=== PATIENT | male | born 1985 | race African-American/Black ===

== ENCOUNTER 2022-03-05 03:11 | Emergency (ER) | payer BC, SELFPAY ==
[2022-03-05 03:26] VITALS: BP 114/78; PULSE 89; RESP 18; TEMP 36.6; O2SAT 99; BMI 28.9
--- NOTE | 2022-03-05 03:43 | ED.GENADULT ---
HPI - General Adult General Chief complaint: Ear/Nose/Throat Problem Stated complaint: Right Ear Pain Time Seen by Provider: 03/05/22 03:27 History of Present Illness HPI narrative: 36-year-old man here with 2nd day of right ear pain. Is lightly congested. Otherwise no cough or cold symptoms. He noticed it was really hurting him to eat earlier. Has not noticed any problems with his teeth, they feel like they come together normally. No swelling. No trauma. Further questioning reveals that his does say that he grinds his teeth at night. He does also use ear plugs though does not always remember to [place] He has not tried any treatments. No drainage from his ear. No swimming. Neck pain. It would appear that he uses Q-tips on exam. No sore throat no difficulty swallowing. Related Data Home Medications Medication Instructions Recorded Confirmed atorvastatin 20 mg tablet 20 mg PO QHS 03/05/22 03/05/22 fluticasone propionate 50 1 spray intranasal DAILY PRN 03/05/22 03/05/22 mcg/actuation nasal spray,suspension (Allergy Relief (fluticasone)) insulin aspart U-100 100 unit/mL 1 sliding scale dose subcut 03/05/22 03/05/22 (3 mL) subcutaneous pen USEASDIRECTD insulin glargine 100 unit/mL (3 26 unit subcut QPM 03/05/22 03/05/22 mL) subcutaneous pen metformin 500 mg tablet 500 mg PO BID 03/05/22 03/05/22 omeprazole 20 mg capsule,delayed 20 mg PO DAILY 03/05/22 03/05/22 release psyllium (Hydrocil oral powder) 1 tbsp PO DAILY 03/05/22 03/05/22 Previous Rx's Medication Instructions Recorded fluocinolone acetonide oil 0.01 % 5 drp Otic (ear-right) BID 7 days 03/05/22 ear drops #15 mL Allergies Allergy/AdvReac Type Severity Reaction Status Date / Time No Known Drug Allergies Allergy Verified 03/05/22 03:25 Review of Systems Status of ROS: Reports: 6 or more systems reviewed and unremarkable except as noted in History and below [facility] Medical History DM (diabetes mellitus), type 2 GERD (gastroesophageal reflux disease) Hyperlipidemia Surgical History No significant past surgical history Social History Smoking Status: Current every day smoker What tobacco products do you use: cigarettes Do you use any of these nicotine containing products: None Second hand tobacco smoke exposure: No How often do you have a drink containing alcohol: never How often do you have six or more drinks on one occasion: Never AUDIT-C Alcohol total score: 0 Non-prescribed substance use: denies use Exam Narrative: Exam Narrative: Calm. NAD. Occasional sniffle. Breathing easily. Neck is supple without lymphadenopathy. Left TM is unremarkable as is the ear canal. Right TM suggestion of a little bit of fluid some mild erythema in the ear canal not inconsistent with cleaning I do not see edematous changes however. He is tender to placement of the speculum in various locations in the ear canal. Most tender though to palpation of the right TMJ versus the left. Of dentition is in good repair PICC does have last 2 molars extracted. There is no swelling in the area. He has a crown on the posterior-most molar. Const: Vital Signs, click to edit/add: Vital Signs - 24 hr 03/05/22 03:26 Temperature 97.9 F Pulse Rate [Right Pulse Oximeter] 89 Respiratory Rate 18 Blood Pressure [Ri ght Upper Arm] 114/78 Pulse Oximetry 99 Oxygen Delivery Me thod Room Air Documenting provider has reviewed patient's vital signs: yes Course Vital Signs Vital signs: Initial Vital Signs Temperature 97.9 F 03/05/22 03:26 Temperature Source Temporal Artery Scan 03/05/22 03:26 Pulse Rate 89 03/05/22 03:26 Respiratory Rate 18 03/05/22 03:26 Blood Pressure 114/78 03/05/22 03:26 Blood Pressure Mean 90 03/05/22 03:26 Blood Pressure Position Sitting 03/05/22 03:26 Pulse Oximetry 99 03/05/22 03:26 Oxygen Delivery Method 03/05/22 03:26 Vital Signs Temperature 97.9 F 03/05/22 03:26 Pulse Rate 89 03/05/22 03:26 Respiratory Rate 18 03/05/22 03:26 Blood Pressure 114/78 03/05/22 03:26 Pulse Oximetry 99 03/05/22 03:26 Oxygen Delivery Method 03/05/22 03:26 Temperature 97.9 F 03/05/22 04:10 Pulse Rate 79 03/05/22 04:10 Respiratory Rate 18 03/05/22 04:10 Blood Pressure 115/70 03/05/22 04:10 Pulse Oximetry 99 03/05/22 04:10 Oxygen Delivery Method 03/05/22 04:10 Medical Decision Making MDM Narrative Medical decision making narrative: Remains a little skeptical that the joint itself could be causing all of his problem. Is wondering if I could still prescribe steroid drops. Also requesting work note Discharge Plan Discharge Clinical Impression: Temporomandibular joint (TMJ) pain Patient Disposition: Home, Self-Care Condition: Stable Instructions: Temporomandibular Disorder (ED) Additional Instructions: A few times a day you can do the exercises that I described of resisted tension on the jaw and the various movements and hold each for 10 seconds. As any other joint, trying to do things that hurt. Decrease level of activity with this joint and might try icing the area as well. I like the screw top ice bags that you can full with ice and water. Ice a couple of times a day. Avoid excessive chewing in particular do not chew gum at this point. Eat softer foods over this next week or 2. Do not take large bites/open your mouth wide. You might benefit from using a silicone bite guard/mouth guard overnight; could buy in the local pharmacy. https://[employer].com/daily/pain/qkg-qcrvvygbr-cb-sgbhekv-uts-ubdu/ https://www.[employer].com/fitness-exercise/nyun-szyrpvxrp-jgj-temporomandibular-joint#1 I understand you have concerns about inflammation in your year and certainly severe plugs could be a cause of that. I have sent in some steroid drops for you to the pharmacy though I think that inflammation of the ear canal is less likely to be a problem Otherwise in the short term with a little food can take up to 800 mg of ibuprofen per dose or up to to 1000 mg of acetaminophen per dose. An alternative to the ibuprofen might be up to 500mg of naproxen 2 times daily. Be seen if not improving in 2 weeks. You might then follow-up with your primary care or a dentist. Prescriptions: New fluocinolone acetonide oil 0.01 % drops 5 drp Otic (ear-right) BID 7 Days Qty: 15 0RF No Action insulin glargine 100 unit/mL (3 mL) insulin pen 26 unit subcut QPM insulin aspart U-100 100 unit/mL (3 mL) insulin pen 1 sliding scale dose subcut USEASDIRECTD Label Comments: 4 units before breakfast, 8 units before lunch, 8 units before dinner Hydrocil Powder 1 tbsp PO DAILY Rx Instructions: mix into at least 8 oz of water or juice before administering atorvastatin 20 mg tablet 20 mg PO QHS metformin 500 mg tablet 500 mg PO BID omeprazole 20 mg capsule,delayed release(DR/EC) 20 mg PO DAILY fluticasone propionate [Allergy Relief (fluticasone)] 50 mcg/actuation spray,suspension 1 spray intranasal DAILY PRN Rx Instructions: administer into each nostril Stand Alone Forms: [facility] Info Instructions
--- OUTSIDE RECORDS SUMMARY | 2022-03-05 03:55 | XMS_ITS | Encounter Summary ---
:1985 Author Organization [place] Address [address] [facility] [place] [address] Care Team Providers Name Role Phone Gilberto Weathers MD Primary Care Provider Kiki Acevedo [facility] Unavailable [phone] Finn Harris MD Unavailable Unavailable Wanda Bautista MD Unavailable Gilberto Weathers MD Unavailable Finn Harris MD Unavailable Unavailable Wanda Bautista MD Unavailable Reason for Visit Reason Onset Date Comments Refill Request 03/28/2021 Encounter Details Date Type Department Care Team Description 03/28/2021 MyC Refill [facility] Gilberto Weathers MD Refill Request [place] [address] [place] [address] [place] [address] [facility] [place] [address] [phone] Social History Tobacco Use Types Packs/Day Years Used Date Smoking Tobacco: Every Day Cigarettes 0.3 5 Smokeless Tobacco: Never Alcohol Use Standard Drinks/Week Comments No 0 (1 standard drink = 0.6 oz pure alcoho l) Intimate Partner Violence Answer Date Recorded Within the last year, have you been afraid of your partner o r No 03/10/2021 ex-partner? Within the last year, have you been humiliated or emotionall y No 03/10/2021 abused in other ways by your partner or ex-partner? Within the last year, have you been kicked, hit, slapped, or No 03/10/2021 otherwise physically hurt by your partner or ex-partner? Within the last year, have you been raped or forced to have any No 03/10/2021 kind of sexual activity by your partner or ex-partner? Sex Assigned at Date Recorded Male 09/01/2021 8:47 AM CDT COVID-19 Exposure Response Date Recorded In the last month, have you been in contact with No / Unsure 03/10/2021 2:22 PM CDT someone who was confirmed or suspected to have Coronavirus / COVID-19? documented as of this encounter Miscellaneous Notes Telephone Encounter - Mervat Beckman RN - 03/28/2021 2:07 PM CDT Routing refill request to provider for review/approval because: Labs not current: Requested Prescriptions Pending Prescriptions Disp Refills ??? insulin glargine (LANTUS PEN) 100 UNIT/ML pen Sig: Inject 20 Units Subcutaneous At Bedtime Long Acting Insulin Protocol Failed - 03/28/2021 2:03 PM Failed - Serum creatinine on file in past 12 months Recent Labs Lab Test 11/04/18 1451 CR 0.70 Ok to refill medication if creatinine is low Passed - HgbA1C in past 3 or 6 months If HgbA1C is 8 or greater, it needs to be on file within the past 3 months. If less than 8, must beon file within the past 6 months. Recent Labs Lab Test 12/10/20 1018 A1C 12.7* Passed - Medication is active on med list Passed - Patient is age 18 or older Passed - Recent (6 mo) or future (30 days) visit within the authorizing provider's specialty Patient had office visit in the last 6 months or has a visit in the next 30 days with authorizing provider or within the authorizing provider's specialty. See Patient Info tab in inbasket, or Choose Columns in Meds & Orders section of the refill encounter. Telephone Encounter - Mervat Rodrigues - 03/28/2021 1:49 PM CDT Patient called and confirmed [facility] [address] even though [facility] [place]. Telephone Encounter - Mervat Beckman RN - 03/28/2021 1:09 PM CDT Myc message sent to patient asking which [facility] sent to Telephone Encounter - Valentina Dumont - 03/28/2021 1:01 PM CDT Patient calls and is out of medication. Please see MyChart message. documented in this encounter Plan of Treatment Upcoming Encounters Date Type Specialty Care Team Description 06/16/2022 Virtual Visit Endocrinology Gilberto Weathers MD [address] [place], [place] [phone] Ky Marcos MD [address] [place] [phone] documented as of this encounter Visit Diagnoses Diagnosis Type 2 diabetes mellitus with hyperglyce roula, with long-term current use of insulin (H) documented in this encounter Care Teams Administrative Coordinator Relationship Specialty Start Date End Date Gilberto Weathers, PCP - General Internal Medicine 01/13/16 [address] [place], [place] [address] Kiki Acevedo Pharmacist Pharmacist 11/08/18 04/29/21 Winter [facility] [address] [id number] Finn Harris MD Endocrinology, 12/23/20 MD [place] [facility], [facility] Metabolism Wanda Bautista MD Ophthalmology 12/31/[address] [place] [address] [place] [address] Gilberto Weathers, Assigned PCP 01/05/21 [place] [address] Finn aHrris Assigned Endocrinology 02/09/21 MD [place] Provider NO INFO AVAILABLE Wanda Bautista, Assigned Surgical 02/02/21 Provider [address] [place] [address] documented as of this encounter
--- OUTSIDE RECORDS SUMMARY | 2022-03-05 03:55 | XMS_ITS | Encounter Summary ---
:1985 Author Organization [place] Address [facility] [place] [address] Care Team Providers Name Role Phone Gilberto Weathers MD Primary Care Provider Finn Harris MD Unavailable Unavailable Wanda Bautista MD Unavailable Gilberto Weathers MD Unavailable Finn Harris MD Unavailable Unavailable Wanda Bautista MD Unavailable Encounter Details Date Type Department Care Team Description 05/12/2021 Travel Social History Tobacco Use Types Packs/Day Years Used Date Smoking Tobacco: Every Day Cigarettes 0.5 5 Smokeless Tobacco: Never Alcohol Use Standard [...] last month, have you been in contact Unable to assess 05/12/2021 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 documented as of this encounter Plan of Treatment Upcoming Encounters Date Type Specialty Care Team Description 06/16/2022 Virtual Visit Endocrinology Gilberto Weathers MD [address] [place] [address] Ky Marcos MD [address] [place] [address] documented as of this encounter Visit Diagnoses Not on filedocumented in this encounter Additional Health Concerns Infection Onset Date Last Indicated Resolved Time Rule Out COVID-19 05/12/2021 05/12/2021 05/12/2021 12: 08 PM MULLING MACHINE OPERATOR COVID-19 05/12/2021 05/12/2021 06/02/2021 11:39 PM MULLING MACHINE OPERATOR documented as of this encounter Care Teams Net Maker Relationship Specialty Start Date End Date Gilberto Weathers, PCP - General Internal Medicine 01/13/[address] [place], [place] [phone] Finn Harris MD Endocrinology, 12/23/20 MD [place] Diabetes, and Metabolism Wanda Bautista MD Ophthalmology 12/31/[address] [place] [phone] Gilberto Weathers, Assigned PCP 01/05/21 [address] [place] [address] Finn Harris Assigned Endocrinology 02/09/21 MD [place] Provider NO INFO AVAILABLE Wanda Bautista, Assigned Surgical 02/02/21 MD Provider [address] [place] [phone] documented as of this encounter
--- OUTSIDE RECORDS SUMMARY | 2022-03-05 03:55 | XMS_ITS | Encounter Summary ---
:1985 Author Organization [place] Address [facility] [place] [address] Care Team Providers Name Role Phone Gilberto Weathers MD Primary Care Provider Kiki Acevedo [facility] Unavailable [phone] Finn Harris MD Unavailable Unavailable Wanda Bautista MD Unavailable Gilberto Weathers MD Unavailable Finn Harris MD Unavailable Unavailable Wanda Bautista MD Unavailable Encounter Details Date Type Department Care Team Description 03/10/2021 Travel Social History Tobacco Use Types Packs/Day [...] Weathers MD [address] [place], [place] [phone] Ky Marcos MD [address] [place] [address] documented as of this encounter Visit Diagnoses Not on filedocumented in this encounter Care Teams Fermenter Champagne Relationship Specialty Start Date End Date Gilberto Weathers, PCP - General Internal Medicine 01/13/16 MD [address] [place], [place] [phone] Kiki Acevedo Pharmacist Pharmacist 11/08/18 [facility] [address] [phone] Finn Harris MD Endocrinology, 12/23/20 MD [place] [facility], and Metabolism Wanda Bautista MD Ophthalmology 12/31/[address] [place] [phone] Gilberto Weathers, Assigned PCP 01/05/21 MD [address] [place], [place] [address] Finn Harris Assigned Endocrinology 02/09/21 MD [place] Provider NO INFO AVAILABLE Wanda Bautista, Assigned Surgical 02/02/21 MD Provider [address] [place] [phone] documented as of this encounter
--- OUTSIDE RECORDS SUMMARY | 2022-03-05 03:55 | XMS_ITS | Encounter Summary ---
:1985 Author Organization [place] Address [address] [facility] [place] [address] Care Team Providers Name Role Phone Gilberto Weathers MD Primary Care Provider Finn Harris MD Unavailable Unavailable Wanda Bautista MD Unavailable Gilberto Weathers MD Unavailable Finn Harris MD Unavailable Unavailable Wanda Bautista MD Unavailable Mariah Mcmanus [facility] Unavailable Ky Marcos MD Unavailable Encounter Details Date Type Department Care Team Description 02/27/2022 Lab [facility] Jesus quintana for hepatitis C screening Meredith Laborator test (Primary Dx) [address] [place] [address] Social History Tobacco Use Types Packs/Day Years [...] Date Recorded Male 09/01/2021 8:47 AM CDT documented as of this encounter Plan of Treatment Upcoming Encounters Date Type Specialty Care Team Description 06/16/2022 Virtual Visit Endocrinology Gilberto Weathers MD [address] [place], [place] [address] Ky Marcos MD [address] [place] [address] Scheduled Orders Name Type Priority Associated Diagnoses Order S chedule Hepatitis C Screen Lab Routine Need for hepatitis C E xpected: 02/24/2022 Reflex to HCV RNA Quant screening test (A pproximate), and Genotype Expires: 2022 documented as of this encounter Visit Diagnoses Diagnosis Need for hepatitis C screening test - Pr imary Special screening examination for other specified viral diseases documented in this encounter Care Teams Vehicle Maintenance Technician Relationship Specialty Start Date End Date Gilberto Weathers, PCP - General Internal Medicine 01/13/16 [address] [place], [place] [address] Finn Harris MD Endocrinology, 12/23/20 MD [place] Diabetes, and Metabolism Wanda Bautista MD Ophthalmology 12/31/[address] [place] [phone] Gilberto Weathers, Assigned PCP 01/05/21 MD [address] [place], [place] [address] Finn Harris Assigned Endocrinology 02/09/21 MD [place] Provider NO INFO AVAILABLE Wanda Bautista, Assigned Surgical 02/02/[address] [place] [phone] Mariah Mcmanus, Assigned [facility] Pharmacist 02/18/22 [facility] [address] [facility] [address] [place] [address] Ky Marcos MD Physician Endocrinology, 02/20/22 [address] [place] [facility], [place] [address] documented as of this encounter
--- OUTSIDE RECORDS SUMMARY | 2022-03-05 03:55 | XMS_ITS | Encounter Summary ---
:1985 Author Organization [place] Address [facility] 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 documented as of this encounter Plan of Treatment Upcoming Encounters Date Type Specialty Care Team Description 06/16/2022 Virtual Visit Endocrinology Gilberto Weathers MD [address] [place] [address] Ky Marcos MD [address] [place] [address] documented as of this encounter Visit Diagnoses Not on filedocumented in this encounter Additional Health Concerns Infection Onset Date Last Indicated Resolved Time Rule Out COVID-19 06/10/2021 06/10/2021 06/10/2021 6:5 7 PM DISTILLERY MILLER HELPER documented as of this encounter Care Teams Plant Pathology Teacher Relationship Specialty Start Date End Date Gilberto Weathers, PCP - General Internal Medicine 01/13/16 [place] [address] Finn Harris MD Endocrinology, 12/23/20 MD [place] [facility], [facility] Metabolism Wanda Bautista, Ophthalmology 12/31/[address] [place] [phone] Gilberto Weathers, Assigned PCP 01/05/21 [address] [place], [place] [address] Finn Harris Assigned Endocrinology 02/09/21 MD [place] Provider NO INFO AVAILABLE Wanda Bautista, Assigned Surgical 02/02/21 MD Provider [address] [place] [phone] documented as of this encounter
--- OUTSIDE RECORDS SUMMARY | 2022-03-05 03:55 | XMS_ITS | Encounter Summary ---
:1985 Author Organization [place] Address [facility] [place] [address] Care Team Providers Name Role Phone Gilberto Weathers MD Primary Care Provider Finn Harris MD Unavailable Unavailable Wanda Bautista MD Unavailable Gilberto Weathers MD Unavailable Finn Harris MD Unavailable [facility] Unavailable Sarah Castañeda [facility] Unavailable Mariah Mcmanus [facility] Unavailable Ky Marcos MD Unavailable Reason for Visit Reason Onset Date Comments Refill Request 02/23/2022 Continuous Blood Glu c Sensor (FREESTYLE JONI [address]) [facility] Encounter Details Date Type Department Care Team Description 02/23/2022 Refill [facility] Finn Harris l Request Clinic Baldo Houston MD (Continuous Blood Gluc [address] [facility] NO INFO Sensor (DARRENSTYLE JACKELYN Bernardo [id number] AVAILABLE [address]) [facility]) [phone] Social History Tobacco Use Types Packs/Day Years [...] AM CDT documented as of this encounter Miscellaneous Notes Telephone Encounter - Antonella Reeves RN - 02/27/2022 1:42 PM CDT Routing refill request to provider for review/approval because: Drug not on the [facility] refill protocol Previously ordered by Endocrinology. Antonella Reeves RN [facility] Telephone Encounter - Janusz Kelly - 02/23/2022 8:39 AM CDT Requested Prescriptions Pending Prescriptions Disp Refills ??? Continuous Blood Gluc Sensor (FREESTYLE JONI 2 SENSOR) MISC 6 each 3 Si each every 14 days There is no refill protocol information for this order Last office visit: Visit date not found with prescribing provider: Dr. Harris Future Office Visit: [facility] documented in this encounter Plan of Treatment Upcoming Encounters Date Type Specialty Care Team Description 06/16/2022 Virtual Visit Endocrinology Gilberto Weathers MD [address] [place] [address] Ky Marcos MD [address] [place] [address] documented as of this encounter Visit Diagnoses Diagnosis Type 1 diabetes mellitus without complic ation (H) Type I (juvenile type) diabetes mellitus without mention of complication, not stated as uncontrolled documented in this encounter Care Teams Haul Truck Driver Relationship Specialty Start Date End Date Gilberto Weathers, PCP - General Internal Medicine 01/13/16 [address] [place] [address] Finn Harris MD Endocrinology, 12/23/20 MD [place] Diabetes, and Metabolism Wanda Bautista, Ophthalmology 12/31/[address] [place] [phone] Gilberto Weathers, Assigned PCP 01/05/21 [address] [place] [address] Finn Harris Assigned Endocrinology 02/09/21 MD [place] Provider NO INFO AVAILABLE Wanda Bautista, Assigned Surgical 02/02/21 MD Provider [address] [place] [phone] Sarah Castañeda, Pharmacist 02/03/22 02/23/22 [facility] [address] [place] [address] [place] [address] Mariah Mcmanus, Assigned [facility] Pharmacist 02/18/22 [facility] [address] [facility] [address] [place], [place] [address] Ky Marcos MD Physician Endocrinology, 02/20/22 [address] [place] [facility], [address] Metabolism [place], [place] [phone] documented as of this encounter
--- OUTSIDE RECORDS SUMMARY | 2022-03-05 03:55 | XMS_ITS | Encounter Summary ---
:1985 Author Organization English Address [facility] [place] [address] Care Team Providers Name Role Phone Gilberto Weathers MD Primary Care Provider Finn Harris MD Unavailable Unavailable Wanda Bautista MD Unavailable Gilberto Weathers MD Unavailable Finn Harris MD Unavailable Unavailable Wanda Bautista MD Unavailable Reason for Referral Consultation (Routine: Next available opening) - Pending Review Specialty Diagnoses / Procedures Referred By Contact Refer red To Contact Diagnoses Lab test positive for detection of COVID-19 virus Radha Calvillo CNP [facility] [address] [place] [address] Referral ID Status Reason Start Date Expiration Date Visits V isits Requested Authorized [id number] Pending 05/12/2021 05/12/2022 1 1 Review OTICS PROSTHETICS TECHNICIAN Reason for Visit Reason Comments Covid Concern Pt reports fever, body aches , PALUMBO andf sore throat that started yesterday. Encounter Details Date Type Department Care Team Description 05/12/[address] [facility] Radha Calvillo CNP Lab test positive for [facility] detection of COVID-19 Dept PA virus [address] [facility] [address] [place] [address] JACKELYN HUERTAS [id number] [phone] Social History Tobacco Use Types Packs/Day Years [...] contact Unable to assess 05/12/2021 10:58 AM ORTHOTICS PROSTHETICS TECHNICIAN with someone who was confirmed or suspected to have Coronavirus / COVID-19? documented as of this encounter Last Filed Vital Signs Vital Sign Reading Time Taken Comments Blood Pressure 133/59 05/12/2021 10:59 AM ORTHOTICS PROSTHETICS TECHNICIAN Pulse 111 05/12/2021 10:59 AM ORTHOTICS PROSTHETICS TECHNICIAN Temperature 37.7 ??C (99.8 ??F) 05/12/2021 10:59 AM ORTHOTICS PROSTHETICS TECHNICIAN Respiratory Rate 16 05/12/2021 10:59 AM ORTHOTICS PROSTHETICS TECHNICIAN Oxygen Saturation 100% 05/12/2021 11:20 AM ORTHOTICS PROSTHETICS TECHNICIAN Inhaled Oxygen Concentration - - Weight - - Height - - Body Mass Index - - documented in this encounter Discharge Instructions Discharge InstructionsRadha Calvillo CNP - 05/12/2021 12:16 PM CST We know it can be scary to hear that you might have COVID-19. So our team can help track your symptoms and make sure you are doing ok over the next two weeks, we use a program called [email or web address] to keep in touch. When you receive an email from [facility], please consider enrolling in our monitoringprogram. There is no cost to you for monitoring. Here is a URL where you can learn more: [email or web address] Discharge Instructions COVID-19 COVID-19 is the disease caused by a new coronavirus. The virus spreads from [id number]-oybdmu primarily by droplets when an infected person coughs or sneezes and the droplets are then breathed in by another person. There are tests available to diagnose COVID-19. You may have been diagnosed with COVID, may be being tested for COVID and have a pending test result, or may have been exposed to COVID. Symptoms of COVID-19 Many people have no symptoms or mild symptoms. Symptoms may usually appear 4 to 5 days (up to 14 days) after contact with a person with COVID-19. Some people will get severe symptoms and pneumonia. Usual symptoms are: ? Fever ? Cough ? Trouble breathing Less common symptoms are: Headache, body aches, sore throat, sneezing, diarrhea, loss of taste or smell. Isolation and Quarantine You may have been seen because you have symptoms, had an exposure, or had some other concern about possible COVID. The best way to stop the spread of the virus is to avoid contact with others. Isolation refers to sick people staying away from people who are not sick. A person in quarantine islimiting activity because they were exposed and are waiting to see if they might become sick. If you test positive for COVID, you should stay home (isolation) for at least 10 days after your symptoms began, and for 24 hours with no fever and improvement of symptoms--whichever is longer. (Your fever should be gone for 24 hours without using fever-reducing medicine). If you have no symptoms, youshould stay home (isolation) for 10 days from the day of the test. If you have been vaccinated for COVID, the vaccination will not cause you to test positive so a positive test result generally is a ???true positive?? . For example, if you have a fever and cough for 6 days, you need to stay home 4 more days with no fever for a total of 10 days. Or, if you have a fever and cough for 10 days, you need to stay home one more day with no fever for a total of 11 days. If you have a high-risk exposure to COVID (you spent 15 minutes or more within six feet of somebody who has COVID), you should stay home (quarantine) for 14 days, unless you are vaccinated. Even if youtest negative for COVID, the CDC recommends a 14-day quarantine from the time of your last exposure to that individual (unless you are vaccinated). There are options for a shortened (<14 day quarantine) you can review at: [email or web address]/coronavirus/close.html#long If you live in the same house as somebody with COVID and cannot separate from them, you will need toquarantine for 14-days after that person's isolation (infectious) period. That means that you may need to quarantine for 24-days after that person became symptomatic/ill. If you are vaccinated and do not develop symptoms, you do not need to quarantine after exposure. If you have symptoms but a negative test, you should stay at home until you are symptom-free and without fever for 24 hours, using the same judgment you would for when it is safe to return to work/school from strep throat, influenza, or the common cold. If you worsen, you should consider being re-evaluated. If you are being tested for COVID because of symptoms and your test is pending, you should stay homeuntil you know your test result. If I have COVID, how should I protect myself and others? Do not go to work or school. Have a friend or relative do your shopping. Do not use public transportation (bus, train) or ridesharing (Lyft, Uber). Separate yourself from other people in your home. As much as possible, you should stay in one room and away from other people in your home. Also, use a separate bathroom, if possible. Avoid handling pets or other animals while sick. Wear a facemask if you need to be around other people and cover your mouth and nose with a tissue when you cough or sneeze. Avoid sharing personal household items. You should not share dishes, drinking glasses, forks/knives/spoons, towels, or bedding with other people in your home. After using these items, they should be washed with soap and water. Clean parts of your home that are touched often (doorknobs, faucets, countertops, etc.) daily. Wash your hands often with soap and water for at least 20 seconds or use an alcohol-based hand advertising photographer containing at least 60% alcohol. Avoid touching your face. Treat your symptoms. You can take Acetaminophen (Tylenol) to treat body aches and fever as needed for comfort. Ibuprofen (Advil or Motrin) can be used as well if you still have symptoms after taking Tylenol. Drink fluids. Rest. Watch for worsening symptoms such as shortness of breath/difficulty breathing or very severe weakness. Employers/workplaces are being asked by the Centers for Disease Control (CDC) to not request notes/documentation for you to return to work or prove that you were ill. You may choose to show your employer this paperwork. Also, repeat testing should not be required to return to work. Exercise/Sports in rare cases, COVID could affect your heart in a way that makes exercise or participation in sports dangerous. If you have a mild COVID illness (fever, cough, sore throat, and similar symptoms but no difficulty breathing or abnormalities of the lung): After your COVID symptoms have resolved, wait 14-days beforereturning to activity. If you have more than a mild illness (meaning that you have problems with your breathing or lungs) or if you participate in competitive or strenuous activity or have a history of heart disease: Please see your primary doctor/provider prior to return to activity/competition. Antibody treatments are available for patients with mild to moderate COVID illness in order to prevent severe illness. In general, only patients with risk factors for severe illness are eligible for treatment. For more information, to see if you are eligible, and to find treatment, go to the [facility]: [email or web address]/diseases/[email or web address]/[email or web address].html Return to the Emergency Department if: If you are developing worsening breathing, shortness of breath, or feel worse you should seek medical attention. If you are uncertain, contact your health care provider/clinic. If you need emergency medical attention, call 911 and tell them you have been ill. OTICS PROSTHETICS TECHNICIAN documented in this encounter Medications at Time of Discharge Medication Sig Dispensed Refills Start Date End Date alcohol swab prep Use to swab area of 100 each 0 9 padsIndications: injection/mendez as Uncontrolled type 2 directed. diabetes mellitus without complication, without long-term current use of insulin atorvastatin (LIPITOR) Take 1 tablet (20 mg) 90 tablet 3 20 MG by mouth daily tabletIndications: Hyperlipidemia LDL goal <100 blood glucose (HOMERO Lancing device to be 1 each 0 03/14 MICROLET 2) lancing used with lancets. deviceIndications: Uncontrolled type 2 diabetes mellitus without complication, without long-term current use of insulin blood glucose (CONTOUR TEST blood sugar ONCE 100 strip 0 NEXT TEST) test DAILY stripIndications: Uncontrolled type 2 diabetes mellitus without complication, without long-term current use of insulin blood glucose Use to test blood 100 each 0 03/14/2019 monitoring (HOMERO sugar One times MICROLET) daily. lancetsIndications: Uncontrolled type 2 diabetes mellitus without complication, without long-term current use of insulin blood glucose To check Blood 1 kit 0 03/14/2019 monitoring (CONTOUR Glucose one time NEXT MONITOR W/DEVICE daily KIT) meter device kitIndications: Uncontrolled type 2 diabetes mellitus without complication, without long-term current use of insulin fluticasone (FLONASE) [place] 1-2 sprays into 16 g 3 50 MCG/ACT nasal both nostrils daily sprayIndications: Congestion of paranasal sinus glucose (BD GLUCOSE) 4 Take 3 tablets by 30 tablet 11 2020 g chewable mouth daily as needed tabletIndications: Type for low blood sugar 1 diabetes mellitus with other specified complication (H) ibuprofen Take 1 tablet (600 20 tablet 0 01/13/2021 (ADVIL/MOTRIN) 600 MG mg) by mouth every 6 tabletIndications: hours as needed Paronychia of finger of right hand omeprazole (PRILOSEC) Take 1 capsule (20 30 capsule [address] mg) by mouth daily capsuleIndications: Epigastric pain polyethylene glycol Take 17 g by mouth 0 02/12/20 21 (MIRALAX) 17 GM/Dose daily as needed for powderIndications: constipation Chronic idiopathic constipation Continuous Blood Gluc 1 each daily 1 each 0 02/05/2021 0 12/03/2021 [employer] Blasting (FREESTYLE JONI 2 READER) DEVIIndications: Type 1 diabetes mellitus without complication (H) Continuous Blood Gluc 1 each every 14 days 6 each 3 01/2202/27/2022 Sensor (FREESTYLE JONI 2 SENSOR) MISCIndications: Type 1 diabetes mellitus without complication (H) insulin glargine Inject 20 Units 15 mL 1 03/28/2021 (LANTUS PEN) 100 Subcutaneous At UNIT/ML penIndications: Bedtime Type 2 diabetes mellitus with hyperglycemia, with long-term current use of insulin (H) insulin pen needle (BD Use 1-4 pen needles 100 each 11 11/2209/01/2021 AUTOSHIELD DUO) 30G X 5 daily or as directed. MMIndications: Type 1 diabetes mellitus with other specified complication (H) metFORMIN (GLUCOPHAGE) TAKE 1 TABLET(1000 60 tablet 0 03/1409/01/2021 1000 MG MG) BY MOUTH TWICE tabletIndications: DAILY WITH MEALS Uncontrolled type 2 diabetes mellitus without complication, without long-term current use of insulin documented as of this encounter ED Notes Finn Markham RN - 05/12/2021 10:59 AM CST Pt reports fever, body aches, [place] andf sore throat that started yesterday. Radha Mathur CNP - 05/12/2021 10:54 AM CST History Chief Complaint: Covid Concern The history is provided by the patient. Ana Mcgowan is a 35 year old male with history of DM II, sinus tachycardia, headaches, who presents with Covid concern. Last night the patient noted onset of sore throat and rhinorrhea. He states he developed chills and myalgias. He did not measure his temperature but felt hot. He has an associated cough and intermittent headache which was improved with Tylenol and resting. He notes no sick contacts. He did have the [employer] Covid vaccination in August 2020, but not has not had a booster. He has not had his flu shot. He states he took Tylenol last evening but has not taken any medication today. He is concerned for Covid testing. He has been eating and drinking without difficulty. He denies abdominal pain and states he has mild constipation which is not uncommon. He notes his blood sugar levels are normal for him recently. Review of Systems Constitutional: Positive for chills. Negative for activity change, fatigue and fever. HENT: Positive for congestion, rhinorrhea and sore throat. Negative for ear pain, tinnitus, trouble swallowing and voice change. Eyes: Negative for photophobia and visual disturbance. Respiratory: Positive for cough. Negative for chest tightness, shortness of breath, wheezing and stridor. Cardiovascular: Negative for chest pain and palpitations. Gastrointestinal: Positive for constipation. Negative for abdominal pain, diarrhea, nausea and vomiting. Musculoskeletal: Positive for myalgias. Negative for arthralgias, back pain, neck pain and neck stiffness. Skin: Negative for rash. Neurological: Positive for headaches. Negative for dizziness, tremors, seizures, syncope, facial asymmetry, speech difficulty, weakness, light-headedness and numbness. Psychiatric/Behavioral: Negative for confusion. All other systems reviewed and are negative. Allergies: The patient has no known allergies. Medications: Atorvastatin Flonase Glucose Insulin glargine Metformin Miralax Omeprazole Past Medical History: Chronic constipation Episodic cluster headache Obesity Sinus tachycardia Type 2 diabetes Past Surgical History: The patient denies past surgical history. Family History: Mother: Glaucoma Father: Hypertension Social History: Presents to the emergency department alone History of tobacco use disorder Physical Exam Patient Vitals for the past 24 hrs: BP Temp Temp src Pulse Resp SpO2 05/12/21 1120 -- -- -- 103 -- 100 % 05/12/21 1059 133/59 99.8 ??F (37.7 ??C) Oral 111 16 99 % Physical Exam Nursing notes reviewed. Vitals reviewed. General: Alert. Well kept. Eyes: Conjunctiva non-injected, non-icteric. Neck/Throat: Moist mucous membranes. Normal voice. No nuchal rigidity. Tonsils 2+ with erythema but no exudate. Uvula midline. No trismus. Cardiac: Regular rhythm. Normal heart sounds. Pulmonary: Clear and equal breath sounds bilaterally. Speaking in full sentences Abdomen: Soft and nontender. Musculoskeletal: Normal gross range of motion of all 4 extremities. Neurological: Alert and oriented x4. Skin: Warm and dry. Normal appearance of visualized exposed skin without rashes or petechiae. Psych: Affect normal. Good eye contact. Emergency Department Course Laboratory: Labs Ordered and Resulted from Time of ED Arrival to Time of ED Departure INFLUENZA A/B & SARS-COV2 PCR MULTIPLEX - Abnormal Result Value Influenza A PCR Negative Influenza B PCR Negative SARS CoV2 PCR Positive (*) STREPTOCOCCUS A RAPID SCREEN W REFELX TO PCR - Normal Group A Strep antigen Negative GROUP A STREPTOCOCCUS PCR THROAT SWAB Emergency Department Course: Reviewed: I reviewed nursing notes, vitals, Care Everywhere and MIIC Assessments: 1114 I obtained history and examined the patient as noted above. He drank three 8 oz glasses of water. 1237 I rechecked the patient and explained findings. Consults: 1204 I spoke with pharmacy regarding the patient's labs. Interventions: 1247 Tylenol 975 mg PO Disposition: The patient was discharged to home. Impression & Plan Medical Decision Making: Ana Mcgowan is a 35 year old male who presents with symptoms that are concerning for possible COVID-19. Vital signs are reassuring, and the patient is not hypoxic. No extra work of breathing, normal mentation, and I do not believe that the patient requires hospitalization at this time. The patientdoes not currently meet criteria for hospitalization. Patient given [facility] guidelines for home isolation and will follow up with PCP. Patient will drink plenty of fluids, take anti-pyretics and OTC decongestants. He was instructed on follow-up with the [place] Department of health to register for monoclonal antibodies and was ordered for Get [facility]. Patient asked to return for severe difficulty breathing or new onset chest pain or other worrisome concerns. Diagnosis: ICD-10-CM 1. Lab test positive for detection of COVID-19 virus U07.1 COVID-19 [facility] Referral Discharge Medications: New Prescriptions No medications on file Scribe Disclosure: I, Jax Knox, am serving as a scribe at 11:06 AM on 05/12/2021 to document services personally performed by Radha Calvillo DNP based on my observations and the provider's statements to me. Radha Calvillo CNP 05/12/21 1411 OTICS PROSTHETICS TECHNICIAN documented in this encounter Miscellaneous Notes Result Encounter Note - Antonio Paulson RN - 05/12/2021 12:49 PM CST Group A Streptococcus PCR is NEGATIVE No treatment or change in treatment [facility] ED lab result Strep Group A protocol. OTICS PROSTHETICS TECHNICIAN documented in this encounter Plan of Treatment Upcoming Encounters Date Type Specialty Care Team Description 06/16/2022 Virtual Visit Endocrinology Gilberto Weathers MD [address] [place] [address] Ky Marcos MD [address] [place], [place] [id number] Scheduled Referrals Name Type Priority Associated Diagnoses Order S chedule COVID-19 Get[facility] Referral Routine: Next Lab test positive Order ed: Loop Referral available opening for detection of 05/12 COVID-19 virus documented as of this encounter Procedures Procedure Name Priority Date/Time Associated Comments Diagnosis INFLUENZA A/B & STAT 05/12/2021 11:03 Results for this SARS-COV2 PCR AM ORTHOTICS PROSTHETICS TECHNICIAN procedure are in MULTIPLEX the results section. STREPTOCOCCUS A RAPID STAT 05/12/2021 11:03 Re sults for this SCREEN W REFELX TO PCR AM ORTHOTICS PROSTHETICS TECHNICIAN proce dure are in the results section. GROUP A STREPTOCOCCUS STAT 05/12/2021 11:03 Re sults for this PCR THROAT SWAB AM ORTHOTICS PROSTHETICS TECHNICIAN procedure ar e in the results section. documented in this encounter Results Group A Streptococcus PCR Throat Swab (05/12/2021 11:03 AM ORTHOTICS PROSTHETICS TECHNICIAN) [facility] Method Time Signature Group A strep Not Detected Not Detected 05/12/2021 [facility] by PCR 3:20 PM ORTHOTICS PROSTHETICS TECHNICIAN LABORATORY Specimen Anatomical Collection Method Collection Time Receive d Time (Source) Location / / Volume Laterality Swab STRUCTURE OF Non-blood 05/12/2021 11:03 05/12/2021 ANTERIOR PORTION Collection / AM ORTHOTICS PROSTHETICS TECHNICIAN 11:25 AM CS T OF NECK / Unknown Unknown Narrative [facility]ORATORY - 05/12/2021 3:[address] The Xpert Xpress Strep A test, performed on the GeneXpert?? Instrument Systems, is a rapid, qualitative in vitro diagnostic t est for the detection of Streptococcus pyogenes (Group A ? - hemolytic Streptococcus, Strep A) in thr oat swab specimens from patients with signs and symptoms of pharyngitis. The Xpert X press Strep A test can be used as an aid in the diagnosis of Group A Streptococcal p haryngitis. The assay is not intended to monitor treatment for Group A Streptococ cus infections. The Xpert Xpress Strep A test utilizes an automated real-time polymera se chain reaction (PCR) to detect Streptococcus pyogenes DNA. Radha [place] [employer] DEAL[facility] LAB - MICRO GENERAL ORDERABL ES Performing Organization Address City/State/ZIP Code Phon e Number [facility] [place] [place] [id number] Diag. Lab [address] [facility] Infectious [place], [place] [phone] Diseases Diagnostic [id number], [facility] Lab (IDDL) [address] [facility], [address] Streptococcus A Rapid Scr w Reflx to PCR (05/12/2021 11:03 AM ORTHOTICS PROSTHETICS TECHNICIAN) Analysis Performed At Patho logist Time Signature Group A Strep Negative Negative 05/12/2021 LABORATORY antigen 11:25 AM ORTHOTICS PROSTHETICS TECHNICIAN Specimen Anatomical Collection Method Collection Time Receive d Time (Source) Location / / Volume Laterality Swab STRUCTURE OF Non-blood 05/12/2021 11:03 05/12/2021 ANTERIOR PORTION Collection / AM ORTHOTICS PROSTHETICS TECHNICIAN 11:10 AM CS T OF NECK / Unknown Unknown Radha [place] [employer] LAB - MICRO GENERAL ORDERABL ES Performing Organization Address City/State/ZIP [place] [phone] [facility] Lab [address] 1[address] floor, [address] (ABNORMAL) Symptomatic; Yes; 05/11/2021 Influenza A/B & SARS-CoV2 (COVID-19) Virus PCR MultiplexNasopharyngeal (05/12/2021 11:03 AM ORTHOTICS PROSTHETICS TECHNICIAN) Patholo gist Method Time Signature Influenza A Negative Negative 05/12/2021 LABORATORY PCR 12:08 PM ORTHOTICS PROSTHETICS TECHNICIAN Influenza B Negative Negative 05/12/2021 LABORATORY PCR 12:08 PM ORTHOTICS PROSTHETICS TECHNICIAN SARS CoV2 PCR Positive (A) Negative 05/12/2021 LABORATOR Y 12:08 PM ORTHOTICS PROSTHETICS TECHNICIAN Comment: POSITIVE: SARS-CoV-2 (COVID-19) RNA detected, presumed positive. Specimen Anatomical Location / Collection Method Collection Bhargav e Received Time (Source) Laterality / Volume Swab NASOPHARYNGEAL Non-blood 05/12/2021 11:03 STRUCTURE / Unknown Collection / AM ORTHOTICS PROSTHETICS TECHNICIAN 11:10 AM ORTHOTICS PROSTHETICS TECHNICIAN Unknown Narrative LABORATORY - 05/12/2021 12:08 PM ORTHOTICS PROSTHETICS TECHNICIAN Testing was performed using the leroy SARS-CoV-2 & Influenza A/B Assay on the leroy Lacy System. This test should be ordered for the detection of SARS-CoV-2 and influenza viruses in individuals who meet clinical and/or epidemiological cri teria. Test performance is unknown in asymptomatic patients. This test is for in vitro diagnostic use under the FDA EUA for laboratories certified under CLIA to p erform moderate and/or high complexity t esting. This test has not been FDA cleared or approved. A negative result does not rule out the presence of PCR inhibitors in the specimen or target RNA in concen tration below the limit of detection for the assay. If only one viral target is positive but coinfection with multiple targets is suspected, the sample should be re-tested with another FDA cleared, appr emelia or authorized test, if coinfection would change clinical management. [facility] Laboratories are certified under the Clinical Laboratory Improvement Amendments of 1988 (CLIA-88) as qualified to perform moderate and/or hig h complexity laboratory testing. Radha Calvillo AUTOMOBILE DEALER LAB - MICRO GENERAL ORDERABL ES Performing Organization Address City/State/ZIP Code Phon e Number LABORATORY [place] [address] Care Lab [address] [place], [address] documented in this encounter Visit Diagnoses Diagnosis Lab test positive for detection of COVID -19 virus documented in this encounter Administered Medications Inactive Administered Medications - up to 3 most recent administrations Medication Order MAR Action Action Date Dose Rate Site acetaminophen (TYLENOL) tablet Given by Other 05/12/2021 12:47 PM ORTHOTICS PROSTHETICS TECHNICIAN 975 mg 975 mg 975 mg, Oral, ONCE, On 05/12/21 at 1240, For 1 dose, Maximum acetaminophen dose from all sources = 75 mg/kg/day not to exceed 4 grams/day. documented in this encounter Active and Recently Administered Medications Times are shown in ORTHOTICS PROSTHETICS TECHNICIAN. Scheduled Medication Order 05/10/2021 05/11/2021 05/12/2021 acetaminophen (TYLENOL) tablet 975 mg (COMPLETED) 1247 (Given by Other - Provider: Melanie Baez RN - Comment: JAIME Garcia) 975 mg, Oral, ONCE, On Wed05/12/21 at 1 240, For 1 dose, Maximum acetaminophen dose from all sources = 75 mg/kg/day not to exceed 4 grams/day. 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 COVID-05/12/2021 05/12/2021 06/02/2021 11:39 PM ORTHOTICS PROSTHETICS TECHNICIAN documented as of this encounter Care Teams Director Learning Services Relationship Specialty Start Date End Date Gilberto Weathers, PCP - General Internal Medicine 01/13/16 [address] [place], [place] [phone] Finn Harris MD Endocrinology, 12/23/20 MD [place] Diabetes, and Metabolism Wanda Bautista MD Ophthalmology 12/31/[address] [place] [address] [id number] Gilberto Weathers, Assigned PCP 01/05/21 [address] [place] [address] Finn Harris Assigned Endocrinology 02/09/21 MD [place] Provider NO INFO AVAILABLE Wanda Bautista, Assigned Surgical 02/02/[address] [place] [address] [phone] documented as of this encounter
--- OUTSIDE RECORDS SUMMARY | 2022-03-05 03:55 | XMS_ITS | Encounter Summary ---
:1985 Author Organization [place] Address [facility] [place] [address] Care Team Providers Name Role Phone Gilberto Weathers MD Primary Care Provider Finn Harris MD Unavailable Unavailable Wanda Bautista MD Unavailable Gilberto Weathers MD Unavailable Finn Harris MD Unavailable Unavailable Wanda Bautista MD Unavailable Mariah Mcmanus [facility] Unavailable Encounter Details Date Type Department Care Team Description 10/23/2021 [facility] Mariah Mcmanus, [address] [place] [address] [address] [place] [address] Social History Tobacco Use Types Packs/Day Years [...] this encounter Miscellaneous Notes Telephone Encounter - Mariah Mcmanus [facility] - 10/23/2021 2:32 PM CDT Called patient to schedule follow-up. He wants to see provider to get a referral to the GI clinic. Scheduled with Dr. Corona on 11/[address] Weathers is booked out until the end of November. documented in this encounter Plan of Treatment Upcoming Encounters Date Type Specialty Care Team Description 06/16/2022 Virtual Visit Endocrinology Gilberto Weathers MD [address] [place], [place] [phone] Ky Marcos MD [address] [place] [address] documented as of this encounter Visit Diagnoses Not on filedocumented in this encounter Care Teams Payment Specialist Relationship Specialty Start Date End Date Gilberto Weathers, PCP - General Internal Medicine 01/13/16 [address] [place], [place] [address] Finn Harris MD Endocrinology, 12/23/20 MD [place] Diabetes, and Metabolism Wanda Bautista MD Ophthalmology 12/31/[address] [place] [phone] Gilberto Weathers, Assigned PCP 01/05/21 [address] [place], [place] [address] Finn Harris Assigned Endocrinology 02/09/21 MD [place] Provider NO INFO AVAILABLE Wanda Bautista, Assigned Surgical 02/02/21 Provider [address] [place] [address] Mariah Mcmanus, Assigned MTM Pharmacist 10/18/21 02/06/22 [facility] [address] [facility] [address] [place] [address] documented as of this encounter
--- OUTSIDE RECORDS SUMMARY | 2022-03-05 03:55 | XMS_ITS | Encounter Summary ---
:1985 Author Organization [place] Address [address] [place] [id number] Care Team Providers Name Role Phone Gilberto Weathers MD Primary Care Provider Finn Harris MD Unavailable Unavailable Wanda Bautista MD Unavailable Gilberto Weathers MD Unavailable Finn Harris MD Unavailable Unavailable Wanda Bautista MD Unavailable Mariah Mcmanus [facility] Unavailable Sarah Castañeda [facility] Unavailable [facility] Unavailable Ky Marcos MD Unavailable Encounter Details Date Type Department Care Team Description 05/13/2021 Documentation Only INTERFACED REPORT Unknown, Provider Social History Tobacco Use Types Packs/Day Years [...] contact Unable to assess 05/12/2021 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 documented as of this encounter Plan of Treatment Upcoming Encounters Date Type Specialty Care Team Description 06/16/2022 Virtual Visit Endocrinology Gilberto Weathers MD [address] [place], [place] [phone] Ky Marcos MD [address] [place] [address] documented as of this encounter Visit Diagnoses Not on filedocumented in this encounter Additional Health Concerns Infection Onset Date Last Indicated Resolved Time COVID-19 05/12/2021 05/12/2021 06/02/2021 11:39 PM FINANCIAL SERVICE PROFESSIONAL Rule Out COVID-19 06/10/2021 06/10/2021 06/10/2021 6:5 7 PM FINANCIAL SERVICE PROFESSIONAL Rule Out COVID-19 10/28/2021 10/28/2021 10/29/2021 11: 41 AM CDT documented as of this encounter Care Teams Torpedo Man Relationship Specialty Start Date End Date Gilberto Weathers, PCP - General Internal Medicine 01/13/16 [address] [place], [place] [phone] Finn Harris MD Endocrinology, 12/23/20 MD [place] Diabetes, and Metabolism Wanda Bautista MD Ophthalmology 12/31/[address] [place] [address] [phone] Gilberto Weathers, Assigned PCP 01/05/21 [address] [place], [place] [address] Finn Harris Assigned Endocrinology 02/09/21 MD [place] Provider NO INFO AVAILABLE Wanda Bautista, Assigned Surgical 02/02/21 MD Provider [address] [place] [address] Mariah Mcmanus, Assigned [place] Pharmacist 10/18/21 02/06/22 [facility] [address] [facility] [address] [place] [address] Sarah Castañeda, Pharmacist 02/03/22 02/23/22 [facility] [address] [facility] [place] [address] Mariah Mcmanus, Assigned MTM Pharmacist 02/18/22 [facility] [address] [facility] [address] [place], [place] [phone] Ky Marcos MD Physician Endocrinology, 02/20/22 [address] [place] Diabetes, [place] [address] documented as of this encounter
--- OUTSIDE RECORDS SUMMARY | 2022-03-05 03:55 | XMS_ITS | Clinical Summary ---
:1985 Author Organization [place] Address [facility] [place] [address] Care Team Providers Name Role Phone Gilberto Weathers MD Primary Care Provider Finn Harris MD Unavailable Unavailable Wanda Bautista MD Unavailable Gilberto Weathers MD Unavailable Finn Harris MD Unavailable Unavailable Wanda Bautista MD Unavailable Mariah Mcmanus [facility] Unavailable Ky Marcos MD Unavailable Allergies No known active allergies Medications Medication Sig Dispensed Refills Start End Date Status Date blood glucose To check Blood 1 kit 0 A ctive monitoring Glucose one time 9 (CONTOUR NEXT daily MONITOR W/DEVICE KIT) meter device kitIndications: Uncontrolled type 2 diabetes mellitus without complication, without long-term current use of insulin blood glucose TEST blood sugar 100 strip 0 Active (CONTOUR NEXT ONCE DAILY 9 TEST) test stripIndications: Uncontrolled type 2 diabetes mellitus without complication, without long-term current use of insulin blood glucose Lancing device 1 each 0 A ctive (HOMERO MICROLET 2) to be used with 9 lancing lancets. deviceIndications: Uncontrolled type 2 diabetes mellitus without complication, without long-term current use of insulin blood glucose Use to test 100 each 0 Acti ve monitoring (HOMERO blood sugar One 9 MICROLET) times daily. lancetsIndications : Uncontrolled type 2 diabetes mellitus without complication, without long-term current use of insulin alcohol swab prep Use to swab area 100 each 0 Active padsIndications: of 9 Uncontrolled type injection/mendez 2 diabetes as directed. mellitus without complication, without long-term current use of insulin fluticasone [place] 1-2 sprays 16 g 3 A ctive (FLONASE) 50 into both 1 MCG/ACT nasal nostrils daily sprayIndications: Congestion of paranasal sinus omeprazole Take 1 capsule 30 capsule 3 Act molly (PRILOSEC) 20 MG (20 mg) by mouth [address] DR daily capsuleIndications : Epigastric pain glucose (BD Take 3 tablets 30 tablet 11 Act molly GLUCOSE) 4 g by mouth daily 1 chewable as needed for tabletIndications: low blood sugar Type 1 diabetes mellitus with other specified complication (H) ibuprofen Take 1 tablet 20 tablet 0 Active (ADVIL/MOTRIN) 600 (600 mg) by 1 MG mouth every 6 tabletIndications: hours as needed Paronychia of finger of right hand atorvastatin Take 1 tablet 90 tablet 3 Act molly (LIPITOR) 20 MG (20 mg) by mouth 1 tabletIndications: daily Hyperlipidemia LDL goal <100 polyethylene Take 17 g by 0 Acti ve glycol (MIRALAX) mouth daily as 1 17 GM/Dose needed for powderIndications: constipation Chronic idiopathic constipation insulin pen needle Use 1-4 pen 100 each 11 Active (BD AUTOSHIELD needles daily or 2 DUO) 30G X 5 as directed. MMIndications: Type 1 diabetes mellitus with other specified complication (H) Continuous Blood 1 each daily 1 each 0 Active Gluc Property Management Bookkeeper 2 (FREESTYLE JONI 2 READER) DEVIIndications: Type 1 diabetes mellitus without complication (H) insulin glargine Inject 26 Units 15 mL 1 Active (LANTUS PEN) 100 Subcutaneous At 2 UNIT/ML Bedtime penIndications: Type 2 diabetes mellitus with hyperglycemia, with long-term current use of insulin (H) metFORMIN Take 1 tablet 180 tablet 1 Activ e (GLUCOPHAGE) 500 (500 mg) by 2 MG mouth 2 times tabletIndications: daily (with Type 2 diabetes meals) mellitus with hyperglycemia, with long-term current use of insulin (H) psyllium Take 18 g (1 283 g 1 Active (METAMUCIL/KONSYL) Tablespoonful) 2 58.6 % by mouth daily powderIndications: Chronic idiopathic constipation insulin aspart Take 4 units 15 mL 3 Ac tive (NOVOLOG PEN) 100 before 2 UNIT/ML breakfast, 8 penIndications: units before Type 2 diabetes lunch and 8 mellitus with units before hyperglycemia, supper Take 1/2 with long-term doses if blood current use of sugars are insulin (H) 80-100 Hold the dose if blood sugars are less than 80. Max dose 20 units daily Continuous Blood 1 each every 14 6 each 3 Active Gluc Sensor days 2 (FREESTYLE JONI 2 SENSOR) MISCIndications: Type 1 diabetes mellitus without complication (H) Continuous Blood 1 each every 14 6 each 3 0 Discontinued Gluc Sensor days 1 22 (Reorder ) (FREESTYLE JONI 2 SENSOR) MISCIndications: Type 1 diabetes mellitus without complication (H) insulin glargine Inject 20 Units 15 mL 1 0 Discontinued (LANTUS PEN) 100 Subcutaneous At 1 22 UNIT/ML Bedtime penIndications: Type 2 diabetes mellitus with hyperglycemia, with long-term current use of insulin (H) insulin aspart Inject 8 Units 15 mL 1 02/18/20 Discontinued (NOVOLOG PEN) 100 Subcutaneous in 2 22 UNIT/ML pen the morning. With food insulin aspart Take 4 units 15 mL 3 02/19/20 Di scontinued (NOVOLOG PEN) 100 before 2 22 (R eorder) UNIT/ML breakfast, 8 penIndications: units before Type 2 diabetes lunch and 8 mellitus with units before hyperglycemia, supper Take 1/2 with long-term doses if blood current use of sugars are insulin (H) 80-100 Hold the dose if blood sugars are less than 80 Active Problems Problem Noted Date Chronic idiopathic constipation 12/30/2020 Flu-like symptoms 12/09/2020 Slow transit constipation 12/09/2020 Diabetes mellitus, type 2 12/02/2019 Tobacco use disorder 11/03/2018 Uncontrolled type 2 diabetes mellitus without complica tion, without 12/10/2016 long-term current use of insulin Overview: IMO Regulatory Load FEB 2020 Episodic cluster headache, not intractable 01/13/2016 Non morbid obesity due to excess calories 01/13/2016 Chest pain 01/31/2015 Sinus tachycardia 10/15/2014 Resolved Problems Problem Noted Date Resolved Date Diabetes mellitus type 2, controlled Encounters Date Type Specialty Care Team Description 02/27/2022 Lab Lab Need for hepati tis C screening test (Primary Dx) 02/23/2022 Refill Endocrinology Finn Harris Refill Re nakita Houston MD (Continuous Blo od Gluc Sensor (FREESTY LE JONI 2 SENSOR) MISC) 02/19/2022 Telephone Internal Medicine Gilberto Weathers, Ref erral 02/18/2022 Telephone Internal Medicine Gilberto Weathers, Med ication Question 02/17/2022 Virtual Visit Internal Medicine Gilberto Weathers, Ty pe 2 diabetes mellitus with hyperglycemia, with long-term current use of insulin (H) (Primary Dx); MD Need for hepati tis C screening test; Screening for h yperlipidemia; Chronic idiopat hic constipation from Last 3 Months Immunizations Name Administration Dates Next Due Hep B, Peds or Adolescent 07/03/1999, 12/17/1998, 08/15/1998 MMR 12/17/1998, 08/15/1998 Meningococcal (Menomune??) 12/02/2001 OPV, trivalent, live 07/03/1999, 12/17/1998, 08/15/1998 TDAP Vaccine (Adacel) 03/17/2016 Td (Adult), Adsorbed 07/03/1999, 12/17/1998 Tdap (Adacel,Boostrix) 07/03/1999 Typhoid IM 12/02/2001 Varicella 12/17/1998, 08/15/1998 Family History Medical History Relation Comments Hypertension Father Glaucoma Mother Relation Status Comments Father Alive Mother Alive Social History Tobacco Use Types Packs/Day Years Used Date Smoking Tobacco: Every Day Cigarettes 0.5 5 Smokeless Tobacco: Never Tobacco Cessation: Ready to Quit: Yes; C ounseling Given: Yes Alcohol Use Standard Drinks/Week Comments No 0 [...] Date Recorded Male 09/01/2021 8:47 AM CDT Last Filed Vital Signs Vital Sign Reading Time Taken Comments Blood Pressure 122/81 10/28/2021 2:48 PM CDT Pulse 87 10/28/2021 2:48 PM CDT Temperature 36.8 ??C (98.3 ??F) 10/28/2021 2:48 PM CDT Respiratory Rate 12 06/10/2021 3:06 PM 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 Oxygen Saturation 98% 10/28/2021 2:48 PM CDT Inhaled Oxygen Concentration - - Weight 91.5 kg (201 lb 11.2 oz) 09/01/2021 9:55 AM CDT Height 175.3 cm (5' 9) 12/30/2020 1:38 PM CDT Body Mass Index 29.79 12/30/2020 1:38 PM CDT Plan of Treatment Upcoming Encounters Date Type Specialty Care Team Description 06/16/2022 Virtual Visit Endocrinology Gilberto Weathers MD [address] [place], [place] [phone] Ky Marcos MD [address] [place] [address] Health Maintenance Due Date Last Done Comments DIABETIC FOOT EXAM 1985 Pneumococcal Vaccine: 1990 Pediatrics (0 to 5 Years) and At-Risk Patients (6 to 64 Years) (1 - PCV) HEPATITIS C SCREENING 2002 YEARLY PREVENTIVE VISIT 11/04/2019 11/03/2018, 01/13/2016 BMP 11/05/2019 11/04/2018, 06/01/2017, 12/10/2016, Additional history exists COVID-19 Vaccine (3 - 10/22/2021 08/27/2021, 08/24/2020 Booster for Nayan series) LIPID 12/30/2021 12/30/2020, 11/04/2018, 06/01/2017, Additional history exists INFLUENZA VACCINE (#1) 2022 A1C 03/03/2022 09/01/2021, 12/10/2020, 11/04/2018, Additional history exists EYE EXAM 03/10/2022 03/10/2021, 03/10/2021, 01/28/2021, Additional history exists MICROALBUMIN 09/01/2022 09/01/2021, 06/01/2017, 01/13/2016 NICOTINE/TOBACCO CESSATION 09/01/2022 09/01/2021, , COUNSELING Q 1 YR 01/13/2021, Additional history exists ANNUAL REVIEW OF HM ORDERS 02/17/2023 02/17/2022 ADVANCE CARE PLANNING 12/10/2025 12/10/2020 (Declined) DTAP/TDAP/TD IMMUNIZATION 03/17/2026 03/17/2016, 07/03/1999 , (4 - Td or Tdap) 07/03/1999, Additional history exists HEPATITIS B IMMUNIZATION Completed 07/03/1999, 12/17/1998, 08/15/1998 IPV IMMUNIZATION Completed 07/03/1999, 12/17/1998, 08/15/1998 MENINGITIS IMMUNIZATION Aged Out 12/02/2001 No longe r eligible based on patient 's age to complete this topic PHQ-2 (once per calendar Completed 02/17/2022, 03/10/2021, year) 12/10/2020, Additional history exists HIV SCREENING Discontinued Insurance Payer Benefit Plan / Subscriber ID Effective Dates Phone Addre ss Type Group BLUE PLUS BLUE PLUS [id number] 2018-Present [phone] [place] [id number] HMO ADVANTAGE [address] [place] [address] Ana Mcgowan A Personal/Family Self 1985 [phone] [address] none ([place]) [place] [address] Ana Mcgowan A Medication Therapy Self 1985 [phone] [id number] none ([place] [address] Ana Mcgowan A Worker's Self 1985 [phone] [address] none [place] [address] Advance Directives For more information, please contact: [phone] Latest Code Status on File Code Status Date Activated Date Inactivated Comments Full Code 02/01/2015 9:38 AM 03/11/2019 3:00 AM Code Status History Code Status Date Activated Date Inactivated Comments Full Code 01/31/2015 6:45 PM 02/01/2015 9:38 AM Full Code 10/15/2014 9:34 AM 01/31/2015 6:45 PM Full Code 10/14/2014 4:50 PM 10/15/2014 9:34 AM Care Teams Ball Rolling Machine Operator Relationship Specialty Start Date End Date Gilberto Weathers, PCP - General Internal Medicine 01/13/16 [address] [place], [place] [address] Finn Harris MD Endocrinology, 12/23/20 MD [place] Diabetes, and Metabolism Wanda Bautista MD Ophthalmology 12/31/[address] [place] [address] Gilberto Weathers, Assigned PCP 01/05/21 [address] [place], [place] [address] Finn Harris Assigned Endocrinology 02/09/21 MD [place] Provider NO INFO AVAILABLE Wanda Bautista, Assigned Surgical 02/02/21 MD Provider [address] [place] [address] Mariah Mcmanus, Assigned [place] Pharmacist 02/18/[address] [facility] [address] [facility] [address] [place] [address] Ky Marcos MD Physician Endocrinology, 02/20/22 [address] [place] Diabetes, [place] [address]
--- OUTSIDE RECORDS SUMMARY | 2022-03-05 03:55 | XMS_ITS | Encounter Summary ---
:1985 Author Organization [place] Address [address] [facility] [place] [address] Care Team Providers Name Role Phone Gilberto Weathers MD Primary Care Provider Finn Harris MD Unavailable Unavailable Wanda Bautista MD Unavailable Gilberto Weathers MD Unavailable Finn Harris MD Unavailable Unavailable Wanda Bautista MD Unavailable Reason for Visit Reason Comments Urgent Care cough, sinus congestion, run ny nose, sore throat and fatigue X 2 days. Encounter Details Date Type Department Care Team Description 06/10/2021 Office Visit [facility] Em Woodruff Fatigue, unspecified type (Primary Dx); Urgent Care Michael English MD Sore throat; [address] [place], [place] [id number] [phone] Social History Tobacco Use Types Packs/Day Years [...] with No / Unsure 06/10/2021 2:48 PM [facility] someone who was confirmed or suspected to have Coronavirus / COVID-19? documented as of this encounter Last Filed Vital Signs Vital Sign Reading Time Taken Comments Blood Pressure 98/60 06/10/2021 3:06 PM [facility] Pulse 86 06/10/2021 3:06 PM [facility] Temperature 36.8 ??C (98.2 ??F) 06/10/2021 3:06 PM [facility] Respiratory Rate 12 06/10/2021 3:06 PM [facility] Oxygen Saturation 98% 06/10/2021 3:06 PM [facility] Inhaled Oxygen Concentration - - Weight 88.5 kg (195 lb) 06/10/2021 3:06 PM [facility] Height - - Body Mass Index 28.8 12/30/2020 1:38 PM CDT documented in this encounter Progress Notes Em Cameron MD - 06/10/2021 2:50 PM CST Ana was seen today for urgent care. Diagnoses and all orders for this visit: Fatigue - Influenza A & B Antigen Sore throat - Streptococcus A Rapid Screen w/Reflex to PCR - Group A Streptococcus PCR Throat Swab Cough - Symptomatic; Unknown COVID-19 Virus (Coronavirus) by PCR Nose Rapid Strep testing is negative, so no antibiotics are indicated at this time. Negative Influenza, so no Tamiflu is indicated. Will f/u COVID swab result by phone. Continue self-isolation in the meantime. Supportive care recommended. The patient has no signs of dehydration, respiratory distress, acuteabdomen or hypoxia on exam today. Use Tylenol and/or ibuprofen as needed for pain or fevers. Push fluids and rest and follow-up as needed for any persistent or worsening symptoms. Parents have no otherconcerns at this time. The patient and parent(s) are encouraged to call the clinic or the 24-hour nurse hotline with any questions or concerns. Abran Perez is a 36 year old who presents for the following health issues Chief Complaint Patient presents with ??? Urgent Care cough, sinus congestion, runny nose, sore throat and fatigue X 2 days. HPI Tired, achy, sore throat and runny nose since last night. Brethren feverish last night, no temp measured. Tylenol helped with pains and fever and headache. Eating and drinking fine. No vomiting. He did have COVID one month ago. He does want another COVID test today, and we discussed the possibility of positive result up to three months after his initial COVID diagnosis. Review of Systems Remainder of 10-system review is normal other than as noted above. PMH: No asthma Type II DM on insulin and metformin Current Outpatient Medications Medication Instructions ??? alcohol swab prep pads Use to swab area of injection/mendez as directed. ??? atorvastatin (LIPITOR) 20 mg, Oral, DAILY ??? blood glucose (HOMERO MICROLET 2) lancing device Lancing device to be used with lancets. ??? blood glucose ([employer] NEXT TEST) test strip TEST blood sugar ONCE DAILY ??? blood glucose monitoring ([employer] MICROLET) lancets Use to test blood sugar One times daily. ??? blood glucose monitoring ([employer] NEXT MONITOR W/DEVICE KIT) meter device kit To check Blood Glucose one time daily ??? Continuous Blood Gluc Sales Merchandiser (ExplorraSTYLE JONI 2 READER) BERT 1 each, Does not apply, DAILY ??? Continuous Blood Gluc Sensor (FREESTYLE JONI 2 SENSOR) MISC 1 each, Does not apply, EVERY 14 DAYS ??? fluticasone (FLONASE) 50 MCG/ACT nasal spray 1-2 sprays, Both Nostrils, DAILY ??? glucose (BD GLUCOSE) 4 g chewable tablet 3 tablets, Oral, DAILY PRN ??? ibuprofen (ADVIL/MOTRIN) 600 mg, Oral, EVERY 6 HOURS PRN ??? insulin glargine (LANTUS PEN) 20 Units, Subcutaneous, AT BEDTIME ??? insulin pen needle (BD AUTOSHIELD DUO) 30G X 5 MM Use 1-4 pen needles daily or as directed. ??? metFORMIN (GLUCOPHAGE) 1000 MG tablet TAKE 1 TABLET(1000 MG) BY MOUTH TWICE DAILY WITH MEALS ??? omeprazole (PRILOSEC) 20 mg, Oral, DAILY ??? polyethylene glycol (MIRALAX) 17 g, DAILY PRN Objective BP 98/60 (BP Location: Left arm, Patient Position: Sitting, Cuff Size: Adult Large) Pulse 86 Temp 98.2 ??F (36.8 ??C) (Tympanic) Resp 12 Wt 88.5 kg (195 lb) SpO2 98% BMI 28.80 kg/m?? Body mass index is 28.8 kg/m??. Physical Exam GENERAL: Active, alert, in no acute distress. SKIN: Clear. No significant rash, abnormal pigmentation or lesions HEAD: Normocephalic. No facial swelling, pain or masses. EYES: No discharge or erythema. Normal pupils and EOM. Good tear film. EARS: Normal canals. Tympanic membranes are normal; shaffer and translucent. NOSE: Normal without discharge. MOUTH: Oropharynx is diffusely erythematous without tonsillar enlargement or exudate. Membranes are moist. Teeth intact. NECK: Supple, no masses. Normal observed movements. No stiffness or pain to palpation. LYMPH NODES: No cervical or occipital adenopathy LUNGS: Clear. No rales, rhonchi, wheezing or retractions HEART: Regular rhythm. Normal S1/S2. No murmurs. Capillary refill is brisk. ABDOMEN: Soft, non-tender, not distended, no masses or hepatosplenomegaly. Bowel sounds normal. No guarding or rebound tenderness. NEURO: Normal tone. No abnormal movements. Face grossly symmetrical. Recent Results (from the past 24 hour(s)) Influenza A & B Antigen Collection Time: 06/10/21 3:09 PM Specimen: Nasopharyngeal; Swab Result Value Ref Range Influenza A antigen Negative Negative Influenza B antigen Negative Negative Streptococcus A Rapid Screen w/Reflex to PCR Collection Time: 06/10/21 3:09 PM Specimen: Throat; Swab Result Value Ref Range Group A Strep antigen Negative Negative Em Cameron MD TMAN documented in this encounter Plan of Treatment Upcoming Encounters Date Type Specialty Care Team Description 06/16/2022 Virtual Visit Endocrinology Gilberto Weathers MD [address] [place] [id number] Ky Marcos MD [address] [place] [address] documented as of this encounter Procedures Procedure Name Priority Date/Time Associated Comments Diagnosis COVID-19 VIRUS STAT 06/10/2021 3:09 PM Cough Results for this (CORONAVIRUS) BY PCR [facility] procedu re are in the results section. STREPTOCOCCUS A RAPID STAT 06/10/2021 3:09 PM Sore throat Results for this SCREEN W REFELX TO PCR [facility] proce dure are in the results section. GROUP A STREPTOCOCCUS STAT 06/10/2021 3:09 PM Sore throat Results for this PCR THROAT SWAB [facility] procedure ar e in the results section. INFLUENZA A/B ANTIGEN Routine 06/10/2021 3:09 PM Fatigue, Results for this [facility] unspecified type procedure a re in the results section. documented in this encounter Results Group A Streptococcus PCR Throat Swab (06/10/2021 3:09 PM [facility]) [facility] Method Time Signature Group A strep Not Detected Not Detected 06/10/2021 [facility] by PCR 9:45 PM [facility] Specimen Anatomical Collection Method Collection Time Receive d Time (Source) Location / / Volume Laterality Swab STRUCTURE OF Non-blood 06/10/2021 3:09 PM 2 3:25 ANTERIOR PORTION Collection / [facility] PM [facility] OF NECK / Unknown Unknown Narrative [facility] - 06/10/2021 9:[address] The Xpert Xpress Strep A test, performed on the motify?? [employer], is a rapid, qualitative in vitro [...] reaction (PCR) to detect Streptococcus pyogenes DNA. Carlo Cortez DO LAB - MICRO GENERAL ORDERABL ES Performing Organization Address City/State/ZIP Code Phon e Number [facility] [place] [phone] Lab [address] [facility] [facility], [address] [facility] Infectious [place], [place] [phone] Diseases Diagnostic [phone], [facility] Lab (IDDL) [address] [facility], [address] Streptococcus A Rapid Screen w/Reflex to PCR (06/10/2021 3:09 PM [facility]) Analysis Performed At Patho logist Time [facility] Group A Strep Negative Negative SUSANA 06/10/2021 [facility] antigen 3:26 PM [facility] Specimen Anatomical Collection Method Collection Time Receive d Time (Source) Location / / Volume Laterality Swab STRUCTURE OF Non-blood 06/10/2021 3:09 PM 3:14 ANTERIOR PORTION Collection / [facility] PM [facility] OF NECK / Unknown Unknown Carlo Fletcher Diego SANTANA LAB - MICRO GENERAL ORDERABL ES Performing Organization Address City/State/ZIP Code Phon e Number [facility] [place], [place] [phone] [place] [facility] [phone] [place] [address] Lab (no room number, 1st floor of clinic) [facility] [place], [place] [phone] [place] [id number] [address] Lab (no room number, 1st floor of clinic) Influenza A & B Antigen (06/10/2021 3:09 PM [facility]) Analysis Performed At [facility] Influenza A Negative Negative 06/10/2021 [facility] antigen 3:38 PM [facility] Influenza B Negative Negative 06/10/2021 [facility] antigen 3:38 PM [facility] Specimen Anatomical Location / Collection Method Collection Bhargav e Received Time (Source) Laterality / Volume Swab NASOPHARYNGEAL Non-blood 06/10/2021 3:09 06/10/2021 3:14 STRUCTURE / Unknown Collection / PM [facility] PM [facility] Unknown Narrative [facility] - 06/10/2021 3:38 PM [facility] Test results must be correlated with cli nical data. If necessary, results should be confirmed by a molecular assay or viral culture. Carlo Cortez LAB - MICRO GENERAL ORDERABL ES Performing Organization Address City/State/ZIP Code Phon e Number [facility] Clinic - [place], [place] [phone] [place] [facility] [phone] Lab (no room number, 1st floor of clinic) [facility] [place], [place] [phone] Clinic - [place] [phone], [facility] [facility] [address] Lab (no room number, 1st floor of clinic) Symptomatic; Unknown COVID-19 Virus (Coronavirus) by PCR Nose (06/10/2021 3:09 PM [facility]) [facility] Method Time Signature SARS CoV2 PCR Negative Negative, 06/10/2021 [facility] Testing sent to 6:57 PM [facility] reference lab. Results will be returned via unsolicited result Comment: NEGATIVE: SARS-CoV-2 (COVID-19) RNA not detected, presumed negative. Specimen Anatomical Collection Method Collection Time Receive d Time (Source) Location / / Volume Laterality Swab NASAL STRUCTURE / Non-blood 06/10/2021 3:09 PM 05/24 3:33 Unknown Collection / [facility] PM [facility] Unknown Narrative [facility] - 06/10/2021 6:[address] Testing was performed using the Xpert Xpress SARS-CoV-2 Assay on the [employer] Systems. A dditional information about this Emergency Use Authorization (EUA) a ssay can be found via the Lab Guide. This test should be ordered for t he detection of SARS-CoV-2 in individuals who meet SARS-CoV-2 clinical and/or epidemiological criteria. Test performance is unknown in asymptomatic patients. This test is for in vitro diagnostic use unde r the FDA EUA for laboratories certified under CLIA to per form high complexity testing. This test has not been FDA cleared or ap proved. A negative result does not rule out the presence of PCR in hibitors in the specimen or target RNA in concentration below the li radha of detection for the assay. The possibility of a false negati ve should be considered if the patient's recent exposure or clinica l presentation suggests COVID-19. This test was validated by the [facility] Infect[facility]. This lab oratory is certified under the Clinical Laboratory Improvement Amen dments of 1987 (CLIA-88) as qualified to perform high complexity lab oratory testing. Carlo Fletcher Diego SANTANA LAB - MICRO GENERAL ORDERABL ES Performing Organization Address City/State/ZIP Code Phon e Number [facility] [place] [phone]. Lab [address] [facility], [address] [facility] Infectious [place], [place] [phone] Diseases Diagnostic [phone], [facility] Lab (IDDL) [address] [facility], [address] documented in this encounter Visit Diagnoses Diagnosis Fatigue, unspecified type - Primary Sore throat Acute pharyngitis Cough documented in this encounter Care Teams State Pilot Relationship Specialty Start Date End Date Gilberto Weathers, PCP - General Internal Medicine 01/13/16 MD [place], [place] [phone] iFnn Harris MD Endocrinology, 12/23/20 MD [place] Diabetes, and Metabolism Wanda Bautista MD Ophthalmology 12/31/[address] [place] [address] [phone] Gilberto Weathers, Assigned PCP 01/05/21 MD [place], [place] [phone] Finn Harris Assigned Endocrinology 02/09/21 MD [place] Provider NO INFO AVAILABLE Wanda Bautista, Assigned Surgical 02/02/21 MD Provider [address] [place] [address] [phone] documented as of this encounter
--- OUTSIDE RECORDS SUMMARY | 2022-03-05 03:55 | XMS_ITS | Encounter Summary ---
:1985 Author Organization [place] Address [address] [facility] [place] [address] Care Team Providers Name Role Phone Gilberto Weathers MD Primary Care Provider Finn Harris MD Unavailable Unavailable Wanda Bautista MD Unavailable Gilberto Weathers MD Unavailable Finn Harris MD Unavailable Unavailable Wanda Bautista MD Unavailable Reason for Visit Reason Comments Medication Therapy Management Encounter Details Date Type Department Care Team Description 09/01/2021 Office Visit [facility] Mariah Mcmanus, Type 1 diabetes mellitus with other specified complication (H) (Primary Dx); [facility] Hyperlipidemia LDL goal <100; [address] Slow tr ansit constipation; [facility] [address] Flatulence, eructation and gas pain [address] [place], [place] [phone] Social History Tobacco Use Types Packs/Day Years [...] Exposure Response Date Recorded In the last 10 days, have you been in contact with No / Unsu re 09/01/2021 9:00 AM CDT someone who was confirmed or suspected to have Coronavirus/COVID-19? documented as of this encounter Last Filed Vital Signs Vital Sign Reading Time Taken Comments Blood Pressure 106/62 09/01/2021 9:55 AM CDT Pulse - - Temperature - - Respiratory Rate - - Oxygen Saturation - - Inhaled Oxygen Concentration - - Weight 91.5 kg (201 lb 11.2 oz) 09/01/2021 9:55 AM CDT Height - - Body Mass Index 29.79 12/30/2020 1:38 PM CDT documented in this encounter Patient Instructions Patient InstructionsWeVicky rene, [facility] - 09/01/2021 9:48 AM CDT Recommendations from today's MTM visit: 1. Start Miralax daily to help with constipation. 2. You can take simethicone (Gas-X) as needed for gas symptoms. 3. Stop metformin. 4. Start Novolog 8 units with the largest meal of the day. 5. Complete your labs downstairs today. 6. Make a follow up appointment with Dr. Weathers. Follow-up: Return in about 5 weeks (around 10/06/2021) for MTM Pharmacist Visit. It was great to speak with you today. I value your experience and would be very thankful for your time with providing feedback on our clinic survey. You may receive a survey via email or text message in the next few days. To schedule another MTM appointment, please call the clinic directly or you may call the MTM scheduling line at [phone] or toll-free at . My Clinical Pharmacist's contact information: Please feel free to contact me with any questions or concerns you have. Vicky Antoine, NayeD Medication Therapy Management Resident Pager: [phone] Mariah Mcmanus , Pharm D [phone] (phone) Medication Therapy Management Pharmacist documented in this encounter Progress Notes Mariah Mcmanus [facility] - 09/01/2021 8:30 AM CDT Images from the original note were not included. Medication Therapy Management (MTM) Encounter ASSESSMENT: Medication Adherence/Access: No issues identified Type 1 Diabetes: Patient is not meeting A1c goal of < 7%. Self monitoring of blood glucose is notat goal of time in target >70%. Patient is having significant blood sugar spikes after meals and would benefit from starting prandial insulin to reduce these. Due to hesitancy with self-injections would benefit from starting Novolog 8 units daily 15-30 minutes before the largest meal of the day. Would also benefit from discontinuing metformin due to upset stomach side effects. Could consider adding Novolog three times daily with meals if blood sugars remain elevated and patient is more comfortable with self injection. Hyperlipidemia: Patient is above goal of LDL <70 mg/dL. Due for yearly lipid panel in December. Could consider increasing atorvastatin to 40 mg daily to help lower LDL to goal if still elevated after repeat lab. Constipation/Gas: Patient is still experiencing bothersome constipation despite using as needed medication. Would benefit from starting Miralax daily to help with constipation symptoms. Patient is alsoexperiencing new gas symptoms. Would benefit from starting simethicone as needed to treat these symptoms. PLAN: 1. Start Miralax daily to help with constipation. 2. You can take simethicone (Gas-X) as needed for gas symptoms. 3. Stop metformin. 4. Start Novolog 8 units with the largest meal of the day. 5. Complete your labs downstairs today. 6. Make a follow up appointment with Dr. Weathers and Endocrinology. Future considerations: 1. Increase atorvastatin to 40 mg daily if LDL remains elevated at next lipid panel. Follow-up: Return in about 5 weeks (around 10/06/2021) for MTM Pharmacist Visit. SUBJECTIVE/OBJECTIVE: Ana Mcgowan is a 36 year old male coming in for a follow-up visit. Today's visit is a follow-up MTM visit from 02/11/21. First visit in 2021. Reason for visit: Diabetes follow up Allergies/ADRs: Reviewed in chart Tobacco: He reports that he has been smoking. He has a 2.50 pack-year smoking history. He has never used smokeless tobacco.Tobacco Cessation Action Plan: Information offered: Patient not interested at this time Alcohol: not currently using Medication Adherence/Access: Medication barriers: Patient is nervous about injecting himself with insulin. Shielded insulin needles have been helping with this. The patient fills medications at [facility] [place]: NO, fills medications at [facility] [place]. Patient is participating in adan August 23 through September 21 Type 1 Diabetes: Currently taking Lantus 20-25 units at bedtime and metformin 1000 mg twice daily. Patient reports having very upset stomach at mealtimes. No nausea or diarrhea. Reports he is getting headaches frequently and noticing these more when he has high blood sugars after meals. Was able to get 'covered' needles which has helped with insulin administration so he doesn't have tosee the needles. Feels this is working well for him. Was seen by Endocrinology. Blood sugar monitoring: CGM Symptoms of low blood sugar? Feels fatigued/out of energy when blood sugar is around 100. Notices more weakness when his Madina shows his sugars dropping. Symptoms of high blood sugar? Feels hungry/thirsty all time, has noticed he is not going to the bathroom as often now that he is taking Lantus Eye exam: Up to date Foot exam: Due Diet/Exercise: watching carbohydrates - needs to reschedule with certified massage therapist Aspirin: Not taking due to age Statin: Taking atorvastatin ACEi/ARB: No. Urine Albumin: Lab Results Component Value Date UMALCR 5.50 06/01/2017 Lab Results Component Value Date A1C 10.5 09/01/2021 A1C 12.7 12/10/2020 A1C 12.2 11/04/2018 A1C 7.4 09/03/2017 A1C 11.9 06/01/2017 A1C 10.4 12/10/2016 A1C 6.6 03/17/2016 Hyperlipidemia: Current therapy includes atorvastatin 20 mg daily. No concerns with side effects. Recent Labs Lab Test 12/30/20 1402 11/04/18 1451 01/13/16 0752 10/15/14 0520 CHOL 195 213* < > 165 HDL 51 40 < > 34* LDL 126* 143* < > 96 TRIG 88 148 < > 175* CHOLHDLRATIO -- -- -- 4.9 < > = values in this interval not displayed. Constipation/Gas: Currently taking Dulcolax as needed. Feels this helps him have a bowel movement but then he has constipation issues again. Has Miralax on hand at home but has not taken it recently. Reports he is noticing gas and constipation symptoms more frequently now and is wondering if there is anything he can take for the gas. States he is interested in a colon cleanse. Today's Vitals: BP 106/62 Wt 201 lb 11.2 oz (91.5 kg) BMI 29.79 kg/m?? I spent 50 minutes with this patient today. All changes were made via collaborative practice agreement with Gilberto Weathers MD. A copy of the visit note was provided to the patient's provider(s). The patient was given a summary of these recommendations. Naye SchmittD Medication Therapy Management Resident Pager: [phone] Naye Ramirez D [phone] (phone) Medication Therapy Management Pharmacist Medication Therapy Recommendations Flatulence, eructation and gas pain Rationale: Untreated condition - Needs additional medication therapy - Indication Recommendation: Start Medication - simethicone 125 MG chewable tablet Status: Accepted - no CPA Needed Hyperlipidemia LDL goal <100 Rationale: Untreated condition - Needs additional medication therapy - Indication Recommendation: Start Medication - Start atorvastatin 20 mg daily Status: Accepted per Provider Slow transit constipation Current Medication: polyethylene glycol (MIRALAX) 17 GM/Dose powder Rationale: Does not understand instructions - Adherence - Adherence Recommendation: Provide Education Status: Patient Agreed - Adherence/Education Type 1 diabetes mellitus with other specified complication (H) Current Medication: insulin glargine (LANTUS PEN) 100 UNIT/ML pen Rationale: Synergistic therapy - Needs additional medication therapy - Indication Recommendation: Start Medication - NovoLOG FLEXPEN 100 UNIT/ML soln - 8 units with largest meal of the day Status: Accepted per CPA Current Medication: metFORMIN (GLUCOPHAGE) 1000 MG tablet (Discontinued) Rationale: Undesirable effect - Adverse medication event - Safety Recommendation: Discontinue Medication Status: Accepted per CPA documented in this encounter Plan of Treatment Upcoming Encounters Date Type Specialty Care Team Description 06/16/2022 Virtual Visit Endocrinology Gilberto Weathers MD [address] [place] [address] Ky Marcos MD [address] [place], [place] [phone] documented as of this encounter Results Albumin Random Urine Quantitative with Creat Ratio (09/01/2021 10:14 AM CDT) P athologist Signature Creatinine 154 mg/dL 09/02/2021 [facility] Urine mg/dL 12:05 PM CDT Albumin Urine <5 mg/L 09/02/2021 [facility] mg/L 12:05 PM CDT Albumin Urine 09/02/2021 [facility] mg/g Cr 12:05 PM CDT Comment: Unable to calculate: ??Urine cr eatinine or albumin value below detectable level Specimen Anatomical Collection Method Collection Time Receive d Time (Source) Location / / Volume Laterality Urine MID-STREAM URINE Non-blood 09/01/2021 10:14 022 SPECIMEN / Unknown Collection / AM CDT 10:14 AM CDT Unknown Gilberto Weathers MD LAB - URINE ORDERABLES Performing Organization Address City/State/ZIP Code Phon e Number [facility] [place], [place] [phone] [facility] [phone] Lab (no room number, 1st floor of clinic) [facility] [place], [place] [phone] [facility] [phone] [address] Lab (no room number, 1st floor of clinic) (ABNORMAL) Hemoglobin A1c (09/01/2021 10:11 AM CDT) Patholo gist Method Time Signature Hemoglobin A1C 10.5 (H) 0.0 - 5.6 09/01/2021 [facility] % 10:25 AM CDT Comment: Reviewed, ok with previous. Normal <5.7% Prediabetes 5.7-6.4% ?? Diabetes 6.5% or higher Note: Adopted from ADA consensus guideli aamir. Specimen Anatomical Collection Method / Collection Time Recei lety Time (Source) Location / Volume Laterality Blood VENOUS BLOOD / Venipuncture / 09/01/2021 10:11 022 Unknown Unknown AM CDT 10:11 AM CDT Gilberto Weathers MD LAB - BLOOD ORDERABLES Performing Organization Address City/State/ZIP Code Phon [place] [address] [facility] [address] [place], [address] [place] [address], [facility] [address] [place] [facility], [address] documented in this encounter Visit Diagnoses Diagnosis Type 1 diabetes mellitus with other spec ified complication (H) - Primary Hyperlipidemia LDL goal <100 Other and unspecified hyperlipidemia Slow transit constipation Flatulence, eructation and gas pain Flatulence, eructation, and gas pain documented in this encounter Care Teams Stone Layout Marker Relationship Specialty Start Date End Date Gilberto Weathers, PCP - General Internal Medicine 01/13/16 [address] [place], [place] [phone] Finn Harris MD Endocrinology, 12/23/20 [facility] [place] [facility] Met[facility] Wanda Bautista MD Ophthalmology 12/31/[address] [place] [address] Gilberto Weathers, Assigned PCP 01/05/21 [address] [place] [address] Finn Harris Assigned Endocrinology 02/09/21 MD [place] Provider NO INFO AVAILABLE Wanda Bautista, Assigned Surgical 02/02/[address] [place] [address] documented as of this encounter
--- OUTSIDE RECORDS SUMMARY | 2022-03-05 03:55 | XMS_ITS | Encounter Summary ---
:1985 Author Organization [place] Address [address] [place] [address] Care Team Providers Name Role Phone Gilberto Weathers MD Primary Care Provider Finn Harris MD Unavailable Unavailable Wanda Bautista MD Unavailable Gilberto Weathers MD Unavailable Finn Harris MD Unavailable Unavailable Wanda Bautista MD Unavailable Sarah Castañeda [facility] Unavailable Mariah Mcmanus [facility] Unavailable Ky Marcos MD Unavailable Reason for Referral Consultation (Routine: Next available opening) - Referral NOT Required Specialty Diagnoses / Referred By Contact Referred To Contact Procedures Endocrinology, Diagnoses Type 2 diabetes mellitus with hyperglycemia, with long-term current use of insulin (H) Gilberto Weathers, [facility], and [facility] Met[facility] [address] [phone] Referral ID Status Reason Start Date Expiration Date Visits V isits Requested Authorized [id number] Referral NOT 02/23/2022 02/23/2023 1 1 Required Reason for Visit Reason Onset Date Comments Referral 02/19/2022 Encounter Details Date Type Department Care Team Description 02/19/2022 Telephone [facility] Gilberto Weathers MD Referral [place] [address] [facility] [address] [place] [address] [place] [address] [phone] Social History Tobacco Use Types Packs/Day Years [...] encounter Miscellaneous Notes Telephone Encounter - Mervat Miranda RN - 02/23/2022 11:09 AM CDT Call to pt and scheduled. Telephone Encounter - Gilberto Weathers MD - 02/23/2022 10:40 AM CDT Ordered lab work Telephone Encounter - Mervat Miranda RN - 02/23/2022 9:46 AM CDT Call to pt and advised regarding referral. He agrees. Pt is asking about his lab work and if can do this now. He is due for fasting labs. Please advise. Also due for A1C Recent Labs Lab Test 12/30/20 1402 11/04/18 1451 01/13/16 0752 10/15/14 0520 CHOL 195 213* < > 165 HDL 51 40 < > 34* LDL 126* 143* < > 96 TRIG 88 148 < > 175* CHOLHDLRATIO -- -- -- 4.9 < > = values in this interval not displayed. Telephone Encounter - Gilberto Weathers MD - 02/23/2022 9:20 AM CDT Please send the info to patient. Telephone Encounter - Aria Becker - 02/23/2022 6:52 AM CDT Patient can go to the Endocrinology clinic of [facility] in [place]. The # is [phone]. This clinic is on our [place] [address]. Aria Harvey-clinical research coordinator Telephone Encounter - Mervat Miranda RN - 02/20/2022 3:11 PM CDT Will route to Referrals for recommendations for Endocrinology. May be able to use Endo clinic of [facility] in [place]? Telephone Encounter - Gilberto Weathers MD - 02/19/2022 3:54 PM CDT Recommend to see me in one month. For endocrinology let's check with referrals if he can see different provider. Telephone Encounter - Destiny Kay - 02/19/2022 12:52 PM CDT Patient is calling to ask if he can get a different referral for endocrinolgy because he cannot get in until next year some time. He wants to get an insulin pump as soon as possible. He also says he was told to see Dr Weathers in the clinic as soon as possible. Dr Weathers's note fromthe virtual visit says return around 05/19/22. Please clarify. documented in this encounter Plan of Treatment Upcoming Encounters Date Type Specialty Care Team Description 06/16/2022 Virtual Visit Endocrinology Gilberto Weathers MD [address] [place] [address] Ky Marcos MD [address] [place], [place] [phone] Scheduled Orders Name Type Priority Associated Diagnoses Order S chedule Hemoglobin A1c Lab Routine Type 2 diabetes Expected: 02/23/2022 mellitus with (Approximate), hyperglycemia, with Expires: 02/23/2023 long-term current use of insulin (H) Lipid panel reflex to Lab Routine Type 2 diabetes Exp ected: 02/23/2022 direct LDL Fasting mellitus with (Approxi mate), hyperglycemia, with Expires: 02/23/2023 long-term current use of insulin (H) Comprehensive metabolic Lab Routine Type 2 diabetes E xpected: 02/23/2022 panel (BMP + Alb, Alk Phos, mellitus with (Approximate), ALT, AST, Total. Bili, TP) hyperglycemia, with Expires: 02/23/2023 long-term current use of insulin (H) Scheduled Referrals Name Type Priority Associated Order Schedule Diagnoses Adult Endocrinology Referral Routine: Next Type 2 diabetes Expe cted: Geology Associate Referral available opening mellitus with 07/2021 hyperglycemia, with (Approxi mate), long-term current Expires: use of insulin (H) 3 documented as of this encounter Visit Diagnoses Diagnosis Type 2 diabetes mellitus with hyperglyce roula, with long-term current use of insulin (H) - Primary documented in this encounter Care Teams Tourist Cabin Keeper Relationship Specialty Start Date End Date Gilberto Weathers, PCP - General Internal Medicine 01/13/16 [place] [address] Finn Harris MD Endocrinology, 12/23/20 [facility] [place] [facility] Metabolism Wanda Bautista, Ophthalmology 12/31/[address] [place] [id number] Gilberto Weathers, Assigned PCP 01/05/21 [place] [address] Finn Harris Assigned Endocrinology 02/09/21 MD [place] Provider NO INFO AVAILABLE Wanda Bautista, Assigned Surgical 02/02/21 MD Provider [address] [place] [phone] Sarah Castañeda, Pharmacist 02/03/22 02/23/22 [facility] [address] [place] [address] [place] [address] Mariah Mcmanus, Assigned [facility] Pharmacist 02/18/22 [facility] [address] [facility] [address] [place], [place] [phone] Ky Marcos MD Physician Endocrinology, 02/20/22 [address] [place] [facility], and [address] Metabolism [place], [place] [phone] documented as of this encounter
--- OUTSIDE RECORDS SUMMARY | 2022-03-05 03:55 | XMS_ITS | Encounter Summary ---
:1985 Author Organization [place] Address [address] [facility] [place] [address] Care Team Providers Name Role Phone Gilberto Weathers MD Primary Care Provider Finn Harris MD Unavailable Unavailable Wanda Bautista MD Unavailable Gilberto Weathers MD Unavailable Finn Harris MD Unavailable Unavailable Wanda Bautista MD Unavailable Mariah Mcmanus [facility] Unavailable Reason for Visit Reason Onset Date Comments Refill Request 12/02/2021 Encounter Details Date Type Department Care Team Description 12/02/2021 Refill [facility] Gilberto Weathers MD Refill Request [place] [address] [facility] [address] [place] [address] [place] [address] [phone] Social History Tobacco Use Types Packs/Day Years [...] this encounter Miscellaneous Notes Telephone Encounter - Celina Pedro RN - 12/03/2021 4:21 PM CDT Pending Prescriptions: Disp Refills Continuous Blood Gluc Ventilation Equipment Tender (FREESTYLE *1 each 0 Si each daily Routing refill request to provider for review/approval because: Drug not on the [facility] refill protocol Please advise, thanks. Telephone Encounter - Maribel Lane - 12/02/2021 1:35 PM CDT Patient's bookmobile librarian is no longer working and their phone is not compatible. documented in this encounter Plan of Treatment Upcoming Encounters Date Type Specialty Care Team Description 06/16/2022 Virtual Visit Endocrinology Gilberto Weathers MD [address] [place] [address] Ky Marcos MD [address] [place] [address] documented as of this encounter Visit Diagnoses Diagnosis Type 1 diabetes mellitus without complic ation (H) Type I (juvenile type) diabetes mellitus without mention of complication, not stated as uncontrolled documented in this encounter Care Teams Infrastructure Project Manager Relationship Specialty Start Date End Date Gilberto Weathers, PCP - General Internal Medicine 01/13/16 [address] [place] [address] Finn Harris MD Endocrinology, 12/23/20 [facility] [place] [facility], and Metabolism Wanda Bautista, Ophthalmology 12/31/20 MD [address] [place] [address] Gilberto Weathers, Assigned PCP 01/05/21 [place] [address] Finn Harris Assigned Endocrinology 02/09/21 MD [place] Provider NO INFO AVAILABLE Wanda Bautista, Assigned Surgical 02/02/21 Provider [address] [place] [address] Mariah Mcmanus, Assigned MTM Pharmacist 10/18/21 02/06/22 RP [address] [facility] [address] [place] [address] documented as of this encounter
--- OUTSIDE RECORDS SUMMARY | 2022-03-05 03:55 | XMS_ITS | Encounter Summary ---
:1985 Author Organization [place] Address [address] [facility] [place] [address] Care Team Providers Name Role Phone Gilberto Weathers MD Primary Care Provider Finn Harris MD Unavailable Unavailable Wanda Bautista MD Unavailable Gilberto Weathers MD Unavailable Finn Harris MD Unavailable Unavailable Wanda Bautista MD Unavailable Sarah Castañeda [facility] Unavailable Mariah Mcmanus [facility] Unavailable Reason for Visit Reason Onset Date Comments Medication Question 02/18/2022 Encounter Details Date Type Department Care Team Description 02/18/[address] [facility] Gilberto Weathers, Med ication Question [facility] [address] [place] [address] [place], [place] [phone] (Wo rk) [address] [phone] Social History Tobacco Use Types Packs/Day Years [...] Telephone Encounter - Mervat Miranda RN - 02/18/2022 1:52 PM CDT Please put MAX Daily amount in Rx. Telephone Encounter - Amy Olson - 02/18/2022 1:10 PM CDT [facility] needing max amount per day of the insulin aspart (NOVOLOG PEN) 100 UNIT/ML pen Ok to call [phone] documented in this encounter Plan of Treatment Upcoming Encounters Date Type Specialty Care Team Description 06/16/2022 Virtual Visit Endocrinology Gilberto Weathers MD [address] [place] [address] Ky Marcos MD [address] [place], [place] [phone] documented as of this encounter Visit Diagnoses Diagnosis Type 2 diabetes mellitus with hyperglyce roula, with long-term current use of insulin (H) documented in this encounter Care Teams Rail Grinder Relationship Specialty Start Date End Date Gilberto Weathers, PCP - General Internal Medicine 01/13/16 [address] [place], [place] [phone] Finn Harris MD Endocrinology, 12/23/20 MD [place] [facility], and Metabolism Wanda Bautista, Ophthalmology 12/31/20 [address] [place] [address] Gilberto Weathers, Assigned PCP 01/05/21 [address] [place], [place] [address] Finn Harris Assigned Endocrinology 02/09/21 MD [place] Provider NO INFO AVAILABLE Wanda Bautista, Assigned Surgical 02/02/21 MD Provider [address] [place] [address] Sarah Castañeda, Pharmacist 02/03/22 02/23/22 [facility] [address] [facility] [place] [place] [id number] Mariah Mcmanus, Assigned MTM Pharmacist 02/18/22 [facility] [address] [facility] [address] [place], [place] [phone] documented as of this encounter
--- OUTSIDE RECORDS SUMMARY | 2022-03-05 03:55 | XMS_ITS | Encounter Summary ---
:1985 Author Organization [place] Address Formerly [facility], [facility] [place] [address] Care Team Providers Name Role Phone Gilberto Weathers MD Primary Care Provider Finn Harris MD Unavailable Unavailable Wanda Bautista MD Unavailable Gilberto Weathers MD Unavailable Finn Harris MD Unavailable Unavailable Wanda Bautista MD Unavailable Encounter Details Date Type Department Care Team Description 09/01/2021 Travel Social History Tobacco Use Types Packs/Day [...] have Coronavirus/COVID-19? documented as of this encounter Plan of Treatment Upcoming Encounters Date Type Specialty Care Team Description 06/16/2022 Virtual Visit Endocrinology Gilberto Weathers MD [address] [place] [address] Ky Marcos MD [address] [place], [place] [phone] documented as of this encounter Visit Diagnoses Not on filedocumented in this encounter Care Teams Kosher Dietary Service Manager Relationship Specialty Start Date End Date Gilberto Weathers, PCP - General Internal Medicine 01/13/16 [address] [place] [address] Finn Harris MD Endocrinology, 12/23/20 MD [place] Diabetes, and Metabolism Wanda Bautista MD Ophthalmology 12/31/[address] [place] [address] [phone] Gilberto Weathers, Assigned PCP 01/05/21 [address] [place] [address] Finn Harris Assigned Endocrinology 02/09/21 MD [place] Provider NO INFO AVAILABLE Wanda Bautista, Assigned Surgical 02/02/[address] [place] [address] [phone] documented as of this encounter
--- OUTSIDE RECORDS SUMMARY | 2022-03-05 03:55 | XMS_ITS | Encounter Summary ---
:1985 Author Organization [place] Address [address] [facility] [place] [address] Care Team Providers Name Role Phone Gilberto Weathers MD Primary Care Provider Finn Harris MD Unavailable Unavailable Wanda Bautista MD Unavailable Gilberto Weathers MD Unavailable Finn Harris MD Unavailable Unavailable Wanda Bautista MD Unavailable Mariah Mcmanus [facility] Unavailable Reason for Visit Reason Comments Urgent Care Congestion, sinus infection , and sore throat which started three ago. Encounter Details Date Type Department Care Team Description 10/28/2021 Office Visit [facility] Carlo Cortez Throat corinne n (Primary Dx); Urgent Care Oxrenee Cormierkassandra, DO Nasal congestion [address] [phone] [id number] Social History Tobacco Use Types Packs/Day Years [...] in contact with No / Unsu re 10/28/2021 2:42 PM CDT someone who was confirmed or suspected to have Coronavirus/COVID-19? documented as of this encounter Last Filed Vital Signs Vital Sign Reading Time Taken Comments Blood Pressure 122/81 10/28/2021 2:48 PM CDT Pulse 87 10/28/2021 2:48 PM CDT Temperature 36.8 ??C (98.3 ??F) 10/28/2021 2:48 PM CDT Respiratory Rate - - Oxygen Saturation 98% 10/28/2021 2:48 PM CDT Inhaled Oxygen Concentration - - Weight - - Height - - Body Mass Index - - documented in this encounter Progress Notes Carlo Cortez DO - 10/28/2021 2:45 PM CDT SUBJECTIVE: nAa Mcgowan is a 36 year old male presenting with a chief complaint of nasal congestion, cough and sore throat. Onset of symptoms was 3 day(s) ago. Past Medical History: Diagnosis Date ??? Diabetes mellitus type 2, controlled (H) 2014 No Known Allergies Social History Tobacco Use ??? Smoking status: Current Every Day Smoker Packs/day: 0.50 Years: 5.00 Pack years: 2.50 ??? Smokeless tobacco: Never Used Substance Use Topics ??? Alcohol use: No Alcohol/week: 0.0 standard drinks ROS: SKIN: no rash GI: no vomiting OBJECTIVE: BP 122/81 (BP Location: Right arm, Patient Position: Sitting, Cuff Size: Adult Large) Pulse 87 Temp 98.3 ??F (36.8 ??C) (Tympanic) SpO2 98% GENERAL APPEARANCE: healthy, alert and no distress EYES: EOMI, PERRL, conjunctiva clear HENT: ear canals and TM's normal. Nose and mouth without ulcers, erythema or lesions RESP: lungs clear to auscultation - no rales, rhonchi or wheezes SKIN: no suspicious lesions or rashes ICD-10-CM 1. Throat pain R07.0 Symptomatic; Yes; 10/25/2021 COVID-19 Virus (Coronavirus) by PCR Nose Streptococcus A Rapid Screen w/Reflex to PCR Group A Streptococcus PCR Throat Swab 2. Nasal congestion R09.81 Symptomatic; Yes; 10/25/2021 COVID-19 Virus (Coronavirus) by PCR Nose Streptococcus A Rapid Screen w/Reflex to PCR Group A Streptococcus PCR Throat Swab Fluids/Rest, f/u if worse/not any better documented in this encounter Plan of Treatment Upcoming Encounters Date Type Specialty Care Team Description 06/16/2022 Virtual Visit Endocrinology Gilberto Weathers MD [address] [place] [address] Ky Marcos MD [address] [place] [address] documented as of this encounter Procedures Procedure Name Priority Date/Time Associated Comments Diagnosis COVID-19 VIRUS Routine 10/28/2021 2:48 PM Throat pain Results for this (CORONAVIRUS) BY PCR CDT Nasal congestion pro cedure are in the results section. STREPTOCOCCUS A RAPID Routine 10/28/2021 2:48 PM Throat pain Results for this SCREEN W REFELX TO PCR CDT Nasal congestion p rocedure are in the results section. GROUP A STREPTOCOCCUS Routine 10/28/2021 2:48 PM Throat pain Results for this PCR THROAT SWAB CDT Nasal congestion procedur e are in the results section. documented in this encounter Results Group A Streptococcus PCR Throat Swab (10/28/2021 2:48 PM CDT) [facility] Method Time Signature Group A strep Not Detected Not Detected 10/28/2021 [facility] by PCR 8:18 PM CDT LABORATORY Specimen Anatomical Collection Method Collection Time Receive d Time (Source) Location / / Volume Laterality Swab STRUCTURE OF Non-blood 10/28/2021 2:48 PM 2 3:08 ANTERIOR PORTION Collection / CDT PM CDT OF NECK / Unknown Unknown Narrative [facility] LABORATORY - 10/28/2021 8:18 PM C DT The Xpert Xpress Strep A test, performed on the GeneXGreytip Software?? Instrument Systems, is a rapid, qualitative in [...] Code Phon e Number [facility] LABORATORY [facility] [place] [address] Diag. Lab [address] [facility], [address] Streptococcus A Rapid Screen w/Reflex to PCR (10/28/2021 2:48 PM CDT) Analysis Performed At Patho logist Time Signature Group A Strep Negative Negative 10/28/2021 [facility] LABORATORY antigen 3:08 PM CDT Specimen Anatomical Collection Method Collection Time Receive d Time (Source) Location / / Volume Laterality Swab STRUCTURE OF Non-blood 10/28/2021 2:48 PM 2 3:00 ANTERIOR PORTION Collection / CDT PM CDT OF NECK / Unknown Unknown Carlo Cortez DO LAB - MICRO GENERAL ORDERABL ES Performing Organization Address City/State/ZIP Code Phon e Number OX LABORATORY [place], [place] [phone] [facility] [phone] [place] [address] Lab (no room number, 1st floor of clinic) [facility] [place], [place] [phone] [facility] [phone] [address] Lab (no room number, 1st floor of clinic) Symptomatic; Yes; 10/25/2021 COVID-19 Virus (Coronavirus) by PCR Nose (10/28/2021 2:48 PM CDT) [facility] Method Time Signature SARS CoV2 PCR Negative Negative, 10/29/2021 [facility] Testing sent to 11:41 AM LABORATORY reference lab. CDT Results will be returned via unsolicited result Comment: NEGATIVE: SARS-CoV-2 (COVID-19) RNA not detected, presumed negative. Specimen Anatomical Collection Method Collection Time Receive d Time (Source) Location / / Volume Laterality Swab NASAL STRUCTURE / Non-blood 10/28/2021 2:48 PM 11/2021 3:37 Unknown Collection / CDT PM CDT Unknown Narrative [facility] LAB[facility]ATORY - 10/29/2021 11:41 AM CDT Testing was performed using the leroy SARS-CoV-2 assay on the leroy Communi[employer]lique0 System. This test should be ordered for the detection of SARS-CoV-2 in individuals who meet SARS- CoV-2 clinical and/or epidemiological criteria. Test performan ce is unknown in asymptomatic patients. This test is for in vitro diag nostic use under the FDA EUA for laboratories certified under CLIA to perform high and/or moderate complexity testing. This test has not be en FDA cleared or approved. A negative result does not rule out the pr esence of PCR inhibitors in the specimen or target RNA in concentrat ion below the limit of detection for the assay. The possibility of a false negative should be considered if the patient's recent ex posure or clinical presentation suggests COVID-19. This peg t was validated by the [facility] Infectious Diseases Diag nostic Laboratory. This laboratory is certified under the [facility] Laboratory Improvement Amendments of 1988 (CLIA-88) as qualifie d to perform high and/or moderate complexity laboratory testing. Carlo Cortez DO LAB - MICRO GENERAL ORDERABL ES Performing Organization Address City/State/ZIP Code Phon e Number [facility] LABORATORY [facility] [place] [phone] Diag. Lab [address] [facility], [address]297 documented in this encounter Visit Diagnoses Diagnosis Throat pain - Primary Nasal congestion Other diseases of nasal cavity and sinus es documented in this encounter Additional Health Concerns Infection Onset Date Last Indicated Resolved Time Rule Out COVID-19 10/28/2021 10/28/2021 10/29/2021 11: 41 AM CDT documented as of this encounter Care Teams Blasting Worker Relationship Specialty Start Date End Date Gilberto Weathers, PCP - General Internal Medicine 01/13/16 [address] [place], [place] [address] Finn Harris MD Endocrinology, 12/23/20 MD [place] Diabetes, and Metabolism Wanda Bautista, Ophthalmology 12/31/[address] [place] [address] Gilberto Weathers, Assigned PCP 01/05/21 [address] [place], [place] [address] Finn Harris Assigned Endocrinology 02/09/21 MD [place] Provider NO INFO AVAILABLE Wanda Bautista, Assigned Surgical 02/02/21 MD Provider [address] [place] [address] Mariah Mcmanus, Assigned MTM Pharmacist 10/18/21 02/06/22 [facility] [address] [facility] [address] [place], [place] [phone] documented as of this encounter
--- OUTSIDE RECORDS SUMMARY | 2022-03-05 03:55 | XMS_ITS | Encounter Summary ---
:1985 Author Organization [place] Address [facility] [place] [address] Care Team Providers Name Role Phone Gilberto Weathers MD Primary Care Provider Finn Harris MD Unavailable Unavailable Wanda Bautista MD Unavailable Gilberto Weathers MD Unavailable Finn Harris MD Unavailable Unavailable Wanda Bautista MD Unavailable Mariah Mcmanus [facility] Unavailable Encounter Details Date Type Department Care Team Description 10/28/2021 Travel Social History Tobacco Use Types Packs/Day [...] Visit Endocrinology Gilberto Weathers MD [address] [place], [place] [phone] Ky Marcos MD [address] [place] [address] documented as of this encounter Visit Diagnoses Not on filedocumented in this encounter Additional Health Concerns Infection Onset Date Last Indicated Resolved Time Rule Out COVID-19 10/28/2021 10/28/2021 10/29/2021 11: 41 AM CDT documented as of this encounter Care Teams Foot Worker Relationship Specialty Start Date End Date Gilberto Weathers, PCP - General Internal Medicine 01/13/16 MD [address] [place], [place] [address] Finn Harris MD Endocrinology, 12/23/20 MD [place] Diabetes, and Metabolism Wanda Bautista MD Ophthalmology 12/31/[address] [place] [phone] Gilberto Weathers, Assigned PCP 01/05/21 MD [address] [place], [place] 8[address] Finn Harris Assigned Endocrinology 02/09/21 MD [place] Provider NO INFO AVAILABLE Wanda Bautista, Assigned Surgical 02/02/21 MD Provider [address] [place] [phone] Mariah Mcmanus, Assigned MTM Pharmacist 10/18/21 02/06/22 [facility] [address] [facility] [address] [place] [address] documented as of this encounter
--- OUTSIDE RECORDS SUMMARY | 2022-03-05 03:55 | XMS_ITS | Encounter Summary ---
:1985 Author Organization [place] Address [address] [place] [address] Care Team Providers Name Role Phone Gilberto Weathers MD Primary Care Provider Finn Harris MD Unavailable Unavailable Wanda Bautista MD Unavailable Gilberto Weathers MD Unavailable Finn Harris MD Unavailable Unavailable Wanda Bautista MD Unavailable Encounter Details Date Type Department Care Team Description 09/01/2021 Lab [facility] Typ e 2 diabetes mellitus with [facility] hyperglycemia, with long-ter m [address] current use of insulin (H) [place] [address] Social History Tobacco Use Types Packs/Day [...] Visit Endocrinology Gilberto Weathers MD [address] [place] [address] Ky Marcos MD [address] [place] [address] documented as of this encounter Procedures Procedure Name Priority Date/Time Associated Comments Diagnosis ALBUMIN RANDOM URINE Routine 09/01/2021 10:14 Type 2 diabetes Results for this QUANTITATIVE AM CDT mellitus with procedure are in hyperglycemia, with the [facility] long-term current section. use of insulin (H) HEMOGLOBIN A1C Routine 09/01/2021 10:11 Type 2 diabetes Result s for this AM CDT mellitus with procedure are in hyperglycemia, with the [facility] long-term current section. use of insulin (H) documented in this encounter Results Albumin Random Urine Quantitative [...] LAB - URINE ORDERABLES Performing Organization Address [facility]/ZIP [facility] Phon e Number O[facility] LABORATORY [place], [place] [phone] [facility] [phone] Lab (no room number, 1st floor of clinic) [facility] [place], [place] [phone] [facility] [phone] [address] Lab (no room number, 1st floor of clinic) (ABNORMAL) Hemoglobin A1c (09/01/2021 10:11 AM CDT) [facility] gist Method Time Signature Hemoglobin A1C 10.5 [...] LAB - BLOOD ORDERABLES Performing Organization Address [facility] Ph[place] [address] [phone] [facility] [address] [facility], [address] [place] [address], [facility] Lab [address] [facility], [address] documented in this encounter Visit Diagnoses Diagnosis Type 2 diabetes mellitus with hyperglyce roula, with long-term current use of insulin (H) documented in this encounter Care Teams Food Quality Technician Relationship Specialty Start Date End Date Gilberto Weathers, PCP - General Internal Medicine 01/13/16 [address] [place] [address] Finn Harris MD Endocrinology, 12/23/20 MD [place] Diabetes, and Metabolism Wanda Bautista MD Ophthalmology 12/31/20 MD [address] [place] [address] Gilberto Weathers, Assigned PCP 01/05/21 [place] [address] Finn Harris Assigned Endocrinology 02/09/21 MD [place] Provider NO INFO AVAILABLE Wanda Bautista, Assigned Surgical 02/02/21 Provider [address] [place] [address] documented as of this encounter
--- OUTSIDE RECORDS SUMMARY | 2022-03-05 03:55 | XMS_ITS | Encounter Summary ---
:1985 Author Organization [place] Address [address] [facility] [place] [address] Care Team Providers Name Role Phone Gilberto Weathers MD Primary Care Provider Finn Harris MD Unavailable Unavailable Wanda Bautista MD Unavailable Gilberto Weathers MD Unavailable Finn Harris MD Unavailable Unavailable Wanda Bautista MD Unavailable Mariah Mcmanus [facility] Unavailable Reason for Visit Reason Comments Referral GI Encounter Details Date Type Department Care Team Description 11/27/[address] [facility] Jose Corona No- show for Clinic Ciro Henriquez MD appointment (Primary [address] Dx) [place] [phone] Social History Tobacco Use Types Packs/Day Years [...] have Coronavirus/COVID-19? documented as of this encounter Progress Notes Jose Corona MD - 11/27/2021 10:00 AM CDT No show. documented in this encounter Plan of Treatment Upcoming Encounters Date Type Specialty Care Team Description 06/16/2022 Virtual Visit Endocrinology Gilberto Weathers MD [address] [place] [place], [place] [address] Ky Marcos MD [address] [place] [address] documented as of this encounter Visit Diagnoses Diagnosis No-show for appointment - Primary documented in this encounter Care Teams Egg Caser Relationship Specialty Start Date End Date Gilberto Weathers, PCP - General Internal Medicine 01/13/16 [address] [place], [place] [address] Finn Harris MD Endocrinology, 12/23/20 MD [place] Diabetes, and Metabolism Wanda Bautista MD Ophthalmology 12/31/20 [address] [place], [place] [address] Gilberto Weathers, Assigned PCP 01/05/21 [address] [place] [address] Finn Harris Assigned Endocrinology 02/09/21 MD [place] Provider NO INFO AVAILABLE Wanda Bautista, Assigned Surgical 02/02/21 Provider [address] [place] [address] Mariah Mcmanus, Assigned MTM Pharmacist 10/18/21 02/06/22 [facility] [address] [facility] [address] [place] [address] documented as of this encounter
--- OUTSIDE RECORDS SUMMARY | 2022-03-05 03:55 | XMS_ITS | Encounter Summary ---
:1985 Author Organization [place] Address [address] [facility] [place] [address] Care Team Providers Name Role Phone Gilberto Weathers MD Primary Care Provider Finn Harris MD Unavailable Unavailable Wanda Bautista MD Unavailable Gilberto Weathers MD Unavailable Finn Harris MD Unavailable Unavailable Wanda Bautista MD Unavailable Sarah Castañeda [facility] Unavailable Reason for Referral Consultation (Routine: Next available opening) - Referral NOT Required Specialty Diagnoses / Procedures Referred By Contact Refer red To Contact Endocrinology, Diagnoses Type 2 diabetes mellitus with hyperglycemia, with long-term current use of insulin (H) Gilberto Weathers, Diabetes, and Metabolism [address] [place] [address] Referral ID Status Reason Start Date Expiration Date Visits V isits Requested Authorized [id number] Referral NOT 02/17/2022 02/17/2023 1 1 Required Reason for Visit Reason Comments Diabetes Discuss insulin pump and cami betic meds Referral For colorectal Encounter Details Date Type Department Care Team Description 02/17/2022 Virtual Visit [facility] Gilberto Weathers Type 2 diabetes mellitus with hyperglycemia, with long-term current use of insulin (H) (Primary Dx); Clinic Ciro Lafleur MD Need for hepatitis C screening test; [address] [place] [address] Screening for hyperlipidemia; [place] [facility] [address] Chronic [place] [address] [phone] Social History Tobacco Use Types Packs/Day Years [...] AM CDT documented as of this encounter Progress Notes Gilberto Weathers MD - 02/17/2022 1:00 PM CDT Ana is a 36 year old who is being evaluated via a billable video visit. How would you like to obtain your AVS? MyChart If the video visit is dropped, the invitation should be resent by: Text to cell phone: [phone] Will anyone else be joining your video visit? No Assessment & Plan Type 2 diabetes mellitus with hyperglycemia, with long-term current use of insulin (H) Patient not well controlled , requires insulin, will refer to endocrinology, increased dose of Lantus and Novolog, continue to monitor blood sugars Still on Metformin, plan to stop once glucose improves - insulin aspart (NOVOLOG PEN) 100 UNIT/ML pen; Take 4 units before breakfast, 8 units before lunch and 8 units before supper Take 1/2 doses if blood sugars are 80-100 Hold the dose if blood sugars areless than 80 - insulin glargine (LANTUS PEN) 100 UNIT/ML pen; Inject 26 Units Subcutaneous At Bedtime - metFORMIN (GLUCOPHAGE) 500 MG tablet; Take 1 tablet (500 mg) by mouth 2 times daily (with meals) - Adult Endocrinology Glaze Grinder Referral; Future Chronic idiopathic constipation Start on fiber supplement - psyllium (METAMUCIL/KONSYL) 58.6 % powder; Take 18 g (1 Tablespoonful) by mouth daily See Patient Instructions Return in about 3 months (around 05/19/2022) for Physical Exam. Gilberto Weathers MD [facility] is a 36 year old, presenting for the following health issues: Diabetes (Discuss insulin pump and diabetic meds) and Referral (For colorectal ) History of Present Illness Reason for visit: Diabetic follow up He eats 2-3 servings of fruits and vegetables daily.He consumes 1 sweetened beverage(s) daily.He exercises with enough effort to increase his heart rate 9 or less minutes per day. He exercises with enough effort to increase his heart rate 3 or less days per week. No acute complaints, no medication change or new medical conditions. Has H/O DM. On diet , exercise and Metformin and Insulin injections. On Lantus 20 units and Novolog 8 units prior to lunch and dinner . Blood sugars are not controlled. No parestesias. No hypoglycemias. Average 7 days blood sugars are 250. Has H/O hyperlipidemia. On medical treatment and diet. No side effects. No muscle weakness, myalgiasor upset stomach. Concern for constipation, has BMs every 2-3 days. Takes Miralax. No abdominal pain, no nausea, vomiting. Review of Systems Constitutional, HEENT, cardiovascular, pulmonary, gi and gu systems are negative, except as otherwise noted. Objective Vitals: No vitals were obtained today due to virtual visit. Physical Exam GENERAL: Healthy, alert and no distress EYES: Eyes grossly normal to inspection. No discharge or erythema, or obvious scleral/conjunctival abnormalities. RESP: No audible wheeze, cough, or visible cyanosis. No visible retractions or increased work of breathing. SKIN: Visible skin clear. No significant rash, abnormal pigmentation or lesions. NEURO: Cranial nerves grossly intact. Mentation and speech appropriate for age. PSYCH: Mentation appears normal, affect normal/bright, judgement and insight intact, normal speech and appearance well-groomed. Video-Visit Details Video Start Time: 1:25 PM Type of service: Video Visit Video End Time:1:35 PM Originating Location (pt. Location): Home Distant Location (provider location): [facility] Platform used for Video Visit: Bill documented in this encounter Plan of Treatment Upcoming Encounters Date Type Specialty Care Team Description 06/16/2022 Virtual Visit Endocrinology Gilberto Weathers MD [address] [place], [place] [phone] Ky Marcos MD [address] [place] [address] Scheduled Referrals Name Type Priority Associated Order Schedule Diagnoses Adult Endocrinology Referral Routine: Next Type 2 diabetes Expe cted: Glaze Grinder Referral available opening mellitus with hyperglycemia, with (Approxi mate), long-term current Expires: use of insulin (H) 3 documented as of this encounter Visit Diagnoses Diagnosis Type 2 diabetes mellitus with hyperglyce roula, with long-term current use of insulin (H) - Primary Need for hepatitis C screening test Special screening examination for other specified viral diseases Screening for hyperlipidemia Screening for lipoid disorders Chronic idiopathic constipation Unspecified constipation documented in this encounter Care Teams Public Health Assistant Relationship Specialty Start Date End Date Gilberto Weathers, PCP - General Internal Medicine 01/13/16 [address] [place], [place] [address] Finn Harris MD Endocrinology, 12/23/20 MD [place] Diabetes, and Metabolism Wanda Bautista MD Ophthalmology 12/31/[address] [place] [address] Gilberto Weathers, Assigned PCP 01/05/21 [address] [place] [address] Finn Harris Assigned Endocrinology 02/09/21 MD [place] Provider NO INFO AVAILABLE Wanda Bautista, Assigned Surgical 02/02/21 Provider [address] [place], [place] [phone] Sarah Castañeda, Pharmacist 02/03/22 02/23/[address] [place] [address] documented as of this encounter
[2022-03-05 03:56] VITALS: TEMP 36.6
[2022-03-05] MEDS: IBUPROFEN 400 MG TABLET 800 MG PO (03:56)
--- OUTSIDE RECORDS SUMMARY | 2022-03-05 03:56 | XMS_ITS | Encounter Summary ---
:1985 Author Organization [place] Address [facility]0 [place] [address] Care Team Providers Name Role Phone Gilberto Weathers MD Primary Care Provider Kiki Acevedo [facility] Unavailable [phone] Finn Harris MD Unavailable Unavailable Wanda Bautista MD Unavailable Gilberto Weathers MD Unavailable Finn Harris MD Unavailable Unavailable Wanda Bautista MD Unavailable Reason for Visit Reason Comments Glaucoma Evaluation Encounter Details Date Type Department Care Team Description 03/10/2021 Office Visit [facility] Wanda Bautista G laucoma suspect, both eyes (Primary Dx); Clinic - [facility] Type 2 diabetes mellitus with hyperglyce roula, with long-term current use of insulin (H); [place] [address] [facility] [address] Myopia of both eyes [address] [place] [address] 9[facility] [address]A [phone] [place], [place] (Work) [address] [phone] Social History Tobacco Use Types Packs/Day Years [...] / COVID-19? documented as of this encounter Progress Notes Wanda Bautista MD - 03/10/2021 2:30 PM CDT HPI Glaucoma Evaluation In both eyes. Vision is fluctuating. Associated symptoms include Negative for eye pain, floaters, flashes and pain with eye movement. Side effects of treatment include none. Pain was noted as 0/10. Comments Doing good w new glasses Blood sugar 217 this am A1C 12.7 taken 12/10/20 Adilia Patiño COA 2:35 PM March 10, 2021 Last edited by Adilia Patiño on 03/10/2021 2:35 PM. (History) HPI: Ana Mcgowan is a 35 year old male here for evaluation of glaucoma suspect. He notes his vision is good with his new glasses. No pain, redness, discharge. No flashes/floater. Assessment & Plan (E11.65, Z79.4) Type 2 diabetes mellitus with hyperglycemia, with long-term current use of insulin (H) (primary encounter diagnosis) Comment: On insulin. Last A1c 12.7 11/2020. No diabetic retinopathy. Plan: Discussed the importance of tight blood glucose control in the prevention of diabetic retinopathy. Recommend yearly dilated eye exam. (H40.003) Glaucoma suspect, both eyes Comment: Increased cup to disc ratio with thinner temporal rim. IOP of 20/23 today ([place]). ? Mother with glaucoma vs cataracts. FH: + Mother Pachymetry: 557/599 (02/2021) Gonioscopy: Tmax: 22/23 Today's IOP: 22/23 Target IOP: Current medications: None Meds to avoid: None Visual field: OVF 24-2 (03/10/21), first time field right eye: Poor reliability, diffuse constriction, 20% FN left eye: Poor reliability, generalized depression; 11% FP, 40% FN Nerve OCT: Spectralis optic nerve OCT (03/10/21) OD: Central RNFL thickness 85, yellow temporally OS: Central RNFL thickness 90, red temporally Plan: Continue to monitor for now. Return in 6 months for IOP check and 1 year for repeat imaging (H52.13) Myopia of both eyes Comment: Good vision with current glasses Plan: Observe --- Patient disposition: Return in about 6 months (around 09/08/2021) for applanation IOP (no dilation), or sooner as needed. Aviva Stokes MD Ophthalmology Resident, PGY-4 Teaching statement: Complete documentation of historical and exam elements from today's encounter can be found in the full encounter summary report (not reduplicated in this progress note). I personally obtained the chiefcomplaint(s) and history of present illness. I confirmed and edited as necessary the review of systems, past medical/surgical history, family history, social history, and examination findings as documented by others; and I examined the patient myself. I personally reviewed the relevant tests, images, and reports as documented above. I formulated and edited as necessary the assessment and plan and discussed the findings and management plan with the patient and family. Wanda Bautista MD [facility] Department of Ophthalmology and Visual Neurosciences [email or web address] Pager [phone] documented in this encounter Nursing Notes Adilia Patiño - 03/10/2021 2:30 PM CDT Chief Complaints and History of Present Illnesses Patient presents with ??? Glaucoma Evaluation Chief Complaint(s) and History of Present Illness(es) Glaucoma Evaluation Laterality: both eyes Quality: fluctuating Associated symptoms: Negative for eye pain, floaters, flashes and pain with eye movement Treatment side effects: none Pain scale: 0/10 Comments Doing good w new glasses Blood sugar 217 this am A1C 12.7 taken 12/10/20 Adilia Patiño COA 2:35 PM March 10, 2021 documented in this encounter Plan of Treatment Upcoming Encounters Date Type Specialty Care Team Description 06/16/2022 Virtual Visit Endocrinology Gilberto Weathers MD [address] [place], [place] [phone] Ky Marcos MD [address] [place] [address] documented as of this encounter Procedures Procedure Name Priority Date/Time Associated Comments Diagnosis OVF 24-2 DYNAMIC OU Routine 03/10/2021 4:00 PM Glaucoma suspec t, Results for this CDT both eyes procedure are i n the results section. OCT OPTIC NERVE RNFL Routine 03/10/2021 4:[address], Results for this SPECTRALIS OU (BOTH CDT both eyes procedur e are in EYES) the results section. documented in this encounter Results OVF 24-2 Dynamic OU (03/10/2021 4:00 PM CDT) Narrative Wanda Bautista MD - 03/10/2021 4:00 P M CDT Performed by: toshia . Patient cooperation: Reliable . Pt was very sleepy - cannot keep his eye s open through the entire test. Dilated. Right Eye Reliability of the test: Fair . Left Eye Reliability of the test: Poor . Notes Visual field: OVF 24-2 (03/10/21), first time field right eye: Poor reliability, diffuse con striction, 20% FN left eye: Poor reliability, generalized depression; 11% FP, 40% FN Wanda Bautista MD OPHTHALMOLOGY OCT Optic Nerve RNFL Spectralis OU (both eyes) (03/10/2021 4:00 PM CDT) Narrative Wanda Bautista MD - 03/10/2021 4:00 P M CDT Right Eye Interval: Initial . Left Eye Interval: Initial . Notes Nerve OCT: Spectralis optic nerve OCT (1 ) OD: Central RNFL thickness 85, yellow te mporally OS: Central RNFL thickness 90, red tempo rally Aviva Stokes MD OPHTHALMOLOGY documented in this encounter Visit Diagnoses Diagnosis Glaucoma suspect, both eyes - Primary Preglaucoma, unspecified Type 2 diabetes mellitus with hyperglyce roula, with long-term current use of insulin (H) Myopia of both eyes Myopia documented in this encounter Care Teams Air Traffic Systems Technician Relationship Specialty Start Date End Date Gilberto Weathers, PCP - General Internal Medicine 01/13/16 [address] [place], [place] [address] Kiki Acevedo Pharmacist Pharmacist 11/08/18 04/29/21 [facility] [address] [id number] Finn Harris MD Endocrinology, 12/23/20 [facility] [place] Diabetes, and Metabolism Wanda Bautista MD Ophthalmology 12/31/[address] [place] [id number] Gilberto Weathers, Assigned PCP 01/05/21 [address] [place], [place] [address] Finn Harris Assigned Endocrinology 02/09/21 [facility] [place] Provider NO INFO AVAILABLE Wanda Bautista, Assigned Surgical 02/02/[address] [place] [phone] documented as of this encounter
--- OUTSIDE RECORDS SUMMARY | 2022-03-05 03:56 | XMS_ITS | Encounter Summary ---
:1985 Author Organization [place] Address [address] [place] [address] Care Team Providers Name Role Phone Gilberto Weathers MD Primary Care Provider Kiki Acevedo [facility] Unavailable [phone] Nancy Martin VISCOSITY INSPECTOR Unavailable Encounter Details Date Type Department Care Team Description 09/13/2019 Patient Self-Triage [facility] [address] [address] Social History Tobacco Use Types Packs/Day Years [...] Endocrinology Gilberto Weathers MD [address] [place], [place] [address] Ky Marcos MD [address] [place], [place] [phone] documented as of this encounter Visit Diagnoses Not on filedocumented in this encounter Care Teams Property Controller Relationship Specialty Start Date End Date Gilberto Weathers MD PCP - General Internal Medicine 01/13/16 [address] [place] [address] Kiki Acevedo, [facility] Pharmacist Pharmacist 11/08/18 04/29/[address] [address] Nancy Martin VISCOSITY INSPECTOR Assigned PCP 03/19/19 03/16/20 [address] [place], [place] [phone] documented as of this encounter
--- OUTSIDE RECORDS SUMMARY | 2022-03-05 03:56 | XMS_ITS | Encounter Summary ---
:1985 Author Organization [place] Address [facility]0 [facility] [place] [address] Care Team Providers Name Role Phone Gilberto Weathers MD Primary Care Provider Kiki Acevedo [facility] Unavailable [phone] Sheila Haney MD Unavailable [phone] Encounter Details Date Type Department Care Team Description 12/16/2020 Travel Social History Tobacco Use Types Packs/Day [...] been in contact with No / Unsure 12/16/2020 11:52 AM CDT someone who was confirmed or suspected to have Coronavirus / COVID-19? documented as of this encounter Plan of Treatment Upcoming Encounters Date Type Specialty Care Team Description 06/16/2022 Virtual Visit Endocrinology Gilberto Weathers MD [address] [place], [place] [phone] Ky Marcos MD [address] [place] [address] documented as of this encounter Visit Diagnoses Not on filedocumented in this encounter Care Teams Hand Icer Relationship Specialty Start Date End Date Gilberto Weathers MD PCP - General Internal Medicine 01/13/16 [address] [place], [place] [phone] Kiki Acevedo, [facility] Pharmacist Pharmacist 11/08/18 04/29/21 [facility]0 [address] [address] Sheila Haney, Assigned PCP 12/15/20 01/04/21 [address] [place], [place] [id number] documented as of this encounter
--- OUTSIDE RECORDS SUMMARY | 2022-03-05 03:56 | XMS_ITS | Encounter Summary ---
:1985 Author Organization [place] Address [address] [facility] [place] [address] Care Team Providers Name Role Phone Gilberto Weathers MD Primary Care Provider Kiki Acevedo [facility] Unavailable [phone] Nancy Martin ELIGIBILITY CLERK Unavailable Encounter Details Date Type Department Care Team Description 09/05/2019 Patient Self-Triage [facility]to [facility] [address] [address] Social History Tobacco Use Types [...] Endocrinology Gilberto Weathers MD [address] [place], [place] [address] Ky Marcos MD [address] [place], [place] [phone] documented as of this encounter Visit Diagnoses Not on filedocumented in this encounter Care Teams Lehr Stripper Relationship Specialty Start Date End Date Gilberto Weathers MD PCP - General Internal Medicine 01/13/16 [address] [place] [address] Kiki Acevedo, [facility] Pharmacist Pharmacist 11/08/18 04/29/[address] [address] Nancy Martin ELIGIBILITY CLERK Assigned PCP 03/19/19 03/16/20 [address] [place], [place] [phone] documented as of this encounter
--- OUTSIDE RECORDS SUMMARY | 2022-03-05 03:56 | XMS_ITS | Encounter Summary ---
:1985 Author Organization [place] Address [address] [facility] [place] [address] Care Team Providers Name Role Phone Gilberto Weathers MD Primary Care Provider Kiki Acevedo [facility] Unavailable [phone] Nancy Martin COLLEGE FOOTBALL COACH Unavailable Reason for Referral Med Therapy Management (Routine) - Closed Specialty Diagnoses / Procedures Referred By Contact Refer red To Contact Pharmacist Diagnoses Type 2 diabetes mellitus with hyperglycemia, with long-term current use of insulin (H) Sheila Haney MD [address] [place] [address] Referral ID Status Reason Start Date Expiration Date Visits Requ ested Visits Authorized [id number] Closed 12/10/2020 12/10/2021 1 1 Reason for Visit Reason Comments Diabetes Patient is being seen for di abetic care. Hospital F/U Encounter Details Date Type Department Care Team Description 12/10/2020 Office Visit [facility] Eliud Haney discharge follow-up (Primary Dx); Clinic [place] Sheila Hawthorne MD Type 2 diabetes mellitus with hyperglyce roula, with long-term current use of insulin (H); [address] [place] [address] Noncompliance with medication regimen; [place] [facility] [place] [address] Social History Tobacco Use Types Packs/Day Years Used Date Smoking Tobacco: Every Day Cigarettes 0.3 5 Smokeless Tobacco: Never Tobacco Cessation: Ready to Quit: No; Co unseling Given: No Alcohol Use Standard Drinks/Week Comments No 0 [...] been in contact with No / Unsure 12/10/2020 9:13 AM CDT someone who was confirmed or suspected to have Coronavirus / COVID-19? documented as of this encounter Last Filed Vital Signs Vital Sign Reading Time Taken Comments Blood Pressure 119/74 12/10/2020 9:21 AM CDT Pulse 98 12/10/2020 9:21 AM CDT Temperature 37.1 ??C (98.8 ??F) 12/10/2020 9:21 AM CDT Respiratory Rate 18 12/10/2020 9:21 AM CDT Oxygen Saturation 99% 12/10/2020 9:21 AM CDT Inhaled Oxygen Concentration - - Weight 89.2 kg (196 lb 11.2 oz) 12/10/2020 9:21 AM CDT Height 175.3 cm (5' 9) 12/10/2020 9:21 AM CDT Body Mass Index 29.05 12/10/2020 9:21 AM CDT documented in this encounter Patient Instructions Patient InstructionsCrintea-Sheila Morales MD - 12/10/2020 10:20 AM CDT Plan: 1. Labs today - [address] 2. Check the blood Sugars 3 times a day 3. Continue with Insulin 20 units at bed time and Metformin 4. Make an appointment with Naye Ramirez D - to review the blood sugars 5. appointment with dr Weathers on Dec 30 at 1:00 pm 6. Omeprazole 20 mg daily for the stomach for 2-4 weeks documented in this encounter Progress Notes Sheila Haney MD - 12/10/2020 10:[address] Haywood's note Patient's instructions / PLAN: Plan: 1. Labs today - [address] 2. Check the blood Sugars 3 times a day 3. Continue with Insulin 20 units at bed time and Metformin 4. Make an appointment with Naye Ramirez D - to review the blood sugars 5. appointment with dr Weathers on Dec 30 at 1:00 pm 6. Omeprazole 20 mg daily for the stomach for 2-4 weeks ASSESSMENT & PLAN: (Z09) Hospital discharge follow-up (primary encounter diagnosis) Comment: Plan: (E11.65, Z79.4) Type 2 diabetes mellitus with hyperglycemia, with long-term current use of insulin (H) Comment: Plan: insulin glargine (LANTUS PEN) 100 UNIT/ML pen, Hemoglobin A1c, Med Therapy Management Referral, Insulin antibody, Glutamic acid decarboxylase antibody, Hemoglobin A1c, TSH with free T4 reflex (Z91.14) Noncompliance with medication regimen Comment: Discussed The importance of taking the DM tx seriously Plan: as above Chief complaint: Hosp f/u SUBJECTIVE: History of present illness: DM -- dx in 2014- 2015 -- fam Hx -- mother -- he doesn't like the needle from the insulin syringe -- he was advised for 20 units daily He wants vit levels check. I explain him that these tests are less likely to be covered by insuranceand he will have to pay oop. I advised him to take MVI daily Lab Results Component Value Date A1C 12.2 11/04/2018 A1C 7.4 09/03/2017 A1C 11.9 06/01/2017 A1C 10.4 12/10/2016 A1C 6.6 03/17/2016 Diabetes Follow-up ?? How often are you checking your blood sugar? Not at all ?? What concerns do you have today about your diabetes? None and Other: ran out of medication last week and went to the ER on Wednesday his blood sugars were extremely high and he was admitted. ?? Do you have any of these symptoms? (Select all that apply) Blurry vision, light headedness and weak ?? Have you had a diabetic eye exam in the last 12 months? No A1c 13.1 on September 04 BP Readings from Last 2 Encounters: 03/27/19 120/62 03/16/19 108/72 Hemoglobin A1C (%) Date Value 11/04/2018 12.2 (H) 09/03/2017 7.4 (H) LDL Cholesterol Calculated (mg/dL) Date Value 11/04/2018 143 (H) 06/01/2017 129 (H) Hyperlipidemia Follow-Up ?? Are you regularly taking any medication or supplement to lower your cholesterol? Yes- Atorvastatin ?? Are you having muscle aches or other side effects that you think could be caused by your cholesterol lowering medication? Patient is no longer taking ?? How many servings of fruits and vegetables do you eat daily? 2-3 ?? On average, how many sweetened beverages do you drink each day (Examples: soda, juice, sweet tea,etc. Do NOT count diet or artificially sweetened beverages)? 2 ?? How many days per week do you exercise enough to make your heart beat faster? 3 or less ?? How many minutes a day do you exercise enough to make your heart beat faster? 9 or less ?? How many days per week do you miss taking your medication? 0 Review of Systems: ROS: negative for fever, chills, cough, wheezes, chest pain, shortness of breath, vomiting, abdominal pain, leg swelling OBJECTIVE: Physical exam: Blood pressure 119/74, pulse 98, temperature 98.8 ??F (37.1 ??C), temperature source Oral, resp. rate 18, height 1.753 m (5' 9), weight 89.2 kg (196 lb 11.2 oz), SpO2 99 %. NAD, appears comfortable Skin: no rashes Neck: supple, no JVD, No thyroidmegaly. Lymph nodes nonpalpable cervical and supraclavicular. Chest: clear to auscultation bilaterally, good respiratory effort Heart: S1 S2, RRR, no mgr appreciated Abdomen: soft, mild epig tender, no hepatosplenomegaly or masses appreciated, no abdominal bruit, present bowel sounds Extremities: no edema, Neurologic: A, Ox3, no focal signs appreciated PMHx: reviewed Past Medical History: Diagnosis Date ??? Diabetes mellitus type 2, controlled (H) 2014 PSHx: reviewed History reviewed. No pertinent surgical history. Meds: reviewed Current Outpatient Medications Medication Sig Dispense Refill ??? alcohol swab prep pads Use to swab area of injection/mendez as directed. 100 each 0 ??? atorvastatin (LIPITOR) 20 MG tablet Take 1 tablet (20 mg) by mouth daily 30 tablet 1 ??? blood glucose (HOMERO MICROLET 2) lancing device Lancing device to be used with lancets. 1 each 0 ??? blood glucose (Interactive Fitness NEXT TEST) test strip TEST blood sugar ONCE DAILY 100 strip 0 ??? blood glucose monitoring (Carrier IQ MICROLET) lancets Use to test blood sugar One times daily. 100 each 0 ??? blood glucose monitoring (Interactive Fitness NEXT MONITOR W/DEVICE KIT) meter device kit To check Blood Glucose one time daily 1 kit 0 ??? fluticasone (FLONASE) 50 MCG/ACT nasal spray [place] 1-2 sprays into both nostrils daily 1 Bottle 11 ??? ibuprofen (ADVIL/MOTRIN) 600 MG tablet Take 1 tablet (600 mg) by mouth every 6 hours as needed 20 tablet 0 ??? metFORMIN (GLUCOPHAGE) 1000 MG tablet TAKE 1 TABLET(1000 MG) BY MOUTH TWICE DAILY WITH MEALS 60 tablet 0 ??? MICROLET LANCETS MISC TEST ONCE DAILY 100 each 1 ??? order for DME Equipment being ordered: All diabetic testing supplies including glucose monitor covered by insurance, test strips, lancets and solution for testing 2-3 times per day. 3 Month 3 Soc Hx: reviewed Fam Hx: reviewed Sheila Haywood MD Internal Medicine Hospital Follow-up Visit: Hospital/Penitentiary/IP Rehab Facility:[facility] Date of Admission: 12/08/2020 Date of Discharge: 12/09/2020 Reason(s) for Admission: Generalized abdominal pain (Primary Dx); Enteritis; Uncontrolled type 2 diabetes mellitus with hyperglycemia, without long-term current use of insulin (HC); Tachycardia; Type 2 diabetes mellitus with hyperglycemia, without long-term current use of insulin (HC) Was your hospitalization related to COVID-19? No Problems taking medications regularly: None Medication changes since discharge: START taking these medicines Instructions Insulin [place] (Disposable) 32 gauge x 5/32 For diagnoses: Uncontrolled type 2 diabetes mellitus with hyperglycemia, without long-term current use of insulin (HC) Commonly known as: Viki Pen Needle As directed. Use once daily with lantus insulin Lantus Solostar U-100 Insulin 100 unit/mL (3 mL) pen For diagnoses: Type 2 diabetes mellitus with hyperglycemia, without long-term current use of insulin(HC) Generic drug: insulin glargine (U-100) Inject 20 units subcutaneous before bedtime Problems adhering to non-medication therapy: None Summary of hospitalization: CareEverywhere information obtained and reviewed Diagnostic Tests/Treatments reviewed. Follow up needed: as above Other Healthcare Providers Involved in Patient???s Care: none Update since discharge: stable. Post Discharge Medication Reconciliation: discharge medications reconciled and changed, per note/orders. Plan of care communicated with patient documented in this encounter Miscellaneous Notes Addendum Note - Corry Mathias - 12/10/2020 10:20 AM CDT Addended by: CORRY MATHIAS on: 12/10/2020 03:31 PM Modules accepted: Orders documented in this encounter Plan of Treatment Upcoming Encounters Date Type Specialty Care Team Description 06/16/2022 Virtual Visit Endocrinology Gilberto Weathers MD [address] [place] [address] Ky Marcos MD [address] [place] [address] Scheduled Referrals Name Type Priority Associated Diagnoses Order S chedule Med Therapy Management Referral Routine Type 2 diabetes Or dered: 12/10/2020 Referral mellitus with hyperglycemia, with long-term current use of insulin (H) documented as of this encounter Procedures Procedure Name Priority Date/Time Associated Comments Diagnosis INSULIN ANTIBODY Routine 12/10/2020 3:31 PM Type 2 diabetes Re sults for this CDT mellitus with procedure are in hyperglycemia, with the resu lts long-term current section. use of insulin (H) GLUTAMIC ACID Routine 12/10/2020 3:31 PM Type 2 diabetes Resul ts for this DECARBOXYLASE ANTIBODY CDT mellitus with proc edure are in hyperglycemia, with the resu lts long-term current section. use of insulin (H) TSH WITH FREE T4 Routine 12/10/2020 10:18 Type 2 diabetes Resu lts for this REFLEX AM CDT mellitus with procedure are in hyperglycemia, with the resu lts long-term current section. use of insulin (H) HEMOGLOBIN A1C Routine 12/10/2020 10:18 Type 2 diabetes Result s for this AM CDT mellitus with procedure are in hyperglycemia, with the resu lts long-term current section. use of insulin (H) documented in this encounter Results Insulin antibody (12/10/2020 3:31 PM CDT) P athologist Signature Insulin <0.4 0.0 - 0.4 12/16/2020 [facility] Antibodies U/mL 6:56 AM CDT Comment: INTERPRETIVE INFORMATION: Insulin Antibo dy A value greater than 0.4 Kronus Units/mL is considered positive for Insulin Antibody. Kronus un its are arbitrary. Kronus Units = U/mL. This assay is intended for the semi-meron titative determination of antibodies to endogenou s insulin or antibodies to exogenous insulin in human serum. Antibodies to exogenous insulin therapies may be de tected using this method. The magnitude of the measured re sult is not related to disease progression. Results should b e interpreted within the context of clinical symptoms. Specimen Anatomical Collection Method / Collection Time Recei lety Time (Source) Location / Volume Laterality Blood STRUCTURE OF LEFT Venipuncture / 12/10/2020 3:31 12/10 3:31 UPPER LIMB / Unknown PM CDT PM CDT Unknown Narrative [facility] - 12/16/2020 6:56 AM CDT Performed By: [facility] [address] [place] [address] Stereotype Molder: Marge Hurt MD Sheila Haney MD LAB - BLOOD ORDERABLE S Performing Organization Address [facility] Phon e Number [facility], [place] [phone] [address] [address] (ABNORMAL) Glutamic acid decarboxylase antibody (12/10/2020 3:31 PM CDT) Patholo gist Method Time Signature Glutamic Acid 15.3 (H) 0.0 - 5.0 12/14/2020 [facility] Decarboxylase IU/mL 7:51 PM CDT Antibody Comment: INTERPRETIVE INFORMATION: ??Glutamic Aci d Decarboxylase Antibody A value greater than 5.0 IU/mL is consid ered positive for Glutamic Acid Decarboxylase Antibody (GA D Ab). This assay is intended for the semi-quantitative de termination of the JIMMY Ab in human serum. Results should be interpreted within the context of clinical symptoms. Specimen Anatomical Collection Method / Collection Time Recei lety Time (Source) Location / Volume Laterality Blood STRUCTURE OF LEFT Venipuncture / 12/10/2020 3:31 12/10 3:31 UPPER LIMB / Unknown PM CDT PM CDT Unknown Narrative [facility] - 12/14/2020 7:51 PM CDT Performed By: [facility] [address] [place], [place] [id number] Stereotype Molder: Marge Hurt MD Sheila Haney MD LAB - BLOOD ORDERABLE S Performing Organization Address City/[facility]/ZIP Code Phon e Number [facility] [employer] [address] [place], [place] [phone] [address] [address] TSH with free T4 reflex (12/10/2020 10:18 AM CDT) P athologist Signature TSH 1.44 0.40 - 4.00 12/11/2020 [facility] mU/L 10:35 AM CDT Specimen Anatomical Collection Method / Collection Time Recei lety Time (Source) Location / Volume Laterality Blood STRUCTURE OF LEFT Venipuncture / 12/10/2020 10:18 07/2 UPPER LIMB / Unknown AM CDT 10:24 AM CDT Unknown Sheila Haney MD LAB - BLOOD ORDERABLE S Performing Organization Address City/[facility]/ZIP Code Phon e Number [facility] [place], [place] [phone] [place] [facility] [phone] Lab (no room number, 1st floor of clinic) [facility] [place], [place] [phone] [facility] [phone] [address] Lab (no room number, 1st floor of clinic) (ABNORMAL) Hemoglobin A1c (12/10/2020 10:18 AM CDT) [facility] Method Time Signature Hemoglobin A1C 12.7 (H) 0.0 - 5.6 12/10/2020 [facility] % 11:38 AM CDT Comment: Normal <5.7% Prediabetes 5.7-6.4% ?? Diabetes 6.5% or higher Note: Adopted from ADA consensus guideli aamir. Specimen Anatomical Collection Method / Collection Time Recei lety Time (Source) Location / Volume Laterality Blood STRUCTURE OF LEFT Venipuncture / 12/10/2020 10:18 11/22 UPPER LIMB / Unknown AM CDT 10:24 AM CDT Unknown Narrative [facility] - 12/10/2020 11:38 AM CDT Consistent with previous result Sheila Haney MD LAB - BLOOD ORDERABLE S Performing Organization Address City/[facility]/ZIP Code [place] [phone] [place] [facility] [address] [place] [facility], [address] [place] [address], [phone] [facility] [address] [place] [facility], [address] documented in this encounter Visit Diagnoses Diagnosis Hospital discharge follow-up - Primary Other follow-up examination Type 2 diabetes mellitus with hyperglyce roula, with long-term current use of insulin (H) Noncompliance with medication regimen Personal history of noncompliance with m edical treatment, presenting hazards to health Epigastric pain Abdominal pain, epigastric documented in this encounter Care Teams Flight Kitchen Manager Relationship Specialty Start Date End Date Gilberto Weathers MD PCP - General Internal Medicine 01/13/16 [address] [place] [address] Kiki Acevedo, [facility] Pharmacist Pharmacist 11/08/18 04/29/[address] [address] Nancy Martin, COLLEGE FOOTBALL COACH Assigned PCP 03/31/20 12/14/20 [address] [place], [place] [id number] documented as of this encounter
--- OUTSIDE RECORDS SUMMARY | 2022-03-05 03:56 | XMS_ITS | Encounter Summary ---
:1985 Author Organization [place] Address [facility] [place] [address] Care Team Providers Name Role Phone Gilberto Weathers MD Primary Care Provider Kiki Acevedo [facility] Unavailable [phone] Finn Harris MD Unavailable Unavailable Wanda Bautista MD Unavailable Gilberto Weathers MD Unavailable Wanda Bautista MD Unavailable Reason for Referral Patient Education (Routine) - Closed Specialty Diagnoses / Procedures Referred By Contact Refer red To Contact Diabetes Education Diagnoses Type 1 diabetes mellitus without complication (H) Finn Harris MD NO INFO AVAILABLE Referral ID Status Reason Start Date Expiration Date Visits Requ ested Visits Authorized [id number] Closed 02/05/2021 02/05/2022 1 1 Reason for Visit Reason Comments Consult For type 1 diabetes Consultation (Routine) - Closed Specialty Diagnoses / Procedures Referred By Contact Refer red To Contact Endocrinology, Diagnoses Type 1 diabetes mellitus without complication (H) Alfred Haney Diabetes, and Sheila Hawthorne MD Metabolism Metabolism [address] [place] [address] [address] [place], [facility] [address] Phone: Fax: Referral ID Status Reason Start Date Expiration Date Visits Requ ested Visits Authorized [id number] Closed 12/16/2020 12/16/2021 1 1 Encounter Details Date Type Department Care Team Description 02/05/2021 Virtual Visit [facility] , Sheila Hwathorne MD [address] [place] [address] Type 1 diabetes mellitus without complic ation (H) (Primary Dx); Clinic Finn Duong MD NO INFO AVAILABLE Tobacco use disorder [address] [facility] [place] [address] Social History Tobacco Use Types Packs/Day Years [...] been in contact with No / Unsure 01/28/2021 10:04 AM CDT someone who was confirmed or suspected to have Coronavirus / COVID-19? documented as of this encounter Progress Notes Finn Harris MD - 02/05/2021 11:30 AM CDT Ana is a 35 year old who is being evaluated via a billable video visit. How would you like to obtain your AVS? MyChart If the video visit is dropped, the invitation should be resent by: Text to cell phone: [phone] Will anyone else be joining your video visit? No Video Start Time: 11:33 AM CC: Type 1 DM. HPI: Patient presents for management of DM. Originally diagnosed as having type 2 DM in 2014. Initially placed on metformin. However, he has not used this for several years. Recently, primary checked labs and JIMMY returned positive. He has resumed his metformin. He is taking 20-22 U lantus at bedtime. He cannot explain why he is varying the dose. He takes 20 U the majority of the time. He is checking glucose once daily, 1 hour after lunch. Readings in the 200's. No hypoglycemia. He is not following any particular diet for his DM. ROS: 10 point ROS neg other than the symptoms noted above in the HPI. PMH: Patient Active Problem List Diagnosis ??? Sinus tachycardia ??? Chest pain ??? Episodic cluster headache, not intractable ??? Non morbid obesity due to excess calories ??? Uncontrolled type 2 diabetes mellitus without complication, without long- term current use of insulin ??? Tobacco use disorder ??? Diabetes mellitus, type 2 (H) ??? Flu-like symptoms ??? Slow transit constipation ??? Chronic idiopathic constipation Meds: Current Outpatient Medications Medication ??? atorvastatin (LIPITOR) 20 MG tablet ??? blood glucose (HOMERO MICROLET 2) lancing device ??? blood glucose (CONTOUR NEXT TEST) test strip ??? blood glucose monitoring (HOMERO MICROLET) lancets ??? blood glucose monitoring (CONTOUR NEXT MONITOR W/DEVICE KIT) meter device kit ??? fluticasone (FLONASE) 50 MCG/ACT nasal spray ??? glucose (BD GLUCOSE) 4 g chewable tablet ??? ibuprofen (ADVIL/MOTRIN) 600 MG tablet ??? insulin glargine (LANTUS PEN) 100 UNIT/ML pen ??? insulin pen needle (BD AUTOSHIELD DUO) 30G X 5 MM ??? metFORMIN (GLUCOPHAGE) 1000 MG tablet ??? MICROLET LANCETS MISC ??? omeprazole (PRILOSEC) [address] capsule ??? polyethylene glycol (MIRALAX) 17 GM/Dose powder ??? alcohol swab prep pads No current facility-administered medications for this visit. X: Mother has type 2 DM. 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 1/3 PPD. Exam: GENERAL: Healthy, alert and no distress EYES: Eyes grossly normal to inspection. No discharge or erythema, or obvious scleral/conjunctival abnormalities. HENT: Normal cephalic/atraumatic. External ears, nose and mouth without ulcers or lesions. No nasal drainage visible. RESP: No audible wheeze, cough, or visible cyanosis. No visible retractions or increased work of breathing. MS: No gross musculoskeletal defects noted. Normal range of motion. No visible edema. SKIN: Visible skin clear. No significant rash, abnormal pigmentation or lesions. NEURO: Cranial nerves grossly intact. Mentation and speech appropriate for age. PSYCH: Mentation appears normal, affect normal/bright, judgement and insight intact, normal speech and appearance well-groomed. A/P: Type 1 DM - Recent change in diagnosis from type 2 to type 1 DM. +JIMMY. We discussed the significanceof this lab. Discussed CGM. Not checking enough now to determine if prandial glucose needed. -Continue metformin. -No change to lantus dose. -Check glucose before each meal and at bedtime. -Rx for Madina system sent to pharmacy. -Referral to diabetes education. -Please email me glucose readings in 1 week. -ASA not indicated. -BP: controlled on last visit. -Lipids: LDL 126 in 01/2021. On atorvastatin now. -Microalbumin due. ACEi not indicated yet. -TSH normal in 01/2021. -Eyes: no DR in 01/2021. He is a glaucoma suspect and is due back for further testing before the end of the year. Tobacco use - Discussed reasons to quit. He is not ready today. Finn Harris M.D Video-Visit Details Type of service: Video Visit Video End Time:11:47 AM Originating Location (pt. Location): Home Distant Location (provider location): [facility] Platform used for Video Visit: [facility] documented in this encounter Plan of Treatment Upcoming Encounters Date Type Specialty Care Team Description 06/16/2022 Virtual Visit Endocrinology Gilberto Weathers MD [facility] [place] [address] Ky Marcos MD [address] [place] [address] Scheduled Referrals Name Type Priority Associated Diagnoses Order S chedule AMB Adult Diabetes Referral Routine: Next Type 1 diabetes Expec mejia: Educator Referral available opening mellitus without 0 02/05/2021 complication (H) (Approximat e), Expires: 02/05/2022 documented as of this encounter Visit Diagnoses Diagnosis Type 1 diabetes mellitus without complic ation (H) - Primary Type I (juvenile type) diabetes mellitus without mention of complication, not stated as uncontrolled Tobacco use disorder documented in this encounter Care Teams Bag Washer Relationship Specialty Start Date End Date Gilberto Weathers, PCP - General Internal Medicine 01/13/16 [address] [place], [place] [address] Kiki Acevedo Pharmacist Pharmacist 11/08/18 04/29/21 [facility] [address] [facility] [address] [place], [place] [address] Finn Harris MD Endocrinology, 12/23/20 [facility], and Metabolism Wanda Bautista MD MD Ophthalmology 12/31/[address] [place] [id number] Gilberto Weathers, Assigned PCP 01/05/21 [address] [place] [address] Wanda Bautista MD Assigned Surgical 02/02/[address] [place] [id number] documented as of this encounter
--- OUTSIDE RECORDS SUMMARY | 2022-03-05 03:56 | XMS_ITS | Encounter Summary ---
:1985 Author Organization [place] Address [address] [facility] [place] [address] Care Team Providers Name Role Phone Gilberto Weathers MD Primary Care Provider Kiki Acevedo [facility] Unavailable [phone] Nancy Martin DITCH REPAIRER Unavailable Encounter Details Date Type Department Care Team Description 10/08/2019 Patient Self-Triage [facility] [address] [address] Social History Tobacco Use Types [...] Endocrinology Gilberto Weathers MD [address] [place], [place] [address] Ky Marcos MD [address] [place], [place] [id number] documented as of this encounter Visit Diagnoses Not on filedocumented in this encounter Care Teams Billing Clinician Relationship Specialty Start Date End Date Gilberto Weathers MD PCP - General Internal Medicine 01/13/16 [address] [place] [address] Kiki Acevedo, [facility] Pharmacist Pharmacist 11/08/18 04/29/[address] [address] Nancy Martin DITCH REPAIRER Assigned PCP 03/19/19 03/16/20 [address] [place], [place] [id number] documented as of this encounter
--- OUTSIDE RECORDS SUMMARY | 2022-03-05 03:56 | XMS_ITS | Encounter Summary ---
:1985 Author Organization [place] Address [address] [place] [address] Care Team Providers Name Role Phone Gilberto Weathers MD Primary Care Provider Kiki Acevedo [facility] Unavailable [phone] Sheila Haney MD Unavailable [phone] Finn Harris MD Unavailable Unavailable Reason for Visit Reason Onset Date Comments No Show No Show 12/25/2020 Patient Education (Routine) - Closed Specialty Diagnoses / Procedures Referred By Contact Refer red To Contact Diabetes Education Diagnoses Type 1 diabetes mellitus without complication (H) [place] [facility] Sheila Hawthorne MD SERVICES [address] [address] [place] [address] Phone: Referral ID Status Reason Start Date Expiration Date Visits Requ ested Visits Authorized [id number] Closed 12/16/2020 12/16/2021 1 1 Encounter Details Date Type Department Care Team Description 12/25/2020 [facility] Sheila Haney MD [address] [place] [address] No Show; No Show Health/Nurse Clinic [place] Mariel[address] Bray [address] [facility] [address] [place], [place] [address] Visit [address] Monica Cameron [address] [place] [address] Social History Tobacco Use Types Packs/Day [...] documented as of this encounter Progress Notes Mariela Bray RD - 12/25/2020 12:00 PM CDT This patient was a no show for this scheduled appointment. documented in this encounter Plan of Treatment Upcoming Encounters Date Type Specialty Care Team Description 06/16/2022 Virtual Visit Endocrinology Gilberto Weathers MD [address] [place] [address] Ky Marcos MD [address] [place] [address] documented as of this encounter Visit Diagnoses Diagnosis NO SHOW - Primary documented in this encounter Care Teams Winemaker Relationship Specialty Start Date End Date Gilberto Weathers MD PCP - General Internal Medicine 01/13/16 [address] [place], [place] [phone] Kiki Acevedo, Pharmacist Pharmacist 11/08/1804/29/21 [facility] [address] [address] Sheila Haney Assigned PCP 12/15/20 1 MD Marine [address] [place], [place] [address] Finn Harris MD Endocrinology, Diabetes, 12/23/20 MD [facility] documented as of this encounter
--- OUTSIDE RECORDS SUMMARY | 2022-03-05 03:56 | XMS_ITS | Encounter Summary ---
:1985 Author Organization [place] Address [facility] [place] [address] Care Team Providers Name Role Phone Gilberto Weathers MD Primary Care Provider Gilberto Weathers MD Unavailable Kiki Acevedo [facility] Unavailable [phone] Reason for Referral Care Coordination (Routine) - Closed Specialty Diagnoses / Procedures Referred By Contact Refer red To Contact Diagnoses Other specified counseling [facility] Coordination [address] [place] [address] [phone] Referral ID Status Reason Start Date Expiration Date Visits Requ ested Visits Authorized [id number] Closed 03/14/2019 03/13/2020 1 1 Encounter Details Date Type Department Care Team Description 03/14/2019 Orders Only [facility] Gilberto Weathers, [facility] er specified Care Coordination MD counseling [facility] [address] [place] [address] [phone] (Wo rk) Social History Tobacco Use Types Packs/Day Years [...] Endocrinology Gilberto Weathers MD [address] [place], [place] [address] Ky Marcos MD [address] [place] [address] Scheduled Referrals Name Type Priority Associated Diagnoses Order S chedule Referral to CC - CHW Referral Routine Other specified coun seling Ordered: 03/14/2019 documented as of this encounter Visit Diagnoses Diagnosis Other specified counseling documented in this encounter Care Teams Pot Fireman Relationship Specialty Start Date End Date Gilberto Weathers MD PCP - General Internal Medicine 01/13/16 [address] [place], [place] [address] Gilberto Weathers MD Assigned PCP 06/05/18 03/18/19 [address] [place] [address] Kiki Acevedo, [facility] Pharmacist Pharmacist 11/08/18 04/29/[address] [address] documented as of this encounter
--- OUTSIDE RECORDS SUMMARY | 2022-03-05 03:56 | XMS_ITS | Encounter Summary ---
:1985 Author Organization [place] Address [facility] [place] [address] Care Team Providers Name Role Phone Gilberto Weathers MD Primary Care Provider Gilberto Weathers MD Unavailable Kiki Acevedo [facility] Unavailable [phone] Reason for Visit Reason Onset Date Comments Clinic Care Coordination - Follow-up 03/14/2019 Encounter Details Date Type Department Care Team Description 03/14/2019 [facility] Cameron Chapa [facility] Care Coordination - Coordination Follow-up [address] [place] [address] Social History Tobacco Use Types Packs/Day Years [...] this encounter Miscellaneous Notes Telephone Encounter - Gilberto Weathers MD - 03/14/2019 5:10 PM CDT Refilled Telephone Encounter - Mervat Miranda, RN - 03/14/2019 4:35 PM CDT Pt has appt in March, on the . Saw Dr Vail in October at our clinic for physical exam. Will route to Dr Weathers to see if willing to fill until appointment. Telephone Encounter - Gilberto Weathers MD - 03/14/2019 3:43 PM CDT I have not seen him for 3 year. Needs appointment. Telephone Encounter - Cameron Chapa - 03/14/2019 2:[address] Weathers Care coordination received notification that patient was recently in ED and [facility] Patient had declined, however, stated that he didn't have a blood glucose monitorand would like a refill on his Metformin Rx. Any questions, please contact patient. documented in this encounter Plan of Treatment Upcoming Encounters Date Type Specialty Care Team Description 06/16/2022 Virtual Visit Endocrinology Gilberto Weathers MD [address] [place] [address] Ky Marcos MD [address] [place], [place] [id number] documented as of this encounter Visit Diagnoses Diagnosis Uncontrolled type 2 diabetes mellitus wi thout complication, without long-term current use of insulin documented in this encounter Care Teams Training Program Assistant Relationship Specialty Start Date End Date Gilberto Wetahers MD PCP - General Internal Medicine 01/13/16 [address] [place], [place] [phone] Gilberto Weathers MD Assigned PCP 06/05/18 03/18/19 [address] [place], [place] [phone] Kiki Acevedo [facility] Pharmacist Pharmacist 11/08/18 04/29/21 [facility] [address] [address] documented as of this encounter
--- OUTSIDE RECORDS SUMMARY | 2022-03-05 03:56 | XMS_ITS | Encounter Summary ---
:1985 Author Organization [place] Address [address] [facility] [place] [place] [address] Care Team Providers Name Role Phone Gilberto Weathers MD Primary Care Provider Kiki Acevedo [facility] Unavailable [phone] Sheila Haney MD Unavailable [phone] Reason for Visit Reason Comments Medication Therapy Management Encounter Details Date Type Department Care Team Description 12/16/2020 Office Visit [facility] Mariah Mcmanus Conge stion of paranasal sinus (Primary Dx); Clinic [facility] Epigastric pain; [address] Type 1 diabetes mellitus with other specified complication (H); [facility] 812 Hyperlipidemia LDL goal <100 [address] [place] [phone] Social History Tobacco Use Types Packs/Day Years [...] Sign Reading Time Taken Comments Blood Pressure - - Pulse - - Temperature - - Respiratory Rate - - Oxygen Saturation - - Inhaled Oxygen Concentration - - Weight 86.2 kg (190 lb) 12/16/2020 12:44 PM CDT Height - - Body Mass Index 28.06 12/10/2020 9:21 AM CDT documented in this encounter Patient Instructions Patient InstructionsSchMariah cox, [facility] - 12/16/2020 11:30 AM CDT Recommendations from today's MTM visit: MTM (medication therapy management) is a service provided by a clinical pharmacist designed to help you get the most of out of your medicines. Today we reviewed what your medicines are for, how to know if they are working, that your medicines are safe and how to make your medicine regimen as easy as possible. 1. Recheck fasting cholesterol labs 2. Ordered the BD Autoshield [place] and glucose tablets daily 3. Schedule eye exam - check with insurance for coverage 4. Carbohydrate counting reviewed aim for 60-75 grams of carbohydrate per meal Follow-up: Return in about 1 month (around 01/16/2021) for Medication Therapy Management. It was great to speak with you today. I value your experience and would be very thankful for your time with providing feedback on our clinic survey. You may receive a survey via email or text message in the next few days. To schedule another MTM appointment, please call the clinic directly or you may call the MTM scheduling line at [phone] or toll-free at . My Clinical Pharmacist's contact information: Please feel free to contact me with any questions or concerns you have. Mariah Mcmanus , Pharm D [phone] (phone) Medication Therapy Management Pharmacist documented in this encounter Progress Notes Mariah Mcmanus [facility] - 12/16/2020 11:30 AM CDT Medication Therapy Management (MTM) Encounter ASSESSMENT: Medication Adherence/Access: See below for considerations Type 1 Diabetes: A1c not at goal. Home readings variable - he did not bring his meter today. Reviewed carbohydrate counting. Ordered Autoshield needles to help with compliance. He did not want to startmeal-time insulin but will consider and discuss with Dr. Weathers. Discussed symptoms of hypoglycemiaand how to treat. Hyperlipidemia: recheck fasting lipids GERD: refilled omeprazole Allergic Rhinitis: refilled fluticasone PLAN: 1. Recheck fasting cholesterol labs 2. Ordered the BD Autoshield [place] and glucose tablets daily 3. Schedule eye exam - check with insurance for coverage 4. Carbohydrate counting reviewed aim for 60-75 grams of carbohydrate per meal Follow-up: Return in about 1 month (around 01/16/2021) for Medication Therapy Management. SUBJECTIVE/OBJECTIVE: Ana Mcgowan is a 35 year old male called for an initial visit. He was referred to me from Dr. Haywood. Reason for visit: diabetes. Allergies/ADRs: Reviewed in chart Tobacco: He reports that he has been smoking. He has a 1.25 pack-year smoking history. He has never used smokeless tobacco.Tobacco Cessation Action Plan: Self help information given to patient 5 per day. Is interested in quitting but has not tried anything. Alcohol: not currently using Medication Adherence/Access: Patient takes medications directly from bottles. Medication barriers: fears/concerns about needles. Type 1 Diabetes: Currently taking Lantus 20 units at bedtime (took a couple of times since being home; doesn't like the needle) and metformin. Patient is not experiencing side effects. Asking if he could get the covered needles he doesn't have to see. Has been referred to Endocrinology. Blood sugar monitorin time(s) daily. Ranges (patient reported): 100-200, one in the 300s Symptoms of low blood sugar? [place] Symptoms of high blood sugar? none Eye exam: due Foot exam: up to date Diet/Exercise: questions about carbohydrates Aspirin: Not taking due to age Statin: prescribed but has been off for a couple of years ACEi/ARB: No. Urine Albumin: Lab Results Component Value Date UMALCR 5.50 06/01/2017 Lab Results Component Value Date A1C 12.7 12/10/2020 A1C 12.2 11/04/2018 A1C 7.4 09/03/2017 A1C 11.9 06/01/2017 A1C 10.4 12/10/2016 A1C 6.6 03/17/2016 Hyperlipidemia: Current therapy includes none. Was on atorvastatin but never refilled; believes he has been off for a couple of years. Recent Labs Lab Test 11/04/18 1451 06/01/17 1114 10/15/14 0520 CHOL 213* 208* 165 HDL 40 43 34* LDL 143* 129* 96 TRIG 148 178* 175* CHOLHDLRATIO -- -- 4.9 GERD: Current medications include: Prilosec (omeprazole) 20 mg as needed. Pt reports no current symptoms. Patient feels that current regimen is effective. Allergic Rhinitis: Current medications include fluticasone nasal spray 1-2 spray(s) as needed. Primary symptoms are nasal congestion. Patient feels that current therapy is effective. Today's Vitals: Wt 190 lb (86.2 kg) BMI 28.06 kg/m?? Post Discharge Medication Reconciliation Status: discharge medications reconciled, continue medications without change. I spent 40 minutes with this patient today. All changes were made via collaborative practice agreement with PCP. A copy of the visit note was provided to the patient's primary care provider. The patient was given a summary of these recommendations. Mariah Mcmanus , Pharm D [phone] (phone) Medication Therapy Management Pharmacist Medication Therapy Recommendations Hyperlipidemia LDL goal <100 Current Medication: atorvastatin (LIPITOR) 20 MG tablet (Discontinued) Rationale: Medication product not available - Adherence - Adherence Recommendation: Provide Education - recheck fasting lipids, consider restarting statin Status: Accepted per CPA Type 1 diabetes mellitus with other specified complication (H) Current Medication: insulin glargine (LANTUS PEN) 100 UNIT/ML pen Rationale: Patient prefers not to take - Adherence - Adherence Recommendation: Provide Education - Changed pen needles Status: Accepted per CPA documented in this encounter Plan of Treatment Upcoming Encounters Date Type Specialty Care Team Description 06/16/2022 Virtual Visit Endocrinology Gilberto Weathers MD [address] [place] [address] Ky Marcos MD [address] [place], [place] [phone] documented as of this encounter Visit Diagnoses Diagnosis Congestion of paranasal sinus - Primary Epigastric pain Abdominal pain, epigastric Type 1 diabetes mellitus with other spec ified complication (H) Hyperlipidemia LDL goal <100 Other and unspecified hyperlipidemia documented in this encounter Care Teams Supervisor Feed House Relationship Specialty Start Date End Date Gilberto Weathers MD PCP - General Internal Medicine 01/13/16 [address] [place], [place] [address] Kiki Acevedo, [facility] Pharmacist Pharmacist 11/08/18 04/29/[address] [address] Sheila Haney, Assigned PCP 12/15/20 01/04/21 [address] [place], [place] [address] documented as of this encounter
--- OUTSIDE RECORDS SUMMARY | 2022-03-05 03:56 | XMS_ITS | Encounter Summary ---
:1985 Author Organization [place] Address [facility]0 [facility] [address] Care Team Providers Name Role Phone Gilberto Weathers MD Primary Care Provider Kiki Acevedo [facility] Unavailable [phone] Sheila Haney MD Unavailable [phone] Finn Harris MD Unavailable Unavailable Wanda Bautista MD Unavailable Encounter Details Date Type Department Care Team Description 12/31/2020 Travel Social History Tobacco Use Types Packs/Day [...] been in contact with No / Unsure 12/31/2020 1:34 PM CDT someone who was confirmed or suspected to have Coronavirus / COVID-19? documented as of this encounter Plan of Treatment Upcoming Encounters Date Type Specialty Care Team Description 06/16/2022 Virtual Visit Endocrinology Gilberto Weathers MD [address] [place] [address] Ky Marcos MD [address] [place], [place] [phone] documented as of this encounter Visit Diagnoses Not on filedocumented in this encounter Care Teams Metal Window Frame Maker Relationship Specialty Start Date End Date Gilberto Weathers MD PCP - General Internal Medicine 01/13/16 [address] [place], [place] [address] Kiki Acevedo, Pharmacist Pharmacist 11/08/1804/29/[address] [address] Chastity-Sheila Morales Assigned PCP 12/15/20 1 MD [facility] [address] [place], [place] [address] Finn Harris MD Endocrinology, Diabetes, 12/23/20 MD [facility] Wanda Bautista MD MD Ophthalmology 12/31/[address] [place] [address] documented as of this encounter
--- OUTSIDE RECORDS SUMMARY | 2022-03-05 03:56 | XMS_ITS | Encounter Summary ---
:1985 Author Organization [place] Address [address] [facility] [place] [address] Care Team Providers Name Role Phone Gilbetro Weathers MD Primary Care Provider Kiki Acevedo [facility] Unavailable [phone] Sheila Haney MD Unavailable [phone] Reason for Visit Reason Onset Date Comments Diabetes Education 12/17/2020 scheduling outreach Encounter Details Date Type Department Care Team Description 12/17/2020 Telephone [facility] Gilberto Weathers [facility] Ciro BARFIELD (scheduling outreach) [address] [place] [address] [place], [place] [phone] (Wo rk) [address] [phone] Social History Tobacco Use Types Packs/Day Years [...] this encounter Miscellaneous Notes Telephone Encounter - Maeve Hester - 12/17/2020 12:11 PM CDT Diabetes Education Scheduling Outreach #1: Call to patient to schedule. Voicemail full. Plan for 2nd outreach attempt within 2 business days. Maeve Hester [place] [facility] Sched[facility] documented in this encounter Plan of Treatment Upcoming Encounters Date Type Specialty Care Team Description 06/16/2022 Virtual Visit Endocrinology Gilberto Weathers MD [address] [place] [address] Ky Marcos MD [address] [place] [address] documented as of this encounter Visit Diagnoses Not on filedocumented in this encounter Care Teams Aviation All Source Intelligence Relationship Specialty Start Date End Date Gilberto Weathers MD PCP - General Internal Medicine 01/13/16 [address] [place] [address] Kiki Acevedo, [facility] Pharmacist Pharmacist 11/08/18 04/29/[address] [address] Sheila Haney, Assigned PCP 12/15/20 01/04/21 [address] [place] [place], [place] [address] documented as of this encounter
--- OUTSIDE RECORDS SUMMARY | 2022-03-05 03:56 | XMS_ITS | Encounter Summary ---
:1985 Author Organization [place] Address [facility] [place] [address] Care Team Providers Name Role Phone Gilberto Weathers MD Primary Care Provider Kiki Acevedo [facility] Unavailable Nancy Martin LEGAL SERVICE SPECIALIST Unavailable Encounter Details Date Type Department Care Team Description 03/27/2019 Travel Social History Tobacco Use Types Packs/Day [...] Endocrinology Gilberto Weathers MD [address] [place] [address] Ky Marcos MD [address] [place] [address] documented as of this encounter Visit Diagnoses Not on filedocumented in this encounter Care Teams Pre Sales Architect Relationship Specialty Start Date End Date Gilberto Weathers MD PCP - General Internal Medicine 01/13/16 [address] [place] [address] Kiki Acevedo, [facility] Pharmacist Pharmacist 11/08/18 04/29/[address] [address] Nancy Martin LEGAL SERVICE SPECIALIST Assigned PCP 03/19/19 03/16/[address] [place], [place] [id number] documented as of this encounter
--- OUTSIDE RECORDS SUMMARY | 2022-03-05 03:56 | XMS_ITS | Encounter Summary ---
:1985 Author Organization [place] Address [address] [facility] [place] [address] Care Team Providers Name Role Phone Gilberto Weathers MD Primary Care Provider Kiki Acevedo [facility] Unavailable [phone] Sheila Haney MD Unavailable [phone] Finn Harris MD Unavailable Unavailable Reason for Referral Consultation (Routine) - Closed Specialty Diagnoses / Procedures Referred By Contact Refer red To Contact Ophthalmology Diagnoses Type 2 diabetes mellitus with hyperglycemia, with long-term current use of insulin (H) Gilberto Weathers MD [facility] Ophthalmology [address] [address] 4th [place] [address] Phone: Fax: Referral ID Status Reason Start Date Expiration Date Visits Requ ested Visits Authorized [id number] Closed 12/30/2020 12/30/2021 1 1 Encounter Details Date Type Department Care Team Description 12/30/2020 Office Visit [facility] Gilberto Weathers Type 2 diabetes mellitus with hyperglycemia, with long-term current use of insulin (H) (Primary Dx); Clinic Ciro Lafleur MD Chronic idiopathic constipation [address] [address] [facility] [phone] Social History Tobacco Use Types Packs/Day Years [...] been in contact with No / Unsure 12/30/2020 1:18 PM CDT someone who was confirmed or suspected to have Coronavirus / COVID-19? documented as of this encounter Last Filed Vital Signs Vital Sign Reading Time Taken Comments Blood Pressure 96/70 12/30/2020 1:38 PM CDT Pulse 97 12/30/2020 1:38 PM CDT Temperature 36.8 ??C (98.3 ??F) 12/30/2020 1:38 PM CDT Respiratory Rate 16 12/30/2020 1:38 PM CDT Oxygen Saturation 100% 12/30/2020 1:38 PM CDT Inhaled Oxygen Concentration - - Weight 86.2 kg (190 lb) 12/30/2020 1:38 PM CDT Height 175.3 cm (5' 9) 12/30/2020 1:38 PM CDT Body Mass Index 28.06 12/30/2020 1:38 PM CDT documented in this encounter Progress Notes Gilberto Weathers MD - 12/30/2020 1:00 PM CDT Assessment & Plan Type 2 diabetes mellitus with hyperglycemia, with long-term current use of insulin (H) Continue current treatment Reassess in 2 months A1C - Lipid panel reflex to direct LDL Fasting - Adult Eye Referral; Future Chronic idiopathic constipation Start Miralax - polyethylene glycol (MIRALAX) 17 GM/Dose powder; Take 17 g by mouth daily BMI: Estimated body mass index is 28.06 kg/m?? as calculated from the following: Height as of this encounter: 1.753 m (5' 9). Weight as of this encounter: 86.2 kg (190 lb). Weight management plan: Discussed healthy diet and exercise guidelines See Patient Instructions Return in about 2 months (around 03/01/2021) for Routine Visit. Gilberto Weathers MD [facility] is a 35 year old who presents for the following health issues HPI Diabetes Follow-up Has H/O DM. On diet , exercise and PO Metformin and Insulin, started . Blood sugars are better controlled. No parestesias. No hypoglycemias. BGs are 180 average. Started treatment 3 weeks ago. How often are you checking your blood sugar? One time daily What time of day are you checking your blood sugars (select all that apply)? mid day Have you had any blood sugars above 200? Yes Have you had any blood sugars below 70? No ?? What symptoms do you notice when your blood sugar is low? NA ?? What concerns do you have today about your diabetes? :wants to talk about insulin dose ?? Do you have any of these symptoms? (Select all that apply) Weight loss ?? Have you had a diabetic eye exam in the last 12 months? No BP Readings from Last 2 Encounters: 12/10/20 119/74 03/27/19 120/62 Hemoglobin A1C (%) Date Value 12/10/2020 12.7 (H) 11/04/2018 12.2 (H) 09/03/2017 7.4 (H) LDL Cholesterol Calculated (mg/dL) Date Value 11/04/2018 143 (H) 06/01/2017 129 (H) ?? How many servings of fruits and vegetables do you eat daily? 2-3 ?? On average, how many sweetened beverages do you drink each day (Examples: soda, juice, sweet tea,etc. Do NOT count diet or artificially sweetened beverages)? 0 ?? How many days per week do you exercise enough to make your heart beat faster? 5 ?? How many minutes a day do you exercise enough to make your heart beat faster? 60 or more How many days per week do you miss taking your medication? 1 ?? What makes it hard for you to take your medications? remembering to take Concerns for chronic constipation. Takes Dulcolax, not sufficient results. Mild abdominal pain noted. No blood in the stools. Review of Systems Constitutional, HEENT, cardiovascular, pulmonary, gi and gu systems are negative, except as otherwise noted. Objective There were no vitals taken for this visit. There is no height or weight on file to calculate BMI. Physical Exam GENERAL: healthy, alert and no distress EYES: Eyes grossly normal to inspection, PERRL and conjunctivae and sclerae normal HENT: ear canals and TM's normal, nose and mouth without ulcers or lesions NECK: no adenopathy, no asymmetry, masses, or scars and thyroid normal to palpation RESP: lungs clear to auscultation - no rales, rhonchi or wheezes CV: regular rate and rhythm, normal S1 S2, no S3 or S4, no murmur, click or rub, no peripheral edemaand peripheral pulses strong ABDOMEN: soft, nontender, no hepatosplenomegaly, no masses and bowel sounds normal MS: no gross musculoskeletal defects noted, no edema SKIN: no suspicious lesions or rashes NEURO: Normal strength and tone, mentation intact and speech normal Office Visit on 12/10/2020 Component Date Value Ref Range Status ??? Hemoglobin A1C 12/10/2020 12.7* 0.0 - 5.6 % Final Normal <5.7% Prediabetes 5.7-6.4% Diabetes 6.5% or higher Note: Adopted from ADA consensus guidelines. ??? TSH 12/10/2020 1.44 0.40 - 4.00 mU/L Final ??? Glutamic Acid Decarboxylase Antibo* 12/10/2020 15.3* 0.0 - 5.0 IU/mL Final INTERPRETIVE INFORMATION: Glutamic Acid Decarboxylase Antibody A value greater than 5.0 IU/mL is considered positive for Glutamic Acid Decarboxylase Antibody (JIMMY Ab). This assay is intended for the semi-quantitative determination of the JIMMY Ab in human serum. Results should be interpreted within the context of clinical symptoms. ? ? Insulin Antibodies 12/10/2020 <0.4 0.0 - 0.4 U/mL Final INTERPRETIVE INFORMATION: Insulin Antibody A value greater than 0.4 Kronus Units/mL is considered positive for Insulin Antibody. Kronus units are arbitrary. Kronus Units = U/mL. This assay is intended for the semi-quantitative determination of antibodies to endogenous insulin or antibodies to exogenous insulin in human serum. Antibodies to exogenous insulin therapies may be detected using this method. The magnitude of the measured result is not related to disease progression. Results should be interpreted within the context of clinical symptoms. documented in this encounter Plan of Treatment Upcoming Encounters Date Type Specialty Care Team Description 06/16/2022 Virtual Visit Endocrinology Gilberto Weathers MD [address] [place] [address] Ky Marcos MD [address] [place], [place] [id number] Scheduled Referrals Name Type Priority Associated Diagnoses Order S [facility] Adult Eye Referral Referral Routine Type 2 diabetes [facility] Expected: 12/30/2020 with hyperglycemia, with (Ap proximate), Expires: long-term current use of 01/2022 insulin (H) documented as of this encounter Procedures Procedure Name Priority Date/Time Associated Diagnosis Comme nts LIPID REFLEX TO Routine 12/30/2020 2:02 PM Type 2 diabetes Res ults for this DIRECT LDL PANEL CDT mellitus with procedure are in hyperglycemia, with the resu lts long-term current section. use of insulin (H) documented in this encounter Results (ABNORMAL) Lipid panel reflex to direct LDL Fasting (12/30/2020 2:02 PM CDT) P athologist Signature Cholesterol 195 <200 mg/dL 12/31/2020 [facility] 7:56 AM CDT Comment: Age 0-19 years Desirable: <170 mg/dL Borderline high: ??170-199 mg/dl High: ?>199 mg/dl Age 20 years and older Desirable: <200 mg/dL Triglycerides 88 <150 mg/dL 12/31/2020 7:56 AM CDT [facility] Comment: 0-9 years: Normal: ?Less than 75 mg/dL Borderline high: ??75-99 mg/dL High: ? Greater than or equal to 100 mg/dL 0-19 years: Normal: ?Less than 90 mg/dL Borderline high: ??90-129 mg/dL High: ? Greater than or equal to 130 mg/dL 20 years and older: Normal: ?Less than 150 mg/dL Borderline high: ??150-199 mg/dL High: ? 200-499 mg/dL Very high: ?? Greater than or equal to 5 00 mg/dL Direct Measure HDL 51 >=40 mg/dL 12/31/2020 7:56 AM C DT [facility] Comment: 0-19 years: ? Greater than or equal to 45 mg/dL Low: Less than 40 mg/dL Borderline low: 40-44 mg/dL 20 years and older: Female: Greater than or equal to 50 mg/d L Male: ?? Greater than or equal to 40 mg/ dL LDL Cholesterol 126 (H) <=100 mg/dL 12/31/2020 7:56 AM CDT [facility] Calculated Comment: Age 0-19 years: Desirable: 0-110 mg/dL Borderline high: 110-129 mg/dL High: >= 130 mg/dL Age 20 years and older: Desirable: <100mg/dL Above desirable: 100-129 mg/dL Borderline high: 130-159 mg/dL High: 160-189 mg/dL Very high: >= 190 mg/dL Non HDL Cholesterol 144 (H) <130 mg/dL 12/31/2020 7:56 AM CDT [facility] Comment: 0-19 years: Desirable: ? Less than 120 mg/ dL Borderline high: ?? 120-144 mg/dL High: ? Greater th an or equal to 145 mg/dL 20 years and older: Desirable: ? 130 mg/dL Above Desirable: 130-159 mg/dL Borderline high: ?? 160-189 mg/dL High: ? 190-219 mg/dL Very high: ?? Greater than or equal to 2 20 mg/dL Patient Fasting > 8hrs? Yes 12/31/2020 7:56 AM CDT [facility] Specimen Anatomical Collection Method / Collection Time Recei lety Time (Source) Location / Volume Laterality Blood BLOOD SPECIMEN / Venipuncture / 12/30/2020 2:02 2020 2:03 Unknown Unknown PM CDT PM CDT Gilberto Weathers MD LAB - BLOOD ORDERABLES Performing Organization Address City/State/ZIP Code Phon e Number [facility] [place], [place] [phone] [place] [facility] [id number] [place] [address] Lab (no room number, 1st floor of clinic) [facility] [place], [place] [phone] [place] [id number] [address] Lab (no room number, 1st floor of clinic) documented in this encounter Visit Diagnoses Diagnosis Type 2 diabetes mellitus with hyperglyce roula, with long-term current use of insulin (H) - Primary Chronic idiopathic constipation Unspecified constipation documented in this encounter Care Teams Business Quality Assurance Analyst Relationship Specialty Start Date End Date Gilberto Weathers MD PCP - General Internal Medicine 01/13/16 [address] [place], [place] [phone] Kiki Acevedo, Pharmacist Pharmacist 11/08/1804/29/21 [facility] [address] [id number] Sheila Haney Assigned PCP 12/15/20 1 MD [facility] [address] [place] [address] Finn Harris MD Endocrinology, Diabetes, 12/23/20 MD [facility] Met[facility] documented as of this encounter
--- OUTSIDE RECORDS SUMMARY | 2022-03-05 03:56 | XMS_ITS | Encounter Summary ---
:1985 Author Organization [place] Address [facility] [place] [address] Care Team Providers Name Role Phone Gilberto Weathers MD Primary Care Provider Gilberto Weathers MD Unavailable Kiki Acevedo [facility] Unavailable [phone] Encounter Details Date Type Department Care Team Description 03/16/2019 Travel Social History Tobacco Use Types Packs/Day [...] Endocrinology Gilberto Weathers MD [address] [place] [address] Ky Marcos MD [address] [place] [address] documented as of this encounter Visit Diagnoses Not on filedocumented in this encounter Care Teams Metal Furniture Glazier Relationship Specialty Start Date End Date Gilberto Weathers MD PCP - General Internal Medicine 01/13/16 [address] [place] [address] Gilberto Weathers MD Assigned PCP 06/05/18 03/18/19 [address] [place] [address] Kiki Acevedo [facility] Pharmacist Pharmacist 11/08/18 04/29/21 [facility] access hospital[facility] [address] [address] documented as of this encounter
--- OUTSIDE RECORDS SUMMARY | 2022-03-05 03:56 | XMS_ITS | Encounter Summary ---
:1985 Author Organization [place] Address [facility] [place] [address] Care Team Providers Name Role Phone Gilberto Weathers MD Primary Care Provider Kiki Acevedo [facility] Unavailable [phone] Finn Harris MD Unavailable Unavailable Wanda Bautista MD Unavailable Gilberto Weathers MD Unavailable Encounter Details Date Type Department Care Team Description 01/28/2021 Travel Social History Tobacco Use Types Packs/Day [...] Endocrinology Gilberto Weathers MD [address] [place] [address] Ky Marcos MD [address] [place] [address] documented as of this encounter Visit Diagnoses Not on filedocumented in this encounter Care Teams Stave Saw Operator Relationship Specialty Start Date End Date Gilberto Weathers MD PCP - General Internal Medicine 01/13/16 [address] [place], [place] [address] Kiki Acevedo, Pharmacist Pharmacist 11/08/1804/29/[address] [id number] Finn Harris MD Endocrinology, Diabetes, 12/23/20 MD [facility] Wanda Bautista MD MD Ophthalmology 12/31/[address] [place] [id number] Gilberto Weathers MD Assigned PCP 01/05/21 [address] [place], [place] [address] documented as of this encounter
--- OUTSIDE RECORDS SUMMARY | 2022-03-05 03:56 | XMS_ITS | Encounter Summary ---
:1985 Author Organization [place] Address [address] [facility] [place] [address] Care Team Providers Name Role Phone Gilberto Weathers MD Primary Care Provider Kiki Acevedo [facility] Unavailable [phone] Finn Harris MD Unavailable Unavailable Wanda Bautista MD Unavailable Gilberto Weathers MD Unavailable Reason for Visit Reason Comments Medication Therapy Management Med Therapy Management (Routine) - Closed Specialty Diagnoses / Procedures Referred By Contact Refer red To Contact Pharmacist Diagnoses Type 2 diabetes mellitus with hyperglycemia, with long-term current use of insulin (H) Sheila Haney MD [address] [place] [address] Referral ID Status Reason Start Date Expiration Date Visits Requ ested Visits Authorized [id number] Closed 12/10/2020 12/10/2021 1 1 Encounter Details Date Type Department Care Team Description 01/13/2021 Office Visit [facility] Mariah Mcmanus, Epiga stric pain (Primary Dx); Clinic [facility] Paronychia of finger of right hand; [address] Type 2 diabetes mellitus with hyperglycemia, with long-term current use of insulin (H); [facility] [address] Hyperlipidemia LDL goal <100; [address] [place], [place] [address] Social History Tobacco Use Types Packs/Day Years Used Date Smoking Tobacco: Every Day Cigarettes 0.3 5 Smokeless Tobacco: Never Tobacco Cessation: Ready to Quit: Yes; Eddie patel Given: Yes Alcohol Use Standard Drinks/Week Comments [...] been in contact with No / Unsure 01/13/2021 1:17 PM CDT someone who was confirmed or suspected to have Coronavirus / COVID-19? documented as of this encounter Last Filed Vital Signs Vital Sign Reading Time Taken Comments Blood Pressure 110/68 01/13/2021 1:34 PM CDT Pulse - - Temperature - - Respiratory Rate - - Oxygen Saturation - - Inhaled Oxygen Concentration - - Weight 86.6 kg (191 lb) 01/13/2021 1:34 PM CDT Height - - Body Mass Index 28.21 12/30/2020 1:38 PM CDT documented in this encounter Patient Instructions Patient InstructionsSchMariah cox, [facility] - 01/13/2021 1:00 PM CDT Recommendations from today's MTM visit: 1. Refilled ibuprofen and insulin today. 2. Will clarify statin/cholesterol recommendation with Dr. Weathers 3. Lantus 22 units daily, if fasting numbers are still >130 after 1 week then increase 24 units daily 4. Appointment with Dr. Harris on 02/05/21 and reschedule with educator Follow-up: 9/20 at 1pm It was great to speak with you today. I value your experience and would be very thankful for your time with providing feedback on our clinic survey. You may receive a survey via email or text message in the next few days. To schedule another MTM appointment, please call the clinic directly or you may call the MTM scheduling line at [phone] or toll-free at . My Clinical Pharmacist's contact information: Please feel free to contact me with any questions or concerns you have. Mariah Mcmanus , Pharm D [phone] (phone) Medication Therapy Management Pharmacist documented in this encounter Progress Notes Mariah Mcmanus RPH - 01/13/2021 1:00 PM CDT Medication Therapy Management (MTM) Encounter ASSESSMENT: Medication Adherence/Access: See below for considerations Type 1 Diabetes: A1c not at goal. Reported home readings not at goal. Will increase Lantus. Discussed setting alarm to remember daily doses. May benefit from meal-time insulin due labs indicating Type I diagnosis, this was not addressed at primary care provider visit but he does have visit with Endocri nology scheduled. He plans to reschedule with certified prosthetist vice president. Congratulated him on reducing his tobbaco use and encouraged complete cessation. Hyperlipidemia: LDL >100, could consider restarting statin per the ADA. Will discuss with primarycare provider. GERD: stable Constipation: Stable Pain: Refilled ibuprofen today PLAN: 1. Refilled ibuprofen and Lantus 2. Will clarify statin recommendation with Dr. Weathers 3. Lantus 22 units daily, if fasting numbers are still >130 after 1 week then increase 24 units daily 4. Appointment with Dr. Harris on 02/05/21 and reschedule with certified prosthetist vice president - discuss Type I vs Type [address] Harris Follow-up: Return in about 1 month (around 02/13/2021). SUBJECTIVE/OBJECTIVE: Ana Mcgowan is a 35 year old male called for a follow-up visit. He was referred to me from Dr. Haywood. Today's visit is a follow-up MTM visit from 12/16/20. Reason for visit: diabetes Allergies/ADRs: Reviewed in chart Tobacco: He reports that he has been smoking. He has a 1.25 pack-year smoking history. He has never used smokeless tobacco.Tobacco Cessation Action Plan: Self help information given to patient - using self-motivation with his quit attempt. Alcohol: not currently using Medication Adherence/Access: maybe misses 2-3 doses of insulin per week, falls asleep before taking Type 1 Diabetes: Currently taking Lantus 20 units at bedtime and metformin 1000 mg twice daily. Patient is having some stomach upset but that has improved since starting Miralax. Was able to get 'covered' needles which has helped with insulin administration so he doesn't have tosee the needles. Has been referred to Endocrinology; scheduled 02/05/21. Missed visit with certified prosthetist vice president. Blood sugar monitorin time(s) daily. Ranges (patient reported): 170-240 Symptoms of low blood sugar? none Symptoms of high blood sugar? none Eye exam: scheduled Jan 28 - feels like pressure in eyes and blurry vision Foot exam: up to date Diet/Exercise: watching carbohydrates - needs to reschedule with certified prosthetist vice president Aspirin: Not taking due to age Statin: [...] couple of years. Recent Labs Lab Test 12/30/20 1402 11/04/18 1451 10/15/14 0520 CHOL 195 213* 165 HDL 51 40 34* LDL 126* 143* 96 TRIG 88 148 175* CHOLHDLRATIO -- -- 4.9 GERD: Current medications include: Prilosec (omeprazole) 20 mg as needed. Pt reports no current symptoms. Patient feels that current regimen is effective. Constipation: Started on Miralax 12/27 and that has helpful. No concerns at this time. Pain: Ran out of ibuprofen so has not been taking. Having some body aches once in awhile. Today's Vitals: BP 110/68 Wt 191 lb (86.6 kg) BMI 28.21 kg/m?? I spent 25 minutes with this patient today. All changes were made via collaborative practice agreement with Gilberto Weathers MD. A copy of the visit note was provided to the patient's primary care provider. The patient was given a summary of these recommendations. Mariah Mcmanus , Pharm D [phone] (phone) Medication Therapy Management Pharmacist Medication Therapy Recommendations Hyperlipidemia LDL goal <100 Rationale: Untreated condition - Needs additional medication therapy - Indication Recommendation: Start Medication - Start atorvastatin 20 mg daily Status: Contact Provider - Awaiting Response Type 2 diabetes mellitus with hyperglycemia (H) Current Medication: insulin glargine (LANTUS PEN) 100 UNIT/ML pen Rationale: Dose too low - Dosage too low - Effectiveness Recommendation: Increase Dose - Lantus 22 units daily Status: Accepted per CPA documented in this encounter Plan of Treatment Upcoming Encounters Date Type Specialty Care Team Description 06/16/2022 Virtual Visit Endocrinology Gilberto Weathers MD [address] [place] [address] Ky Marcos MD [address] [place] [address] documented as of this encounter Visit Diagnoses Diagnosis Epigastric pain - Primary Abdominal pain, epigastric Paronychia of finger of right hand Type 2 diabetes mellitus with hyperglyce roula, with long-term current use of insulin (H) Hyperlipidemia LDL goal <100 Other and unspecified hyperlipidemia Slow transit constipation documented in this encounter Care Teams Cab Supervisor Relationship Specialty Start Date End Date Gilberto Weathers MD PCP - General Internal Medicine 01/13/16 [address] [place] [place], [place] [address] Kiki Acevedo, Pharmacist Pharmacist 11/08/1804/29/[address] [facility] [address] [facility] [address] [place], [place] [phone] Finn Harris MD Endocrinology, Diabetes, 12/23/20 MD [facility] Wanda Bautista MD MD Ophthalmology 12/31/20 [address] [place] [address] Gilberto Weathers MD Assigned PCP 01/05/21 [address] [place], [place] [id number] documented as of this encounter
--- OUTSIDE RECORDS SUMMARY | 2022-03-05 03:56 | XMS_ITS | Encounter Summary ---
:1985 Author Organization [place] Address [facility] [place] [address] Care Team Providers Name Role Phone Gilberto Weathers MD Primary Care Provider Kiki Acevedo [facility] Unavailable [phone] Finn Harris MD Unavailable Unavailable Wanda Bautista MD Unavailable Gilberto Weathers MD Unavailable Encounter Details Date Type Department Care Team Description 01/13/2021 Travel Social History Tobacco Use Types Packs/Day [...] Endocrinology Gilberto Weathers MD [address] [place] [address] Ky Marcos MD [address] [place] [address] documented as of this encounter Visit Diagnoses Not on filedocumented in this encounter Care Teams Public Health Technician Relationship Specialty Start Date End Date Gilberto Weathers MD PCP - General Internal Medicine 01/13/16 [address] [place], [place] [address] Kiki Acevdeo, Pharmacist Pharmacist 11/08/1804/29/[address] [address] Finn Harris MD Endocrinology, Diabetes, 12/23/20 MD [facility] Wanda Bautista MD MD Ophthalmology 12/31/[address] [place] [id number] Gilberto Weathers MD Assigned PCP 01/05/21 [address] [place], [place] [address] documented as of this encounter
--- OUTSIDE RECORDS SUMMARY | 2022-03-05 03:56 | XMS_ITS | Encounter Summary ---
:1985 Author Organization [place] Address [facility] [place] [address] Care Team Providers Name Role Phone Gilberto Weathers MD Primary Care Provider Gilberto Weathers MD Unavailable Kiki Acevedo [facility] Unavailable [phone] Encounter Details Date Type Department Care Team Description 03/14/2019 Travel Social History Tobacco Use Types Packs/Day [...] Endocrinology Gilberto Weathers MD [address] [place] [address] Ky Marcos MD [address] [place] [address] documented as of this encounter Visit Diagnoses Not on filedocumented in this encounter Care Teams Motor Vehicles Inspector Relationship Specialty Start Date End Date Gilberto Weathers MD PCP - General Internal Medicine 01/13/16 [address] [place] [address] Gilberto Weathers MD Assigned PCP 06/05/18 03/18/19 [address] [place] [address] Kiki Acevedo [facility] Pharmacist Pharmacist 11/08/18 04/29/21 [facility] [address] [address] documented as of this encounter
--- OUTSIDE RECORDS SUMMARY | 2022-03-05 03:56 | XMS_ITS | Encounter Summary ---
:1985 Author Organization [place] Address [address] [facility] [place] [address] Care Team Providers Name Role Phone Gilberto Weathers MD Primary Care Provider Gilberto Weathers MD Unavailable Kiki Acevedo [facility] Unavailable [phone] Reason for Visit Reason Onset Date Comments Lab Result Notice 03/16/2019 Encounter Details Date Type Department Care Team Description 03/16/2019 [facility] Barb Bush RN Lab Result Notice Emergency Dept [address] [place] [address] Social History Tobacco Use Types Packs/Day Years [...] this encounter Miscellaneous Notes Telephone Encounter - Barb Bush RN - 03/16/2019 11:09 AM CDT [facility] Emergency Department Lab result notification: Lab Result Final Wound culture (Finger on R hand) report on 03/16/19 Emergency Dept discharge antibiotic prescribed: Doxycycline 100 mg PO tablet, 1 tablet (100 mg) by mouth 2 times daily for 7 days #1. Bacteria, Moderate growth Staphylococcus lugdunensis , which is [SUSCEPTIBLE] to antibiotic Incision and Drainage performed in [facility] ED [Yes / No]: Yes Patient to be notified of result, symptoms assessed and advised per [facility] ED lab result protocol. ED visit Date: 03/14/19 Symptoms reported at ED visit Patient presents to the ER for evaluation of ongoing swelling and painof the distal right middle finger. Exam without evidence of flexor tenosynovitis, septic joint. Recent x-ray did not reveal fracture. There is concern for paronychial abscess with possibly early felon.I&D was performed according to procedure note above. Based on results of this, I suspect that patient just had paronychial abscess. No evidence at this time of felon. Purulence was sent for wound culture. Plan to start on doxycycline and discontinue Keflex. I did encourage to continue soaking the finger in warm soapy water. Plan for wound check in the clinic setting. Close return precautions were discussed prior to discharge. ?? Diagnosis: ? ICD-10-CM ?? 1. Paronychia of finger of right hand L03.011 Wound Culture Aerobic Bacterial Miscellaneous information Pt has appt today at his clinic, with Dr Nancy Martin. Will wait for appt notes regarding wound. Current symptoms 11:27 am Pt says his finger is starting to look better. He does have f/u appt scheduled. Recommendations/Instructions Discussed to finish course of antibiotics as prescribed and to continue warm soapy water soaks. Contact your PCP clinic or return to the Emergency department if your: ?? Symptoms return. ?? Symptoms do not improved after 3 days on antibiotic. ?? Symptoms do not resolve after completing antibiotic. ?? Symptoms worsen or other concerning symptom's. Barb Bush RN [facility] and ED Lab Result F/U RN Caro hart (ED late result f/u RN): P [id number] # [phone] documented in this encounter Plan of Treatment Upcoming Encounters Date Type Specialty Care Team Description 06/16/2022 Virtual Visit Endocrinology Gilberto Weathers MD [address] [place], [place] [id number] Ky Marcos MD [address] [place] [address] documented as of this encounter Visit Diagnoses Not on filedocumented in this encounter Care Teams Oil Tank Car Cleaner Relationship Specialty Start Date End Date Gilberto Weathers MD PCP - General Internal Medicine 01/13/16 [address] [place], [place] [id number] Gilberto Weathers MD Assigned PCP 06/05/18 03/18/19 [address] [place], [place] [phone] Kiki Acevedo, [facility] Pharmacist Pharmacist 11/08/18 04/29/[address] [address] documented as of this encounter
--- OUTSIDE RECORDS SUMMARY | 2022-03-05 03:56 | XMS_ITS | Encounter Summary ---
:1985 Author Organization [place] Address [address] [facility] [place] [address] Care Team Providers Name Role Phone Gilberto Weathers MD Primary Care Provider Kiki Acevedo [facility] Unavailable [phone] Sheila Haney MD Unavailable [phone] Finn Harris MD Unavailable Unavailable Encounter Details Date Type Department Care Team Description 12/30/2020 Travel Social History Tobacco Use Types Packs/Day [...] Endocrinology Gilberto Weathers MD [address] [place], [place] [phone] Ky Marcos MD [address] [place] [address] documented as of this encounter Visit Diagnoses Not on filedocumented in this encounter Care Teams Automation Control Integrator Relationship Specialty Start Date End Date Gilberto Weathers MD PCP - General Internal Medicine 01/13/16 [address] [place], [place] [phone] Kiki Acevedo, Pharmacist Pharmacist 11/08/1804/29/[address] [id number] Sheila Haney Assigned PCP 12/15/20 1 MD [facility] [address] [place], [place] [address] Finn Harris MD Endocrinology, Diabetes, 12/23/20 MD [facility] and Metabolism documented as of this encounter
--- OUTSIDE RECORDS SUMMARY | 2022-03-05 03:56 | XMS_ITS | Encounter Summary ---
:1985 Author Organization [place] Address [facility] [place] [address] Care Team Providers Name Role Phone Gilberto Weathers MD Primary Care Provider Kiki Acevedo [facility] Unavailable [phone] Nancy Martin BALANCE ASSEMBLER Unavailable Encounter Details Date Type Department Care Team Description 12/10/2020 Travel Social History Tobacco Use Types Packs/Day [...] Endocrinology Gilberto Weathers MD [address] [place], [place] [address] Ky Marcos MD [address] [place] [address] documented as of this encounter Visit Diagnoses Not on filedocumented in this encounter Care Teams Back Sewer Relationship Specialty Start Date End Date Gilberto Weathers MD PCP - General Internal Medicine 01/13/[address] [place] [address] [facility] Pharmacist Pharmacist 11/08/18 04/29/[address] [address] Nancy Martin, BALANCE ASSEMBLER Assigned PCP 03/31/20 12/14/[address] [place], [place] [phone] documented as of this encounter
--- OUTSIDE RECORDS SUMMARY | 2022-03-05 03:56 | XMS_ITS | Encounter Summary ---
:1985 Author Organization [place] Address [facility] 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01 03/16/2019 10:30 AM CDT documented in this encounter Progress Notes Nancy Martin, ASSEMBLY MACHINE SET UP MECHANIC - 03/16/2019 10:00 AM CDT SUBJECTIVE: Ana Mcgowan, a 33 year old male scheduled an appointment to discuss the following issues: Paronychia of finger of right hand He is here for follow up worker's comp injury. He was seen in the ED two days ago and had an I & D of his finger and the antibiotic was changedto Doxycycline. Pain is improved, but still having discomfort with pressure. He currently has his finger splinted. No fevers, redness, drainage. Medical, social, surgical, and family histories reviewed. ROS: CONSTITUTIONAL: NEGATIVE for fever, chills INTEGUMENTARY/SKIN: see HPI RESP: NEGATIVE for significant cough or SOB CV: NEGATIVE for chest pain, palpitations MUSCULOSKELETAL:see HPI NEURO: NEGATIVE for weakness, dizziness or paresthesias or headache OBJECTIVE: BP 108/72 Pulse 80 Temp 97.9 ??F (36.6 ??C) (Oral) Resp 12 Ht 1.753 m (5' 9) Wt 95.3 kg (210 lb) BMI 31.01 kg/m?? EXAM: GENERAL APPEARANCE: healthy, alert and no distress MS: tenderness medial aspect of right middle finger along the nailbed SKIN: no suspicious lesions or rashes NEURO: Normal strength and tone, sensory exam grossly normal, mentation intact and speech normal ASSESSMENT/PLAN: (L03.011) Paronychia of finger of right hand (primary encounter diagnosis) Comment: improving Plan: ibuprofen (ADVIL/MOTRIN) 600 MG tablet Report of Workability form completed. He will return to work on 03/23/19. documented in this encounter Plan of Treatment Upcoming Encounters Date Type Specialty Care Team Description 06/16/2022 Virtual Visit Endocrinology Gilberto Weathers MD [address] [place], [place] [address] Ky Marcos MD [address] [place] [address] documented as of this encounter Visit Diagnoses Diagnosis Paronychia of finger of right hand - Cathy bran documented in this encounter Care Teams Director Fraud Relationship Specialty Start Date End Date Gilberto Weathers MD PCP - General Internal Medicine 01/13/16 [address] [place], [place] [address] Gilberto Weathers MD Assigned PCP 06/05/18 03/18/19 [address] [place], [place] [address] Kiki Acevedo [facility] Pharmacist Pharmacist 11/08/18 04/29/[address] [address] documented as of this encounter
--- OUTSIDE RECORDS SUMMARY | 2022-03-05 03:56 | XMS_ITS | Encounter Summary ---
:1985 Author Organization [place] Address [address] [facility] [place] [address] Care Team Providers Name Role Phone Gilberto Weathers MD Primary Care Provider Kiki Acevedo [facility] Unavailable [phone] Nancy Martin ZINC PLATER Unavailable Reason for Visit Reason Comments Hospital F/U Right finger injury Encounter Details Date Type Department Care Team Description 03/27/2019 Office Visit [facility] Du Serrano MD Paronychia of finger Clinic [address] of right hand [address] [place] [address] (Primary Dx) [place] [address] [place], [place] [phone] (Wo rk) [address] [phone] Social History Tobacco Use Types Packs/Day Years [...] Sign Reading Time Taken Comments Blood Pressure 120/62 03/27/2019 4:24 PM ENGINEERING AND OPERATIONS DIRECTOR Pulse 96 03/27/2019 4:24 PM ENGINEERING AND OPERATIONS DIRECTOR Temperature - - Respiratory Rate 10 03/27/2019 4:24 PM ENGINEERING AND OPERATIONS DIRECTOR Oxygen Saturation 100% 03/27/2019 4:24 PM ENGINEERING AND OPERATIONS DIRECTOR Inhaled Oxygen Concentration - - Weight 94.8 kg (209 lb) 03/27/2019 4:24 PM ENGINEERING AND OPERATIONS DIRECTOR Height - - Body Mass Index 30.86 03/16/2019 10:30 AM CDT documented in this encounter Progress Notes Du Serrano MD - 03/27/2019 4:20 PM CST Images from the original note were not included. Subjective Ana Mcgowan is a 33 year old male who presents to clinic today for the following health issues: HPI ED/UC Followup: Facility: [facility] ED Date of visit: 03/14/2019 Reason for visit: Right 3rd finger pain Current Status: No pain, swelling has gone down. He got his finger stuck in a wheel while he was loading. It happened about 3 weeks ago. It got infected and so he went to the ED and they drained the finger. Pus came out. Today there is no pain. He wants a note for work. Reviewed and updated as needed this visit by provider: Tobacco Allergies Meds Problems Med Hx Surg Hx Fam Hx Review of Systems Constitutional, HEENT, cardiovascular, pulmonary, GI, , musculoskeletal, neuro, skin, endocrine and psych systems are negative, except as otherwise noted. This document serves as a record of the services and decisions personally performed and made by Du Serrano MD. It was created on his behalf by Jefe Mendez, a trained medical billing associate. The creation of this document is based the provider's statements to the medical billing associate. Scribe Jefe Mendez 4:46 PM, March 27, 2019 Objective BP 120/62 (BP Location: Right arm, Patient Position: Chair, Cuff Size: Adult Regular) Pulse 96 Resp 10 Wt 94.8 kg (209 lb) SpO2 100% BMI 30.86 kg/m?? Body mass index is 30.86 kg/m??. Physical Exam GENERAL: healthy, alert, well nourished, well hydrated, no distress EYES: Eyes grossly normal to inspection, extraocular movements - intact, and PERRL MS: healed site of the previous paronychia and normal range of motion of the finger. extremities- nogross deformities noted, no edema SKIN: no suspicious lesions, no rashes NEURO: strength and tone- normal, sensory exam- grossly normal, mentation- intact, speech- normal, reflexes- symmetric PSYCH: Alert and oriented times 3; speech- coherent , normal rate and volume; able to articulate logical thoughts, able to abstract reason, no tangential thoughts, no hallucinations or delusions, affect- normal LYMPHATICS: ant. cervical- normal, post. cervical- normal, axillary- normal, supraclavicular- normal, inguinal- normal Assessment & Plan There are no diagnoses linked to this encounter. Tobacco Cessation: reports that he has been smoking. He has a 1.25 pack-year smoking history. He has never used smokeless tobacco. Tobacco Cessation Action Plan: Information offered: Patient not interested at this time BMI: Estimated body mass index is 31.01 kg/m?? as calculated from the following: Height as of 03/16/19: 1.753 m (5' 9). Weight as of 03/16/19: 95.3 kg (210 lb). Weight management plan: Discussed healthy diet and exercise guidelines See Patient Instructions No follow-ups on file. The information in this document, created by the medical billing associate for me, accurately reflects the services I personally performed and the decisions made by me. I have reviewed and approved this document for accuracy prior to leaving the patient care area. 4:56 PM, 03/27/19 Dalton Serrano MD [address] [address] [email or web address] Office: [phone] Pager: [phone] NEERING AND OPERATIONS DIRECTOR documented in this encounter Plan of Treatment Upcoming Encounters Date Type Specialty Care Team Description 06/16/2022 Virtual Visit Endocrinology Gilberto Weathers MD [address] [place], [place] [address] Ky Marcos MD [address] [place] [address] documented as of this encounter Visit Diagnoses Diagnosis Paronychia of finger of right hand - Cathy shant documented in this encounter Care Teams Fishing Line Winding Machine Operator Relationship Specialty Start Date End Date Gilberto Weathers MD PCP - General Internal Medicine 01/13/16 [address] [place] [address] Kiki Acevedo, [facility] Pharmacist Pharmacist 11/08/18 04/29/[address] [address] Nancy Martin, ZINC PLATER Assigned PCP 03/19/19 03/16/20 [address] [place], [place] [address] documented as of this encounter
--- OUTSIDE RECORDS SUMMARY | 2022-03-05 03:56 | XMS_ITS | Encounter Summary ---
:1985 Author Organization [place] Address On license of [facility]0 [facility] [place] [address] Care Team Providers Name Role Phone Gilberto Weathers MD Primary Care Provider Kiki Acevedo [facility] Unavailable [phone] Finn Harris MD Unavailable Unavailable Wanda Bautista MD Unavailable Gilberto Weathers MD Unavailable Reason for Visit Reason Comments Annual Eye Exam Diabetic Eye Exam Consultation (Routine) - Closed Specialty Diagnoses / Procedures Referred By Contact Refer red To Contact Ophthalmology Diagnoses Type 2 diabetes mellitus with hyperglycemia, with long-term current use of insulin (H) Gilberto Weathers MD [facility] Ophthalmology [address] [place] [address] [address] [place] [address] Phone: Fax: Referral ID Status Reason Start Date Expiration Date Visits Requ ested Visits Authorized [id number] Closed 12/30/2020 12/30/2021 1 1 Encounter Details Date Type Department Care Team Description 01/28/2021 Office Visit [facility] Eye Yuri Weathers MD [address] [place] [address] Type 2 diabetes mellitus with hyperglyce roula, with long-term current use of insulin (H) (Primary Dx); [facility] [address] [place] [address] Glaucoma suspect, both eyes; Tommie Priscilla Myopia of both eyes Building [address] [place] [address] [address] Clin [address] [place] [phone] Social History Tobacco Use Types Packs/Day Years [...] encounter Progress Notes Wanda Bautista MD - 01/28/2021 10:00 AM CDT HPI Annual Eye Exam In both eyes. Charactertized as blurred vision. Context: distance vision. Associated symptoms include headache (everyday, back of head and sides, sensitivity to lights when he has a headache). Negative for eye pain, floaters, flashes and double vision. Diabetic Eye Exam Associated symptoms include Negative for floaters, flashes and double vision. Diabetes characteristics include Type 2. Comments Patient is here for annual diabetic eye exam. Last CE was a long time ago. No Hx of correction worn. Noticing some blurry vision for distance. Headaches everyday w/ sensitivity to lights. Lab Results Component Value Date A1C 12.7 12/10/2020 A1C 12.2 11/04/2018 A1C 7.4 09/03/2017 A1C 11.9 06/01/2017 A1C 10.4 12/10/2016 A1C 6.6 03/17/2016 Last edited by Arnav Goyal on 01/28/2021 10:23 AM. (History) HPI: Ana Mcgowan is a 35 year old male here for diabetic eye exam. He notes blurriness in both eyes at distance. Doesn't currently wear glasses. No pain, redness, discharge. No flashes/floater. [...] (tonopen). ? Mother with glaucoma vs cataracts. Plan: Return next 2-3 months for baseline glaucoma evaluation. (H52.13) Myopia of both eyes Comment: Good vision with refraction Plan: Given updated glasses Rx . --- Patient disposition: Return in about 3 months (around 04/29/2021) for pachymetry, applanation IOP, OVF 24-2, dilation, nerve OCT OU, or sooner as needed. Teaching statement: Complete documentation of historical and [...] Pathology Department of Ophthalmology and Visual Neurosciences [email or web address] Pager [phone] documented in this encounter Nursing Notes Arnav Goyal - 01/28/2021 10:00 AM CDT Chief Complaints and History of Present Illnesses Patient presents with ??? Annual Eye Exam ??? Diabetic Eye Exam Chief Complaint(s) and History of Present Illness(es) Annual Eye Exam Laterality: both eyes Quality: blurred vision Context: distance vision Associated symptoms: headache (everyday, back of head and sides, sensitivity to lights when he has a headache). Negative for eye pain, floaters, flashes and double vision Diabetic Eye Exam Associated symptoms: Negative for floaters, flashes and double vision Diabetes Type: Type 2 Comments Patient is here for annual diabetic eye exam. Last CE was a long time ago. No Hx of correction worn. Noticing some blurry vision for distance. Headaches everyday w/ sensitivity to lights. Lab Results Component Value Date A1C 12.7 12/10/2020 A1C 12.2 11/04/2018 A1C 7.4 09/03/2017 A1C 11.9 06/01/2017 A1C 10.4 12/10/2016 A1C 6.6 03/17/2016 Arnav Goyal Outside [employer] documented in this encounter Plan of Treatment Upcoming Encounters Date Type Specialty Care Team Description 06/16/2022 Virtual Visit Endocrinology Gilberto Weathers MD [address] [place] [address] Ky Marcos MD [address] [place] [address] documented as of this encounter Visit Diagnoses Diagnosis Type 2 diabetes mellitus with hyperglyce roula, with long-term current use of insulin (H) - Primary Glaucoma suspect, both eyes Preglaucoma, unspecified Myopia of both eyes Myopia documented in this encounter Care Teams Dial Printer Relationship Specialty Start Date End Date Gilberto Weathesr MD PCP - General Internal Medicine 01/13/16 [address] [place], [place] [address] Kiki Acevedo, Pharmacist Pharmacist 11/08/1804/29/21 [place] [address] [address] [address] Finn Harris MD Endocrinology, Diabetes, 12/23/20 MD [facility] and Metabolism Wanda Bautista MD MD Ophthalmology 12/31/20 [address] [place], [place] [address] Gilberto Weathers MD Assigned PCP 01/05/21 [address] [place] [address] documented as of this encounter
--- OUTSIDE RECORDS SUMMARY | 2022-03-05 03:56 | XMS_ITS | Encounter Summary ---
:1985 Author Organization [place] Address [address] [facility] [place] [address] Care Team Providers Name Role Phone Gilberto Weathers MD Primary Care Provider Kiki Acevedo [facility] Unavailable [phone] Finn Harris MD Unavailable Unavailable Wanda Bautista MD Unavailable Gilberto Weathers MD Unavailable Finn Harris MD Unavailable Unavailable Wanda Bautista MD Unavailable Reason for Visit Reason Onset Date Comments No Show No Show 02/26/2021 Patient Education (Routine) - Closed Specialty Diagnoses / Procedures Referred By Contact Refer red To Contact Diabetes Education Diagnoses Type 1 diabetes mellitus without complication (H) Finn Harris MD NO INFO AVAILABLE Referral ID Status Reason Start Date Expiration Date Visits Requ ested Visits Authorized [id number] Closed 02/05/2021 02/05/2022 1 1 Encounter Details Date Type Department Care Team Description 02/26/2021 [facility] [place] Oscar Harris MD NO INFO AVAILABLE No Show; No Show Health/Nurse Clinic [place] Mariela Bray, [facility] [address] [place] [address] [address] [facility] [address] [place] [address] Social History Tobacco Use Types [...] encounter Progress Notes Mariela Bray RD - 02/26/2021 12:00 PM CDT This patient was a no show for this scheduled appointment. documented in this encounter Plan of Treatment Upcoming Encounters Date Type Specialty Care Team Description 06/16/2022 Virtual Visit Endocrinology Gilberto Weathers MD [address] [place] [address] Ky Marcos MD [address] [place] [address] documented as of this encounter Visit Diagnoses Diagnosis No-show for appointment - Primary documented in this encounter Care Teams Sewage Disposal Worker Relationship Specialty Start Date End Date Gilberto Weathers, PCP - General Internal Medicine 01/13/16 MD [address] [place], [place] [address] Kiki Acevedo Pharmacist Pharmacist 11/08/18 04/29/21 [facility] [address] [address] Finn Harris MD Endocrinology, 12/23/20 MD [place] Diabetes, and Metabolism Wanda Bautista, Ophthalmology 12/31/[address] [place] [id number] Gilberto Weathers, Assigned PCP 01/05/21 MD [address] [place], [place] [phone] Finn Harris Assigned Endocrinology 02/09/21 MD [place] Provider NO INFO AVAILABLE Wanda Bautista, Assigned Surgical 02/02/[address] [place] [id number] documented as of this encounter
--- OUTSIDE RECORDS SUMMARY | 2022-03-05 03:56 | XMS_ITS | Encounter Summary ---
:1985 Author Organization [place] Address [address] [facility] [place] [address] Care Team Providers Name Role Phone Gilberto Weathers MD Primary Care Provider Kiki Acevedo [facility] Unavailable [phone] Finn Harris MD Unavailable Unavailable Wanda Bautista MD Unavailable Gilberto Weathers MD Unavailable Finn Harris MD Unavailable Unavailable Wanda Bautista MD Unavailable Reason for Visit Reason Comments Medication Therapy Management Encounter Details Date Type Department Care Team Description 02/11/2021 Virtual Visit [facility] Mariah Mcmanus Hype rlipidemia LDL goal <100 (Primary Dx); Clinic [facility] Type 2 diabetes mellitus with hyperglyce roula, with long-term current use of insulin (H); [address] Chronic idiopathic constipation [place] [facility] [address] [place] [phone] Social History Tobacco Use Types Packs/Day Years [...] / COVID-19? documented as of this encounter Patient Instructions Patient InstructionsMariah Mcmanus RPH - 02/11/2021 1:30 PM CDT Recommendations from today's MTM visit: 1. Call the [facility] at [phone] and ask about getting the Madina prescriptionfilled. 2. Recommend getting the flu vaccine - you can get this at any pharmacy. Follow-up: Return in about 7 weeks (around 03/31/2021) for Medication Therapy Management. It was great [...] may call the MTM scheduling line at [phone] or toll-free at . My Clinical Pharmacist's contact information: Please feel free to contact me with any questions or concerns you have. Mariah Mcmanus , Pharm D [phone] (phone) Medication Therapy Management Pharmacist documented in this encounter Progress Notes Mariah Mcmanus RPH - 02/11/2021 1:30 PM CDT Images from the original note were not included. Medication Therapy Management (MTM) Encounter ASSESSMENT: Medication Adherence/Access: No issues identified Type 1 Diabetes: A1c not at goal. Has not received the Madina yet that was ordered last week, provided him with pharmacy phone number to call. Follow-up with certified medication aide and Endocrinology as planned. Due for Flu vaccine - he will consider. Hyperlipidemia: stable. Just restarted statin, recheck lipids in 2 months. Constipation: stable PLAN: 1. Provided him with phone number for the [facility] 2. Recommend getting the flu vaccine - you can get this at any pharmacy. Follow-up: Return in about 7 weeks (around 03/31/2021) for Medication Therapy Management. SUBJECTIVE/OBJECTIVE: Ana Mcgowan is a 35 year old male called for a follow-up visit. He was referred to me from Dr. Weathers. Today's visit is a follow-up MTM visit from 01/13/21. Reason for visit: medication review Allergies/ADRs: Reviewed in chart Tobacco: He reports that he has been smoking. He has a 1.25 pack-year smoking history. He has never used smokeless tobacco.Tobacco Cessation Action Plan: Information offered: Patient not interested at this time Alcohol: not currently using Medication Adherence/Access: reports doing better with getting his insulin dose every day Type 1 Diabetes: Currently taking Lantus 20 units at bedtime and metformin 1000 mg twice daily. Patient is having some stomach upset but that has improved since starting Miralax as needed. Was able to get 'covered' needles which has helped with insulin administration so he doesn't have tosee the needles. Was seen by Endocrinology - CMG ordered but has not received yet. Missed visit with certified medication aide. Blood sugar monitorin time(s) daily. Ranges (patient reported): 170-180s Symptoms of low blood sugar? none Symptoms of high blood sugar? none Eye exam: scheduled Jan 28 - feels like pressure in eyes and blurry vision Foot exam: up to date Diet/Exercise: watching carbohydrates - needs to reschedule with certified medication aide Aspirin: Not taking due to age Statin: [...] 88 148 175* CHOLHDLRATIO -- -- 4.9 Constipation: Started on Miralax 12/27 and that has helpful; taking as needed. No concerns at this time. Today's Vitals: There were no vitals taken for this visit. I spent 15 minutes with this patient today. All changes were made via collaborative practice agreement with Gilberto Weathers MD. A copy of the visit note was provided to the patient's primary care provider. The patient was sent via mSeller a summary of these recommendations. Mariah Mcmanus , Pharm D [phone] (phone) Medication Therapy Management Pharmacist Telemedicine Visit Details Type of service: Telephone visit Start Time: 121 pm End Time: 1:36 PM Originating Location (patient location): Home Distant Location (provider location): [facility] Medication Therapy Recommendations No medication therapy recommendations to display documented in this encounter Plan of Treatment Upcoming Encounters Date Type Specialty Care Team Description 06/16/2022 Virtual Visit Endocrinology Gilberto Weathers MD [address] [place] [address] Ky Marcos MD [address] [place], [place] [phone] documented as of this encounter Visit Diagnoses Diagnosis Hyperlipidemia LDL goal <100 - Primary Other and unspecified hyperlipidemia Type 2 diabetes mellitus with hyperglyce roula, with long-term current use of insulin (H) Chronic idiopathic constipation Unspecified constipation documented in this encounter Care Teams Certified Coatings Inspector Relationship Specialty Start Date End Date Gilberto Weathers, PCP - General Internal Medicine 01/13/16 [address] [place], [place] [address] Kiki Acevedo Pharmacist Pharmacist 11/08/18 04/29/21 [place] [facility] [address] [address] Finn Harris MD Endocrinology, 12/23/20 MD [facility] Wanda Bautista, Ophthalmology 12/31/[address] [place] [address] [id number] Gilberto Weathers, Assigned PCP 01/05/21 [address] [place], [place] [address] Finn Harris Assigned Endocrinology 02/09/21 MD [place] Provider NO INFO AVAILABLE Wanda Bautista, Assigned Surgical 02/02/[address] [place] [address] [phone] documented as of this encounter
--- OUTSIDE RECORDS SUMMARY | 2022-03-05 03:56 | XMS_ITS | Encounter Summary ---
:1985 Author Organization [place] Address [address] [facility] [place] [address] Care Team Providers Name Role Phone Gilberto Weathers MD Primary Care Provider Kiki Acevedo [facility] Unavailable [phone] Finn Harris MD Unavailable Unavailable Wanda Bautista MD Unavailable Gilberto Weathers MD Unavailable Wanda Bautista MD Unavailable Encounter Details Date Type Department Care Team Description 01/15/2021 Telephone [facility] Alexandr Mcmanus, [address] [place] [address] [address] [place] [address] Social History Tobacco Use [...] this encounter Miscellaneous Notes Telephone Encounter - Alexandr Mcmanus [facility] - 02/03/2021 10:42 AM CDT Called patient to discuss restarting statin. He is willing to do that. Prescription for atorvastatin 20 mg daily sent to the pharmacy today. Telephone Encounter - Alexandr Mcmanus [facility] - 01/15/2021 1:43 PM CDT Called patient to discuss starting statin. No answer and no VM. Will try again next week. Telephone Encounter - Alexandr Mcmanus [facility] - 01/15/2021 1:43 PM CDT ----- Message from Mahogany Romero NP sent at 01/15/2021 1:30 PM CDT ----- Regarding: RE: Lipids Alexandr, recommend re start statin, repeat labs 3 months. Mahogany Romero CNP ----- Message ----- From: Alexandr Mcmanus [facility] Sent: 01/13/2021 1:54 PM CDT To: Gilberto Weathers MD Subject: Lipids Hi Dr. Weathers I met with this patient to review his medication. He was on a statin in the past but stopped when heran out of refills. Below are his recent lipid labs should he restart the statin? He does have diabetes but no other CV risk. Lab Test 12/30/20 11/04/18 10/15/14 1402 1451 0520 CHOL 195 213# 165 HDL 51 40 34# LDL 126# 143# 96 TRIG 88 148 175# CHOLHDLRATIO -- -- 4.9 Thank you Alexandr Mcmanus , Pharm D [phone] (phone) Medication Therapy Management Pharmacist Addendum Note - Alexandr Mcmanus [facility] - 01/15/2021 1:43 PM CDT Addended by: ALEXANDR MCMANUS on: 02/03/2021 10:44 AM Modules accepted: Orders documented in this encounter Plan of Treatment Upcoming Encounters Date Type Specialty Care Team Description 06/16/2022 Virtual Visit Endocrinology Gilberto Weathers MD [address] [place], [place] [address] Ky Marcos MD [address] [place] [address] documented as of this encounter Visit Diagnoses Diagnosis Hyperlipidemia LDL goal <100 - Primary Other and unspecified hyperlipidemia documented in this encounter Care Teams Joint Cutter Machine Relationship Specialty Start Date End Date Gilberto Weathers, PCP - General Internal Medicine 01/13/16 MD [address] [place], [place] [address] Kiki Acevedo Pharmacist Pharmacist 11/08/18 04/29/21 [place] [facility] [address] [id number] Finn Harris MD Endocrinology, 12/23/20 MD [place] Diabetes, and Metabolism Wanda Bautista MD MD Ophthalmology 12/31/[address] [place] [id number] Gilberto Weathers, Assigned PCP 01/05/21 MD [address] [place], [place] [address] Wanda Bautista MD Assigned Surgical 02/02/21 6 [facility] Provider [place], [place] [phone] documented as of this encounter
--- OUTSIDE RECORDS SUMMARY | 2022-03-05 03:56 | XMS_ITS | Encounter Summary ---
:1985 Author Organization [facility] Address [facility] [place] [address] Care Team Providers Name Role Phone Gilberto Weathers MD Primary Care Provider Kiki Acevedo [facility] Unavailable [phone] Nancy Martin PREMIUM REPRESENTATIVE Unavailable Encounter Details Date Type Department Care Team Description 11/28/2019 Office Visit [facility] Du Serrano MD [facility] Clinic [address] ENCOUNTER--DISREGARD [address] [place] [address] (Primary Dx) [place] [address] [place], [place] [phone] (Wo rk) [address] [phone] Social History Tobacco Use Types Packs/Day Years [...] documented as of this encounter Progress Notes Du Serrano MD - 11/28/2019 11:20 AM CDT error documented in this encounter Plan of Treatment Upcoming Encounters Date Type Specialty Care Team Description 06/16/2022 Virtual Visit Endocrinology Gilberto Weathers MD [address] [place] [address] Ky Marcos MD [address] [place] [address] documented as of this encounter Visit Diagnoses Diagnosis ERRONEOUS ENCOUNTER--DISREGARD - Primary documented in this encounter Care Teams Top Frame Fitter Relationship Specialty Start Date End Date Gilberto Weathers MD PCP - General Internal Medicine 01/13/16 [address] [place] [address] Kiki Acevedo [facility] Pharmacist Pharmacist 11/08/18 04/29/21 [address] [facility] [address] [place] [address] Nancy Martin NP Assigned PCP 03/19/19 03/16/[address] [place] [address] documented as of this encounter
--- OUTSIDE RECORDS SUMMARY | 2022-03-05 03:57 | XMS_ITS | Encounter Summary ---
:1985 Author Organization [place] Address [address] [facility] [place] [address] Care Team Providers Name Role Phone Gilberto Weathers MD Primary Care Provider Abbie Molina APRN APPLICATION LEAD Unavailable Reason for Visit Reason Onset Date Comments Formulary Issue 06/08/2017 Lantus- Pharmacist w as able to run through again and get covered. Encounter Details Date Type Department Care Team Description 06/08/2017 Telephone [facility] Gilberto Weathers, For mulary Issue Clinic Ciro BARFIELD (Lantus- Pharmacist [address] [place] [address] through again and get [place], [place] [phone] (Wo rk) covered.) [address] [phone] Social History Tobacco Use Types Packs/Day Years [...] this encounter Miscellaneous Notes Telephone Encounter - Kimberly Moreno - 06/08/2017 3:38 PM CST Lantus- Pharmacist was able to run through again and get covered. D APPRAISER documented in this encounter Plan of Treatment Upcoming Encounters Date Type Specialty Care Team Description 06/16/2022 Virtual Visit Endocrinology Gilberto Weathers MD [address] [place], [place] [phone] Ky Marcos MD [address] [place], [place] [phone] documented as of this encounter Visit Diagnoses Not on filedocumented in this encounter Care Teams Property And Casualty Insurance Agent Relationship Specialty Start Date End Date Gilberto Weathers MD PCP - General Internal Medicine 01/13/16 [address] [place], [place] [phone] Abbie Molina APRN PCP - Assigned PCP 06/06/17 06/04/18 APPLICATION LEAD [address] [place], [place] [phone] documented as of this encounter
--- OUTSIDE RECORDS SUMMARY | 2022-03-05 03:57 | XMS_ITS | Encounter Summary ---
:1985 Author Organization [place] Address [address] [facility] [place] [address] Care Team Providers Name Role Phone Gilberto Weathers MD Primary Care Provider Gilberto Weathers MD Unavailable Kiki Acevedo [facility] Unavailable [phone] Reason for Visit Reason Comments right 3rd finger pain Encounter Details Date Type Department Care Team Description 03/14/[address] [facility] Chaka Cunningham MD Paronychia of finger [facility] of right hand [address] [place], [place] [address] [email or web address] [id number] [place] [address] [place], [place] [phone] (Wo rk) Social History Tobacco Use Types [...] Sign Reading Time Taken Comments Blood Pressure 129/73 03/14/2019 2:46 AM CDT Pulse - - Temperature 36.7 ??C (98 ??F) 03/14/2019 2:03 AM CDT Respiratory Rate 18 03/14/2019 2:46 AM CDT Oxygen Saturation 100% 03/14/2019 2:46 AM CDT Inhaled Oxygen Concentration - - Weight 97.5 kg (214 lb 15.2 oz) 03/14/2019 2:03 AM CDT Height - - Body Mass Index 32.68 11/03/2018 9:21 AM CDT documented in this encounter Discharge Instructions Discharge InstructionsHunter Cunningham MD - 03/14/2019 2:43 AM CDT We drained the infection from around your finger. Sometimes, even with antibiotics, another incisioninto the side of the finger needs to be performed. Monitor the finger for worsening swelling, redness and return if you notice this. You can soak the finger in warm soapy water twice daily. Take 400-600mg of ibuprofen every 6 hours for pain. You can also take tylenol 650mg every 6 hours for pain. AttachmentsThe following attachments cannot be sent through Care Everywhere. Paronychia of the Finger or Toe (Cymro)documented in this encounter Medications at Time of Discharge Medication Sig Dispensed Refills Start Date End Date atorvastatin (LIPITOR) 20 Take 1 tablet (20 30 tablet 1 12/16/2020 MG tabletIndications: mg) by mouth daily Hyperlipidemia LDL goal <100 cephALEXin (KEFLEX) 500 Take 1 capsule (500 30 capsule 0 03/16/2019 MG capsuleIndications: mg) by mouth 3 Paronychia of finger, times daily for 10 right days docusate sodium (COLACE) Take 1 capsule (100 60 capsule 1 12/10/2020 100 MG mg) by mouth 2 capsuleIndications: Slow times daily transit constipation doxycycline hyclate Take 1 capsule (100 14 capsule 0 019 03/27/2019 (VIBRAMYCIN) 100 MG mg) by mouth 2 capsule times daily for 7 days fluticasone (FLONASE) 50 [place] 1-2 sprays 1 Bottle 11 01/1212/16/2020 MCG/ACT nasal into both nostrils sprayIndications: daily Congestion of paranasal sinus HYDROcodone-acetaminophen Take 1-2 tablets by 4 tablet 0 1 03/27/2019 (NORCO) 5-325 MG tablet mouth every 4 hours as needed for severe pain ibuprofen (ADVIL/MOTRIN) Take 1 tablet (600 20 tablet 0 03/16/2019 600 MG tablet mg) by mouth every 6 hours as needed MICROLET LANCETS TEST ONCE DAILY 100 each 1 11/22/2018 MISCIndications: Uncontrolled type 2 diabetes mellitus without complication, without long-term current use of insulin nystatin (MYCOSTATIN) Apply topically 2 15 g 1 019 12/10/2020 850288 UNIT/GM external times daily creamIndications: Perleche omeprazole (PRILOSEC) 20 Take 1 capsule (20 90 capsule 1 01/201803/27/2019 MG CR capsuleIndications: mg) by mouth daily Abdominal pain, epigastric order for DMEIndications: Equipment being ordered: 3 Month 3 06/01/2017 12/16/2020 Uncontrolled type 2 All diabetic testing supplie s including glucose monitor covered by insurance, test strips, lancets and solution for testing 2-3 times per day. diabetes mellitus without complication, without long-term current use of insulin, Other fatigue documented as of this encounter ED Notes Cristal Villarreal RN - 03/14/2019 1:59 AM CDT Right 3rd finger pain since mar 05 it was work comp. Now finger swollen and painful . Got put on antibiotics on Wednesday Hunter Cunningham MD - 03/14/2019 1:55 AM CDT History Chief Complaint: right 3rd finger pain HPI Ana Mcgowan is a 33 year old male who presents to the emergency department today with right 3rd finger pain. The patient states he was grabbing luggage at the airport and his finger got jammed on thewheel about 10 days ago. He stayed home after a few days, then went back to work and used his hand. This morning he saw PCP and was given antibiotic and told to soak to the finger. The finger has been more swollen for the last 3 days. He denies numbness or tingling or fever. Allergies: No Known Drug Allergies ?? Medications: Lipitor Blood glucose monitoring Colace Flonase Glucophage Mycostatin Prilosec Keflex Past Medical History: Diabetes Episodic cluster headache Sinus tachycardia ?? Past Surgical History: History reviewed. No pertinent past surgical history. ?? Family History: Hypertension Social History: The patient was alone. Smoking Status: Current every day smoker Smokeless Tobacco: Never Alcohol Use: No Marital Status: Single Review of Systems Musculoskeletal: Positive for arthralgias (right 3rd finger pain with swelling). Neurological: Negative for numbness. All other systems reviewed and are negative. Physical Exam Patient Vitals for the past 24 hrs: BP Temp Temp src Heart Rate Resp SpO2 Weight 03/14/19 0203 (!) 134/90 98 ??F (36.7 ??C) Oral 90 20 100 % 97.5 kg (214 lb 15.2 oz) Physical Exam VS: Reviewed per above HENT: Mucous membranes moist EYES: sclera anicteric CV: Rate as noted, regular rhythm. RESP: Effort normal. NEURO: Alert, moving all extremities. Sensation intact to light touch in the distal right third finger. MSK: No deformity of the extremities. DP pulse in R hand intact. Swelling of the right radial middlefinger paronychial fold with swelling extending somewhat into the pulp. No tenderness over the flexor tendons. FDS/FDP/extensor tendon function intact in the right third finger. SKIN: Warm and dry Emergency Department Course Laboratory: Laboratory findings were communicated with the patient who voiced understanding of the findings. Wound culture: Pending Procedures: Incision and Drainage LOCATIONS: Right 3rd finger ANESTHESIA: Digital block using 1% lidocaine, 2 cc PREPARATION: Cleansed with chlorhexidine swab PROCEDURE: Area was incised with pointed edge of iris scissor. There was return of purulent material. Deloculation of any residual abscess was attempted with edge of iris scissor via the incision site at the paronychial fold. PATIENT STATUS: Patient tolerated the procedure well. There were no complications. Emergency Department Course: Nursing notes and vitals reviewed. 0208: I performed an exam of the patient as documented above. Wound culture was sent. 0223: Findings and plan explained to the Patient. Patient discharged home with instructions regarding supportive care, medications, and reasons to return. The importance of close follow-up was reviewed. The patient was prescribed Doxycycline. I personally reviewed the laboratory results with the Patient and answered all related questions prior to discharge. Impression & Plan Medical Decision Making: Patient presents to the ER for evaluation of ongoing swelling and pain of the distal right middle finger. Exam without evidence of flexor tenosynovitis, septic joint. Recent x-ray did not reveal fracture. There is concern for paronychial abscess with possibly early felon. I&D was performed according to procedure note above. [...] return precautions were discussed prior to discharge. Diagnosis: ICD-10-CM 1. Paronychia of finger of right hand L03.011 Wound Culture Aerobic Bacterial Disposition: discharged to home Discharge Medications: New Prescriptions DOXYCYCLINE HYCLATE (VIBRAMYCIN) 100 MG CAPSULE Take 1 capsule (100 mg) by mouth 2 times daily for 7 days Scribe Disclosure: Huma Black MD, am serving as a scribe at 2:06 AM on 03/14/2019 to document services personally performed by Hunter Cunningham MD based on my observations and the provider's statements to me. 03/14/2019 [facility] EMERGENCY DEPARTMENT Hunter Cunningham MD 03/14/19 0249 documented in this encounter Miscellaneous Notes Result Encounter Note - Antonio Paulson RN - 03/14/2019 2:46 AM CDT Await final culture report per [facility] ED Lab Result protocol. Result Encounter Note - Antonio Paulson RN - 03/14/2019 2:46 AM CDT Await final culture report per [facility] ED Lab Result protocol. documented in this encounter Plan of Treatment Upcoming Encounters Date Type Specialty Care Team Description 06/16/2022 Virtual Visit Endocrinology Gilberto Weathers MD [address] [place] [address] Ky Marcos MD [address] [place] [address] documented as of this encounter Procedures Procedure Name Priority Date/Time Associated Diagnosis Comme nts WOUND CULTURE STAT 03/14/2019 2:22 AM Paronychia of finger Results for this AEROBIC BACTERIAL CDT of right hand procedure are in the results section. documented in this encounter Results (ABNORMAL) Wound Culture Aerobic Bacterial (03/14/2019 2:22 AM CDT) Component Value Ref Test Analysis Performed At [facility] Range Method Time Signature Specimen Wound Finger INFECTIOUS Description Middle Right Hand DISEASES DIAGNOSTIC LABORATORY Special Specimen 03/14/2019 INFECTIOUS Requests collected in 8:15 AM CDT DISEASES eSwab transport DIAGNOSTIC (white cap) LABORATORY Culture Micro Moderate growth 03/16/2019 INFECTIOU S Staphylococcus lugdunensis 4:58 AM CDT D ISEASES (A) DIAGNOSTIC LABORATORY Specimen Anatomical Collection Method Collection Time Receive d Time (Source) Location / / Volume Laterality Specimen from 03/14/2019 2:22 AM 03/14/20 19 2:25 wound (specimen) CDT AM CDT Comment: Finger~Middle~Right~Hand Organism Antibiotic Method Susceptibility Staphylococcus lugdunensis Clindamycin SUSANA <=0.2 5 ug/mL: Susceptible Staphylococcus lugdunensis Erythromycin SUSANA <=0.2 5 ug/mL: Susceptible Staphylococcus lugdunensis Gentamicin SUSANA <=0.5 ug/mL: Susceptible Staphylococcus lugdunensis Oxacillin SUSANA 2 ug/ mL: Susceptible Staphylococcus lugdunensis Tetracycline SUSANA <=1 u g/mL: Susceptible Staphylococcus lugdunensis Trimethoprim/Sulfamethoxa SUSANA <=0.5/9.5 ug/mL: zole Susceptible Staphylococcus lugdunensis Vancomycin SUSANA <=0.5 ug/mL: Susceptible Hunter Cunningham MD LAB - MICRO GENERAL ORDERABL ES Performing Organization Address City/State/ZIP Code Phon e Number INFECTIOUS DISEASES [address] [place] [address] DIAGNOSTIC LABORATORY, [facility] INFECTIOUS DISEASES [address] [place] [address], [place] [facility] documented in this encounter Visit Diagnoses Diagnosis Paronychia of finger of right hand documented in this encounter Active and Recently Administered Medications Care Teams Roof Foreman Relationship Specialty Start Date End Date Gilberto Weathers MD PCP - General Internal Medicine 01/13/16 [address] [place], [place] [phone] Gilberto Weathers MD Assigned PCP 06/05/18 03/18/19 [address] [place], [place] [phone] Kiki Acevedo [facility] Pharmacist Pharmacist 11/08/18 04/29/[address] [address] documented as of this encounter
--- OUTSIDE RECORDS SUMMARY | 2022-03-05 03:57 | XMS_ITS | Encounter Summary ---
:1985 Author Organization [place] Address [facility] [place] [address] Care Team Providers Name Role Phone Gilberto Weathers MD Primary Care Provider Abbie Molina APRN BROKE BEATER Unavailable [phone] Gilberto Weathers MD Unavailable Gilberto Weathers MD Unavailable Kiki Acevedo [facility] Unavailable [phone] SchwMariah mcdowell [facility] Unavailable Nancy Martin CAR HEAD LINER INSTALLER Unavailable Du Serrano MD Unavailable Nancy Martin CAR HEAD LINER INSTALLER Unavailable Sheila Haney MD Unavailable Finn Harris MD Unavailable Unavailable Wanda Bautista MD Unavailable Gilberto Weathers MD Unavailable Finn Harris MD Unavailable Unavailable Wanda Bautista MD Unavailable Mariah Mcmanus [facility] Unavailable Sarah Castañeda [facility] Unavailable Mariah Mcmanus [facility] Unavailable Ky Marcos MD Unavailable Reason for Visit Reason Onset Date Comments Diabetes Education 06/10/2017 Encounter Details Date Type Department Care Team Description 06/10/2017 Telephone [facility] Abbie Molina Ma, Diabetes Education [place] [facility] NURSE BROKE BEATER [address] [place] [address] [place] [address] [place], [place] [phone] (Wo rk) [id number] [phone] Social History Tobacco Use Types Packs/Day Years [...] this encounter Miscellaneous Notes Telephone Encounter - Anish Chavez - 06/10/2017 12:59 PM CST Diabetes Education Scheduling Outreach #1: Call to patient to schedule. Invalid phone number. Plan for 2nd outreach attempt within 1 week. Anish Chavez [facility] Scheduling ANALYST documented in this encounter Plan of Treatment Upcoming Encounters Date Type Specialty Care Team Description 06/16/2022 Virtual Visit Endocrinology Gilberto Weathers MD [address] [place] [address] Ky Marcos MD [address] [facility] [place] [address] documented as of this encounter Visit Diagnoses Not on filedocumented in this encounter Additional Health Concerns Infection Onset Date Last Indicated Resolved Time Rule Out COVID-19 05/12/2021 05/12/2021 05/12/2021 12: 08 PM PACE ANALYST COVID-19 05/12/2021 05/12/2021 06/02/2021 11:39 PM PACE ANALYST Rule Out COVID-19 06/10/2021 06/10/2021 06/10/2021 6:5 7 PM PACE ANALYST Rule Out COVID-19 10/28/2021 10/28/2021 10/29/2021 11: 41 AM CDT documented as of this encounter Care Teams Inside Sales Representative Relationship Specialty Start Date End Date Gilberto Weathers, PCP - General Internal Medicine 01/13/16 MD [address] [place] [address] Abbie Molina, PCP - Assigned PCP 06/06/17 [facility] UNIT NURSE BROKE BEATER [address] [place] [address] Gilberto Weathers, PCP - Assigned PCP 06/05/1807/26/18 MD [address] [place] [address] Gilberto Weathers, Assigned PCP 06/05/18 03/18/19 MD [address] [place] [address] Kiki Acevedo Pharmacist Pharmacist 11/08/18 04/29/21 [place] [facility] [address] [facility] [address] [place] [address] Mariah Mcmanus, Pharmacist Pharmacist 12/01/18 01/04/19 [facility] [address] [facility] [address] [place] [address] Nancy Martin, Assigned PCP 03/19/19 03/16/20 CAR HEAD LINER INSTALLER [address] [place] [address] Du Serrano MD Assigned PCP 03/17/20 03/30/[address] [place] [id number] Nancy Martin, Assigned PCP 03/31/20 12/14/20 CAR HEAD LINER INSTALLER [address] [place] [address] [place], Assigned PCP 12/15/20 01/04/21 Sheila Hawthorne MD [address] [place], [place] [address] Finn Harris MD Endocrinology, 12/23/20 MD [place] [facility] Met[facility] Wanda Bautista MD MD Ophthalmology 12/31/[address] [place] [id number] Gilberto Weathers, Assigned PCP 01/05/21 [address] [place], [place] [address] Finn Harris Assigned Endocrinology 02/09/21 MD [place] Provider NO INFO AVAILABLE Wanda Bautista MD Assigned Surgical 02/02/[address] [place] [address] Provider [place], [place] [address] Mariah Mcmanus, Assigned MTM Pharmacist 10/18/21 02/06/22 [facility] [address] [facility] [address] [place], [place] [address] Sarah Castañeda, Pharmacist 02/03/22 02/23/22 [facility] [address] [place] [address] Mariah Mcmanus, Assigned MTM Pharmacist 02/18/22 [facility] [address] [facility] [address] [place] [address] Ky Marcos MD Physician Endocrinology, 02/20/22 [address] [place] [facility], [place] [address] documented as of this encounter
--- OUTSIDE RECORDS SUMMARY | 2022-03-05 03:57 | XMS_ITS | Encounter Summary ---
:1985 Author Organization [place] Address [facility] [place] [address] Care Team Providers Name Role Phone Gilberto Weathers MD Primary Care Provider Gilberto Weathers MD Unavailable Kiki Acevedo [facility] Unavailable [phone] Encounter Details Date Type Department Care Team Description 03/13/2019 Travel Social History Tobacco Use Types Packs/Day [...] Endocrinology Gilberto Weathers MD [address] [place] [address] Ky Marcos MD [address] [place] [address] documented as of this encounter Visit Diagnoses Not on filedocumented in this encounter Care Teams Hoop Maker Relationship Specialty Start Date End Date Gilberto Weathers MD PCP - General Internal Medicine 01/13/16 [address] [place] [address] Gilberto Weathers MD Assigned PCP 06/05/18 03/18/19 [address] [place] [address] Kiki Acevedo [facility] Pharmacist Pharmacist 11/08/18 04/29/21 [facility] [address] [address] documented as of this encounter
--- OUTSIDE RECORDS SUMMARY | 2022-03-05 03:57 | XMS_ITS | Encounter Summary ---
:1985 Author Organization [place] Address [address] [facility] [place] [address] Care Team Providers Name Role Phone Gilberto Weathers MD Primary Care Provider Abbie Molina APRN CUSTOMER PROGRAM MANAGER Unavailable [phone] Reason for Visit Reason Comments Medication Therapy Management Encounter Details Date Type Department Care Team Description 06/07/2017 Office Visit [facility] Mariah Mcmanus Uncon trolled type 2 diabetes mellitus without complication, without long-term current use of insulin (H) (Primary Dx); Clinic [facility] Hyperlipidemia LDL goal <100; [address] [facility] Heart rn; [facility] [address] Seasonal allergic rhinitis, unspecified chronicity, unspecified trigger [address] [place] [phone] Social History Tobacco Use Types Packs/Day Years [...] Sign Reading Time Taken Comments Blood Pressure 112/70 06/07/2017 2:29 PM DIPLOMATIC OFFICER Pulse 70 06/07/2017 2:29 PM DIPLOMATIC OFFICER Temperature - - Respiratory Rate - - Oxygen Saturation - - Inhaled Oxygen Concentration - - Weight 93.2 kg (205 lb 6.4 oz) 06/07/2017 2:29 PM DIPLOMATIC OFFICER Height - - Body Mass Index 30.33 06/01/2017 10:49 AM DIPLOMATIC OFFICER documented in this encounter Patient Instructions Patient InstructionsHarriett Potts, [facility] - 06/07/2017 12:30 PM DIPLOMATIC OFFICER Recommendations from today's MTM visit: MTM (medication therapy management) is a service provided by a clinical pharmacist designed to help you get the most of out of your medicines. Today we reviewed what your medicines are for, how to know if they are working, that your medicines are safe and how to make your medicine regimen as easy as possible. 1. Take omeprazole 20 mg once daily 30-60 minutes before breakfast. 2. Take metformin 1000 mg tablet with breakfast and dinner. Start by taking metformin 1000 mg once daily for 1 week, then can increase to 1000 mg twice daily if tolerating. 3. Take Lantus 14 units nightly at bedtime for at least 3 days. You can increase Lantus by 2 units every 3 days until your AM blood sugars are less than 150 mg/dL. 4. Test blood sugar in the morning before breakfast and 2 hours after your largest meal. If feeling anxious, dizzy, sweaty --> test your blood sugar. 5. Stick to 60-75 grams of carbohydrates for each meal and 15-30 carbohydrates for snacks. Site to help count carbohydrates: [email or web address] Next MTM visit: 2 weeks To schedule another MTM appointment, please call the clinic directly or you may call the MTM scheduling line at [phone] or toll-free at . My Clinical Pharmacist's contact information: It was a pleasure seeing you today! Please feel free to contact me with any questions or concerns you have. Harriett Mi, PharmD Pharmaceutical Care Resident Pager: You may receive a survey about the MT services you received. I would appreciate your feedback to help me serve you better in the future. Please fill it out and return it when you can. Your comments will be anonymous. OMATIC OFFICER documented in this encounter Progress Notes Mariah Mcmanus, [facility] - 06/07/2017 12:30 PM CST SUBJECTIVE/OBJECTIVE: Ana Mcgowan is a 32 year old male coming in for an initial visit for Medication Therapy Management. He was referred to me from Abbie Das. Chief Complaint: Doesn't know how to use Lantus or other medications. Allergies/ADRs: Reviewed in [facility] Tobacco: 0-1 pack per day - is interested in quitting,Would like to talk about diabetes at this encounter and discuss smoking cessation at next encounter. Alcohol: none Caffeine: 1-2 cups/day of coffee Activity: Likes to run and use treadmill a couple times a week PMH: Reviewed in [facility] Medication Adherence/Access The patient misses their medication 3-4 times per week. Patient is responsible for his/her own medications. Adherence/Compliance is described as fair . Medication barriers: doesn't understand how to use his medications/Lantus. The patient fills general medications at [facility]. Diabetes: Pt currently none. Has not started metformin or Lantus. Was prescribed medications 06/02, but didn't know how to start so hasn't used yet. 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 He is wondering what he can do to manage diabetes to get him off of insulin. SMBG: none. He has not tested blood sugar in a long time. Tested blood sugar in room AM (fasting): 227 Patient is not experiencing hypoglycemia Recent symptoms of high blood sugar? Polyphagia, polyuria, polydipsia Eye exam: due Foot exam: due Microalbumin is < 30 mg/g. Pt is not taking an ACEi/ARB. Aspirin: Not taking due to age Diet: wakes up at 12 noon - Breakfast: coffee, bread, cereal. Lunch/Dinner: rice, pasta, meat (chicken), vegetables. Doesn't know the serving size of any of the foods, but knows it is probably too manycarbohydrates. Has recently (over last week) cut out regular soda from his diet. Exercise: runs/walks on treadmill a couple times/week Lab Results Component Value Date A1C 11.9 06/01/2017 A1C 10.4 12/10/2016 A1C 6.6 03/17/2016 A1C 6.1 01/13/2016 A1C 6.6 02/01/2015 Hyperlipidemia: Current therapy includes none. Hasn't started atorvastatin 20mg once daily. Was prescribed medication 06/02. 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 Heartburn: Current medications include: none. Was given Prilosec (omeprazole) 20 once daily for heartburn. Pt c/o heartburn, abdominal bloating. Happens after he eats certain meals, but can't recognizespecific foods. Unknown if it is effective because haven't started medication yet. Allergic rhinitis: Current medications include fluticasone nasal spray 1-2 spray(s) once daily. Primary symptoms are nasal congestion, runny nose, sneezing. Pt feels that current therapy is effective. Finds that symptoms are better in the winter, but are still around. Current labs include: BP Readings from Last 3 Encounters: 06/07/17 112/70 06/01/17 102/68 12/10/16 118/68 Today's Vitals: BP 112/70 (BP Location: Right arm, Patient Position: Right side) Pulse 70 Wt 205lb 6.4 oz (93.2 kg) BMI 30.33 kg/m2 Lab Results Component Value Date A1C 11.9 06/01/2017 . Lab Results Component Value Date CHOL 208 06/01/2017 Lab Results Component Value Date TRIG 178 06/01/2017 Lab Results Component Value Date HDL 43 06/01/2017 Lab Results Component Value Date LDL 129 06/01/2017 Liver Function Studies - Recent Labs Lab Test 06/01/17 1114 PROTTOTAL 6.9 ALBUMIN 3.5 BILITOTAL 0.5 ALKPHOS 126 AST 13 ALT 24 Lab Results Component Value Date UCRR 676 06/01/2017 MICROL 37 06/01/2017 UMALCR 5.50 06/01/2017 Last Basic Metabolic Panel: Lab Results Component Value Date NA 134 06/01/2017 Lab Results Component Value Date POTASSIUM 3.9 06/01/2017 Lab Results Component Value Date CHLORIDE 99 06/01/2017 Lab Results Component Value Date BUN 9 06/01/2017 Lab Results Component Value Date CR 0.68 06/01/2017 GFR Estimate Date Value Ref Range Status 06/01/2017 >90 >60 mL/min/1.7m2 Final Comment: Non GFR Calc 12/10/2016 >90 Non GFR Calc >60 mL/min/1.7m2 Final 12/24/2015 >90 Non GFR Calc >60 mL/min/1.7m2 Final GFR Estimate If Black Date Value Ref Range Status 06/01/2017 >90 >60 mL/min/1.7m2 Final Comment: GFR Calc 12/10/2016 >90 GFR Calc >60 mL/min/1.7m2 Final 12/24/2015 >90 GFR Calc >60 mL/min/1.7m2 Final TSH Date Value Ref Range Status 06/01/2017 1.98 0.40 - 4.00 mU/L Final Most Recent Immunizations Administered Date(s) Administered ??? TDAP Vaccine (Adacel) 03/17/2016 ??? Tdap (Adacel,Boostrix) 07/03/1999 ASSESSMENT: Current medications were reviewed today. Medication Adherence: no issues identified Diabetes: Needs Improvement. Patient is not meeting A1c goal of < 7%. Self monitoring of blood glucose is not at goal of fasting 80-130 mg/dL. Much of this visit was spent on education regarding diet modifications (60-75 carbohydrates/meal and 15-30 grams carbohydrates/snack), how and when to test b lood sugar, and Lantus administration. Pt would benefit from minimum SMBG: Check blood sugars fasting, and occasionally 2 hours after starting a meal. Since patient has not started Lantus or metformin,patient would benefit from initiation of these medications. Since patient has not started metformin and should be titrated slowly to prevent GI side effects, recommended patient start by taking metformin 1000 mg once daily for 1 week, then increase to metformin 1000 mg BID. Aspirin therapy is not indicated in this patient due to age. Patient would also benefit from Diabetes Education - will discuss at next encounter. Hyperlipidemia: Needs improvement. Patient would benefit from starting atorvastatin. Heartburn: Needs improvement. Patient would benefit from starting medication. Allergic rhinitis: Stable PLAN: 1. Patient to start omeprazole 20 mg once daily 30-60 minutes before breakfast. 2. Patient to start metformin 1000 mg tablet with breakfast and dinner. Start by taking metformin 1000 mg once daily for 1 week, then increase to 1000 mg twice daily. 3. Patient to start Lantus 14 units nightly at bedtime for at least 3 days. Can increase Lantus by 2units every 3 days until your AM blood sugars are less than 150 mg/dL. 4. Patient to test blood sugar in the morning before breakfast and 2 hours after largest meal. If feeling anxious, dizzy, sweaty --> test blood sugar. 5. Patient to stick to 60-75 grams of carbohydrates for each meal and 15-30 carbohydrates for snacks. 6. Recommend patient follow up with Diabetes education - will discuss at next encounter. I spent 60 minutes with this patient today. I offer these suggestions for consideration by the PCP. A copy of the visit note was provided to the patient's primary care provider. Will follow up in 2 weeks. The patient was given a summary of these recommendations as an after visit summary. I concur with the note as dictated above which reflects our joint assessment and plan. Mariah Mcmanus, PharmD Harriett Mi, PharmD Pharmaceutical Care Resident Pager: OMATIC OFFICER documented in this encounter Plan of Treatment Upcoming Encounters Date Type Specialty Care Team Description 06/16/2022 Virtual Visit Endocrinology Gilberto Weathers MD [address] [facility] [place] [address] Ky Marcos MD [address] [place] [address] documented as of this encounter Visit Diagnoses Diagnosis Uncontrolled type 2 diabetes mellitus wi thout complication, without long-term current use of insulin - Primary Hyperlipidemia LDL goal <100 Other and unspecified hyperlipidemia Heartburn Seasonal allergic rhinitis, unspecified chronicity, unspecified trigger documented in this encounter Care Teams Field Professional Relationship Specialty Start Date End Date Gilberto Weathers MD PCP - General Internal Medicine 01/13/16 [address] [place], [place] [address] Abbie Molina APRN PCP - Assigned PCP 06/06/17 06/04/18 [facility] [address] [place], [place] [address] documented as of this encounter
--- OUTSIDE RECORDS SUMMARY | 2022-03-05 03:57 | XMS_ITS | Encounter Summary ---
:1985 Author Organization [place] Address [address] [place] [address] Care Team Providers Name Role Phone Gilberto Weathers MD Primary Care Provider Gilberto Weathers MD Unavailable Reason for Visit Reason Comments Medication Refill metFORMIN (GLUCOPHAGE) 1000 MG Encounter Details Date Type Department Care Team Description 10/31/2018 Refill [facility] Gilberto Weathers, Med ication Refill Clinic [facility] (metFORMIN (GLUCOPHAGE) [address] 1000 MG) [place] [address] [address] [place] [address] Social History Tobacco Use Types [...] Telephone Encounter - Mervat Beckman RN - 11/01/2018 2:38 PM CDT Routing refill request to provider for review/approval because: Labs not current: Patient needs to be seen because it has been more than 1 year since last office visit. Blood pressure Last office visit was 06/01/17- should be seen every 6 month for diabetes. Telephone Encounter - Xochitl Austin H - 10/31/2018 5:04 PM CDT Requested Prescriptions Pending Prescriptions Disp Refills ??? metFORMIN (GLUCOPHAGE) 1000 MG tablet [Pharmacy Med Name: METFORMIN Last Written Prescription Date: 08/31/2017 Last Fill Quantity: 180, # refills: 1 Last office visit: 06/01/2017 with prescribing provider: Future Office Visit: 1000MG TABLETS] 180 tablet 0 Sig: TAKE 1 TABLET(1000 MG) BY MOUTH TWICE DAILY WITH MEALS Biguanide Agents Failed - 10/31/2018 3:25 PM Failed - Blood pressure less than 140/90 in past 6 months BP Readings from Last 3 Encounters: 08/31/17 112/72 06/21/17 114/68 06/07/17 112/70 Failed - Patient has documented LDL within the past 12 mos. Recent Labs Lab Test 06/01/17 1114 LDL 129* Failed - Patient has had a Microalbumin in the past 15 mos. Recent Labs Lab Test 06/01/17 1115 MICROL 37 UMALCR 5.50 Failed - Patient has documented A1c within the specified period of time. If HgbA1C is 8 or greater, it needs to be on file within the past 3 months. If less than 8, must beon file within the past 6 months. Recent Labs Lab Test 09/03/17 1241 A1C 7.4* Failed - Patient's CR is NOT>1.4 OR Patient's EGFR is NOT<45 within past 12 mos. Recent Labs Lab Test 06/01/17 1114 GFRESTIMATED >90 GFRESTBLACK >90 Recent Labs Lab Test 06/01/17 1114 CR 0.68 Failed - Recent (6 mo) or future (30 days) visit within the authorizing provider's specialty Patient had office visit in the last 6 months or has a visit in the next 30 days with authorizing provider or within the authorizing provider's specialty. See Patient Info tab in inbasket, or Choose Columns in Meds & Orders section of the refill encounter. Passed - Patient is age 10 or older Passed - Patient does NOT have a diagnosis of CHF. Passed - Medication is active on med list documented in this encounter Plan of Treatment Upcoming Encounters Date Type Specialty Care Team Description 06/16/2022 Virtual Visit Endocrinology Gilberto Weathers MD [address] [place], [place] [address] Ky Marcos MD [address] [place], [place] [id number] documented as of this encounter Visit Diagnoses Diagnosis Uncontrolled type 2 diabetes mellitus wi thout complication, without long-term current use of insulin documented in this encounter Care Teams Greenhouse Staff Relationship Specialty Start Date End Date Gilberto Weathers MD PCP - General Internal Medicine 01/13/16 [address] [place] [address] Gilberto Weathers MD Assigned PCP 06/05/18 03/18/19 [address] [place] [address] documented as of this encounter
--- OUTSIDE RECORDS SUMMARY | 2022-03-05 03:57 | XMS_ITS | Encounter Summary ---
:1985 Author Organization [place] Address [facility] [place] [address] Care Team Providers Name Role Phone Gilberto Weathers MD Primary Care Provider Gilberto Weathers MD Unavailable Kiki Acevedo [facility] Unavailable [phone] Encounter Details Date Type Department Care Team Description 11/28/2018 Travel Social History Tobacco Use Types Packs/Day [...] Endocrinology Gilberto Weathers MD [address] [place] [address] Ky Marcos MD [address] [place] [address] documented as of this encounter Visit Diagnoses Not on filedocumented in this encounter Care Teams Heavy Machinery Assembler Relationship Specialty Start Date End Date Gilberto Weathers MD PCP - General Internal Medicine 01/13/16 [address] [place] [address] Gilberto Weathers MD Assigned PCP 06/05/18 03/18/19 [address] [place] [address] Kiki Acevedo [facility] Pharmacist Pharmacist 11/08/18 04/29/21 [facility] [address] [address] documented as of this encounter
--- OUTSIDE RECORDS SUMMARY | 2022-03-05 03:57 | XMS_ITS | Encounter Summary ---
:1985 Author Organization [place] Address [facility] [place] [address] Care Team Providers Name Role Phone Gilberto Weathers MD Primary Care Provider Gilberto Weathers MD Unavailable Encounter Details Date Type Department Care Team Description 11/04/2018 Travel Social History Tobacco Use Types Packs/Day [...] Endocrinology Gilberto Weathers MD [address] [place] [address] Ky Marcos MD [address] [place] [address] documented as of this encounter Visit Diagnoses Not on filedocumented in this encounter Care Teams Mutual Fund Accountant Relationship Specialty Start Date End Date Gilberto Weathers MD PCP - General Internal Medicine 01/13/16 [address] [place], [place] [address] Gilberto Weathers MD Assigned PCP 06/05/18 03/18/19 [address] [place], [place] [id number] documented as of this encounter
--- OUTSIDE RECORDS SUMMARY | 2022-03-05 03:57 | XMS_ITS | Encounter Summary ---
:1985 Author Organization [place] Address [facility] [place] [address] Care Team Providers Name Role Phone Gilberto Weathers MD Primary Care Provider Abbie Molina APRN TAFFY CANDY MAKER Unavailable [phone] Reason for Visit Reason Onset Date Comments Appointment 07/26/2017 [facility] follow-up appt Encounter Details Date Type Department Care Team Description [facility] [place] [facility] follow-up appt ) [address] [address] [place] [address] Social History Tobacco Use Types Packs/Day Years [...] this encounter Miscellaneous Notes Telephone Encounter - Harriett Potts RPH - 07/26/2017 10:32 AM AGRICULTURAL SCIENTIST Calling to reschedule missed MTM follow-up appt 07/19/17. Patient did not answer. Left VM and CB#. Harriett Mi, PharmD Pharmaceutical Care Resident Pager: CULTURAL SCIENTIST documented in this encounter Plan of Treatment Upcoming Encounters Date Type Specialty Care Team Description 06/16/2022 Virtual Visit Endocrinology Gilberto Weathers MD [address] [facility] [place], [place] [address] Ky Marcos MD [address] [place], [place] [phone] documented as of this encounter Visit Diagnoses Not on filedocumented in this encounter Care Teams Software Systems Engineer Relationship Specialty Start Date End Date Gilberto Weathers MD PCP - General Internal Medicine 01/13/16 [address] [place], [place] [address] Abbie Molina APRN PCP - Assigned PCP 06/06/17 06/04/18 TAFFY CANDY MAKER [address] [place], [place] [address] documented as of this encounter
--- OUTSIDE RECORDS SUMMARY | 2022-03-05 03:57 | XMS_ITS | Encounter Summary ---
:1985 Author Organization [place] Address [address] [facility] [place] [address] Care Team Providers Name Role Phone Gilberto Weathers MD Primary Care Provider Abbie Molina APRN SUPPORT DBA Unavailable [phone] Encounter Details Date Type Department Care Team Description 09/03/2017 [facility] Only [facility] Unc ontrolled type 2 [place] [facility] diabetes mellitus without [address] complication, [place] [address] long-term current use of [phone] insulin (H) Social History Tobacco Use Types Packs/Day Years [...] Visit Endocrinology Gilberto Weathers MD [address] [place], [place] [address] Ky Marcos MD [address] [place] [address] documented as of this encounter Procedures Procedure Name Priority Date/Time Associated Diagnosis Comme nts HEMOGLOBIN A1C Routine 09/03/2017 12:41 PM Uncontrolled type 2 Results for this CDT diabetes mellitus procedure are in without complication, the re sults without long-term section. current use of insulin (H) documented in this encounter Results (ABNORMAL) Hemoglobin A1c (09/03/2017 12:41 PM CDT) Analysis Performed At Patho logist Time Signature Hemoglobin A1C 7.4 (H) 0 - 5.6 % 09/03/2017 [place] 1:30 PM CDT [facility] Comment: Normal <5.7% Prediabetes 5.7-6.4% ??Diab etes 6.5% or higher - adopted from ADA consensus guidelines. Results confirmed by repeat test Specimen Anatomical Collection Method Collection Time Receive d Time (Source) Location / / Volume Laterality Blood specimen 09/03/2017 12:41 8 (specimen) PM CDT 12:46 PM CDT Gilberto Weathers MD LAB - BLOOD ORDERABLES Performing Organization Address City/State/ZIP Code Phon e Number [facility] [address] [place], [place] [address] [address] documented in this encounter Visit Diagnoses Diagnosis Uncontrolled type 2 diabetes mellitus wi thout complication, without long-term current use of insulin documented in this encounter Care Teams Parachute Crown Sewer Relationship Specialty Start Date End Date Gilberto Weathers MD PCP - General Internal Medicine 01/13/16 [address] [place], [place] [address] Abbie Molina APRN PCP - Assigned PCP 06/06/17 06/04/18 SUPPORT DBA [address] [place], [place] [id number] documented as of this encounter
--- OUTSIDE RECORDS SUMMARY | 2022-03-05 03:57 | XMS_ITS | Encounter Summary ---
:1985 Author Organization [place] Address [facility] 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 right (Primary Dx) [address] [place] [address] [place] [address] [place], [place] [id number] (Wo rk) Social History Tobacco Use Types [...] Sign Reading Time Taken Comments Blood Pressure 118/82 03/13/2019 11:33 AM CDT Pulse 86 03/13/2019 11:33 AM CDT Temperature 36.9 ??C (98.4 ??F) 03/13/2019 11:33 AM CDT Respiratory Rate 18 03/13/2019 11:33 AM CDT Oxygen Saturation 99% 03/13/2019 11:33 AM CDT Inhaled Oxygen Concentration - - Weight 95.3 kg (210 lb) 03/13/2019 11:33 AM CDT Height - - Body Mass Index 31.93 11/03/2018 9:21 AM CDT documented in this encounter Progress Notes Nancy Martin SUPERVISOR SLASHING DEPARTMENT - 03/13/2019 11:30 AM CDT Subjective Ana Mcgowan is a 33 year old male who presents to clinic today for the following health issues: HPI Musculoskeletal problem/pain ?? Duration: 03/05/2019 ?? Description Location: R hand Middle finger jammed at work - finger got stuck on a wheel of a bag (luggage) The pain was mild initially, but he was off for a few days after the injury. When he returned to work and tried to lift something, the pain was severe. ?? Intensity: severe ?? Accompanying signs and symptoms: none ?? History Previous similar problem: YES Previous evaluation: x-ray on 03/11/2019 ?? Precipitating or alleviating factors: Trauma or overuse: YES- work comp Aggravating factors include: putting any pressure on the area. 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 Patient is a 33-year-old male who presents with finger pain. He is neurovascularly intact on arrival. There is no overlying signs to suggest cellulitis, flexor tenosynovitis or septic joint to the digit. X-ray without focal fracture or dislocation. I did discuss with patient he might have a mild tendonitis. He was placed in extension with rafael tape for comfort. I recommended NSAIDs and to follow-up with PCP closely. Return to ED for fever, increasing pain or should symptoms worsen/change to represent to the ED. Discussed should his symptoms persist he may need ortho f/u. ? Therapies tried and outcome: ibuprofen PRN and ice Over the past couple of days, he has noticed more redness and tenderness of the tip of his finger. He denies any drainage or fevers. Reviewed and updated as needed this visit by Provider Review of Systems ROS COMP: CONSTITUTIONAL: NEGATIVE for fever, chills, change in weight INTEGUMENTARY/SKIN: see HPI ENT/MOUTH: NEGATIVE for ear, mouth and throat problems RESP: NEGATIVE for significant cough or SOB CV: NEGATIVE for chest pain, palpitations or peripheral edema MUSCULOSKELETAL: see HPI NEURO: NEGATIVE for weakness, dizziness or paresthesias Objective BP 118/82 Pulse 86 Temp 98.4 ??F (36.9 ??C) (Oral) Resp 18 Wt 95.3 kg (210 lb) SpO2 99% BMI 31.93 kg/m?? Body mass index is 31.93 kg/m??. Physical Exam GENERAL: healthy, alert and no distress MS: minimal edema distal end of right middle finger; no joint effusion or tenderness SKIN: erythema of the medial aspect of right middle finger extending into finger pad; tenderness is greatest along the medial edge of nailbed NEURO: Normal strength and tone, mentation intact and speech normal Assessment & Plan 1. Paronychia of finger, right Discussed soaking finger in warm soapy water 3-4 times a day. Will start on Keflex. Report of Workability form completed. He is currently on his days off and is scheduled to RTW on afternoon. I will see him that morning to assess his ability to return to work. - cephALEXin (KEFLEX) 500 MG capsule; Take 1 capsule (500 mg) by mouth 3 times daily for 10 days Dispense: 30 capsule; Refill: 0 Tobacco Cessation: reports that he has been smoking. He has a 1.25 pack-year smoking history. He has never used smokeless tobacco. Tobacco Cessation Action Plan: Information offered: Patient not interested at this time BMI: Estimated body mass index is 31.93 kg/m?? as calculated from the following: Height as of 11/03/18: 1.727 m (5' 8). Weight as of this encounter: 95.3 kg (210 lb). Weight management plan: Discussed healthy diet and exercise guidelines No follow-ups on file. Nancy Martin NP [facility] documented in this encounter Plan of Treatment Upcoming Encounters Date Type Specialty Care Team Description 06/16/2022 Virtual Visit Endocrinology Gilberto Weathers MD [address] [place], [place] [address] Ky Marcos MD [address] [place], [place] [phone] documented as of this encounter Visit Diagnoses Diagnosis Paronychia of finger, right - Primary documented in this encounter Care Teams Card Placer Relationship Specialty Start Date End Date Gilberto Weathers MD PCP - General Internal Medicine 01/13/16 [address] [place], [place] [address] Gilberto Weathers MD Assigned PCP 06/05/18 03/18/19 [address] [place], [place] [address] Kiki Acevedo [facility] Pharmacist Pharmacist 11/08/18 04/29/21 [facility] [address] [address] documented as of this encounter
--- OUTSIDE RECORDS SUMMARY | 2022-03-05 03:57 | XMS_ITS | Encounter Summary ---
:1985 Author Organization [place] Address [address] [place] [address] Care Team Providers Name Role Phone Gilberto Weathers MD Primary Care Provider Gilberto Weathers MD Unavailable Kiki Acevedo [facility] Unavailable [phone] Reason for Visit Reason Onset Date Comments No Show 11/08/2018 [facility] Encounter Details Date Type Department Care Team Description 11/08/2018 [facility] Kiki Acevedo, No Show ([place]) [facility] [address] [place] [address] [place], [place] [phone] [place] [address] Social History Tobacco Use Types Packs/Day Years [...] this encounter Miscellaneous Notes Telephone Encounter - Kiki Acevedo [facility] - 11/08/2018 1:54 PM CDT Called to follow-up on diabetes and missed MTM appointment today. Phone rang straight to , left message. Sent message to usual MTM pharmacist to notify of no show Kiki Acevedo, PharmD, BCACP documented in this encounter Plan of Treatment Upcoming Encounters Date Type Specialty Care Team Description 06/16/2022 Virtual Visit Endocrinology Gilberto Weathers MD [address] [place], [place] [phone] Ky Marcos MD [address] [place] [address] documented as of this encounter Visit Diagnoses Not on filedocumented in this encounter Care Teams Sql Developer Relationship Specialty Start Date End Date Gilberto Weathers MD PCP - General Internal Medicine 01/13/16 [address] [place], [place] [address] Gilberto Weathers MD Assigned PCP 06/05/18 03/18/19 [address] [place], [place] [address] Kiki Acevedo [facility] Pharmacist Pharmacist 11/08/18 04/29/[address] [address] documented as of this encounter
--- OUTSIDE RECORDS SUMMARY | 2022-03-05 03:57 | XMS_ITS | Encounter Summary ---
:1985 Author Organization [place] Address [facility] [place] [address] Care Team Providers Name Role Phone Gilberto Weathers MD Primary Care Provider Gilberto Weathers MD Unavailable Encounter Details Date Type Department Care Team Description 11/04/2018 Orders Only [facility] Unc ontrolled type 2 [place] [facility] diabetes mellitus without [address] complication, [place] [address] long-term current use of [phone] insulin (H) Social History Tobacco Use Types [...] Endocrinology Gilberto Weathers MD [address] [place] [address] Ky Marcos MD [address] [place] [id number] documented as of this encounter Procedures Procedure Name Priority Date/Time Associated Diagnosis Comme nts LIPID REFLEX TO DIRECT Routine 11/04/2018 2:51 Uncontrolled ty pe 2 Results for this LDL PANEL PM CDT diabetes mellitus procedure are in without the results complication, section. without long-term current use of insulin (H) HEMOGLOBIN A1C Routine 11/04/2018 2:51 Uncontrolled type 2 Res ults for this PM CDT diabetes mellitus procedure are in without the results complication, section. without long-term current use of insulin (H) COMPREHENSIVE Routine 11/04/2018 2:51 Uncontrolled type 2 Resu lts for this METABOLIC PANEL PM CDT diabetes mellitus procedu re are in without the results complication, section. without long-term current use of insulin (H) documented in this encounter Results (ABNORMAL) Lipid panel reflex to direct LDL Fasting (11/04/2018 2:51 PM CDT) athologist Signature Cholesterol 213 (H) <200 mg/dL 11/04/2018 KENEF[place] 7:51 PM [facility] Comment: Desirable: <200 mg/dl Triglycerides 148 <150 mg/dL 11/04/2018 8:01 PM [facility] Comment: Fasting specimen HDL Cholesterol 40 >39 mg/dL 11/04/2018 7:[address] [facility] LDL Cholesterol 143 (H) <100 mg/dL 11/04/2018 8:01 PM [facility] Comment: Above desirable: ??100-129 mg/dl Borderline High: ??130-159 mg/dL High: ? 160-189 mg/dL Very high: ? >189 mg/dl Non HDL Cholesterol 173 (H) <130 mg/dL 11/04/2018 7:51 PM [facility] Comment: Above Desirable: ??130-159 mg/dl Borderline high: ??160-189 mg/dl High: ? 190-219 mg/dl Very high: ? >219 mg/dl Specimen Anatomical Collection Method Collection Time Receive d Time (Source) Location / / Volume Laterality Blood specimen 11/04/2018 2:51 PM 019 2:56 (specimen) CDT PM CDT Conner Vail MD LAB - BLOOD ORDERABLES Performing Organization Address City/State/ZIP Code Phon e Number M [facility] [address] [place] [address] [facility] [address] [place] [address], [place] [phone] [facility] [address] [place], [place] [address] [place] (ABNORMAL) Comprehensive metabolic panel (11/04/2018 2:51 PM CDT) Analysis Performed At Path logist Time Signature Sodium 136 133 - 144 11/04/2018 KENEFIC mmol/L 7:24 PM CDT [facility] Potassium 4.1 3.4 - 5.3 11/04/2018 KENEF[place] mmol/L 7:24 PM CDT [facility] Chloride 105 94 - 109 11/04/2018 KENEF[place] mmol/L 7:24 PM CDT [facility] Carbon Dioxide 23 20 - 32 11/04/2018 KENEFIC mmol/L 7:45 PM CDT [facility] Anion Gap 8 3 - 14 11/04/2018 KEN[place] mmol/L 7:45 PM CDT [facility] Glucose 288 (H) 70 - 99 11/04/2018 KENEFIC mg/dL 7:45 PM CDT [facility] Comment: Fasting specimen Urea Nitrogen 12 7 - 30 mg/dL 11/04/2018 7:45 PM CDT [facility] Creatinine 0.70 0.66 - 1.25 mg/dL 11/04/2018 7:45 PM CD T [facility] GFR Estimate >90 >60 11/04/2018 7:45 PM CDT [facility] mL/min/{1.73_m2} [place] Comment: Non GFR Calc Starting 05/10/2018, serum creatinine ba sed estimated GFR (eGFR) will be calculated using the Chronic Kidney Dise [facility] Epidemiology Collaboration (CKD-EPI) equation. GFR Estimate If >90 >60 mL/min/{1.73_m2} 11/04/2018 7: 45 PM [facility] Black CDT [facility] Comment: GFR Calc Starting 05/10/2018, serum creatinine ba sed estimated GFR (eGFR) will be calculated using the Chronic Kidney Dise [facility] Epidemiology Collaboration (CKD-EPI) equation. Calcium 8.6 8.5 - 10.1 11/04/2018 7:45 PM [place] mg/dL T [facility] Bilirubin Total 0.5 0.2 - 1.3 11/04/2018 7:51 PM [facility] [place] mg/dL T HOSPITAL Albumin 3.5 3.4 - 5.0 g/dL 11/04/2018 7:51 PM [facility] Protein Total 6.6 (L) 6.8 - 8.8 g/dL 11/04/2018 7:51 PM [facility] Alkaline Phosphatase 113 40 - 150 U/L 11/04/2018 7:51 PM [facility] ALT 28 0 - 70 U/L 11/04/2018 7:51 PM [facility] AST 14 0 - 45 U/L 11/04/2018 7:51 PM [facility] Specimen Anatomical Collection Method Collection Time Receive d Time (Source) Location / / Volume Laterality Blood specimen 11/04/2018 2:51 PM 019 2:56 (specimen) CDT PM CDT Conner Vail MD LAB - BLOOD ORDERABLES Performing Organization Address City/State/ZIP Code Phon e Number M [facility] [address] [address] [facility] [address] [place], [place] [address] [employer] [facility] [address] [place] [address], [place] [phone] (ABNORMAL) Hemoglobin A1c (11/04/2018 2:51 PM CDT) [facility] Method Time Signature Hemoglobin A1C 12.2 (H) 0 - 5.6 % 11/04/2018 KENEFIC 3:38 PM CDT [facility] Comment: Results confirmed by repeat test Normal <5.7% Prediabetes 5.7-6.4% ??Diab etes 6.5% or higher - adopted from ADA consensus guidelines. Specimen Anatomical Collection Method Collection Time Receive d Time (Source) Location / / Volume Laterality Blood specimen 11/04/2018 2:51 PM 019 2:56 (specimen) CDT PM CDT Conner Vail MD LAB - BLOOD ORDERABLES Performing Organization Address City/State/ZIP Code Phon e Number [facility] [address] [place], [place] [address] [address] documented in this encounter Visit Diagnoses Diagnosis Uncontrolled type 2 diabetes mellitus wi thout complication, without long-term current use of insulin documented in this encounter Care Teams Top Lift Scourer Relationship Specialty Start Date End Date Gilberto Weathers MD PCP - General Internal Medicine 01/13/16 [address] [place], [place] [address] Gilberto Weathers MD Assigned PCP 06/05/18 03/18/19 [address] [place] [address] documented as of this encounter
--- OUTSIDE RECORDS SUMMARY | 2022-03-05 03:57 | XMS_ITS | Encounter Summary ---
:1985 Author Organization [place] Address [address] [place] [address]. [place] [address] Care Team Providers Name Role Phone Gilberto Weathers MD Primary Care Provider Gilberto Weathers MD Unavailable Reason for Referral Patient Education (Routine) - Closed Specialty Diagnoses / Procedures Referred By Contact Refer red To Contact Diagnoses Uncontrolled type 2 diabetes mellitus without complication, without long-term current use of insulin Conner Vail MD [facility] [address] [place] [address] [place] [address] Phone: Referral ID Status Reason Start Date Expiration Date Visits Requ ested Visits Authorized [id number] Closed 11/03/2018 11/03/2019 1 1 Reason for Visit Reason Comments Physical Encounter Details Date Type Department Care Team Description 11/03/2018 Office Visit [facility] Conner Vail Rout ine history and physical examination of adult (Primary Dx); Clinic [facility] Uncontrolled type 2 diabetes mellitus wi thout complication, without long-term current use of insulin (H); [address] Slow transit constipation; [facility] Hyperlipidemia LDL goal <100; [place], [place] Tobacco use disorder; [id number] [place] [phone] Social History Tobacco Use Types Packs/Day Years [...] Sign Reading Time Taken Comments Blood Pressure 104/70 11/03/2018 9:21 AM CDT Pulse 119 11/03/2018 9:21 AM CDT Temperature 36.4 ??C (97.5 ??F) 11/03/2018 9:21 AM CDT Respiratory Rate 16 11/03/2018 9:21 AM CDT Oxygen Saturation 98% 11/03/2018 9:21 AM CDT Inhaled Oxygen Concentration - - Weight 93 kg (205 lb) 11/03/2018 9:21 AM CDT Height 172.7 cm (5' 8) 11/03/2018 9:21 AM CDT Body Mass Index 31.17 11/03/2018 9:21 AM CDT documented in this encounter Patient Instructions Patient InstructionsConner Vail MD - 11/03/2018 9:00 AM CDT Take prescribed medication as directed. Come in for a recheck in 1 month. documented in this encounter Progress Notes Conner Vail MD - 11/03/2018 9:00 AM CDT SUBJECTIVE: CC: Ana Mcgowan is an 33 year old male who presents for preventative health visit. Healthy Habits: Getting at least 3 servings of Calcium per day: Yes Bi-annual eye exam: NO Dental care twice a year: NO Sleep apnea or symptoms of sleep apnea: None Diet: Diabetic Frequency of exercise: None Taking medications regularly: Yes Medication side effects: None PHQ-2 Total Score: 0 Additional concerns today: No No diabetic meds X 6 months. Having dry mouth, nocturia. Patient Active Problem List Diagnosis ??? Sinus tachycardia ??? Chest pain ??? Episodic cluster headache, not intractable ??? Non morbid obesity due to excess calories ??? Uncontrolled type 2 diabetes mellitus without complication, without long- term current use of insulin (H) Today's PHQ-2 Score: PHQ-2 (??1998 Pfizer) 11/03/2018 Q1: Little interest or pleasure in doing things 0 Q2: Feeling down, depressed or hopeless 0 PHQ-2 Score 0 Q1: Little interest or pleasure in doing things Not at all Q2: Feeling down, depressed or hopeless Not at all PHQ-2 Score 0 Abuse: Current or Past(Physical, Sexual or Emotional)- No Do you feel safe in your environment? Yes Social History Tobacco Use ??? Smoking status: Current Every Day Smoker Packs/day: 0.25 Years: 5.00 Pack years: 1.25 ??? Smokeless tobacco: Never Used Substance Use Topics ??? Alcohol use: No Alcohol/week: 0.0 oz Alcohol Use 11/03/2018 Prescreen: >3 drinks/day or >7 drinks/week? Not Applicable Prescreen: >3 drinks/day or >7 drinks/week? - Last PSA: No results found for: PSA Reviewed orders with patient. 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 Reviewed and updated as needed this visit by Provider Review of Systems Constitutional: Positive for fever. Negative for chills. HENT: Positive for hearing loss. Negative for congestion, ear pain and sore throat. Eyes: Positive for pain. Negative for visual disturbance. Respiratory: Negative for cough and shortness of breath. Cardiovascular: Negative for chest pain, palpitations and peripheral edema. Gastrointestinal: Positive for heartburn. Negative for abdominal pain, constipation, diarrhea, hematochezia and nausea. Genitourinary: Positive for frequency. Negative for discharge, dysuria, genital sores, hematuria, impotence and urgency. Musculoskeletal: Positive for arthralgias and myalgias. Negative for joint swelling. Skin: Negative for rash. Neurological: Positive for dizziness and headaches. Negative for weakness and paresthesias. Psychiatric/Behavioral: Positive for mood changes. The patient is nervous/anxious. OBJECTIVE: BP 104/70 Pulse 119 Temp 97.5 ??F (36.4 ??C) (Oral) Resp 16 Ht 1.727 m (5' 8) Wt 93 kg (205 lb) SpO2 98% BMI 31.17 kg/m?? Physical Exam GENERAL: alert, no distress and over weight EYES: Eyes grossly normal to inspection, PERRL [...] and tone, mentation intact and speech normal PSYCH: mentation appears normal, affect normal/bright Diagnostic Test Results: Labs reviewed in Epic ASSESSMENT/PLAN: 1. Routine history and physical examination of adult 2. Uncontrolled type 2 diabetes mellitus without complication, without long-term current use of insulin (H) - metFORMIN (GLUCOPHAGE) 1000 MG tablet; TAKE 1 TABLET(1000 MG) BY MOUTH TWICE DAILY WITH MEALS Dispense: 60 tablet; Refill: 1 - SOFTWARE DEVELOPMENT PROJECT MANAGER REFERRAL - Comprehensive metabolic panel; Future - Lipid panel reflex to direct LDL Fasting; Future - Hemoglobin A1c; Future 3. Slow transit constipation - docusate sodium (COLACE) 100 MG capsule; Take 1 capsule (100 mg) by mouth 2 times daily Dispense: 60 capsule; Refill: 1 4. Hyperlipidemia LDL goal <100 - atorvastatin (LIPITOR) 20 MG tablet; Take 1 tablet (20 mg) by mouth daily Dispense: 30 tablet; Refill: 1 5. Tobacco use disorder 6. [place] - nystatin (MYCOSTATIN) [id number] UNIT/GM external cream; Apply topically 2 times daily Dispense: 15 g;Refill: 1 COUNSELING: Reviewed preventive health counseling, as reflected in patient instructions Regular exercise Healthy diet/nutrition Estimated body mass index is 30.48 kg/m?? as calculated from the following: Height as of 06/01/17: 1.753 m (5' 9). Weight as of 08/31/17: 93.6 kg (206 lb 6.4 oz). Weight management plan: diabetic diet, exer reports that he has been smoking. He has a 1.25 pack-year smoking history. He has never used smokeless tobacco. Vaping. Counseling Resources: ATP IV Guidelines Pooled Cohorts Equation Calculator FRAX Risk Assessment ICSI Preventive Guidelines Dietary Guidelines for Americans, 2009 [employer] MyPlate ASA Prophylaxis Lung CA Screening Conner Vail MD [facility] documented in this encounter Plan of Treatment Upcoming Encounters Date Type Specialty Care Team Description 06/16/2022 Virtual Visit Endocrinology Gilberto Weathers MD [address] [place] [address] Ky Marcos MD [address] [place] [address] documented as of this encounter Results (ABNORMAL) Hemoglobin A1c (11/04/2018 2:51 PM CDT) [facility] gist Method Time Signature Hemoglobin A1C 12.2 (H) 0 - 5.6 % 11/04/2018 [place] 3:38 PM CDT [facility] Comment: Results confirmed by repeat test Normal <5.7% Prediabetes 5.7-6.4% ??Diab etes 6.5% or higher - adopted from ADA consensus guidelines. Specimen Anatomical Collection Method Collection Time Receive d Time (Source) Location / / Volume Laterality Blood specimen 11/04/2018 2:51 PM 019 2:56 (specimen) CDT PM CDT Conner Vail MD LAB - BLOOD ORDERABLES Performing Organization Address City/State/ZIP Code Phon e Number [facility] [address] [place], [place] [address] [address] (ABNORMAL) Lipid panel reflex to direct LDL Fasting (11/04/2018 2:51 PM CDT) athologist Signature Cholesterol 213 (H) <200 mg/dL 11/04/2018 [place] 7:51 PM T [facility] Comment: Desirable: <200 mg/dl Triglycerides 148 <150 mg/dL 11/04/2018 8:01 PM CDT [facility] Comment: Fasting specimen HDL Cholesterol 40 >39 mg/dL 11/04/2018 7:51 PM [facility] LDL Cholesterol 143 (H) <100 mg/dL 11/04/2018 8:01 PM [facility] Comment: Above desirable: ??100-129 mg/dl Borderline High: ??130-159 mg/dL High: ? 160-189 mg/dL Very high: ? >189 mg/dl Non HDL Cholesterol 173 (H) <130 mg/dL 11/04/2018 7:51 PM CDT [facility] Comment: Above Desirable: ??130-159 mg/dl Borderline high: ??160-189 mg/dl High: ? 190-219 mg/dl Very high: ? >219 mg/dl Specimen Anatomical Collection Method Collection Time Receive d Time (Source) Location / / Volume Laterality Blood specimen 11/04/2018 2:51 PM 019 2:56 (specimen) CDT PM CDT Conner Vail MD LAB - BLOOD ORDERABLES Performing Organization Address City/State/ZIP Code Phon e Number [facility] [address] [id number] [phone] [facility] [address] [address], [place] [phone] [facility] [address] [place], [place] [address] [place] (ABNORMAL) Comprehensive metabolic panel (11/04/2018 2:51 PM CDT) Analysis Performed At [facility] Time Signature Sodium 136 133 - 144 11/04/2018 [place] mmol/L 7:24 PM CDT [facility] Potassium 4.1 3.4 - 5.3 11/04/2018 [place] mmol/L 7:24 PM CDT [facility] Chloride 105 94 - 109 11/04/2018 [place] mmol/L 7:24 PM CDT [facility] Carbon Dioxide 23 20 - 32 11/04/2018 [place] mmol/L 7:45 PM T [facility] Anion Gap 8 3 - 14 11/04/2018 [place] mmol/L 7:45 PM T [facility] Glucose 288 (H) 70 - 99 11/04/2018 [place] mg/dL 7:45 PM T [facility] Comment: Fasting specimen Urea Nitrogen 12 7 - 30 mg/dL 11/04/2018 7:45 PM T [facility] Creatinine 0.70 0.66 - 1.25 mg/dL 11/04/2018 7:45 PM T [facility] GFR Estimate >90 >60 11/04/2018 7:45 PM T [facility] mL/min/{1.73_m2} [facility] [place] Comment: Non GFR Calc Starting 05/10/2018, serum creatinine ba sed estimated GFR (eGFR) will be calculated using the Chronic Kidney Dise [facility] Epidemiology Collaboration (CKD-EPI) equation. GFR Estimate If >90 >60 mL/min/{1.73_m2} 11/04/2018 7: 45 PM [facility] Black [facility] Comment: GFR Calc Starting 05/10/2018, serum creatinine ba sed estimated GFR (eGFR) will be calculated using the Chronic Kidney Dise [facility] Epidemiology Collaboration (CKD-EPI) equation. Calcium 8.6 8.5 - 10.1 11/04/2018 7:45 PM [place] [facility] [place] mg/dL T [facility] Bilirubin Total 0.5 0.2 - 1.3 11/04/2018 7:51 PM [facility] mg/dL T HOSPITAL Albumin 3.5 3.4 - 5.0 g/dL 11/04/2018 7:51 PM [facility] Protein Total 6.6 (L) 6.8 - 8.8 g/dL 11/04/2018 7:51 PM [facility] Alkaline Phosphatase 113 40 - 150 U/L 11/04/2018 7:51 PM [facility] ALT 28 0 - 70 U/L 11/04/2018 7:51 PM [facility] AST 14 0 - 45 U/L 11/04/2018 7:51 PM [facility] Specimen Anatomical Collection Method Collection Time Receive d Time (Source) Location / / Volume Laterality Blood specimen 11/04/2018 2:51 PM 019 2:56 (specimen) CDT PM CDT Conner Vail MD LAB - BLOOD ORDERABLES Performing Organization Address City/State/ZIP Code Phon e Number [facility] [address] [place] [address] [phone] [facility] [address] [place], [place] [address] [facility] [address] [place] [address], [place] [phone] documented in this encounter Visit Diagnoses Diagnosis Routine history and physical examination of adult - Primary Routine general medical examination at a health care facility Uncontrolled type 2 diabetes mellitus wi thout complication, without long-term current use of insulin Slow transit constipation Hyperlipidemia LDL goal <100 Other and unspecified hyperlipidemia Tobacco use disorder [place] Other specified local infections of skin and subcutaneous tissue documented in this encounter Care Teams Physical Fitness Teacher Relationship Specialty Start Date End Date Gilberto Weathers MD PCP - General Internal Medicine 01/13/16 [address] [address] Gilberto Weathers MD Assigned PCP 06/05/18 03/18/19 [address] [address] documented as of this encounter
--- OUTSIDE RECORDS SUMMARY | 2022-03-05 03:57 | XMS_ITS | Encounter Summary ---
:1985 Author Organization [place] Address [address] [facility] [place] [address] Care Team Providers Name Role Phone Gilberto Weathers MD Primary Care Provider Abbie Molina APRN [facility] Unavailable [phone] Reason for Visit Reason Comments Medication Therapy Management Encounter Details Date Type Department Care Team Description 06/21/2017 Office Visit [facility] Mariah Mcmanus Uncon trolled type 2 diabetes mellitus without complication, without long-term current use of insulin (H) (Primary Dx); Clinic [facility] Hyperlipidemia LDL goal <100; [address] [place] [address] [facility] rn; [facility] [address] Seasonal allergic rhinitis, unspecified chronicity, unspecified trigger; [address] [place], [place] [phone] Social History Tobacco Use Types Packs/Day Years [...] Sign Reading Time Taken Comments Blood Pressure 114/68 06/21/2017 1:39 PM HYDROMETEOROLOGY TEACHER Pulse 70 06/21/2017 1:39 PM HYDROMETEOROLOGY TEACHER Temperature - - Respiratory Rate - - Oxygen Saturation - - Inhaled Oxygen Concentration - - Weight 93.2 kg (205 lb 6.4 oz) 06/21/2017 1:39 PM HYDROMETEOROLOGY TEACHER Height - - Body Mass Index 30.33 06/01/2017 10:49 AM HYDROMETEOROLOGY TEACHER documented in this encounter Patient Instructions Patient InstructionsHarriett Potts, [facility] - 06/21/2017 1:00 PM CST Recommendations from today's MTM visit: 1. Goal for this month is to take your Lantus insulin every single night and to test blood sugar onedaily in the morning. Make sure to set an alarm on your phone for 10 pm in order to help remember totake Lantus. 2. Can switch to taking Lantus at night to see if this helps you to remember to take your insulin. 3. Keep up the good work with not drinking soda - make sure to stay hydrated and drink water. 4. If having more issues with stomach, call MTM pharmacist and will talk to Dr. Weathers about changing to extended-release metformin to see if this would help stomach upset. 5. Can reach out to Dr. Weathers to see his thoughts regarding options for smoking cessation. Next MTM visit: 1 month To schedule another MTM appointment, please call the clinic directly or you may call the MTM scheduling line at [phone] or toll-free at . My Clinical Pharmacist's contact information: It was a pleasure seeing you today! Please feel free to contact me with any questions or concerns you have. Harriett Mi, [employer] Care Resident Pager: You may receive a survey about the MTM services you received. I would appreciate your feedback to help me serve you better in the future. Please fill it out and return it when you can. Your comments will be anonymous. OMETEOROLOGY TEACHER documented in this encounter Progress Notes Mariah Mcmanus, [facility] - 06/21/2017 1:00 PM CST SUBJECTIVE/OBJECTIVE: Ana Mcgowan is a 32 year old male coming in for a follow-up visit for Medication Therapy Management. He was referred to me from Dr. Weathers. Chief Complaint: Follow up from our visit on 06/07/17 - Diabetes and med adherence. Allergies/ADRs: Reviewed in [facility] Tobacco: 0-1 pack per day - is interested in quitting Alcohol: none Caffeine: 1-2 cups/day of coffee Activity: Likes to run and use treadmill a couple times a week PMH: Reviewed in [facility] Medication Adherence: issues found and discussed below Diabetes: Pt currently taking metformin 1000 mg BID with meals. Pt is experiencing the following side effects: GI upset, diarrhea, constipation, but has lessened over the past week. Patient states thatlast used Lantus last week in AM. Finds it difficult to remember to take in AM. SMBG: Last tested Wednesday 1 hour after eating dinner. Ranges (patient reported): 160, otherwise hasnot been testing. Patient is experiencing hypoglycemia. Frequency of hypoglycemia? rarely. Symptoms of low blood sugar? headaches, dizziness (attributes this most to when he drives, he doesn't get the chance to eat). Recent symptoms of high blood sugar? Polyphagia (very thirsty). Eye exam: due Foot exam: due Microalbumin is < 30 mg/g. Pt is not taking an ACEi/ARB. Aspirin: Not taking due to age Diet: Has taken soda out of the diet, bought water instead. Used to drink two to three 24 oz Pepsi/day. Been trying to eliminate or minimize as much as he can. Eat out a lot - he reports that he thinksthat is what his main problem is. Was putting a lot of sugar in coffee, now has been switching to splenda. Exercise: Will go to gym when he can, but has been busy with work. Lab Results Component Value Date A1C 11.9 06/01/2017 A1C 10.4 12/10/2016 A1C 6.6 03/17/2016 A1C 6.1 01/13/2016 A1C 6.6 02/01/2015 Hyperlipidemia: Current therapy atorvastatin 20mg once daily AM. Having issues with muscle aches throughout whole body, does lift so could be attributed to that. Heartburn: Current medications Prilosec (omeprazole) 20 once daily for heartburn. No medication sideeffects. Patient finds the medication to be effective. He has not had as many heartburn symptoms since starting. Allergic rhinitis: Current medications include fluticasone nasal spray 1-2 spray(s) once daily. Primary symptoms are nasal congestion, runny nose, sneezing. Pt feels that current therapy is effective. Finds that symptoms are better in the winter, so hasn't had to use since last encounter. Smoking Cessation: Patient is interest in quitting, but doesn't know what avenue he has not tried. How much does he smoke: 0-1 packs per day, will use first cigarrette 30 min-1 hour after getting up. Why does he smoke: habit Triggers for smoking include: Driving, stress, hanging out with friends. How long has he been smoking: Jacey Tried quitting in the past: Yes. He has tried many time with different therapies. What worked/didn???t work in the past: Has tried patch (didn't work), gum (taste was bad), Chantix (didn't work). Has not tried combination. He has heard of the Nicotrol inhaler and didn't like the sound of it. Why does he want to quit (motivators for quitting): Patient reports that he knows that it is bad forhim and he needs to stop. History of seizures/bipolar disease: No Occupation: [employer] Current labs include: BP Readings from Last 3 Encounters: 06/21/17 114/68 06/07/17 112/70 06/01/17 102/68 Today's Vitals: BP 114/68 Pulse 70 Wt 205 lb 6.4 oz (93.2 kg) BMI 30.33 kg/m2 [...] (Adacel,Boostrix) 07/03/1999 ASSESSMENT: Current medications were reviewed today as discussed above. Medication Adherence: needs improvement - see below. Diabetes: Needs Improvement. Patient is not meeting A1c goal of < 7%. Pt would benefit from minimum SMBG: Check blood sugars fasting, and adherence reminders of when to test blood sugar and take insulin. Therefore, it was recommended that the patient put alarm on his phone to help him to remember to take insulin. Also, since patient had difficulty remembering to take insulin in AM, suggested that patient could take at night, alarm was set in clinic for 10 pm. Since patient said he would like to hold off on changing metformin to XR to minimize diarrhea, will assess at next encounter. Hyperlipidemia: Stable. Heartburn: Stable. Allergic rhinitis: Stable. Smoking cessation: Needs Improvement. Pt is ready to quit using tobacco. We discussed: benefits of quitting. Based on lack of success with other therapy options and no seizure history, patient could benefit from bupropion, two weeks prior to quit date. Will reach out to Dr. Weathers to see his thoughts. PLAN: 1. Patient's goal for this month is to take Lantus insulin every single night and to test blood sugar one daily in the morning. Alarm was set on patient's phone to see if this helps with reminders. 2. MTM will reach out to Dr. Weathers to see his thoughts regarding options for smoking cessation. Future considerations: changing metformin to XR if patient still having issues with diarrhea. I spent 30 minutes with this patient today. I offer these suggestions for consideration by the PCP. A copy of the visit note was provided to the patient's primary care provider. Will follow up in 1 month in clinic. Will call patient in 2 weeks regarding insulin and testing adherence. I concur with the note as dictated above which reflects our joint assessment and plan. Mariah Mcmanus, [place] The patient was given a summary of these recommendations as an after visit summary. Harriett Mi, [employer] Care Resident Pager: OMETEOROLOGY TEACHER documented in this encounter Plan of Treatment Upcoming Encounters Date Type Specialty Care Team Description 06/16/2022 Virtual Visit Endocrinology Gilberto Weathers MD [address] [place] [address] Ky Marcos MD [address] [place] [address] documented as of this encounter Visit Diagnoses Diagnosis Uncontrolled type 2 diabetes mellitus wi thout complication, without long-term current use of insulin - Primary Hyperlipidemia LDL goal <100 Other and unspecified hyperlipidemia Heartburn Seasonal allergic rhinitis, unspecified chronicity, unspecified trigger Tobacco abuse Tobacco use disorder documented in this encounter Care Teams Superintendent Greens Relationship Specialty Start Date End Date Gilberto Weathers MD PCP - General Internal Medicine 01/13/16 [address] [place] [address] Abbie Molina APRN PCP - Assigned PCP 06/06/17 06/04/18 [facility] [address] [place] [address] documented as of this encounter
--- OUTSIDE RECORDS SUMMARY | 2022-03-05 03:57 | XMS_ITS | Encounter Summary ---
:1985 Author Organization [place] Address [address] [facility] [place] [address] Care Team Providers Name Role Phone Gilberto Weathers MD Primary Care Provider Encounter Details Date Type Department Care Team Description 06/03/2017 Orders Only [facility] Abbie Molina Hyperlipi demia LDL goal Clinic [place] NORIS English FACILITIES MAINTENANCE WORKER <100 [address] [place] [address] Social History Tobacco Use [...] Gilberto Weathers MD [address] [place], [place] [id number] Ky Marcos MD [address] [place] [address] documented as of this encounter Visit Diagnoses Diagnosis Hyperlipidemia LDL goal <100 Other and unspecified hyperlipidemia documented in this encounter Care Teams Supervisor Data Processing Relationship Specialty Start Date End Date Gilberto Weathers MD PCP - General Internal Medicine 01/13/16 [address] [place] [address] documented as of this encounter
--- OUTSIDE RECORDS SUMMARY | 2022-03-05 03:57 | XMS_ITS | Encounter Summary ---
:1985 Author Organization [place] Address [address] [facility] [place] [address] Care Team Providers Name Role Phone Gilberto Weathers MD Primary Care Provider Gilberto Weathers MD Unavailable Kiki Acevedo [facility] Unavailable [phone] Reason for Visit Reason Comments Medication Refill MICROLET LANCETS MISC Encounter Details Date Type Department Care Team Description 11/21/2018 Refill [facility] Gilberto Weathers, Med ication Refill Clinic Ciro BARFIELD (MICROLET LANCETS MISC) [address] [address] [address] [place] [address] Social History Tobacco Use Types [...] this encounter Miscellaneous Notes Telephone Encounter - Maribel Sparrow, RN - 11/22/2018 1:47 PM CDT Last office visit 11/03/18 Prescription approved per [facility] Refill Protocol. Maribel Sparrow RN Telephone Encounter - Xochitl Austin - 11/21/2018 11:54 AM CDT Requested Prescriptions Pending Prescriptions Disp Refills ??? MICROLET LANCETS MISC [Pharmacy Med Name: MICROLET COLORED LANCETS 100'S] 100 each 0 Sig: TEST ONCE DAILY Last Written Prescription Date: 08/31/2017 Last Fill Quantity: 100, # refills: 1 Last office visit: 08/31/2017 with prescribing provider: Future Office Visit: Diabetic Supplies Protocol Passed - 11/21/2018 11:07 AM Passed - Medication is active on med list Passed - Patient is 18 years of age or older Passed - Recent (6 mo) or future (30 days) visit within the authorizing provider's specialty Patient had office visit in the last 6 months or has a visit in the next 30 days with authorizing provider. See Patient Info tab in inbasket, or Choose Columns in Meds & Orders section of the refill encounter. documented in this encounter Plan of Treatment Upcoming Encounters Date Type Specialty Care Team Description 06/16/2022 Virtual Visit Endocrinology Gilberto Weathers MD [address] [place] [address] Ky Marcos MD [address] [place], [place] [id number] documented as of this encounter Visit Diagnoses Diagnosis Uncontrolled type 2 diabetes mellitus wi thout complication, without long-term current use of insulin - Primary documented in this encounter Care Teams Cat Scanner Operator Relationship Specialty Start Date End Date Gilberto Weathers MD PCP - General Internal Medicine 01/13/16 [address] [place], [place] [id number] Gilberto Weathers MD Assigned PCP 06/05/18 03/18/19 [address] [place], [place] [id number] Kiki Acevedo [facility] Pharmacist Pharmacist 11/08/18 04/29/21 [facility] [address] [address] documented as of this encounter
--- OUTSIDE RECORDS SUMMARY | 2022-03-05 03:57 | XMS_ITS | Encounter Summary ---
:1985 Author Organization [place] Address [address] [facility] [place] [address] Care Team Providers Name Role Phone Gilberto Weathers MD Primary Care Provider Gilberto Weathers MD Unavailable Kiki Acevedo [facility] Unavailable [phone] Mariah Mcmanus [facility] Unavailable Nancy Martin Unavailable Encounter Details Date Type Department Care Team Description 11/24/[address] [facility] [place] [place] Acut e nonintractable Clinic Ciro BARFIELD headache, unspecified [address] [place] [address] headache type (Primary [place], [place]x) [place] [address] [phone] Social History Tobacco Use Types Packs/Day Years [...] Visit Endocrinology Gilberto Weathers MD [address] [place] [address] Ky Marcos MD [address] [place], [place] [address] documented as of this encounter Visit Diagnoses Diagnosis Acute nonintractable headache, unspecifi ed headache type - Primary documented in this encounter Care Teams Clinical Education Academic Coordinator Relationship Specialty Start Date End Date Gilberto Weathers MD PCP - General Internal Medicine 01/13/16 [address] [place] [address] Gilberto Weathers MD Assigned PCP 06/05/18 03/18/19 [address] [place] [address] Kiki Acevedo, [facility] Pharmacist Pharmacist 11/08/18 04/29/[address] [place] [address] Mariah Mcmanus [facility] Pharmacist Pharmacist 12/01/18 01/04/19 [address] [facility] [address] [place], [place] [address] Nancy Martin NP Assigned PCP 03/19/19 03/16/20 [address] [place], [place] [id number] documented as of this encounter
--- OUTSIDE RECORDS SUMMARY | 2022-03-05 03:57 | XMS_ITS | Encounter Summary ---
:1985 Author Organization [place] Address [address] [facility] [place] [address] Care Team Providers Name Role Phone Gilberto Weathers MD Primary Care Provider Gilberto Weathers MD Unavailable Kiki Acevedo [facility] Unavailable [phone] Reason for Visit Reason Comments Hand Pain Encounter Details Date Type Department Care Team Description 03/11/2019 Emergency [facility] Kathi Ahuja Pa in of [facility] Emergency Dep t DO right hand [address] [facility] [place] [address] [address] ExchangePOINTKassandra SMITH [phone] [place] [address] (Wo rk) Social History Tobacco Use Types [...] Sign Reading Time Taken Comments Blood Pressure 141/83 03/11/2019 3:02 AM CDT Pulse 90 03/11/2019 3:02 AM CDT Temperature 36.4 ??C (97.5 ??F) 03/11/2019 3:02 AM CDT Respiratory Rate 18 03/11/2019 3:02 AM CDT Oxygen Saturation 99% 03/11/2019 3:02 AM CDT Inhaled Oxygen Concentration - - Weight - - Height - - Body Mass Index - - documented in this encounter Discharge Instructions AttachmentsThe following attachments cannot be sent through Care Everywhere.WES (Grenadian)documented in this encounter Medications at Time of Discharge Medication Sig Dispensed Refills Start Date End Date atorvastatin (LIPITOR) Take 1 tablet (20 30 tablet 1 201812/16/2020 20 MG tabletIndications: mg) by mouth daily Hyperlipidemia LDL goal <100 blood glucose monitoring FOLLOW PACKAGE 1 kit 0 019 03/14/2019 (CONTOUR NEXT MONITOR DIRECTIONS W/DEVICE KIT) meter device kitIndications: Uncontrolled type 2 diabetes mellitus without complication, without long-term current use of insulin CONTOUR NEXT TEST test TEST ONCE DAILY 100 strip 0 11/03/19 19 03/14/2019 stripIndications: Uncontrolled type 2 diabetes mellitus without complication, without long-term current use of insulin docusate sodium (COLACE) Take 1 capsule (100 60 capsule 1 12/10/2020 100 MG mg) by mouth 2 times capsuleIndications: Slow daily transit constipation fluticasone (FLONASE) 50 [place] 1-2 sprays 1 Bottle 11 01/1212/16/2020 MCG/ACT nasal into both nostrils sprayIndications: daily Congestion of paranasal sinus ibuprofen (ADVIL/MOTRIN) Take 1 tablet (600 20 tablet 0 03/16/2019 600 MG tablet mg) by mouth every 6 hours as needed metFORMIN (GLUCOPHAGE) TAKE 1 TABLET(1000 60 tablet 1 11/0303/14/2019 1000 MG MG) BY MOUTH TWICE tabletIndications: DAILY WITH MEALS Uncontrolled type 2 diabetes mellitus without complication, without long-term current use of insulin MICROLET LANCETS TEST ONCE DAILY 100 each 1 11/22/2018 MISCIndications: Uncontrolled type 2 diabetes mellitus without complication, without long-term current use of insulin nystatin (MYCOSTATIN) Apply topically 2 15 g 1 019 12/10/2020 [id number] UNIT/GM external times daily creamIndications: Perleche omeprazole (PRILOSEC) 20 Take 1 capsule (20 90 capsule 1 01/201803/27/2019 MG CR mg) by mouth daily capsuleIndications: Abdominal pain, epigastric order for Equipment being ordered: 3 Month 3 06/01/2017 12/16/2020 DMEIndications: All diabetic testing supplie s including glucose monitor covered by insurance, test strips, lancets and solution for testing 2-3 times per day. Uncontrolled type 2 diabetes mellitus without complication, without long-term current use of insulin, Other fatigue documented as of this encounter ED Notes Xander Lopes RN - 03/11/2019 3:02 AM CDT Jammed right middle finger on a door last Wednesday, pain worse yesterday and swelling started today. Cap refill less than 2 seconds. ABCs intact. ET aKthi Ahuja DO - 03/11/2019 3:00 AM CDT History Chief Complaint: Hand Pain HPI Ana Mcgowan is a 33 year old right hand dominant male who presents to the emergency department today with hand pain. The patient reports right index finger pain for the last 6 days with increased pain and swelling over the last few days. He notes associated tingling. The patient jammed his finger inthe door. He denies fever. He has not taken anything for pain. Allergies: No Known Drug Allergies Medications: Lipitor Blood glucose monitoring Colace Flonase Glucophage Mycostatin Prilosec Past Medical History: Diabetes Episodic cluster headache Sinus tachycardia Past Surgical History: History reviewed. No pertinent past surgical history. Family History: Hypertension Social History: The patient was alone. Smoking Status: Current every day smoker Smokeless Tobacco: Never Alcohol Use: No Marital Status: Single Review of Systems Constitutional: Negative for fever. Musculoskeletal: Positive for arthralgias (right hand pain). Neurological: Positive for numbness. Negative for weakness. All other systems reviewed and are negative. Physical Exam Patient Vitals for the past 24 hrs: BP Temp Temp src Pulse Heart Rate Resp SpO2 03/11/19 0302 (!) 141/83 97.5 ??F (36.4 ??C) Oral 90 90 18 99 % Physical Exam General: Resting comfortably Head: The scalp, face, and head appear normal Eyes: The pupils are normal Conjunctivae and sclera appear normal ENT: The nose is normal Neck: Normal range of motion Skin: No rash or lesions noted. Neuro: Speech is normal and fluent Psych: Awake. Alert. Normal affect. MSK: R. Hand: R. 3rd phalynx tenderness at DIP and finger pad, no overlying warmth/erythema/fluctuance/crepitance. No flexor sheath tenderness The finger flexors (FDS/FDP) are intact The finger extensors are intact The thumb exam is normal, including: Adduction, abduction, flexion, extension, opposition There are no sensory deficits Median, Ulnar, and Radial nerve function is normal Radial artery pulsations are normal Capillary refill is normal Emergency Department Course Imaging: Radiology findings were communicated with the patient who voiced understanding of the findings. XR Finger Right G/E 2 Views Final Result IMPRESSION: No visualized acute fracture or malalignment of the right third finger. Report per radiology Emergency Department Course: Nursing notes and vitals reviewed. 0430: I performed an exam of the patient as documented above. 0430: Findings and plan explained to the Patient. Patient discharged home with instructions regarding supportive care, medications, and reasons to return. The importance of close follow-up was reviewed. The patient was prescribed Advil. I personally reviewed the imaging results with the Patient and answered all related questions prior to discharge. Impression & Plan Medical Decision Making: Patient is a 33-year-old male who presents [...] symptoms persist he may need ortho f/u. Diagnosis: ICD-10-CM 1. Pain of finger of right hand M79.644 Disposition: discharged to home Discharge Medications: Discharge Medication List as of 03/11/2019 4:31 AM START taking these medications Details ibuprofen (ADVIL/MOTRIN) 600 MG tablet Take 1 tablet (600 mg) by mouth every 6 hours as needed, Disp-20 tablet, R-0, Local Print Scribe Disclosure: IHuma MD, am serving as a scribe at 4:32 AM on 03/11/2019 to document services personally performed by Kathi Ahuja DO based on my observations and the provider's statements to me. 03/11/2019 [facility] Kathi Ahuja DO 03/11/19 0538 documented in this encounter Plan of Treatment Upcoming Encounters Date Type Specialty Care Team Description 06/16/2022 Virtual Visit Endocrinology Gilberto Weathers MD [address] [place] [address] Ky Marcos MD [address] [place], [place] [phone] documented as of this encounter Procedures Procedure Name Priority Date/Time Associated Diagnosis Comme nts XR FINGER RIGHT G/E STAT 03/11/2019 4:08 AM Re sults for this 2 VIEWS CDT procedure are i n the results section. documented in this encounter Results XR Finger Right G/E 2 Views (03/11/2019 4:08 AM CDT) Anatomical Region Laterality Modality Hand, Right Hand Right Computed Radiography Specimen (Source) Anatomical Collection Method Collection Time Re ceived Time Location / / Volume Laterality 03/11/2019 4:04 AM CDT Impressions 03/11/2019 4:18 AM CDT IMPRESSION: No visualized acute fracture or malalignment of the right third finger. Narrative 03/11/2019 4:18 AM CDT EXAM: RIGHT THIRD FINGER 3 VIEWS LOCATION: [facility] DATE/TIME: 03/11/2019 4:04 AM INDICATION: Slammed finger in door. COMPARISON: None. Procedure Note Fawad Reagan MD - 03/11/2019Fo rmatting of this note might be different from the original. EXAM: RIGHT THIRD FINGER 3 VIEWS LOCATION: [facility] DATE/TIME: 03/11/2019 4:04 AM INDICATION: Slammed finger in door. COMPARISON: None. IMPRESSION: No visualized acute fracture or malalignment of the right third finger. Kathi Ahuja DO [facility] ORDER URIAH documented in this encounter Visit Diagnoses Diagnosis Pain of finger of right hand Pain in limb documented in this encounter Care Teams Adz Worker Relationship Specialty Start Date End Date Gilberto Weathers MD PCP - General Internal Medicine 01/13/16 [address] [place] [address] Gilberto Weathers MD Assigned PCP 06/05/18 03/18/19 [address] [place] [address] Kiki Acevedo [facility] Pharmacist Pharmacist 11/08/18 04/29/21 [facility] [address] [address] documented as of this encounter
--- OUTSIDE RECORDS SUMMARY | 2022-03-05 03:57 | XMS_ITS | Encounter Summary ---
:1985 Author Organization [place] Address [facility] [address] Care Team Providers Name Role Phone Gilberto Weathers MD Primary Care Provider Abbie Molina APRN AERIAL ADVERTISER Unavailable [phone] Reason for Visit Reason Onset Date Comments Medication Follow-up 07/09/2017 Encounter Details Date Type Department Care Team Description 07/09/2017 [facility] Harriett Potts Nm dication [facility]up [facility] [address] [address] [place] [address] (work) [phone] Social History Tobacco Use Types Packs/Day Years [...] Miscellaneous Notes Telephone Encounter - Harriett Potts [facility] - 07/09/2017 10:04 AM DIRECTOR CLIENT Tried calling patient to follow up on medications, adherence and how insulin administration is going. Left VM and CB#. Patient has appointment schedule for 07/19/17. Harriett Mi, PharmD Pharmaceutical Care Resident Pager: CTOR CLIENT documented in this encounter Plan of Treatment Upcoming Encounters Date Type Specialty Care Team Description 06/16/2022 Virtual Visit Endocrinology Gilberto Weathers MD [address] [place], [place] [id number] Ky Marcos MD [address] [place] [address] documented as of this encounter Visit Diagnoses Not on filedocumented in this encounter Care Teams Mica Machine Operator Relationship Specialty Start Date End Date Gilberto Weathers MD PCP - General Internal Medicine 01/13/16 [address] [place], [place] [phone] Abbie Molina APRN PCP - Assigned PCP 06/06/17 06/04/18 AERIAL ADVERTISER [address] [place] [address] documented as of this encounter
--- OUTSIDE RECORDS SUMMARY | 2022-03-05 03:57 | XMS_ITS | Encounter Summary ---
:1985 Author Organization [place] Address [address] [facility] [address] Care Team Providers Name Role Phone Gilberto Weathers MD Primary Care Provider Gilberto Weathers MD Unavailable Kiki Acevedo [facility] Unavailable Mariah Mcmanus [facility] Unavailable Reason for Visit Reason Onset Date Comments Diabetes Education 11/03/2018 scheduling outreach Encounter Details Date Type Department Care Team Description 11/03/2018 Telephone [facility] Con[place], Diab etes Education Clinic Ciro BARFIELD (scheduling outreach) [address] [place] [address] [place], [place] [phone] (Wo rk) [address] [phone] Social History Tobacco Use Types Packs/Day Years [...] Notes Telephone Encounter - Anish Chavez - 11/18/2018 11:02 AM CDT Diabetes Education Scheduling Outreach #2: Call to patient to schedule. Left message with phone number to call to schedule. Anish [facility] Diabetes and Nutrition Scheduling Telephone Encounter - Maeve Hester - 11/03/2018 5:36 PM CDT Diabetes Education Scheduling Outreach #1: Call to patient to schedule. Left message with phone number to call to schedule. Plan for 2nd outreach attempt within 1 week. Maeve [facility] Diabetes and Nutrition Scheduling documented in this encounter Plan of Treatment Upcoming Encounters Date Type Specialty Care Team Description 06/16/2022 Virtual Visit Endocrinology Gilberto Weathers MD [address] [place], [place] [address] Ky Marcos MD [address] [place] [address] documented as of this encounter Visit Diagnoses Not on filedocumented in this encounter Care Teams Water Proofer Relationship Specialty Start Date End Date Gilberto Weathers MD PCP - General Internal Medicine 01/13/16 [address] [facility] [place] [id number] Gilberto Weathers MD Assigned PCP 06/05/18 03/18/19 [address] [place] [address] Kiki Acevedo, [facility] Pharmacist Pharmacist 11/08/18 04/29/21 [address] [facility] [address] [place] [address] Mariah Mcmanus, [facility] Pharmacist Pharmacist 12/01/18 01/04/19 [address] [facility] [address] [place], [place] [id number] documented as of this encounter
--- OUTSIDE RECORDS SUMMARY | 2022-03-05 03:57 | XMS_ITS | Encounter Summary ---
:1985 Author Organization [place] Address [facility] [place] [address] Care Team Providers Name Role Phone Gilberto Weathers MD Primary Care Provider Abbie Molina APRN LINKING MACHINE OPERATOR Unavailable [phone] Reason for Visit Reason Onset Date Comments Appointment 06/07/2017 Encounter Details Date Type Department Care Team Description 06/07/2017 [facility] Harriett Potts, Appointment [facility] [address] [place] [address] [place] [address] [phone] Social History Tobacco Use Types Packs/Day Years [...] Miscellaneous Notes Telephone Encounter - Harriett Potts [facility] - 06/07/2017 9:38 PM CLOTH SHRINKING SUPERVISOR Called patient due to missed appointment to reschedule. Voicemailbox was not set up, could not leavemessage. However, patient did show up to appointment 20 minutes late, saw patient then. Harriett Mi, PharmD Pharmaceutical Care Resident Pager: H SHRINKING SUPERVISOR documented in this encounter Plan of Treatment Upcoming Encounters Date Type Specialty Care Team Description 06/16/2022 Virtual Visit Endocrinology Gilberto Weathers MD [address] [place], [place] [address] Ky Marcos MD [address] [place], [place] [address] documented as of this encounter Visit Diagnoses Not on filedocumented in this encounter Care Teams Cyber Forensic Specialist Relationship Specialty Start Date End Date Gilberto Weathers MD PCP - General Internal Medicine 01/13/16 [address] [place], [place] [address] Abbie Molina APRN PCP - Assigned PCP 06/06/17 06/04/18 LINKING MACHINE OPERATOR [address] [place], [place] [address] documented as of this encounter
--- OUTSIDE RECORDS SUMMARY | 2022-03-05 03:57 | XMS_ITS | Encounter Summary ---
:1985 Author Organization [place] Address [address] [facility] [place] [address] Care Team Providers Name Role Phone Gilberto Weathers MD Primary Care Provider Gilberto Weathers MD Unavailable Kiki Acevedo [facility] Unavailable [phone] Mariah Mcmanus [facility] Unavailable Encounter Details Date Type Department Care Team Description 12/01/2018 Telephone [facility] Mariah Mcmanus, [address] [place] [address] [address] [place] [address] Social History Tobacco Use [...] Miscellaneous Notes Telephone Encounter - Mariah Mcmanus [facility] - 12/01/2018 3:47 PM CDT Unable to leave message. documented in this encounter Plan of Treatment Upcoming Encounters Date Type Specialty Care Team Description 06/16/2022 Virtual Visit Endocrinology Gilberto Weathers MD [address] [place], [place] [address] Ky Marcos MD [address] [place] [address] documented as of this encounter Visit Diagnoses Not on filedocumented in this encounter Care Teams Director Of Sustainable Design Relationship Specialty Start Date End Date Gilberto Weathers MD PCP - General Internal Medicine 01/13/16 [address] [place], [place] [phone] Gilberto Weathers MD Assigned PCP 06/05/18 03/18/19 [address] [place], [place] [address] Kiki Acevedo [facility] Pharmacist Pharmacist 11/08/18 04/29/21 [address] [facility] [address] [place], [place] [address] Mariah Mcmanus [facility] Pharmacist Pharmacist 12/01/18 01/04/19 [address] [facility] [address] [place], [place] [phone] documented as of this encounter
--- OUTSIDE RECORDS SUMMARY | 2022-03-05 03:57 | XMS_ITS | Encounter Summary ---
:1985 Author Organization [place] Address [address] [facility] [place] [address] Care Team Providers Name Role Phone Gilberto Weathers MD Primary Care Provider Gilberto Weathers MD Unavailable Kiki Acevedo [facility] Unavailable [phone] Reason for Visit Reason Onset Date Comments Refill Request 11/07/2018 blood glucose monito ring Encounter Details Date Type Department Care Team Description 11/07/2018 Refill [facility] Abbie Molina, Farzana fill Request (blood Clinic [facility] FLOOR MANAGER glucose monitoring) [address] [place] [address] [place], [place] [phone] (Wo rk) [address] [phone] Social History Tobacco Use Types Packs/Day Years [...] this encounter Miscellaneous Notes Telephone Encounter - Madison Araujo RN - 11/09/2018 11:03 AM CDT Prescription approved per [facility] Refill Protocol. Telephone Encounter - Jasmin Cortez - 11/07/2018 1:40 PM CDT Requested Prescriptions Pending Prescriptions Disp Refills ??? blood glucose monitoring (CONTOUR NEXT MONITOR W/DEVICE KIT) meter device kit [Pharmacy Med Name: CONTOUR NEXT BLD GLUCOSE METER] 1 kit 0 Sig: FOLLOW PACKAGE DIRECTIONS Last Written Prescription Date: Not on meds list Last Fill Quantity: n/a, # refills: n/a Last office visit: 11/03/2018 with prescribing provider: Future Office Visit: Next 5 appointments (look out 90 days) Nov 08, 2018 1:00 PM CDT SHORT with Kiki Acevedo [facility] Primary Care [facility] ([facility] [address] [place] [phone] Diabetic Supplies Protocol Failed - 11/07/2018 12:08 PM Failed - Medication is active on med list [...] Endocrinology Gilberto Weathers MD [address] [place] [address] Ky Marcos MD [address] [facility] [place] [address] documented as of this encounter Visit Diagnoses Diagnosis Uncontrolled type 2 diabetes mellitus wi thout complication, without long-term current use of insulin - Primary documented in this encounter Care Teams Music Intern Relationship Specialty Start Date End Date Gilberto Weathers MD PCP - General Internal Medicine 01/13/16 [address] [place], [place] [id number] Gilberto Weathers MD Assigned PCP 06/05/18 03/18/19 [address] [place], [place] [phone] Kiki Acevedo [facility] Pharmacist Pharmacist 11/08/18 04/29/21 [facility] [address] [address] documented as of this encounter
--- OUTSIDE RECORDS SUMMARY | 2022-03-05 03:57 | XMS_ITS | Encounter Summary ---
:1985 Author Organization [place] Address [facility] [place] [address] Care Team Providers Name Role Phone Gilberto Weathers MD Primary Care Provider Abbie Molina APRN WATCH ASSEMBLY INSTRUCTOR Unavailable [phone] Encounter Details Date Type Department Care Team Description 02/21/[address] [facility] Mariah Mcmanus, [address] [place] [address] [address] [place] [address] Social History Tobacco Use [...] Miscellaneous Notes Telephone Encounter - Mariah Mcmanus [facility] - 02/21/2018 11:10 AM CDT Called Ana to follow-up. Also due for follow-up with Dr. Weathers. Unable to leave message on [employer]. Will send letter. Mariah Mcmanus , Pharm D [phone] (phone) [phone] (pager) Medication Therapy Management Pharmacist documented in this encounter Plan of Treatment Upcoming Encounters Date Type Specialty Care Team Description 06/16/2022 Virtual Visit Endocrinology Gilberto Weathers MD [address] [facility] [place], [place] [phone] Ky Marcos MD [address] [place] [address] documented as of this encounter Visit Diagnoses Not on filedocumented in this encounter Care Teams Independent Driver Relationship Specialty Start Date End Date Gilberto Weathers MD PCP - General Internal Medicine 01/13/16 [address] [place], [place] [phone] Abbie Molina APRN PCP - Assigned PCP 06/06/17 06/04/18 WATCH ASSEMBLY INSTRUCTOR [address] [place], [place] [phone] documented as of this encounter
--- OUTSIDE RECORDS SUMMARY | 2022-03-05 03:57 | XMS_ITS | Encounter Summary ---
:1985 Author Organization [place] Address [address] [place] [address]. [place] [address] Care Team Providers Name Role Phone Gilberto Weathers MD Primary Care Provider Gilberto Weathers MD Unavailable Kiki Acevedo [facility] Unavailable [phone] Reason for Visit Reason Comments Erroneous encounter-disregard Encounter Details Date Type Department Care Team Description 11/08/2018 Office Visit [facility] Kiki Acevedo [facility] [place] [facility] ENCOUNTER--DISREGARD [address] [place] [address] (Primary Dx) [address] [place] [address] [phone] Social History Tobacco Use Types Packs/Day Years [...] AM CDT documented as of this encounter Patient Instructions Patient InstructionsMelanie Salas - 11/08/2018 1:00 PM CDT . documented in this encounter Plan of Treatment Upcoming Encounters Date Type Specialty Care Team Description 06/16/2022 Virtual Visit Endocrinology Gilberto Weathers MD [address] [facility] [place], [place] [address] Ky Marcos MD [address] [place], [place] [phone] documented as of this encounter Visit Diagnoses Diagnosis ERRONEOUS ENCOUNTER--DISREGARD - Primary documented in this encounter Care Teams Head Bone Grinder Relationship Specialty Start Date End Date Gilberto Weathers MD PCP - General Internal Medicine 01/13/16 [address] [place], [place] [address] Gilberto Weathers MD Assigned PCP 06/05/18 03/18/19 [address] [place], [place] [address] Kiki Acevedo [facility] Pharmacist Pharmacist 11/08/18 04/29/[address] [place] [address] documented as of this encounter
--- OUTSIDE RECORDS SUMMARY | 2022-03-05 03:57 | XMS_ITS | Encounter Summary ---
:1985 Author Organization [place] Address [address] [place] [address] Care Team Providers Name Role Phone Gilberto Weathers MD Primary Care Provider Abbie Molina APRN GAS WELDING EQUIPMENT MECHANIC Unavailable [phone] Gilberto Weathers MD Unavailable Gilberto Weathers MD Unavailable Reason for Visit Reason Onset Date Comments Panel Management 05/12/2018 Encounter Details Date Type Department Care Team Description 05/12/2018 Telephone [facility] Abbie Molina Ma, Panel Management [place] GAS WELDING EQUIPMENT MECHANIC [address] [place] [address] [place] [address] [phone] Social History Tobacco Use Types Packs/Day Years [...] this encounter Miscellaneous Notes Telephone Encounter - Wolfgang Avila LPN - 05/12/2018 8:56 AM CST Panel Management Review Patient has the following on his problem list: Diabetes ASA: Failed Last A1C Lab Results Component Value Date A1C 7.4 09/03/2017 A1C 11.9 06/01/2017 A1C 10.4 12/10/2016 A1C 6.6 03/17/2016 A1C 6.1 01/13/2016 A1C tested: MONITOR Last LDL: Lab Results Component Value Date CHOL 208 06/01/2017 Lab Results Component Value Date HDL 43 06/01/2017 Lab Results Component Value Date LDL 129 06/01/2017 Lab Results Component Value Date TRIG 178 06/01/2017 Lab Results Component Value Date CHOLHDLRATIO 4.9 10/15/2014 Lab Results Component Value Date NHDL 165 06/01/2017 Is the patient on a Statin? YES Is the patient on Aspirin? NO Medications HMG CoA Reductase Inhibitors atorvastatin (LIPITOR) 20 MG tablet Last three blood pressure readings: BP Readings from Last 3 Encounters: 08/31/17 112/72 06/21/17 114/68 06/07/17 112/70 Date of last diabetes office visit: 06-01-17 Tobacco History: History Smoking Status ??? Current Every Day Smoker ??? Packs/day: 0.25 ??? Years: 5.00 Smokeless Tobacco ??? Never Used Composite cancer screening Chart review shows that this patient is due/due soon for the following None Summary: Patient is due/failing the following: Action needed: Patient needs office visit for see above. Type of outreach: Sent letter. Questions for provider review: None .WOLFGANG AVILA LPN Chart routed to none . SUPPORT TECHNICIAN documented in this encounter Plan of Treatment Upcoming Encounters Date Type Specialty Care Team Description 06/16/2022 Virtual Visit Endocrinology Gilberto Weathers MD [address] [place] [address] Ky Marcos MD [address] [place], [place] [phone] documented as of this encounter Visit Diagnoses Not on filedocumented in this encounter Care Teams Affiliate Manager Relationship Specialty Start Date End Date Gilberto Weathers MD PCP - General Internal Medicine 01/13/16 [address] [place], [place] [address] Abbie Molina APRN PCP - Assigned PCP 06/06/17 06/04/18 GAS WELDING EQUIPMENT MECHANIC [address] [place] [address] Gilberto Weathers MD PCP - Assigned PCP 06/05/18 07/26/18 [address] [place], [place] [address] Gilberto Weathers MD Assigned PCP 06/05/18 03/18/19 [address] [place] [address] documented as of this encounter
--- OUTSIDE RECORDS SUMMARY | 2022-03-05 03:57 | XMS_ITS | Encounter Summary ---
:1985 Author Organization [place] Address [address] [facility] [place] [address] Care Team Providers Name Role Phone Gilberto Weathers MD Primary Care Provider Abbie Molina APRN LABORER [employer]RSE Unavailable [phone] Reason for Visit Reason Comments Medication Therapy Management Encounter Details Date Type Department Care Team Description 08/31/2017 [facility] [place] Harriett Potts Medickaio n Therapy Health[facility]Nurse Clinic [place] [facility] Management Visit [address] [address] [place], [place] [phone] [address] (Work) [phone] Social History Tobacco Use Types Packs/Day Years [...] Sign Reading Time Taken Comments Blood Pressure 112/72 08/31/2017 3:21 PM CDT Pulse - - Temperature - - Respiratory Rate - - Oxygen Saturation - - Inhaled Oxygen Concentration - - Weight 93.6 kg (206 lb 6.4 oz) 08/31/2017 3:21 PM CDT Height - - Body Mass Index 30.48 06/01/2017 10:49 AM EXPLOSION WELDER documented in this encounter Patient Instructions Patient InstructionsHarriett Potts RPH - 08/31/2017 2:30 PM CDT Recommendations from today's MTM visit: 1. Could try Miralax as needed for constipation: take 1 capful (17 grams) daily as needed for constipation. 2. Will talk to Dr. Weathers about getting 3 month supply of metformin. 3. Continue to test your blood sugar fasting in the morning daily, and 2 hours after starting your largest meal a couple times per week. Next MTM visit: 3 months To schedule another MTM appointment, please call the clinic directly or you may call the MTM scheduling line at [phone] or toll-free at . My Clinical Pharmacist's [...] you can. Your comments will be anonymous. documented in this encounter Progress Notes Harriett Potts RPH - 08/31/2017 2:30 PM CDT SUBJECTIVE/OBJECTIVE: Ana Mcgowan is a 32 year old male coming in for a follow-up visit for Medication Therapy Management. He was referred to me from Dr. Weathers. Chief Complaint: Follow up from our visit on 06/21/17. Diabetes Tobacco: 0-1 pack per day - is not interested in quittingTobacco Cessation Action Plan: Information offered: Patient not interested at this time - going to [place] for 3 months and doesn't want to trynow, does want to talk about when he gets back from vacation. Alcohol: not currently using Medication Adherence/Access: Per patient, misses medication 2 times per week. Diabetes: Pt currently taking metformin 1000 mg BID. Never started Lantus. Since his blood sugars had improved just by diet, he didn't want to start using insulin if it wasn't necessary. Patient is wondering if there are alternatives available other than injectable if he needs it. Uunsure of starting new medication since he is leaving on vacation soon, but wants to get blood sugars properly managed. Pt is not experiencing side effects. Is going on vacation to visit friends in [place] for 3 months, so is requesting 3 month supply of metformin and testing supplies. SMBG: one time. Ranges (glucometer): Has been taking blood sugars 30 min-1 hour after eating. Date FBG/ 2hours post Lunch/2hours post Dinner /2hours post 08/31 133 (in clinic) 08/29 177 4/2 153 4/1 150 08/21 179 /6 245 /5 151 07/21 146 Patient is not experiencing hypoglycemia Recent symptoms of high blood sugar? none Eye exam: due, planning on making appointment today Foot exam: due Microalbumin is < 30 mg/g. Pt is not taking an ACEi/ARB. Aspirin: Not taking due to age Diet: Before, was drinking a lot of regular soda (2 to 3- 24 oz sodas/day). Now, completely cutting out soda, only drinks water. Has been cutting down on sweets. Has been trying to watch carbohydrates,less rice. Constipation: Current medications include: none. Has tried a couple medications, but wasn't working.Tried milk of magnesia. Having bowel movement every 1-2 days. Finds that having difficulty straining, pebble like. Drinks 60-64 oz water/day. Hyperlipidemia: Current therapy includes atorvastatin 20mg once daily. Pt reports no significant myalgias or other side effects. Heartburn: Current medications include: Prilosec (omeprazole) 20mg once daily. Pt c/o no current symptoms. Patient feels that current regimen is effective. Current labs include: Today's Vitals: BP 112/72 Wt 205 lb 6.4 oz (93.2 kg) BMI 30.33 kg/m2 BP Readings from Last 3 Encounters: 08/31/17 112/72 06/21/17 114/68 06/07/17 112/70 Lab Results Component Value Date A1C 11.9 [...] 06/01/2017 1.98 0.40 - 4.00 mU/L Final ] Most Recent Immunizations Administered Date(s) Administered ??? TDAP Vaccine (Adacel) 03/17/2016 ??? Tdap (Adacel,Boostrix) 07/03/1999 ASSESSMENT: Current medications were reviewed today as discussed above. Medication Adherence: good, no issues identified Diabetes: Needs Improvement. Patient is not meeting A1c goal of < 7%. Self monitoring of blood glucose is not at goal of fasting 80-130 mg/dL and post prandial < 180 mg/dL. However, blood sugars have improved since diet/lifestyle management and metformin. Reinforced necessity of adherence with medications. Pt would benefit from minimum SMBG: Check blood sugars fasting, and occasionally 2 hours after starting a meal and repeat A1c. If A1c above goal, patient would benefit from additional therapy such as Jardiance 10 mg once daily for A1c lowering/weight loss properties or Januvia 100 mg once daily, depending on copay- both tier 2 on medication formulary. Will send in 3 month supplies of metformin and test strips. Eye exam due- patient calling today to schedule. Foot exam due. Constipation: Needs improvement. Patient would benefit from starting miralax 1 capful (17 grams) once daily PRN constipation. Hyperlipidemia: Stable. Heartburn: Stable. PLAN: 1. Patient to complete A1c within the week- order okay'd by Dr. Weathers 2. Patient can use miralax 1 capful (17 grams) once daily PRN constipation. 3. 3 month supply of metformin and test strips sent to pharmacy - ok'd by Dr. Weathers Future consideration: Jardiance or Januvia addition to regimen (depending on insurance) - will awaitresults of A1c. I spent 30 minutes with this patient today. All changes were made via verbal approval with Gilberto Weathers. A copy of the visit note was provided to the patient's primary care provider. Will follow up in 3 months once patient gets back from vacation. I concur with the note as dictated above which reflects our joint assessment and plan. Mariah Mcmanus, [place] The patient was given a summary of these recommendations as an after visit summary. Harriett Mi PharmD Pharmaceutical Care Resident Pager: documented in this encounter Plan of Treatment Upcoming Encounters Date Type Specialty Care Team Description 06/16/2022 Virtual Visit Endocrinology Gilberto Weathers MD [address] [place] [address] Ky Marcos MD [address] [place] [address] documented as of this encounter Results (ABNORMAL) Hemoglobin A1c (09/03/2017 12:41 PM CDT) Analysis Performed At Patho logist Time Signature Hemoglobin A1C 7.4 (H) 0 - 5.6 % 09/03/2017 [place] 1:30 PM CDT [facility] Comment: Normal <5.7% Prediabetes 5.7-6.4% ??Diab etes 6.5% or higher - adopted from ADA consensus guidelines. Results confirmed by repeat test Specimen Anatomical Collection Method Collection Time Receive d Time (Source) Location / / Volume Laterality Blood specimen 09/03/2017 12:41 8 (specimen) PM CDT 12:46 PM CDT Gilberto Weathers MD LAB - BLOOD ORDERABLES Performing Organization Address City/State/ZIP Code Phon e Number [facility] [address] [place], [place] [address] [address] documented in this encounter Visit Diagnoses Diagnosis Uncontrolled type 2 diabetes mellitus wi thout complication, without long-term current use of insulin - Primary Constipation, unspecified constipation t ype Hyperlipidemia LDL goal <100 Other and unspecified hyperlipidemia Heartburn documented in this encounter Care Teams Community Chest Officer Relationship Specialty Start Date End Date Gilberto Weathers MD PCP - General Internal Medicine 01/13/16 [address] [place], [place] [address] Abbie Molina APRN PCP - Assigned PCP 06/06/17 06/04/18 [employer] [address] [place], [place] [address] documented as of this encounter
--- OUTSIDE RECORDS SUMMARY | 2022-03-05 03:57 | XMS_ITS | Encounter Summary ---
:1985 Author Organization [place] Address [facility] [place] [address] Care Team Providers Name Role Phone Gilberto Weathers MD Primary Care Provider Gilberto Weathers MD Unavailable Encounter Details Date Type Department Care Team Description 11/03/2018 Travel Social History Tobacco Use Types Packs/Day [...] Endocrinology Gilberto Weathers MD [address] [place] [address] Ky Marcos MD [address] [place] [address] documented as of this encounter Visit Diagnoses Not on filedocumented in this encounter Care Teams Vocational Coordinator Relationship Specialty Start Date End Date Gilberto Weathers MD PCP - General Internal Medicine 01/13/16 [address] [place], [place] [phone] Gilberto Weathers MD Assigned PCP 06/05/18 03/18/19 [address] [place], [place] [address] documented as of this encounter
--- OUTSIDE RECORDS SUMMARY | 2022-03-05 03:57 | XMS_ITS | Encounter Summary ---
:1985 Author Organization [place] Address [facility] [place] [address] Care Team Providers Name Role Phone Gilberto Weathers MD Primary Care Provider Gilberto Weathers MD Unavailable Kiki Acevedo [facility] Unavailable [phone] Encounter Details Date Type Department Care Team Description 03/11/2019 Travel Social History Tobacco Use Types Packs/Day [...] Endocrinology Gilberto Weathers MD [address] [place] [address] Ky Marcos MD [address] [place] [address] documented as of this encounter Visit Diagnoses Not on filedocumented in this encounter Care Teams Stationary Equipment Mechanic Relationship Specialty Start Date End Date Gilberto Weathers MD PCP - General Internal Medicine 01/13/16 [address] [place] [address] Gilberto Weathers MD Assigned PCP 06/05/18 03/18/19 [address] [place] [address] Kiki Acevedo [facility] Pharmacist Pharmacist 11/08/18 04/29/21 [facility] [address] [address] documented as of this encounter
--- OUTSIDE RECORDS SUMMARY | 2022-03-05 03:57 | XMS_ITS | Encounter Summary ---
:1985 Author Organization [place] Address [facility] [place] [address] Care Team Providers Name Role Phone Gilberto Weathers MD Primary Care Provider Gilberto Weathers MD Unavailable Reason for Visit Reason Onset Date Comments Refill Request 11/01/[address] strip Encounter Details Date Type Department Care Team Description 11/01/2018 Refill [facility] Gilberto Weathers, Ref ill Request (CONTOUR Clinic [facility] [place] NEXT TEST test strip ) [address] [address] [address] [place] [address] Social History Tobacco Use Types [...] Telephone Encounter - Madison Araujo RN - 11/01/2018 3:54 PM CDT Routing refill request to provider for review/approval because: A break in medication Last May, patient was given a three month supply of diabetic testing supplies. Last office visit 06/01/17. Called patient and assisted in scheduling. Next 5 appointments (look out 90 days) Nov 03, 2018 9:00 AM CDT SHORT with Conner Vail MD [facility] [place] [facility] [address] Telephone Encounter - Xochitl Austin - 11/01/2018 8:39 AM CDT Requested Prescriptions Pending Prescriptions Disp Refills ??? CONTOUR NEXT TEST test strip [Pharmacy Med Name: CONTOUR NEXT TEST Last Written Prescription Date: 08/31/2017 Last Fill Quantity: 100, # refills: 1 Last office visit: 08/31/2017 with prescribing provider: Future Office Visit: STRIPS] 100 strip 0 Sig: TEST ONCE DAILY Diabetic Supplies Protocol Failed - 11/01/2018 5:03 AM Failed - Recent (6 mo) or future (30 days) visit within the authorizing provider's specialty Patient had office visit in the last 6 months or has a visit in the next 30 days with authorizing provider. See Patient Info tab in inbasket, or Choose Columns in Meds & Orders section of the refill encounter. Passed - Medication is active on med list Passed - Patient is 18 years of age or older documented in this encounter Plan of Treatment Upcoming Encounters Date Type Specialty Care Team Description 06/16/2022 Virtual Visit Endocrinology Gilberto Weathers MD [address] [place] [address] Ky Marcos MD [address] [facility] [place] [address] documented as of this encounter Visit Diagnoses Diagnosis Uncontrolled type 2 diabetes mellitus wi thout complication, without long-term current use of insulin - Primary documented in this encounter Care Teams Conservation Scientist Relationship Specialty Start Date End Date Gilberto Weathers MD PCP - General Internal Medicine 01/13/16 [address] [place], [place] [address] Gilberto Weathers MD Assigned PCP 06/05/18 03/18/19 [address] [facility] [place] [phone] documented as of this encounter
--- OUTSIDE RECORDS SUMMARY | 2022-03-05 03:57 | XMS_ITS | Encounter Summary ---
:1985 Author Organization [place] Address [address] [facility] [place] [address] Care Team Providers Name Role Phone Gilberto Weathers MD Primary Care Provider Abbie Molina APRN GAUGE OPERATOR Unavailable [phone] Reason for Visit Reason Onset Date Comments Outreach 08/23/2017 MTM- f/u appt Encounter Details Date Type Department Care Team Description 08/23/2017 Telephone [facility] Harriett Potts Outreach (MTM- f/u appt Clinic [place] [facility] ) [address] [address] [place], [place] [phone] [address] (Work) [phone] Social History Tobacco Use Types Packs/Day Years [...] Miscellaneous Notes Telephone Encounter - Harriett Potts [facility] - 08/23/2017 9:08 AM CDT Called patient - scheduled MTM follow-up appointment for 08/30/17@2pm in clinic. Recommended patient bring in glucometer. Harriett Mi, PharmD Pharmaceutical Care Resident Pager: documented in this encounter Plan of Treatment Upcoming Encounters Date Type Specialty Care Team Description 06/16/2022 Virtual Visit Endocrinology Gilberto Weathers MD [address] [place] [address] Ky Marcos MD [address] [place] [address] documented as of this encounter Visit Diagnoses Not on filedocumented in this encounter Care Teams Ecommerce Marketing Specialist Relationship Specialty Start Date End Date Gilberto Weathers MD PCP - General Internal Medicine 01/13/16 [address] [place] [address] Abbie Molina APRN PCP - Assigned PCP 06/06/17 06/04/18 GAUGE OPERATOR [address] [place] [address] documented as of this encounter
--- OUTSIDE RECORDS SUMMARY | 2022-03-05 03:58 | XMS_ITS | Encounter Summary ---
:1985 Author Organization [place] Address [facility] [place] [address] Care Team Providers Name Role Phone Otilia Recinos MD Primary Care Provider Reason for Visit Reason Onset Date Comments No Show 06/28/2015 Encounter Details Date Type Department Care Team Description 06/28/[address] [facility] Jorje, NO SHOW (P rimary Dx) Clinic [place] MD Otilia [address] [facility] [phone] [place] [address] [place] [address] Social History Tobacco Use Types Packs/Day Years Used Date Smoking Tobacco: Some Days Cigarettes 0.5 5 Smokeless Tobacco: Never Alcohol [...] documented as of this encounter Progress Notes Eloise Henriquez CMA - 06/28/2015 2:55 PM CST This patient was a no show for this scheduled appointment. MANAGER documented in this encounter Plan of Treatment Upcoming Encounters Date Type Specialty Care Team Description 06/16/2022 Virtual Visit Endocrinology Gilberto Weathers MD [address] [place] [address] Ky Marcos MD [address] [place] [address] documented as of this encounter Visit Diagnoses Diagnosis NO SHOW - Primary documented in this encounter Care Teams Human Resource Intern Relationship Specialty Start Date End Date Otilia Recnios MD PCP - General Family Practice 04/02/15 01/12/16 documented as of this encounter
--- OUTSIDE RECORDS SUMMARY | 2022-03-05 03:58 | XMS_ITS | Encounter Summary ---
:1985 Author Organization [place] Address [facility] [place] [address] Care Team Providers Name Role Phone Gilberto Weathers MD Primary Care Provider Reason for Referral Vision Services - Closed Specialty Diagnoses / Procedures Referred By Contact Refer red To Contact Diagnoses Uncontrolled type 2 diabetes mellitus without complication, without long-term current use of insulin Abbie Molina [facility] EDUCATIONAL TECHNOLOGY SPECIALIST SURGEON [address] [facility] [address] [facility] [address] [place] [address] [place] [address] Referral ID Status Reason Start Date Expiration Date Visits Requ ested Visits Authorized [id number] Closed 06/01/2017 06/01/2018 1 1 GE SCREEN OPERATOR Patient Education - Closed Specialty Diagnoses / Procedures Referred By Contact Refer red To Contact Diagnoses Uncontrolled type 2 diabetes mellitus without complication, without long-term current use of insulin Other fatigue Abbie Molina, [facility] HISTOLOGY TEACHER EDUCATIONAL TECHNOLOGY SPECIALIST [facility] [address] [place] [phone] Referral ID Status Reason Start Date Expiration Date Visits Requ ested Visits Authorized [id number] Closed 06/01/2017 06/01/2018 1 1 GE SCREEN OPERATOR Reason for Visit Reason Comments Recheck Medication Diabetes Encounter Details Date Type Department Care Team Description [facility] without complication, without long-term current use of insulin (H) (Primary Dx); Clinic [place] NORIS English CNP Non morbid obesity due to excess calorie s; [address] [place] [address] Other fatigue ; [address] CARDIOVASCULAR SCREENING; LDL GOAL LESS THAN 100; [place], [place] Abdominal p ain, epigastric [phone] [id number] Social History Tobacco Use Types Packs/Day Years [...] Sign Reading Time Taken Comments Blood Pressure 102/68 06/01/2017 10:49 AM SEWAGE SCREEN OPERATOR Pulse 92 06/01/2017 10:49 AM SEWAGE SCREEN OPERATOR Temperature 36.8 ??C (98.3 ??F) 06/01/2017 10:49 AM SEWAGE SCREEN OPERATOR Respiratory Rate 12 06/01/2017 10:49 AM SEWAGE SCREEN OPERATOR Oxygen Saturation 100% 06/01/2017 10:49 AM SEWAGE SCREEN OPERATOR Inhaled Oxygen Concentration - - Weight 93.4 kg (206 lb) 06/01/2017 10:49 AM SEWAGE SCREEN OPERATOR Height 175.3 cm (5' 9) 06/01/2017 10:49 AM SEWAGE SCREEN OPERATOR Body Mass Index 30.42 06/01/2017 10:49 AM SEWAGE SCREEN OPERATOR documented in this encounter Patient Instructions Patient InstructionsAbbie Molina APRN CNP - 06/01/2017 10:40 AM SEWAGE SCREEN OPERATOR Lab in [address] Metformin 1000 mg twice daily We may need to add medication, including insulin, if you A1C is too high We want your morning glucose to be in 80-120 range Omeprazole once daily [facility]: [facility] [email or web address] GE SCREEN OPERATOR documented in this encounter Progress Notes Abbie Molina APRN CNP - 06/01/2017 10:40 AM CST SUBJECTIVE: Ana Mcgowan is a 32 year old male who presents to clinic today for the following health issues: Diabetes Follow-up ?? Patient is checking blood sugars: not at all ?? Diabetic concerns: None and other - not taking blood sugars ?? Symptoms of hypoglycemia (low blood sugar): none ?? Paresthesias (numbness or burning in feet) or sores: No ?? Date of last diabetic eye exam: None He has stopped his medication for 3 months time BP Readings from Last 2 Encounters: 06/01/17 102/68 12/10/16 118/68 Hemoglobin A1C (%) Date Value 12/10/2016 10.4 (H) 03/17/2016 6.6 (H) LDL Cholesterol Calculated (mg/dL) Date Value 12/10/2016 145 (H) 01/13/2016 122 (H) ?? Amount of exercise or physical activity: 30 minutes 2 days a week ?? Problems taking medications regularly: Has not taken meds in a few months. ?? Medication side effects: none ?? Diet: Tries to eat healthy. Weight loss, fatigue, weak, voiding frequently and thirst Discussed all related to blood sugar being out of control Problem list and histories reviewed & adjusted, as indicated. Additional history: as documented Patient Active Problem List Diagnosis ??? Sinus tachycardia ??? Chest pain ??? Episodic cluster headache, not intractable ??? Non morbid obesity due to excess calories ??? Uncontrolled type 2 diabetes mellitus without complication, without long- term current use of insulin (H) No past surgical history on file. Social History Substance Use Topics ??? Smoking status: Current Every Day Smoker Packs/day: 0.25 Years: 5.00 ??? Smokeless tobacco: Never Used ??? Alcohol use No Family History Problem Relation Age of Onset ??? Hypertension Father Reviewed and updated as needed this visit by clinical staffTobacco Meds Soc Hx Reviewed and updated as needed this visit by Provider ROS: Constitutional, HEENT, cardiovascular, pulmonary, GI, , musculoskeletal, neuro, skin, endocrine and psych systems are negative, except as otherwise noted. OBJECTIVE: BP 102/68 (BP Location: Left arm, Patient Position: Chair, Cuff Size: Adult Large) Pulse 92 Temp98.3 ??F (36.8 ??C) (Oral) Resp 12 Ht 5' 9 (1.753 m) Wt 206 lb (93.4 kg) SpO2 100% BMI 30.42 kg/m2 Body mass index is 30.42 kg/(m^2). GENERAL:alert and no distress HENT: ear canals and TM's normal, nose and mouth without ulcers or lesions RESP: lungs clear to auscultation - no rales, rhonchi or wheezes CV: regular rate and rhythm, normal S1 S2, no S3 or S4, no murmur, click or rub, no peripheral edemaand peripheral pulses strong ABDOMEN: soft, epigastric tender, no hepatosplenomegaly, no masses and bowel sounds normal MS: no gross musculoskeletal defects noted, no edema NEURO: Normal strength and tone, mentation intact and speech normal PSYCH: mentation appears normal, affect normal/bright Diagnostic Test Results: Labs ASSESSMENT/PLAN: 1. Uncontrolled type 2 diabetes mellitus without complication, without long-term current use of insulin (H) Has been off medication - order for DME; Equipment being ordered: All diabetic testing supplies including glucose monitor covered by insurance, test strips, lancets and solution for testing 2-3 times per day. Dispense: 3 Month; Refill: 3 - Comprehensive metabolic panel - TSH with free T4 reflex - Lipid panel reflex to direct LDL Fasting - CBC with platelets differential - Albumin Random Urine Quantitative with Creat Ratio - metFORMIN (GLUCOPHAGE) 1000 MG tablet; Take 1 tablet (1,000 mg) by mouth 2 times daily (with meals) Dispense: 60 tablet; Refill: 1 - Hemoglobin A1c - BRIDGES AND BUILDINGS SUPERVISOR REFERRAL - OPHTHALMOLOGY ADULT REFERRAL 2. Non morbid obesity due to excess calories 3. Other fatigue Related to being not treated for diabetes - order for DME; Equipment being ordered: All diabetic testing supplies including glucose monitor covered by insurance, test strips, lancets and solution for testing 2-3 times per day. Dispense: 3 Month; Refill: 3 - Comprehensive metabolic panel - TSH with free T4 reflex - CBC with platelets differential - Hemoglobin A1c - BRIDGES AND BUILDINGS SUPERVISOR REFERRAL 4. CARDIOVASCULAR SCREENING; LDL GOAL LESS THAN 100 - Comprehensive metabolic panel - Lipid panel reflex to direct LDL Fasting 5. Abdominal pain, epigastric - omeprazole (PRILOSEC) 20 MG CR capsule; Take 1 capsule (20 mg) by mouth daily Dispense: 90 capsule; Refill: 1 Patient Instructions Lab in [address] Metformin 1000 mg twice daily We may need to add medication, including insulin, if you A1C is too high We want your morning glucose to be in 80-120 range Omeprazole once daily [facility]: [facility] [email or web address] Abbie Molina APRN CNP [facility] GE SCREEN OPERATOR documented in this encounter Nursing Notes Alyx Phillips - 06/01/2017 10:40 AM CST Chief Complaint Patient presents with ??? Recheck Medication ??? Diabetes Initial BP 102/68 (BP Location: Left arm, Patient Position: Chair, Cuff Size: Adult Large) Pulse 92 Temp 98.3 ??F (36.8 ??C) (Oral) Resp 12 Ht 5' 9 (1.753 m) Wt 206 lb (93.4 kg) SpO2 100% BMI 30.42 kg/m2 Estimated body mass index is 30.42 kg/(m^2) as calculated from the following: Height as of this encounter: 5' 9 (1.753 m). Weight as of this encounter: 206 lb (93.4 kg). Medication Reconciliation: complete R.Jacqueline, AUTO BODY TECHNICIAN GE SCREEN OPERATOR documented in this encounter Miscellaneous Notes Addendum Note - Abbie Molina APRN CNP - 06/01/2017 2:57 PM SEWAGE SCREEN OPERATOR Addended by: ABBIE MOLINA on: 06/01/2017 02:57 PM Modules accepted: Orders GE SCREEN OPERATOR documented in this encounter Plan of Treatment Upcoming Encounters Date Type Specialty Care Team Description 06/16/2022 Virtual Visit Endocrinology Gilberto Weathers MD [address] [place], [place] [phone] Ky Marcos MD [address] [place], [place] [phone] Scheduled Referrals Name Type Priority Associated Diagnoses Order S chedule OPHTHALMOLOGY ADULT Referral Routine Uncontrolled type 2 O rdered: 06/01/2017 REFERRAL diabetes mellitus without complication, without long-term current use of insulin (H) documented as of this encounter Procedures Procedure Name Priority Date/Time Associated Diagnosis Comme nts ALBUMIN RANDOM URINE Routine 06/01/2017 11:15 Uncontrolled typ e 2 Results for this QUANTITATIVE AM SEWAGE SCREEN OPERATOR diabetes mellitus procedure are in without the results complication, section. without long-term current use of insulin (H) CBC WITH PLATELETS & Routine 06/01/2017 11:14 Uncontrolled typ e 2 Results for this DIFFERENTIAL AM SEWAGE SCREEN OPERATOR diabetes mellitus procedure are in without the results complication, section. without long-term current use of insulin (H) Other fatigue TSH WITH FREE T4 Routine 06/01/2017 11:14 Uncontrolled type 2 Results for this REFLEX AM SEWAGE SCREEN OPERATOR diabetes mellitus procedure are in without the results complication, section. without long-term current use of insulin (H) Other fatigue LIPID REFLEX TO DIRECT Routine 06/01/2017 11:14 Uncontrolled t ype 2 Results for this LDL PANEL AM SEWAGE SCREEN OPERATOR diabetes mellitus procedure are in without the results complication, section. without long-term current use of insulin (H) CARDIOVASCULAR SCREENING; LDL GOAL LESS THAN 100 HEMOGLOBIN A1C Routine 06/01/2017 11:14 Uncontrolled type 2 Re sults for this AM SEWAGE SCREEN OPERATOR diabetes mellitus procedure are in without the results complication, section. without long-term current use of insulin (H) Other fatigue COMPREHENSIVE Routine 06/01/2017 11:14 Uncontrolled type 2 Res ults for this METABOLIC PANEL AM SEWAGE SCREEN OPERATOR diabetes mellitus procedu re are in without the results complication, section. without long-term current use of insulin (H) Other fatigue CARDIOVASCULAR SCREENING; LDL GOAL LESS THAN 100 documented in this encounter Results Albumin Random Urine Quantitative with Creat Ratio (06/01/2017 11:15 AM SEWAGE SCREEN OPERATOR) P athologist Signature Creatinine 676 mg/dL 06/02/2017 [place] Urine 4:36 PM [facility] Albumin Urine 37 mg/L 06/02/2017 [place] mg/L 4:07 PM [facility] Albumin Urine 5.50 0 - 17 06/02/2017 [place] mg/g Cr mg/g Cr 4:36 PM [facility] Specimen Anatomical Collection Method Collection Time Receive d Time (Source) Location / / Volume Laterality Urine specimen 06/01/2017 11:15 8 (specimen) AM SEWAGE SCREEN OPERATOR 11:20 AM SEWAGE SCREEN OPERATOR Abbie Molina APRN, CNP LAB - URINE ORDERABLES Performing Organization Address City/State/ZIP Code Phon e Number M [facility] [address] [phone] [facility] [address] [address], [place] [phone] [facility] [address] [place], [place] [address] [place] (ABNORMAL) Hemoglobin A1c (06/01/2017 11:14 AM SEWAGE SCREEN OPERATOR) Patholo gist Method Time Signature Hemoglobin A1C 11.9 (H) 4.3 - 6.0 06/01/2017 [place] % 1:17 PM [facility] Comment: Results confirmed by repeat peg t Specimen Anatomical Collection Method Collection Time Receive d Time (Source) Location / / Volume Laterality Blood specimen 06/01/2017 11:14 8 (specimen) AM SEWAGE SCREEN OPERATOR 11:19 AM SEWAGE SCREEN OPERATOR Abbie Tameka Creagan HISTOLOGY TEACHER EDUCATIONAL TECHNOLOGY SPECIALIST LAB - BLOOD ORDERABLES Performing Organization Address City/State/ZIP Code Phon e Number [facility] [address] [place], [place] [address] [address] CBC with platelets differential (06/01/2017 11:14 AM SEWAGE SCREEN OPERATOR) [facility] gist Method Time Signature WBC 8.7 4.0 - 06/01/2017 [facility] 11.0 1:12 PM SEWAGE SCREEN OPERATOR CLINICS 10e9/L [place] RBC Count 5.12 4.4 - 5.9 06/01/2017 [facility] 10e12/L 1:12 PM SEWAGE SCREEN OPERATOR CLINICS [place] Hemoglobin 15.9 13.3 - 06/01/2017 [facility] 17.7 g/dL 1:12 PM SEWAGE SCREEN OPERATOR [facility] Hematocrit 47.5 40.0 - 06/01/2017 [facility] 53.0 % 1:12 PM SEWAGE SCREEN OPERATOR [facility] MCV 93 78 - 100 06/01/2017 [facility] fl 1:12 PM SEWAGE SCREEN OPERATOR [facility] MCH 31.1 26.5 - 06/01/2017 [facility] 33.0 pg 1:12 PM SEWAGE SCREEN OPERATOR CLINICS [place] MCHC 33.5 31.5 - 06/01/2017 [facility] 36.5 g/dL 1:12 PM SEWAGE SCREEN OPERATOR [facility] RDW 13.7 10.0 - 06/01/2017 [facility] 15.0 % 1:12 PM SEWAGE SCREEN OPERATOR [facility] Platelet Count 346 150 - 450 06/01/2017 [facility] 10e9/L 1:12 PM [facility] Diff Method Automated 06/01/2017 [facility] Method 1:12 PM SEWAGE SCREEN OPERATOR [facility] % Neutrophils 41.4 % 06/01/2017 [facility] 1:12 PM SEWAGE SCREEN OPERATOR [facility]INICS [place] % Lymphocytes 45.9 % 06/01/2017 [facility] 1:12 PM SEWAGE SCREEN OPERATOR [facility]ICS [place] % Monocytes 9.5 % 06/01/2017 [facility] 1:12 PM SEWAGE SCREEN OPERATOR [facility] [place] % Eosinophils 3.1 % 06/01/2017 [facility] 1:12 PM SEWAGE SCREEN OPERATOR [facility] [place] % Basophils 0.1 % 06/01/2017 [facility] 1:12 PM SEWAGE SCREEN OPERATOR [facility] [place] Absolute 3.6 1.6 - 8.3 06/01/2017 [facility] Neutrophil 10e9/L 1:12 PM SEWAGE SCREEN OPERATOR [facility] [place] Absolute 4.0 0.8 - 5.3 06/01/2017 [facility] Lymphocytes 10e9/L 1:12 PM [facility] Absolute 0.8 0.0 - 1.3 06/01/2017 [place] Monocytes 10e9/L 1:12 PM [facility] Absolute 0.3 0.0 - 0.7 06/01/2017 [place] Eosinophils 10e9/L 1:12 PM [facility] Absolute 0.0 0.0 - 0.2 06/01/2017 [place] Basophils 10e9/L 1:12 PM [facility] Specimen Anatomical Collection Method Collection Time Receive d Time (Source) Location / / Volume Laterality Blood specimen 06/01/2017 11:14 8 (specimen) AM SEWAGE SCREEN OPERATOR 11:19 AM SEWAGE SCREEN OPERATOR Abbie Molina APRN EDUCATIONAL TECHNOLOGY SPECIALIST LAB - BLOOD ORDERABLES Performing Organization Address City/State/ZIP Code Phon e Number [facility] [address] [place], [place] [address] [address] (ABNORMAL) Lipid panel reflex to direct LDL Fasting (06/01/2017 11:14 AM SEWAGE SCREEN OPERATOR) P athologist Signature Cholesterol 208 (H) <200 mg/dL 06/02/2017 [facility] 1:50 PM [facility] Comment: Desirable: <200 mg/dl Triglycerides 178 (H) <150 mg/dL 06/02/2017 1:50 PM [facility] Comment: Borderline high: ??150-199 mg/dl High: ? 200-499 mg/dl Very high: ? >499 mg/dl HDL Cholesterol 43 >39 mg/dL 06/02/2017 1:58 PM [facility] IEW [facility] LDL Cholesterol 129 (H) <100 mg/dL 06/02/2017 1:58 PM [facility] Calculated [facility] Comment: Above desirable: ??100-129 mg/dl Borderline High: ??130-159 mg/dL High: ? 160-189 mg/dL Very high: ? >189 mg/dl Non HDL Cholesterol 165 (H) <130 mg/dL 06/02/2017 1:58 PM [facility] Comment: Above Desirable: ??130-159 mg/dl Borderline high: ??160-189 mg/dl High: ? 190-219 mg/dl Very high: ? >219 mg/dl Specimen Anatomical Collection Method Collection Time Receive d Time (Source) Location / / Volume Laterality Blood specimen 06/01/2017 11:14 8 (specimen) AM SEWAGE SCREEN OPERATOR 11:19 AM SEWAGE SCREEN OPERATOR Abbie Molina APRN EDUCATIONAL TECHNOLOGY SPECIALIST LAB - BLOOD ORDERABLES Performing Organization Address City/[facility]/ZIP Code Phon e Number [facility] [address], [place] [address] TSH with free T4 reflex (06/01/2017 11:14 AM SEWAGE SCREEN OPERATOR) P athologist Signature TSH 1.98 0.40 - 4.00 06/02/2017 [facility] mU/L 1:58 PM [facility] Specimen Anatomical Collection Method Collection Time Receive d Time (Source) Location / / Volume Laterality Blood specimen 06/01/2017 11:14 8 (specimen) AM SEWAGE SCREEN OPERATOR 11:19 AM SEWAGE SCREEN OPERATOR Abbie Molina APRN, CNP LAB - BLOOD ORDERABLES Performing Organization Address City/[facility]/ZIP Code Phon e Number [facility] [address] [place] [address] (ABNORMAL) Comprehensive metabolic panel (06/01/2017 11:14 AM SEWAGE SCREEN OPERATOR) [facility] gist Method Time Signature Sodium 134 133 - 144 06/02/2017 [place] mmol/L 1:50 PM [facility] Potassium 3.9 3.4 - 5.3 06/02/2017 [place] mmol/L 1:50 PM [facility] Chloride 99 94 - 109 06/02/2017 [place] mmol/L 1:50 PM [facility] Carbon Dioxide 25 20 - 32 06/02/2017 [place] mmol/L 1:50 PM [facility] Anion Gap 10 3 - 14 06/02/2017 [place] mmol/L 1:50 PM [facility] Glucose 274 (H) 70 - 99 06/02/2017 [place] mg/dL 1:50 PM [facility] Urea Nitrogen 9 7 - 30 06/02/2017 [place] mg/dL 1:50 PM [facility] Creatinine 0.68 0.66 - 06/02/2017 [place] 1.25 mg/dL 1:50 PM [facility] GFR Estimate >90 >60 06/02/2017 [place] mL/min/1.7 1:50 PM [facility] m2 [facility] Comment: Non GFR Calc GFR Estimate If >90 >60 mL/min/1.7m2 06/02/2017 1:50 P M [facility] Black [facility] Comment: GFR Calc Calcium 8.3 (L) 8.5 - 10.1 06/02/2017 1:50 PM [facility] mg/dL [facility] Bilirubin Total 0.5 0.2 - 1.3 06/02/2017 1:50 PM [facility] mg/dL [facility] Albumin 3.5 3.4 - 5.0 g/dL 06/02/2017 1:50 PM [facility] Protein Total 6.9 6.8 - 8.8 g/dL 06/02/2017 1:50 PM [facility] Alkaline Phosphatase 126 40 - 150 U/L 06/02/2017 1:50 PM [facility] ALT 24 0 - 70 U/L 06/02/2017 1:50 PM [place] C [facility] AST 13 0 - 45 U/L 06/02/2017 1:50 PM [place] C LINICS [facility] Specimen Anatomical Collection Method Collection Time Receive d Time (Source) Location / / Volume Laterality Blood specimen 06/01/2017 11:14 8 (specimen) AM SEWAGE SCREEN OPERATOR 11:19 AM SEWAGE SCREEN OPERATOR Abbie Molina APRN EDUCATIONAL TECHNOLOGY SPECIALIST LAB - BLOOD ORDERABLES Performing Organization Address City/State/ZIP Code Phon e Number [facility] [address] [place] [address] documented in this encounter Visit Diagnoses Diagnosis Uncontrolled type 2 diabetes mellitus wi thout complication, without long-term current use of insulin - Primary Non morbid obesity due to excess calorie s Other fatigue CARDIOVASCULAR SCREENING; LDL GOAL LESS THAN 100 Abdominal pain, epigastric documented in this encounter Care Teams Upsetter Helper Relationship Specialty Start Date End Date Gilberto Weathers MD PCP - General Internal Medicine 01/13/16 [address] [place] [address] documented as of this encounter
--- OUTSIDE RECORDS SUMMARY | 2022-03-05 03:58 | XMS_ITS | Encounter Summary ---
:1985 Author Organization [facility] Address [address] [place] [id number] Care Team Providers Name Role Phone Gilberto Weathers MD Primary Care Provider Reason for Visit Reason Comments No Show Encounter Details Date Type Department Care Team Description 02/07/2016 Allied Health/Nurse Health [facility] No Show Visit [place] [phone] Social History Tobacco Use Types Packs/Day Years [...] CDT documented as of this encounter Progress Madison Hernandez - 02/07/2016 2:54 PM CDT Patient no-showed today's appointment for diabetes education. Madison Ruano RD, LD, CDE documented in this encounter Plan of Treatment Upcoming Encounters Date Type Specialty Care Team Description 06/16/2022 Virtual Visit Endocrinology Gilberto Weathers MD [address] [place] [address] Ky Marcos MD [address] [place] [address] documented as of this encounter Visit Diagnoses Diagnosis NO SHOW - Primary documented in this encounter Care Teams Handy Worker Relationship Specialty Start Date End Date Gilberto Weathers MD PCP - General Internal Medicine 01/13/16 [address] [place] [address] documented as of this encounter
--- OUTSIDE RECORDS SUMMARY | 2022-03-05 03:58 | XMS_ITS | Encounter Summary ---
:1985 Author Organization [place] Address [address] [facility] [place] [address] Care Team Providers Name Role Phone Gilberto Weathers MD Primary Care Provider Reason for Visit Reason Comments No Show Encounter Details Date Type Department Care Team Description 12/15/2016 Office Visit [facility] Conner Vail NO S HOW (Primary Dx) [facility] [place] [address] [place], [place] [id number] [phone] Social History Tobacco Use Types Packs/Day Years [...] documented as of this encounter Progress Notes Conner Vail MD - 12/15/2016 11:00 AM CDT No show. documented in this encounter Plan of Treatment Upcoming Encounters Date Type Specialty Care Team Description 06/16/2022 Virtual Visit Endocrinology Gilberto Weathers MD [address] [place], [place] [address] Ky Marcos MD [address] [place] [address] documented as of this encounter Visit Diagnoses Diagnosis NO SHOW - Primary documented in this encounter Care Teams Mysql Dba Relationship Specialty Start Date End Date Gilberto Weathers MD PCP - General Internal Medicine 01/13/16 [address] [place] [address] documented as of this encounter
--- OUTSIDE RECORDS SUMMARY | 2022-03-05 03:58 | XMS_ITS | Encounter Summary ---
:1985 Author Organization [place] Address [facility] [place] [address] Care Team Providers Name Role Phone Gilberto Weathers MD Primary Care Provider Reason for Visit Reason Onset Date Comments Diabetes Education 01/07/2017 Encounter Details Date Type Department Care Team Description 01/07/2017 Telephone [facility] Conner Vail MD Diabetes Education [place] [address] [facility] [address] [place], [place] [id number] [place] [address] [place] [address] Social History Tobacco Use Types Packs/Day Years [...] this encounter Miscellaneous Notes Telephone Encounter - Stephanie Chaevziesha - 01/08/2017 12:11 PM CDT Diabetes Education Scheduling Outreach #2: Call to patient to schedule. Left message with phone number to call to schedule. Letter sent to patient requesting to call to schedule. Anish Chavezrebeca [facility] Scheduling Telephone Encounter - Stephanie Chaveziesha - 01/07/2017 11:12 AM CDT Diabetes Education Scheduling Outreach #1: Call to patient to schedule. Left message with phone number to call to schedule. Plan for 2nd outreach attempt within 1 week. Anish Chavezrebeca Rothman [facility] Scheduling documented in this encounter Plan of Treatment Upcoming Encounters Date Type Specialty Care Team Description 06/16/2022 Virtual Visit Endocrinology Gilberto Weathers MD [address] [place] [address] Ky Marcos MD [address] [place], [place] [id number] documented as of this encounter Visit Diagnoses Not on filedocumented in this encounter Care Teams [employer] Relationship Specialty Start Date End Date Gilberto Weathers MD PCP - General Internal Medicine 01/13/16 [address] [place] [address] documented as of this encounter
--- OUTSIDE RECORDS SUMMARY | 2022-03-05 03:58 | XMS_ITS | Encounter Summary ---
:1985 Author Organization [facility] Address [address] [place] [address] Care Team Providers Name Role Phone Gilberto Weathers MD Primary Care Provider Reason for Referral Consultation - Closed Specialty Diagnoses / Procedures Referred By Contact Refer red To Contact Diagnoses Overweight Gilberto Weathers MD [address] [place] [address] Referral ID Status Reason Start Date Expiration Date Visits Requ ested Visits Authorized [id number] Closed 03/17/2016 03/17/2017 1 1 Reason for Visit Reason Comments Diabetes Encounter Details Date Type Department Care Team Description 03/17/2016 Office Visit [facility] Gilberto Weathers Con trolled type 2 diabetes mellitus without complication, without long-term current use of insulin (H) (Primary Dx); [facility] [place] Tobacco use disorder; [address] Overweight; [place], [place] Throat pain; [place] [address] Need for Tdap vaccination [id number] [phone] Social History Tobacco Use Types Packs/Day Years Used Date Smoking Tobacco: Every Day Cigarettes 0.3 5 Smokeless Tobacco: Never Tobacco Cessation: Ready to Quit: No; Co unseling Given: Yes Alcohol Use Standard Drinks/Week Comments [...] Sign Reading Time Taken Comments Blood Pressure 122/70 03/17/2016 10:04 AM CDT Pulse 70 03/17/2016 10:04 AM CDT Temperature 36.7 ??C (98.1 ??F) 03/17/2016 10:04 AM CDT Respiratory Rate 16 03/17/2016 10:04 AM CDT Oxygen Saturation 100% 03/17/2016 10:04 AM CDT Inhaled Oxygen Concentration - - Weight 106.1 kg (234 lb) 03/17/2016 10:04 AM CDT Height 180.3 cm (5' 11) 03/17/2016 10:04 AM CDT Body Mass Index 32.64 03/17/2016 10:04 AM CDT documented in this encounter Patient Instructions Patient InstructionsGia Hernandez LPN - 03/17/2016 10:07 AM CDT You can reach your [facility] Care Team any time of the day by calling [phone]. This number will put you in touch with the 24 hour nurse line even if the clinic is closed. The clinic hours for [facility] are: Wednesday through 7am to 6pm Wednesday 7am to 5pm Wednesday 8am to 12p for Pediatrics only. To contact your Financial Aid Officer please call [phone]. This is a direct number for your care team during clinic hours. [facility] is now open for your convenience: Wednesday through Wednesday 7:30am to 7pm Wednesday and Wednesday 9am to 3pm They are closed on all major holidays. documented in this encounter Progress Notes Gilberto Weathers MD - 03/17/2016 10:06 AM CDT SUBJECTIVE: Ana Mcgowan is a 30 year old male who presents to clinic today for the following health issues: Diabetes Follow-up ?? Patient is checking blood sugars: rarely. Results range from 136 to 150 ?? Diabetic concerns: None ?? Symptoms of hypoglycemia (low blood sugar): none ?? Paresthesias (numbness or burning in feet) or sores: No ?? Date of last diabetic eye exam: 02/22/16 Has H/O DM. On diet , exercise . Blood sugars are controlled. No parestesias. No hypoglycemias. Has h/o obesity , difficulty to lose weight. Has h/o smoking, decreased on Chantix. No SOB. Concern for pain in the feet , in the plantar fascia medially Has had sore throat, mild cough, chills. For a week. Discussed preventive measures. ?? Amount of exercise or physical activity: 2-3 days/week for an average of 15- 30 minutes ?? Problems taking medications regularly: No ?? Medication side effects: none ?? Diet: diabetic and carbohydrate counting PROBLEMS TO ADD ON... Problem list and histories reviewed & adjusted, as indicated. Additional history: as documented Problem list, Medication list, Allergies, and Medical/Social/Surgical histories reviewed in [facility] andupdated as appropriate. ROS: Constitutional, HEENT, cardiovascular, pulmonary, gi and gu systems are negative, except as otherwise noted. OBJECTIVE: BP 122/70 mmHg Pulse 70 Temp(Src) 98.1 ??F (36.7 ??C) (Oral) Resp 16 Ht 5' 11 (1.803 m) Wt 234 lb (106.142 kg) BMI 32.65 kg/m2 SpO2 100% Body mass index is 32.65 kg/(m^2). GENERAL: healthy, alert and no distress, overweight HENT: ear canals and TM's normal, nose and mouth without ulcers or lesions, pharyngeal erythema NECK: no adenopathy, no asymmetry, masses, or [...] no gross musculoskeletal defects noted, no edema Diagnostic Test Results: lab ASSESSMENT/PLAN: Problem List Items Addressed This Visit Diabetes mellitus type 2, controlled (H) - Primary Relevant Orders Hemoglobin A1c Other Visit Diagnoses Tobacco use disorder Relevant Medications varenicline (CHANTIX) 1 MG tablet Overweight Relevant Orders BARIATRIC ADULT REFERRAL Throat pain Relevant Orders Rapid strep screen Assess lab, consider Metformin Refer to weight loss clinic Cont medications Assess for strep pharyngitis Foot inserts for plantar fasciitis Follow-Up:in 6 months Gilberto Weathers MD [facility] documented in this encounter Nursing Notes Gia Hernandez LPN - 03/17/2016 10:06 AM CDT Chief Complaint Patient presents with ??? Diabetes Initial BP 122/70 mmHg Pulse 70 Temp(Src) 98.1 ??F (36.7 ??C) (Oral) Resp 16 Ht 5' 11 (1.803 m) Wt 234 lb (106.142 kg) BMI 32.65 kg/m2 SpO2 100% Estimated body mass index is 32.65 kg/(m^2) as calculated from the following: Height as of this encounter: 5' 11 (1.803 m). Weight as of this encounter: 234 lb (106.142 kg). BP completed using cuff size: X-large documented in this encounter Miscellaneous Notes Addendum Note - Gia Hernandez LPN - 03/17/2016 11:28 AM CDT Addended by: JODIE HERNANDEZ on: 03/17/2016 11:28 AM Modules accepted: Orders Addendum Note - Francesca Barbosa - 03/17/2016 11:10 AM CDT Addended by: FRANCESCA BARBOSA on: 03/17/2016 11:10 AM Modules accepted: Orders documented in this encounter Plan of Treatment Upcoming Encounters Date Type Specialty Care Team Description 06/16/2022 Virtual Visit Endocrinology Gilberto Weathers MD [address] [place] [address] Ky Marcos MD [address] [place] [address] Scheduled Referrals Name Type Priority Associated Diagnoses Order S chedule BARIATRIC ADULT REFERRAL Referral Routine Overweight Ord ered: 03/17/2016 documented as of this encounter Procedures Procedure Name Priority Date/Time Associated Comments Diagnosis RAPID STREP SCREEN Routine 03/17/2016 10:50 AM Throat pain Re sults for this THROAT SWAB CDT procedure are i n the results section. BETA HEMOLYTIC STREP Routine 03/17/2016 10:50 AM Throat pain Results for this GROUP A CULTURE CDT procedure ar e in the results section. HEMOGLOBIN A1C Routine 03/17/2016 10:48 AM Controlled type 2 R esults for this CDT diabetes mellitus procedure are in without the results complication, section. without long-term current use of insulin (H) documented in this encounter Results Beta strep group A culture (03/17/2016 10:50 AM CDT) Component Value Ref Test Analysis Performed At [facility] Range Method Time Signature Specimen Throat [place] Description [facility] Culture Micro No Beta [place] Streptococcus CLINICS isolated INDEPENDENCE Micro Report FINAL 03/19/2016 [place] Status [facility] Specimen Anatomical Collection Method Collection Time Receive d Time (Source) Location / / Volume Laterality Specimen from 03/17/2016 10:50 03/17/2016 throat AM CDT 11:13 AM CDT (specimen) Gilberto Weathers MD LAB - MICRO GENERAL ORDERABL ES Performing Organization Address City/State/ZIP Code Phon e Number [facility] [address] [place], [place] [address] [address] Rapid strep screen (03/17/2016 10:50 AM CDT) Component Value Ref Test Analysis Performed At [facility] gist Range Method Time Signature Specimen Throat [place] Description [facility] Rapid Strep A NEGATIVE: No Group A strepto coccal antigen detected by immunoassay, await [place] Screen culture report. [facility] Micro Report FINAL 03/17/2016 [facility] Status [facility] Specimen Anatomical Collection Method Collection Time Receive d Time (Source) Location / / Volume Laterality Specimen from 03/17/2016 10:50 03/17/2016 throat AM CDT 11:11 AM CDT (specimen) Gilberto Weathers MD LAB - MICRO GENERAL ORDERABL ES Performing Organization Address City/[facility]/ZIP Code Phon e Number [facility] [address] [place], [place] [address] [address] (ABNORMAL) Hemoglobin A1c (03/17/2016 10:48 AM CDT) Analysis Performed At Patho logist Time Signature Hemoglobin A1C 6.6 (H) 4.3 - 6.0 [facility] % [facility] Specimen Anatomical Collection Method Collection Time Receive d Time (Source) Location / / Volume Laterality Blood specimen 03/17/2016 10:48 6 (specimen) AM CDT 10:53 AM CDT Gilberto Weathers MD LAB - BLOOD ORDERABLES Performing Organization Address City/[facility]/ZIP [facility] [place] Number [facility] [address] [place], [place] [address] [address] documented in this encounter Visit Diagnoses Diagnosis Controlled type 2 diabetes mellitus with out complication, without long-term current use of insulin (H) - Primary Tobacco use disorder Overweight Throat pain Need for Tdap vaccination Need for prophylactic vaccination with c ombined xjfjvhlync-nneqyku-jeofnlaeh (DTP) vaccine documented in this encounter Care Teams Cover Cutter Machine Relationship Specialty Start Date End Date Gilberto Weathers MD PCP - General Internal Medicine 01/13/16 [address] [place] [address] documented as of this encounter
--- OUTSIDE RECORDS SUMMARY | 2022-03-05 03:58 | XMS_ITS | Encounter Summary ---
:1985 Author Organization [place] Address [address] [facility] [place] [address] Care Team Providers Name Role Phone Otilia Recinos MD Primary Care Provider Reason for Visit Reason Comments Chest Pain heart beating fast. chest pa in across upper chest area. an hour ago for chest pain. have had chest p ain before. first time went to [facility] for chest pain. Encounter Details Date Type Department Care Team Description 04/21/2015 Emergency [facility] Lalitha Goyal ee, Chest wall pain; Emergency Department Elevated blood sugar [address] [facility] [address] [place] [address] [place] [address] (Wo rk) Social History Tobacco Use Types [...] Sign Reading Time Taken Comments Blood Pressure 118/65 04/21/2015 2:40 AM SCORING MACHINE OPERATOR Pulse - - Temperature 36.6 ??C (97.8 ??F) 04/21/2015 2:40 AM SCORING MACHINE OPERATOR Respiratory Rate 16 04/21/2015 2:40 AM SCORING MACHINE OPERATOR Oxygen Saturation 100% 04/21/2015 2:40 AM SCORING MACHINE OPERATOR Inhaled Oxygen Concentration - - Weight - - Height - - Body Mass Index - - documented in this encounter Discharge Instructions Discharge InstructionsLalitha Fabian MD - 04/21/2015 2:33 AM CST You have been seen in the ER for chest wall pain (pain in the muscles of the chest wall). You shoulduse ibuprofen to help with this pain. Your EKG was the same as it was before, and your labs look good. You need to establish primary care at your clinic as your blood sugar was high and you need to seeyour clinic for this. Call to make an appointment with your clinic as soon as possible. ING MACHINE OPERATOR documented in this encounter Medications at Time of Discharge Medication Sig Dispensed Refills Start Date End Date Acetaminophen (TYLENOL Take by mouth as 0 06/11/2015 PO) needed for mild pain or fever cetirizine (ZYRTEC) 10 MG Take 10 mg by mouth 0 06/11/2015 tablet daily IBUPROFEN PO Take by mouth as 0 2015 needed for moderate pain metFORMIN (GLUCOPHAGE) Take 1 tablet (500 60 tablet 1 02/0406/11/2015 500 MG tabletIndications: mg) by mouth 2 times Diabetes mellitus, type 2 daily (with meals) (H) documented as of this encounter ED Notes Lalitha Fabian MD - 04/21/2015 12:59 AM CST Images from the original note were not included. History Chief Complaint Patient presents with ??? Chest Pain heart beating fast. chest pain across upper chest area. an hour ago for chest pain. have had chest pain before. first time went to [facility] for chest pain. HPI Comments: This is a 29 years old male that has a past medical history of DM2 who presented to the ED today with chest pain. Patient complained of bilateral chest pain that started about an hour ago. Pain started suddenly while he was laying down trying to sleep. He described pain as sharp in nature, 10/10 in severity, exacerbated by breathing and movement and non-radiating. Pain is associated with increased heart rate and palpitation. He reports of similar pain in the past but denies history of OR and PE. Pain is constant and present in the ED but palpitation has improved. He denies drinking coffee, energy drink, or OTC stimulants. He smokes cigarettes daily and admits to smoking prior to bed. Patient denies headaches, shortness of breath, dizziness, numbness and tingling sensation of exts, and peripheral edema. I have reviewed the Medications, Allergies, Past Medical and Surgical History, and Social History inthe Gist system. Review of Systems Constitutional: Negative for fever, activity change, appetite change and fatigue. HENT: Negative. Eyes: Negative for visual disturbance. Respiratory: Negative for apnea, cough, chest tightness and shortness of breath. Cardiovascular: Positive for chest pain and palpitations. Negative for leg swelling. Gastrointestinal: Negative for nausea, vomiting, abdominal pain and abdominal distention. Genitourinary: Negative for dysuria, urgency, frequency and flank pain. Musculoskeletal: Negative for myalgias, back pain and gait problem. Skin: Negative for rash. Neurological: Negative for dizziness, weakness, light-headedness, numbness and headaches. Physical Exam BP: 129/50 mmHg Heart Rate: 100 Temp: 97.8 ??F (36.6 ??C) Resp: 16 SpO2: 95 % Physical Exam Constitutional: He is oriented to person, place, and time. He appears well- developed and well-nourished. No distress. HENT: Head: Normocephalic and atraumatic. Right Ear: External ear normal. Left Ear: External ear normal. Nose: Nose normal. Mouth/Throat: Oropharynx is clear and moist. No oropharyngeal exudate. Eyes: Conjunctivae are normal. Neck: Neck supple. No JVD present. Cardiovascular: Normal rate, regular rhythm and normal heart sounds. Pulmonary/Chest: Effort normal and breath sounds normal. No respiratory distress. He has no wheezes.He has no rales. He exhibits tenderness. Abdominal: Soft. Bowel sounds are normal. He exhibits no distension. There is no tenderness. There is no rebound and no guarding. Musculoskeletal: He exhibits no edema. Neurological: He is alert and oriented to person, place, and time. Skin: Skin is warm. No rash noted. He is not diaphoretic. Psychiatric: Patient appears anxious ED Course Procedures EKG Interpretation: Interpreted by Jon Moses/ Time reviewed: 0:35:22 Symptoms at time of EKG: Chest pain and palpitation Rhythm: normal sinus Rate: Normal [place]: Normal Ectopy: none Conduction: normal ST Segments/ T Waves: Non-specific T wave abnormality Q Waves: none Comparison to prior: Compared to EKG on Clinical Impression: no changes Critical Care time: none [facility] Diagnoses: None Results for orders placed or performed during the hospital encounter of 04/21/15 (from the past 24 hour(s)) Basic metabolic panel Result Value Ref Range Sodium 140 133 - 144 mmol/L Potassium 3.3 (L) 3.4 - 5.3 mmol/L Chloride 105 94 - 109 mmol/L Carbon Dioxide 27 20 - 32 mmol/L Anion Gap 8 3 - 14 mmol/L Glucose 178 (H) 70 - 99 mg/dL Urea Nitrogen 13 7 - 30 mg/dL Creatinine 0.91 0.66 - 1.25 mg/dL GFR Estimate >90 Non GFR Calc >60 mL/min/1.7m2 GFR Estimate If Black >90 GFR Calc >60 mL/min/1.7m2 Calcium 8.3 (L) 8.5 - 10.1 mg/dL CBC with platelets differential Result Value Ref Range WBC 9.3 4.0 - 11.0 10e9/L RBC Count 4.68 4.4 - 5.9 10e12/L Hemoglobin 15.2 13.3 - 17.7 g/dL Hematocrit 44.8 40.0 - 53.0 % MCV 96 78 - 100 fl MCH 32.5 26.5 - 33.0 pg MCHC 33.9 31.5 - 36.5 g/dL RDW 14.0 10.0 - 15.0 % Platelet Count 324 150 - 450 10e9/L Diff Method Automated Method % Neutrophils 41.8 % % Lymphocytes 46.7 % % Monocytes 8.6 % % Eosinophils 2.6 % % Basophils 0.1 % % Immature Granulocytes 0.2 % Absolute Neutrophil 3.9 1.6 - 8.3 10e9/L Absolute Lymphocytes 4.4 0.8 - 5.3 10e9/L Absolute Monoctyes 0.8 0.0 - 1.3 10e9/L Absolute Eosinophils 0.2 0.0 - 0.7 10e9/L Absolute Basophils 0.0 0.0 - 0.2 10e9/L Abs Immature Granulocytes 0.0 0 - 0.4 10e9/L Troponin I Result Value Ref Range Troponin I ES 0.000 - 0.045 ug/L <0.015 The 99th percentile for upper reference range is 0.045 ug/L. Troponin values in the range of 0.045 - 0.120 ug/L may be associated with risks of adverse clinical events. D dimer quantitative Result Value Ref Range D Dimer <0.3 0.0 - 0.50 ug/ml FEU Troponin POCT Result Value Ref Range Troponin I 0.00 0.00 - 0.10 ug/L Assessments & Plan (with Medical Decision Making) I have reviewed the nursing notes. I have reviewed the findings, diagnosis, plan and need for follow up with the patient. This is a 29 year old male that presented to the ED with chest pain and palpitations. Differential diagnosis includes ACS, Costochondritis, anxiety, PE, Aortic dissection (much less likely), and pneumothorax. EKG was ordered which revealed non-specific T wave abnormalities, No ST elevation/depression noted. PERC criteria cant be used to rule out PE because of HR/100. D-dimer was ordered which was normal making PE less likely. Costochondritis is very likely in the setting of reproducible chest-wall tenderness of palpation. Toradol 30mg was administered and patient reports improved pain.Chart review reveals that patient has been seen in the ED for similar symptoms without any identified etiology. He has missed several clinic appointments and when questioned he reports that he doesn't have a ride. Suspect chest wall pain. Advised motrin, f/u with clinic. Discharge Medication List as of 04/21/2015 2:39 AM Final diagnoses: Chest wall pain Elevated blood sugar 04/21/2015 [facility], EMERGENCY DEPARTMENT Jon Hernandez MD PGY1 [facility] Resident Pager: [phone] I have seen the patient with the above resident and I agree with the documentation. Briefly, this khoa 29-year-old who comes in with chest pain. This is his 3rd ER visit for chest pain. He has had a negative stress test just a few months ago. EKG shows no change and troponin is negative. D-dimer is negative. His pain is reproducible upon palpation. I advised that he use NSAIDs judiciously. Also, he needs to follow-up with his primary clinic given the fact that he is not taking anything for his elevated glucose and diabetes. He has missed multiple appointments with his primary clinic. Advised that it is his responsibility to make certain that he has a ride to his clinic and that if he no-shows recurrently, the clinics have the right to refuse to see him. Patient verbalizes understanding. MD Caren Dc Natasha Lee, MD 04/21/15 0701 ING MACHINE OPERATOR Bailey Birch RN - 04/21/2015 12:40 AM CST Pt is here for chest pain. Vitals are stable. Pt was trying to sleep and starting experiencing chestpain Slime Prasad RN - 04/21/2015 12:37 AM CST Labs drawn with IV insertion and sent. ING MACHINE OPERATOR documented in this encounter Plan of Treatment Upcoming Encounters Date Type Specialty Care Team Description 06/16/2022 Virtual Visit Endocrinology Gilberto Weathers MD [address] [place] [address] Ky Marcos MD [address] [place] [address] documented as of this encounter Procedures Procedure Name Priority Date/Time Associated Comments Diagnosis TROPONIN POCT Routine 04/21/2015 12:43 Results fo r this AM SCORING MACHINE OPERATOR procedure are i n the results section. EKG 12-LEAD, TRACING STAT 04/21/2015 12:35 Res ults for this ONLY AM SCORING MACHINE OPERATOR procedure are i n the results section. CBC WITH PLATELETS & STAT 04/21/2015 12:35 Res ults for this DIFFERENTIAL AM SCORING MACHINE OPERATOR procedure are i n the results section. TROPONIN I STAT 04/21/2015 12:35 Results for this AM SCORING MACHINE OPERATOR procedure are i n the results section. D DIMER QUANTITATIVE STAT 04/21/2015 12:35 Res ults for this AM SCORING MACHINE OPERATOR procedure are i n the results section. BASIC METABOLIC PANEL STAT 04/21/2015 12:35 Re sults for this AM SCORING MACHINE OPERATOR procedure are i n the results section. documented in this encounter Results Troponin POCT (04/21/2015 12:43 AM SCORING MACHINE OPERATOR) P athologist Signature Troponin I 0.00 0.00 - 0.10 POINT OF CARE ug/L TEST, HANDHELD METER Specimen Anatomical Collection Method Collection Time Receive d Time (Source) Location / / Volume Laterality 04/21/2015 12:43 04/21/2015 1:05 AM SCORING MACHINE OPERATOR AM SCORING MACHINE OPERATOR Lalitha Goyal MD LAB - ENTER/EDIT POCT Performing Organization Address City/State/ZIP Code Phon e Number [facility] POINT OF CARE TEST, HANDHELD METER POINT OF CARE TEST, HANDHELD METER EKG 12-lead, tracing only (04/21/2015 12:35 AM SCORING MACHINE OPERATOR) [facility] gist Method Time Signature Interpretation ECG Click View RADIOLOGY Image link RESULTS to view waveform and result Specimen (Source) Anatomical Collection Method Collection Time Re ceived Time Location / / Volume Laterality 04/21/2015 12:35 AM SCORING MACHINE OPERATOR Renny Dubois MD ECG ORDERABLES Performing Organization Address City/State/ZIP Code Phon e Number RADIOLOGY RESULTS D dimer quantitative (04/21/2015 12:35 AM SCORING MACHINE OPERATOR) P athologist Signature D Dimer <0.3 0.0 - 0.50 [facility] ug/ml [facility] Specimen Anatomical Collection Method Collection Time Receive d Time (Source) Location / / Volume Laterality Blood specimen 04/21/2015 12:35 5 1:15 (specimen) AM SCORING MACHINE OPERATOR AM SCORING MACHINE OPERATOR Lalitha Goyal MD LAB - BLOOD ORDERABLES Performing Organization Address City/State/ZIP Code Phon e Number [address] Troponin I (04/21/2015 12:35 AM SCORING MACHINE OPERATOR) [facility] Method Time Signature Troponin I ES <0.015 0.000 - [facility] The 99th percentile for uppe r reference range is 0.045 ug/L. ??Troponin values in 0.045 [facility] the range of 0.045 - 0.120 ug/L may be associated wit h risks of adverse ug/L [facility] clinical events. BANK Specimen Anatomical Collection Method Collection Time Receive d Time (Source) Location / / Volume Laterality Blood specimen 04/21/2015 12:35 5 (specimen) AM SCORING MACHINE OPERATOR 12:51 AM SCORING MACHINE OPERATOR Renny Dubois MD LAB - BLOOD ORDERABLES Performing Organization Address City/[facility]/ZIP Code Phon e Number [address] CBC with platelets differential (04/21/2015 12:35 AM SCORING MACHINE OPERATOR) [facility] Method Time Signature WBC 9.3 4.0 - [facility] 11.0 [facility] 10e9/L [facility] RBC Count 4.68 4.4 - 5.9 [facility] 10e12/L [facility] Hemoglobin 15.2 13.3 - [place] 17.7 g/dL [facility] Hematocrit 44.8 40.0 - [place] 53.0 % [facility] MCV 96 78 - 100 [facility] MCH 32.5 26.5 - [facility] 33.0 pg [facility] MCHC 33.9 31.5 - [facility] 36.5 g/dL [facility] RDW 14.0 10.0 - [facility] 15.0 % [facility] Platelet Count 324 150 - 450 [place] 10e9/L [facility] Diff Method Automated [facility] % Neutrophils 41.8 % [facility] % Lymphocytes 46.7 % [facility] % Monocytes 8.6 % [facility] % Eosinophils 2.6 % [facility] % Basophils 0.1 % [facility] % Immature 0.2 % [facility] Granulocytes [facility] Absolute 3.9 1.6 - 8.3 [facility] Neutrophil 10e9/L [facility] Absolute 4.4 0.8 - 5.3 [facility] Lymphocytes 10e9/L [facility] Absolute 0.8 0.0 - 1.3 [facility] Monocytes 10e9/L [facility] Absolute 0.2 0.0 - 0.7 [facility] Eosinophils 10e9/L [facility] Absolute 0.0 0.0 - 0.2 [facility] Basophils 10e9/L [facility] Abs Immature 0.0 0 - 0.4 [facility] Granulocytes 10e9/L [facility] Specimen Anatomical Collection Method Collection Time Receive d Time (Source) Location / / Volume Laterality Blood specimen 04/21/2015 12:35 5 (specimen) AM SCORING MACHINE OPERATOR 12:51 AM SCORING MACHINE OPERATOR Renny Dubois MD LAB - BLOOD ORDERABLES Performing Organization Address City/State/ZIP Code Phon e Number [facility] [address] [place] [address] [facility] (ABNORMAL) Basic metabolic panel (04/21/2015 12:35 AM SCORING MACHINE OPERATOR) P athologist Signature Sodium 140 133 - 144 [facility] mmol/L [facility] Potassium 3.3 (L) 3.4 - 5.3 [facility] mmol/L [facility] Comment: Specimen slightly hemolyzed, po tassium may be falsely elevated Chloride 105 94 - 109 mmol/L [facility] Carbon Dioxide 27 20 - 32 mmol/L [facility] Anion Gap 8 3 - 14 mmol/L [facility] Glucose 178 (H) 70 - 99 mg/dL [facility] Urea Nitrogen 13 7 - 30 mg/dL [facility] Creatinine 0.91 0.66 - 1.25 mg/dL [facility] GFR Estimate >90 >60 mL/min/1.7m2 [facility] Non GFR Calc [facility] GFR Estimate If Black >90 >60 mL/min/1.7m2 [facility] GFR Calc [facility] Calcium 8.3 (L) 8.5 - 10.1 mg/dL [facility] Specimen Anatomical Collection Method Collection Time Receive d Time (Source) Location / / Volume Laterality Blood specimen 04/21/2015 12:35 5 (specimen) AM SCORING MACHINE OPERATOR 12:51 AM SCORING MACHINE OPERATOR Renny Dubois MD LAB - BLOOD ORDERABLES Performing Organization Address City/State/ZIP Code Phon e Number [facility] [address] [place], [place] [id number] [place] [address] documented in this encounter Visit Diagnoses Diagnosis Chest wall pain Painful respiration Elevated blood sugar Other abnormal glucose documented in this encounter Administered Medications Inactive Administered Medications - up to 3 most recent administrations Medication Order MAR Action Action Date Dose Rate Site ketorolac (TORADOL) injection 30 mg Given 04/21/2015 1:34 AM SCORING MACHINE OPERATOR 30 mg 30 mg, Intravenous, ONCE, On 04/21/15 at 0127, For 1 dose documented in this encounter Active and Recently Administered Medications Times are shown in SCORING MACHINE OPERATOR. Scheduled Medication Order 04/19/2015 04/20/2015 04/21/2015 ketorolac (TORADOL) injection 30 mg (COMPLETED) 0134 (Given - Provider: Bailey Birch RN) 30 mg, Intravenous, ONCE, 04/21/15 at 0127, For 1 dose documented in this encounter Care Teams Manufacturing Lead Relationship Specialty Start Date End Date Otilia Recinos MD PCP - General Family Practice 04/02/15 01/12/16 documented as of this encounter
--- OUTSIDE RECORDS SUMMARY | 2022-03-05 03:58 | XMS_ITS | Encounter Summary ---
:1985 Author Organization [place] Address [address] [place] [address] Care Team Providers Name Role Phone Gilberto Weathers MD Primary Care Provider Reason for Visit Reason Onset Date Comments Referral 01/14/2016 hot press operator Encounter Details Date Type Department Care Team Description 01/14/2016 Telephone [facility] Gilberto Weathers, Ref erral (hot press operator) Clinic [place] [address] [place] [address] [address] [place] [address] [place], [place] [phone] (Wo rk) [address] [phone] Social History Tobacco Use Types Packs/Day Years [...] this encounter Miscellaneous Notes Telephone Encounter - Raquel Whitney RN - 01/14/2016 11:59 AM CDT Cld pt-left message relaying below. Telephone Encounter - Gilberto Weathers MD - 01/14/2016 11:47 AM CDT His diabetic education includes diet discussion. Telephone Encounter - Antonella Reeves RN - 01/14/2016 10:34 AM CDT Pt calls, he was supposed to get Pyrotechnist referral at [facility] yesterday for his diabetes. Pt states hedid not receive this, states he only received the referrals for diabetes education and ophthalmology. Pt asking to have order placed for hot press operator. Referral pended and sent to provider to review. documented in this encounter Plan of Treatment Upcoming Encounters Date Type Specialty Care Team Description 06/16/2022 Virtual Visit Endocrinology Gilberto Weathers MD [address] [place], [place] [id number] yK Marcos MD [address] [place] [address] documented as of this encounter Visit Diagnoses Not on filedocumented in this encounter Care Teams Color Consultant Relationship Specialty Start Date End Date Gilberto Weathers MD PCP - General Internal Medicine 01/13/16 [address] [address] documented as of this encounter
--- OUTSIDE RECORDS SUMMARY | 2022-03-05 03:58 | XMS_ITS | Encounter Summary ---
:1985 Author Organization [place] Address [address] [place] [address] Care Team Providers Name Role Phone Otilia Recinos MD Primary Care Provider Reason for Visit Reason Onset Date Comments No Show No Show 09/30/2015 Encounter Details Date Type Department Care Team Description 09/19/2015 Office Visit [facility] Otilia Dyson MD NO SHOW [address] [phone] [place] [address] [place] [address] (Wo rk) Social History Tobacco Use Types [...] documented as of this encounter Progress Notes [place], [place] K, ASPHALT ROLLER PERSON - 09/30/2015 7:51 AM CDT This patient was a no show for this scheduled appointment. documented in this encounter Plan of Treatment Upcoming Encounters Date Type Specialty Care Team Description 06/16/2022 Virtual Visit Endocrinology Gilberto Weathers MD [address] [place] [address] Ky Marcos MD [address] [place], [place] [id number] documented as of this encounter Visit Diagnoses Diagnosis NO SHOW documented in this encounter Care Teams Microarray Analyst Relationship Specialty Start Date End Date Otilia Recinos MD PCP - General Family Practice 04/02/15 01/12/16 documented as of this encounter
--- OUTSIDE RECORDS SUMMARY | 2022-03-05 03:58 | XMS_ITS | Encounter Summary ---
:1985 Author Organization [facility] Address [address] [facility] [place] [address] Care Team Providers Name Role Phone Otilia Recinos MD Primary Care Provider Reason for Visit Reason Comments Dental Pain Encounter Details Date Type Department Care Team Description 09/03/[address] [facility] Rk Ordaz MD Pain, dental; [facility] Emergency Dep t EMERGENCY PHYSICIANS Type 2 diabetes mellitus wit h complication (H); [address] Medical non-compliance [place], [place] [address] [facility] [place] [address] [place] [address] [phone] (Wo rk) Social History Tobacco Use Types [...] Sign Reading Time Taken Comments Blood Pressure 132/89 09/03/2015 6:06 AM CDT Pulse 68 09/03/2015 6:06 AM CDT Temperature 36.1 ??C (97 ??F) 09/03/2015 6:06 AM CDT Respiratory Rate 18 09/03/2015 6:06 AM CDT Oxygen Saturation 97% 09/03/2015 6:06 AM CDT Inhaled Oxygen Concentration - - Weight 101.6 kg (224 lb) 09/03/2015 6:06 AM CDT Height 177.8 cm (5' 10) 09/03/2015 6:06 AM CDT Body Mass Index 32.14 09/03/2015 6:06 AM CDT documented in this encounter Discharge Instructions Discharge InstructionsRk Ordaz MD - 09/03/2015 6:26 AM CDT Images from the original note were not included. Discharge Instructions Hyperglycemia, High Blood Sugar Today we found your blood sugar (glucose) was high. This may mean that you have developed diabetes, or if you already know that you have diabetes, it may mean that your diabetes is not as well controlled as it should be. Signs of elevated blood sugar include increased thirst, frequent urination, blurred vision, fatigue, unexplained weight loss, poor wound healing, and frequent infections. We sometimes give medicine in the Emergency Department to lower the blood sugar. We may also prescribe medicine for you to use at home, or increase the medicine that you already take. While we don???t like to see your blood sugar high, it is much more dangerous to let your blood sugar get too low, so it is reasonable to take time to bring it down, or to wait and watch to see if it comes down on its own. It is very important that you go to see your regular doctor to have additional tests to see what thehigh blood sugar test means in your case. See your doctor as directed today, or within 1 week. Return to the Emergency Department if you develop: ??? Nausea and vomiting. ??? Confusion, disorientation, or being unable to wake up. ??? Fever greater than 101.5. ??? Blood sugar greater than 400. ??? Abdominal pain. What can I do to help myself? Check your blood sugar as instructed by your doctor. ??? Take medications prescribed by your doctor. ??? Follow a diabetic diet (low fat, low concentrated sweets, high fiber). ??? Exercise regularly. ??? Moderate or eliminate alcohol use. ??? Stop smoking. Diabetes mellitus is a disease in which the body cannot regulate the amount of sugar (glucose) in the blood. Insulin allows glucose to move out of the blood into cells throughout the body where it is used for fuel. People with diabetes do not produce enough insulin (type 1 diabetes), or cannot use insulin properly (type 2 diabetes), or both. This starves the cells that need the glucose for fuel, and also harms certain organs and tissues exposed to the high glucose levels. Over a long period of time,uncontrolled diabetes can lead to heart and blood vessel disease, blindness, kidney failure, foot ulcers and many other problems. About 17 million Americans (6.2% of adults) have diabetes. We think that about one third of adults with diabetes do not know they have diabetes. The incidence of diabetes is increasing rapidly. This increase is due to many factors, but the most significant are our increasing weight and decreased activity levels. Diabetes can be a very serious and life-threatening illness if not treated. If you were given a prescription for medicine here today, be sure to read all of the information (including the package insert) that comes with your prescription. This will include important information about the medicine, its side effects, and any warnings that you need to know about. The pharmacist who fills the prescription can provide more information and answer questions you may have about the medicine. If you have questions or concerns that the pharmacist cannot address, please call or return to the Emergency Department. Opioid Medication Information Pain medications are among the most commonly prescribed medicines, so we are including this information for all our patients. If you did not receive pain medication or get a prescription for pain medicine, you can ignore it. You may have been given a prescription for an opioid (narcotic) pain medicine and/or have received apain medicine while here in the Emergency Department. These medicines can make you drowsy or impaired. You must not drive, operate dangerous equipment, or engage in any other dangerous activities whiletaking these medications. If you drive while taking these medications, you could be arrested for DUI, or driving under the influence. Do not drink any alcohol while you are taking these medications. Opioid pain medications can cause addiction. If you have a history of chemical dependency of any type, you are at a higher risk of becoming addicted to pain medications. Only take these prescribed medications to treat your pain when all other options have been tried. Take it for as short a time and asfew doses as possible. Store your pain pills in a secure place, as they are frequently stolen and provide a dangerous opportunity for children or visitors in your house to start abusing these powerful medications. We will not replace any lost or stolen medicine. As soon as your pain is better, you should flush all your remaining medication. Many prescription pain medications contain Tylenol?? (acetaminophen), including Vicodin??, Tylenol #3??, Fisher??, Lortab??, and Percocet??. You should not take any extra pills of Tylenol?? if you are using these prescription medications or you can get very sick. Do not ever take more than 3000 mg of acetaminophen in any 24 hour period. All opioids tend to cause constipation. Drink plenty of water and eat foods that have a lot of fiber, such as fruits, vegetables, prune juice, apple juice and high fiber cereal. Take a laxative if you don???t move your bowels at least every other day. Miralax??, Milk of Magnesia, Colace??, or Senna?? can be used to keep you regular. Remember that you can always come back to the Emergency Department if you are not able to see your regular doctor in the amount of time listed above, if you get any new symptoms, or if there is anything that worries you. Discharge Instructions Dental Pain You have been seen today for a toothache. Your pain may be caused by an exposed nerve, an infection (pulpitis), a root abscess, or other problems. You will need to see a dentist for a solution to your tooth problem. Emergency Department care is only to help control your problem until you can see a dentist. Today, we did not find any sign that your toothache was caused by a serious condition, but sometimes symptoms develop over time and cannot be found during an emergency visit, so it is very important that you follow up with your dentist. Return to the Emergency Department if: ??? You develop a fever over 101 degrees Fahrenheit. ??? You can???t open your mouth normally, can???t move your tongue well, or can???t swallow. ??? You have new or increased swelling of your face or neck. ??? You develop drainage of pus or foul smelling material from around your tooth. What can I do to help myself? Take any antibiotic the doctor may have prescribed for you today. ??? Avoid very hot or very cold foods as both can cause pain. ??? Make an appointment to see a dentist as soon as possible. If you wish, we can provide you with alist of low-cost dental clinics. If you were given a prescription for medicine here today, be sure to read all of the information (including the package insert) that comes with your prescription. This will include important information about the medicine, its side effects, and any warnings that you need to know about. The pharmacist who fills the prescription can provide more information and answer questions you may have about the medicine. If you have questions or concerns that the pharmacist cannot address, please call or return to the Emergency Department. Opioid Medication Information Pain medications are among the most commonly prescribed medicines, so we are including this information for all our patients. If you did not receive pain medication or get a prescription for pain medicine, you can ignore it. You may have been given a prescription for an opioid (narcotic) pain medicine and/or have received apain medicine while here in the Emergency Department. These medicines can make you drowsy or impaired. You must not drive, operate dangerous equipment, or engage in any other dangerous activities whiletaking these medications. If you drive while taking these medications, you could be arrested for DUI, or driving under the influence. Do not drink any alcohol while you are taking these medications. Opioid pain medications can cause addiction. If you have a history of chemical dependency of any type, you are at a higher risk of becoming addicted to pain medications. Only take these prescribed medications to treat your pain when all other options have been tried. Take it for as short a time and asfew doses as possible. Store your pain pills in a secure place, as they are frequently stolen and provide a dangerous opportunity for children or visitors in your house to start abusing these powerful medications. We will not replace any lost or stolen medicine. As soon as your pain is better, you should flush all your remaining medication. Many prescription pain medications contain Tylenol?? (acetaminophen), including Vicodin??, Tylenol #3??, Fisher??, Lortab??, and Percocet??. You should not take any extra pills of Tylenol?? if you are using these prescription medications or you can get very sick. Do not ever take more than 3000 mg of acetaminophen in any 24 hour period. All opioids tend to cause constipation. Drink plenty of water and eat foods that have a lot of fiber, such as fruits, vegetables, prune juice, apple juice and high fiber cereal. Take a laxative if you don???t move your bowels at least every other day. Miralax??, Milk of Magnesia, Colace??, or Senna?? can be used to keep you regular. Remember that you can always come back to the Emergency Department if you are not able to see your regular doctor in the amount of time listed above, if you get any new symptoms, or if there is anything that worries you. Discharge Instructions Dental Pain You have been seen today for a toothache. Your pain may be caused by an exposed nerve, an infection (pulpitis), a root abscess, or other problems. You will need to see a dentist for a solution to your tooth problem. Emergency Department care is only to help control your problem until you can see a dentist. Today, we did not find any sign that your toothache was caused by a serious condition, but sometimes symptoms develop over time and cannot be found during an emergency visit, so it is very important that you follow up with your dentist. Return to the Emergency Department if: ??? You develop a fever over 101 degrees Fahrenheit ??? You can???t open your mouth normally, can???t move your tongue well, or can???t swallow ??? You have new or increased swelling of your face or neck. ??? You develop drainage of pus or foul smelling material from around your tooth. What can I do to help myself? Take any antibiotic the doctor may have prescribed for you today. ??? Avoid very hot or very cold foods as both can cause pain. ??? Make an appointment to see a dentist as soon as possible. If you wish, we can provide you with alist of low-cost dental clinics. Remember that you can always come back to the Emergency Department if you are not able to see your regular doctor in the amount of time listed above, if you get any new symptoms, or if there is anything that worries you. Dental Resources Name/Address/Phone Eligibility Hours Fee [facility] [address], [address] [place] [address] Anyone Call for appointment [facility] Medical Assistance Private Insurance [facility] [address] [place] [address] Anyone Call for appointment [facility] refers to low-cost dental clinics for non-preventive care Ukrainian Interpreters available Prices start at Adults Cleaning $36-$160 X-Ray $20-40 Children Cleaning $15 X-ray $10-20 Fluoride $10 Accepts gann, check or credit; Does not take insurance or [place]. [facility] [address] [place] [address] Anyone Afternoons and evenings January-September Answers phones after 10 AM $30.00 per visit ($15.00 per visit if 62 or older) Preventive care. Holiness care; sliding fee; [facility] [address] [place] [address] Children to age 18 and women [facility] Residents without insurance will be asked to apply for Assured Care. M TH F 8:30 am - 5 pm T W 8:30 am - 7 pm 30 locations metro wide Call for appointment and to confirm hours. Sliding Fee [facility] Medical Assistance Assured Access Private Insurance 8 Languages Spoken [facility] [address] [address] Anyone Call for appointment Sliding Fee Accept insurance, [place], [place] and self-pay. Call if no insurance. All services provided. Staff fluent in Hmong, Laotian, Sumit, Mongolian, Pakistani, Ukrainian, and Farsi. [facility] [address] [place] [address] Children Adults in a walk in basis Mon - Fri. 8 - 5 pm (closed 1-2 pm) General Dentists & Hygienists Private Dentists Dentures Fees based on family size and income ranging from 40% - 100% payment by patient. [facility] [address] [place], [place] [phone] Anyone Mon - Wed 7:30 am - 5:00 pm By Appt. Tues & Wed @ 3:00 call for urgent care Appt for next day service Sliding fee: [place]; Insurance [facility] [address] [place], [place] [phone] Anyone Call for an appointment. Days open vary every semester. Adult cleaning $25 Child cleaning $15 X-Rays $10-$15 Whitening services available $75, includes cleaning Seniors 50% off [facility] [address] [place] [address] Anyone M-F 8 am - 5 pm Most insurances accepted. [place] and Sliding Scale. [facility] [address] [place] [phone] Anyone without insurance Call to make appt M-F 9:00 am - 5 pm (Closed noon hour 12-1) 6 pm- 8 pm Evening hours also available for care Sliding fee based on income and size of household. [facility] [address] [place] [phone] press option 1 For the [facility] press option 4 Anyone Anyone Wednesday 4 - 6:30 pm Wednesday 12:30 - 3 & 4-6:30 8:30 - 11 am & 12-2:30 pm January through September only All year around on from 5-9 pm (only time a dentist is in.) Cleanings & X-Rays Only Cleanings: Adults $30 Kids $20 X-Rays: Adults $34 Kids $10 MA and Sliding fee [facility] [address] [place] [address] Anyone ([facility] interpreters available) M-F 8:00 am - 5:00 pm By appointment only (same day appointments available) Sliding fee ($40+ may be due at appointment, remainder billed); [place]; Insurance [facility] [address] [place], [place] [phone] Anyone (Hmong interpreters available) M-Th 8:00 am - 8:00 pm F 8:00 am - 5:00 pm By appointment only (same day appointments available) Sliding fee ($40+ may be due at appointment, remainder billed); MA; Insurance [facility] [address] [place], [place] [phone] Anyone Must live within [facility] to qualify for sliding fee services Mon, Tues, Thurs, Fri 8:30 am - 5:00 pm Wed. 8:30 am - 7:00 pm All other services by appt. only Sliding Fee; [place] Offer payment plans Have financial workers that will assist with [place] and will use sliding fee for those who do notqualify. [facility] [address] [place] [address] [phone] Anyone without insurance Hours and day of week vary (Call ahead for hours) Walk-in only Free Services Cleanings; Fillings; Extractions [address] [id number] Anyone Call for an appointment Accept patients with [place] and Medical Assistance. 10% discount if bill is paid in full on day of service. No sliding fee scale. [facility] [address] [place] [phone] Anyone M-F 8 am-5 pm Call for appt. Walk-in hours 8 am - 11am and 1 pm - 5 pm, however take scheduled appointments first No emergency services or oral surgeries Sliding Fee available with an [place] or [place] denial letter andproof of income. Accepts Assured Access card and [place] coverage. Name/Address/Phone Eligibility Hours Fee [facility] [address] [place], [place] [phone] Anyone with emergencies only M & W clinic begins at 6 pm Call ahead Alternate Fridays for children by Appt only Free [facility] [address] [place], [place] [phone] Emergencies (adults only): Anyone Free walk-in screens for oral surgery Call ahead for hours All other services by appt. only Accepts MA for pediatrics only Rates are about 25% - 40% less than private dental office. No sliding fee scale [facility] [address] [place] [phone] Anyone as long as they do not have health insurance Hours on Mondays, Tuesdays, and Sliding fees based on monthly income No root canals, tooth pulls or emergencies [facility] [address] [place] [phone] Anyone M - F 8:00 am - 5:00 pm Wed 8:00 am - 8 pm Sliding fees; MA; Insurance [facility] [address] [address] Anyone age 55+ M - F 8:00 am - 4:30 pm Appt. only Set slightly lower fees; [place]; Insurance Give Kids a smile day in [facility] Children Takes place in June at a few locations Dental Pain: Dear Emergency Department Patient: Here at [facility], we are always pleased to evaluate you for emergency conditions and offer a screening examination. Today, we have seen you and determined that you have dental pain and/or a dental problem. We do not have the equipment and/or advanced training to perform definitive dental care, therefore, you need to be seen by a dentist for further care. You may see your regular dentist if you have one, or we have attached a list of community dental providers, including some who provide care at a reduced fee. Please be aware that if a narcotic medication was prescribed, it will not be refilled in the emergency department. Accordingly, if you should have ongoing problems and/or pain, you should contact a dentist right away for definitive treatment. Sincerely, [facility]) documented in this encounter Medications at Time of Discharge Medication Sig Dispensed Refills Start Date End Date penicillin V potassium Take 1 tablet (500 40 tablet 0 09/0209/13/2015 (VEETID) 500 MG tablet mg) by mouth 4 times daily for 10 days blood glucose monitoring Use to test blood 1 Box 6 06/201502/28/2016 (ACCU-CHEK FASTCLIX) sugar 2 times daily lancetsIndications: Type or as directed. 2 diabetes, HbA1c goal < 7% (H) blood glucose monitoring Use to test blood 100 each 6 06/201502/28/2016 (ACCU-CHEK SMARTVIEW) sugar 2 times daily test stripIndications: or as directed. Type 2 diabetes, HbA1c goal < 7% (H) HYDROcodone-acetaminophe Take 1-2 tablets by 15 tablet 0 12/24/2015 n (NORCO) 5-325 MG per mouth every 6 hours tablet as needed for moderate to severe pain documented as of this encounter ED Notes Marge Thompson RN - 09/03/2015 6:08 AM CDT Pt with dental pain on right lower side. Pt recently discontinued his diabetes medications without MD involvement. Rk Ordaz MD - 09/03/2015 6:04 AM CDT History Chief Complaint: Dental Pain HPI Ana Mcgowan is a 30 year old male with a history of type 2 diabetes who presents with dental pain.The patient reports that he has had right lower dental pain over the past several weeks. The patienthas been using Ibuprofen and Orogel with minimal relief of his pain. The patient has follow up with dentistry in 2 days, but due to the severity of his pain he presents to the ED for evaluation. The patient has not had any fevers. Of note, the patient also reports that he has not been taking his Metformin over the last month as he hasn't been checking his blood sugars, though his blood sugar is 161 on arrival. The patient has never had to be hospitalized for DKA. Allergies: NKDA Medications: Blood glucose monitoring Past Medical History: Type 2 diabetes Past Surgical History: History reviewed. No significant past surgical history. Family History: History reviewed. No significant family history. Social History: Relationship status: Single The patient admits smoking, 0.5 ppd for 5 years. The patient denies alcohol use. Review of Systems HENT: Positive for dental problem. All other systems reviewed and are negative. Physical Exam Filed Vitals: 09/03/15 0606 BP: 132/89 Pulse: 68 Temp: 97 ??F (36.1 ??C) TempSrc: Temporal Resp: 18 Height: 1.778 m (5' 10) Weight: 101.606 kg (224 lb) SpO2: 97% Physical Exam General: Alert, resting comfortly HEENT: The scalp and head appear normal The pupils are equal, round, and reactive to light Extraocular muscles are intact. The nose is normal. The oropharynx is normal. Poor dentition, no trismus, percussive tenderness to the first molar on the right mandibular surface, no gingival swelling or fluctuance. No incisable abscess. Uvula is in the midline. There is no peritonsillar abscess. Neck: Normal range of motion. Lungs: Clear. No rales, no wheezing. There is no tachypnea. Non-labored. Cardiac: Regular rate. Normal S1 and S2. No S3 or S4. No pathological murmur. No pericardial rub. Abdomen: Soft. No distension. No tympani. No rebound. Non-tender. Lymph: No anterior or posterior cervical lymphadenopathy noted. No submandibular nor cervical adenopathy. MS: Normal tone. Normal movement of all extremities. Neuro: Normal mentation. No focal motor or sensory changes. Speech normal. Psych: Awake. Alert. Normal affect. Appropriate interactions. Skin: No rash. No lesions. Emergency Department Course Procedures: Dental Block INDICATIONS: Dental pain ANESTHESIA: Left inferior alveolar nerve block using Bupivacaine without Epinephrine. PATIENT STATUS: The patient tolerated the procedure well and there were no immediate complications. ED Course: Vitals were measured and recorded. Nursing notes and past medical history reviewed. I performed a physical examination of the patient as documented above. I explained the plan with the patient who consents to this. The patient had the above procedure performed. I personally answered all related questions prior to discharge. Findings and plan explained to the Patient. Patient discharged home with instructions regarding supportive care, medications, and reasons to return. The importance of close follow-up was reviewed. Impression & Plan Medical Decision Making: Ana Mcgowan is a 30 year old male presents for a toothache. The first molar on the right mandibular surface was acutely tender to percussion. There is no evidence of surrounding abscess. There is no evidence of deep space infection of the neck or any sepsis-like syndrome. The patient was offered a dental block for pain control which was performed. Given the concern for apical abscess and dental infection, the patient was given a prescription for Penicillin. Pt was given a prescription for Fisher for pain control. The patient was strongly advised to keep his dental appointment for as scheduled. I discussed with the patient that these medications did not represent definitive care for the tooth infection and definitive care by a dentist is needed. The patient is aware that I am not a dentist and that we do not have dentistry operations consultant. The patient is aware that we cannot refill pain medications in the Emergency department and was also given a dental resource sheet. The patient will return to the emergency department for fever, uncontrolled pain, inability to tolerate PO, or onset of facial swelling. The patient expressed understanding. WE also discussed the importance of being compliant and taking his Metformin daily; he has missed one month, not because he ranout, but because he hasn't bothered to check blood sugars and therefore decided he shouldn't take his Metformin. He will work on quitting smoking as he is aware that this is also a risk factor for CAD.WE discussed exercise and losing weight which can help him resolve his diabetes. He has an appointment with his dentist for at 1300. He should return if he develops fever or other new symptomsin the interim. Diagnosis: ICD-10-CM 1. Pain, dental K08.8 2. Type 2 diabetes mellitus with complication (HCC) E11.8 3. Medical non-compliance Z91.19 Disposition: Discharge to home with dentistry follow up. Discharge Medications: HYDROCODONE-ACETAMINOPHEN (NORCO) 5-325 MG PER TABLET Take 1-2 tablets by mouth every 6 hours as needed for moderate to severe pain PENICILLIN V POTASSIUM (VEETID) 500 MG TABLET Take 1 tablet (500 mg) by mouth 4 times daily for 10 days Jayesh Black, am serving as a scribe on 09/03/2015 at 6:04 AM to personally document services performed by Rk Ordaz MD, based on my observations and the provider's statements to me. Rk Ordaz MD 09/03/15 0650 documented in this encounter Plan of Treatment Upcoming Encounters Date Type Specialty Care Team Description 06/16/2022 Virtual Visit Endocrinology Gilberto Weathers MD [address] [place] [address] Ky Marcos MD [address] [facility] [address] documented as of this encounter Procedures Procedure Name Priority Date/Time Associated Diagnosis Comme nts GLUCOSE BY METER Routine 09/03/2015 6:14 AM Resul ts for this CDT procedure are i n the results section. documented in this encounter Results (ABNORMAL) Glucose by meter (09/03/2015 6:14 AM CDT) P athologist Signature Glucose 161 (H) 70 - 99 POINT OF CARE mg/dL TEST, GLUCOSE Specimen Anatomical Collection Method Collection Time Receive d Time (Source) Location / / Volume Laterality 09/03/2015 6:14 AM 6 6:15 CDT AM CDT Rk Ordaz MD [facility] POCT Performing Organization Address City/State/ZIP Code Phon e Number [facility] POINT OF CARE TEST, GLUCOSE POINT OF CARE TEST, GLUCOSE documented in this encounter Visit Diagnoses Diagnosis Pain, dental Unspecified disorder of the teeth and merida pporting structures Type 2 diabetes mellitus with complicati on (H) Medical non-compliance Personal history of noncompliance with m edical treatment, presenting hazards to health documented in this encounter Active and Recently Administered Medications Care Teams Mail Superintendent Relationship Specialty Start Date End Date Otilia Recinos MD PCP - General Family Practice 04/02/15 01/12/16 documented as of this encounter
--- OUTSIDE RECORDS SUMMARY | 2022-03-05 03:58 | XMS_ITS | Encounter Summary ---
:1985 Author Organization [place] Address [facility] [place] [address] Care Team Providers Name Role Phone Otilia Recinos MD Primary Care Provider Reason for Visit Reason Comments Diabetes Education Encounter Details Date Type Department Care Team Description 06/25/2015 [facility] Referring-Physician, Un k-By-Pat Diabetes Education Health/Nurse Visit Diabetes Education Madison Castellano, RD [address] [place] [address] Social History Tobacco Use Types Packs/Day Years [...] documented as of this encounter Progress Notes Bazille, Madison M, RD - 06/25/2015 4:54 PM CST Diabetes Self Management Training: Initial Assessment Visit for Newly Diagnosed Patients (Complete AADE Goals Flowsheet) Ana Mcgowan presents today for education related to Type 2 diabetes. He is accompanied by self ASSESSMENT: Patient Problem List and Family Medical History reviewed for relevant medical history, current medical status, and diabetes risk factors. Current Diabetes Management per Patient: Taking diabetes medications? no Past Diabetes Education: Newly diagnosed Patient glucose self monitoring as follows: BG meter taught today. BG meter: Accu-chek Viki meter BG results: not available BG values are: unable to assess Patient's most recent A1C 6.6 02/01/2015 is meeting goal of <7.0 Nutrition: Patient was drinking about four cans of soda daily but has cut that back to about one. Uses a couplelarge scoops of sugar in his coffee in the morning. Diet include mostly pasta and rice. Meat. Some vegetables. And he may have 1-3 meals per day but rarely 3 so portions are large. Physical Activity: Not assessed Vitals: There were no vitals taken for this visit. Estimated body mass index is 34.60 kg/(m^2) as calculated from the following: Height as of 01/31/15: 1.803 m (5' 11). Weight as of 06/11/15: 112.492 kg (248 lb). Last 3 BP: BP Readings from Last 3 Encounters: 06/11/15 127/74 04/21/15 118/65 02/04/15 112/72 History Smoking status ??? Current Some Day Smoker -- 0.50 packs/day for 5 years Smokeless tobacco ??? Never Used Labs: A1C 6.6 02/01/2015 GLC 148 06/11/2015 LDL 96 10/15/2014 HDL CHOLESTEROL Date Value Ref Range Status 10/15/2014 34* >40 mg/dL Final ] GFR ESTIMATE Date Value Ref Range Status 06/11/2015 >90 Non GFR Calc >60 mL/min/1.7m2 Final GFR ESTIMATE IF BLACK Date Value Ref Range Status 06/11/2015 >90 GFR Calc >60 mL/min/1.7m2 Final CR 0.78 06/11/2015 No results found for this basename: microalbumin Socio/Economic Considerations: Support system: not assessed Health Beliefs and Attitudes: Patient Activation Measure Survey Score: No flowsheet data found. Stage of Change: PREPARATION (Decided to change - considering how) Diabetes knowledge and skills assessment: Patient needs further education on the following diabetes management concepts: new diagnosis needs full education Barriers to Learning Assessment: No Barriers identified Based on learning assessment above, most appropriate setting for further diabetes education would be: Individual setting. INTERVENTION: Education provided today on: AADE Self-Care Behaviors: Healthy Eating: consistency in amount, composition, and timing of food intake, portion control, label reading and carbs Monitoring: purpose, proper technique, log and interpret results, individual blood glucose targets, frequency of monitoring, use of glucose control solution and proper sharps disposal Patient was instructed on Accu-chek Viki meter and was able to provide an accurate return demonstration. Patient's blood glucose reading today was 124 mg/dL fasting. pathophysiology Opportunities for ongoing education and support in diabetes-self management were discussed. Pt verbalized understanding of concepts discussed and recommendations provided today. Education Materials Provided: Stephan Taking Charge of Your Diabetes Book PLAN: See Patient Instructions for co-developed, patient-stated behavior change goals. Meal Plan Recommendation: eat 3 meals a day and eliminate regular soda and work on cutting back sugar in the coffee. Keep rice and pasta portions to no more than 1 1/2 cups at any meal. Exercise / activity plan: aim for 30 minutes most days Check blood sugars 1-2 times daily AVS printed and provided to patient today. FOLLOW-UP: Chart routed to referring provider. Three weeks with CHUN and RN CDEs Time Spent: 60 minutes Encounter Type: Individual Any diabetes medication dose changes were made via the CDE Protocol and Collaborative Practice Agreement with the patient's referring provider. A copy of this encounter was shared with the provider. REPAIR TECHNICIAN documented in this encounter Plan of Treatment Upcoming Encounters Date Type Specialty Care Team Description 06/16/2022 Virtual Visit Endocrinology Gilberto Weathers MD [address] [place] [address] Ky Marcos MD [address] [place] [address] documented as of this encounter Visit Diagnoses Diagnosis Type 2 diabetes, HbA1c goal < 7% (H) - P rimary Type II or unspecified type diabetes benny litus without mention of complication, not stated as uncontrolled documented in this encounter Care Teams Leak Gang Supervisor Relationship Specialty Start Date End Date Otilia Recinos MD PCP - General Family Practice 04/02/15 01/12/16 documented as of this encounter
--- OUTSIDE RECORDS SUMMARY | 2022-03-05 03:58 | XMS_ITS | Encounter Summary ---
:1985 Author Organization [place] Address [facility] [place] [address] Care Team Providers Name Role Phone Gilberto Weathers MD Primary Care Provider Reason for Referral Patient Education - Closed Specialty Diagnoses / Procedures Referred By Contact Refer red To Contact Diagnoses Uncontrolled type 2 diabetes mellitus without complication, without long-term current use of insulin Conner Vail MD [facility] [address] [place] [address] Referral ID Status Reason Start Date Expiration Date Visits Requ ested Visits Authorized [id number] Closed 12/10/2016 12/10/2017 1 1 Reason for Visit Reason Comments Diabetes Encounter Details Date Type Department Care Team Description 12/10/2016 Office Visit [facility] Conner Vail, Unco ntrolled type 2 Clinic [facility] [place] diabetes mellitus [address] [address] without compl ication, [place] [facility] without long-term [place], [place] current use of insulin [id number] (H) (Primary Dx) [phone] Social History Tobacco Use Types Packs/Day Years [...] Sign Reading Time Taken Comments Blood Pressure 118/68 12/10/2016 10:20 AM CDT Pulse 68 12/10/2016 10:20 AM CDT Temperature 36.8 ??C (98.3 ??F) 12/10/2016 10:20 AM CDT Respiratory Rate - - Oxygen Saturation 98% 12/10/2016 10:20 AM CDT Inhaled Oxygen Concentration - - Weight 102.7 kg (226 lb 8 oz) 12/10/2016 10:20 AM CDT Height 175.3 cm (5' 9) 12/10/2016 10:20 AM CDT Body Mass Index 33.45 12/10/2016 10:20 AM CDT documented in this encounter Patient Instructions Patient InstructionsConner Vail MD - 12/10/2016 10:00 AM CDT See your Doctor in 2-3 weeks. Make appointment with Diabetes Nurse. Take prescribed medication as directed. documented in this encounter Progress Notes Conner Vail MD - 12/10/2016 10:00 AM CDT SUBJECTIVE: Ana Mcgowan is a 31 year old male who presents to clinic today for the following health issues: Diabetes Follow-up ?? Patient is checking blood sugars: not at all ?? Diabetic concerns: None and other - frequent thirst and frequent urination ?? Symptoms of hypoglycemia (low blood sugar): shaky, dizzy, weak, lethargy, blurred vision, confusion ?? Paresthesias (numbness or burning in feet) or sores: Yes ?? Date of last diabetic eye exam: not done ?? Amount of exercise or physical activity: 1 day/week for an average of 15-30 minutes ?? Problems taking medications regularly: No meds at this time. ?? Medication side effects: none Diet: low salt and low fat/cholesterol Last A1C was 6.6. Glucose was 135. Patient Active Problem List Diagnosis ??? Sinus tachycardia ??? Chest pain ??? Diabetes mellitus type 2, controlled (H) ??? Episodic cluster headache, not intractable ??? Non morbid obesity due to excess calories Current Outpatient Prescriptions Medication Sig Dispense Refill ??? varenicline (CHANTIX) 1 MG tablet Take 1 tablet (1 mg) by mouth 2 times daily (Patient not taking: Reported on 12/10/2016) 56 tablet 2 ??? blood glucose monitoring (HOMERO CONTOUR NEXT) test strip Use to test blood sugar once daily or as directed. May substitute with another brand if insurance does not cover. (Patient not taking: Reported on 12/10/2016) 50 each 6 ??? blood glucose monitoring (HOMERO MICROLET) lancets Use to test blood sugar once daily or as directed. Ok to substitute alternative if insurance prefers. (Patient not taking: Reported on 12/10/2016) 1Box prn ? ? varenicline (CHANTIX STARTING MONTH ) 0.5 MG X 11 & 1 MG X 42 tablet Take 0.5 mg tab daily for 3 days, then 0.5 mg tab twice daily for 4 days, then 1 mg twice daily. (Patient not taking: Reported on 12/10/2016) 53 tablet 0 ??? indomethacin (INDOCIN) 50 MG capsule Take 1 capsule (50 mg) by mouth at onset of headache for moderate pain (Patient not taking: Reported on 12/10/2016) 60 capsule 0 ??? fluticasone (FLONASE) 50 MCG/ACT nasal spray [place] 1-2 sprays into both nostrils daily (Patient not taking: Reported on 12/10/2016) 1 Bottle 11 REVIEW OF SYSTEMS No fever No wt loss No SOB No CP Past Medical History: Diagnosis Date ??? Diabetes mellitus type 2, controlled (H) 2014 EXAM BP 118/68 (BP Location: Right arm, Patient Position: Sitting, Cuff Size: Adult Large) Pulse 68 Temp 98.3 ??F (36.8 ??C) (Oral) Ht 5' 9 (1.753 m) Wt 226 lb 8 oz (102.7 kg) SpO2 98% BMI 33.45 kg/m2 Overweight. Alert. Speech clear. Gait normal. Fingerstick Glu = 296. (E11.65) Uncontrolled type 2 diabetes mellitus without complication, without long-term current use of insulin (H) (primary encounter diagnosis) Comment: Symptomatic. See HX. Plan labs, start medication, DM Nurse. Plan: Basic metabolic panel (Ca, Cl, CO2, Creat, Gluc, K, Na, BUN), Lipid Profile (Chol, Trig, HDL, LDL calc), Hemoglobin A1c, metFORMIN (GLUCOPHAGE) 500 MG tablet, ASSISTANT SPA MANAGER REFERRAL See your Doctor in 2-3 weeks. Make appointment with Diabetes Nurse. Take prescribed medication as directed. documented in this encounter Nursing Notes Rosaura Esparza - 12/10/2016 10:00 AM CDT Chief Complaint Patient presents with ??? Diabetes Initial BP 118/68 (BP Location: Right arm, Patient Position: Sitting, Cuff Size: Adult Large) Pulse 68 Temp 98.3 ??F (36.8 ??C) (Oral) Ht 5' 9 (1.753 m) Wt 226 lb 8 oz (102.7 kg) SpO2 98% BMI 33.45 kg/m2 Estimated body mass index is 33.45 kg/(m^2) as calculated from the following: Height as of this encounter: 5' 9 (1.753 m). Weight as of this encounter: 226 lb 8 oz (102.7 kg). Medication Reconciliation: complete JBuffie ROVING CAN TENDER Adilia Johnson LPN - 12/10/2016 10:00 AM CDT BG = 296 B. FEROZ Johnson documented in this encounter Plan of Treatment Upcoming Encounters Date Type Specialty Care Team Description 06/16/2022 Virtual Visit Endocrinology Gilberto Weathers MD [address] [place] [address] Ky Marcos MD [address] [place], [place] [id number] documented as of this encounter Procedures Procedure Name Priority Date/Time Associated Diagnosis Comme nts LIPID PROFILE Routine 12/10/2016 11:06 Uncontrolled type 2 Res ults for this AM CDT diabetes mellitus procedure are in without complication, the re sults without long-term section. current use of insulin (H) HEMOGLOBIN A1C Routine 12/10/2016 11:06 Uncontrolled type 2 Re sults for this AM CDT diabetes mellitus procedure are in without complication, the re sults without long-term section. current use of insulin (H) BASIC METABOLIC Routine 12/10/2016 11:06 Uncontrolled type 2 R esults for this PANEL AM CDT diabetes mellitus procedure are in without complication, the re sults without long-term section. current use of insulin (H) documented in this encounter Results (ABNORMAL) Hemoglobin A1c (12/10/2016 11:06 AM CDT) Patholo gist Method Time Signature Hemoglobin A1C 10.4 (H) 4.3 - 6.0 [facility] Comment: Results confirmed by repeat peg t Specimen Anatomical Collection Method Collection Time Receive d Time (Source) Location / / Volume Laterality Blood specimen 12/10/2016 11:06 7 (specimen) AM CDT 11:07 AM CDT Conner Vail MD LAB - BLOOD ORDERABLES Performing Organization Address City/State/ZIP Code Phon e Number [facility] [address] [place], [place] [address] [address] (ABNORMAL) Lipid Profile (Chol, Trig, HDL, LDL calc) (12/10/2016 11:06 AM CDT) P athologist Signature Cholesterol 233 (H) <200 mg/dL [facility] Comment: Desirable: <200 mg/dl Triglycerides 250 (H) <150 mg/dL [facility] Comment: Borderline high: ??150-199 mg/dl High: ? 200-499 mg/dl Very high: ? >499 mg/dl Fasting specimen HDL Cholesterol 38 (L) >39 mg/dL [facility] LDL Cholesterol Calculated 145 (H) <100 mg/dL [facility] Comment: Above desirable: ??100-129 mg/dl Borderline High: ??130-159 mg/dL High: ? 160-189 mg/dL Very high: ? >189 mg/dl Non HDL Cholesterol 195 (H) <130 mg/dL [facility] Comment: Above Desirable: ??130-159 mg/dl Borderline high: ??160-189 mg/dl High: ? 190-219 mg/dl Very high: ? >219 mg/dl Specimen Anatomical Collection Method Collection Time Receive d Time (Source) Location / / Volume Laterality Blood specimen 12/10/2016 11:06 7 (specimen) AM CDT 11:07 AM CDT Conner Vail MD LAB - BLOOD ORDERABLES Performing Organization Address City/State/ZIP Code Phon e Number [facility] [address] [place] [address] (ABNORMAL) Basic metabolic panel (Ca, Cl, CO2, Creat, Gluc, K, Na, BUN) (12/10/2016 11:06 AM CDT) Analysis Performed At Patho logist Time Signature Sodium 137 133 - 144 [place] mmol/L [facility] Potassium 3.7 3.4 - 5.3 [place] mmol/L [facility] Chloride 103 94 - 109 [place] mmol/L [facility] Carbon Dioxide 26 20 - 32 [place] mmol/L [facility] Anion Gap 8 3 - 14 [place] mmol/L [facility] Glucose 327 (H) 70 - 99 [place] mg/dL [facility] Comment: Fasting specimen Urea Nitrogen 11 7 - 30 mg/dL [facility] Creatinine 0.75 0.66 - 1.25 [facility] mg/dL [facility] GFR Estimate >90 >60 mL/min/1.7m2 [facility] C LINICS Non GFR Calc [facility] GFR Estimate If Black >90 >60 mL/min/1.7m2 F [facility]3] GFR Calc [facility] Calcium 8.5 8.5 - 10.1 mg/dL [facility] Specimen Anatomical Collection Method Collection Time Receive d Time (Source) Location / / Volume Laterality Blood specimen 12/10/2016 11:06 7 (specimen) AM CDT 11:07 AM CDT Conner Vail MD LAB - BLOOD ORDERABLES Performing Organization Address City/State/ZIP Code Phon e Number [facility] [address] [place] [address] documented in this encounter Visit Diagnoses Diagnosis Uncontrolled type 2 diabetes mellitus wi thout complication, without long-term current use of insulin - Primary documented in this encounter Care Teams Multimedia Author Relationship Specialty Start Date End Date Gilberto Weathers MD PCP - General Internal Medicine 01/13/16 [address] [place] [address] documented as of this encounter
--- OUTSIDE RECORDS SUMMARY | 2022-03-05 03:58 | XMS_ITS | Encounter Summary ---
:1985 Author Organization [place] Address [facility] [place] [address] Care Team Providers Name Role Phone No Ref-Primary, Physician Primary Care Provider Unavailable Reason for Referral Consultation - Closed Specialty Diagnoses / Procedures Referred By Contact Refer red To Contact Diabetes Education Diagnoses Diabetes mellitus, type 2 (H) Otilia Recinos MD [address] [address] Referral ID Status Reason Start Date Expiration Date Visits Requ ested Visits Authorized [id number] Closed 02/04/2015 02/04/2016 1 1 Reason for Visit Reason Comments Hospital F/U Encounter Details Date Type Department Care Team Description 02/04/2015 Office Visit [facility] Jorje, Diabetes m ellitus, type 2 (H) (Primary Dx); Clinic [place] B[place] MD Hypokalemia; [address] [place], [place] SERVICES [id number] [place] [address] [place] [address] Social History Tobacco Use Types Packs/Day Years Used Date Smoking Tobacco: Some Days Smokeless Tobacco: Never Alcohol Use Standard Drinks/Week [...] Reading Time Taken Comments Blood Pressure 112/72 02/04/2015 2:56 PM CDT Pulse 84 02/04/2015 2:56 PM CDT Temperature 36.7 ??C (98.1 ??F) 02/04/2015 2:56 PM CDT Respiratory Rate 12 02/04/2015 2:56 PM CDT Oxygen Saturation 98% 02/04/2015 2:56 PM CDT Inhaled Oxygen Concentration - - Weight 108.1 kg (238 lb 6.4 oz) 02/04/2015 2:56 PM CDT Height - - Body Mass Index 33.25 01/31/2015 5:54 PM CDT documented in this encounter Patient Instructions Patient InstructionsSarOtilia henry MD - 02/04/2015 3:30 PM CDT -start metformin twice daily with meals for blood sugar. This medication will not cause your blood sugars to go too low (less than 70). Eat regular, small meals low in sugars and carbohydrates. Stay well hydrated. -call [employer] with insurance questions [phone] [email or web address] -see me in 2 weeks documented in this encounter Progress Notes Otilia Recinos MD - 02/04/2015 2:55 PM CDT HPI Hospital Follow-up Visit: Hospital/Snf/IP Rehab Facility: [facility] Date of Admission: 01/31/15 Date of Discharge: 02/01/15 Reason(s) for Admission: presents to the emergency department today for evaluation of chest pain, shortness of breath, dizziness, and palpitations. The patient endorses the above symptoms that started an hour prior to arrival while the patient was watching TV. He states the chest pain is sharp and left sided rated 6/10. He has not taken aspirin or medications for the pain. The patient was seen in theED 3 months ago with similar symptoms, and he stress test was performed, which was negative. He has not seen a platform inspector. Other than smoking cigarettes, the patient denies illegal drug use, other health problems, nausea, vomiting, diarrhea, or loss of appetite. Problems taking medications regularly: None Medication changes since discharge: None Problems adhering to non-medication therapy: None Summary of hospitalization: [facility] discharge summary reviewed Diagnostic Tests/Treatments reviewed. Follow up needed: DM 2 care Other Healthcare Providers Involved in Patient???s Care: None Update since discharge: stable. No further chest pain. Endorses blurry vision, polyuria (is trying to drink more water per ER instructions), and some intermittent tingling in his feet. He hasn't been feeling well for a long time, at least several months. He states that he used to drink only soda; since the ER visit, he has stopped soda and is drinking water. He tends to eat out a lot. He does not exercise. No family h/o DM2 that he knows of. He is interested in smoking cessation. Post Discharge Medication Reconciliation: discharge medications reconciled and changed, per note/orders (see AVS). Plan of care communicated with patient Coding guidelines for this visit: Type of Medical Decision Making [id number] Visit within 7 Days of discharge [id number] Visit within 14 days of discharge Moderate Complexity [id number] High Complexity [id number] Review of Systems Constitutional: Positive for malaise/fatigue. Negative for fever, chills and weight loss. Eyes: Positive for blurred vision. Respiratory: Negative for cough and shortness of breath. Cardiovascular: Negative for chest pain, palpitations and leg swelling. Gastrointestinal: Negative for nausea, vomiting and abdominal pain. Genitourinary: Positive for frequency. Negative for dysuria and urgency. Skin: Negative for rash. Neurological: Positive for tingling. Endo/Heme/Allergies: Positive for polydipsia. No Known Allergies Current Outpatient Prescriptions Medication ??? Acetaminophen (TYLENOL PO) ??? IBUPROFEN PO ??? cetirizine (ZYRTEC) 10 MG tablet No current facility-administered medications for this visit. Active Ambulatory Problems Diagnosis Date Noted ??? Sinus tachycardia 10/15/2014 ??? Chest pain 01/31/2015 Resolved Ambulatory Problems Diagnosis Date Noted ??? No Resolved Ambulatory Problems No Additional Past Medical History Physical Exam Constitutional: He is well-developed, well-nourished, and in no distress. No distress. Pleasant, mildly obese HENT: Nose: Nose normal. Mouth/Throat: Oropharynx is clear and moist. No oropharyngeal exudate. Eyes: Conjunctivae and EOM are normal. Pupils are equal, round, and reactive to light. Right eye exhibits no discharge. Left eye exhibits no discharge. No scleral icterus. Neck: Normal range of motion. Neck supple. No thyromegaly present. Cardiovascular: Normal rate, regular rhythm and normal heart sounds. Exam reveals no gallop and no friction rub. No murmur heard. Pulmonary/Chest: Effort normal and breath sounds normal. No respiratory distress. He has no wheezes.He has no rales. Lymphadenopathy: He has no cervical adenopathy. Neurological: He is alert. Skin: Skin is warm and dry. He is not diaphoretic. Vitals reviewed. BP 112/72 mmHg Pulse 84 Temp(Src) 98.1 ??F (36.7 ??C) (Oral) Resp 12 Wt 238 lb 6.4 oz (108.138 kg) SpO2 98% A/P Diabetes: With a random blood sugar in the ER > 200 with symptoms, and A1c of 6.6, he meets diagnostic criteria. Favor type 2 over type 1, given body habitus, insidious onset and lifestyle factors. However, he has no family h/o DM. Though his A1c is at goal, he seems fairly symptomatic. I will check his BMP today to make sure that renal function continues to be stable (he received contrast in the ER 4 days ago) and start him on metformin. Referral to DM ed. I gave him Marizol's card for care coordination if needed (he is awaiting approval from [facility]). F/u 2 weeks, sooner as needed. I am told I cannot add on JIMMY ab and islet cell Ab, will have him back if needed. Continue with good diet changes. I spent some time discussing diabetes and lifestyle factors. For now, he will work on continuing todecrease his carb intake, and he will start working out on the treadmill at the gym. Tobacco dependence; recommend use of NRT combo with wellbutrin; patient is interested, but awaiting insurance approval. Will re-visit this next visit. documented in this encounter Nursing Notes India Marcelino CMA - 02/04/2015 2:58 PM CDT Chief Complaint Patient presents with ??? Hospital F/U Initial BP 112/72 mmHg Pulse 84 Temp(Src) 98.1 ??F (36.7 ??C) (Oral) Resp 12 Wt 238 lb 6.4 oz (108.138 kg) SpO2 98% Estimated body mass index is 33.26 kg/(m^2) as calculated from the following: Height as of 15: 5' 11 (1.803 m). Weight as of this encounter: 238 lb 6.4 oz (108.138 kg). BP completed using cuff size: large India Marcelino CMA/AAFRANCIS documented in this encounter Plan of Treatment Upcoming Encounters Date Type Specialty Care Team Description 06/16/2022 Virtual Visit Endocrinology Gilberto Weathers MD [address] [place] [address] Ky aMrcos MD [address] [place], [place] [id number] documented as of this encounter Procedures Procedure Name Priority Date/Time Associated Diagnosis Comme nts BASIC METABOLIC Routine 02/04/2015 3:46 PM Hypokalemia Result s for this PANEL CDT procedure are i n the results section. documented in this encounter Results (ABNORMAL) Basic metabolic panel (Ca, Cl, CO2, Creat, Gluc, K, Na, BUN) (02/04/2015 3:46 PM CDT) [facility] gist Method Time Signature Sodium 138 133 - 144 [place] mmol/L [facility] Potassium 4.0 3.4 - 5.3 [place] mmol/L [facility] Chloride 108 94 - 109 [place] mmol/L [facility] Carbon Dioxide 23 20 - 32 [place] mmol/L [facility] Anion Gap 7 3 - 14 [place] mmol/L [facility] Glucose 135 (H) 70 - 99 [place] mg/dL [facility] Urea Nitrogen 17 7 - 30 [place] mg/dL [facility] Creatinine 0.70 0.66 - [place] 1.25 CLINICS mg/dL [facility] GFR Estimate >90 >60 [place] Non GFR Calc mL/min/1. CLINICS 7m2 [facility] GFR Estimate >90 >60 [place] If Black GFR Calc mL/min/1. CLIN ICS 7m2 [facility] Calcium 8.8 8.5 - [place] 10.1 CLINICS mg/dL [facility] Specimen Anatomical Collection Method Collection Time Receive d Time (Source) Location / / Volume Laterality Blood specimen 02/04/2015 3:46 PM 015 3:47 (specimen) CDT PM CDT Otilia Recinos MD LAB - BLOOD ORDERABLES Performing Organization Address City/State/ZIP Code Phon e Number [facility] [address] [place] [address] documented in this encounter Visit Diagnoses Diagnosis Diabetes mellitus, type 2 (H) - Primary Type II or unspecified type diabetes benny litus without mention of complication, not stated as uncontrolled Hypokalemia Hypopotassemia Hyperglycemia Other abnormal glucose documented in this encounter Care Teams Design Consultant Relationship Specialty Start Date End Date No Ref-Primary, Physician PCP - General 09/24/14 1 06/01/14 documented as of this encounter
--- OUTSIDE RECORDS SUMMARY | 2022-03-05 03:58 | XMS_ITS | Encounter Summary ---
:1985 Author Organization [place] Address [facility] [place] [address] Care Team Providers Name Role Phone Otilia Recinos MD Primary Care Provider Reason for Visit Reason Onset Date Comments No Show No Show 04/08/2015 Encounter Details Date Type Department Care Team Description 04/08/2015 Office Visit [facility] Jorje, NO SHOW (P rimary Dx) Clinic [place] MD Otilia [address] [facility] [phone] [place] [address] [place] [address] Social History Tobacco Use Types [...] this encounter Progress Notes Pridgeon, India K, CLIENT EXPERIENCE MANAGER - 04/08/2015 10:14 AM CST HPI ROS Physical Exam SUBJECTIVE: Ana Mcgowan is a 29 year old male who presents to clinic today for the following health issues: This patient was a no show for this scheduled appointment. THCARE MANAGEMENT CONSULTANT documented in this encounter Plan of Treatment Upcoming Encounters Date Type Specialty Care Team Description 06/16/2022 Virtual Visit Endocrinology Gilberto Weathers MD [address] [facility] [place] [address] Ky Marcos MD [address] [place] [address] documented as of this encounter Visit Diagnoses Diagnosis NO SHOW - Primary documented in this encounter Care Teams Sensitizer Relationship Specialty Start Date End Date Otilia Recinos MD PCP - General Family Practice 04/02/15 01/12/16 documented as of this encounter
--- OUTSIDE RECORDS SUMMARY | 2022-03-05 03:58 | XMS_ITS | Encounter Summary ---
:1985 Author Organization [place] Address [facility] [place] [address] Care Team Providers Name Role Phone Gilberto Weathers MD Primary Care Provider Reason for Visit Reason Onset Date Comments Results 12/14/2016 Encounter Details Date Type Department Care Team Description 12/14/2016 Telephone [facility] Gilberto Weathers MD Results [place] [address] [facility] [address] [place] [address] [place] [address] [phone] Social History Tobacco Use Types Packs/Day Years [...] this encounter Miscellaneous Notes Telephone Encounter - Briseyda Ricci RN - 12/14/2016 3:36 PM CDT Call to pt. Updated. Multiple questions answered. Telephone Encounter - Gilberto Weathers MD - 12/14/2016 3:25 PM CDT Called in. Follow up with me in 3 months. Telephone Encounter - Dagmar Mascorro CMA - 12/14/2016 2:24 PM CDT Spoke to pt and let him know results and he's ok with starting statin. PCP please prescribe statin and do new rx for Metformin 1000 mg bid. Pt will go to pharmacy tomorrow to pick those up. Telephone Encounter - Gilberto Weathers MD - 12/14/2016 1:57 PM CDT Worsened diabetic control. Elevated cholesterol. Suggest to double Metformin to 1000 mg bid and to start statin for cholesterol. Needs then follow up in 3 months. Telephone Encounter - Briseyda Ricci RN - 12/14/2016 11:28 AM CDT Call from pt requesting results of recent lab tests ordered by Dr. Vail. Please review and advise. documented in this encounter Plan of Treatment Upcoming Encounters Date Type Specialty Care Team Description 06/16/2022 Virtual Visit Endocrinology Gilberto Weathers MD [address] [place] [address] Ky Marcos MD [address] [place] [address] documented as of this encounter Visit Diagnoses Diagnosis Hyperlipidemia LDL goal <100 - Primary Other and unspecified hyperlipidemia Uncontrolled type 2 diabetes mellitus wi thout complication, without long-term current use of insulin documented in this encounter Care Teams Presentation Designer Relationship Specialty Start Date End Date Gilberto Weathers MD PCP - General Internal Medicine 01/13/16 [address] [place] [address] documented as of this encounter
--- OUTSIDE RECORDS SUMMARY | 2022-03-05 03:58 | XMS_ITS | Encounter Summary ---
:1985 Author Organization [place] Address [address] [facility] [place] [address] Care Team Providers Name Role Phone Gilberto Weathers MD Primary Care Provider Reason for Visit Reason Onset Date Comments Patient Request 12/11/2016 results Encounter Details Date Type Department Care Team Description 12/11/2016 Telephone [facility] Gilberto Weathers, Lizzy ient Request Clinic [facility] [place] (results) [address] [place] [address] [place], [place] [phone] (Wo rk) [address] [phone] Social History Tobacco Use Types Packs/Day Years [...] this encounter Miscellaneous Notes Telephone Encounter - Louisa Giron - 12/16/2016 8:12 AM CDT See 12/14 telephone encounter. Telephone Encounter - Jacqueline Leonardo RN - 12/11/2016 1:12 PM CDT No results note at this time. Provider please review and advise. Telephone Encounter - Sadie Pierre - 12/11/2016 12:18 PM CDT Reason for Call: Request for results: Name of test or procedure: labs Date of test of procedure: 12/10 Location of the test or procedure: [place] OK to leave the result message on voice mail or with a family member? YES Phone number Patient can be reached at: Work number on file: There is no work phone number on file. or Cell number on file: Telephone Information: Additional comments: none Call taken on 12/11/2016 at 12:18 PM by Sadie Pierre documented in this encounter Plan of Treatment Upcoming Encounters Date Type Specialty Care Team Description 06/16/2022 Virtual Visit Endocrinology Gilberto Weathers MD [address] [place] [address] Ky Marcos MD [address] [place] [address] documented as of this encounter Visit Diagnoses Not on filedocumented in this encounter Care Teams Supplier Quality Engineer Relationship Specialty Start Date End Date Gilberto Weathers MD PCP - General Internal Medicine 01/13/16 [address] [place] [address] documented as of this encounter
--- OUTSIDE RECORDS SUMMARY | 2022-03-05 03:58 | XMS_ITS | Encounter Summary ---
:1985 Author Organization [facility] Address [address] [place] [address] Care Team Providers Name Role Phone Otilia Recinos MD Primary Care Provider Reason for Visit Reason Comments Headache Encounter Details Date Type Department Care Team Description 12/24/2015 Emergency [facility] Vanessa Suggs Nonintra ctable headache, unspecified chronicity pattern, unspecified headache type; [facility] Emergency Dep mj Dempsey MD [address] [id number] [phone] (Wo rk) Social History Tobacco Use Types [...] Sign Reading Time Taken Comments Blood Pressure 128/76 12/24/2015 1:56 AM CDT Pulse 96 12/24/2015 1:03 AM CDT Temperature 36.8 ??C (98.2 ??F) 12/24/2015 1:03 AM CDT Respiratory Rate 18 12/24/2015 1:03 AM CDT Oxygen Saturation 99% 12/24/2015 2:26 AM CDT Inhaled Oxygen Concentration - - Weight 104.3 kg (230 lb) 12/24/2015 1:03 AM CDT Height 180.3 cm (5' 11) 12/24/2015 1:03 AM CDT Body Mass Index 32.08 12/24/2015 1:03 AM CDT documented in this encounter Discharge Instructions Discharge InstructionsVanessa Suggs MD - 12/24/2015 3:40 AM CDT Images from the original note were not included. You have diabetes. Please followup with PCP regarding your diabetes. Reasons to return: chest pain, shortness of breath, nausea/vomiting, bleeding, confusion, blood in stools, dizziness, passing out, increasing headache, weakness, inability to walk. Also return if cough, difficulty breathing, nausea/vomiting, confusion, or any other problems. Please followup with your doctor in 1-3 days. Come back if not better. * HEADACHE [unspecified] The cause of your headache today is not clear, but it does not appear to be the sign of any serious illness. Under stress, some people tense the muscles of their shoulder, neck and scalp without knowing it. Ifthis condition lasts long enough, a TENSION HEADACHE can occur. A MIGRAINE HEADACHE is caused by changes in blood flow to the brain. It can be mild or severe. A migraine attack may be triggered by emotional stress, hormone changes during the menstrual cycle, oral contraceptives, alcohol use, certain foods containing tyramine, eye strain, weather changes, missing meals, lack of sleep or oversleeping. Other causes of headache include a viral illness, sinus, ear or throat infection, dental pain and TMJ (jaw joint) pain. HOME CARE: ?? If you were given pain medicine for this headache, do not drive yourself home. Arrange for a ride, instead. When you get home, try to sleep. You should feel much better when you wake up. ?? If you are having nausea or vomiting, follow a light diet until your headache is relieved. ?? If you have a migraine type headache, use sunglasses when in the daylight or around bright indoorlighting until symptoms improve. Bright glaring light can worsen this kind of headache. FOLLOW UP with your doctor if the headache is not better within the next 24 hours. If you have frequent headaches you should discuss a treatment plan with your primary care doctor. By being aware of the earliest signs of headache, and starting treatment right away, you may be able to stop the pain yourself. GET PROMPT MEDICAL ATTENTION if any of the following occur: ?? Worsening of your head pain or no improvement within 24 hours ?? Repeated vomiting (unable to keep liquids down) ?? Fever over 101??F (38.3??C) ?? Stiff neck ?? Extreme drowsiness, confusion or fainting ?? Weakness of an arm or leg or one side of the face ?? Difficulty with speech or vision ?? [id number] [place] [address]. All rights reserved. This information is not intended as a substitute for professional medical care. Always follow your healthcare professional's instructions. Using a Blood Sugar Log You have diabetes. This means your body has trouble??regulating a sugar called glucose. To help manage your diabetes, you???ll need to check your blood sugar level as directed by your health care provider. Keeping a log of your blood sugar levels will help you track your blood sugar readings. It???s asimple and easy way to see how well you are controlling your diabetes. Checking your blood sugar level You can check your blood sugar level with a blood glucose meter. You???ll first use a tiny lancet todraw a tiny drop of blood from the side of a finger. Some glucose meters let you use another place on your body to test. But these other places should not be used in some cases. Follow the instructionsfor your glucose meter. And talk with your health care provider before doing the test on other places. The strip goes into the meter first, then a drop of blood is placed on the tip of the strip. The meter then shows a reading that tells you the level of your blood sugar. Your readings should be in yourtarget range as often as possible. This means not too high or too low. Staying in this range helps lower your risk for complications. Your doctor will help you figure out the target range that is best for you. Tracking your readings Every time you check your blood sugar, use your log to keep track of your readings. You may be advised by your doctor to check your blood sugar in the morning, at bedtime, and before and after meals. Be sure to write down all of your numbers. Also use your log to record things that might have affectedyour blood sugar. Some examples include being sick, being physically active, feeling stressed, or skipping meals. Lessons learned from your readings Tracking your blood sugar readings helps you see patterns. These patterns tell you how your actions affect your blood sugar. For instance, you may have higher numbers after eating certain foods or lower numbers after exercise. Keep in mind that there are no ???good?? or ???bad?? numbers. They just help you understand how to stay in your target range more often, so that your diabetes remains in goodcontrol. Sharing your log with your health care team Bring your blood sugar log with you to all of your health care appointments. It can help your doctorand other members of your health care team make changes to your treatment plan, if needed. This may involve making changes in what you eat, what medicines you take, or how much you exercise. To learn more The resources below can help you learn more: ?? [place] [employer]??780.577.4415??www.diabetes.org ?? [employer]??827.882.9669??www.lighthouse.org ?? [employer]??129.572.8399 www.nei.nih.gov ?? [facility]??742.382.4263 ?? 6322-3363 [employer]. [address] [place] [address], [place] [address]. All rights reserved. This information is not intended as a substitute for professional medical care. Always follow your healthcare professional's instructions. documented in this encounter Medications at Time of Discharge Medication Sig Dispensed Refills Start Date End Date blood glucose monitoring Use to test blood 1 Box 6 06/201502/28/2016 (ACCU-CHEK FASTCLIX) sugar 2 times daily lancetsIndications: Type or as directed. 2 diabetes, HbA1c goal < 7% (H) blood glucose monitoring Use to test blood 100 each 06/201502/28/2016 (ACCU-CHEK SMARTVIEW) sugar 2 times daily test stripIndications: or as directed. Type 2 diabetes, HbA1c goal < 7% (H) documented as of this encounter ED Notes Gale Pino RN - 12/24/2015 1:31 AM CDT Note that pt is using phone while talking with friend in room. States pain is 8/10 Vanessa Suggs MD - 12/24/2015 1:16 AM CDT History Chief Complaint: Headache HPI Ana Mcgowan is a 30 year old male with a history of diabetes who presents with a headache. The patient states that she woke this morning with a severe headache, photophobia and nausea. The patient has no history of migraines. The patient states that he has had nasal congestion, sinus pressure and a low fever recently as well. The patient denies any abdominal pain, vomiting or sick contacts. He states that he took tylenol earlier today with no alleviation of his symptoms. The patient does not take any medications for his diabetes. Patient has not taken any OTC medicines. No tick bites. No new skin rashes. Slight nasal congestion. Allergies: No known drug allergies. Medications: The patient is currently on no regular medications. Past Medical History: Diabetes - type II Past Surgical History: History reviewed. No pertinent past surgical history. Family History: History reviewed. No pertinent family history. Social History: Marital Status: Single Smoking status: Current smoker Alcohol use: No Review of Systems Constitutional: Negative for fever. Eyes: Positive for photophobia. Gastrointestinal: Positive for nausea. Negative for vomiting and abdominal pain. Neurological: Positive for headaches. All other systems reviewed and are negative. Pt states he woke up with a bad headache this morning, pt also feeling nauseated, no vomiting. Pt had a fever earlier but did not check his temp. Pt did not take anything for pain or fever today. Pt khoa type 2 diabetic, has not been taking his meds for 2-3 months, has not followed up with a doctor and has not been checking his blood sugars. Physical Exam First Vitals: BP: 127/72 mmHg Pulse: 96 Temp: 98.2 ??F (36.8 ??C) Resp: 18 Height: 180.3 cm (5' 11) Weight: 104.327 kg (230 lb) SpO2: 93 % (normal) Physical Exam GEN: patient smiling, no distress HEAD: atraumatic, normocephalic EYES: pupils reactive (3plus to 2plus), extraocular muscles intact, conjunctivae normal ENT: TMs flat and white bilaterally, oropharynx normal with no erythema or exudate, mucus membranes moist NECK: no cervical LAD, no meningeal signs RESPIRATORY: no tachypnea, breath sounds clear to auscultation (no rales, wheezes, rhonchi) CVS: normal S1/S2, no murmurs/rubs/gallops ABDOMEN: soft, nontender, no masses or organomegaly, no rebound, positive bowel sounds BACK: no lesions EXTREMITIES: intact pulses x 2 (radial pulses intact), no edema MUSCULOSKELETAL: no deformities SKIN: warm and dry, no acute rashes or ulceration, no erythema or fluctuance NEURO: GCS 15, cranial nerves intact. Motor- moves all 4 extremities with 5/5 strength. Sensation- intact . Coordination-ambulatory Overall symmetrical exam HEME: no bruising or petechiae/contusions LYMPH: no lymphadenopathy Emergency Department Course Laboratory: CBC: WBC 7.8, HGB 14.4, PLT 306, otherwise WNL BMP: glucose 135 (H), calcium 8.4 (L), otherwise WNL (Creatinine 0.77) (0111) Glucose: 130 (H) Interventions: Normal Saline, 1 liter, IV bolus Zofran 4 mg IV Toradol 30 mg IV Emergency Department Course: Nursing notes and vitals reviewed. (0118) I performed an exam of the patient as documented above. A peripheral IV was established. Blood was drawn from the patient. This was sent for laboratory testing, findings above. 2:54 AM Recheck Findings and plan explained to the patient. Patient discharged home with instructions regarding supportive care, medications, and reasons to return. The importance of close follow-up was reviewed. Impression & Plan Differential diagnosis: migraine headache, tension headache, carbon monoxide poisoning, intracranialaneurysm, intracerebral mass/tumor, meningitis, temporal arteritis. Medical Decision Making: Patient was evaluated in the ED today for acute cephalgia. This is a 30 year old gentleman who presents with a headache that mostly appears non-toxic. He does have hyperglycemia and type 2 diabetes mellitus but does not take anything for his headache. We considered the following underlying pathology for the patient's headache today: Subarachnoid hemorrhage: Patient did not have an abrupt onset of their headache and was not considered the worst of their life. There is no known history of intra-cranial aneurysm, neck pain, neurologic impairment and no recent syncope or seizure activity. Otherwise the history is not suggestive of SAH and thus not pursued in the ED today with CT and lumbar puncture. Acute angle closure glaucoma: Patient has no significant eye pain or vision loss. The pupils are reactive and equal with no evidence of corneal clouding. Temporal arteritis: No history of polymyalgia rheumatica, jaw claudication and non-tender temporal artery on examination. Carbon monoxide toxicity: There is no relationship to the patient's headache and confinement to a certain environment. There are no other contacts at this time will similar or worsening headache. Intracranial mass: Patient does not have a temporal relationship the headaches with worsening in the morning. The neurologic exam is without impairment and the patient has no history of active malignancy. Meningitis: Patient has no neck pain, fever, meningismus or exposure to contacts with meningitis. It appears the patient's headache is most suggestive of a nontoxic headache. His white cell count isnormal. His glucose is 135 and is chemistry panels were otherwise normal. There was no sign of DKA. He feels better after the IV fluids and will follow up as an outpatient. Headache improved the ED with the interventions as described above and will be sent home with anti-emetics and pain medicine. Patient is encouraged to follow up with their primary physician for further management of the headache including prevention. Patient is counseled to return to the ED immediately for fever, vision changes, numbness, weakness, neck pain, failure to improve, worsening headache or any other concerns. With regard to the headache I do not think there is anything toxic going on and he can follow up with this. Diagnosis: ICD-10-CM 1. Nonintractable headache, unspecified chronicity pattern, unspecified headache type R51 2. Hyperglycemia R73.9 Disposition: Patient is discharged to home. Instructions to patient: You have diabetes. Please followup with PCP regarding your diabetes. Reasons to return: chest pain, shortness of breath, nausea/vomiting, bleeding, confusion, blood in stools, dizziness, passing out, increasing headache, weakness, inability to walk. Also return if cough, difficulty breathing, nausea/vomiting, confusion, or any other problems. Please followup with your doctor in 1-3 days. Come back if not better. I, Jimmy Montilla, am serving as a scribe on 12/24/2015 at 1:18 AM to personally document services performed by Dr. Suggs based on my observations and the provider's statements to me. Jimmy Montilla 12/24/2015 [facility] EMERGENCY DEPARTMENT Vanessa Suggs MD 12/24/15 0341 Ana Perkins RN - 12/24/2015 1:05 AM CDT Pt states he woke up with a bad headache this morning, pt also feeling nauseated, no vomiting. Pt had a fever earlier but did not check his temp. Pt did not take anything for pain or fever today. Pt khoa type 2 diabetic, has not been taking his meds for 2-3 months, has not followed up with a doctor and has not been checking his blood sugars. documented in this encounter Plan of Treatment Upcoming Encounters Date Type Specialty Care Team Description 06/16/2022 Virtual Visit Endocrinology Gilberto Weathers MD [address] [place] [address] Ky Marcos MD [address] [place] [address] documented as of this encounter Procedures Procedure Name Priority Date/Time Associated Comments Diagnosis CBC WITH PLATELETS & STAT 12/24/2015 1:31 AM R esults for this DIFFERENTIAL CDT procedure are i n the results section. BASIC METABOLIC PANEL STAT 12/24/2015 1:31 AM Results for this CDT procedure are i n the results section. GLUCOSE BY METER Routine 12/24/2015 1:11 AM Resul ts for this CDT procedure are i n the results section. documented in this encounter Results (ABNORMAL) Basic metabolic panel (12/24/2015 1:31 AM CDT) [facility] Method Time Signature Sodium 138 133 - 144 [place] mmol/L [facility] Potassium 3.7 3.4 - 5.3 [place] mmol/L [facility] Chloride 105 94 - 109 [place] mmol/L [facility] Carbon Dioxide 27 20 - 32 [place] mmol/L [facility] Anion Gap 6 3 - 14 [place] mmol/L [facility] Glucose 135 (H) 70 - 99 [place] mg/dL [facility] Urea Nitrogen 12 7 - 30 [place] mg/dL [facility] Creatinine 0.77 0.66 - [place] 1.25 [facility] mg/dL [facility] GFR Estimate >90 >60 [place] Non GFR Calc mL/min/1. [facility] 7m2 HOSPITAL GFR Estimate >90 >60 [place] If Black GFR Calc mL/min/1. [facility] 7m2 [facility] Calcium 8.4 (L) 8.5 - [place] 10.1 [facility] mg/dL HOSPITAL Specimen Anatomical Collection Method Collection Time Receive d Time (Source) Location / / Volume Laterality Blood specimen 12/24/2015 1:31 AM 016 1:36 (specimen) CDT AM CDT Vanessa Suggs MD LAB - BLOOD ORDERABLES Performing Organization Address City/State/ZIP Code Phon e Number [facility] [address] [place], [place] [address] [facility] [address] [place] [address] [facility] [phone] CBC with platelets differential (12/24/2015 1:31 AM CDT) [facility] Method Time Signature WBC 7.8 4.0 - [place] 11.0 [facility] 10e9/L [facility] RBC Count 4.67 4.4 - 5.9 [place] 10e12/L [facility] Hemoglobin 14.4 13.3 - [place] 17.7 g/dL [facility] Hematocrit 44.4 40.0 - [place] 53.0 % [facility] MCV 95 78 - 100 [place] fl [facility] MCH 30.8 26.5 - [place] 33.0 pg [facility] MCHC 32.4 31.5 - [place] 36.5 g/dL [facility] RDW 13.8 10.0 - [place] 15.0 % [facility] Platelet Count 306 150 - [address] Diff Method Automated [place] Method [facility] % Neutrophils 52.5 % [facility] % Lymphocytes 33.8 % [facility] % Monocytes 8.0 % [facility] % Eosinophils 4.8 % [facility] % Basophils 0.5 % [facility] % Immature 0.4 % [place] Granulocytes [facility] Nucleated RBCs 0 0 /100 [facility] Absolute 4.1 1.6 - 8.3 [place] Neutrophil [address] [place] [address] Absolute 2.6 0.8 - 5.3 [place] Lymphocytes [address] [place] [address] Absolute 0.6 0.0 - 1.3 [place] Monocytes [address] [place] [address] Absolute 0.4 0.0 - 0.7 [place] Eosinophils [address] [place] [address] Absolute 0.0 0.0 - 0.2 [place] Basophils [address] [place] [address] Abs Immature 0.0 0 - 0.4 [place] Granulocytes [address] [place] [address] Absolute 0.0 [place] Nucleated RBC [facility] Specimen Anatomical Collection Method Collection Time Receive d Time (Source) Location / / Volume Laterality Blood specimen 12/24/2015 1:31 AM 016 1:36 (specimen) CDT AM CDT Vanessa Suggs MD LAB - BLOOD ORDERABLES Performing Organization Address City/State/ZIP Code Phon e Number [facility] [address] [place], [place] [address] [facility] [address] [place], [place] [address] [facility] [phone] (ABNORMAL) Glucose by meter (12/24/2015 1:11 AM CDT) P athologist Signature Glucose 130 (H) 70 - 99 POINT OF CARE mg/dL TEST, GLUCOSE Comment: /RN Notified Specimen Anatomical Collection Method Collection Time Receive d Time (Source) Location / / Volume Laterality 12/24/2015 1:11 AM 6 1:14 CDT AM CDT Provider Unknown LAB - [facility]CT Performing Organization Address City/State/ZIP Code Phon e Number [facility] POINT OF CARE TEST, GLUCOSE POINT OF CARE TEST, GLUCOSE documented in this encounter Visit Diagnoses Diagnosis Nonintractable headache, unspecified chr onicity pattern, unspecified headache type Hyperglycemia Other abnormal glucose documented in this encounter Administered Medications Inactive Administered Medications - up to 3 most recent administrations Medication Order MAR Action Action Date Dose Rate Site 0.9% sodium chloride BOLUS New Bag 12/24/2015 1:40 AM CDT 1,000 mLs Intravenous, 1,000 mL, ONCE, On Wed12/24/15 at 0122, For 1 dose ketorolac (TORADOL) injection 30 mg Given 12/24/2015 1:40 AM CDT 30 mg 30 mg, Intravenous, ONCE, On Wed12/24/15 at 0122, For 1 dose ondansetron (ZOFRAN) injection 4 mg Given 12/24/2015 1:40 AM CDT 4 mg 4 mg, Intravenous, ONCE, Administer over 2-5 Minutes, On Wed12/24/15 at 0222, For 1 dose documented in this encounter Active and Recently Administered Medications Times are shown in CDT. Scheduled Medication Order 12/22/2015 12/23/2015 12/24/2015 0.9% sodium chloride BOLUS (COMPLETED) 0140 (New Bag - Provider: Gale Pino RN)0257 (Stopped - Provider: Gale Pion RN) Intravenous, 1,000 mL, ONCE, On Tu12/24/15 at 0122, For 1 dose ketorolac (TORADOL) injection 30 mg (COMPLETED) 0140 (Given - Provider: Gale Pino RN) 30 mg, Intravenous, ONCE, On 12/24/15 at 0122, For 1 dose ondansetron (ZOFRAN) injection 4 mg (COMPLETED) 0140 (Given - Provider: Gale Pino RN) 4 mg, Intravenous, ONCE, Administer over 2-5 Minutes, On Wed12/24/15 at 0222, For 1 dose documented in this encounter Care Teams Lean Process Deployment Consultant Relationship Specialty Start Date End Date Otilia Recinos MD PCP - General Family Practice 04/02/15 01/12/16 documented as of this encounter
--- OUTSIDE RECORDS SUMMARY | 2022-03-05 03:58 | XMS_ITS | Encounter Summary ---
:1985 Author Organization [facility] Address [address] [place] [id number] Care Team Providers Name Role Phone Gilberto Weathers MD Primary Care Provider Reason for Visit Reason Comments Diabetes Education Encounter Details Date Type Department Care Team Description 02/28/2016 Allied Health/Nurse Health [facility] Diabetes Education Visit [address] [phone] Social History Tobacco Use Types Packs/Day Years [...] - Inhaled Oxygen Concentration - - Weight 105.1 kg (231 lb 12.8 oz) 02/28/2016 12:59 PM CDT Height - - Body Mass Index 32.33 01/13/2016 7:09 AM CDT documented in this encounter Progress Notes Madison Ruano - 02/28/2016 12:53 PM CDT Diabetes Self Management Training: Follow-up Visit Ana Mcgowan presents today for education related to Type 2 diabetes. He is accompanied by self Patient's diabetes management related comments/concerns: I missed my doctor appointment this week, I'm still having a lot of pain in my feet Patient would like this visit to be focused around the following diabetes- related behaviors and goals: needs reinforcement ASSESSMENT: Patient Problem List reviewed for relevant medical history and current medical status. Current Diabetes Management per Patient: Taking diabetes medications? no Patient glucose self monitoring as follows: no meter or logbook available. BG meter: [employer] Contour Next EZ meter BG results: States he checked yesterday, and it was 110 mg/dl - patient vague about how often he is checking and what the results have been BG values are: unable to assess Patient's most recent A1C 6.1 01/13/2016 is meeting goal of <7.0 Nutrition: Patient states he is trying to eat breakfast more often, and watch portions when he eats out. Physical Activity: Physical Limitations: yes, c/o aching in feet and legs No regular exercise Diabetes Complications: Discussed prevention Vitals: Wt Readings from Last 3 Encounters: 02/28/16 105.144 kg (231 lb 12.8 oz) 01/13/16 103.919 kg (229 lb 1.6 oz) 12/24/15 104.327 kg (230 lb) Body mass index is 32.34 kg/(m^2). Last 3 BP: BP Readings from Last 3 Encounters: 01/13/16 102/60 12/24/15 128/76 09/03/15 132/89 History Smoking status ??? Current Every Day Smoker -- 0.25 packs/day for 5 years Smokeless tobacco ??? Never Used Labs: A1C 6.1 01/13/2016 GLC 135 12/24/2015 LDL 122 01/13/2016 HDL CHOLESTEROL Date Value Ref Range Status 01/13/2016 35* >39 mg/dL Final ] GFR ESTIMATE Date Value Ref Range Status 12/24/2015 >90 Non GFR Calc >60 mL/min/1.7m2 Final GFR ESTIMATE IF BLACK Date Value Ref Range Status 12/24/2015 >90 GFR Calc >60 mL/min/1.7m2 Final CR 0.77 12/24/2015 MICROALBUMIN 2.59 01/13/2016 Health Beliefs and Attitudes: Patient Activation Measure Survey Score: LENIN Score (Last Two) 01/13/2016 LENIN Raw Score 37 Activation Score 49.9 LENIN Level 2 Stage of Change: ACTION (Actively working towards change) Progress toward meeting diabetes-related behavioral goals: Healthy Eating: reduce portion sizes, eat 3 meals/day 75% Monitoring: check BG daily and bring meter/log book to all appointments 50% Diabetes knowledge and skills assessment: Patient is knowledgeable in diabetes management concepts related to: Healthy Eating Patient needs further education on the following diabetes management concepts: Monitoring and Reducing Risks Barriers to Learning Assessment: No Barriers identified Based on learning assessment above, most appropriate setting for further diabetes education would be: Group class or Individual setting. INTERVENTION: Needs reinforcement of basic principles in dm mgmt, and reducing risk of prison complications. Patient planning to follow up with PCP re: feet and leg concerns. Education provided today on: AADE Self-Care Behaviors: Monitoring: log and interpret results and frequency of monitoring Reducing Risks: major complications of diabetes, prevention, early diagnostic measures and treatmentof complications, foot care and importance of smoking cessation, Reviewed/explained lab values Opportunities for ongoing education and support in diabetes-self management were discussed. Pt verbalized understanding of concepts discussed and recommendations provided today. Education Materials Provided: No new materials provided today PLAN: Meal Plan Recommendation: eat 3 meals a day and use portion control Monitor blood sugars 1-2x/daily. Continue to work on quitting smoking. FOLLOW-UP: Follow-up appointment scheduled on 03/25/16. Ongoing plan for education and support: Follow-up visit with patient educator in 4 weeks and Follow-up with primary care provider Madison Ruano RD, MICHAEL Diabetes Care Technician Time Spent: 30 minutes Encounter Type: Individual Any diabetes medication dose changes were made via the CDE Protocol and Collaborative Practice Agreement with the patient's primary care provider. A copy of this encounter was shared with the provider. documented in this encounter Plan of Treatment Upcoming Encounters Date Type Specialty Care Team Description 06/16/2022 Virtual Visit Endocrinology Nikolov, Gilberto G, MD [address] [place], [place] [id number] Ky Marcos MD [address] [place], [place] [id number] documented as of this encounter Visit Diagnoses Diagnosis Diabetes mellitus type 2, controlled (H) - Primary Type II or unspecified type diabetes benny litus without mention of complication, not stated as uncontrolled documented in this encounter Care Teams Rod Piler Relationship Specialty Start Date End Date Gilberto Weathers MD PCP - General Internal Medicine 01/13/16 [address] [place] [address] documented as of this encounter
--- OUTSIDE RECORDS SUMMARY | 2022-03-05 03:58 | XMS_ITS | Encounter Summary ---
:1985 Author Organization [facility] Address [address] [place] [id number] Care Team Providers Name Role Phone Gilberto Waethers MD Primary Care Provider Reason for Visit Reason Comments No Show Encounter Details Date Type Department Care Team Description 03/25/2016 Allied Health/Nurse Health [facility] No Show Visit [place] [phone] Social History Tobacco Use Types Packs/Day [...] documented as of this encounter Progress Notes Madison Ruano - 03/25/2016 3:52 PM CDT Patient no-showed today's appointment for follow up DM education. Madison Ruano RD, LD, CDE Registered Dietitian/Risk Management [facility] documented in this encounter Plan of Treatment Upcoming Encounters Date Type Specialty Care Team Description 06/16/2022 Virtual Visit Endocrinology Gilberto Weathers MD [address] [place] [address] Ky Marcos MD [address] [place] [address] documented as of this encounter Visit Diagnoses Diagnosis NO SHOW - Primary documented in this encounter Care Teams Roll Operator Relationship Specialty Start Date End Date Gilberto Weathers MD PCP - General Internal Medicine 01/13/16 [address] [place] [address] documented as of this encounter
--- OUTSIDE RECORDS SUMMARY | 2022-03-05 03:58 | XMS_ITS | Encounter Summary ---
:1985 Author Organization [place] Address [address] [facility] [place] [address] Care Team Providers Name Role Phone Otilia Recinos MD Primary Care Provider Reason for Visit Reason Comments Fever Cough Nausea & Vomiting Encounter Details Date Type Department Care Team Description 06/11/2015 Emergency [facility] Mervat Tan U pper respiratory tract infection, unspecified upper respiratory infection; [facility] Emergency Dep t Non-intractable vomiting with nausea, vo miting of unspecified type [address] [facility] [place], [place] [phone] [phone] [place], [place] [address] (Wo rk) Social History Tobacco Use Types [...] Sign Reading Time Taken Comments Blood Pressure 127/74 06/11/2015 7:10 PM BEND SORTER Pulse 81 06/11/2015 7:43 PM BEND SORTER Temperature 36.6 ??C (97.8 ??F) 06/11/2015 5:23 PM BEND SORTER Respiratory Rate 16 06/11/2015 7:43 PM BEND SORTER Oxygen Saturation 97% 06/11/2015 7:43 PM BEND SORTER Inhaled Oxygen Concentration - - Weight 112.5 kg (248 lb) 06/11/2015 5:23 PM BEND SORTER Height - - Body Mass Index 34.59 01/31/2015 5:54 PM CDT documented in this encounter Discharge Instructions Discharge InstructionsMervat Tan MD - 06/11/2015 7:26 PM BEND SORTER Discharge Instructions Upper Respiratory Infection (URI) in Infants The upper respiratory tract includes the sinuses, nasal passages (nose) and the pharynx and larynx (throat). An upper respiratory infection (URI) is an infection of any portion of the upper airway. These infections are almost always caused by viruses, so antibiotics are usually not helpful. Although Qamar can be uncomfortable and inconvenient, a URI is rarely serious. Return to the Emergency Department if: ??? Your baby seems much more ill, won???t wake up, won???t respond right, or is crying for a long time and won???t calm down. ??? Your child seems short of breath, such as breathing fast, struggling to breathe, having the chest pull in between the ribs or over the collar bones, or making wheezing sounds. ??? Your child is showing signs of dehydration, such as if your baby has had no wet diapers in 4-5 hours, or if your baby starts to have dry mouth and lips, or no saliva or tears. ??? Your child passes out or faints. ??? Your child has a convulsion or seizure. ??? Any fever over 100.4 rectal in a child 3 months of age or younger means the child needs to be seen by a doctor. If this develops in your child, be sure you come back here or be seen right away by your doctor. ??? You notice anything else that worries you. Follow-up: ??? A URI usually lasts several days to a week, but sometimes some symptoms like cough can last several weeks. Your child should be seen by your regular doctor if fever lasts for 3 days. Managing a URI at home: ??? Cough and cold medications are not recommended for use in infants. ??? Motrin??, Advil?? (ibuprofen) and Tylenol?? (acetaminophen) can lower fever and relieve aches and pains. Follow the dosing instructions on the bottle, or ask for a dosing chart. Ibuprofen should not be given to children under 6 months old. Aspirin should not be given to children under 18 years old. ??? A humidifier can help with cough and congestion. Be sure to wash it with soap and water every day. ??? Nasal suctioning and irrigation (saline nasal sprays) can help with nasal congestion. ??? Rest is good and your child may nap more than usual; as long as there are periods when your child is active similar to normal this is okay. ??? Your child may not have much appetite but as long as they are taking plenty of fluids (water, milk, sports drinks, juice, etc) this is okay. If you were given a prescription for [...] call or return to the Emergency Department. Remember that you can always come back to the Emergency Department if you are not able to see your regular doctor in the amount of time listed above, if you get any new symptoms, or if there is anything that worries you. Discharge Instructions Vomiting You have been seen today for vomiting. This is usually caused by a virus, but some bacteria, parasites, medicines or other medical conditions can cause similar symptoms. At this time your doctor does not find that your vomiting is a sign of anything dangerous or life-threatening. However, sometimes the signs of serious illness do not show up right away. If you have new or worse symptoms, you may needto be seen again in the emergency department or by your primary doctor. Remember that serious problems like appendicitis can start as vomiting. Return to the Emergency Department if: ??? You keep throwing up and you are not able to keep liquids down. ??? You feel you are getting dehydrated, such as being very thirsty, not urinating at least every 8-12 hours, or feeling faint or lightheaded. ??? You develop a new fever, or your fever continues for more than 2 days. ??? You have belly pain that seems worse than cramps, is in one spot, or is getting worse over time. ??? You have blood in your vomit or stools. ??? You feel very weak. ??? You are not starting to improve within 24 hours of your visit here. What can I do to help myself? The most important thing to do is to drink clear liquids. If you have been vomiting a lot, it isbest to have only small, frequent sips of liquids. Drinking too much at once may cause more vomiting. If you are vomiting often, you must replace minerals, sodium and potassium lost with your illness. Pedialyte?? and sports drinks can help you replace these minerals. You can also drink clear liquids such as water, weak tea, apple juice, and 7-Up??. Avoid acid liquids (orange), caffeine (coffee) or alcohol. Do not drink milk until you no longer have diarrhea. ??? After liquids are staying down, you may start eating mild foods. Soda crackers, toast, plain noodles, gelatin, applesauce and bananas are good first choices. Avoid foods that have acid, are spicy, fatty or have a lot of fiber (such as meats, coarse grains, vegetables). You may start eating these foods again in about 3 days when you are better. ??? Sometimes treatment includes prescription medicine to prevent nausea and vomiting. If your doctor prescribes these for you, take them as directed. ??? Don???t take ibuprofen, or other nonsteroidal anti-inflammatory medicines without checking with your healthcare provider. If you were given a prescription for [...] call or return to the Emergency Department. Remember that you can always come back to the Emergency Department if you are not able to see your regular doctor in the amount of time listed above, if you get any new symptoms, or if there is anything that worries you. SORTER documented in this encounter Medications at Time of Discharge Medication Sig Dispensed Refills Start Date End Date ondansetron (ZOFRAN ODT) 4 Take 1 tablet (4 10 tablet 0 06/14/2015 MG disintegrating tablet mg) by mouth every 8 hours as needed documented as of this encounter ED Notes Mervat Tan MD - 06/11/2015 6:50 PM CST History Chief Complaint: Fever; Cough; and Nausea & Vomiting. TANNER Mcgowan is a diabetic 30 year old male who presents to the ED at 1725 for evaluation of fever,cough, nausea, and vomiting. The patient reports a several day history of chest congestion, cough, and subjective fevers at home. He indicates he has additionally been nauseated and has vomited twice in the last two days. He is complaining of diffuse body aches and a decreased appetite. After his symptoms did not resolve after two days, he presents to the ED for further evaluation. He denies any recent ill contacts. The patient voices no other concerns or complaints at this time. Allergies: No Known Allergies. Medications: The patient denies any regular medication use. Past Medical History: Diabetes mellitus type 2. Family History: The patient denies any pertinent family history. Social History: The patient smokes 0.5 ppd. He denies alcohol or illicit drug use. Review of Systems Constitutional: Positive for fever. HENT: Positive for congestion. Respiratory: Positive for cough. Gastrointestinal: Positive for nausea and vomiting. Musculoskeletal: Positive for myalgias. All other systems reviewed and are negative. Physical Exam First Vitals: BP: 151/87 mmHg Pulse: 88 Temp: 97.8 ??F (36.6 ??C) Resp: 16 Weight: 112.492 kg (248 lb) SpO2: 97 % Physical Exam Constitutional: He is cooperative. HENT: Right Ear: Tympanic membrane normal. Left Ear: Tympanic membrane normal. Mouth/Throat: Oropharynx is clear and moist and mucous membranes are normal. Eyes: Conjunctivae are normal. Neck: Normal range of motion. Cardiovascular: Regular rhythm and normal heart sounds. Pulmonary/Chest: Effort normal and breath sounds normal. Abdominal: Soft. Normal appearance and bowel sounds are normal. There is no rebound and no guarding. Musculoskeletal: Normal range of motion. Lymphadenopathy: He has no cervical adenopathy. Neurological: He is alert. Skin: Skin is warm and dry. Psychiatric: He has a normal mood and affect. Emergency Department Course Imaging: CXR PA/Lat: Normal. No change. Per Radiology. The patient was informed of these findings. Laboratory: CBC: All WNL (WBC 8.4, HGB 15.3, PLT 323). CMP: Glucose 148 (High), Calcium 8.0 (Low), o/w WNL (Cr 0.78). The patient was informed of these findings. Interventions: NS, 1000mL, IV. Zofran, 4mg, IV. ED Course: After reviewing nursing notes and the patient's past medical history, I examined the patient here inthe emergency department. I discussed with him the plan of care including laboratory workup and X-ray imaging and he was in agreement with this plan. Peripheral IV was inserted and the patient received the above interventions. Blood was drawn and sent for laboratory testing, results above. I personally reviewed the laboratory results with the patient and answered all related questions prior to discharge. Recheck. The patient is resting comfortably. I discussed with the patient the results of the above procedures and he will be discharged to home with a prescription for Zofran. All questions were answered prior to discharge, and the patient was told to follow up with primary care per discharge instructions. Reasons for return as well as follow up were reviewed with the patient. He understands and agrees to this plan. Impression & Plan Medical Decision Makin30 year old man presents with fever, cough, nausea, and vomiting. He does have underlying diabetes. I considered pneumonia but there is no evidence of this by exam or chest x-ray. He does not have any findings consistent with a surgical problem in the abdomen. He did have some subjective fevers, but no actual fever here. Without leukocytosis or other findings, I doubt occult bacterial infection. After Zofran and fluid he is feeling symptomatically improved. I think he can manage as an outpatient. I have discharged the patient with URI instructions, nausea and vomiting instructions, Zofran as needed. Return if worse or new symptoms, follow up in clinic in 2-3 days. Diagnosis: ICD-10-CM 1. Upper respiratory tract infection, unspecified upper respiratory infection J06.9 2. Non-intractable vomiting with nausea, vomiting of unspecified type R11.2 I, Valentine Roman, am serving as a scribe on 06/11/2015 at 6:53 PM to personally document services performed by Dr. Tan based on my observations and the provider's statements to me. Mervat Tan MD 06/11/15 [id number] SORTER Mitali Hernandez RN - 06/11/2015 5:24 PM CST Pt here with fever, cough, N.V for the past couple days. SORTER documented in this encounter Plan of Treatment Upcoming Encounters Date Type Specialty Care Team Description 06/16/2022 Virtual Visit Endocrinology Gilberto Weathers MD [address] [place] [address] Ky Marcos MD [address] [place] [address] documented as of this encounter Procedures Procedure Name Priority Date/Time Associated Comments Diagnosis XR CHEST 2 VIEWS STAT 06/11/2015 6:55 PM Resul ts for this BEND SORTER procedure are i n the results section. CBC WITH PLATELETS & STAT 06/11/2015 6:25 PM R esults for this DIFFERENTIAL BEND SORTER procedure are i n the results section. COMPREHENSIVE STAT 06/11/2015 6:25 PM Results for this METABOLIC PANEL BEND SORTER procedure ar e in the results section. documented in this encounter Results Chest XR, PA & LAT (06/11/2015 6:55 PM BEND SORTER) Anatomical Region Laterality Modality Chest Computed Radiography Specimen (Source) Anatomical Location Collection Method / Collectio n Time Received Time / Laterality Volume Impressions 06/11/2015 7:01 PM BEND SORTER IMPRESSION: Normal. No change. IZNA VIGIL MD Narrative 06/11/2015 7:01 PM [facility]END SORTER CHEST TWO VIEWS ??06/11/2015 6:55 PM HISTORY: ? Cough. COMPARISON: 01/31/2015 Procedure Note Zina Vigil MD - 06/11/2015Formatt ing of this note might be different from the original. CHEST TWO VIEWS 06/11/2015 6:55 PM HISTORY: Cough. COMPARISON: 01/31/2015 IMPRESSION: Normal. No change. ZINA VIGIL MD Mervat Tan MD IMG DIAGNOSTIC IMAGING ORDER URIAH (ABNORMAL) Comprehensive metabolic panel (06/11/2015 6:25 PM BEND SORTER) [facility] Method Time Signature Sodium 141 133 - 144 [facility] mmol/L [facility] Potassium 3.9 3.4 - 5.3 [place] mmol/L [facility] Chloride 106 94 - 109 [place] mmol/L [facility] Carbon Dioxide 29 20 - 32 [place] mmol/L [facility] Anion Gap 6 3 - 14 [place] mmol/L [facility] Glucose 148 (H) 70 - 99 [place] mg/dL [facility] Urea Nitrogen 10 7 - 30 [place] mg/dL [facility] Creatinine 0.78 0.66 - [facility] 1.25 [facility] mg/dL [facility] GFR Estimate >90 >60 [place] Non GFR Calc mL/min/1. [facility] 7m2 [facility] GFR Estimate If >90 >60 [place] Black GFR Calc mL/min/1. [facility] 7m2 [facility] Calcium 8.0 (L) 8.5 - [facility] 10.1 [facility] mg/dL [facility] Bilirubin Total 0.2 0.2 - 1.3 [place] mg/dL [facility] Albumin 3.5 3.4 - 5.0 [place] g/dL [facility] Protein Total 7.0 6.8 - 8.8 [place] g/dL [facility] Alkaline 115 40 - 150 [place] Phosphatase U/L [facility] ALT 32 0 - 70 [place] U/[facility] AST 18 0 - 45 [place] [facility] Specimen Anatomical Collection Method Collection Time Receive d Time (Source) Location / / Volume Laterality Blood specimen 06/11/2015 6:25 PM 016 6:29 (specimen) [facility] PM [facility] Mervat Tan MD LAB - BLOOD ORDERABLES Performing Organization Address City/State/ZIP Code Phon e Number [facility] [address] [address] [place], [place] [address] [facility] [address] [phone] CBC + differential (06/11/2015 6:25 PM BEND SORTER) [facility] Method Time Signature WBC 8.4 4.0 - [place] [address] RBC Count 4.81 4.4 - 5.9 [place] [id number] [facility] Hemoglobin 15.3 13.3 - [place] 17.7 g/dL [facility] Hematocrit 45.6 40.0 - [place] 53.0 % [facility] MCV 95 78 - 100 [facility] MCH 31.8 26.5 - [place] 33.0 pg [facility] MCHC 33.6 31.5 - [place] 36.5 g/dL [facility] RDW 14.0 10.0 - [place] 15.0 % [facility] Platelet Count 323 150 - [address] Diff Method Automated [facility] % Neutrophils 50.9 % [facility] % Lymphocytes 28.1 % [facility] % Monocytes 11.0 % [facility] % Eosinophils 8.8 % [facility] % Basophils 0.8 % [facility] % Immature 0.4 % [place] Granulocytes [facility] Nucleated RBCs 0 0 /100 [facility] Absolute 4.3 1.6 - 8.3 [place] Neutrophil [facility] Absolute 2.4 0.8 - 5.3 [place] Lymphocytes [facility] Absolute 0.9 0.0 - 1.[address] [place] Monocytes [address] [place] [address] Absolute 0.7 0.0 - 0.7 [place] Eosinophils 10e9/L [facility] Absolute 0.1 0.0 - 0.2 [place] Basophils 10e9/L [facility] Abs Immature 0.0 0 - 0.4 [place] Granulocytes 10e9/[facility] Absolute 0.0 [place] Nucleated RBC [facility] Specimen Anatomical Collection Method Collection Time Receive d Time (Source) Location / / Volume Laterality Blood specimen 06/11/2015 6:25 PM 016 6:29 (specimen) [facility] PM [facility] Mervat Tan MD LAB - BLOOD ORDERABLES Performing Organization Address City/State/ZIP Code Phon e Number [place] [address] [facility] [address] [phone] documented in this encounter Visit Diagnoses Diagnosis Upper respiratory tract infection, unspe cified upper respiratory infection Non-intractable vomiting with nausea, vo miting of unspecified type documented in this encounter Administered Medications Inactive Administered Medications - up to 3 most recent administrations Medication Order MAR Action Action Date Dose Rate Site 0.9% sodium chloride BOLUS New Bag 06/11/2015 6:30 PM [facility] SORTER 1,000 mLs 1000 mL/hr Intravenous, 1,000 mL, ONCE, at 1,000 mL/hr, Administer over 1 Hours, On Wed06/11/15 at 1826, For 1 dose ondansetron (ZOFRAN) injection 4 mg Given 06/11/2015 6:30 PM [facility] SOR[facility] 4 mg 4 mg, Intravenous, ONCE, Administer over 2-5 Minutes, On Wed06/11/15 at 1826, For 1 dose documented in this encounter Active and Recently Administered Medications Times are shown in [facility] S[facility]. Scheduled Medication Order 06/09/2015 06/10/2015 06/11/2015 0.9% sodium chloride BOLUS (COMPLETED) 183 (New Bag - Provider: Xochitl Ordaz, ZAHRA)1937 (Stopped - Provider: Xochitl Ordaz, ZAHRA) Intravenous, 1,000 mL, ONCE, at 1,000 mL /hr, Administer over 1 Hours, On Wed06/11/15 at 1826, For 1 dose ondansetron (ZOFRAN) injection 4 mg (COMPLETED) 1830 (Given - Provider: Xochitl Ordaz RN) 4 mg, Intravenous, ONCE, Administer over 2-5 Minutes, On Wed06/11/15 at 1826, For 1 dose documented in this encounter Care Teams Statement Clerk Relationship Specialty Start Date End Date Otilia Recinos MD PCP - General Family Practice 04/02/15 01/12/16 documented as of this encounter
--- OUTSIDE RECORDS SUMMARY | 2022-03-05 03:58 | XMS_ITS | Encounter Summary ---
:1985 Author Organization [place] Address [facility] [place] [address] Care Team Providers Name Role Phone Gilberto Weathers MD Primary Care Provider Reason for Visit Reason Onset Date Comments Patient Request 01/13/2016 Encounter Details Date Type Department Care Team Description 01/13/2016 Telephone [facility] Gilberto Weathers MD Patient Request [place] [address] [facility] [address] [place] [address] [facility] [place] [address] [phone] Social History Tobacco Use Types Packs/Day Years [...] this encounter Miscellaneous Notes Telephone Encounter - Brooke Mistry RN - 01/13/2016 5:15 PM CDT Pt advised. Telephone Encounter - Cristal Ferguson - 01/13/2016 3:47 PM CDT Reason for Call: Request for results: Name of test or procedure: lab and urine test Date of test of procedure: 01/12 [facility] the [facility] OK to leave the result message on voice mail or with a family member? YES Phone number Patient can be reached at: Cell number on file: Telephone Information: Additional comments: none Call taken on 01/13/2016 at 3:47 PM by Cristal Ferguson documented in this encounter Plan of Treatment Upcoming Encounters Date Type Specialty Care Team Description 06/16/2022 Virtual Visit Endocrinology Gilberto Weathers MD [address] [place], [place] [address] Ky Marcos MD [address] [place] [address] documented as of this encounter Visit Diagnoses Not on filedocumented in this encounter Care Teams Senior Control Systems Engineer Relationship Specialty Start Date End Date Gilberto Weathers MD PCP - General Internal Medicine 01/13/16 [address] [place] [address] documented as of this encounter
--- OUTSIDE RECORDS SUMMARY | 2022-03-05 03:58 | XMS_ITS | Encounter Summary ---
:1985 Author Organization [place] Address [facility] [place] [address] Care Team Providers Name Role Phone Gilberto Weathers MD Primary Care Provider Reason for Visit Reason Onset Date Comments Panel Management 04/06/2017 Encounter Details Date Type Department Care Team Description 04/06/2017 Telephone [facility] Gilberto Weathers MD Panel Management [place] [address] [facility] [address] [place] [address] [facility] [place] [address] [phone] Social History Tobacco Use Types Packs/Day Years [...] this encounter Miscellaneous Notes Telephone Encounter - Danyelle Pak MA - 04/06/2017 2:06 PM CST Panel Management Review Patient has the following on his problem list: Diabetes ASA: Not Required Last A1C Lab Results Component Value Date A1C 10.4 12/10/2016 A1C 6.6 03/17/2016 A1C 6.1 01/13/2016 A1C 6.6 02/01/2015 A1C 6.5 01/31/2015 A1C tested: FAILED Last LDL: Lab Results Component Value Date CHOL 233 12/10/2016 Lab Results Component Value Date HDL 38 12/10/2016 Lab Results Component Value Date LDL 145 12/10/2016 Lab Results Component Value Date TRIG 250 12/10/2016 Lab Results Component Value Date CHOLHDLRATIO 4.9 10/15/2014 Lab Results Component Value Date NHDL 195 12/10/2016 Is the patient on a Statin? YES Is the patient on Aspirin? NO Medications HMG CoA Reductase Inhibitors atorvastatin (LIPITOR) 20 MG tablet Last three blood pressure readings: BP Readings from Last 3 Encounters: 12/10/16 118/68 03/17/16 122/70 01/13/16 102/60 Date of last diabetes office visit: 12/15/16 Tobacco History: History Smoking Status ??? Current Every Day Smoker ??? Packs/day: 0.25 ??? Years: 5.00 Smokeless Tobacco ??? Never Used Composite cancer screening Chart review shows that this patient is due/due soon for the following None Summary: Patient is due/failing the following: A1C Action needed: Patient needs office visit for DM. Type of outreach: Phone, spoke to patient. He is moving out of state and will look for a new MD, per Pt Questions for provider review: None Danyelle Pak MA Chart routed to none . 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
--- OUTSIDE RECORDS SUMMARY | 2022-03-05 03:58 | XMS_ITS | Encounter Summary ---
:1985 Author Organization [facility] Address [address] [facility] [place] [address] Care Team Providers Name Role Phone Gilberto Weathers MD Primary Care Provider Reason for Referral Patient Education - Closed Specialty Diagnoses / Procedures Referred By Contact Refer red To Contact Diabetes Education Diagnoses Type 2 diabetes mellitus without complication (H) Gilberto Weathers MD [address] [place] [address] Referral ID Status Reason Start Date Expiration Date Visits Requ ested Visits Authorized [id number] Closed 01/13/2016 01/12/2017 1 1 ision Services - Closed Specialty Diagnoses / Procedures Referred By Contact Refer red To Contact Diagnoses Type 2 diabetes mellitus without complication (H) Gilberto Weathers MD [facility] [address] [place] [address] [address] [facility] [address] [place] [address] Phone: Referral ID Status Reason Start Date Expiration Date Visits Requ ested Visits Authorized [id number] Closed 01/13/2016 01/12/2017 1 1 Reason for Visit Reason Comments Establish Care Physical Diabetes Encounter Details Date Type Department Care Team Description 01/13/2016 Office Visit [facility] Nikolov, Gilberto Routin e general medical examination at a health care facility (Primary Dx); Clinic Ciro Lafleur MD Tobacco abuse; [address] Episodic clus ter headache, not intractable; [address] Type 2 diabetes mellitus without complic ation (H); [place], [place] Congestion of paranasal sinus; [id number] Non morbid obesity due to excess calorie s [phone] Social History Tobacco Use Types Packs/Day Years [...] Sign Reading Time Taken Comments Blood Pressure 102/60 01/13/2016 7:09 AM CDT Pulse 86 01/13/2016 7:09 AM CDT Temperature 36.7 ??C (98.1 ??F) 01/13/2016 7:09 AM CDT Respiratory Rate 16 01/13/2016 7:09 AM CDT Oxygen Saturation 97% 01/13/2016 7:09 AM CDT Inhaled Oxygen Concentration - - Weight 103.9 kg (229 lb 1.6 oz) 01/13/2016 7:09 AM CDT Height 180.3 cm (5' 11) 01/13/2016 7:09 AM CDT Body Mass Index 31.95 01/13/2016 7:09 AM CDT documented in this encounter Patient Instructions Patient InstructionsGia Hernandez LPN - 01/13/2016 7:13 AM CDT You can reach your [facility] Care Team any time of the day by calling [phone]. This number will put you in touch with the 24 hour nurse line even if the clinic is closed. The clinic hours for [facility] are: Wednesday through 7am to 6pm Wednesday 7am to 5pm Wednesday 8am to 12p for Pediatrics only. To contact your Licensing Director please call [phone]. This is a direct number for your care team during clinic hours. [facility] is now open for your convenience: Wednesday through Wednesday 7:30am to 7pm Wednesday and Wednesday 9am to 3pm They are closed on all major holidays. documented in this encounter Progress Notes Gilberto Weathers MD - 01/13/2016 7:11 AM CDT SUBJECTIVE: CC: Ana Mcgowan is an 30 year old male who presents for preventative health visit. Healthy Habits: ?? Do you get at least three servings of calcium containing foods daily (dairy, green leafy vegetables, etc.)? yes ?? Amount of exercise or daily activities, outside of work: 3 day(s) per week ?? Problems taking medications regularly No ?? Medication side effects: No ?? Have you had an eye exam in the past two years? no ?? Do you see a dentist twice per year? yes ?? Do you have sleep apnea, excessive snoring or daytime drowsiness?no Other concerns to address: Seen in ED for PALUMBO, has had chronic recurrent PALUMBO, 2-3 times a week. Left frontal with nasal drainage,eye irritation. Not on medications. Has H/O DM. On diet , exercise . Blood sugars are controlled. No parestesias. No hypoglycemias. Today's PHQ-2 Score: PHQ-2 (??1999 Pfizer) 01/13/2016 Q1: Little interest or pleasure in doing things 0 Q2: Feeling down, depressed or hopeless 0 PHQ-2 Score 0 Abuse: Current or Past(Physical, Sexual or Emotional)- No Do you feel safe in your environment - Yes Social History Substance Use Topics ??? Smoking status: Current Every Day Smoker -- 0.25 packs/day for 5 years ??? Smokeless tobacco: Never Used ??? Alcohol Use: No No alcohol @ all. Last PSA: No results found for: PSA Recent Labs Lab Test 10/15/14 0520 CHOL 165 HDL 34* LDL 96 TRIG 175* CHOLHDLRATIO 4.9 Reviewed orders with patient. Reviewed health maintenance and updated orders accordingly - Yes All Histories reviewed and updated in [facility]. PROBLEMS TO ADD ON... Discussed smoking cessation. ROS: C: NEGATIVE for fever, chills, change in weight I: NEGATIVE for worrisome rashes, moles or lesions E: NEGATIVE for vision changes or irritation ENT: NEGATIVE for ear, mouth and throat problems R: NEGATIVE for significant cough or SOB CV: NEGATIVE for chest pain, palpitations or peripheral edema GI: NEGATIVE for nausea, abdominal pain, heartburn, or change in bowel habits male: negative for dysuria, hematuria, decreased urinary stream, erectile dysfunction, urethral discharge M: NEGATIVE for significant arthralgias or myalgia N: NEGATIVE for weakness, dizziness or paresthesias P: NEGATIVE for changes in mood or affect Problem list, Medication list, Allergies, and Medical/Social/Surgical histories reviewed in [facility] andupdated as appropriate. OBJECTIVE: BP 102/60 mmHg Pulse 86 Temp(Src) 98.1 ??F (36.7 ??C) (Oral) Resp 16 Ht 5' 11 (1.803 m) Wt 229 lb 1.6 oz (103.919 kg) BMI 31.97 kg/m2 SpO2 97% EXAM: GENERAL: healthy, alert and no distress EYES: [...] normal PSYCH: mentation appears normal, affect normal/bright ASSESSMENT/PLAN: ICD-10-CM 1. Routine general medical examination at a health care facility Z00.00 TSH with free T4 reflex Hepatic panel Microalbumin quantitative random urine 2. Tobacco abuse Z72.0 varenicline (CHANTIX STARTING MONTH TEDDY) 0.5 MG X 11 & 1 MG X 42 tablet 3. Episodic cluster headache, not intractable G44.019 indomethacin (INDOCIN) 50 MG capsule 4. Type 2 diabetes mellitus without complication (H) E11.9 OPHTHALMOLOGY ADULT REFERRAL Lipid panel reflex to direct LDL Hemoglobin A1c TSH with free T4 reflex Hepatic panel Microalbumin quantitative random urine [facility] REFERRAL 5. Congestion of paranasal sinus R09.81 fluticasone (FLONASE) 50 MCG/ACT nasal spray COUNSELING: Reviewed preventive health counseling, as reflected in patient instructions Regular exercise Healthy diet/nutrition Vision screening Hearing screening Medications side effects reviewed reports that he has been smoking. He has never used smokeless tobacco. Tobacco Cessation Action Plan: Pharmacotherapies : Chantix Estimated body mass index is 31.97 kg/(m^2) as calculated from the following: Height as of this encounter: 5' 11 (1.803 m). Weight as of this encounter: 229 lb 1.6 oz (103.919 kg). Weight management plan: Discussed healthy diet and exercise guidelines and patient will follow up in3 months in clinic to re-evaluate. Counseling Resources: ATP IV Guidelines Pooled Cohorts Equation Calculator FRAX Risk Assessment ICSI Preventive Guidelines Dietary Guidelines for Americans, 2010 USDA's MyPlate ASA Prophylaxis Lung CA Screening Gilberto Weathers MD [facility] documented in this encounter Nursing Notes Gia Hernandez LPN - 01/13/2016 7:11 AM CDT Chief Complaint Patient presents with ??? Establish Care ??? Physical ??? Diabetes Initial BP 102/60 mmHg Pulse 86 Temp(Src) 98.1 ??F (36.7 ??C) (Oral) Resp 16 Ht 5' 11 (1.803 m) Wt 229 lb 1.6 oz (103.919 kg) BMI 31.97 kg/m2 SpO2 97% Estimated body mass index is 31.97 kg/(m^2) as calculated from the following: Height as of this encounter: 5' 11 (1.803 m). Weight as of this encounter: 229 lb 1.6 oz (103.919 kg). BP completed using cuff size: large documented in this encounter Plan of Treatment Upcoming Encounters Date Type Specialty Care Team Description 06/16/2022 Virtual Visit Endocrinology Gilberto Weathers MD [address], [place] [id number] Ky Marcos MD [address] [place] [address] Scheduled Referrals Name Type Priority Associated Diagnoses Order S chedule OPHTHALMOLOGY ADULT Referral Routine Type 2 diabetes Order ed: 01/13/2016 REFERRAL mellitus without complication (H) documented as of this encounter Procedures Procedure Name Priority Date/Time Associated Diagnosis Comme nts ALBUMIN RANDOM URINE Routine 01/13/2016 8:18 AM Type 2 diabete s Results for this QUANTITATIVE CDT mellitus without procedure a re in complication (H) the results Routine general section. medical examination at a health care facility TSH WITH FREE T4 Routine 01/13/2016 7:52 AM Type 2 diabetes Re sults for this REFLEX CDT mellitus without procedure a re in complication (H) the results Routine general section. medical examination at a health care facility LIPID REFLEX TO Routine 01/13/2016 7:52 AM Type 2 diabetes Res ults for this DIRECT LDL PANEL CDT mellitus without procedu re are in complication (H) the results section. HEPATIC FUNCTION Routine 01/13/2016 7:52 AM Type 2 diabetes Re sults for this PANEL CDT mellitus without procedure a re in complication (H) the results Routine general section. medical examination at a health care facility HEMOGLOBIN A1C Routine 01/13/2016 7:52 AM Type 2 diabetes Resu lts for this CDT mellitus without procedure a re in complication (H) the results section. documented in this encounter Results Microalbumin quantitative random urine (01/13/2016 8:18 AM CDT) P athologist Signature Creatinine 244 mg/dL [place] Urine [facility] Albumin Urine 6 mg/L [place] mg/L [facility] Albumin Urine 2.59 0 - 17 [place] mg/g Cr mg/g Cr [facility] Specimen Anatomical Collection Method Collection Time Receive d Time (Source) Location / / Volume Laterality Urine specimen 01/13/2016 8:18 AM 016 8:23 (specimen) CDT AM CDT Gilberto Weathers MD LAB - URINE ORDERABLES Performing Organization Address City/[facility]/ZIP Code Phon e Number [facility] [address] [place] [address] [phone] [facility] [address] [place] [place] [address], U [phone] (ABNORMAL) Hepatic panel (01/13/2016 7:52 AM CDT) [facility] Method Time Signature Bilirubin Direct <0.1 0.0 - 0.2 [facility] mg/dL [facility] Bilirubin Total 0.4 0.2 - 1.3 [facility] mg/dL [facility] Albumin 3.5 3.4 - 5.0 [facility] g/dL [facility] Protein Total 6.6 (L) 6.8 - 8.8 [facility] g/dL [facility] Alkaline 91 40 - 150 [facility] Phosphatase U/L [facility] ALT 22 0 - 70 [facility] U/L [facility] AST 10 0 - 45 [facility] U/L [facility] Specimen Anatomical Collection Method Collection Time Receive d Time (Source) Location / / Volume Laterality Blood specimen 01/13/2016 7:52 AM 016 7:57 (specimen) CDT AM CDT Gilberto Weathers MD LAB - BLOOD ORDERABLES Performing Organization Address City/[facility]/ZIP Code Phon e Number [facility] [address] [place] [address] TSH with free T4 reflex (01/13/2016 7:52 AM CDT) P athologist Signature TSH 2.57 0.40 - 4.00 [facility] mU/L [facility] Specimen Anatomical Collection Method Collection Time Receive d Time (Source) Location / / Volume Laterality Blood specimen 01/13/2016 7:52 AM 016 7:57 (specimen) CDT AM CDT Gilberto Weathers MD LAB - BLOOD ORDERABLES Performing Organization Address City/State/ZIP Code Phon e Number [facility] [address] [place] [address] (ABNORMAL) Hemoglobin A1c (01/13/2016 7:52 AM CDT) Analysis Performed At [facility] logist Time Signature Hemoglobin A1C 6.1 (H) 4.3 - 6.0 [facility] Comment: Reviewed: OK with previous Specimen Anatomical Collection Method Collection Time Receive d Time (Source) Location / / Volume Laterality Blood specimen 01/13/2016 7:52 AM 016 7:57 (specimen) CDT AM CDT iGlberto Weathers MD LAB - BLOOD ORDERABLES Performing Organization Address City/[facility]/ZIP Code Phon e Number [facility] [address] [place], [place] [address] [address] (ABNORMAL) Lipid panel reflex to direct LDL (01/13/2016 7:52 AM CDT) [facility] gist Method Time Signature Cholesterol 186 <200 [place] mg/dL [facility] Triglycerides 147 <150 [place] mg/dL [facility] HDL Cholesterol 35 (L) >39 mg/dL [facility] LDL Cholesterol 122 (H) <100 [place] Calculated mg/dL [facility] Comment: Above desirable: ??100-129 mg/dl Borderline High: ??130-159 mg/dL High: ? 160-189 mg/dL Very high: ? >189 mg/dl Non HDL Cholesterol 151 (H) <130 mg/dL [facility] Comment: Above Desirable: ??130-159 mg/dl Borderline high: ??160-189 mg/dl High: ? 190-219 mg/dl Very high: ? >219 mg/dl Specimen Anatomical Collection Method Collection Time Receive d Time (Source) Location / / Volume Laterality Blood specimen 01/13/2016 7:52 AM 016 7:57 (specimen) CDT AM CDT Gilberto Weathers MD LAB - BLOOD ORDERABLES Performing Organization Address City/State/ZIP Code Phon e Number [facility] [address] [place] [address] documented in this encounter Visit Diagnoses Diagnosis Routine general medical examination at a health care facility - Primary Tobacco abuse Tobacco use disorder Episodic cluster headache, not intractab le Episodic cluster headache Type 2 diabetes mellitus without complic ation (H) Congestion of paranasal sinus Non morbid obesity due to excess calorie s documented in this encounter Care Teams Graphics Programmer Relationship Specialty Start Date End Date Gilberto Weathers MD PCP - General Internal Medicine 01/13/16 [address] [place], [place] [phone] documented as of this encounter
--- OUTSIDE RECORDS SUMMARY | 2022-03-05 03:58 | XMS_ITS | Encounter Summary ---
:1985 Author Organization [place] Address [address] [facility] [place] [address] Care Team Providers Name Role Phone Otilia Recinos MD Primary Care Provider Reason for Visit Reason Comments Hand Pain finger pain Encounter Details Date Type Department Care Team Description 05/03/2015 Emergency [facility] Emergency Department [address] [place] [address] Social History Tobacco Use Types Packs/Day Years Used Date Smoking Tobacco: Never Assessed Intimate Partner Violence Answer Date Recorded Within [...] AM CDT documented as of this encounter Medications at Time of Discharge [...] meals) (H) documented as of this encounter Plan of Treatment Upcoming Encounters Date Type Specialty Care Team Description 06/16/2022 Virtual Visit Endocrinology Gilberto Weathers MD [address] [place] [address] Ky Marcos MD [address] [place] [address] documented as of this encounter Visit Diagnoses Not on filedocumented in this encounter Care Teams Nuclear Supervising Operator Relationship Specialty Start Date End Date Otilia Recinos MD PCP - General Family Practice 04/02/15 01/12/16 documented as of this encounter
--- OUTSIDE RECORDS SUMMARY | 2022-03-05 03:58 | XMS_ITS | Encounter Summary ---
:1985 Author Organization [facility] Address [facility] [place] [address] Care Team Providers Name Role Phone Otilia Recinos MD Primary Care Provider Reason for Visit Reason Onset Date Comments No Show No Show 04/12/2015 Encounter Details Date Type Department Care Team Description 04/12/2015 Office Visit [facility] Jorje, NO SHOW (P rimary Dx) Clinic [place] MD Otilia [address] [facility] [phone] [place] [address] [place] [address] Social History Tobacco Use Types [...] documented as of this encounter Progress Notes Dustdorahoft, Eloise, ANCIENT ART CURATOR - 04/12/2015 3:37 PM CST This patient was a no show for this scheduled appointment. UCT COMMUNICATIONS MANAGER documented in this encounter Plan of Treatment Upcoming Encounters Date Type Specialty Care Team Description 06/16/2022 Virtual Visit Endocrinology Gilberto Weathers MD [address] [place], [place] [id number] Ky Marcos MD [address] [place] [address] documented as of this encounter Visit Diagnoses Diagnosis NO SHOW - Primary documented in this encounter Care Teams Skull Splitter Relationship Specialty Start Date End Date Otilia Recinos MD PCP - General Family Practice 04/02/15 01/12/16 documented as of this encounter
--- OUTSIDE RECORDS SUMMARY | 2022-03-05 03:58 | XMS_ITS | Encounter Summary ---
:1985 Author Organization [facility] Address [address] [place] [address]. [place] [address] Care Team Providers Name Role Phone Gilberto Weathers MD Primary Care Provider Reason for Visit Reason Comments Diabetes Education Encounter Details Date Type Department Care Team Description 02/14/2016 Allied Health/Nurse Health [facility] Diabetes Education Visit [address] [address] Social History Tobacco Use Types [...] this encounter Progress Notes Madison Ruano - 02/14/2016 8:43 AM CDT Diabetes Self Management Training: Individual Review Visit Ana Mcgowan presents today for education related to Type 2 diabetes- diagnosed a year ago. He is accompanied by self Patient's diabetes management related comments/concerns: lately I've been waking up with my feet hurting, I'm interested in losing weight and need to learn more about my diabetes Patient's emotional response to diabetes: expresses readiness to learn and concern for health and well-being Patient would like this visit to be focused around the following diabetes- related behaviors and goals: Healthy Eating and Monitoring ASSESSMENT: Patient Problem List and Family Medical History reviewed for relevant medical history, current medical status, and diabetes risk factors. Current Diabetes Management per Patient: Taking diabetes medications? no Past Diabetes Education: Yes Patient glucose self monitoring as follows: BG meter taught today. BG meter: [id number] Contour Next EZ meter BG result: 227 mg/dl at today's visit (post breakfast) BG values are: unable to assess Patient's most recent A1C 6.1 01/13/2016 is meeting goal of <7.0 Nutrition: Patient skips breakfast regularly, eats out more than once a week and has an inconsistent intake of carbohydrates Breakfast - skips or cereal (cheerios) with 2% milk or glazed doughnut or 2 slices jelly bread Lunch - chipotle burrito with rice Dinner - subway tuna sandwich (sometimes skips) Snacks - chips, grapes, apple Beverages: Cultural/buddhist diet restrictions: No Biggest Challenge to Healthy Eating: eating out Physical Activity: Physical Limitations: none Goes to gym in apartment building 3x/week- uses treadmill, states it hasn't helped me lose weight Diabetes Risk Factors: Previous dx Diabetes Complications: Answered questions about neuropathy symptoms Vitals: Wt Readings from Last 3 Encounters: 01/13/16 103.919 kg (229 lb 1.6 oz) 12/24/15 104.327 kg (230 lb) 09/03/15 101.606 kg (224 lb) Last 3 BP: BP Readings from Last [...] Final CR 0.77 12/24/2015 MICROALBUMIN 2.59 01/13/2016 Socio/Economic Considerations: Support system: not assessed Health Beliefs and Attitudes: Patient Activation Measure Survey Score: LENIN Score (Last Two) 01/13/2016 LENIN Raw Score 37 Activation Score 49.9 LENIN Level 2 Stage of Change: PREPARATION (Decided to change - considering how) Diabetes knowledge and skills assessment: Patient is knowledgeable in diabetes management concepts related to: Being Active Patient needs further education on the following diabetes management concepts: Healthy Eating, Reducing Risks and Monitoring Barriers to Learning Assessment: No Barriers identified Based on learning assessment above, most appropriate setting for further diabetes education would be: Group class or Individual setting. INTERVENTION: Reviewed basic principles of dm mgmt including glycemic effect of food choices, importance of SMBG, and symptoms/prevention of complications. Education provided today on: AADE Self-Care Behaviors: Healthy Eating: consistency in amount, composition, and timing of food intake, weight reduction, eating out and portion control Monitoring: purpose, proper technique, log and interpret results, individual blood glucose targets, frequency of monitoring and proper sharps disposal Taking Medication: answered questions about diabetes and weight loss medications Reducing Risks: answered questions about symptoms of neuropathy, discussed BG variability as a risk factor when diet is inconsistent (eg eating one large meal per day) Opportunities for ongoing education and support in diabetes-self management were discussed. Pt verbalized understanding of concepts discussed and recommendations provided today. Education Materials Provided: List of Diabetes Phone Apps, Carbohydrate Counting, and Jeniffer Contour Next EZ meter kit PLAN: Meal Plan Recommendation: avoid skipping meals, use portion control, choose lower CHO/ lower calorieoptions when dining out Check blood sugars 1-2x/day, vary testing times Keep a blood glucose record and bring meter to next visit. FOLLOW-UP: CDE follow-up appointment scheduled on Feb.27. Follow-up with PCP recommended to discuss foot pain. Chart routed to referring provider. Ongoing plan for education and support: Smartphone Keyla(s), Follow-up visit with eyewear consultant in2 weeks, and Follow-up with primary care provider Madison Ruano RD, CDE Diabetes Capacity Planning Engineer Time Spent: 60 minutes Encounter Type: Individual Any diabetes medication dose changes were made via the CDE Protocol and Collaborative Practice Agreement with the patient's primary care provider. A copy of this encounter was shared with the provider. documented in this encounter Plan of Treatment Upcoming Encounters Date Type Specialty Care Team Description 06/16/2022 Virtual Visit Endocrinology Gilberto Weathers MD [address] [place] [address] Ky Marcos MD [address] [place] [address] documented as of this encounter Visit Diagnoses Diagnosis Diabetes mellitus type 2, controlled (H) - Primary Type II or unspecified type diabetes benny litus without mention of complication, not stated as uncontrolled documented in this encounter Care Teams Die Trouble Shooter Relationship Specialty Start Date End Date Gilberto Weathers MD PCP - General Internal Medicine 01/13/16 [address] [place], [place] [id number] documented as of this encounter
--- OUTSIDE RECORDS SUMMARY | 2022-03-05 03:59 | XMS_ITS | Encounter Summary ---
:1985 Author Organization [place] Address [address] [facility] [place] [address] Care Team Providers Name Role Phone No Ref-Primary, Physician Primary Care Provider Unavailable Reason for Visit Reason Comments Palpitations Encounter Details Date Type Department Care Team Description 10/14/2014 - Emergency [facility] Jennifer Sargent MD [facility] [address] [facility] [address] [place], [place] [id number] Sinus tachycardia; 10/15/2014 [facility] Darny Lepe MD [address] [place] [address] Chest pain Dept [address] [place] [address] Social History Tobacco Use Types [...] Sign Reading Time Taken Comments Blood Pressure 127/53 10/15/2014 9:49 AM CDT Pulse 94 10/14/2014 11:31 AM CDT Temperature 36.2 ??C (97.1 ??F) 10/15/2014 9:49 AM CDT Respiratory Rate 16 10/15/2014 9:49 AM CDT Oxygen Saturation 99% 10/15/2014 9:49 AM CDT Inhaled Oxygen Concentration - - Weight - - Height - - Body Mass Index - - documented in this encounter Discharge Summaries Seun, Mikala Paez PA-C - 10/15/2014 9:35 AM CDT [facility] Outpatient / Observation Unit Discharge Summary Jenny Jeronimo Date of : 1985 Age: [age] year old Date of Admission: 10/14/2014 Date of Discharge: 10/15/2014 10:01 AM Admitting Physician: Daryn Lepe MD Discharge Physician: Mikala Kohli PA-C Discharging Service: Hospitalist Primary Provider: No Ref-Primary, Physician Primary Care Physician Phone Number: None Primary Discharge Diagnoses: Jenny Jeronimo was admitted on 10/14/2014 for concerns of acute episode of tachycardia and substernal chest discomfort. 1. Episode of sinus tachycardia. Possible related to excessive use of caffeine. 2. Chest discomfort related to #1. Negative stress echo. Secondary Discharge Diagnoses: No past medical history on file. Code Status: Full Code Brief Hospital Summary: Reason for your hospital stay You were admitted for episode of palpitation and chest discomfort. Your EKG revealed that you were in sinus tachycardia. Your stress test was also negative for any concerns for heart blockage. Your labs and thyroid function were normal. We suspect your symptoms were related to excessive caffeine. We recommend that you cut back on your caffeine intake. Reduce your fat and cholesterol and increase exercise. Follow up with your Primary MD as needed. Significant Lab During Hospitalization: No results for input(s): PH, PHARTERIAL, PO2, [id number], SAT, PCO2, HCO3, BASEEXCESS, NUNU, BEB in the last 168 hours. Invalid input(s): [id number] Recent Labs Lab 10/15/14 0520 10/14/14 1846 10/14/14 0718 NA -- -- 137 POTASSIUM 3.9 3.7 3.3* CHLORIDE -- -- 102 CO2 -- -- 22 ANIONGAP -- -- 13 GLC -- -- 158* BUN -- -- 9 CR -- -- 0.70 GFRESTIMATED -- -- >90Non GFR Calc GFRESTBLACK -- -- >90African Chadian GFR Calc WENDIE -- -- 8.4* Recent Labs Lab 10/14/14 1516 10/14/14 1205 10/14/14 0751 10/14/14 0718 TROPONIN -- -- 0.00 -- TROPI <0.015The 99th percentile for upper reference range is 0.045 ug/L. Troponin values in the range of 0.045 - 0.120 ug/L may be associated with risks of adverse clinical events. <0.015The 99thpercentile for upper reference range is 0.045 ug/L. Troponin values in the range of 0.045 - 0.120 ug/L may be associated with risks of adverse clinical events. -- <0.015The 99th percentile for upperreference range is 0.045 ug/L. Troponin values in the range of 0.045 - 0.120 ug/L may be associated with risks of adverse clinical events. Recent Labs Lab 10/14/14 0850 COLOR Straw APPEARANCE Clear URINEGLC Negative URINEBILI Negative URINEKETONE Negative SG 1.004 UBLD Negative URINEPH 5.0 PROTEIN Negative NITRITE Negative LEUKEST Negative RBCU <1 WBCU 1 Significant Imaging During Hospitalization: Results for orders placed or performed during the hospital encounter of 10/14/14 XR Chest Port 1 View Narrative PORTABLE CHEST ONE VIEW 10/14/2014 7:51 AM HISTORY: Chest pain. Impression IMPRESSION: PA and lateral views of the chest. Lungs are clear. Heart is normal in size. No effusions are evident. No pneumothorax. ROBERT ORTIZ MD Pending Results: Unresulted Labs Ordered in the Past 30 Days of this Admission Date and Time Order Name Status Description 09/24/2014 1457 Beta strep group A culture In process Consultations This Hospital Stay: No consultations were requested during this admission Discharge Instructions and Follow-Up: Follow up with primary care provider, No Ref-Primary, Physician within 7 days for hospital follow- up. No follow up labs or test are needed. Discharge Disposition: Discharged to home Discharge Medications: There are no discharge medications for this patient. Allergies: No Known Allergies Condition and Physical on Discharge: Discharge condition: Stable Vitals: Blood pressure 122/65, pulse 94, temperature 97 ??F (36.1 ??C), temperature source Oral, resp. rate 16, SpO2 98 %. 0 lbs 0 oz GENERAL: Comfortable. PSYCH: pleasant, oriented, No acute distress. HEENT: PERRLA. Normal conjunctiva, normal hearing, nasal mucosa and Oropharynx are normal. NECK: Supple, no neck vein distention, adenopathy or bruits, normal thyroid. HEART: Normal S1, S2 with no murmur, no pericardial rub, gallops or S3 or S4. LUNGS: Clear to auscultation, normal Respiratory effort. No wheezing, rales or ronchi. ABDOMEN: Soft, no hepatosplenomegaly, normal bowel sounds. Non-tender, non distended. EXTREMITIES: No pedal edema, +2 pulses bilateral and equal. SKIN: Dry to touch, No rash, wound or ulcerations. NEUROLOGIC: CN 2-12 intact, BL 5/5 symmetric upper and lower extremity strength, sensation is intactwith no focal deficits. documented in this encounter H&P Notes Mikala Kohli PA-C - 10/14/2014 12:35 PM CDT [facility] Outpatient / Observation Unit History and Physical Exam Jenny Jeronimo Date of : 1985 Age: [age] year old Date of Admission: 10/14/2014 Primary care provider: No Ref-Primary, Physician Assessment: Jenny Jeronimo is a 29 year old male with no significant PMH who presents with acute onset of chest palpitation and pressure around 6 am with associated nausea and diaphoresis. Upon arrival he was foundto be in sinus tach as high as the 140's and initally there was concern for St elevation in leads V1and V2 but there was no reciprocal changes and the elevation remained constant even after HR down tothe 90's (suspect baseline). TTE obtained in the ED which showed normal EF but did have evidence of LVH. Cardiology consulted in ED and recommended admission for serial trops and stress echo. Patient is being registered to observation for further evaluation of tachycardia and eval of poss undiagnosed HTN (121/108) 1. Episode of palpitation with associated CP: sinus tach captured on EKG. No triggers identified (denies illicit drug use, did have allergy med over 1 week ago, baseline 5-6 cups of caffeine a day). Will check TSH. ECHO performed showed LVH with normal EF. Due to concerns of ST elevation in V1/2, and presence of LVH, cards recommending observing on tele, serial trops and stress echo in am. 2. Questionable HTN: did have a couple readings with DBP at 90-108. O/w rest of BP not too concerning. No family hx of early onset HTN. Doesn't appear to have secondary HTN. Will cont to monitor for now. 3. Hypokalemia: replete K and check mag. Keep K >4 and Mg >2 ghazala given arrhythmia. Plan: 1. [place] to Observation 2. Continue telemetry 3. Follow serial troponins, check fasting lipids 4. Stress testing with Stress Echo 5. Cont Aspirin EC 81 mg po for now 6. Blood pressure monitoring 7. Morphine and nitroglycerine PRN for pain 8. regular diet, No caffeine 9. DVT prophylaxis: pt at low risk, encourage ambulation 10. Code Status: full 11. Dispo: home tomorrow after stress echo Chief Complaint: Chest Pain, palpitations. History of Present Illness: Jenny, a 29 year old male, presents to the ED with complaint of acute onset of palpitations around 6 am. States he was staying up through out the night watching TV when all the sudden he felt palpitations and that he had left sided chest pressure with mild nausea and SOB. This lasted about 45 mins orso. He denies every having palpitations in the past. Denies any illicit drug use or new meds. He didtake some OTC allergy med over 1 week ago but none since. He does admit to using caffeine. About 2-3 cups of coffee a day with 3-4 sodas on a daily basis. He denies any hx of exertional angina or DOEbut does admit that he is not all that active. He lives on the 4th floor and on days that he has to use the stairs he feels out of breath and has some chest pressure. He denies any family hx of early CAD, HTN. No CAD in the family that he is aware of. He's never been told he has high BP, although he does not see a physician regularly. On arrival to ED his HR was in the low 100's but did get as high as 140. His BP and HR ultimately came down with Nitroglycerin. His initial EKG showed sinus tach at 117 withST elevation of V1/V2. HR came down to the 90's and really with no change in the ST segments. Cardiology was contacted in the ED and recommended bedside echo that showed mild LVH but o/w negative for RWMA. He was recommended for admission Past Medical History: Denies any medical problems Past Surgical History: None Social History: History Social History ??? Marital Status: Single Spouse Name: N/A Number of Children: N/A ??? 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 Pertinent positives and negatives are noted above. Otherwise negative for contributory information. Mild cold like sxs 2 weeks ago. O/w resolved. NO n/v/d. Mild Right sided upper abd pain with palpation for the last couple of days No pleuritic CP. Physical Exam: Blood pressure 116/66, pulse 94, temperature 97.4 ??F (36.3 ??C), temperature source Oral, resp. rate 16, SpO2 99 %. GENERAL: healthy, alert and no distress EYES: Eyes grossly normal to inspection, extraocular movements - intact, and PERRL HENT: ear canals- normal; TMs- normal; Nose- normal; Mouth- no ulcers, no lesions NECK: no tenderness, no adenopathy, no asymmetry, no masses, no stiffness; thyroid- normal to palpation RESP: lungs clear to auscultation - no rales, no rhonchi, no wheezes CV: regular rates and rhythm, normal S1 S2, no S3 or S4, no murmur, click or rub and no irregular beats ABDOMEN: soft, no tenderness, no hepatosplenomegaly, no masses, normal bowel sounds, mild reproducible tenderness to palpation on the Rt lateral chest/upper abd wall, neg [place] sxs. MS: extremities- no gross deformities noted, no edema SKIN: no suspicious lesions, no rashes NEURO: strength and tone- normal, sensory exam- grossly normal, mentation- intact, speech- normal, reflexes- symmetric PSYCH: Alert and oriented times 3; coherent speech. Affect is normal. Data: ECG 1: Indication: Tachycardia. ST elevation V1+V2. Otherwise normal ECG. Completed at 7:17. Read at 7:18. Rate 117 bpm. OR interval 170. QRS duration 106. QT/QTc 316/440. P-R-T axes 49 66 29. ECG 2: Indication: Tachycardia. ST elevation V1+V2. Otherwise normal ECG. Completed at 7:43. Read at 7:45. Rate 117 bpm. OR interval 168. QRS duration 104. QT/QTc 318/443. P-R-T axes 45 59 28. No change fromprevious. ECG 3: Indication: Tachycardia. Otherwise normal ECG. Completed at 8:31. Read at 8:33. Rate 101 bpm. OR interval 172. QRS duration 108. QT/QTc 340/440. P-R-T axes 38 50 28. Recent Labs Lab 10/14/14 0718 WBC 8.9 HGB 15.4 HCT 44.8 MCV 92 PLT 347 Recent Labs Lab 10/14/14 0718 NA 137 POTASSIUM 3.3* CHLORIDE 102 CO2 22 ANIONGAP 13 GLC 158* BUN 9 CR 0.70 GFRESTIMATED >90Non GFR Calc GFRESTBLACK >90African [place]adian GFR Calc WENDIE 8.4* Recent Labs Lab 10/14/14 0718 DD <0.3 Recent Labs Lab 10/14/14 1205 10/14/14 0751 10/14/14 0718 TROPONIN -- 0.00 -- TROPI <0.015The 99th percentile for upper reference range is 0.045 ug/L. Troponin values in the range of 0.045 - 0.120 ug/L may be associated with risks of adverse clinical events. -- <0.015The 99th percentile for upper reference range is 0.045 ug/L. Troponin values in the range of 0.045 - 0.120ug/L may be associated with risks of adverse clinical events. Recent Labs Lab 10/14/14 0850 COLOR Straw APPEARANCE Clear URINEGLC Negative URINEBILI Negative URINEKETONE Negative SG 1.004 UBLD Negative URINEPH 5.0 PROTEIN Negative NITRITE Negative LEUKEST Negative RBCU <1 WBCU 1 Results for orders placed or performed during the hospital encounter of 10/14/14 XR Chest Port 1 View Narrative PORTABLE CHEST ONE VIEW 10/14/2014 7:51 AM HISTORY: Chest pain. Impression IMPRESSION: PA and lateral views of the chest. Lungs are clear. Heart is normal in size. No effusions are evident. No pneumothorax. MD Mikala SOu PA-C Associated attestation - Daryn Lepe MD - 10/15/2014 9:38 AM CDT Physician Attestation I, Daryn Lepe, saw and evaluated Jenny Jeronimo as part of a shared visit. I have reviewed anddiscussed with the advanced practice provider their history, physical and plan. I personally reviewed the vital signs, medications, labs and imaging. My lopez history or physical exam findings: chest pain, atypical Lopez management decisions made by me: rule out [place] and stress test Daryn Lepe Date of Service (when I saw the patient): 10/14/14 documented in this encounter ED Notes Marge Johnson RN - 10/14/2014 8:54 AM CDT director technical at bedside. Mitali Sargent MD - 10/14/2014 7:26 AM CDT History Chief Complaint: Palpitations HPI Jenny Jeronimo is a 29 year old male, otherwise healthy, who presents to the emergency department forevaluation of a sudden onset episode of palpitations and chest pressure with associated dizziness, general weakness, and photophobia. He denies any chest pain but complains of pressure. The patient reports that he was at rest in his home when he began to experience the above symptoms though does note that he did consume an energy drink last night at 5 pm. He also notes that he had trouble sleeping last night. The patient denies any recreational drug use. He reports shortness of breath, mild abdominal pain and dysuria. He also denies experiencing any fevers, chills, diaphoresis, leg swelling, headache, facial asymmetry, speech difficulty, visual change, one-sided weakness, nausea, vomiting, or diarrhea. The patient voices no other concerns at this time. Cardiac/PE/DVT Risk Factors: The patient has no history of hypertension, hyperlipidemia, or diabetes, The patient is a current pack/day smoker. The patient denies any personal or familial history of PE, DVT, or clotting disorder. The patient reports no recent travel, surgery, or other immobilizations. Allergies: No known drug allergies. Medications: The patient denies taking any medications, currently. Past Medical History: The patient denies any relevant past medical history. Past Surgical History: The patient denies any relevant past surgical history. Family History: The patient denies any relevant family medical history. Social History: The patient is single. The patient is a current pack/day smoker. Review of Systems Constitutional: Negative for fever, chills and diaphoresis. Eyes: Negative for visual disturbance. Respiratory: Negative for chest tightness and shortness of breath. Positive for chest pressure Cardiovascular: Positive for palpitations. Negative for chest pain and leg swelling. Gastrointestinal: Negative for nausea, vomiting, abdominal pain and diarrhea. Neurological: Positive for dizziness and weakness (Positive for general weakness, Negative for one-sided weakness). Negative for facial asymmetry, speech difficulty, numbness and headaches. All other systems reviewed and are negative. Physical Exam First Vitals: BP: 142/80 mmHg Pulse: 119 Temp: 98.1 ??F (36.7 ??C) Resp: 18 SpO2: 100 % Physical Exam Physical Exam Constitutional: The patient is oriented to person, place, and time. Alert and cooperative. HENT: Right Ear: External ear normal. Left Ear: External ear normal. Nose: Nose normal. Mouth/Throat: Uvula is midline, oropharynx is clear and moist and mucous membranes are normal. No posterior oropharyngeal edema or erythema. Eyes: Conjunctivae, EOM and lids are normal. Pupils are equal, round, and reactive to light. Neck: Trachea normal. Normal range of motion. Neck supple. Cardiovascular: Tachycardic. Regular rhythm, normal heart sounds, and intact distal pulses. Pulmonary/Chest: Effort normal and breath sounds equal bilaterally. No crackles or wheezing. Abdominal: Soft. Bowel sounds are normal. Mild general abdominal tenderness. No rebound and no guarding. Musculoskeletal: Normal range of motion. No extremity tenderness or edema. No CVA tenderness. Lymphadenopathy: No cervical adenopathy. Neurological: Alert and oriented. Normal strength. No cranial nerve deficit or sensory deficit. Skin: Skin is dry. No rash noted. Psychiatric: Normal mood and affect. Emergency Department Course ECG 1: Indication: Tachycardia. ST elevation V1+V2. Otherwise normal ECG. Completed at 7:17. Read at 7:18. Rate 117 bpm. OR interval 170. QRS duration 106. QT/QTc 316/440. P-R-T axes 49 66 29. Agree with computer interpretation. ECG 2: Indication: Tachycardia. ST elevation V1+V2. Otherwise normal ECG. Completed at 7:43. Read at 7:45. Rate 117 bpm. OR interval 168. QRS duration 104. QT/QTc 318/443. P-R-T axes 45 59 28. Agree with computer interpretation. No change from previous. ECG 3: Indication: Tachycardia. Otherwise normal ECG. Completed at 8:31. Read at 8:33. Rate 101 bpm. OR interval 172. QRS duration 108. QT/QTc 340/440. P-R-T axes 38 50 28. Agree with computer interpretation. Imaging: Radiographic findings were communicated with the patient who voiced understanding of the findings. Chest XR: As per radiology report: PA and lateral views of the chest. Lungs are clear. Heart is normal in size. No effusions are evident. No pneumothorax. Laboratory: Alcohol Level: <0.01 CBC: WBC: 8.9, PLT: 347, HGB: 15.4 WNL BMP: Potassium: 3.3 low, Glucose: 158 high, Calcium: 8.4 low o/w WNL; Creatinine: 0.70 WNL Troponin 8:11: 0.00 Troponin: <0.015 D Dimer: <0.3 Drug Screen 77 (urine): Negative All. UA: Negative All. Interventions: 9:22 - Optison 3 mL IV 8:09 - KLOR-CON 20 mEq IV 7:41 - Ativan 0.5 mg IV 7:35 - Aspirin 324 mg PO 7:34 - NS 0.9% Bolus 1,000 mL IV 7:33 - Nitrostat 0.4 mg PO Emergency Department Course: Nursing notes and vitals reviewed. I performed an exam of the patient as documented above. IV inserted and blood drawn. The patient was placed on continuous cardiac monitoring and pulse oximetry. The patient provided a urine sample here in the emergency department. This was sent for laboratory testing, findings above. The patient was sent for a chest x-ray while here in the emergency department. 7:55 - I consulted with Dr. Sagastume of Cardiology, with regards to the patient's current condition and plan for further care. 8:06 - I rechecked the patient and communicated my reccommended plan for further care based on Dr. Sagastume's recommendations. Upon re-check, the patient also communicates concerns of a burning sensationwith urination. 10:05 - I rechecked the patient and discussed plan for admission. 10:07 - I consulted with MIKEL Shresthau of the hospitalist services, with regards to the patient's current condition and plan for further care. Findings and plan explained to the Patient who consents to admission. Discussed the patient with PA Kohli, who will admit the patient to an observation bed for further monitoring, evaluation, and treatment. Impression & Plan Medical Decision Making: Jenny Jeronimo is a 29 year old male who one hour prior to arrival started having palpitations, chestpressure, and shortness of breath. Symptoms did improve over time in the emergency department with interventions. However, he did have some ECG findings which showed some ST elevations in V1 and V2 that was 2 mm. However, he never had any changes with repeat ECGs. There was also no reciprocal changes.I did discuss the case with Dr. Sagastume, and he did review ECGs. We felt that this was less likely coronary ischemia. Cardiac echo was reccommended and done which showed no well-motion abnormality. However, he did have some mild hypertrophy present. The patient's symptoms improved, and laboratory evaluation was initially negative. Potassium was slightly low, so he was given replacement. Dr. Sagastume didrecommend admission for cardiac rule out and stress test due to his symptoms. The patient denied anydrug or alcohol use or increased use of energy drinks, recently though he did have one energy drink last evening at 5:00pm. The cause of the tachycardia may be related to dehydration or stimulant use. Tachycardia has improved and there is no evidence of infection.The patient will be admitted to the observation unit. Diagnosis: (427.89) Sinus tachycardia (786.50) Chest pain I Hortencia Shyam Rubio am serving as a scribe at 7:26 AM on 10/14/2014 to document services personally performed by Mitali Harper MD, based on my observations and the provider's statementsto me. Hortencia Rubio 10/14/2014 [facility] Mitali Sargent MD 10/14/14 1155 Marge Johnson RN - 10/14/2014 7:17 AM CDT Patient arrived to ER with heart palpitations, denies chest pain. Patient feels dizzy and weak andsensitive to light. documented in this encounter Miscellaneous Notes Plan of Care - Brianda Urban RN - 10/15/2014 8:41 AM CDT Problem: Discharge Planning Goal: Discharge Planning (Adult, OB, Behavioral, Peds) Outcome: Improving Problem: Individualization Goal: 1. Patient Specific Preference PRIMARY DIAGNOSIS: Palpitations OUTPATIENT/OBSERVATION GOALS TO BE MET BEFORE DISCHARGE: 1.Negative Serial Troponin Yes X3 2. Resolution of chest pain Yes 3. Negative stress test. Pending results 4. Stable vital signs Yes Nurse to notify provider when observation goals have been met and patient is ready for discharge. Plan of Care - Sasha So RN - 10/15/2014 4:14 AM CDT Problem: Individualization Goal: 1. Patient Specific Preference PRIMARY DIAGNOSIS: Palpitations OUTPATIENT/OBSERVATION GOALS TO BE MET BEFORE DISCHARGE: 1.Negative Serial Troponin Yes 2. Resolution of chest pain Yes 3. Negative stress test No, scheduled for AM 4. Stable vital signs Yes Nurse to notify provider when observation goals have been met and patient is ready for discharge. Plan of [place] - Sasha So RN - 10/14/2014 10:42 PM CDT Problem: Individualization Goal: 1. Patient Specific Preference PRIMARY DIAGNOSIS: Palpitations OUTPATIENT/OBSERVATION GOALS TO BE MET BEFORE DISCHARGE: 1.Negative Serial Troponin Yes 2. Resolution of chest pain Yes, denies pain, dizziness or SOB at this time, still has some fatigue 3. Negative stress test No, scheduled for AM 4. Stable vital signs Yes Nurse to notify provider when observation goals have been met and patient is ready for discharge. Plan of Annia Park RN - 10/14/2014 8:52 PM CDT Problem: Discharge Planning Goal: Discharge Planning (Adult, OB, Behavioral, Peds) PRIMARY DIAGNOSIS: Palpitations, chest pressure OUTPATIENT/OBSERVATION GOALS TO BE MET BEFORE DISCHARGE: 1.Negative Serial Troponin Yes, negative x 2 2. Resolution of chest pain Yes, denies chest pressure and palpitations. HR 80-90s 3. Negative stress test Will have exercise stress 10/15 4. Stable vital signs Yes Nurse to notify provider when observation goals have been met and patient is ready for discharge. Plan of Annia Park RN - 10/14/2014 4:45 PM CDT Problem: Discharge Planning Goal: Discharge Planning (Adult, OB, Behavioral, Peds) PRIMARY DIAGNOSIS: Palpitations OUTPATIENT/OBSERVATION GOALS TO BE MET BEFORE DISCHARGE: 1.Negative Serial Troponin Yes. Negative x 2 2. Resolution of cardiac symptoms Denies palpitations. Complains of mild fatigue and dizziness. 3. Negative stress test Will have exercise stress test 10/15 4. Stable vital signs Yes Nurse to notify provider when observation goals have been met and patient is ready for discharge. Plan of Care - Brianda Urban RN - 10/14/2014 1:21 PM CDT Problem: Goal Outcome Summary Goal: Goal Outcome Summary Outcome: No Change PRIMARY DIAGNOSIS: CHEST PAIN OUTPATIENT/OBSERVATION GOALS TO BE MET BEFORE DISCHARGE: 1.Negative Serial Troponin Yes X2 2. Resolution of chest pain Yes 3. Negative stress test N/A pending, scheduled for 10/15 4. Stable vital signs Yes Nurse to notify provider when observation goals have been met and patient is ready for discharge. Pharmacy-Admission Medication History - Andres Lucero RPH - 10/14/2014 10:13 AM CDT Admission medication history interview status for this patient is complete. See [facility] admission navigator for allergy information, prior to admission medications and immunization status. Medication history interview source(s):Patient Medication history resources (including written lists, pill bottles, clinic record):None Primary pharmacy: [facility] Dorita Rya/[place], [place] Changes made to DIRECTOR OF PERSONNEL medication list: Added: none Deleted: none Changed: none Actions taken by pharmacist (provider contacted, etc):None Additional medication history information: - Pt denies use of any prescription or OTC medications that include inhalers, topical preparations, supplements, and herbal products. Medication reconciliation/reorder completed by provider prior to medication history? No Prior to Admission medications Not on File documented in this encounter Plan of Treatment Upcoming Encounters Date Type Specialty Care Team Description 06/16/2022 Virtual Visit Endocrinology Gilberto Weathers MD [address] [place], [place] [address] Ky Marcos MD [address] [place] [address] documented as of this encounter Procedures Procedure Name Priority Date/Time Associated Diagnosis Comme nts ECHO STRESS WITH Routine 10/15/2014 7:28 AM Resul ts for this OPTISON CDT procedure are i n the results section. POTASSIUM Routine 10/15/2014 5:20 AM Sinus tachycardia Resu lts for this CDT procedure are i n the results section. MAGNESIUM Routine 10/15/2014 5:20 AM Sinus tachycardia Resu lts for this CDT procedure are i n the results section. LIPID PROFILE Routine 10/15/2014 5:20 AM Sinus tachycardia Res ults for this CDT procedure are i n the results section. POTASSIUM Timed 10/14/2014 6:46 PM Sinus tachycardia Resu lts for this CDT procedure are i n the results section. TSH WITH FREE T4 Routine 10/14/2014 3:16 PM Sinus tachycardia Results for this REFLEX CDT procedure are i n the results section. TROPONIN I Timed 10/14/2014 3:16 PM Sinus tachycardia Resu lts for this CDT procedure are i n the results section. TROPONIN I Timed 10/14/2014 12:05 Sinus tachycardia Result s for this PM CDT procedure are i n the results section. MAGNESIUM Routine 10/14/2014 12:05 Sinus tachycardia Result s for this PM CDT procedure are i n the results section. ECHO COMPLETE WITH STAT 10/14/2014 9:21 AM Res ults for this OPTISON CDT procedure are i n the results section. ROUTINE UA WITH STAT 10/14/2014 8:50 AM Result s for this MICROSCOPIC CDT procedure are i n the results section. DRUG ABUSE SCREEN 77 STAT 10/14/2014 8:50 AM R esults for this URINE (FL, RH, SH) CDT procedure are in the results section. EKG 12-LEAD, TRACING STAT 10/14/2014 8:31 AM R esults for this ONLY CDT procedure are i n the results section. XR CHEST PORT 1 VIEW STAT 10/14/2014 7:51 AM R esults for this CDT procedure are i n the results section. TROPONIN POCT Routine 10/14/2014 7:51 AM Results for this CDT procedure are i n the results section. EKG 12-LEAD, TRACING STAT 10/14/2014 7:43 AM R esults for this ONLY CDT procedure are i n the results section. CBC WITH PLATELETS & STAT 10/14/2014 7:18 AM R esults for this DIFFERENTIAL CDT procedure are i n the results section. TROPONIN I STAT 10/14/2014 7:18 AM Results f or this CDT procedure are i n the results section. D DIMER QUANTITATIVE STAT 10/14/2014 7:18 AM R esults for this CDT procedure are i n the results section. ETHYL ALCOHOL LEVEL STAT 10/14/2014 7:18 AM Re sults for this CDT procedure are i n the results section. BASIC METABOLIC PANEL STAT 10/14/2014 7:18 AM Results for this CDT procedure are i n the results section. EKG 12-LEAD, TRACING STAT 10/14/2014 7:17 AM R esults for this ONLY CDT procedure are i n the results section. documented in this encounter Results ECHO STRESS WITH OPTISON (10/15/2014 7:28 AM CDT) Anatomical Region Laterality Modality Echocardiography Specimen (Source) Anatomical Collection Method Collection Time Re ceived Time Location / / Volume Laterality 10/15/2014 6:57 AM CDT Narrative 10/15/2014 8:50 AM CDT Interpretation Summary [facility] Echocardiography Laboratory [address] [place] [id number] Name: JENNY JERONIMO : 1985 Study Date: 10/15/2014 06:57 AM Age: 29 yrs Gender: Male Patient Location: [facility] Reason For Study: Chest Pain History: Chest Pain,Tachycardia. Ordering Physician: MIKALA KOHLI Referring Physician: JOSE ARMANDO PMD Performed By: Blessing Eden RDCS BSA: 0.56 m2 Height: 10 in Weight: 245 lb HR: 99 BP: 120/70 mmHg Medications: None Procedure Stress Echo Complete. Contrast Optison. Interpretation Summary This was a normal stress echocardiogram. The study was technically difficult. Optison contrast was used without appare nt complications. There is no comparison study available. Stress The patient exercised 6 minutes 46 secon ds. RPP 73257. The patient exhibited no chest pain duri ng exercise. Exercise was stopped due to dyspnea. A treadmill exercise test according to t he Marquis protocol was performed. A moderately-high workload was achieved. Target Heart Rate was achieved. No arrhythmia noted. There was no new ST segment depression. This was a normal stress echocardiogram. Left ventricular cavity size decreases w ith exercise. Global LV systolic function augments wit h exercise. Normal resting wall motion and no stress -induced wall motion abnormality. Baseline The patient is in normal sinus rhythm. Normal baseline electrocardiogram. The resting phase of the study was sandee l. No regional wall motion abnormalities no mejia. Stress Results ?Protocol: ?? Marquis ?Maximum Predicted HR: ??190 bpm ?Target HR: 162 bpm ?% Maximum Predicted HR: ??89 % ?+---------+-------- + +------+---------+ ?: ??Stage ??:Durati on:Heart Rate: ??BPCom ?ment : ?: ? : (mm :ss): ?? (bpm) ??: ?: ? : ?+---------+-------- + +------+---------+ ?: Stage 1 : ??3:00 13 ?3 ?? :130/70: ? : ?+---------+-------- + +------+---------+ ?: Stage 2 : ??3:00 15 ?7 ?? :180/70: ? : ?+---------+-------- + +------+---------+ ?: Stage 3 : ??0:46 16 ?9 ?? : ?? / RPP ?? 42117: ?+---------+-------- + +------+---------+ ?:Recovery : ??6:00 93 ?:140/70: ? : ?+---------+-------- + +------+---------+ ? Stress Duration: ??6:46 mm:ss * ?Recovery Time: 6:00 mm:ss ?Maximum Stress HR: ?? 169 bpm * M ?ETS: ?7 MMode/2D Measurements & Calculations Doppler Measurements & Calculations Report approved by: Alli Stone 10/15/2014 08:50 AM Procedure Note Humberto Sagastume MD - 10/15/2014F ormatting of this note might be different from the original. Interpretation Summary [facility] Echocardiography Laboratory [address] [place] [id number] Name: JENNY JERONIMO : 1985 Study Date: 10/15/2014 06:57 AM Age: 29 yrs Gender: Male Patient Location: [facility] Reason For Study: Chest Pain History: Chest Pain,Tachycardia. Ordering Physician: MIKALA KOHLI Referring Physician: JOSE ARMANDO PMD Performed By: Blessing Eden RDCS BSA: 0.56 m2 Height: 10 in Weight: 245 lb HR: 99 BP: 120/70 mmHg Medications: None Procedure Stress Echo Complete. Contrast Optison. Interpretation Summary This was a normal stress echocardiogram. The study was technically difficult. Optison contrast was used without appare nt complications. There is no comparison study available. Stress The patient exercised 6 minutes 46 secon ds. RPP 98684. The patient exhibited no chest pain duri ng exercise. Exercise was stopped due to dyspnea. A treadmill exercise test according to mj maynard Marquis protocol was performed. A moderately-high workload was achieved. Target Heart Rate was achieved. No arrhythmia noted. There was no new ST segment depression. This was a normal stress echocardiogram. Left ventricular cavity size decreases w ith exercise. Global LV systolic function augments wit h exercise. Normal resting wall motion and no stress -induced wall motion abnormality. Baseline The patient is in normal sinus rhythm. Normal baseline electrocardiogram. The resting phase of the study was sandee l. No regional wall motion abnormalities no mejia. Stress Results Protocol: Marquis Maximum Predicted HR: 1 90 bpm Target HR: 162 bpm % Maximum Predicted HR: 89 % +---------+--------+ +------+- --------+ : Stage :Duration:Heart Rate: BPCom men t : : : (mm:ss): (bpm) : : : +---------+--------+ +------+- --------+ : Stage 1 : 3:00 13 3 :130/70: : +---------+--------+ +------+- --------+ : Stage 2 : 3:00 15 7 :180/70: : +---------+--------+ +------+- --------+ : Stage 3 : 0:46 16 9 : / P 50025: +---------+--------+ +------+- --------+ :Recovery : 6:00 93 :140/70: : +---------+--------+ +------+- --------+ Stress Duration: 6:46 mm:ss * Recovery Time: 6:00 mm:ss Maximum Stress HR: 169 bpm *M ETS: 7 MMode/2D Measurements & Calculations Doppler Measurements & Calculations Report approved by: Alli Stone 10/15/2014 08:50 AM Mikala Kohli PA-C CV ECHO ORDERABLES Magnesium (10/15/2014 5:20 AM CDT) athologist Signature Magnesium 2.1 1.6 - 2.3 [facility] mg/dL HOSPITAL Specimen Anatomical Collection Method Collection Time Receive d Time (Source) Location / / Volume Laterality 10/15/2014 5:20 AM 5 5:39 CDT AM CDT Mikala Shresthau PA-C LAB - BLOOD ORDERABLES Performing Organization Address City/State/ZIP Code Phon e Prasad [facility] [address], [place] [address] [facility] [address] [place], [place] [address], [facility] [phone] Potassium (10/15/2014 5:20 AM CDT) athologist Signature Potassium 3.9 3.4 - 5.3 [facility] mmol/L HOSPITAL Specimen Anatomical Collection Method Collection Time Receive d Time (Source) Location / / Volume Laterality 10/15/2014 5:20 AM 5 5:39 CDT AM CDT Mikala Paez Kohli PA-C LAB - BLOOD ORDERABLES Performing Organization Address City/[facility]/ZIP Code Phon silke Parham [facility] [address], [place] [address] [place] [address] [address] [place], [place] [address], [facility] [phone] (ABNORMAL) Lipid Profile (10/15/2014 5:20 AM CDT) athologist Signature Cholesterol 165 <200 mg/dL [facility] Comment: LDL Cholesterol is the primary guide to therapy. The NCEP recommends further evaluation of: patients with cholesterol greater than 200 mg/dL if additional risk facto rs are present, cholesterol greater than 240 mg/dL, triglycerides greater than 1 50 mg/dL, or HDL less than 40 mg/dL. Triglycerides 175 (H) 0 - 150 mg/dL [facility] HDL Cholesterol 34 (L) >40 mg/dL [facility] LDL Cholesterol Calculated 96 0 - 129 mg/dL [facility] Comment: LDL Cholesterol is the primary guide to therapy: LDL-cholesterol goal in high risk patients is <100 mg/dL and in very high risk patients is <70 mg/dL. VLDL-Cholesterol 35 (H) 0 - 30 mg/dL [facility] Cholesterol/HDL Ratio 4.9 0.0 - 5.0 [facility] Specimen Anatomical Collection Method Collection Time Receive d Time (Source) Location / / Volume Laterality Blood specimen 10/15/2014 5:20 AM 015 5:39 (specimen) CDT AM CDT Mikala Shresthau PA-C LAB - BLOOD ORDERABLES Performing Organization Address City/State/ZIP Code Phon e Number M [facility] [address], [place] [address] [facility] [address] [place], [place] [address], [facility] [phone] Potassium (10/14/2014 6:46 PM CDT) athologist Signature Potassium 3.7 3.4 - 5.3 [facility] mmol/L [facility] Specimen Anatomical Collection Method Collection Time Receive d Time (Source) Location / / Volume Laterality Blood specimen 10/14/2014 6:46 PM 015 7:07 (specimen) CDT PM CDT Mikala Ray Kohli PA-C LAB - BLOOD ORDERABLES Performing Organization Address City/[facility]/ZIP Code Phon e Number [facility] [address], [place] [address] [facility] [address] [place], [place] [address], [facility] [phone] TSH with free T4 reflex (10/14/2014 3:16 PM CDT) athologist Signature TSH 1.24 0.40 - 4.00 [facility] mU/L [facility] Specimen Anatomical Collection Method Collection Time Receive d Time (Source) Location / / Volume Laterality 10/14/2014 3:16 PM 5 3:25 CDT PM CDT Mikala Philippe Kohli PA-C LAB - BLOOD ORDERABLES Performing Organization Address City/State/ZIP Code Phon e Number M [facility] [address], [place] [address] [facility] [address] [place], [place] [address], [facility] [phone] Troponin I - Now then in 4 hours x 2 (10/14/2014 3:16 PM CDT) [facility] Method Time Signature Troponin I ES <0.015 0.000 - [place] The 99th percentile for uppe r reference range is 0.045 ug/L. ??Troponin values in 0.045 [place] the range of 0.045 - 0.120 ug/L may be associated wit h risks of adverse ug/L HOSPITAL clinical events. Specimen Anatomical Collection Method Collection Time Receive d Time (Source) Location / / Volume Laterality Blood specimen 10/14/2014 3:16 PM 015 3:25 (specimen) CDT PM CDT Mikala Kohli PA-C LAB - BLOOD ORDERABLES Performing Organization Address [facility] Phon e Number M [facility] [address], [place] [address] [facility] [address] [place], [place] [address], [facility] [phone] Magnesium (10/14/2014 12:05 PM CDT) athologist Signature Magnesium 2.0 1.6 - 2.3 [facility] mg/dL [facility] Specimen Anatomical Collection Method Collection Time Receive d Time (Source) Location / / Volume Laterality 10/14/2014 12:05 10/14/2014 PM CDT 12:17 PM CDT Mikala Kohli PA-C LAB - BLOOD ORDERABLES Performing Organization Address City/[facility] Phon e Number M [facility] [address], [place] [address] [facility] [address] [place], [place] [address], [facility] [phone] Troponin I - Now then in 4 hours x 2 (10/14/2014 12:05 PM CDT) [facility] Method Time Signature Troponin I ES <0.015 0.000 [facility] The 99th percentile for uppe r reference range is 0.045 ug/L. ??Troponin values in 0.045 [facility] the range of 0.045 - 0.120 ug/L may be associated wit h risks of adverse ug/L HOSPITAL clinical events. Specimen Anatomical Collection Method Collection Time Receive d Time (Source) Location / / Volume Laterality Blood specimen 10/14/2014 12:05 5 (specimen) PM CDT 12:17 PM CDT Mikala Kohli PA-C LAB - BLOOD ORDERABLES Performing Organization Address City/State/ZIP Code Phon e Number M [address] [phone] ECHO COMPLETE WITH OPTISON (10/14/2014 9:21 AM CDT) Anatomical Region Laterality Modality Echocardiography Specimen (Source) Anatomical Collection Method Collection Time Re ceived Time Location / / Volume Laterality 10/14/2014 8:51 AM CDT Narrative 10/14/2014 10:12 AM CDT Interpretation Summary [facility] Echocardiography Laboratory [address] [place] [address] Name: JENNY JERONIMO : 1985 Study Date: 10/14/2014 08:51 AM Age: 29 yrs Gender: Male Patient Location: [facility] Reason For Study: Chest Pain Ordering Physician: MITALI SARGENT Referring Physician: MITALI SARGENT Performed By: Arielle Hartmann BSA: 2.3 m2 Height: 69 in Weight: 248 lb HR: 93 BP: 121/108 mmHg Procedure Complete Portable Echo Adult. Contrast O ptison. Interpretation Summary The left ventricle is normal in size. There is mild concentric left ventricula r hypertrophy. The visual ejection fraction is estimate d at 60-65%. The transmitral spectral Doppler flow pa ttern is suggestive of pseudonormalization. No regional wall motion abnormalities no mejia. The right ventricle is normal in structu re, function and size. Normal left atrial size. Right atrial size is normal. The mitral valve is normal in structure and function. The aortic valve is normal in structure and function. The rhythm was normal sinus. The study was technically adequate. Opti son contrast was used without apparent complications. There is no comp arison study available. Hypertension present. Left Ventricle The left ventricle is normal in size. Th ere is mild concentric left ventricular hypertrophy. The visual ejec tion fraction is estimated at 60-65%. Left ventricular systolic function is no rmal. The transmitral spectral Doppler flow pattern is suggestive of ps eudonormalization. No regional wall motion abnormalities noted. There is no thrombus seen in the left ventricle. Right Ventricle The right ventricle is normal in structu re, function and size. There is normal right ventricular wall thickness. Atria Normal left atrial size. Right atrial si ze is normal. Intact atrial septum. Mitral Valve The mitral valve is normal in structure and function. There is no evidence of mitral valve prolapse. There is no juwan l regurgitation noted. Tricuspid Valve The tricuspid valve is normal in structu re and function. There is trace tricuspid regurgitation. Right ventricul ar systolic pressure could not be approximated due to inadequate tricuspid regurgitation. Aortic Valve The aortic valve is normal in structure and function. Normal tricuspid aortic valve. No aortic regurgitation is presen t. Pulmonic Valve The pulmonic valve is normal in structur e and function. There is no pulmonic valvular regurgitation. Vessels The aortic root is normal size. Normal s ize ascending aorta. The inferior vena cava is not dilated. Pulmonary citlalli jaren not well visualized. Pericardium The pericardium appears normal. There is no pericardial effusion. Rhythm The rhythm was normal sinus. MMode/2D Measurements & Calculations RVDd: 2.4 cm IVSd: 1.4 cm IVSs: 1.6 cm LVIDd: 3.8 cm LVIDs: 2.4 cm LVPWd: 1.3 cm LVPWs: 1.9 cm FS: 37.0 % EDV(Teich): 63.6 ml ESV(Teich): 20.6 ml LV mass(C)d: 188.3 grams Ao root diam: 2.4 cm LA dimension: 3.5 cm LA/Ao: 1.5 LVOT diam: 2.2 cm LVOT area: 3.8 cm2 Doppler Measurements & Calculations MV E max arpan: 83.4 cm/sec MV A max arpan: 72.6 cm/sec MV E/A: 1.1 MV dec time: 0.15 sec Report approved by: Alli Stone 10/14/2014 10:12 AM Procedure Note Humberto Sagastume MD - 10/14/2014F ormatting of this note might be different from the original. Interpretation Summary [facility] Echocardiography Laboratory [address] [place] [address] Name: JENNY JERONIMO : 1985 Study Date: 10/14/2014 08:51 AM Age: 29 yrs Gender: Male Patient Location: [facility] Reason For Study: Chest Pain Ordering Physician: MITALI SARGENT Referring Physician: MITALI SARGENT VASHTI Performed By: Arielle Hartmann BSA: 2.3 m2 Height: 69 in Weight: 248 lb HR: 93 BP: 121/108 mmHg Procedure Complete Portable Echo Adult. Contrast O ptison. Interpretation Summary The left ventricle is normal in size. There is mild concentric left ventricula r hypertrophy. The visual ejection fraction is estimate d at 60-65%. The transmitral spectral Doppler flow pa ttern is suggestive of pseudonormalization. No regional wall motion abnormalities no mejia. The right ventricle is normal in structu re, function and size. Normal left atrial size. Right atrial size is normal. The mitral valve is normal in structure and function. The aortic valve is normal in structure and function. The rhythm was normal sinus. The study was technically adequate. Opti son contrast was used without apparent complications. There is no comp arison study available. Hypertension present. Left Ventricle The left ventricle is normal in size. Th ere is mild concentric left ventricular hypertrophy. The visual ejec tion fraction is estimated at 60-65%. Left ventricular systolic function is no rmal. The transmitral spectral Doppler flow pattern is suggestive of ps eudonormalization. No regional wall motion abnormalities noted. There is no thrombus seen in the left ventricle. Right Ventricle The right ventricle is normal in structu re, function and size. There is normal right ventricular wall thickness. Atria Normal left atrial size. Right atrial si ze is normal. Intact atrial septum. Mitral Valve The mitral valve is normal in structure and function. There is no evidence of mitral valve prolapse. There is no juwan l regurgitation noted. Tricuspid Valve The tricuspid valve is normal in structu re and function. There is trace tricuspid regurgitation. Right ventricul ar systolic pressure could not be approximated due to inadequate tricuspid regurgitation. Aortic Valve The aortic valve is normal in structure and function. Normal tricuspid aortic valve. No aortic regurgitation is presen t. Pulmonic Valve The pulmonic valve is normal in structur e and function. There is no pulmonic valvular regurgitation. Vessels The aortic root is normal size. Normal s ize ascending aorta. The inferior vena cava is not dilated. Pulmonary citlalli jaren not well visualized. Pericardium The pericardium appears normal. There is no pericardial effusion. Rhythm The rhythm was normal sinus. MMode/2D Measurements & Calculations RVDd: 2.4 cm IVSd: 1.4 cm IVSs: 1.6 cm LVIDd: 3.8 cm LVIDs: 2.4 cm LVPWd: 1.3 cm LVPWs: 1.9 cm FS: 37.0 % EDV(Teich): 63.6 ml ESV(Teich): 20.6 ml LV mass(C)d: 188.3 grams Ao root diam: 2.4 cm LA dimension: 3.5 cm LA/Ao: 1.5 LVOT diam: 2.2 cm LVOT area: 3.8 cm2 Doppler Measurements & Calculations MV E max arpan: 83.4 cm/sec MV A max arpan: 72.6 cm/sec MV E/A: 1.1 MV dec time: 0.15 sec Report approved by: Alli Stone 10/14/2014 10:12 AM Mitali Sargent MD CV ECHO ORDERABLES UA with Microscopic (10/14/2014 8:50 AM CDT) Patholo gist Method Time Signature Color Urine Straw [facility] Appearance Urine Clear [facility] Glucose Urine Negative NEG mg/dL [facility] Bilirubin Urine Negative NEG [facility] Ketones Urine Negative NEG mg/dL [facility] Specific Reading 1.004 1.003 - [place] Urine 1.035 [facility] Blood Urine Negative NEG [facility] pH Urine 5.0 5.0 - 7.0 [place] pH [facility] Protein Albumin Negative NEG mg/dL [facility] Urobilinogen Normal 0.0 - 2.0 [place] mg/dL mg/dL [facility] Nitrite Urine Negative NEG [facility] Leukocyte Negative NEG [place] Esterase Urine [facility] Source Midstream [place] Urine [facility] WBC Urine 1 0 - 2 [place] /HPF [facility] RBC Urine <1 0 - 2 [place] /[facility] Squamous <1 0 - 1 [place] Epithelial /HPF /HPF [facility] Specimen Anatomical Collection Method Collection Time Receive d Time (Source) Location / / Volume Laterality Urine specimen [facility] 10/14/2014 8:50 AM 0 10/14/2014 8:55 (specimen) / Unknown CDT AM CDT Mitali Sargent MD LAB - URINE ORDERABLES Performing Organization Address City/State/ZIP Code Phon e Number M [facility] [address], [place] [address] [facility] [address] [place], [place] [address] [place] [address] Drug abuse screen 77 urine (10/14/2014 8:50 AM CDT) Component Value Ref Test Analysis Performed Pathologis t Range Method Time At Signature Amphetamine Qual Negative NEG [place] Urine Cutoff for a negative amphetamine is 500 ng/mL or less. [facility] Barbiturates Qual Negative NEG [facility] Urine Cutoff for a negative barbiturate is 200 ng/mL or less. [facility] Benzodiazepine Negative NEG [facility] [facility] Cutoff for a negative benzodiazepine is 200 ng/mL or less . [facility] Cannabinoids Qual Negative NEG [place] Urine Cutoff for a negative cannabinoid is 50 ng/mL or less. [facility] Cocaine Qual Negative NEG [place] Urine Cutoff for a negative cocaine is 300 ng/mL or less. [facility] Opiates Negative NEG [facility] Qualitative Urine Cutoff for a negative opiate is 300 ng/mL or less. [facility] PCP Qual Urine Negative NEG [place] Cutoff for a negative PCP is 25 ng/mL or less. [facility] Specimen Anatomical Collection Method Collection Time Receive d Time (Source) Location / / Volume Laterality Urine specimen ABSCESS MORPHOLOGY 10/14/2014 8:50 AM 0 10/14/2014 8:55 (specimen) / Unknown CDT AM CDT Mitali Sargent MD LAB - URINE ORDERABLES Performing Organization Address City/State/ZIP [facility] [place] Ph[place] [address] [address] [facility] [address] [phone] EKG 12-lead, tracing only (10/14/2014 8:31 AM CDT) [facility] gist Method Time Signature Interpretation ECG Click View RADIOLOGY Image link RESULTS to view waveform and result Specimen (Source) Anatomical Collection Method Collection Time Re ceived Time Location / / Volume Laterality 10/14/2014 8:31 AM CDT Mitali Sargent MD ECG ORDERABLES Performing Organization Address City/State/ZIP [facility] [place] Phon e Number RADIOLOGY RESULTS XR Chest Port 1 View (10/14/2014 7:51 AM CDT) Anatomical Region Laterality Modality Chest Computed Radiography Specimen (Source) Anatomical Location Collection Method / Collectio n Time Received Time / Laterality Volume Impressions 10/14/2014 10:20 AM CDT IMPRESSION: PA and lateral views of the chest. Lungs are clear. Heart is normal in size. No effusions are evid ent. No pneumothorax. ROBERT ORTIZ MD Narrative 10/14/2014 10:20 AM CDT PORTABLE CHEST ONE VIEW 10/14/2014 7:51 AM HISTORY: Chest pain. Procedure Note Robert Ortiz MD - 10/14/2014Form atting of this note might be different from the original. PORTABLE CHEST ONE VIEW 10/14/2014 7:51 A M HISTORY: Chest pain. IMPRESSION IMPRESSION: PA and lateral views of the chest. Lungs are clear. Heart is normal in size. No effusions are evid ent. No pneumothorax. ROBERT ORTIZ MD Mitali Sargent MD IMG DIAGNOSTIC IMAGING ORDER URIAH Troponin POCT (10/14/2014 7:51 AM CDT) P athologist Signature Troponin I 0.00 0.00 - 0.10 POINT OF CARE ug/L TEST, HANDHELD METER Specimen Anatomical Collection Method Collection Time Receive d Time (Source) Location / / Volume Laterality 10/14/2014 7:51 AM 5 8:10 CDT AM CDT Mitali Sargent MD LAB - ENTER/EDIT POCT Performing Organization Address City/State/ZIP Code Phon e Number [facility] POINT OF CARE TEST, HANDHELD METER POINT OF CARE TEST, HANDHELD METER EKG 12-lead, tracing only (10/14/2014 7:43 AM CDT) [facility] Method Time Signature Interpretation ECG Click View RADIOLOGY Image link RESULTS to view waveform and result Specimen (Source) Anatomical Collection Method Collection Time Re ceived Time Location / / Volume Laterality 10/14/2014 7:43 AM CDT Mitali Sargent MD ECG ORDERABLES Performing Organization Address City/State/ZIP Code Phon e Number RADIOLOGY RESULTS Alcohol level blood (10/14/2014 7:18 AM CDT) athologist Signature Ethanol g/dL <0.01 <0.01 g/dL [facility] Specimen Anatomical Collection Method Collection Time Receive d Time (Source) Location / / Volume Laterality Blood specimen 10/14/2014 7:18 AM 015 7:43 (specimen) CDT AM CDT Mitali Sargent MD LAB - BLOOD ORDERABLES Performing Organization Address City/State/ZIP Code Phon e Number [facility] [address], [place] [address] [facility] [address] [place], [place] [address], [facility] [phone] D dimer quantitative (10/14/2014 7:18 AM CDT) athologist Signature D Dimer <0.3 0.0 - 0.50 [facility] ug/ml [facility] Specimen Anatomical Collection Method Collection Time Receive d Time (Source) Location / / Volume Laterality Blood specimen 10/14/2014 7:18 AM 015 7:43 (specimen) CDT AM CDT Mitali Sargent MD LAB - BLOOD ORDERABLES Performing Organization Address City/[facility] Code Phon e Number Wes [facility] [address], [place] [address] [place] [address] [address] [place], [place] [address], [facility] [phone] Troponin I (10/14/2014 7:18 AM CDT) [facility] Method Time Signature Troponin I ES <0.015 0.000 - [place] The 99th percentile for uppe r reference range is 0.045 ug/L. ??Troponin values in 0.045 RIDG[place] the range of 0.045 - 0.120 ug/L may be associated wit h risks of adverse ug/L HOSPITAL clinical events. Specimen Anatomical Collection Method Collection Time Receive d Time (Source) Location / / Volume Laterality Blood specimen 10/14/2014 7:18 AM 015 7:43 (specimen) CDT AM CDT Mitali Sargent MD LAB - BLOOD ORDERABLES Performing Organization Address City/[facility]/ZIP Code Phon e Number M [facility] [address] [place], [place] [address] [facility] [address] [place], [place] [address], [facility] [phone] (ABNORMAL) Basic metabolic panel (10/14/2014 7:18 AM CDT) [facility] Method Time Signature Sodium 137 133 - 144 [place] mmol/L [facility] Potassium 3.3 (L) 3.4 - 5.3 [place] mmol/L [facility] Chloride 102 94 - 109 [place] mmol/L [facility] Carbon Dioxide 22 20 - 32 [place] mmol/L [facility] Anion Gap 13 3 - 14 [place] mmol/L [facility] Glucose 158 (H) 70 - 99 [place] mg/dL [facility] Urea Nitrogen 9 7 - 30 [place] mg/dL [facility] Creatinine 0.70 0.66 - [place] 1.25 [facility] mg/dL [facility] GFR Estimate >90 >60 [place] Non GFR Calc mL/min/1. [facility] 7m2 HOSPITAL GFR Estimate >90 >60 [place] If Black GFR Calc mL/min/1. R[place]G [place] 7m2 [facility] Calcium 8.4 (L) 8.5 - [place] 10.1 [facility] mg/dL HOSPITAL Specimen Anatomical Collection Method Collection Time Receive d Time (Source) Location / / Volume Laterality Blood specimen 10/14/2014 7:18 AM 015 7:43 (specimen) CDT AM CDT Mitali Sargent MD LAB - BLOOD ORDERABLES Performing Organization Address City/State/ZIP Code Phon e Number [place] [address] [address] [facility] [address] [phone] CBC with platelets differential (10/14/2014 7:18 AM CDT) [facility] Method Time Signature WBC 8.9 4.0 - [facility] 11.0 [facility] 10e9/L [facility] RBC Count 4.86 4.4 - 5.9 [place] 10e12/L [facility] Hemoglobin 15.4 13.3 - [place] 17.7 g/dL [facility] Hematocrit 44.8 40.0 - [place] 53.0 % [facility] MCV 92 78 - 100 [facility] MCH 31.7 26.5 - [facility] 33.0 pg [facility] MCHC 34.4 31.5 - [place] 36.5 g/dL [facility] RDW 14.1 10.0 - [place] 15.0 % [facility] Platelet Count 347 150 - 450 [place] 10e9/[facility] Diff Method Automated [facility] % Neutrophils 49.9 % [facility] % Lymphocytes 39.5 % [facility] % Monocytes 8.0 % [facility] % Eosinophils 2.1 % [facility] % Basophils 0.2 % [facility] % Immature 0.3 % [place] Granulocytes [facility] Absolute 4.4 1.6 - 8.3 [place] Neutrophil 10e9/L [facility] Absolute 3.5 0.8 - 5.3 [place] Lymphocytes 10e9/L [facility] Absolute 0.7 0.0 - 1.3 [place] Monocytes 10e9/L [facility] Absolute 0.2 0.0 - 0.7 [place] Eosinophils [address] Absolute 0.0 0.0 - 0.2 [place] Basophils [address] [place] [address] Abs Immature 0.0 0 - 0.4 [place] Granulocytes [address] [place] [address] Specimen Anatomical Collection Method Collection Time Receive d Time (Source) Location / / Volume Laterality Blood specimen 10/14/2014 7:18 AM 015 7:43 (specimen) CDT AM CDT Mitali Sargent MD LAB - BLOOD ORDERABLES Performing Organization Address City/State/ZIP Code Phon e Number [place] [address] [address] [facility] [address] [phone] EKG 12 lead (10/14/2014 7:17 AM CDT) [facility] gist Method Time Signature Interpretation ECG Click View RADIOLOGY Image link RESULTS to view waveform and result Specimen (Source) Anatomical Collection Method Collection Time Re ceived Time Location / / Volume Laterality 10/14/2014 7:17 AM CDT Mitali Sargent MD ECG ORDERABLES Performing Organization Address City/State/ZIP [facility] [place] Phon e Number RADIOLOGY RESULTS documented in this encounter Visit Diagnoses Diagnosis Sinus tachycardia Other specified cardiac dysrhythmias Chest pain Chest pain, unspecified Sinus tachycardia Other specified cardiac dysrhythmias documented in this encounter Admitting Diagnoses Diagnosis Sinus tachycardia Other specified cardiac dysrhythmias documented in this encounter Administered Medications Inactive Administered Medications - up to 3 most recent administrations Medication Order MAR Action Action Date Dose Rate Site 0.9% sodium chloride BOLUS New Bag 10/14/2014 7:42 AM CDT 1,000 mLs 1000 mL/hr Intravenous, 1,000 mL, ONCE, at 1,000 mL/hr, Administer over 1 Hours, On Wed10/14/14 at 0735, For 1 dose 0.9% sodium chloride infusion New Bag 10/14/2014 8:54 AM CDT 1,000 mLs 125 mL/hr at 125 mL/hr, Intravenous, CONTINUOUS, Administer after the bolus., Starting on Wed10/14/14 at 0735, Until Wed10/14/14 at 1152 aspirin chewable tablet 324 mg Given 10/14/2014 7:42 AM CDT 324 mg 324 mg, Oral, ONCE, On Wed10/14/14 at 0735, For 1 dose, Hold if patient allergy to aspirin, or if aspirin has been given during this episode. aspirin EC tablet 81 mg Given 10/15/2014 8:36 AM CDT 81 mg 81 mg, Oral, DAILY, First dose on Wed10/15/14 at 0800, DO NOT CRUSH. LORazepam (ATIVAN) injection 0.5 mg Given 10/14/2014 7:42 AM CDT 0.5 mg 0.5 mg, Intravenous, ONCE, On Wed10/14/14 at 0741, For 1 dose nitroglycerin (NITROSTAT) SL tablet 0.4 mg Given 10/14/2014 7:42 AM CDT 0.4 mg 0.4 mg, Sublingual, ONCE PRN, chest pain, Starting on Wed10/14/14 at 0733, For 1 dose, (Hold NitroGLYCERIN if sildenafil (VIAGRA/REVATIO) or avanafil (STENDRA) has been taken within 8 hours; vardenafil (LEVITRA/STAXYN)has been taken within 18 hours;tadalafil (CIALIS/ADCIRCA) has been taken within 36 hours). perflutren diluted 1mL to 1mL with saline Given 10/14/2014 9:22 AM CDT 3 mLs (OPTISON) diluted injection 3 mL 3 mL, Intravenous, ONCE, On Wed10/14/14 at 0922, For 1 dose perflutren diluted 1mL to 2mL with saline Given 10/15/2014 7:28 AM CDT 6 mLs (OPTISON) diluted injection 6 mL 6 mL, Intravenous, ONCE, On Wed10/15/14 at 0726, For 1 dose potassium chloride (KLOR-CON) packet 20 mEq Given 10/14/2014 8:27 AM CDT 20 mEq 20 mEq, Oral, ONCE, On Wed10/14/14 at 0809, For 1 dose, Dissolve packet contents in 4-8 ounces of cold water or juice. potassium chloride SA (K-DUR,KLOR-CON M) CR Given 10/15/2014 8:36 AM CDT 20 mEq tablet 20-40 mEq 20-40 mEq, Oral, EVERY 2 HOURS PRN, potassium supplementation, Potassium Supplementation, Starting on Wed10/14/14 at 1318, Use if able to take PO. Recheck K+ level 2 hrs after replacement dose if given for level less than 3.4, next AM (and QMWF if ordered). Repeat protocol if necessary. If Serum K+ 3.4-4.0, dose = 20 mEq x1. If Serum K+ 3.0-3.3, dose = 60 mEq po total dose (40 mEq x1 followed in 2 hours by 20 mEq x1). If Serum K+ 2.5-2.9, dose = 80 mEq po total dose (40 mEq Q2H x2). If Serum K+ less than 2.5, See IV order. Do not Crush. Given 10/15/2014 12:24 AM CDT 20 mEq Given 10/14/2014 2:32 PM CDT 40 mEq sodium chloride (PF) 0.9% PF flush 10 mL Given 10/15/2014 7:28 AM CDT 10 mLs 10 mL, Intravenous, ONCE, On Wed10/15/14 at 0726, For 1 dose sodium chloride (PF) 0.9% PF flush 3 mL Given 10/15/2014 8:39 AM CDT 3 mLs 3 mL, Intracatheter, EVERY 8 HOURS, First dose on Wed10/14/14 at 1153, And Q1H PRN, to lock peripheral IV dormant line. Given 10/15/2014 12:25 AM CDT 3 mLs Given 10/14/2014 8:52 PM CDT 3 mLs documented in this encounter Active and Recently Administered Medications Times are shown in CDT. Scheduled Medication Order 10/13/2014 10/14/2014 10/15/2014 0.9% sodium chloride BOLUS (COMPLETED) 0 742 (New Bag - Provider: Marge Johnson RN)0854 (Stopped - Provider: Marge Johnson RN) Intravenous, 1,000 mL, ONCE, at 1,000 mL /hr, for 1 Hours, 10/14/14 at 0735, For 1 dose aspirin chewable tablet 324 mg (COMPLETED) 741 (Given - Provider: Marge Johnson RN) 324 mg, Oral, ONCE, 10/14/14 at 0735, For 1 dose, Hold if patient allergy to aspirin, or if aspirin has been given during this episode. aspirin EC tablet 81 mg (CANCELED) 835 (Given - Provider: Brianda Urban RN) 81 mg, Oral, DAILY, First dose on 10/15/14 at 0800, DO NOT CR US. LORazepam (ATIVAN) injection 0.5 mg (COMPLETED) 741 (Given - Provider: Marge Johnson RN) 0.5 mg, Intravenous, ONCE, 10/14/14 at 0741, For 1 dose perflutren diluted 1mL to 1mL with salin e (OPTISON) diluted injection 3 mL (COMPLETED) 921 (Given - Provider: Arielle Hartmann) 3 mL, Intravenous, ONCE, 10/14/14 at 0922, For 1 dose perflutren diluted 1mL to 2mL with salin e (OPTISON) diluted injection 6 mL (COMPLETED) 727 (Given - Provid er: Blessing Eden - Comment: 3cc's wasted) 6 mL, Intravenous, ONCE, 10/15/14 at 0726, For 1 dose potassium chloride (KLOR-CON) packet 20 mEq (COMPLETED) 826 (Given - Provider: Marge Johnson, ZAHRA) 20 mEq, Oral, ONCE, 10/14/14 at 0809, For 1 dose, Dissolve packet contents in 4-8 ounces of cold water or juice. sodium chloride (PF) 0.9% PF flush 10 mL (COMPLETED) 727 (Given - Provider: Blessing Eden) 10 mL, Intravenous, ONCE, 10/15/14 at 0726, For 1 dose sodium chloride (PF) 0.9% PF flush 3 mL (CANCELED) 1153 (Canceled Entry - Provider: Annia Silva, RN)2052 (Given - Provider: Annia Silva, RN) 0025 (Given - Provider: Sasha So V, RN)0839 (Given - Provider: Brianda Urban, RN) 3 mL, Intracatheter, EVERY 8 HOURS, Firs t dose on 10/14/14 at 1153, And Q1H PRN, to lock peripheral IV dormant line. Continuous Medication Order 10/13/2014 10/14/2014 10/15/2014 0.9% sodium chloride infusion (CANCELED) 0735 (Canceled Entry - Provider: Annia Silva RN)0854 (New Bag - Provider: Marge Johnson, RN)1109 (ED Infusing on Admission/transfer - Provider: Kristina Monsivais) at 125 mL/hr, Intravenous, CONTINUOUS, A dminister after the bolus., Starting [place] 10/14/14 at 0735, Until 10/14/14 at 1152 PRN Medication Order 10/13/2014 10/14/2014 10/15/2014 nitroglycerin (NITROSTAT) SL tablet 0.4 mg (COMPLETED) 07 (Given - Provider: Marge Johnson, RN) 0.4 mg, Sublingual, ONCE PRN, chest pain , Starting [place] 10/14/14 at 0733, For 1 dose, (Hold NitroGLYCERIN if sildenafil (VIAGRA/REVATIO) or avanafil (STENDRA) has been taken within 8 hours; vardenafil (LE VITRA/STAXYN)has been taken within 18 ho urs;tadalafil (CIALIS/ADCIRCA) has been taken within 36 hours). potassium chloride SA (K-DUR,KLOR-CON M) CR tablet 20-40 mEq (CANCELED) 1432 (Given - Provider: Brianda Urban, ZAHRA) 0024 (Given - Provider: Sasha So V, RN)0836 (Given - Provider: Brianda Urban, RN) 20-40 mEq, Oral, EVERY 2 HOURS PRN, Star ting [place] 10/14/14 at 1318, potassium supplementation, Potassium Supplementation, Use if able to take PO. Recheck K+ level 2 hrs after replacement dose if given for level less than 3.4, next AM (and QMWF if ordered). Repeat protocol if necessary. If Serum K+ 3.4-4.0, dose = 20 mEq x1. If Serum K+ 3.0-3.3, dose = 60 mEq po total dose (40 mEq x1 followed in 2 hours by 20 mEq x1). If Serum K+ 2.5-2.9, dose = 80 mEq po total dose (40 mEq Q2H x2). If Serum K+ less than 2.5, See IV order. Do not Crush. documented in this encounter Care Teams Rn Transition Relationship Specialty Start Date End Date No Ref-Primary, Physician PCP - General 09/24/14 1 06/01/14 documented as of this encounter
--- OUTSIDE RECORDS SUMMARY | 2022-03-05 03:59 | XMS_ITS | Encounter Summary ---
:1985 Author Organization [place] Address [address] [place] [address] Care Team Providers Name Role Phone No Ref-Primary, Physician Primary Care Provider Unavailable Reason for Visit Reason Comments Chest Pain Auth/Cert - Closed Specialty Diagnoses / Procedures Referred By Contact Refer red To Contact Med Surg Diagnoses Diabetes mellitus (H) Chest pain Observation Dept [address] [place], [place] [address] Phone: Referral ID Status Reason Start Date Expiration Date Visits Requ ested Visits Authorized Closed 02/01/2015 02/01/2016 Encounter Details Date Type Department Care Team Description 01/31/2015 - Emergency [facility] Everardo Perea APRN CNP [facility] [address] [place] [address] Diabetes mellitus (H); 02/01/2015 [facility] Bakari Moran MD [facility] [address] [place] [address] Palpitations; Dept Uri Block MD [address] [place], [place] [id number] Chest pain [address] [place] [address] Social History Tobacco Use Types [...] Sign Reading Time Taken Comments Blood Pressure 122/66 02/01/2015 6:58 AM CDT Pulse 114 01/31/2015 12:39 PM CDT Temperature 36 ??C (96.8 ??F) 02/01/2015 6:58 AM CDT Respiratory Rate 20 02/01/2015 6:58 AM CDT Oxygen Saturation 98% 02/01/2015 6:58 AM CDT Inhaled Oxygen Concentration - - Weight 108.2 kg (238 lb 8 oz) 01/31/2015 5:54 PM CDT Height 180.3 cm (5' 11) 01/31/2015 5:54 PM CDT Body Mass Index 33.26 01/31/2015 5:54 PM CDT documented in this encounter Discharge Summaries Wanda Duran PA-C - 02/01/2015 9:38 AM CDT [facility] Outpatient / Observation Unit Discharge Summary Ana Mcgowan Date of : 1985 Age: [age] year old Date of Admission: 01/31/2015 Date of Discharge: 02/01/2015 Admitting Physician: Uri Block MD Discharge Physician: Wanda Duran PA-C Discharging Service: Hospitalist Primary Provider: No Ref-Primary, Physician (General) Primary Care Physician Phone Number: None Primary Discharge Diagnoses: Ana Mcgowan was admitted on 01/31/2015 for concerns of acute chest pain. 1. Chest pain: Ruled out ACS. -Suspect musculoskeletal 2. Hyperglycemia - glucose 272 in ED, improved to 106 after 2L NS only. HgbA1c 6.5. He is borderlinediabetic but his HgbA1c is within goal so likely does not need any medication at this time. He also had a CT with contrast in ED so would be unable to start Metformin at this time. He needs to establish care with PCP and would likely benefit from a fasting glucose test and a glucose challenge. Pendingresults, discuss whether medication is indicated. He would benefit from meeting with a diabetes nurse educator as an outpatient to discuss lifestyle changes, specifically diet and exercise, to help improve his glucose control. He did state he drinks 3 sodas per day on average, recommended that he start tapering this down over the next 1-3 weeks. Secondary Discharge Diagnoses: History reviewed. No pertinent past medical history. Tobacco use Code Status: Full Code Brief Hospital Summary: Reason for your hospital stay Chest pain and high blood glucose Please refer to initial admission history and physical for further details. Briefly, Ana Mcgowan was admitted on 01/31/2015 for concerns of acute chest pain. Initial work up in the ED did not reveal evidence of STEMI or findings consistent with unstable angina or acute coronary ischemia. Pt was registered to the Observation Unit for further evaluation. Pt ruled out with serial troponins. Labs were reviewed and significant results addressed. On the dayof discharge, pt was pain free, with no complaints of pain. Medications were reviewed and adjustments made as necessary. Pt is instructed to follow up as below. Significant Lab During Hospitalization: Recent Labs Lab 01/31/15 1300 WBC 9.8 HGB 14.8 HCT 42.6 MCV 92 PLT 324 Recent Labs Lab 02/01/15 0520 01/31/15 2310 01/31/15 1300 NA -- -- 137 POTASSIUM -- 3.9 3.2* CHLORIDE -- -- 103 CO2 -- -- 23 ANIONGAP -- -- 11 GLC 111* -- 272* BUN -- -- 7 CR -- -- 0.77 GFRESTIMATED -- -- >90Non GFR Calc GFRESTBLACK -- -- >90African Maldivian GFR Calc WENDIE -- -- 8.2* PROTTOTAL 6.1* -- -- ALBUMIN 3.0* -- -- BILITOTAL 0.3 -- -- ALKPHOS 94 -- -- AST 14 -- -- ALT 28 -- -- Recent Labs Lab 01/31/15 1300 DD <0.3 Recent Labs Lab 02/01/15 0520 02/01/15 0155 01/31/15 2310 TROPI <0.015The 99th percentile for upper reference range is 0.045 ug/L. Troponin values in the range of 0.045 - 0.120 ug/L may be associated with risks of adverse clinical events. <0.015The 99thpercentile for upper reference range is 0.045 ug/L. Troponin values in the range of 0.045 - 0.120 ug/L may be associated with risks of adverse clinical events. <0.015The 99th percentile for upper reference range is 0.045 ug/L. Troponin values in the range of 0.045 - 0.120 ug/L may be associated with risks of adverse clinical events. Significant Imaging During Hospitalization: Recent Results (from the past 48 hour(s)) XR Chest 2 Views Narrative XR CHEST 2 VW 01/31/2015 1:34 PM HISTORY: Chest pain. COMPARISON: 10/14/14 Impression IMPRESSION: Negative. MADISON LAMAR MD CT Chest Pulmonary Embolism w Contrast Narrative CT CHEST PULMONARY EMBOLISM WITH CONTRAST01/31/2015 4:54 PM HISTORY: Chest pain, evaluate PE. COMPARISON: None TECHNIQUE: Pulmonary embolism protocol with attention to the pulmonary arteries. IV contrast: 69 mL Isovue-370. Coronal reconstructions. FINDINGS: No thoracic aortic dissection. No pulmonary embolism identified. There is a small right fissural nodule on image 58. These have a very high correlation with being benign. Impression IMPRESSION: No PE identified. Pending Results: Unresulted Labs Ordered in the Past 30 Days of this Admission Date and Time Order Name Status Description 02/01/2015 0001 Hemoglobin A1c In process Consultations This Hospital Stay: No consultations were requested during this admission Discharge Instructions and Follow-Up: Follow-up Appointments Follow-up and recommended labs and tests Follow up with primary care provider, No Ref-Primary, Physician (General) within 7 days for hospital follow- up. The following labs/tests are recommended: fasting glucose checks. Discharge Disposition: Discharged to home Discharge Medications: Current Discharge Medication List CONTINUE these medications which have NOT CHANGED Details Acetaminophen (TYLENOL PO) Take by mouth as needed for mild pain or fever IBUPROFEN PO Take by mouth as needed for moderate pain cetirizine (ZYRTEC) 10 MG tablet Take 10 mg by mouth daily Allergies: No Known Allergies Condition and Physical on Discharge: Discharge condition: Stable Vitals: Blood pressure 122/66, pulse 114, temperature 96.8 ??F (36 ??C), temperature source Oral, resp. rate 20, height 1.803 m (5' 11), weight 108.183 kg (238 lb 8 oz), SpO2 98 %. 238 lbs 8 oz GENERAL: Comfortable. PSYCH: pleasant, oriented, No acute distress. HEENT: Normal conjunctiva, normal hearing, nasal mucosa and Oropharynx are normal. NECK: Supple HEART: RRR LUNGS: Normal Respiratory effort. NEUROLOGIC: Grossly intact Wanda Duran PA-C Associated attestation - Nabor Armenta MD - 02/01/2015 1:19 PM CDT Physician Attestation I, Nabor Armenta MD, have reviewed and discussed with the advanced practice provider their discharge plan for Ana Mcgowan. I did not participate in a shared visit by interviewing or examining the patient and this should be billed as an advanced practice provider only discharge. Nabor Armenta MD Date of Service (when I saw the patient): I did not personally see this patient today. documented in this encounter Discharge Instructions Discharge InstructionsGilberto Lopez RN - 02/01/2015 10:56 AM CDT Follow up with PCP on February 04, 2015 @ 1340 (140 pm) at [facility] With Otilia Recinos. documented in this encounter Medications at Time of Discharge Medication Sig Dispensed Refills Start Date End Date Acetaminophen (TYLENOL Take by mouth as 0 06/11/2015 PO) needed for mild pain or fever cetirizine (ZYRTEC) 10 MG Take 10 mg by mouth 0 06/11/2015 tablet daily IBUPROFEN PO Take by mouth as 0 2015 needed for moderate pain documented as of this encounter Progress Notes Sadie Velázquez RN - 02/01/2015 10:57 AM CDT Care Coordination: Consulted to see patient for new PCP set up for diabetes management and education follow up. Pt lives in [facility]. Pt was set up to see Dr Recinos at the [facility] on Wed at 1:40. Per Wanda Duran, pt is borderline diabetic with A1C of 6.5. He does not need set up with glucometer or meds on discharge. He will follow up with new primary to establish plan of care. Sadie Velázquez RN CTS documented in this encounter H&P Notes Uri Block MD - 01/31/2015 8:00 PM CDT [facility] Hospitalist Admission Note Name: Ana Mcgowan Date of : 1985 Age: [age] year old Date of admission: 01/31/2015 Primary care provider: No Ref-Primary, Physician (General) Assessment Ana Mcgowan is a 29 year old [place]er male without a significant past medical history who presents with chest pain which which started about midday while watching TV. #1.Chest pain -Suspect this is non cardiac ,likley muskuloskeletal in nature with tenderness on palpation.Negative stress echo last september #2.Hyperglycemia-suspect DM ,no previous diagnosis #3.Tobacco smoking #4.Hypokalemia Plan >Admit to hospitalist service >Admit to observation and telemetry >Pain management: acetominophen, oral narcotics and IV narcotics >Diet advanced >Advance activity as tolerated >Discussed treatment plan with the patient >prophylaxis against venous thromboembolism >Additional orders: -- serial trop ,tele ,no need to stress test --NSAID --HGBA1C ,SSI ,Diabetes education (See orders placed for this visit by me ) - Home medication reviewed and will be continued as appropriate once pharmacy reconciliation is completed Code Status: Full Code >anticipate discharge to home and Anticipate discharge tomorrow if he rules out for ACS Disclaimer: This note consists of symbols derived from keyboarding, dictation and/or voice recognition software. As a result, there may be errors in the script that have gone undetected. Please consider this when interpreting information found in this chart. Chief Complaint: Chest pain History is obtained from the patient History of Present Illness: This patient is a 29 year old male with a significant past medical history of negative stress test who presents with the following condition requiring a hospital admission: Chest Pain Ana Mcgowan complains of chest pain. Onset was 6 hours ago. Symptoms have improved since that time. The patient's pain is intermittent. The patient describes the pain as sharp and does not radiate. Patient rates pain as a 5/10 in intensity. Associated symptoms are: none. Aggravating factors are: none. Alleviating factors are: none. Patient's cardiac risk factors are: smoking and diabetes mellitus. Patient's risk factors for DVT/PE: none known. Previous cardiac testing: exercise echo last September whichwas negative. Past Medical History: None Past Surgical History: History reviewed. No pertinent past surgical history. Social History: History Substance Use Topics ??? Smoking status: Not on file ??? Smokeless tobacco: Not on file ??? Alcohol Use: Not on file Family History: Reviewed and non contributory Allergies: No Known Allergies Medications: Prior to Admission medications Medication Sig Last Dose Taking? Auth Provider Acetaminophen (TYLENOL PO) Take by mouth as needed for mild pain or fever prn Yes Dummy, Bfp User IBUPROFEN PO Take by mouth as needed for moderate pain prn Yes Dummy, Bfp User cetirizine (ZYRTEC) 10 MG tablet Take 10 mg by mouth daily 01/29/2015 at Unknown time Yes Dummy, Bfp User Review of Systems: A Comprehensive greater than 10 system review of systems was carried out. Pertinent positives and negatives are noted above in HPI. Otherwise negative for contributory information. Physical Exam: Vitals were reviewed Temp: [96.9 ??F (36.1 ??C)-98.8 ??F (37.1 ??C)] 96.9 ??F (36.1 ??C) Pulse: [114] 114 Heart Rate: [69-113] 69 Resp: [18-20] 18 BP: (115-127)/(61-83) 124/83 mmHg SpO2: [96 %-99 %] 98 % Constitutional: awake, alert, cooperative and no apparent distress Eyes: lids and lashes normal, pupils equal, round and reactive to light, sclera clear and conjunctiva normal ENT: normocepalic, without obvious abnormality, atramatic, sinuses nontender on palpation, oral pharynx with moist mucus membranes Neck: supple, symmetrical, trachea midline, skin normal, no stridor, no lymphadenopathy and thyroid not enlarged, symmetric, no tenderness Hematologic / Lymphatic: no cervical lymphadenopathy and no supraclavicular lymphadenopathy Back: symmetric, no curvature and no costal vertebral tenderness Lungs: no increased work of breathing, good air exchange, no retractions and clear to auscultation Cardiovascular: normal apical pulses , normal S1 and S2 Chest wall tenderness Abdomen: normal bowel sounds, soft, non-distended and non-tender Musculoskeletal:Extermities no lower extremity pitting edema present Neurologic: Mental Status Exam: Level of Alertness: awake Cranial Nerves: cranial nerves II-XII are grossly intact Neuropsychiatric: General: normal, calm and normal eye contact Skin: no bruising or bleeding and normal skin color, texture, turgor Data: All laboratory data reviewed All laboratory and imaging data in the past 24 hours reviewed All laboratory data reviewed All laboratory and imaging data in the past 24 hours reviewed Results for orders placed or performed during the hospital encounter of 01/31/15 XR Chest 2 Views Narrative XR CHEST 2 VW 01/31/2015 1:34 PM HISTORY: Chest pain. COMPARISON: 10/14/14 Impression IMPRESSION: Negative. MADISON LAMAR MD CT Chest Pulmonary Embolism w Contrast Narrative CT CHEST PULMONARY EMBOLISM WITH CONTRAST01/31/2015 4:54 PM HISTORY: Chest pain, evaluate PE. COMPARISON: None TECHNIQUE: Pulmonary embolism protocol with attention to the pulmonary arteries. IV contrast: 69 mL Isovue-370. Coronal reconstructions. FINDINGS: No thoracic aortic dissection. No pulmonary embolism identified. There is a small right fissural nodule on image 58. These have a very high correlation with being benign. Impression IMPRESSION: No PE identified. CBC (platelets, no diff) Result Value Ref Range WBC 9.8 4.0 - 11.0 10e9/L RBC Count 4.62 4.4 - 5.9 10e12/L Hemoglobin 14.8 13.3 - 17.7 g/dL Hematocrit 42.6 40.0 - 53.0 % MCV 92 78 - 100 fl MCH 32.0 26.5 - 33.0 pg MCHC 34.7 31.5 - 36.5 g/dL RDW 14.2 10.0 - 15.0 % Platelet Count 324 150 - 450 10e9/L D dimer quantitative Result Value Ref Range D Dimer <0.3 0.0 - 0.50 ug/ml FEU Basic metabolic panel Result Value Ref Range Sodium 137 133 - 144 mmol/L Potassium 3.2 (L) 3.4 - 5.3 mmol/L Chloride 103 94 - 109 mmol/L Carbon Dioxide 23 20 - 32 mmol/L Anion Gap 11 3 - 14 mmol/L Glucose 272 (H) 70 - 99 mg/dL Urea Nitrogen 7 7 - 30 mg/dL Creatinine 0.77 0.66 - 1.25 mg/dL GFR Estimate >90 Non GFR Calc >60 mL/min/1.7m2 GFR Estimate If Black >90 GFR Calc >60 mL/min/1.7m2 Calcium 8.2 (L) 8.5 - 10.1 mg/dL Troponin I Result Value Ref Range Troponin I ES 0.000 - 0.045 ug/L <0.015 The 99th percentile for upper reference range is 0.045 ug/L. Troponin values in the range of 0.045 - 0.120 ug/L may be associated with risks of adverse clinical events. Troponin I Result Value Ref Range Troponin I ES 0.019 0.000 - 0.045 ug/L Glucose by meter Result Value Ref Range Glucose 106 (H) 70 - 99 mg/dL Glucose by meter Result Value Ref Range Glucose 106 (H) 70 - 99 mg/dL EKG 12 lead Result Value Ref Range Interpretation ECG Click View Image link to view waveform and result Recent Results (from the past 48 hour(s)) XR Chest 2 Views Narrative XR CHEST 2 VW 01/31/2015 1:34 PM HISTORY: Chest pain. COMPARISON: 10/14/14 Impression IMPRESSION: Negative. MADISON LAMAR MD CT Chest Pulmonary Embolism w Contrast Narrative CT CHEST PULMONARY EMBOLISM WITH CONTRAST01/31/2015 4:54 PM HISTORY: Chest pain, evaluate PE. COMPARISON: None TECHNIQUE: Pulmonary embolism protocol with attention to the pulmonary arteries. IV contrast: 69 mL Isovue-370. Coronal reconstructions. FINDINGS: No thoracic aortic dissection. No pulmonary embolism identified. There is a small right fissural nodule on image 58. These have a very high correlation with being benign. Impression IMPRESSION: No PE identified. EKG results: Performed today Sinus tachycardia All imaging studies reviewed by me. Patient`s old medical records reviewed and case discussed with the ED physician. ED course-Reviewed documented in this encounter ED Notes Gilberto Lopez RN - 02/01/2015 11:12 AM CDT OBSERVATION patient END time: 1112. Madison Plascencia RN - 02/01/2015 8:00 AM CDT Spoke with child care lead teacher for need to set up a primary care provider for patient with appointment Wednesday and follow with diabetic education Gilberto Lopez RN - 02/01/2015 7:48 AM CDT PRIMARY DIAGNOSIS: CHEST PAIN OUTPATIENT/OBSERVATION GOALS TO BE MET BEFORE DISCHARGE: 1.Negative Serial Troponin Yesx3 2. Resolution of chest pain Yes 3. Negative stress test N/A 4. Stable vital signs Yes Patient denies chest pain. Stable, will keep monitoring.Nurse to notify provider when observation goals have been met and patient is ready for discharge. Jolly Rios RN - 02/01/2015 4:03 AM CDT PRIMARY DIAGNOSIS: CHEST PAIN OUTPATIENT/OBSERVATION GOALS TO BE MET BEFORE DISCHARGE: 1. Negative Serial Troponin: Yes, negative x 3 2. Resolution of chest pain: Yes 3. Negative stress test: N/A 4. Stable vital signs: Yes Nurse to notify provider when observation goals have been met and patient is ready for discharge. Jolly Rios RN - 02/01/2015 12:00 AM CDT PRIMARY DIAGNOSIS: CHEST PAIN OUTPATIENT/OBSERVATION GOALS TO BE MET BEFORE DISCHARGE: 1.Negative Serial Troponin: Yes, negative x 3 2. Resolution of chest pain: Yes 3. Negative stress test: N/A 4. Stable vital signs: Yes Nurse to notify provider when observation goals have been met and patient is ready for discharge. Annia Jenkins RN - 01/31/2015 7:02 PM CDT PRIMARY DIAGNOSIS: CHEST PAIN OUTPATIENT/OBSERVATION GOALS TO BE MET BEFORE DISCHARGE: 1.Negative Serial Troponin Yes, negative x 1 (0.019) 2. Resolution of chest pain Yes 3. Negative stress test N/A 4. Stable vital signs Yes A&O x 4. Up independent. Fluent in Bahamian. Denies CP. However, CP is reproducible with palpation. Denies dizziness, SOB, palpitations. K 3.2. Will replace. BS 106. Will monitor for possible new DMbased on BS in ED. Hgb A1C in will be drawn. Nurse to notify provider when observation goals have been met and patient is ready for discharge. Annia Jenkins RN - 01/31/2015 6:00 PM CDT OBSERVATION patient IN TIME: 1751 Gricelda Carmona RN - 01/31/2015 5:37 PM CDT Observation Brochure and Video Patient informed of observation status based on provider's order. Observation Brochure was given andvideo watched. Gricelda Carmona RN Mesha Toledo RN - 01/31/2015 12:38 PM CDT Chest pain and SOB x 1 hour- patient states feels hear beating fast and dizziness. ABC Intact alert and no distress. Everardo Perea APRN [facility] - 01/31/2015 12:38 PM CDT History Chief Complaint: Chest Pain HPI Ana Mcgowan is a 29 year old male who presents to the emergency department today for evaluation ofchest pain, shortness of breath, dizziness, and palpitations. The patient endorses the above symptoms that started an hour prior to arrival while the patient was watching TV. He states the chest pain is sharp and left sided rated 6/10. He has not taken aspirin or medications for the pain. The patient was seen in the ED 3 months ago with similar symptoms, and he stress test was performed, which was negative. He has not seen a tax agent. Other than smoking cigarettes, the patient denies illegal drug use, other health problems, nausea, vomiting, diarrhea, or loss of appetite. Allergies: No Known Drug Allergies Medications: No daily medications. Past Medical History: Sinus tachycardia Past Surgical History: Surgical history reviewed. No pertinent surgical history. Family History: History reviewed. No pertinent family history. Social History: Marital Status: Single [1] Tobacco: Positive Alcohol: Negative Review of Systems Constitutional: Negative for appetite change. Respiratory: Positive for shortness of breath. Cardiovascular: Positive for chest pain and palpitations. Gastrointestinal: Negative for nausea, vomiting and diarrhea. Neurological: Positive for dizziness. All other systems reviewed and are negative. Physical Exam First Vitals: BP 117/75 mmHg Pulse 114 Temp(Src) 98.8 ??F (37.1 ??C) (Oral) Resp 20 SpO2 96% Physical Exam General: Alert, Moderate discomfort, well kept, Seems mildly anxious. Eyes: PERRL, conjunctivae pink no scleral icterus or conjunctival injection ENT: Moist mucus membranes, posterior oropharynx clear without erythema or exudates, No lymphadenopathy, Normal voice Resp: Lungs clear to auscultation bilaterally, no crackles/rubs/wheezes. Good air movement CV: Normal rate and rhythm, no murmurs/rubs/gallops GI: Abdomen soft and non-distended. Normoactive BS. No tenderness, guarding or rebound, No masses Skin: Warm, dry. No rashes or petechiae Musculoskeletal: No peripheral edema or calf tenderness, Normal gross ROM Neuro: Alert and oriented to person/place/time, normal sensation Psychiatric: mildly anxious, cooperative, good eye contact Emergency Department Course EC01/31/15 Indication: Chest pain Findings: Sinus tachycardia Otherwise normal ECG. Ventricular rate: 117 bpm TX interval: 162 ms QRS duration: 106 ms QT/QTc: 336/468 ms R-Morgan: 54 ECG read at 12:50 by Brit HAMM in conjunction with Dr. Romero. Imaging: Chest X-Ray. 2 Views: Negative. Final reading per radiology. Radiographic findings were communicated with the patient who voiced understanding of the findings. Laboratory: CBC: WNL. (WBC 9.8, HGB 14.8, PLT 324) BMP: Glucose 272 (high), K 3.2 (low), Ca 8.2 (low), o/w WNL. (Creatinine 0.77) Troponin collected at 13:00: <0.015 (WNL). Troponin #2 collected at 15:13: 0.019 D dimer: <0.3 Interventions: 13:11 - Normal saline 1,000mL IV Emergency Department Course: Nursing notes and vitals reviewed. I performed an exam of the patient as documented above. The patient was placed on site monitor and continuous pulse oximetry. EKG was done. The above imaging workup was performed. The above laboratory workup was performed. A peripheral IV was established. The patient received the above interventions. Findings and plan explained to the Patient who consents to admission. Discussed the patient with , who will admit the patient to a telemetry bed for further monitoring, evaluation, and treatment. Impression & Plan Medical Decision Makin29 year old Juan M presented for evaluation of chest pain and palpitations. His initial evaluation showed a negative troponin, and he had a similar episode approximately 4 months ago at which time he had a stress echo which showed no acute findings. However, a delta troponin did show a change. He will therefore be admitted to the telemetry unit. He has a negative D dimer. He does have an elevated glucose today at 273, this is diagnostic for diabetes. He is currently pain free and improved after theabove treatment. He has a negative chest x-ray. He will be admitted to the telemetry floor. Dr. Alexander is accepting. He did request PE study: results pending. Diagnosis: ICD-10-CM ICD-9-CM 1. Diabetes mellitus E11.9 250.00 2. Palpitations R00.2 785.1 3. Chest pain R07.9 786.50 Disposition: Discharged. Plan as outlined above. Scribe Disclosure: I, Zeus Pinto, am serving as a scribe at 12:39 PM on 01/31/2015 to document services personally performed by Everardo Perea APRN*, based on my observations and the provider's statements to me. [facility] EMERGENCY [facility]PART[facility] Everardo Perea APRN CNP 01/31/15 1641 documented in this encounter Miscellaneous Notes Pharmacy-Admission Medication History - Homer Valenzuela [facility] - 01/31/2015 3:59 PM CDT Admission medication history interview status for this patient is complete. See [facility] HOSPITAL admission navigator for allergy information, prior to admission medications and immunization status. Medication history interview source(s):Patient Medication history resources (including written lists, pill bottles, clinic record):None Primary pharmacy:[facility] Changes made to [employer] medication list: Added: zyrtec, tylenol prn, ibuprofen prn Deleted: none Changed: none Actions taken by pharmacist (provider contacted, etc):None Additional medication history information:None Medication reconciliation/reorder completed by provider prior to medication history? No Prior to Admission medications Medication Sig Last Dose Taking? Auth Provider Acetaminophen (TYLENOL PO) Take by mouth as needed for mild pain or fever prn Yes Dummy, Bfp User IBUPROFEN PO Take by mouth as needed for moderate pain prn Yes Dummy, Bfp User cetirizine (ZYRTEC) 10 MG tablet Take 10 mg by mouth daily 01/29/2015 at Unknown time Yes Dummy, Bfp User documented in this encounter Plan of Treatment Upcoming Encounters Date Type Specialty Care Team Description 06/16/2022 Virtual Visit Endocrinology Gilberto Weathers MD [address] [place] [address] Ky Marcos MD [address] [place] [address] documented as of this encounter Procedures Procedure Name Priority Date/Time Associated Comments Diagnosis GLUCOSE BY METER Routine 02/01/2015 7:51 AM Diabetes mellitus Results for this CDT (H) procedure are i n the results section. TROPONIN I Timed 02/01/2015 5:20 AM Diabetes mellitus Resu lts for this CDT (H) procedure are i n the results section. HEPATIC FUNCTION Routine 02/01/2015 5:20 AM Diabetes mellitus Results for this PANEL CDT (H) procedure are i n the results section. HEMOGLOBIN A1C Routine 02/01/2015 5:20 AM Diabetes mellitus Re sults for this CDT (H) procedure are i n the results section. GLUCOSE Routine 02/01/2015 5:20 AM Diabetes mellitus Resu lts for this CDT (H) procedure are i n the results section. TROPONIN I Timed 02/01/2015 1:55 AM Diabetes mellitus Resu lts for this CDT (H) procedure are i n the results section. TROPONIN I Timed 01/31/2015 11:10 Diabetes mellitus Result s for this PM CDT (H) procedure are i n the results section. POTASSIUM Timed 01/31/2015 11:10 Diabetes mellitus Result s for this PM CDT (H) procedure are i n the results section. GLUCOSE BY METER Routine 01/31/2015 10:07 Diabetes mellitus Re sults for this PM CDT (H) procedure are i n the results section. GLUCOSE BY METER Routine 01/31/2015 6:05 PM Diabetes mellitus Results for this CDT (H) procedure are i n the results section. GLUCOSE BY METER Routine 01/31/2015 5:26 PM Diabetes mellitus Results for this CDT (H) procedure are i n the results section. CT CHEST PULMONARY STAT 01/31/2015 4:54 PM Res ults for this EMBOLISM W CONTRAST CDT procedur e are in the results section. TROPONIN I STAT 01/31/2015 3:13 PM Diabetes mellitus Resu lts for this CDT (H) procedure are i n the results section. XR CHEST 2 VIEWS STAT 01/31/2015 1:34 PM Resul ts for this CDT procedure are i n the results section. TROPONIN I STAT 01/31/2015 1:00 PM Results f or this CDT procedure are i n the results section. HEMOGLOBIN A1C Routine 01/31/2015 1:00 PM Diabetes mellitus Re sults for this CDT (H) procedure are i n the results section. D DIMER QUANTITATIVE STAT 01/31/2015 1:00 PM R esults for this CDT procedure are i n the results section. BASIC METABOLIC PANEL STAT 01/31/2015 1:00 PM Results for this CDT procedure are i n the results section. CBC WITH PLATELETS STAT 01/31/2015 1:00 PM Res ults for this CDT procedure are i n the results section. EKG 12-LEAD, TRACING STAT 01/31/2015 12:41 Res ults for this ONLY PM CDT procedure are i n the results section. documented in this encounter Results (ABNORMAL) Glucose by meter (02/01/2015 7:51 AM CDT) P athologist Signature Glucose 123 (H) 70 - 99 POINT OF CARE mg/dL TEST, GLUCOSE Specimen Anatomical Collection Method Collection Time Receive d Time (Source) Location / / Volume Laterality 02/01/2015 7:51 AM 5 7:55 CDT AM CDT Uri Block MD LAB - BEAKER POCT Performing Organization Address City/State/ZIP Code Phon e Number FV POINT OF CARE TEST, GLUCOSE POINT OF CARE TEST, GLUCOSE (ABNORMAL) Hepatic panel (02/01/2015 5:20 AM CDT) Analysis Performed At Patho logist Time Signature Bilirubin Direct <0.1 0.0 - 0.2 [place] mg/dL [facility] Bilirubin Total 0.3 0.2 - 1.3 [place] mg/dL [facility] Albumin 3.0 (L) 3.4 - 5.0 [facility] g/dL [facility] Protein Total 6.1 (L) 6.8 - 8.8 [facility] g/dL [facility] Alkaline 94 40 - 150 [place] Phosphatase U/L [facility] ALT 28 0 - 70 U/L [facility] AST 14 0 - 45 U/L [facility] Specimen Anatomical Collection Method Collection Time Receive d Time (Source) Location / / Volume Laterality 02/01/2015 5:20 AM 5 5:23 CDT AM CDT Uri Block MD LAB - BLOOD ORDERABLES Performing Organization Address City/[facility]/ZIP [facility] Phon e Number [facility] [address], [place] [address] [facility] [address] [place], [place] [address] [address], [facility] [phone] (ABNORMAL) Glucose (02/01/2015 5:20 AM CDT) P athologist Signature Glucose 111 (H) 70 - 99 [place] mg/dL [facility] Specimen Anatomical Collection Method Collection Time Receive d Time (Source) Location / / Volume Laterality Blood specimen 02/01/2015 5:20 AM 015 5:23 (specimen) CDT AM CDT Uri Block MD LAB - BLOOD ORDERABLES Performing Organization Address [facility] Phon e Number [facility] [address] [place] [address], [place] [address] [place] [address] [address] [place], [place] [address] [address], [facility] [phone] Troponin I (STAT q4h x3) (02/01/2015 5:20 AM CDT) Patholo gist Method Time Signature Troponin I ES <0.[address] [place] [address] The 99th percentile for uppe r reference range is 0.045 ug/L. ??Troponin values in 0.045 [facility] the range of 0.045 - 0.120 ug/L may be associated wit h risks of adverse ug/L HOSPITAL clinical events. Specimen Anatomical Collection Method Collection Time Receive d Time (Source) Location / / Volume Laterality Blood specimen 02/01/2015 5:20 AM 015 5:23 (specimen) CDT AM CDT Uri Block MD LAB - BLOOD ORDERABLES Performing Organization Address [facility] Phon e Number [facility] [address] [place], [place] [address] [facility] [address] [place], [place] [address] [address], [facility] [phone] (ABNORMAL) Hemoglobin A1c (02/01/2015 5:20 AM CDT) athologist Signature Hemoglobin A1C 6.6 (H) 4.3 - 6.0 [facility] Specimen Anatomical Collection Method Collection Time Receive d Time (Source) Location / / Volume Laterality Blood specimen 02/01/2015 5:20 AM 015 5:23 (specimen) CDT AM CDT Uri Block MD LAB - BLOOD ORDERABLES Performing Organization Address [facility] [address] [place], [place] [address] [facility] [phone] Troponin I (STAT q4h x3) (02/01/2015 1:55 AM CDT) [facility] gist Method Time Signature Troponin I ES <0.015 .000 [facility] The 99th percentile for uppe r reference range is 0.045 ug/L. ??Troponin values in 0.045 [facility] the range of 0.045 - 0.120 ug/L may be associated wit h risks of adverse ug/L HOSPITAL clinical events. Specimen Anatomical Collection Method Collection Time Receive d Time (Source) Location / / Volume Laterality Blood specimen 02/01/2015 1:55 AM 015 1:58 (specimen) CDT AM CDT Uri Block MD LAB - BLOOD ORDERABLES Performing Organization Address [facility] [address] [place], [place] [address], [facility] [phone] Potassium (01/31/2015 11:10 PM CDT) athologist Signature Potassium 3.9 3.4 - 5.3 [facility] mmol/L HOSPITAL Specimen Anatomical Collection Method Collection Time Receive d Time (Source) Location / / Volume Laterality 01/31/2015 11:10 01/31/2015 PM CDT 11:32 PM CDT Uri Block MD LAB - BLOOD ORDERABLES Performing Organization Address City/[facility]/ZIP Code Phon e Number [facility] [address] [place], [place] [address] [facility] [address], [place] [address], [facility] [phone] Troponin I (STAT q4h x3) (01/31/2015 11:10 PM CDT) [facility] gist Method Time Signature Troponin I ES <0.[address] [place] [address] The 99th percentile for uppe r reference range is 0.045 ug/L. ??Troponin values in 0.045 [place] the range of 0.045 - 0.120 ug/L may be associated wit h risks of adverse ug/L HOSPITAL clinical events. Specimen Anatomical Collection Method Collection Time Receive d Time (Source) Location / / Volume Laterality Blood specimen 01/31/2015 11:10 5 (specimen) PM CDT 11:32 PM CDT Uri Block MD LAB - BLOOD ORDERABLES Performing Organization Address City/[facility]/ZIP Code Phon e Number [facility] [address] [place], [place] [address] [place] [address] [address] [place], [place] [address], [facility] [phone] (ABNORMAL) Glucose by meter (01/31/2015 10:07 PM CDT) P athologist Signature Glucose 151 (H) 70 - 99 POINT OF CARE mg/dL TEST, GLUCOSE Specimen Anatomical Collection Method Collection Time Receive d Time (Source) Location / / Volume Laterality 01/31/2015 10:07 01/31/2015 PM CDT 10:10 PM CDT Uri Block MD LAB - BEAKER POCT Performing Organization Address City/[facility]/ZIP Code Phon e Number FV POINT OF CARE TEST, GLUCOSE POINT OF CARE TEST, GLUCOSE (ABNORMAL) Glucose by meter (01/31/2015 6:05 PM CDT) P athologist Signature Glucose 106 (H) 70 - 99 POINT OF CARE mg/dL TEST, GLUCOSE Specimen Anatomical Collection Method Collection Time Receive d Time (Source) Location / / Volume Laterality 01/31/2015 6:05 PM 5 6:10 CDT PM CDT Uri Block MD LAB - KISHA POCT Performing Organization Address City/State/ZIP Code Phon e Number FV POINT OF CARE TEST, GLUCOSE POINT OF CARE TEST, GLUCOSE (ABNORMAL) Glucose by meter (01/31/2015 5:26 PM CDT) P athologist Signature Glucose 106 (H) 70 - 99 POINT OF CARE mg/dL TEST, GLUCOSE Specimen Anatomical Collection Method Collection Time Receive d Time (Source) Location / / Volume Laterality 01/31/2015 5:26 PM 5 5:30 CDT PM CDT Bakari ZEPEDA - KISHA POCT Performing Organization Address City/State/ZIP Code Phon e Number FV POINT OF CARE TEST, GLUCOSE POINT OF CARE TEST, GLUCOSE CT Chest Pulmonary Embolism w Contrast (01/31/2015 4:54 PM CDT) Anatomical Region Laterality Modality Chest, SUBRAD CT BODY, UMP CT CHEST Comp uted Tomography Specimen (Source) Anatomical Location Collection Method / Collectio n Time Received Time / Laterality Volume Impressions 02/01/2015 12:47 PM CDT IMPRESSION: No PE identified. KRISTIN MICHAEL MD Narrative 02/01/2015 12:[address] CHEST PULMONARY EMBOLISM WITH CONTRAST01/31/2015 4:54 PM HISTORY: Chest pain, evaluate PE. COMPARISON: None TECHNIQUE: Pulmonary embolism protocol w ith attention to the pulmonary arteries. IV contrast: 69 mL Isovue-370. Coronal reconstructions. FINDINGS: No thoracic aortic dissection. No pulmonary embolism identified. There is a small right fissu ral nodule on image 58. These have a very high correlation with being benign. Procedure Note Kristin Michael MD - 02/01/2015Formatting o f this note might be different from the original. CT CHEST PULMONARY EMBOLISM WITH CONTRAS T01/31/2015 4:54 PM HISTORY: Chest pain, evaluate PE. COMPARISON: None TECHNIQUE: Pulmonary embolism protocol w ith attention to the pulmonary arteries. IV contrast: 69 mL Isovue-370. Coronal reconstructions. FINDINGS: No thoracic aortic dissection. No pulmonary embolism identified. There is a small right fissu ral nodule on image 58. These have a very high correlation with being benign. IMPRESSION IMPRESSION: No PE identified. KRISTIN MICHAEL MD Everardo Perea APRN, CNP IMG CT ORDERABLES Troponin I (01/31/2015 3:13 PM CDT) athologist Signature Troponin I ES 0.019 0.000 - [place] 0.045 ug/L [facility] Comment: The 99th percentile for upper reference range is 0.045 ug/L. ??Troponin values in the range of 0.045 - 0.120 ug/L may be associated with risks of adverse clinical events. Specimen Anatomical Collection Method Collection Time Receive d Time (Source) Location / / Volume Laterality Blood specimen 01/31/2015 3:13 PM 015 3:17 (specimen) CDT PM CDT Everardo Perea APRN [facility] LAB - BLOOD ORDERABLES Performing Organization Address City/State/ZIP Code Phon e Number [place] [address] [place] [phone] [place] [address] [address] [place] [phone] XR Chest 2 Views (01/31/2015 1:34 PM CDT) Anatomical Region Laterality Modality Chest Computed Radiography Specimen (Source) Anatomical Location Collection Method / Collectio n Time Received Time / Laterality Volume Impressions 01/31/2015 1:52 PM CDT IMPRESSION: ??Negative. MADISON LAMAR MD Narrative 01/31/2015 1:52 PM CDT XR CHEST 2 VW ??01/31/2015 1:34 PM HISTORY: ??Chest pain. COMPARISON: ??10/14/14 Procedure Note Madison Lamar MD - 5 XR CHEST 2 VW 01/31/2015 1:34 PM HISTORY: Chest pain. COMPARISON: 10/14/14 IMPRESSION IMPRESSION: Negative. MADISON LAMAR MD Everardo Perea APRN, CNP IM DIAGNOSTIC IMAGING ORDE RABDENYS (ABNORMAL) Hemoglobin A1c (01/31/2015 1:00 PM CDT) athologist Signature Hemoglobin A1C 6.5 (H) 4.3 - 6.0 [facility] Specimen Anatomical Collection Method Collection Time Receive d Time (Source) Location / / Volume Laterality 01/31/2015 1:00 PM 5 1:12 CDT PM CDT Everardo Perea APRN, CNP LAB - BLOOD ORDERABLES Performing Organization Address [facility] e Number [facility] [address] [place], [place] [address] [facility] [address] [place], [place] [address] [address], [facility] [phone] Troponin I (01/31/2015 1:00 PM CDT) [facility] Method Time Signature Troponin I ES <0.015 0.000 [facility] The 99th percentile for uppe r reference range is 0.045 ug/L. ??Troponin values in .045 [facility] the range of 0.045 - 0.120 ug/L may be associated wit h risks of adverse ug/L HOSPITAL clinical events. Specimen Anatomical Collection Method Collection Time Receive d Time (Source) Location / / Volume Laterality Blood specimen 01/31/2015 1:00 PM 015 1:12 (specimen) CDT PM CDT Everardo Perea APRN, CNP LAB - BLOOD ORDERABLES Performing Organization Address [facility] e Number [facility] [address] [place], [place] [address] [facility] [address] [place], [place] [address], [facility] [phone] (ABNORMAL) Basic metabolic panel (01/31/2015 1:00 PM CDT) [facility] Signature Sodium 137 133 - 144 [place] mmol/L [facility] Potassium 3.2 (L) 3.4 - 5.3 [place] mmol/L [facility] Chloride 103 94 - 109 [place] mmol/L [facility] Carbon Dioxide 23 20 - 32 [place] mmol/L [facility] Anion Gap 11 3 - 14 [place] mmol/L [facility] Glucose 272 (H) 70 - 99 [place] mg/dL [facility] Urea Nitrogen 7 7 - 30 [place] mg/dL [facility] Creatinine 0.77 0.66 - [place] 1.25 [facility] mg/dL [facility] GFR Estimate >90 >60 [place] Non GFR Calc mL/min/1. [facility] 7m2 [facility] GFR Estimate >90 >60 [place] If Black GFR Calc mL/min/1. [facility] 7m2 [facility] Calcium 8.2 (L) 8.5 - [place] 10.1 [facility] mg/dL [facility] Specimen Anatomical Collection Method Collection Time Receive d Time (Source) Location / / Volume Laterality Blood specimen 01/31/2015 1:00 PM 015 1:12 (specimen) CDT PM CDT Everardo Perea APRN, CNP LAB - BLOOD ORDERABLES Performing Organization Address City/[facility]/ZIP [facility] Phon e Number [facility] [address] [place] [address] [place] [address] [address] [place] [address] [address] [phone] D dimer quantitative (01/31/2015 1:00 PM CDT) athologist [facility] D Dimer <0.3 0.0 - 0.50 [facility] ug/ml [facility] Specimen Anatomical Collection Method Collection Time Receive d Time (Source) Location / / Volume Laterality Blood specimen 01/31/2015 1:00 PM 015 1:12 (specimen) CDT PM CDT Everardo Perea APRN, CNP LAB - BLOOD ORDERABLES Performing Organization Address City/State/ZIP [facility] Phon e Number [facility] [address] [place], [place] [address] [facility] [address] [place] [address] [address] [phone] CBC (platelets, no diff) (01/31/2015 1:00 PM CDT) P athologist Signature WBC 9.8 4.0 - 11.0 [place] 10e9/L [facility] RBC Count 4.62 4.4 - 5.9 [place] 10e12/L [facility] Hemoglobin 14.8 13.3 - [place] 17.7 g/dL [facility] Hematocrit 42.6 40.0 - [place] 53.0 % [facility] MCV 92 78 - 100 [place] fl [facility] MCH 32.0 26.5 - [place] 33.0 pg [facility] MCHC 34.7 31.5 - [place] 36.5 g/dL [facility] RDW 14.2 10.0 - [place] 15.0 % [facility] Platelet Count 324 150 - 450 [place] 10e9/L [facility] Specimen Anatomical Collection Method Collection Time Receive d Time (Source) Location / / Volume Laterality Blood specimen 01/31/2015 1:00 PM 015 1:12 (specimen) CDT PM CDT Everardo Perea APRN [facility] LAB - BLOOD ORDERABLES Performing Organization Address City/[facility]/ZIP [facility] Phon e Number [place] [address] [facility] [address] [phone] EKG 12 lead (01/31/2015 12:41 PM CDT) [facility] gist Method Time Signature Interpretation ECG Click View RADIOLOGY Image link RESULTS to view waveform and result Specimen (Source) Anatomical Collection Method Collection Time Re ceived Time Location / / Volume Laterality 01/31/2015 12:41 PM CDT Sadie Romero MD ECG ORDERABLES Performing Organization Address City/[facility] Phon e Number RADIOLOGY RESULTS documented in this encounter Visit Diagnoses Diagnosis Diabetes mellitus (H) Type II or unspecified type diabetes benny litus without mention of complication, not stated as uncontrolled Palpitations Chest pain Chest pain, unspecified Chest pain Chest pain, unspecified documented in this encounter Administered Medications Inactive Administered Medications - up to 3 most recent administrations Medication Order MAR Action Action Date Dose Rate Site 0.9% sodium chloride BOLUS New Bag 01/31/2015 1:11 PM CDT 1,000 mLs 2000 mL/hr Intravenous, 1,000 mL, ONCE, at 2,000 mL/hr, Administer over 30 Minutes, On Jennifer 01/31/15 at 1248, For 1 dose 0.9% sodium chloride BOLUS New Bag 01/31/2015 4:43 PM CDT 51 mLs Intravenous, 1,000 mL, ONCE, On Jennifer 01/31/15 at 1643, For 1 dose iopamidol (ISOVUE-370) 76% solution 500 mL Given 01/31/2015 4:43 PM CDT 69 mLs 500 mL, Intravenous, ONCE, On Jennifer 01/31/15 at 1643, For 1 dose pantoprazole (PROTONIX) EC tablet 40 mg Given 02/01/2015 6:59 AM CDT 40 mg 40 mg, Oral, 2 TIMES DAILY BEFORE MEALS, First dose on Wed02/01/15 at 0730, DO NOT CRUSH. potassium chloride (KLOR-CON) packet 20-40 Given 01/31/2015 8:56 PM CDT 20 mEq mEq 20-40 mEq, Oral or Feeding Tube, EVERY 2 HOURS PRN, potassium supplementation, Starting on Jennifer 01/31/15 at 1841, Use if unable to tolerate tablets. Recheck K+ level 2 hrs after dose if given for K less than 3.4, the next AM (and QMWF if ordered). Repeat if necessary. If Serum K+ 3.0-3.3, dose = 60 mEq po total dose (40 mEq x1 followed in 2 hours by 20 mEq x1). If Serum K+ 2.5-2.9, dose = 80 mEq po total dose (40 mEq Q2H x2). If Serum K+ less than 2.5, See IV order. Dissolve packet contents in 4-8 ounces of cold water or juice. Given 01/31/2015 7:09 PM CDT 40 mEq documented in this encounter Active and Recently Administered Medications Times are shown in CDT. Scheduled Medication Order 01/30/2015 01/31/2015 02/01/2015 0.9% sodium chloride BOLUS (COMPLETED) 1 311 (New Bag - Provider: Mesha Toledo RN)1404 (Stopped - Provider: Mesha Toledo RN) Intravenous, 1,000 mL, ONCE, at 2,000 mL /hr, for 30 Minutes, Jennifer 01/31/15 at 1248, For 1 dose 0.9% sodium chloride BOLUS (COMPLETED) 1 643 (New Bag - Provider: Sofiya Norman)1649 (Stopped - Provider: Sofiya Norman) Intravenous, 1,000 mL, ONCE, Jennifer 01/31/15 at 1643, For 1 dose iopamidol (ISOVUE-370) 76% solution 500 mL (COMPLETED) 1643 (Given - Provider: Sofiya Norman) 500 mL, Intravenous, ONCE, Jennifer 01/31/15 at 1643, For 1 dose pantoprazole (PROTONIX) EC tablet 40 mg (CANCELED) 0659 (Given - Provider: Stacey Krishna, ZAHRA) 40 mg, Oral, 2 TIMES DAILY BEFORE MEALS, First dose on Wed02/01/15 at 0730, DO NOT CRUSH. PRN Medication Order 01/30/2015 01/31/2015 02/01/2015 potassium chloride (KLOR-CON) packet 20-40 mEq (CANCELED) 1909 (Given - Provider: Annia Jenkins, RN)205 (Given - Provider: Annia Jenkins, RN) 20-40 mEq, Oral or Feeding Tube, EVERY 2 HOURS PRN, Starting Jennifer 01/31/15 at 1841, potassium supplementation, Use if unable to tolerate tablets. Recheck K+ level 2 hrs after dose if given for K less than 3.4, the next AM (and QMWF if ordered). Repeat if necessary. If Serum K+ 3.0- 3.3, dose = 60 mEq po total dose (40 mEq x1 followed in 2 hours by 20 mEq x1). If Serum K+ 2.5-2.9, dose = 80 mEq po total d ose (40 mEq Q2H x2). If Serum K+ less th an 2.5, See IV order. Dissolve packet contents in 4-8 ounces of cold water or juice. documented in this encounter Care Teams Public Policy Analyst Relationship Specialty Start Date End Date No Ref-Primary, Physician PCP - General 09/24/14 1 06/01/14 documented as of this encounter
--- OUTSIDE RECORDS SUMMARY | 2022-03-05 03:59 | XMS_ITS | Encounter Summary ---
:1985 Author Organization [facility] Address [address] [place] [address]. [place] [address] Care Team Providers Name Role Phone No Ref-Primary, Physician Primary Care Provider Unavailable Reason for Visit Reason Comments Sinusitis Runny nose, headache, sore t hroat Encounter Details Date Type Department Care Team Description 09/24/2014 Emergency [facility] Shakira Vasquez ra, MD Viral illness Emergency Department [address] [facility] [address] [place] [address] [place] [id number] [phone] Social History Tobacco Use Types Packs/Day Years [...] Sign Reading Time Taken Comments Blood Pressure 128/58 09/24/2014 4:35 PM CDT Pulse 107 09/24/2014 12:28 PM CDT Temperature 36.7 ??C (98 ??F) 09/24/2014 4:35 PM CDT Respiratory Rate 16 09/24/2014 4:35 PM CDT Oxygen Saturation 98% 09/24/2014 4:35 PM CDT Inhaled Oxygen Concentration - - Weight 111.1 kg (245 lb) 09/24/2014 12:28 PM CDT Height 177.8 cm (5' 10) 09/24/2014 12:28 PM CDT Body Mass Index 35.15 09/24/2014 12:28 PM CDT documented in this encounter Discharge Instructions Discharge InstructionsTara Vasquez MD - 09/24/2014 4:31 PM CDT Images from the original note were not included. Take the meds as prescribed. Viral Syndrome (Adult) A viral illness may cause a number of symptoms. The symptoms depend on the part of the body that thevirus affects. If it settles in the nose, throat, and lungs, it may cause cough, sore throat, congestion, and sometimes headache. If it settles in the stomach and intestinal tract, it may cause vomiting and diarrhea. Sometimes it causes vague symptoms like aching all over, feeling tired, loss of appetite, or fever. A viral illness usually lasts??1 to 2 weeks, but sometimes it lasts longer. In some cases, a more serious infection can look like a viral syndrome in the first few days of the illness. You may need another??exam and additional tests??to know the difference.??Watch for the warning signs listed below. Home care Follow these guidelines for taking care of yourself at home: ?? If symptoms are severe, rest at home for the first 2 to 3 days. ?? Stay away from cigarette smoke - both your smoke and the smoke from others. ?? You may use??acetaminophen or ibuprofen for fever, muscle aching, and headache, unless another medicine was prescribed for this.??If you have chronic liver or kidney disease or ever had a stomach ulcer or GI bleeding, talk with your doctor before using these medicines??No one who is younger than 18and ill with a fever should take aspirin. It may cause severe liver damage. ?? Your appetite may be poor, so a light diet is fine. Avoid dehydration by drinking 8 to 12 8-ounceglasses of fluids each day. This may include water; orange juice; lemonade; apple, grape, and cranberry juice; clear fruit drinks; electrolyte replacement and sports drinks; and decaffeinated teas and coffee. If you have been diagnosed with a kidney disease, ask your doctor how much and what types of fluids you should drink to prevent dehydration. If you have kidney disease, drinking too much fluid can cause it build up in the your body and be dangerous to your health.? Ovrb-bqt-otamwbm remedies won't shorten the length of the illness but may be helpful for??cough, sore throat; and nasal and sinus congestion. Don't use decongestants if you have high blood pressure. Follow-up care Follow up with your health care provider if you do not improve over the next week. When to seek medical advice Call your health care provider right away??if any of these occur: ?? Cough with lots of colored sputum (mucus) or blood in your sputum ?? Chest pain, shortness of breath, wheezing, or difficulty breathing ?? Severe headache; face, neck, or ear pain ?? Severe, constant pain in the lower right side of your belly (abdominal) ?? Continued vomiting (can???t keep liquids down) ?? Frequent diarrhea (more than 5 times a day); blood (red or black color) or mucus in diarrhea ?? Feeling weak, dizzy, or like you are going to faint ?? Extreme thirst ?? Fever of 100.4?? F (38?? C) oral or higher, not better with fever medication ?? Convulsion ?? [id number] [employer]. [address] [place] [address]. All rights reserved. This information is not intended as a substitute for professional medical care. Always follow your healthcare professional's instructions. documented in this encounter Medications at Time of Discharge Medication Sig Dispensed Refills Start Date End Date guaiFENesin-codeine Take 10 mLs by mouth 120 mL 0 201409/25/2014 (ROBITUSSIN AC) 100-10 every 4 hours as MG/5ML SOLN needed for cough ibuprofen (ADVIL,MOTRIN) Take 1 tablet (600 21 tablet 0 08/201409/25/2014 600 MG tablet mg) by mouth every 6 hours as needed for moderate pain oxymetazoline (AFRIN [place] 2 sprays in 1 Bottle 0 09/25/19 15 09/25/2014 NASAL SPRAY) 0.05 % nasal nostril 2 times spray daily for 3 days documented as of this encounter ED Notes Tara Vasquez MD - 09/24/2014 2:38 PM CDT History Chief Complaint Patient presents with ??? Sinusitis Runny nose, headache, sore throat HPI Ana Mcgowan is a 29 year old male who presents with cough, body aches, headache and sore throat. The patient complains of sore throat, rhinorrhea, headache, cough and subjective fever since Wednesday, 5 days ago. He states that he has been taking Claritin daily and this has not been helping. He reports that he a has a history of seasonal allergies, and Claritin generally helps. He did not have a flu shot this year. He reports that he had abdominal pain yesterday, and took a laxative. He denies abdominal pain today. He complains of generalized weakness. He has not taken Tylenol. I have reviewed the Medications, Allergies, Past Medical and Surgical History, and Social History inthe [employer] system. History reviewed. No pertinent past medical history. History reviewed. No pertinent past surgical history. No family history on file. History Substance Use Topics ??? Smoking status: Current Every Day Smoker ??? Smokeless tobacco: Not on file ??? Alcohol Use: No No current facility-administered medications for this encounter. Current Outpatient Prescriptions Medication ??? oxymetazoline (AFRIN NASAL SPRAY) 0.05 % nasal spray ??? ibuprofen (ADVIL,MOTRIN) 600 MG tablet ??? guaiFENesin-codeine (ROBITUSSIN AC) 100-10 MG/5ML SOLN No Known Allergies Review of Systems Constitutional: Positive for fever (subjective). HENT: Positive for rhinorrhea and sore throat. Respiratory: Positive for cough. Gastrointestinal: Negative for abdominal pain. Neurological: Positive for weakness (generalized) and headaches. All other systems reviewed and are negative. Physical Exam BP: 123/66 mmHg Pulse: 107 Temp: 99.4 ??F (37.4 ??C) Resp: 16 Height: 177.8 cm (5' 10) Weight: 111.131 kg (245 lb) SpO2: 97 % Physical Exam Constitutional: He is oriented to person, place, and time. He appears well- developed and well-nourished. No distress. HENT: Head: Normocephalic and atraumatic. Right Ear: Tympanic membrane is injected (mild). Left Ear: External ear normal. Nose: Rhinorrhea (clear) present. Mouth/Throat: Oropharynx is clear and moist. Eyes: EOM are normal. Pupils are equal, round, and reactive to light. Right eye exhibits no discharge. Left eye exhibits no discharge. No scleral icterus. Neck: Normal range of motion. Neck supple. Cardiovascular: Normal rate, regular rhythm and normal heart sounds. Pulmonary/Chest: Effort normal and breath sounds normal. Dry cough Abdominal: Soft. Bowel sounds are normal. There is no tenderness. Musculoskeletal: Normal range of motion. Lymphadenopathy: He has no cervical adenopathy. Neurological: He is alert and oriented to person, place, and time. Skin: Skin is warm and dry. He is not diaphoretic. Psychiatric: He has a normal mood and affect. Vitals reviewed. ED Course Procedures 2:41 PM The patient was seen and examined by Dr. Vasquez in Room 18. Results for orders placed during the hospital encounter of 09/24/14 (from the past 24 hour(s)) RAPID STREP SCREEN Result Value Ref Range Specimen Description Throat Rapid Strep A Screen Value: NEGATIVE: No Group A streptococcal antigen detected by immunoassay, await culture report. Micro Report Status FINAL 09/24/2014 INFLUENZA A/B ANTIGEN Result Value Ref Range Influenza A/B Agn Specimen Nasopharyngeal Influenza A Negative NEG Influenza B NEG Value: Negative Test results must be correlated with clinical data. If necessary, results should be confirmed by a molecular assay or viral culture. Assessments & Plan (with Medical Decision Making) The patient presents with 5 days of illness consistent with viral illness. Rapid flu and strep are negative. I do not feel based on presentation that this is due to seasonal allergies. Prescribed supportive meds. I have reviewed the nursing notes. I have reviewed the findings, diagnosis, plan and need for follow up with the patient. New Prescriptions GUAIFENESIN-CODEINE (ROBITUSSIN AC) 100-10 MG/5ML SOLN Take 10 mLs by mouth every 4 hours as neededfor cough IBUPROFEN (ADVIL,MOTRIN) 600 MG TABLET Take 1 tablet (600 mg) by mouth every 6 hours as needed for moderate pain OXYMETAZOLINE (AFRIN NASAL SPRAY) 0.05 % NASAL SPRAY [place] 2 sprays in nostril 2 times daily for 3 days Final diagnoses: Viral illness ILuis, am serving as a trained medical affairs director to document services personally performed by Tara Vasquez MD, based on the provider's statements to me. ITara MD, was physically present and have reviewed and verified the accuracy of this note documented by Luis Plunkett. 09/24/2014 [facility], [facility], EMERGENCY DEPARTMENT Tara Vasquez MD 09/24/14 1635 documented in this encounter Plan of Treatment Upcoming Encounters Date Type Specialty Care Team Description 06/16/2022 Virtual Visit Endocrinology Gilberto Weathers MD [address] [place] [address] Ky Marcos MD [address] [place] [address] Pending Results Name Type Priority Associated Diagnoses Date/Ti me Beta strep group A Microbiology Routine Viral illness 09/25/19 15 2:57 PM CDT culture documented as of this encounter Procedures Procedure Name Priority Date/Time Associated Diagnosis Comme nts RAPID STREP SCREEN STAT 09/24/2014 2:57 PM Res ults for this THROAT SWAB CDT procedure are i n the results section. INFLUENZA A/B STAT 09/24/2014 2:57 PM Results for this ANTIGEN CDT procedure are i n the results section. BETA HEMOLYTIC Routine 09/24/2014 2:57 PM Viral illness STREP GROUP A CDT CULTURE documented in this encounter Results Influenza A/B antigen swab (09/24/2014 2:57 PM CDT) Component Value Ref Test Analysis Performed At [employer] Range Method Time Signature Influenza A/B Nasopharyngeal [facility] Specimen [facility] Influenza A Negative NEG [facility] Influenza B Negative NEG [facility] results must be correlated with clinical data. If ne cessary, results [facility] should be confirmed by a molecular assay or viral culture. [facility] Specimen (Source) Anatomical Location Collection Collection Time Received Time / Laterality Method / Volume Specimen from NASOPHARYNGEAL 09/24/2014 2:57 5 nasopharyngeal STRUCTURE / Unknown PM CDT 3:03 P M CDT structure (specimen) Tara Vasquez MD LAB - MICRO GENERAL ORDERABL ES Performing Organization Address City/State/ZIP Code Phon e Number [address] [address] [facility] Rapid strep screen (09/24/2014 2:57 PM CDT) Component Value Ref Test Analysis Performed At [employer] Range Method Time Signature Specimen Throat [facility] Rapid Strep A NEGATIVE: No Group A strepto coccal antigen detected by immunoassay, await [facility] culture report. [facility] Micro Report FINAL 09/24/2014 [facility] Specimen Anatomical Collection Method Collection Time Receive d Time (Source) Location / / Volume Laterality Specimen from 09/24/2014 2:57 PM 09/25/19 15 3:03 throat CDT PM CDT (specimen) Tara Vasquez MD LAB - MICRO GENERAL ORDERABL ES Performing Organization Address City/[facility] Code Phon e Number [address] [address] [facility] documented in this encounter Visit Diagnoses Diagnosis Viral illness Unspecified viral infection, in conditio ns classified elsewhere and of unspecified site documented in this encounter Administered Medications Inactive Administered Medications - up to 3 most recent administrations Medication Order MAR Action Action Date Dose Rate Site ibuprofen (ADVIL,MOTRIN) tablet Given 09/24/2014 2:58 PM CDT 600 mg 600 mg 600 mg, Oral, ONCE, On Wed09/24/14 at 1451, For 1 dose documented in this encounter Active and Recently Administered Medications Times are shown in CDT. Scheduled Medication Order 09/22/2014 09/23/2014 09/24/2014 ibuprofen (ADVIL,MOTRIN) tablet 600 mg (CANCELED) 1458 (Given - Provider: Hilda Garcia RN) 600 mg, Oral, ONCE, 09/24/14 at 1451, For 1 dose documented in this encounter Care Teams Front End Web Designer Relationship Specialty Start Date End Date No Ref-Primary, Physician PCP - General 09/24/14 1 06/01/14 documented as of this encounter
[2022-03-05 04:09] VITALS: BP 114/78; PULSE 89; RESP 18; TEMP 36.6
[2022-03-05 04:10] VITALS: BP 115/70; PULSE 79; RESP 18; TEMP 36.6; O2SAT 99
== END 2022-03-05 04:10 | disposition home or self-care (01) ==
PROVIDERS: Emergency Provider Family Medicine
DX: M26.601 Right temporomandibular joint disorder, unspecified (principal)
CPT/HCPCS: 99282; 99283; A9270

== ENCOUNTER 2023-10-31 17:41 | Emergency (ER) | payer OTHER, SELFPAY ==
[2023-10-31 17:59] VITALS: BP 110/66; PULSE 96; RESP 20; TEMP 36.5; O2SAT 96; BMI 28.9
--- NOTE | 2023-10-31 18:14 | CRLHL7_ITS ---
For Patients: As a result of the Century Cures Act, medical imaging exams and procedure reports are released immediately into your electronic medical record. You may view this report before your referring provider. If you have questions, please contact your health care provider. Indication: Headache, dizzy, ataxia L arm Technique: CTA head and neck performed after the uncomplicated administration 95 mL Isovue 370. MIP and/or 3D reformations were obtained. Comparison: None Findings: FINDINGS: BRAIN FINDINGS: No acute intracranial hemorrhage, midline shift, or hydrocephalus. No abnormal intracranial enhancement. BRAIN VASCULAR FINDINGS: Distal Vertebral Arteries: Patent. Basilar Artery: Patent. Superior Cerebellar Arteries: Patent. Posterior Cerebral Arteries: Patent. Internal Carotid Arteries: Patent. Middle Cerebral Arteries: Patent. Anterior Cerebral Arteries: Patent. No intracranial aneurysm. NECK VASCULAR FINDINGS: Aortic Arch and Subclavian Arteries: Patent. Standard 3-vessel arch. Common Carotid Arteries: Patent. Internal Carotid Arteries: Patent with no stenosis. Cervical Vertebral Arteries: Patent. No aneurysm or dissection. Visualized soft tissues are unremarkable. IMPRESSION: No hemodynamically significant stenosis or large vessel occlusion in the head or neck. Impression: No stenosis or large vessel occlusion in the head or neck. Please note that all CT scans at this facility use dose modulation, iterative reconstruction, and/or weight-based dosing when appropriate to reduce radiation dose to as low as reasonably achievable. Dictated by Derrek Carbone MD @ 10/31/2023 7:45:49 PM (Electronically Signed)
--- NOTE | 2023-10-31 18:14 | CRLHL7_ITS ---
For Patients: As a result of the Century Cures Act, medical imaging exams and procedure reports are released immediately into your electronic medical record. You may view this report before your referring provider. If you have questions, please contact your health care provider. Indication: Headache, dizzy, ataxia L arm Technique: CT Head without IV contrast Comparison: None Findings: Brain Parenchyma: No acute infarct, acute intracranial hemorrhage, mass effect, or midline shift. Ventricles: No hydrocephalus. Extra-axial Spaces: No abnormal fluid collection. Paranasal sinuses: No significant mucosal thickening. Orbits: Unremarkable. Mastoid Sinuses: Unremarkable. Cranium: No acute fracture. Soft tissues: Unremarkable. Impression: No evidence of an acute intracranial process. Please note that all CT scans at this facility use dose modulation, iterative reconstruction, and/or weight-based dosing when appropriate to reduce radiation dose to as low as reasonably achievable. Dictated by Derrek Carbone MD @ 10/31/2023 7:40:23 PM (Electronically Signed)
--- NOTE | 2023-10-31 18:16 | ED.GENADULT ---
HPI - General Adult General Date Seen: 10/31/23 Chief complaint: Unspecified Complaint, Adult Stated complaint: Dizziness, blurred vision, short of breath Time Seen by Provider: 10/31/23 18:07 Source: patient, RN notes reviewed and old records reviewed Mode of arrival: ambulatory Limitations: no limitations History of Present Illness HPI narrative: Patient is a 38-year-old male who has had diabetes, 1st diagnosed he said in 2004 or . He was initially maintained on metformin and is now insulin dependent. He has been out of his supplies for his glucometer since yesterday but generally checks his sugars he says. Last A1c unknown. Presents today for symptoms including headache, right posterior neck pain, lightheadedness, spinning sensation, vomiting x2, and slight shortness of breath which he noted today. He says the 1st thing he noted yesterday was his headache, and then has gradually worsened since then. He denies prior history of heart disease or stroke, says he has had some chest pain the past that was evaluated without any abnormal findings. He does smoke cigarettes. Denies significant alcohol. Related Data Home Medications ?Medication ?Instructions ?Recorded ?Confirmed atorvastatin 20 mg tablet 20 mg PO QHS 03/05/22 03/05/22 fluticasone propionate 50 1 spray intranasal DAILY PRN 03/05/22 03/05/22 mcg/actuation nasal spray,suspension (Allergy Relief (fluticasone)) insulin aspart U-100 100 unit/mL 1 sliding scale dose subcut 03/05/22 03/05/22 (3 mL) subcutaneous pen USEASDIRECTD insulin glargine 100 unit/mL (3 26 unit subcut QPM 03/05/22 03/05/22 mL) subcutaneous pen metformin 500 mg tablet 500 mg PO BID 03/05/22 03/05/22 omeprazole 20 mg capsule,delayed 20 mg PO DAILY 03/05/22 03/05/22 release psyllium (Hydrocil oral powder) 1 tbsp PO DAILY 03/05/22 03/05/22 Previous Rx's ?Medication ?Instructions ?Recorded fluocinolone acetonide oil 0.01 % 5 drp Otic (ear-right) BID 7 days 03/05/22 ear drops #15 mL Allergies Allergy/AdvReac Type Severity Reaction Status Date / Time No Known Drug Allergies Allergy Verified 10/13/22 03:25 Review of Systems Status of ROS: Reports: 10 or more systems reviewed and unremarkable except as noted in History and below [facility] Medical History Hyperlipidemia ?E78.5 - Hyperlipidemia, unspecified (ICD-10) GERD (gastroesophageal reflux disease) ?K21.9 - Gastro-esophageal reflux disease without esophagitis (ICD-10) DM (diabetes mellitus), type 2 ?E11.9 - Type 2 diabetes mellitus without complications (ICD-10) Surgical History No significant past surgical history Social History Smoking Status: Current every day smoker What tobacco products do you use: cigarettes Do you use any of these nicotine containing products: None Second hand tobacco smoke exposure: No How often do you have a drink containing alcohol: never How often do you have six or more drinks on one occasion: Never AUDIT-C Alcohol total score: 0 Non-prescribed substance use: denies use Exam Narrative: Exam Narrative: Vital signs as noted above. In general, an alert, nontoxic male. Breathing easily. Head: Normocephalic, atraumatic. Eyes: Pupils are equal reactive. Extraocular movements are full. No nystagmus. Conjunctivae are normal. ENT: Mucous membranes are moist. Throat is normal. Tongue is midline. Neck: Supple without lymphadenopathy. Some tenderness in the right posterior paracervical musculature. Heart: Regular rate and rhythm. No murmur or rub. Lungs: Clear bilaterally. No increased work of breathing, crackles or wheezes. Abdomen: Soft and nontender. No organomegaly. Extremities: Well perfused. No edema. No calf tenderness. Pulses intact. Neurologic: Patient is alert and oriented to person and place. Speech is fluent. Face is symmetric. Moves all extremities equally. He does have some ataxia noted with finger-nose testing of the left arm, he consistently misses his nose and lands toward the right corner of his mouth. Romberg is negative. Gait is stable although he says he feels somewhat unsteady. Affect: Normal. Skin: Warm and dry. Well perfused. Const: Vital Signs, click to edit/add: Vital Signs - 24 hr 10/31/23 17:59 10/31/23 19:45 10/31/23 20:50 Temperature 97.7 F Pulse Rate [Pulse Oximeter] 96 82 77 Respiratory Rate 20 16 16 Blood Pressure [Ri ght Upper Arm] 110/66 120/79 119/74 Pulse Oximetry 96 98 99 Oxygen Delivery Me thod Room Air Room Air Room Air Documenting provider has reviewed patient's vital signs: yes Course Course ED Course: Patient presents with a number of symptoms which started yesterday and involve since then. Diagnostic considerations include intracranial hemorrhage or stroke, vertebral artery dissection, venous sinus thrombosis, peripheral vertigo, dehydration, metabolic derangement, DKA, infection among others. Plan at this time is to place an IV, obtain a noncontrast head CT as well as CT angiogram of the head and neck. He does request medication for pain, will give some morphine as well as Zofran and a L of normal saline. Labs and EKG pending. Symptoms started yesterday, he is outside the window for specific treatment in terms of lytics or thrombectomy. Patient had a CT of the head which by my review was negative, read as negative by Radiology. CT angiogram read as negative by Radiology for dissection or other acute findings. Labs were notable for a white blood cell count is 7 and half, normal diff, normal hemoglobin and normal platelets. Venous gas did not show significant acidosis, in fact he was mildly alkalotic with a pH is 7.45, pCO2 of 37 and a PO2 of 77. Venous bicarb was 26. Sodium was 133, CO2 was 26. Gap was 3. BUN and creatinine normal. Blood sugar initially was 374. Magnesium 2.2 CRP less than 0.5. Point of care troponin was 0. He was given 10 units of subcu insulin. There is no evidence of DKA based on labs. His repeat blood sugar was 225. He does say that he will be able to get his supplies to monitor his blood sugar as of tomorrow. He went on have an MRI of the brain without contrast. This is read by radiology as follows:Findings: The ventricles, sulci and gyri are normal size, shape and contour for age. The midline structures are centrally located with no evidence of shift. There are no suspicious intra or extra-axial fluid collections. No region of restricted diffusion. Expected flow voids in the cavernous carotids and basilar artery. Small air-fluid level in the left maxillary sinus and mild mucosal thickening in the bilateral maxillary sinuses. The pituitary gland, optic chiasm, pineal gland, and cerebellar tonsils are unremarkable. Impression: 1. Unremarkable noncontrast MRI of the brain. 2. Small air-fluid level in the left maxillary sinus and mild mucosal thickening in the bilateral maxillary sinuses I discussed his case with Neurology. They felt that with negative CT and MRI this was likely vertiginous migraine. Talking with the patient he does feel he has had some sinus symptoms so will go ahead and treat for possible sinusitis as well. He is feeling improved after 4 mg of morphine and 4 mg of Zofran. Discharge home, I have recommended primary care follow-up in the next week for recheck, prescribed Augmentin from [facility]. Outpatient neurology follow-up may be reasonable as well, would ask that he talk with his primary doctor about this. Vital Signs Vital signs: Initial Vital Signs Temperature 97.7 F 10/31/23 17:59 Temperature Source Temporal Artery Scan 10/31/23 17:59 Pulse Rate 96 10/31/23 17:59 Pulse Rhythm Regular 10/31/23 17:59 Respiratory Rate 20 10/31/23 17:59 Blood Pressure 110/66 10/31/23 17:59 Blood Pressure Mean 80 10/31/23 17:59 Blood Pressure Position Sitting 10/31/23 17:59 Pulse Oximetry 96 10/31/23 17:59 Oxygen Delivery Method Room Air 10/31/23 17:59 Vital Signs Temperature 97.7 F 10/31/23 17:59 Pulse Rate 96 10/31/23 17:59 Respiratory Rate 20 10/31/23 17:59 Blood Pressure 110/66 10/31/23 17:59 Pulse Oximetry 96 10/31/23 17:59 Oxygen Delivery Method Room Air 10/31/23 17:59 Temperature 97.7 F 10/31/23 17:59 Pulse Rate 77 10/31/23 20:50 Respiratory Rate 16 10/31/23 20:50 Blood Pressure 119/74 10/31/23 20:50 Pulse Oximetry 99 10/31/23 20:50 Oxygen Delivery Method Room Air 10/31/23 20:50 Medications Administered Medications: Discontinued Medications Generic Name Dose Route Start Last Admin Trade Name Freq PRN Reason Stop Dose Admin Sodium Chloride 1,000 mls @ 1,000 mls/hr 10/31/23 18:15 10/31/23 20:30 0.9 % Sodium Chloride 1000 Ml IV 10/31/23 19:14 Infused .Q1H DWAIN Infusion Insulin Human Regular 10 unit 10/31/23 19:23 10/31/23 19:31 Insulin Regular 100 Unit/Ml Inj SUBCUT 10/31/23 19:24 10 unit ONCE ONE Administration Morphine Sulfate 4 mg 10/31/23 18:14 10/31/23 19:31 Morphine 4 Mg/Ml Inj IVP 10/31/23 18:15 4 mg ONCE ONE Administration Ondansetron HCl 4 mg 10/31/23 18:14 10/31/23 19:31 Ondansetron 2 Mg/Ml Inj IVP 10/31/23 18:15 4 mg ONCE ONE Administration Medical Decision Making Lab Data Labs: Lab Results 10/31/23 10/31/23 10/31/23 Range/Units 18:15 18:44 18:48 WBC 7.50 (4.50-11.00) K/uL RBC 4.76 (4.30-5.90) m/uL Hgb 14.5 (13.5-17.5) gm/dL Hct 43.4 (37.0-53.0) % MCV 91 (80-100) fL MCH 31 (26-34) pg MCHC 33 (32-36) gm/dL RDW Coeff of Sherley 13.2 (11.5-15.5) % Plt Count 332 (140-440) K/uL Neut % (Auto) 46.6 (42.0-72.0) % Lymph % (Auto) 41.7 (20-44) % [place] % (Auto) 8.8 (0.0-11.0) % Eos % (Auto) 2.5 (0.0-7.0) % Baso % (Auto) 0.3 (0.0-3.0) % Neut # (Auto) 3.49 (1.7-7.0) K/uL Lymph # (Auto) 3.13 H (0.90-2.90) K/uL [place] # (Auto) 0.70 (0.00-0.90) K/UL Eos # (Auto) 0.19 (0.00-0.50) K/uL Baso # (Auto) 0.02 (0.00-0.30) K/uL Abs Immat Gran (auto) 0.01 (0.00-0.30) K/uL Imm/Tot Granulo (auto) 0.1 % INR 0.92 (0.91-1.10) APTT 27 (23-33) Seconds VBG pH 7.450 H (7.32-7.43) VBG pCO2 37 L (40-50) mmHG VBG pO2 77.5 H (25-47) mmHG VBG HCO3 26 (21-28) mmol/L Sodium 133 L (135-149) mmol/L Potassium 4.1 (3.6-5.1) mmol/L Chloride 104 (96-114) mmol/L Carbon Dioxide 26 (20-32) mmol/L Anion Gap 3 L (7-15) mEq/L BUN 14 (5-24) mg/dL Creatinine 0.6 (0.5-1.5) mg/dL Estimated Creat Clear 165.29 Estimated GFR 126 ml/min Glucose 374 H* (60-115) mg/dL Calcium 8.7 (8.4-10.6) mg/dL Magnesium 2.2 (1.5-2.6) mg/dL C-Reactive Protein < 0.5 L (0.5-1.0) mg/dL POC Glucose (60-115) mg/dl POC Creatinine 0.6 (0.6-1.3) mg/dl POC Troponin I 0.00 L (0.01-0.04) ng/ml 10/31/23 Range/Units 20:55 WBC (4.50-11.00) K/uL RBC (4.30-5.90) m/uL Hgb (13.5-17.5) gm/dL Hct (37.0-53.0) % MCV (80-100) fL MCH (26-34) pg MCHC (32-36) gm/dL RDW Coeff of Sherley (11.5-15.5) % Plt Count (140-440) K/uL Neut % (Auto) (42.0-72.0) % Lymph % (Auto) (20-44) % [place] % (Auto) (0.0-11.0) % Eos % (Auto) (0.0-7.0) % Baso % (Auto) (0.0-3.0) % Neut # (Auto) (1.7-7.0) K/uL Lymph # (Auto) (0.90-2.90) K/uL [place] # (Auto) (0.00-0.90) K/UL Eos # (Auto) (0.00-0.50) K/uL Baso # (Auto) (0.00-0.30) K/uL Abs Immat Gran (auto) (0.00-0.30) K/uL Imm/Tot Granulo (auto) % INR (0.91-1.10) APTT (23-33) Seconds VBG pH (7.32-7.43) VBG pCO2 (40-50) mmHG VBG pO2 (25-47) mmHG VBG HCO3 (21-28) mmol/L Sodium (135-149) mmol/L Potassium (3.6-5.1) mmol/L Chloride (96-114) mmol/L Carbon Dioxide (20-32) mmol/L Anion Gap (7-15) mEq/L BUN (5-24) mg/dL Creatinine (0.5-1.5) mg/dL Estimated Creat Clear Estimated GFR ml/min Glucose (60-115) mg/dL Calcium (8.4-10.6) mg/dL Magnesium (1.5-2.6) mg/dL C-Reactive Protein (0.5-1.0) mg/dL POC Glucose 225 H (60-115) mg/dl POC Creatinine (0.6-1.3) mg/dl POC Troponin I (0.01-0.04) ng/ml Discharge Plan Discharge Clinical Impression: Vertiginous migraine, Sinusitis Patient Disposition: Home, Self-Care Condition: Improved Instructions: Sinusitis (ED), Migraine Headache (ED) Additional Instructions: Antibiotic as prescribed. Please follow-up with your primary doctor in the next week for recheck, outpatient neurology follow-up may be also be appropriate. Return any time for acute worsening. Your CT scan, CT angiogram and MRI were all negative aside from findings suggesting sinus infection in the maxillary sinus. Prescriptions: No Action insulin glargine 100 unit/mL (3 mL) insulin pen 26 unit subcut QPM insulin aspart U-100 100 unit/mL (3 mL) insulin pen 1 sliding scale dose subcut USEASDIRECTD Patient Comments: 4 units before breakfast, 8 units before lunch, 8 units before dinner Hydrocil Powder 1 tbsp PO DAILY Rx Instructions: mix into at least 8 oz of water or juice before administering atorvastatin 20 mg tablet 20 mg PO QHS metformin 500 mg tablet 500 mg PO BID omeprazole 20 mg capsule,delayed release(DR/EC) 20 mg PO DAILY fluticasone propionate [Allergy Relief (fluticasone)] 50 mcg/actuation spray,suspension 1 spray intranasal DAILY PRN Rx Instructions: administer into each nostril fluocinolone acetonide oil 0.01 % drops 5 drp Otic (ear-right) BID 7 Days Qty: 15 0RF Follow Up/Referrals: Provider,Not a Local [Referring] - Stand Alone Forms: [facility] Info Instructions
--- OUTSIDE RECORDS SUMMARY | 2023-10-31 18:24 | XMS_ITS | Encounter Summary ---
Author Organization [facility] Address [address] [place] [address]. [place] [address] Care Team Providers Care Mother Baby Rn Name Role Phone Gilberto Weathers MD Primary Care Provider [phone] Kiki Acevedo [facility] Unavailable [phone] Finn Harris MD Unavailable Shirin vailable Wanda Bautista MD Unavailable [phone] Gilberto Weathers MD Unavailable [phone] Finn Harris MD Unavailable Shirin vailable Wanda Bautista MD Unavailable [phone] Mariah Mcmanus [facility] Unavailable [phone] Sarah Castañeda [facility] Unavailable [phone] SchwMariah louis [facility] Unavailable [phone] Ky Marcos MD Unavailable Ky Marcos MD Unavailable Na Ibarra [facility] Unavailable [phone] Encounter Details Date Type Department Care Team (Late st Contact Info) Description 02/05/2021 [facility] [address] [id number] Finn Harris MD NO INFO AVAILABLE Social History Tobacco Use Types Packs/Day Years Used Date Smoking Tobacco: Every Day Cigarettes 0.3 5 Smokeless Tobacco: Never Alcohol Use Standard Drinks/Week Comments No 0 (1 standard drink = 0.6 oz pur e alcohol) PHQ-2 Answer Date Recorded PHQ-2 Score 0 12/10/2020 Sex and Gender Information Value Date Recorded Sex Assigned at Male 09/01/2021 8:47 AM CDT Gender Identity Male 09/01/2021 8:47 AM CDT Sexual Orientation Straight 09/01/2021 8: 47 AM CDT COVID-19 Exposure Response Date Recorded In the last month, have you been in contact with someone who was confirmed or suspected to have Coronavirus / COVID-19? No / Unsure 01/28/2021 10:04 AM CDT documented as of this encounter Plan of Treatment Not on file documented as of this encounter Visit Diagnoses Not on filedocumented in this encounter Additional Health Concerns Infection Onset Date Last Indicated Resolved Time Rule Out COVID-19 05/12/2021 05/12/2021 05/12/2021 12:08 PM ICE CRUSHER COVID-19 05/12/2021 05/12/2021 06/02/2021 11:3 9 PM ICE CRUSHER Rule Out COVID-19 06/10/2021 06/10/2021 06/10/2021 6:57 PM ICE CRUSHER Rule Out COVID-19 10/28/2021 10/28/2021 10/29/2021 11:41 AM CDT Rule Out COVID-19 09/14/2023 09/14/2023 09/14/2023 6:00 PM CDT documented as of this encounter Care Teams Mother Baby Rn Relationship Specialty Start Date End Date Gilberto Weathers MD [address] [place] [address] PCP - General Internal Medicine 01/13/16 Kiki Acevedo, [facility] [address] [place] [id number] Pharmacist Pharmacist 11/08/18 04/29/21 Finn Harris MD [address] [place] [id number] Endocrinology, Diabetes, and Metabolism 12/23/20 Wanda Bautista MD [address] [place] [id number] Ophthalmology 12/31/20 Gilberto Weathers MD [address] [place] [address] Assigned PCP 01/05/21 Finn Harris MD NO INFO AVAILABLE Assigned Endocrinology Provider 02/09/21 07/03/22 Wanda Bautista MD [address] [place] [address] [id number] Assigned Surgical Provider 02/02/21 09/11/22 Mariah Mcmanus, [facility] [address] [id number] Assigned MTM Pharmacist 10/18/2102/06 Sarah Castañeda, [facility] [address] [place] [address] [place] [address] Pharmacist 02/03/22 02/23/22 Mariah Mcmanus, [facility] [address] [id number] Assigned MTM Pharmacist 02/18/2202/21 Ky Marcos MD [address] [place] [address] Physician Endocrinology, Diabetes, and Metabolism 02/20/22 Ky Marcos MD [address] [place] [address] Assigned Endocrinology Provider 07/04/22 Na Ibarra [facility] [address] [place] [address] Pharmacist Pharmacist 12/21/22 documented as of this encounter
--- OUTSIDE RECORDS SUMMARY | 2023-10-31 18:24 | XMS_ITS | Encounter Summary ---
Author Organization [place] Address [address] [place] [id number] Care Team Providers Care Senior Industrial Engineer Name Role Phone Gilberto Weathers MD Primary Care Provider [phone] Finn Harris MD Unavailable Shirin Wanda Eubanks MD Unavailable [phone] Gilberto Weathers MD Unavailable [phone] Ky Marcos MD Unavailable Ky Marcos MD Unavailable aN Ibarra [facility] Unavailable [phone] Reason for Visit * Reason Comments Shortness of Breath Encounter Details Date Type Department Care Team (Late st Contact Info) Description 09/14/2023 7:19 PM CDT - 09/14/2023 9:18 PM CDT Emergency [facility] Emergency Dept [address] [place] [address] Purvi Terrell MD [facility] [address] [place] [address] Viral respiratory illness Discharge Disposition: Home or Self Care Social History Tobacco Use Types Packs/Day Years Used Date Smoking Tobacco: Every Day Cigarettes 0.5 5 Passive Smoke Exposure: Current Smokeless Tobacco: Never Alcohol Use Standard Drinks/Week Comments No 0 (1 standard drink = 0.6 oz pur e alcohol) Humiliation, Afraid, Rape, and Kick questionnair e Answer Date Recorded Within the last year, have y ou been afraid of your partner or ex-partner? No 03/10/2021 Within the last year, have y ou been humiliated or emotionally abused in other ways by your partner or ex-partner? No Within the last year, have y ou been kicked, hit, slapped, or otherwise physically hurt by your partner or ex-partner? No 03/10/2021 Within the last year, have y ou been raped or forced to have any kind of sexual activity by your partner or ex-partner? No 03/10/2021 PHQ-2 Answer Date Recorded PHQ-2 Score 0 06/04/2023 Adolescent Education Answer Date Record ed Getting School Help Needed Not on file 02/12 Sex and Gender Information Value Date Recorded Sex Assigned at Male 09/01/2021 8:47 AM CDT Gender Identity Male 09/01/2021 8:47 AM CDT Sexual Orientation Straight 09/01/2021 8: 47 AM CDT documented as of this encounter Last Filed Vital Signs Vital Sign Reading Time Taken Comments Blood Pressure 127/82 09/14/2023 8:38 PM CDT Pulse 67 09/14/2023 8:38 PM CDT Temperature 36.7 ??C (98.1 ??F) 09/14/2023 4:49 PM CD T Respiratory Rate 16 09/14/2023 8:38 PM CDT Oxygen Saturation 100% 09/14/2023 8:38 PM CDT Inhaled Oxygen Concentration - - Weight 86.3 kg (190 lb 4.1 oz) 09/14/2023 4:49 P M CDT Height 180.3 cm (5' 11) 09/14/2023 4:49 PM CDT Body Mass Index 26.54 09/14/2023 4:49 PM CDT documented in this encounter Discharge Instructions * Discharge Instructions* Purvi Terrell MD - 09/14/2023 8:58 PM CDT Ibuprofen 600mg every 6 hours for headache Tylenol 1000mg every 8 hours Push fluids and rest Recheck with your doctor * Attachments The following attachments cannot be sent through Care Everywhere. * Viral Infections (Haitian) documented in this encounter Medications at Time of Discharge Medication Sig Dispensed Refills Start Date End Date alcohol swab prep padsIndications:Uncont rolled type 2 diabetes mellitus without complication, without long-term current use of insulin Use to swab area of injection/mendez as directed. 100 each 03/14/2019 atorvastatin (LIPITOR) 20 MG tabletIndications:Hype rlipidemia LDL goal <100 Take 1 tablet (20 mg) by mouth daily 90 tablet 3 06/04/2023 blood glucose (HOMERO MICROLET 2) lancing deviceIndications:Unco ntrolled type 2 diabetes mellitus without complication, without long-term current use of insulin Lancing device to be used with lancets. 1 each 03/14/2019 blood glucose ([employer] NEXT TEST) test stripIndications:Uncon trolled type 2 diabetes mellitus without complication, without long-term current use of insulin TEST blood sugar ONCE DAILY 100 strip 03/14/2019 blood glucose monitoring (HOMERO MICROLET) lancetsIndications:Unc ontrolled type 2 diabetes mellitus without complication, without long-term current use of insulin Use to test blood sugar One times daily. 100 each 03/14/2019 blood glucose monitoring (CONTOUR NEXT MONITOR W/DEVICE KIT) meter device kitIndications:Uncontr olled type 2 diabetes mellitus without complication, without long-term current use of insulin To check Blood Glucose one time daily 1 kit 03/14/2019 Continuous Blood Gluc Driver License Agent (FREESTYLE JONI 2 READER) DEVIIndications:Type 1 diabetes mellitus without complication (H) 1 each daily 1 each 12/03/2021 Continuous Blood Gluc Driver License Agent (FREESTYLE JONI 3 READER) DEVIIndications:Type 2 diabetes mellitus with hyperglycemia, with long-term current use of insulin (H) 1 Act 4 times daily 2 each 3 06/04/2023 Continuous Blood Gluc Sensor (DEXCOM G7 SENSOR) MISCIndications:Type 1 diabetes mellitus with other specified complication (H) 1 each every 10 days Change sensor every 10 days 9 each 5 08/09/2023 Continuous Blood Gluc Sensor (FREESTYLE JONI 2 SENSOR) MISCIndications:Type 1 diabetes mellitus without complication (H) 1 each every 14 days 6 each 3 06/16/2022 Continuous Blood Gluc Sensor (FREESTYLE JONI 3 SENSOR) MISCIndications:Type 2 diabetes mellitus with hyperglycemia, with long-term current use of insulin (H) 1 Act 4 times daily 2 each 3 06/04/2023 fluticasone (FLONASE) 50 MCG/ACT nasal sprayIndications:Conge stion of paranasal sinus [place] 1-2 sprays into both nostrils daily 16 g 3 12/16/2020 glucose (BD GLUCOSE) 4 g chewable tabletIndications:Type 1 diabetes mellitus with other specified complication (H) Take 3 tablets by mouth daily as needed for low blood sugar 30 tablet 11 12/16/2020 ibuprofen (ADVIL/MOTRIN) 600 MG tabletIndications:Paro nychia of finger of right hand Take 1 tablet (600 mg) by mouth every 6 hours as needed 20 tablet 01/13/2021 insulin aspart (NOVOLOG PEN) 100 UNIT/ML penIndications:Type 2 diabetes mellitus with hyperglycemia, with long-term current use of insulin (H) Take 4 units before breakfast, 8 units before lunch and 8 units before supper Take 1/2 doses if blood sugars are 80-100 Hold the dose if blood sugars are less than 80. Max dose 20 units daily 15 mL 3 02/18/2022 insulin glargine (LANTUS PEN) 100 UNIT/ML penIndications:Type 2 diabetes mellitus with hyperglycemia, with long-term current use of insulin (H) Inject 26 Units Subcutaneous at bedtime 30 mL 06/04/2023 insulin lispro (HUMALOG KWIKPEN) 100 UNIT/ML (1 unit dial) KWIKPENIndications:Typ e 2 diabetes mellitus with hyperglycemia, with long-term current use of insulin (H) PLEASE SEE ATTACHED FOR DETAILED DIRECTIONS 15 mL 1 05/25/2023 insulin pen needle (BD AUTOSHIELD DUO) 30G X 5 MMIndications:Type 1 diabetes mellitus with other specified complication (H) Use 1-4 pen needles daily or as directed. 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 Patient started having chest pain, SOB, headache, body aches last night. Patient took Tylenol this morning. Triage Assessment (Adult) Row Name 09/14/23 1648 Triage Assessment Airway WDL WDL Respiratory WDL Respiratory WDL WDL Skin Circulation/Temperature WDL Skin Circulation/Temperature WDL WDL Cardiac WDL Cardiac WDL chest pain Peripheral/Neurovascular WDL Peripheral Neurovascular WDL WDL Cognitive/Neuro/Behavioral WDL Cognitive/Neuro/Behavioral WDL WDL * Purvi Terrell MD - 09/14/2023 4:46 PM CDT History Chief Complaint: Shortness of Breath HPI Ana Mcgowan is a 38 year old male who presents with chest pain and shortness of breath. Patientdeveloped chest pain, shortness of breath, and headache last night. The chest pain is primarily on his right side and has since started to radiate into his back. Patient's shortness of breath developed with the chest pain. He endorses nasal drainage that has since resolved, congestion, headache (which feels all over the head and comes in waves). He states that tylenol did not help. He denies fever, cough, sick contact, sore throat, nausea, emesis, diarrhea, shortness of breath. He does not takeany prescription medications apart from his diabetes medication. Independent Historian: None - Patient Only Review of External Notes: none Medications: metformin Insulin Past Medical History: Past Medical History: Diagnosis Date Diabetes mellitus type 2, controlled (H) 2014 Past Surgical History: No past surgical history on file. Physical Exam Patient Vitals for the past 24 hrs: BP Temp Temp src Pulse Resp SpO2 Height Weight 09/14/23 1649 121/60 98.1 ??F (36.7 ??C) Oral 86 18 100 % 1.803 m (5' 11) 86.3 kg (190 lb 4.1 oz) Physical Exam Constitutional: Appearance: He is well-developed. HENT: Right Ear: External ear normal. Left Ear: External ear normal. Mouth/Throat: Mouth: Mucous membranes are dry. Pharynx: Oropharynx is clear. No oropharyngeal exudate or posterior oropharyngeal erythema. Eyes: General: No scleral icterus. Extraocular Movements: Extraocular movements intact. Conjunctiva/sclera: Conjunctivae normal. Pupils: Pupils are equal, round, and reactive to light. Cardiovascular: Rate and Rhythm: Normal rate and regular rhythm. Heart sounds: Normal heart sounds. No murmur heard. No friction rub. No gallop. Pulmonary: Effort: Pulmonary effort is normal. No respiratory distress. Breath sounds: Normal breath sounds. No stridor. No wheezing, rhonchi or rales. Abdominal: General: Bowel sounds are normal. There is no distension. Palpations: Abdomen is soft. There is no mass. Tenderness: There is no abdominal tenderness. Musculoskeletal: General: Normal range of motion. Cervical back: Normal range of motion and neck supple. Right lower leg: No edema. Left lower leg: No edema. Skin: General: Skin is warm and dry. Capillary Refill: Capillary refill takes less than 2 seconds. Findings: No rash. Neurological: General: No focal deficit present. Mental Status: He is alert. Emergency Department Course ECG ECG taken at 1658, ECG read at 1708 Normal sinus rhythm Nonspecific ST abnormality No significant change as compared to prior, dated 04/21/15. Rate 84 bpm. TN interval 166 ms. QRS duration 96 ms. QT/QTc 350/413 ms. P-R-T axes 22 65 41. Read by: Purvi Terrell MD Imaging: Chest XR, PA & LAT Final Result IMPRESSION: Negative chest. Report per radiology. Laboratory: Labs Ordered and Resulted from Time of ED Arrival to Time of ED Departure BASIC METABOLIC PANEL - Abnormal Result Value Sodium 130 (*) Potassium 4.4 Chloride 97 (*) Carbon Dioxide (CO2) 25 Anion Gap 8 Urea Nitrogen 12.2 Creatinine 0.72 GFR Estimate >90 Calcium 9.1 Glucose 357 (*) INFLUENZA A/B, RSV, & SARS-COV2 PCR - Normal Influenza A PCR Negative Influenza B PCR Negative RSV PCR Negative SARS CoV2 PCR Negative TROPONIN T, HIGH SENSITIVITY - Normal Troponin T, High Sensitivity <6 D DIMER QUANTITATIVE - Normal D-Dimer Quantitative <0.27 CBC WITH PLATELETS AND DIFFERENTIAL WBC Count 7.9 RBC Count 5.10 Hemoglobin 15.8 Hematocrit 47.4 MCV 93 MCH 31.0 MCHC 33.3 RDW 13.2 Platelet Count 319 % Neutrophils 49 % Lymphocytes 37 % Monocytes 9 % Eosinophils 4 % Basophils 1 % Immature Granulocytes 0 NRBCs per 100 WBC 0 Absolute Neutrophils 3.9 Absolute Lymphocytes 2.9 Absolute Monocytes 0.7 Absolute Eosinophils 0.3 Absolute Basophils 0.0 Absolute Immature Granulocytes 0.0 Absolute NRBCs 0.0 Emergency Department Course & Assessments: Interventions: Medications - No data to display Independent Interpretation (X-rays, CTs, rhythm strip): I independently interpreted the chest X-ray and noted no infiltrate Assessments/Consultations/Discussion of Management or Tests: ED Course as of 09/14/232057Sep 14, 20231919 I obtained history and examined the patient as noted above. 2055 I re-evaluated and updated patient. Social Determinants of Health affecting care: None Disposition: The patient was discharged. Impression & Plan [facility] Diagnoses: None Medical Decision Making: Patient presents today for drainage, chest pain and back pain. This certainly is likely viral related. Cardiac workup is negative. His EKG are unchanged since his previous one in 2014. Troponin is negative. D-dimer is negative. He got a dose of ibuprofen for his intermittent headache and he felt lot better. I suspect likely infection related symptoms at this point. He is nontoxic otherwise. I do not suspect meningitis or subarachnoid hemorrhage. I do not believe CT imaging is warranted at this point given the lack of finding. He is asked to push fluids and rest and continue with ibuprofen andTylenol. Return precaution provided. Diagnosis: ICD-10-CM 1. Viral respiratory illness J98.8 B97.89 Scribe Disclosure: I, Everettvarun Tonja, am serving as a scribe at 8:59 PM on 09/14/2023 to document services personally performed by Purvi Terrell MD, based on my observations and the provider's statements to me. 09/14/2023 Purvi Terrell MD Cheng, Wenlan, MD 09/14/23 3202 documented in this encounter Plan of Treatment Not on file documented as of this encounter Procedures Procedure Name Priority Date/Time Associated Diagnosis Comments XR CHEST 2 VIEWS STAT 09/14/2023 5:49 PM CDT EXTRA TUBE STAT 09/14/2023 5:05 PM CDT EXTRA RED TOP TUBE STAT 09/14/2023 5: 05 PM CDT EXTRA BLUE TOP TUBE STAT 09/14/2023 5 :05 PM CDT CBC WITH PLATELETS AND DIFFERENTIAL STAT 09/14/2023 5:05 PM CDT TROPONIN T, HIGH SENSITIVITY STAT 09/14/2023 5:05 PM CDT CBC WITH PLATELETS & DIFFERENTIAL STAT 09/14/2023 5:05 PM CDT D DIMER QUANTITATIVE STAT 09/14/2023 5:05 PM CDT BASIC METABOLIC PANEL STAT 09/14/2023 5:05 PM CDT EKG 12-LEAD, TRACING ONLY STAT 09/14/2023 4:58 PM CDT INFLUENZA A/B, RSV, & SARS-COV2 PCR STAT 09/14/2023 4:51 PM CDT documented in this encounter Results * Chest XR, PA & LAT (09/14/2023 5:49 PM CDT) Anatomical Region Laterality Modality Chest Computed Radiogr aphy 09/14/2023 5:49 PM CDT Impressions 09/14/2023 5:51 PM CDT IMPRESSION: Negative chest. Narrative 09/14/2023 5:51 PM CDT EXAM: XR CHEST 2 VIEWS LOCATION: [facility] DATE: 09/14/2023 INDICATION: chest pain, dyspnea COMPARISON: None. Procedure Note Uli Orellana MD - 09/14/2023 EXAM: XR CHEST 2 VIEWS LOCATION: [facility] DATE: 09/14/2023 INDICATION: chest pain, dyspnea COMPARISON: None. IMPRESSION: Negative chest. Terrence Barton MD IMG DIAGNOSTIC IM AGING ORDERABLES * D dimer quantitative (09/14/2023 5:05 PM CDT) D-Dimer Quantitative <0.27 0.00 - 0.50 ug/mL FEU 09/14/2023 7:41 PM CDT [facility] Blood STRUCTURE OF LEFT UPPER LIMB / Unknown Venipuncture / Unknown 09/14/2023 5:05 PM CDT 09/14/2023 5:18 PM CDT Narrative [facility] - 09/14/2023 7:41 PM CDT This D-dimer assay is intended for use in conjunction with a clinical pretest probability assessment model to exclude pulmonary embolism (PE) and deep venous thrombosis (DVT) in outpatients suspected of PE or DVT. The cut-off value is 0.50 ug/mL FEU. Purvi Terrell MD LAB - BLOOD ORDERABL ES LABORATORY [facility] Acute Care Lab [address] [facility] Lab (1st floor, no room number) [place] [address] * CBC with platelets and differential (09/14/2023 5:05 PM CDT) WBC Count 7.9 4.0 - 11.0 10e3/uL 09/14/2023 5:21 PM CDT [facility] RBC Count 5.10 4.40 - 5.90 10e6/uL 09/14/2023 5:21 PM CDT [facility] Hemoglobin 15.8 13.3 - 17.7 g/dL 09/14/2023 5:21 PM CDT [facility] Hematocrit 47.4 40.0 - 53.0 % 09/14/2023 5:21 PM CDT [facility] MCV 93 78 - 100 fL 09/14/2023 5:21 PM CDT [facility] MCH 31.0 26.5 - 33.0 pg 09/14/2023 5:21 PM CDT [facility] MCHC 33.3 31.5 - 36.5 g/dL 09/14/2023 5:21 PM CDT [facility] RDW 13.2 10.0 - 15.0 % 09/14/2023 5:21 PM CDT [facility] Platelet Count 319 150 - 450 10e3/uL 09/14/2023 5:21 PM CDT [facility] % Neutrophils 49 % 09/14/2023 5:21 PM CDT [facility] % Lymphocytes 37 % 09/14/2023 5:21 PM CDT [facility] % Monocytes 9 % 09/14/2023 5:21 PM CDT [facility] % Eosinophils 4 % 09/14/2023 5:21 PM CDT [facility] % Basophils 1 % 09/14/2023 5:21 PM CDT [facility] % Immature Granulocytes 0 % 09/14/2023 5:21 PM CDT [facility] NRBCs per 100 WBC 0 <1 /100 024 5:21 PM CDT [facility] Absolute Neutrophils 3.9 1.6 - 8.3 10e3/uL 09/14/2023 5:21 PM CDT [facility] Absolute Lymphocytes 2.9 0.8 - 5.3 10e3/uL 09/14/2023 5:21 PM CDT [facility] Absolute Monocytes 0.7 0.0 - 1.3 10e3/uL 09/14/2023 5:21 PM CDT [facility] Absolute Eosinophils 0.3 0.0 - 0.7 10e3/uL 09/14/2023 5:21 PM CDT [facility] Absolute Basophils 0.0 0.0 - 0.2 10e3/uL 09/14/2023 5:21 PM CDT [facility] Absolute Immature Granulocytes 0.0 <=0.4 10e3/uL 09/14/2023 5:21 PM CDT [facility] Absolute NRBCs 0.0 10e3/uL 09/14/2023 5:21 PM CDT [facility] Blood STRUCTURE OF LEFT UPPER LIMB / Unknown Venipuncture / Unknown 09/14/2023 5:05 PM CDT 09/14/2023 5:18 PM CDT Purvi Terrell MD LAB - BLOOD ORDERABL ES Performing Organization Address [facility]/ZIP Co de Phone Number [facility] [address] Lab (1st floor, no room number) [place] [phone] [place] [address] * Extra Red Top Tube (09/14/2023 5:05 PM CDT) Hold Specimen [facility] 09/14/2023 6:32 PM CDT LABORATORY Blood STRUCTURE OF LEFT UPPER LIMB / Unknown Venipuncture / Unknown 09/14/2023 5:05 PM CDT 09/14/2023 5:18 PM CDT Purvi Terrell MD LAB - BLOOD ORDERABL ES Performing Organization Address [facility]/ZIP Co de Phone Number [facility] [address] Lab (1st floor, no room number) [place] [phone], [facility] * Extra Blue Top Tube (09/14/2023 5:05 PM CDT) Hold Specimen [facility] 09/14/2023 6:32 PM CDT LABORATORY Blood STRUCTURE OF LEFT UPPER LIMB / Unknown Venipuncture / Unknown 09/14/2023 5:05 PM CDT 09/14/2023 5:18 PM CDT Purvi Terrell MD LAB - BLOOD ORDERABL ES Performing Organization Address City/[facility]/ZIP Co de Phone Number [facility] [address] Lab (1st floor, no room number) [address], [facility] * Troponin T, High Sensitivity (now) (09/14/2023 5:05 PM CDT) Troponin T, High Sensitivity <6 <=22 ng/L 09/14/2023 5:39 PM CDT [facility] Comment: Either a High Sensitivity Troponin T baseline (0 hours) value = 100 ng/L, or an increase in High Sensitivity Troponin T = 7 ng/L at 2 hours compared to 0 hours (2-0 hours), suggests myocardial injury, and urgent clinical attention is required. ?? If the 2-0 hours increase is <7 ng/L, a High Sensitivity Troponin T result above gender-specific reference ranges warrants further evaluation. Recommendations for further evaluation include correlation with clinical decision-making tool (e.g., HEART), a 3rd High Sensitivity Troponin T test 2 hours after the 2nd (a 20% change from baseline would represent concern), admission for observation, close PCC/cardiology follow-up, or urgent outpatient provocative testing. Blood STRUCTURE OF LEFT UPPER LIMB / Unknown Venipuncture / Unknown 09/14/2023 5:05 PM CDT 09/14/2023 5:18 PM CDT Purvi Terrell MD LAB - BLOOD ORDERABL ES LABORATORY [facility] Care Lab [address] [facility] Lab (1st floor, no room number) [place] [address], [facility] * (ABNORMAL) Basic metabolic panel (BMP) (09/14/2023 5:05 PM CDT) [facility] Signature Sodium 130(L) 135 - 145 mmol/L 09/14/2023 5:39 PM CDT LABORATORY Comment:Reference intervals for this test were updated on 02/16/2023 to more accurately reflect our healthy population. There may be differences in the flagging of prior results with similar values performed with this method. Interpretation of those prior results can be made in the context of the updated reference intervals. Potassium 4.4 3.4 - 5.3 mmol/L 09/14/2023 5:39 PM CDT LABORATORY Chloride 97(L) 98 - 107 mmol/L 09/14/2023 5:39 PM CDT LABORATORY Carbon Dioxide (CO2) 25 22 - 29 mmol/L 09/14/2023 5:39 PM CDT LABORATORY Anion Gap 8 7 - 15 mmol/L 09/14/2023 5:39 PM CDT LABORATORY Urea Nitrogen 12.2 6.0 - 20.0 mg/dL 09/14/2023 5:39 PM CDT [facility] Creatinine 0.72 0.67 - 1.17 mg/dL 09/14/2023 5:39 PM CDT [facility] GFR Estimate >90 >60 mL/min/1. 73m2 09/14/2023 5:39 PM CDT [facility] Calcium 9.1 8.6 - 10.0 mg/dL 09/14/2023 5:39 PM CDT LABORATORY Glucose 357(H) 70 - 99 mg/dL 09/14/2023 5:39 PM CDT LABORATORY Blood STRUCTURE OF LEFT UPPER LIMB / Unknown Venipuncture / Unknown 09/14/2023 5:05 PM CDT 09/14/2023 5:18 PM CDT Purvi Terrell MD LAB - BLOOD ORDERABL ES LABORATORY [facility] Acute Care Lab [address] Lab (1st floor, no room number) [place] [address] * EKG 12-lead, tracing only (09/14/2023 4:58 PM CDT) Systolic Blood Pressure mmHg RADIOLOGY RESULTS Diastolic Blood Pressure mmHg RADIOLOGY RESULTS Ventricular Rate 84 BPM RAD IOLOGY RESULTS Atrial Rate 84 BPM RADIOLOG Y RESULTS TN Interval 166 ms RADIOLOG Y RESULTS QRS Duration 96 ms RADIOLO GY RESULTS QT 350 ms RADIOLOGY RESULTS QTc 413 ms RADIOLOGY RESULTS P [place] 22 degrees RADIOLOGY RESULTS R AXIS 65 degrees RADIOLOGY RESULTS T [place] 41 degrees RADIOLOGY RESULTS Interpretation ECG Sinus rhythm Nonspecific ST abnormality Abnormal ECG When compared with ECG of 21-APR-2015 00:35, No significant change was found Confirmed by - EMERGENCY ROOM, PHYSICIAN ([id number]), purchasing expeditor MINE MORRELL (Floyd) on 09/15/2023 6:37:42 AM RADIOLOGY RESULTS 09/14/2023 4:58 PM CDT 09/15/2023 6:37 AM CDT Irais Harrison MD ECG ORDERABLES RADIOLOGY RESULTS * Symptomatic Influenza A/B, RSV, & SARS-CoV2 PCR (COVID-19) Nasopharyngeal (09/14/2023 4:51 PM CDT) Influenza A PCR Negative Negative 09/14/2023 6:00 PM CDT [facility] Influenza B PCR Negative Negative 09/14/2023 6:00 PM CDT [facility] RSV PCR Negative Negative 09/14/2023 6:00 PM CDT [facility] SARS CoV2 PCR Negative Negative 09/14/2023 6:00 PM CDT [facility] Comment:NEGATIVE: SARS-CoV-2 (COVID-19) RNA not detected, presumed negative. Swab NASOPHARYNGEAL STRUCTURE / Unknown Non-blood Collection / Unknown 09/14/2023 4:51 PM CDT 09/14/2023 4:57 PM CDT [facility] LABORATORY - 09/14/2023 6:00 PM CDT Testing was performed using the Xpert Xpress CoV2/Flu/RSV Assay on the [employer] GeneXpert Instrument. This test should be ordered for the detection of SARS-CoV-2, influenza, and RSV viruses in individuals who meet clinical and/or epidemiological criteria. Test performance is unknown in asymptomatic patients. This test is for in vitro diagnostic use under the FDA EUA for laboratories certified under CLIA to perform high or moderate complexity testing. This test has not been FDA cleared or approved. A negative result does not rule out the presence of PCR inhibitors in the specimen or target RNA in concentration below the limit of detection for the assay. If only one viral target is positive but coinfection with multiple targets is suspected, the sample should be re-tested with another FDA cleared, approved, or authorized test, if coinfection would change clinical management. This test was validated by the [facility] [employer]. These laboratories are certified under the Clinical Laboratory Improvement Amendments of 1988 (CLIA-88) as qualified to perform high complexity laboratory testing. Purvi Terrell MD LAB - MICRO GENERAL ORDERABLES [facility] Lab [address] Hospital Lab (1st floor, no room number) [place] [address], [facility] documented in this encounter Visit Diagnoses Diagnosis Viral respiratory illness Unspecified viral infection, in conditions classified elsewhere and of unspecified site documented in this encounter Administered Medications Inactive Administered Medications - up to 3 most recent administrations Medication Order MAR Action Action Date Dose Rate Site ibuprofen (ADVIL/MOTRIN) tablet 600 mg 600 mg, Oral, ONCE, On Wed09/14/23 at 1930, For 1 dose, Give with food. $Given 09/14/2023 7:36 PM CDT 600 mg documented in this encounter Active and Recently Administered Medications Times are shown in CDT. Scheduled Medication Order 09/12/2023 09/13/2023 09/14/2023 ibuprofen (ADVIL/MOTRIN) tablet 600 mg (COMPLETED) 600 mg, Oral, ONCE, On Wed09/14/23 at 1930, For 1 dose, Give with food. 1935 ($Given - Provi dayna: Keren Bettencourt RN) documented in this encounter Care Teams Senior Industrial Engineer Relationship Specialty Start Date End Date Gilberto Weathers MD [address] [place] [address] PCP - General Internal Medicine 01/13/16 Finn Harris MD [address] [place] [address] Endocrinology, Diabetes, and Metabolism 12/23/20 Wanda Bautista MD [address] [place] [address] MD Ophthalmology 12/31/20 Gilberto Weathers MD [address] [place] [address] Assigned PCP 01/05/21 Ky Marcos MD [address] [place] [address] Physician Endocrinology, Diabetes, and Metabolism 02/20/22 Ky Marcos MD [address] [place] [address] Assigned Endocrinology Provider 07/04/22 Na Ibarra RPH [address] [place] [address] Pharmacist Pharmacist 12/21/22 documented as of this encounter
--- OUTSIDE RECORDS SUMMARY | 2023-10-31 18:24 | XMS_ITS | Encounter Summary ---
Author Organization [place] Address [address] [place] [address] Care Team Providers Care Credit Union Manager Name Role Phone Gilberto Weathers MD Primary Care Provider [phone] Finn Harris MD Unavailable Shirin Wanda Eubanks MD Unavailable [phone] Gilberto Weathers MD Unavailable [phone] Ky Marcos MD Unavailable Ky Marcos MD Unavailable Na [facility] Unavailable [phone] Encounter Details Date Type Department Care Team (Late st Contact Info) Description 08/12/2023 My[facility] Medical Advice [address] [place] [id number] Sadie Neumann Social History Tobacco Use Types Packs/Day Years [...] Last Indicated Resolved Time Rule Out COVID-19 09/14/2023 09/14/2023 09/14/2023 6:00 PM CDT documented as of this encounter Care Teams Credit Union Manager Relationship Specialty Start Date End Date Gilberto Weathers MD [address] [place] [address] PCP - General Internal Medicine 01/13/16 Finn Harris MD [address] [place] [address] Endocrinology, Diabetes, and Metabolism 12/23/20 Wanda Bautista MD [address] [place] [address] MD Ophthalmology 12/31/20 iGlberto Weathers MD [address] [place] [address] Assigned PCP 01/05/21 Ky Marcos MD [address] [place] [address] Physician Endocrinology, Diabetes, and Metabolism 02/20/22 Ky Marcos MD [address] [place] [address] Assigned Endocrinology Provider 07/04/22 Na Ibarra RPH [address] [place] [address] Pharmacist Pharmacist 12/21/22 documented as of this encounter
--- OUTSIDE RECORDS SUMMARY | 2023-10-31 18:24 | XMS_ITS | Encounter Summary ---
Author Organization [place] Address [address] [place] [address]. [place] [address] Care Team Providers Care Payroll Coordinator Name Role Phone Gilberto Weathers MD Primary Care Provider [phone] Kiki Acevedo [facility] Unavailable Finn Harris MD Unavailable Shirin vailable Wanda Bautista MD Unavailable [phone] Gilberto Weathers MD Unavailable [phone] Finn Harris MD Unavailable Shirin vailable Wanda Bautista MD Unavailable [phone] Mariah Mcmanus [facility] Unavailable [phone] Sarah Castañeda [facility] Unavailable [phone] SchwMariah louis [facility] Unavailable [phone] Ky Marcos MD Unavailable Ky Marcos MD Unavailable Na Ibarra [facility] Unavailable [phone] Encounter Details Date Type Department Care Team (Late st Contact Info) Description 02/04/2021 [facility] [address] [address] Nohelia Harmon Social History Tobacco Use Types Packs/Day Years [...] Out COVID-19 05/12/2021 05/12/2021 05/12/2021 12:08 PM STRUCTURAL DESIGN ENGINEER COVID-19 05/12/2021 05/12/2021 06/02/2021 11:3 9 PM STRUCTURAL DESIGN ENGINEER Rule Out COVID-19 06/10/2021 06/10/2021 06/10/2021 6:57 PM STRUCTURAL DESIGN ENGINEER Rule Out COVID-19 10/28/2021 10/28/2021 10/29/2021 11:41 AM CDT Rule Out COVID-19 09/14/2023 09/14/2023 09/14/2023 6:00 PM CDT documented as of this encounter Care Teams Payroll Coordinator Relationship Specialty Start Date End Date Gilberto Weathers MD [address] [place] [address] PCP - General Internal Medicine 01/13/16 Kiki Acevedo, [facility] [address] [place] [address] Pharmacist Pharmacist 11/08/18 04/29/21 Finn Harris MD [address] [place] [address] Endocrinology, Diabetes, and Metabolism 12/23/20 Wanda Bautista MD [address] [place] [address] Ophthalmology 12/31/20 Gilberto Weathers MD [address] [place] [address] Assigned PCP 01/05/21 Finn Harris MD NO INFO AVAILABLE Assigned Endocrinology Provider 02/09/21 07/03/22 Wanda Bautista MD [address] [place], [place] [address] Assigned Surgical Provider 02/02/21 09/11/22 Mariah Mcmanus, [facility] [address] [facility] [address] [place], [place] [address] Assigned MTM Pharmacist 10/18/2102/06 [facility] [address] [place] [address] [place] [address] Pharmacist 02/03/22 02/23/22 Mariah Mcmanus, [facility] [address] [facility] [address] [place] [address] Assigned MTM Pharmacist 02/18/2202/21 Ky Marcos MD [address] [place] [address] Physician Endocrinology, Diabetes, and Metabolism 02/20/22 Ky Marcos MD [address] [place] [address] Assigned Endocrinology Provider 07/04/22 Na Ibarra [facility] [address] [place] [address] Pharmacist Pharmacist 12/21/22 documented as of this encounter
--- OUTSIDE RECORDS SUMMARY | 2023-10-31 18:24 | XMS_ITS | Clinical Summary ---
Author Organization [facility] Address [address] [place] [id number] Care Team Providers Care Intermediate Manager Name Role Phone Gilberto Weathers MD Primary Care Provider [phone] Finn Harris MD Unavailable Shirin Wanda Eubanks MD Unavailable [phone] Gilberto Weathers MD Unavailable [phone] Ky Marcos MD Unavailable Ky Marcos MD Unavailable Na Ibarra [facility] Unavailable [phone] Allergies No known active allergies Medications Medication Sig Dispensed Refills Start Date End Date Status blood glucose monitoring (CONTOUR NEXT MONITOR W/DEVICE KIT) meter device kitIndications:Unco ntrolled type 2 diabetes mellitus without complication, without long-term current use of insulin To check Blood Glucose one time daily 1 kit 03/14/2019 Active blood glucose (CONTOUR NEXT TEST) test stripIndications:Un controlled type 2 diabetes mellitus without complication, without long-term current use of insulin TEST blood sugar ONCE DAILY 100 strip 03/14/2019 Active blood glucose (HOMERO MICROLET 2) lancing deviceIndications:U ncontrolled type 2 diabetes mellitus without complication, without long-term current use of insulin Lancing device to be used with lancets. 1 each 03/14/2019 Active blood glucose monitoring (HOMERO MICROLET) lancetsIndications: Uncontrolled type 2 diabetes mellitus without complication, without long-term current use of insulin Use to test blood sugar One times daily. 100 each 03/14/2019 Active alcohol swab prep padsIndications:Unc ontrolled type 2 diabetes mellitus without complication, without long-term current use of insulin Use to swab area of injection/mendez as directed. 100 each 03/14/2019 Active fluticasone (FLONASE) 50 MCG/ACT nasal sprayIndications:Co ngestion of paranasal sinus [place] 1-2 sprays into both nostrils daily 16 g 3 12/16/2020 Active omeprazole (PRILOSEC) [address] capsuleIndications: Epigastric pain Take 1 capsule (20 mg) by mouth daily 30 capsule 3 12/16/2020 Active glucose (BD GLUCOSE) 4 g chewable tabletIndications:T ype 1 diabetes mellitus with other specified complication (H) Take 3 tablets by mouth daily as needed for low blood sugar 30 tablet 11 12/16/2020 Active ibuprofen (ADVIL/MOTRIN) 600 MG tabletIndications:P aronychia of finger of right hand Take 1 tablet (600 mg) by mouth every 6 hours as needed 20 tablet 01/13/2021 Active polyethylene glycol (MIRALAX) 17 GM/Dose powderIndications:C hronic idiopathic constipation Take 17 g by mouth daily as needed for constipation 02/11/2021 Active Continuous Blood Gluc Intermediate Manager (FREESTYLE JONI 2 READER) DEVIIndications:Typ e 1 diabetes mellitus without complication (H) 1 each daily 1 each 12/03/2021 Active psyllium (METAMUCIL/KONSYL) 58.6 % powderIndications:C hronic idiopathic constipation Take 18 g (1 Tablespoonful) by mouth daily 283 g 1 02/17/2022 Active insulin aspart (NOVOLOG PEN) 100 UNIT/ML penIndications:Type 2 diabetes mellitus with hyperglycemia, with long-term current use of insulin (H) Take 4 units before breakfast, 8 units before lunch and 8 units before supper Take 1/2 doses if blood sugars are 80-100 Hold the dose if blood sugars are less than 80. Max dose 20 units daily 15 mL 3 02/18/2022 Active Continuous Blood Gluc Sensor (FREESTYLE JONI 2 SENSOR) MISCIndications:Typ e 1 diabetes mellitus without complication (H) 1 each every 14 days 6 each 3 06/16/2022 Active insulin pen needle (BD AUTOSHIELD DUO) 30G X 5 MMIndications:Type 1 diabetes mellitus with other specified complication (H) Use 1-4 pen needles daily or as directed. 400 each 11 06/16/2022 Active insulin lispro (HUMALOG KWIKPEN) 100 UNIT/ML (1 unit dial) KWIKPENIndications: Type 2 diabetes mellitus with hyperglycemia, with long-term current use of insulin (H) PLEASE SEE ATTACHED FOR DETAILED DIRECTIONS 15 mL 1 05/25/2023 Active Continuous Blood Gluc Sensor (FREESTYLE JONI 3 SENSOR) MISCIndications:Typ e 2 diabetes mellitus with hyperglycemia, with long-term current use of insulin (H) 1 Act 4 times daily 2 each 3 06/04/2023 Active Continuous Blood Gluc Intermediate Manager (FREESTYLE JONI 3 READER) DEVIIndications:Typ e 2 diabetes mellitus with hyperglycemia, with long-term current use of insulin (H) 1 Act 4 times daily 2 each 3 06/04/2023 Active insulin glargine (LANTUS PEN) 100 UNIT/ML penIndications:Type 2 diabetes mellitus with hyperglycemia, with long-term current use of insulin (H) Inject 26 Units Subcutaneous at bedtime 30 mL 3 06/04/2023 Active atorvastatin (LIPITOR) 20 MG tabletIndications:H yperlipidemia LDL goal <100 Take 1 tablet (20 mg) by mouth daily 90 tablet 3 06/04/2023 Active metFORMIN (GLUCOPHAGE) 500 MG tabletIndications:T ype 2 diabetes mellitus with hyperglycemia, with long-term current use of insulin (H) Take 1 tablet (500 mg) by mouth 2 times daily (with meals) 180 tablet 1 06/04/2023 Active Continuous Blood Gluc Sensor (DEXCOM G7 SENSOR) MISCIndications:Typ e 1 diabetes mellitus with other specified complication (H) 1 each every 10 days Change sensor every 10 days 9 each 5 08/09/2023 Active Active Problems Problem Noted Date Diagnosed Date Type 1 diabetes mellitus with other specified co mplication 07/01/2022 Chronic idiopathic constipation 12/30/2020 Slow transit constipation 12/09/2020 Tobacco use disorder 11/03/2018 Episodic cluster headache, not intractable 01/12 Non morbid obesity due to excess calories 2015 Chest pain 01/31/2015 Sinus tachycardia 10/15/2014 Resolved Problems Problem Noted Date Diagnosed Date Resolved Date Flu-like symptoms 12/09/2020 06/04/2023 Diabetes mellitus, type 2 12/02/2019 Uncontrolled type 2 diabetes mellitus without complication, without long-term current use of insulin 12/10/2016 07/01/2022 Overview: IMO Regulatory Load FEB 2020 Diabetes mellitus type 2, controlled 12/10/2016 Encounters Date Type Department Care Team Description 09/14/2023 7:19 PM CDT - 09/14/2023 9:18 PM CDT Emergency [facility] Emergency Dept [address] [place] [address] Purvi Terrell MD Viral respiratory illness Discharge Disposition: Home or Self Care 09/14/2023 Travel 08/31/[address] [facility] [address] [place] [phone] Gilberto Weathers MD Prior Auth - Medication (Continuous Blood Gluc Sensor (DEXCOM G7 SENSOR) MISC - PA not needed/Duplicate) 08/18/[address] [facility] [address] [place] [phone] Gilberto Weathers MD Prior Auth - Medication (Continuous Blood Gluc Intermediate Manager (DEXCOM G7 STONECUTTER) BERT - Approved) 08/12/[address] [facility] [address] [facility] [address] [place] [phone] Sadie Neumann 08/12/[address] [facility] [address] [place] [phone] Gilberto Weathers MD Refill Request (Ozempic) 08/09/[address] [facility] [address] [place] [phone] Gilberto Weathers MD Patient Request from Last 3 Months Immunizations Name Administration Dates Next Due Hepatitis B, Peds 07/03/1999,12/17/1998,08/15/18 99 MMR 12/17/1998,08/15/1998 Meningococcal (Menomune??) 12/02/2001 OPV, trivalent, live 07/03/1999,12/17/1998,08/15 TDAP (Adacel,Boostrix) 07/03/1999 TDAP Vaccine (Adacel) 03/17/2016 Td (Adult), Adsorbed 07/03/1999,12/17/1998 Typhoid IM 12/02/2001 Varicella 12/17/1998,08/15/1998 Family History Medical History Relation Comments Hypertension Father Glaucoma Mother Relation Status Comments Father Alive Mother Alive Social History Tobacco Use Types Packs/Day Years Used Date Smoking Tobacco: Every Day Cigarettes 0.5 5 Passive Smoke Exposure: Current Smokeless Tobacco: Never Tobacco Cessation:Ready to Q uit: No; Counseling Given: No Alcohol Use Standard Drinks/Week Comments [...] Orientation Straight 09/01/2021 8: 47 AM CDT Last Filed Vital Signs Vital [...] Mass Index 26.54 09/14/2023 4:49 PM CDT Plan of Treatment Health Maintenance Due Date Last Done Comments DIABETIC FOOT EXAM 1984 Pneumococcal Vaccine: Pediatrics (0 to 5 Years) and At-Risk Patients (6 to 64 Years) (1 of 2 - PCV) 1990 HEPATITIS C SCREENING 2002 YEARLY PREVENTIVE VISIT 11/04/2019 11/03/2018, 01/12 LIPID 12/30/2021 12/30/2020, 10/22, 06/01/2017, Additional history exists A1C 03/03/2022 09/01/2021, 11/22, 11/04/2018, Additional history exists EYE EXAM 03/10/2022 03/10/2021, 02/21, 01/28/2021, Additional history exists MICROALBUMIN 09/01/2022 09/01/2021, 01/2018, 01/13/2016 COVID-19 Vaccine ( season) 2023 08/27/2021, 08/24/2020 INFLUENZA VACCINE (Season Ended) 2024 ANNUAL REVIEW OF HM ORDERS 06/04/2024 06/04/2023, NICOTINE/TOBACCO CESSATION COUNSELING Q 1 YR 06/04/2024 06/04/2023, 09/01/2021, 02/11/2021, Additional history exists BMP 09/13/2024 09/14/2023, 10/22, 06/01/2017, Additional history exists ADVANCE CARE PLANNING 12/10/2025 12/10/2020 (Decline d) DTAP/TDAP/TD IMMUNIZATION (4 - Td or Tdap) 03/17/2026 03/17/2016, 07/03/1999, 07/03/1999, Additional history exists HEPATITIS B IMMUNIZATION Completed 2 000, 12/17/1998, 08/15/1998 IPV IMMUNIZATION Completed 07/03/1999, , 08/15/1998 MENINGITIS IMMUNIZATION Aged Out 12/02/2001 No l onger eligible based on patient's age to complete this topic PHQ-2 (once per calendar year) Completed 06/04/2023, 02/17/2022, 03/10/2021, Additional history exists HIV SCREENING Discontinued HPV IMMUNIZATION Aged Out No longer e ligible based on patient's age to complete this topic RSV MONOCLONAL ANTIBODY Aged Out No l onger eligible based on patient's age to complete this topic Procedures Procedure Name Priority Date/Time Associated Diagnosis Comments XR CHEST 2 VIEWS STAT 09/14/2023 5:49 PM CDT CBC WITH PLATELETS & DIFFERENTIAL STAT 09/14/2023 5:05 PM CDT D DIMER QUANTITATIVE STAT 09/14/2023 5:05 PM CDT CBC WITH PLATELETS AND DIFFERENTIAL STAT 09/14/2023 5:05 PM CDT EXTRA RED TOP TUBE STAT 09/14/2023 5: 05 PM CDT EXTRA BLUE TOP TUBE STAT 09/14/2023 5 :05 PM CDT TROPONIN T, HIGH SENSITIVITY STAT 09/14/2023 5:05 PM CDT BASIC METABOLIC PANEL STAT 09/14/2023 5:05 PM CDT EXTRA TUBE STAT 09/14/2023 5:05 PM CDT EKG 12-LEAD, TRACING ONLY STAT 09/14/2023 4:58 PM CDT INFLUENZA A/B, RSV, & SARS-COV2 PCR STAT 09/14/2023 4:51 PM CDT ALBUMIN RANDOM URINE QUANTITATIVE Routine 09/01/2021 10:14 AM CDT Type 2 diabetes mellitus with hyperglycemia, with long-term current use of insulin (H) HEMOGLOBIN A1C Routine 09/01/2021 10:11 AM CDT Type 2 diabetes mellitus with hyperglycemia, with long-term current use of insulin (H) LIPID REFLEX TO DIRECT LDL PANEL Routine 12/30/2020 2:02 PM CDT Type 2 diabetes mellitus with hyperglycemia, with long-term current use of insulin (H) from Last 3 Months or Most Recently Relevant to Health Maintenance Results * Chest XR, PA & LAT (09/14/2023 5:49 PM CDT) Anatomical Region Laterality Modality Chest Computed Radiogr aphy 09/14/2023 5:49 PM CDT Impressions 09/14/2023 5:51 PM CDT IMPRESSION: Negative chest. Narrative 09/14/2023 5:51 PM CDT EXAM: XR CHEST 2 VIEWS LOCATION: [facility] DATE: 09/14/2023 INDICATION: chest pain, dyspnea COMPARISON: None. Procedure Note Uli Orellana MD - 09/14/2023 EXAM: XR CHEST 2 VIEWS LOCATION: [facility] DATE: 09/14/2023 INDICATION: chest pain, dyspnea COMPARISON: None. IMPRESSION: Negative chest. Terrence Barton MD IMG DIAGNOSTIC IM AGING ORDERABLES * Extra Red Top Tube (09/14/2023 5:05 PM CDT) Hold Specimen [facility] 09/14/2023 6:32 PM CDT LABORATORY Blood STRUCTURE OF LEFT UPPER LIMB / Unknown Venipuncture / Unknown 09/14/2023 5:05 PM CDT 09/14/2023 5:18 PM CDT Purvi Terrell MD LAB - BLOOD ORDERABL ES LABORATORY [facility] [address] Lab (1st floor, no room number) [place] [address] * Extra Blue Top Tube (09/14/2023 5:05 PM CDT) Hold Specimen [facility] 09/14/2023 6:32 PM CDT [facility] LABORATORY Blood STRUCTURE OF LEFT UPPER LIMB / Unknown Venipuncture / Unknown 09/14/2023 5:05 PM CDT 09/14/2023 5:18 PM CDT Purvi Terrell MD LAB - BLOOD ORDERABL ES [facility] LABORATORY [facility] [address] Lab (1st floor, no room number) [place] [address] * CBC with platelets and differential [...] MD LAB - BLOOD ORDERABL ES LABORATORY [facility] [address] [facility] Lab (1st floor, no room number) [place] [address], [facility] * Troponin T, High Sensitivity (now) [...] - BLOOD ORDERABL ES Performing Organization Address [facility] Co de Phone Number LABORATORY [facility] [address] Lab (1st floor, no room number) [address] [place] [address] * D dimer quantitative (09/14/2023 5:05 PM CDT) D-Dimer Quantitative <0.27 0.00 - 0.50 ug/mL FEU 09/14/2023 7:41 PM CDT LABORATORY Blood STRUCTURE OF LEFT UPPER LIMB / Unknown Venipuncture / Unknown 09/14/2023 5:05 PM CDT 09/14/2023 5:18 PM CDT Narrative LABORATORY - 09/14/2023 7:41 PM CDT This D-dimer assay is intended for use in conjunction with a clinical pretest probability assessment model to exclude pulmonary embolism (PE) and deep venous thrombosis (DVT) in outpatients suspected of PE or DVT. The cut-off value is 0.50 ug/mL FEU. Purvi Terrell MD LAB - BLOOD ORDERABL ES Performing Organization Address [facility]/ZIP Co de Phone Number LABORATORY [facility] [address] Lab (1st floor, no room number) [place] [address] [place] [address] * (ABNORMAL) Basic metabolic panel (BMP) (09/14/2023 5:05 PM CDT) Sodium 130(L) 135 - 145 mmol/L 09/14/2023 5:39 PM CDT [facility] LABORATORY Comment:Reference intervals for this test were updated on 02/16/2023 to more accurately reflect our healthy population. There may be differences in the flagging of prior results with similar values performed with this method. Interpretation of those prior results can be made in the context of the updated reference intervals. Potassium 4.4 3.4 - 5.3 mmol/L 09/14/2023 5:39 PM CDT [facility] LABORATORY Chloride 97(L) 98 - 107 mmol/L 09/14/2023 5:39 PM CDT [facility] LABORATORY Carbon Dioxide (CO2) 25 22 - 29 mmol/L 09/14/2023 5:39 PM CDT LABORATORY Anion Gap 8 7 - 15 mmol/L 09/14/2023 5:39 PM CDT LABORATORY Urea Nitrogen 12.2 6.0 - 20.0 mg/dL 09/14/2023 5:39 PM CDT [facility] LABORATORY Creatinine 0.72 0.67 - 1.17 mg/dL 09/14/2023 5:39 PM CDT [facility] LABORATORY GFR Estimate >90 >60 mL/min/1. 73m2 09/14/2023 5:39 PM CDT LABORATORY Calcium 9.1 8.6 - 10.0 mg/dL 09/14/2023 5:39 PM CDT LABORATORY Glucose 357(H) 70 - 99 mg/dL 09/14/2023 5:39 PM CDT LABORATORY Blood STRUCTURE OF LEFT UPPER LIMB / Unknown Venipuncture / Unknown 09/14/2023 5:05 PM CDT 09/14/2023 5:18 PM CDT Purvi Terrell MD LAB - BLOOD ORDERABL ES RH LABORATORY [facility] [address] Lab (1st floor, no room number) [place] [address], [facility] * EKG 12-lead, tracing only (09/14/2023 4:58 PM CDT) Systolic Blood Pressure mmHg RADIOLOGY RESULTS Diastolic Blood Pressure mmHg RADIOLOGY RESULTS Ventricular Rate 84 BPM RAD IOLOGY RESULTS Atrial Rate 84 BPM RADIOLOG Y RESULTS CA Interval 166 ms RADIOLOG Y RESULTS QRS Duration 96 ms RADIOLO GY RESULTS QT 350 ms RADIOLOGY RESULTS QTc 413 ms RADIOLOGY RESULTS P [place] 22 degrees RADIOLOGY RESULTS R AXIS 65 degrees RADIOLOGY RESULTS T [place] 41 degrees RADIOLOGY RESULTS Interpretation ECG Sinus rhythm Nonspecific ST abnormality Abnormal ECG When compared with ECG of 21-APR-2015 00:35, No significant change was found Confirmed by - EMERGENCY ROOM, PHYSICIAN ([id number]), book editor MINE MORRELL ([id number]) on 09/15/2023 6:37:42 AM RADIOLOGY RESULTS 09/14/2023 4:58 PM CDT 09/15/2023 6:37 AM CDT Irais Harrison MD ECG ORDERABLES RADIOLOGY RESULTS * Symptomatic Influenza A/B, RSV, & SARS-CoV2 PCR (COVID-19) Nasopharyngeal (09/14/2023 4:51 PM CDT) Pathologist [facility] Influenza A PCR Negative Negative 09/14/2023 6:00 PM CDT LABORATORY Influenza B PCR Negative Negative 09/14/2023 6:00 PM CDT LABORATORY RSV PCR Negative Negative 09/14/2023 6:00 PM CDT LABORATORY SARS CoV2 PCR Negative Negative 09/14/2023 6:00 PM CDT LABORATORY Comment:NEGATIVE: SARS-CoV-2 (COVID-19) RNA not detected, presumed negative. Swab NASOPHARYNGEAL STRUCTURE / Unknown Non-blood Collection / Unknown 09/14/2023 4:51 PM CDT 09/14/2023 4:57 PM CDT Narrative [facility] LABORATORY - 09/14/2023 6:00 PM CDT Testing was performed using the Xpert Xpress CoV2/Flu/RSV Assay on the [employer] GeneXpert Instrument. This test should be ordered [...] management. This test was validated by the [facility]. These laboratories are certified under the Clinical Laboratory Improvement Amendments of 1988 (CLIA-88) as qualified to perform high complexity laboratory testing. Purvi Terrell MD LAB - MICRO GENERAL ORDERABLES [facility] [address] [facility] Lab (1st floor, no room number) [place] [address], [facility] * Albumin Random Urine Quantitative with Creat Ratio (09/01/2021 10:14 AM CDT) Creatinine Urine mg/dL 154 mg/dL 09/02/2021 12:05 PM CDT [facility] LABORATORY Albumin Urine mg/L <5 mg/L 09/02/2021 12:05 PM CDT [facility]X LABORATORY Albumin Urine mg/g Cr 09/02/2021 12:05 PM CDT OX LABORATORY Comment:Unable to calculate: ??Urine creatinine or albumin value below detectable level Urine MID-STREAM URINE SPECIMEN / Unknown Non-blood Collection / Unknown 09/01/2021 10:14 AM CDT 09/01/2021 10:14 AM CDT Gilberto Weathers MD LAB - URINE ORDERAB LES LABORATORY [facility] [address] Lab (no room number, 1st floor of clinic) [place] [address], [place] [phone] * (ABNORMAL) Hemoglobin A1c (09/01/2021 10:11 AM CDT) Hemoglobin A1C 10.5(H) 0.0 - 5.6 % 09/01/2021 10:25 AM CDT [facility] LABORATORY Comment: Reviewed, ok with previous. Normal <5.7% Prediabetes 5.7-6.4% ?? Diabetes 6.5% or higher Note: Adopted from ADA consensus guidelines. Blood VENOUS BLOOD / Unknown Venipuncture / Unknown 09/01/2021 10:11 AM CDT 09/01/2021 10:11 AM CDT Gilberto Weathers MD LAB - BLOOD ORDERAB LES RI LABORATORY [facility] [address], [address] [place] [address], [facility] [phone] * (ABNORMAL) Lipid panel reflex to direct LDL Fasting (12/30/2020 2:02 PM CDT) Cholesterol 195 <200 mg/dL 12/31/2020 7:56 AM CDT OX LABORATORY Comment: Age 0-19 years Desirable: <170 mg/dL [...] high: ?? Greater than or equal to 500 mg/dL Direct Measure HDL 51 >=40 mg/dL 12/31/2020 7:56 AM CDT OX LABORATORY Comment: 0-19 years: ? Greater than or equal to 45 mg/dL Low: Less than 40 mg/dL Borderline low: 40-44 mg/dL 20 years and older: Female: Greater than or equal to 50 mg/dL Male: ?? Greater than or equal to 40 mg/dL LDL Cholesterol Calculated 126(H) <=100 mg/dL 12/31/2020 7:56 AM CDT OX LABORATORY Comment: Age 0-19 years: Desirable: 0-110 mg/dL Borderline high: 110-129 mg/dL High: >= 130 mg/dL Age 20 years and older: Desirable: <100mg/dL Above desirable: 100-129 mg/dL Borderline high: 130-159 mg/dL High: 160-189 mg/dL Very high: >= 190 mg/dL Non HDL Cholesterol 144(H) <130 mg/dL 12/31/2020 7:56 AM CDT OX LABORATORY Comment: 0-19 years: Desirable: ? Less than 120 mg/dL Borderline high: ?? 120-144 mg/dL High: ? Greater than or equal to 145 mg/dL 20 years and older: Desirable: ? 130 mg/dL Above Desirable: 130-159 mg/dL Borderline high: ?? 160-189 mg/dL High: ? 190-219 mg/dL Very high: ?? Greater than or equal to 220 mg/dL Patient Fasting > 8hrs? Yes 12/31/2020 7:56 AM CDT OX LABORATORY Blood BLOOD SPECIMEN / Unknown Venipuncture / Unknown 12/30/2020 2:02 PM CDT 12/30/2020 2:03 PM CDT Gilberto Weathers MD LAB - BLOOD ORDERAB LES OX LABORATORY [facility] [address] Lab (no room number, 1st floor of clinic) [place] [address] [phone] from Last 3 Months or Most Recently Relevant to Health Maintenance Advance Directives For more information, please contact: [phone] * Full Code (Latest Code Status on File) Date Activated Date Inactivated Comments 02/01/2015 9:38 AM 03/11/2019 3:00 AM * Full Code Date Activated Date Inactivated Comments 01/31/2015 6:45 PM 02/01/2015 9:38 AM * Full Code Date Activated Date Inactivated Comments 10/15/2014 9:34 AM 01/31/2015 6:45 PM * Full Code Date Activated Date Inactivated Comments 10/14/2014 4:50 PM 10/15/2014 9:34 AM Care Teams Intermediate Manager Relationship Specialty Start Date End Date Gilberto Weathers MD [address] [place] [address] PCP - General Internal Medicine 01/13/16 Finn Harris MD [address] [place] [place] [address] Endocrinology, Diabetes, and Metabolism 12/23/20 Wanda Bautista MD [address] [place] [address] MD Ophthalmology 12/31/20 Gilberto Weathers MD [address] [place] [address] Assigned PCP 01/05/21 Ky Marcos MD [address] [place] [address] Physician Endocrinology, Diabetes, and Metabolism 02/20/22 Ky Marcos MD [address] [place] [address] Assigned Endocrinology Provider 07/04/22 Na Ibarra RPH [address] [place] [address] Pharmacist Pharmacist 12/21/22
--- OUTSIDE RECORDS SUMMARY | 2023-10-31 18:24 | XMS_ITS | Encounter Summary ---
Author Organization [place] Address [address] [place] [address] Care Team Providers Care Medical Assistant Internal Medicine Name Role Phone Gilberto Weathers MD Primary Care Provider [phone] Kiki Acevedo [facility] Unavailable [phone] Nancy Martin STEEL WHEEL ENGRAVER Unavailable [phone] Du Serrano MD Unavailable [phone] Nancy Martin STEEL WHEEL ENGRAVER Unavailable [phone] Sheila Haney MD Unavailable Finn Harris MD Unavailable Shirin vailable Wanda Bautista MD Unavailable [phone] Gilberto Weathers MD Unavailable [phone] Finn Harris MD Unavailable Shirin vailable Wanda Bautista MD Unavailable [phone] Mariah Mcmanus [facility] Unavailable [phone] Sarah Castañeda [facility] Unavailable Mariah Mcmanus [facility] Unavailable Ky Marcos MD Unavailable Ky Marcos MD Unavailable Na Ibarra [facility] Unavailable [phone] Reason for Visit * Reason Onset Date Comments Forms 03/27/2019 Work forms Encounter Details Date Type Department Care Team (Late st Contact Info) Description 03/27/2019 [facility] [address] [place] [address] Gilberto Weathers MD [address] [place] [address] Forms (Work forms) Social History Tobacco Use Types Packs/Day Years Used Date Smoking Tobacco: Every Day Cigarettes 0.3 5 Smokeless Tobacco: Never Alcohol Use Standard Drinks/Week Comments No 0 (1 standard drink = 0.6 oz pur e alcohol) PHQ-2 Answer Date Recorded PHQ-2 Score 0 03/16/2019 Sex and Gender Information Value Date Recorded Sex Assigned at Male 09/01/2021 8:47 AM CDT Gender Identity Male 09/01/2021 8:47 AM CDT Sexual Orientation Straight 09/01/2021 8: 47 AM CDT documented as of this encounter Miscellaneous Notes * Telephone Encounter - Mervat Miranda RN - 03/27/2019 3:55 PM LAST CHALKER See his ULTRA Testing message. He missed his appt today. CHALKER documented in this encounter Plan of Treatment Not on file documented as of this encounter Visit Diagnoses Not on filedocumented in this encounter Additional Health Concerns Infection Onset Date Last Indicated Resolved Time Rule Out COVID-19 05/12/2021 05/12/2021 05/12/2021 12:08 PM LAST CHALKER COVID-19 05/12/2021 05/12/2021 06/02/2021 11:3 9 PM LAST CHALKER Rule Out COVID-19 06/10/2021 06/10/2021 06/10/2021 6:57 PM LAST CHALKER Rule Out COVID-19 10/28/2021 10/28/2021 10/29/2021 11:41 AM CDT Rule Out COVID-19 09/14/2023 09/14/2023 09/14/2023 6:00 PM CDT documented as of this encounter Care Teams Medical Assistant Internal Medicine Relationship Specialty Start Date End Date Gilberto Weathers MD [address] [place] [address] PCP - General Internal Medicine 01/13/16 Kiki Acevedo [facility] [address] [address] Pharmacist Pharmacist 11/08/18 04/29/21 Nancy Martin STEEL WHEEL ENGRAVER [address] [place] [address] Assigned PCP 03/19/19 03/16/20 Du Serrano MD [address] [place] [address] Assigned PCP 03/17/20 03/30/20 Nancy Martin NP [address] [place] [address] Assigned PCP 03/31/20 12/14/20 Sheila Haney MD [address] [place] [address] Assigned PCP 12/15/20 01/04/21 Finn Harris MD [address] [place] [address] Endocrinology, Diabetes, and Metabolism 12/23/20 Wanda Bautista MD [address] [place] [address] Ophthalmology 12/31/20 Gilberto Weathers MD [address] [place] [address] Assigned PCP 01/05/21 Finn Harris MD NO INFO AVAILABLE Assigned Endocrinology Provider 02/09/21 07/03/22 Wanda Bautista MD [address] [place] [address] Assigned Surgical Provider 02/02/21 09/11/22 Mariah Mcmanus, [facility] [address] [address] Assigned MTM Pharmacist 10/18/2102/06 Sarah Castañeda [facility] [address] [address] Pharmacist 02/03/22 02/23/22 Mairah Mcmanus, [facility] [address] [address] Assigned MTM Pharmacist 02/18/2202/21 Ky Marcos MD [address] [place] [address] Physician Endocrinology, Diabetes, and Metabolism 02/20/22 Ky Marcos MD [address] [place] [address] Assigned Endocrinology Provider 07/04/22 Na Ibarra [facility] [address] [place] [address] Pharmacist Pharmacist 12/21/22 documented as of this encounter
--- OUTSIDE RECORDS SUMMARY | 2023-10-31 18:24 | XMS_ITS | Referral Summary ---
Author Organization [place] Address [address] [place] [address] Care Team Providers Care Take Away Attendant Name Role Phone Gilberto Weathers MD Primary Care Provider [phone] Finn Harris MD Unavailable Shirin Wanda Eubanks MD Unavailable [phone] Gilberto Weathers MD Unavailable [phone] Ky Marcos MD Unavailable Ky Marcos MD Unavailable Na Ibarra [facility] Unavailable [phone] Encounters Date Type Department Care Team Description 09/14/2023 Travel 09/14/2023 7:19 PM CDT - 09/14/2023 9:18 PM CDT Emergency [facility] Emergency Dept [address] [place] [id number] Purvi Terrell MD Viral respiratory illness Discharge Disposition: Home or Self Care 08/31/2023 Telephone [facility] [address] [facility] [address] [place] [address] Gilberto Weathers MD Prior Auth - Medication (Continuous Blood Gluc Sensor (DEXCOM G7 SENSOR) MISC - PA not needed/Duplicate) 08/18/2023 Telephone [facility] [address] [facility] [address] [place] [phone] Gilberto Weathers MD Prior Auth - Medication (Continuous Blood Gluc Library Customer Service Clerk (DEXCOM G7 AUTOMOBILE PARKER) BERT - Approved) 08/12/2023 MyC Medical Advice [facility] [address] [place] [address] Sadie Neumann 08/12/2023 Telephone [facility] [address] [facility] [address] [place] [address] Gilberto Weathers MD Refill Request (Ozempic) 08/09/2023 Telephone [facility] [address] [facility] [address] [place] [address] Gilberto Weathers MD Patient Request from Last 3 Months Allergies No known active allergies Medications Medication [...] MCG/ACT nasal sprayIndications:Co ngestion of paranasal sinus Silver Star 1-2 sprays into both nostrils daily 16 [...] for constipation 02/11/2021 Active Continuous Blood Gluc Library Customer Service Clerk (FREESTYLE JONI 2 READER) DEVIIndications:Typ e 1 [...] needles daily or as directed. 400 each 06/16/2022 Active insulin lispro (HUMALOG KWIKPEN) 100 [...] each 3 06/04/2023 Active Continuous Blood Gluc Library Customer Service Clerk (FREESTYLE JONI 3 READER) DEVIIndications:Typ e 2 [...] 2020 Diabetes mellitus type 2, controlled 12/10/2016 Immunizations Name Administration Dates Next Due Hepatitis B, Peds 07/03/1999,12/17/1998,08/15/18 99 MMR 12/17/1998,08/15/1998 Meningococcal (Menomune??) 12/02/2001 OPV, trivalent, live 07/03/1999,12/17/1998,08/15 TDAP (Adacel,Boostrix) 07/03/1999 TDAP Vaccine (Adacel) 03/17/2016 Td (Adult), Adsorbed 07/03/1999,12/17/1998 Typhoid IM 12/02/2001 Varicella 12/17/1998,08/15/1998 Social History Tobacco Use Types Packs/Day Years [...] 09/14/2023 4:49 PM CDT Plan of Treatment Not on file Procedures Procedure Name Priority Date/Time Associated Diagnosis [...] CDT EXAM: XR CHEST 2 VIEWS LOCATION: [facility] DATE: 09/14/2023 INDICATION: chest pain, dyspnea COMPARISON: None. Procedure Note Uli Orellana MD - 09/14/2023 EXAM: XR CHEST 2 VIEWS LOCATION: [facility] DATE: 09/14/2023 INDICATION: chest pain, dyspnea COMPARISON: None. IMPRESSION: Negative chest. Terrence Barton MD IMG DIAGNOSTIC IM AGING ORDERABLES * Extra Red Top Tube (09/14/2023 5:05 PM CDT) Hold Specimen [facility] 09/14/2023 6:32 PM CDT LABORATORY Blood STRUCTURE OF LEFT UPPER LIMB / Unknown Venipuncture / Unknown 09/14/2023 5:05 PM CDT 09/14/2023 5:18 PM CDT Purvi Terrell MD LAB - BLOOD ORDERABL ES [facility] Acute Care Lab [address] Lab (1st floor, no room number) [place] [address], [facility] * Extra Blue Top Tube (09/14/2023 5:05 PM CDT) Hold Specimen [facility] 09/14/2023 6:32 PM CDT RH LABORATORY Blood STRUCTURE OF LEFT UPPER LIMB / Unknown Venipuncture / Unknown 09/14/2023 5:05 PM CDT 09/14/2023 5:18 PM CDT Purvi Terrell MD LAB - BLOOD ORDERABL ES RH LABORATORY [facility] Acute Care Lab [address] Lab (1st floor, no room number) [place] [address] * CBC with platelets and [...] MD LAB - BLOOD ORDERABL ES LABORATORY [facility] Acute Care Lab [address] Lab (1st floor, no room number) [place] [address], [facility] * Troponin T, High Sensitivity (now) (09/14/2023 [...] - BLOOD ORDERABL ES Performing Organization Address [facility]/ZIP Co de Phone Number LABORATORY [facility] Lab [address] Lab (1st floor, no room number) [address] [place] [address] * D dimer quantitative (09/14/2023 5:05 PM CDT) Pathologist [facility] D-Dimer Quantitative <0.27 0.00 - 0.50 ug/mL [...] MD LAB - BLOOD ORDERABL ES LABORATORY [facility] Lab [address] Lab (1st floor, no room number) [place] [id number] [place] [address] * (ABNORMAL) Basic metabolic panel (BMP) (09/14/2023 5:05 PM CDT) Pathologist [facility] Sodium 130(L) 135 - 145 mmol/L 09/14/2023 [...] - 29 mmol/L 09/14/2023 5:39 PM CDT RH LABORATORY Anion Gap 8 7 - 15 mmol/L 09/14/2023 5:39 PM CDT RH LABORATORY Urea Nitrogen 12.2 6.0 - 20.0 [...] MD LAB - BLOOD ORDERABL ES LABORATORY [facility] Acute Care Lab [address] Lab (1st floor, no room number) [place] [address], [facility] * EKG 12-lead, tracing only (09/14/2023 4:58 PM CDT) Systolic Blood Pressure mmHg RADIOLOGY RESULTS Diastolic Blood Pressure mmHg RADIOLOGY RESULTS Ventricular Rate 84 BPM RAD IOLOGY RESULTS Atrial Rate 84 BPM RADIOLOG Y RESULTS [place] Interval 166 ms RADIOLOG Y RESULTS QRS Duration 96 ms RADIOLO GY RESULTS QT 350 ms RADIOLOGY RESULTS QTc 413 ms RADIOLOGY RESULTS P Hayti 22 degrees RADIOLOGY RESULTS R AXIS 65 degrees RADIOLOGY RESULTS T Hayti 41 degrees RADIOLOGY RESULTS Interpretation ECG Sinus rhythm Nonspecific ST abnormality Abnormal ECG When compared with ECG of 21-APR-2015 00:35, No significant change was found Confirmed by - EMERGENCY ROOM, PHYSICIAN ([id number]), rewrite editor MINE MORRELL ([id number]) on 09/15/2023 6:37:42 AM RADIOLOGY RESULTS 09/14/2023 4:58 PM CDT 09/15/2023 6:37 AM CDT Irais Harrison MD ECG ORDERABLES RADIOLOGY RESULTS * Symptomatic Influenza A/B, RSV, & SARS-CoV2 PCR (COVID-19) Nasopharyngeal (09/14/2023 4:51 PM CDT) Pathologist [facility] Influenza A PCR Negative Negative 09/14/2023 6:00 [...] 4:51 PM CDT 09/14/2023 4:57 PM CDT [facility] LABORATORY - 09/14/2023 6:00 PM CDT Testing was performed using the Xpert Xpress CoV2/Flu/RSV Assay on the [employer] GeneXpert Instrument. This test should be ordered [...] management. This test was validated by the [facility]. These laboratories are certified under the Clinical Laboratory Improvement Amendments of 1988 (CLIA-88) as qualified to perform high complexity laboratory testing. Purvi Terrell MD LAB - MICRO GENERAL ORDERABLES Performing Organization Address City/[facility]/ZIP Co de Phone Number LABORATORY [facility] Acute Care Lab [address] Lab (1st floor, no room number) [place] [address], [facility] * Albumin Random Urine Quantitative with Creat [...] Weathers MD LAB - URINE ORDERAB LES Performing Organization Address [facility]/ZIP Co de Phone Number OX LABORATORY [facility] [address] Lab (no room number, 1st floor of clinic) [place] [address], [facility] [phone] * (ABNORMAL) Hemoglobin A1c (09/01/2021 10:11 AM [...] Weathers MD LAB - BLOOD ORDERAB LES [facility] [address] [place] Lab, [address] [place] [address], [facility] [phone] * (ABNORMAL) Lipid panel reflex to direct [...] LAB - BLOOD ORDERAB LES OX LABORATORY [facility] Lab [address] Lab (no room number, 1st floor of clinic) [place] [address], [facility] [phone] from Last 3 Months or Most Recently Relevant to Health Maintenance Advance Directives For more information, please contact: [phone] * Full Code (Latest Code Status on File) Date Activated Date Inactivated Comments 02/01/2015 9:38 AM 03/11/2019 3:00 AM * Full Code Date Activated Date Inactivated Comments 01/31/2015 6:45 PM 02/01/2015 9:38 AM * Full Code Date Activated Date Inactivated Comments 10/15/2014 9:34 AM 01/31/2015 6:45 PM * Full Code Date Activated Date Inactivated Comments 10/14/2014 4:50 PM 10/15/2014 9:34 AM Care Teams Take Away Attendant Relationship Specialty Start Date End Date Gilberto Weathers MD [address] [place] [address] PCP - General Internal Medicine 01/13/16 Finn Harris MD [address] [place] [address] Endocrinology, Diabetes, and Metabolism 12/23/20 Wanda Bautista MD [address] [place] [address] MD Ophthalmology 12/31/20 Gilberto Weathers MD [address] [place] [address] Assigned PCP 01/05/21 Ky Marcos MD [address] [place], [place] [address] Physician Endocrinology, Diabetes, and Metabolism 02/20/22 Ky Marcos MD [address] [place] [address] Assigned Endocrinology Provider 07/04/22 Na Ibarra RPH [address] [place] [address] Pharmacist Pharmacist 12/21/22
--- OUTSIDE RECORDS SUMMARY | 2023-10-31 18:24 | XMS_ITS | Encounter Summary ---
Author Organization [place] Address [address] [place] [address] Care Team Providers Care Fireproof Door Maker Name Role Phone Gilberto Weathers MD Primary Care Provider [phone] Finn Harris MD Unavailable Shirin Wanda Eubanks MD Unavailable [phone] Gilberto Weathers MD Unavailable [phone] Ky Marcos MD Unavailable Ky Marcos MD Unavailable Na Ibarra [facility] Unavailable [phone] Reason for Visit * Reason Onset Date Comments Prior Auth - Medication 08/18/2023 Continuo us Blood Gluc Employment Training Specialist (DEXCOM G7 CENTRAL OFFICE FRAME WIRER) BERT - Approved Encounter Details Date Type Department Care Team (Late st Contact Info) Description 08/18/[address] [place] [address] Gilberto Weathers MD [address] [place] [address] Prior Auth - Medication (Continuous Blood Gluc Employment Training Specialist (DEXCOM G7 CENTRAL OFFICE FRAME WIRER) BERT - Approved) Social History Tobacco Use Types Packs/Day Years [...] encounter Miscellaneous Notes * Telephone Encounter - Kevin Breen - 08/31/2023 2:36 PM CDT Prior Authorization Approval Medication: DEXCOM G7 CENTRAL OFFICE FRAME WIRER BERT Authorization Effective Date: 08/31/2023 Authorization Expiration Date: 08/30/2024 Approved Dose/Quantity: Reference #: [id number] Insurance Company: [employer] [phone] Which [facility] is filling the [id number] [address] [employer] Pharm[facility] Notified: y Patient Notified: y - pharmacy to notify * Telephone Encounter - Kevin Breen - 08/31/2023 1:17 PM CDT Images from the original note were not included. PA Initiation Medication: DEXCOM G7 CENTRAL OFFICE FRAME WIRER BERT Insurance Company: [employer] [phone] Pharmacy [facility]illing [facility] Rx[id number] [id number] [employer] Filling Pharmacy Filling Pharmacy Fax: Start Date: 08/31/2023 * Telephone Encounter - Kevin Breen - 08/31/2023 1:03 PM CDT Called [facility] to confirm ins info. Pharmacy advised script was transferred to [facility] - [phone] * Telephone Encounter - Mervat Miranda RN - 08/18/2023 3:08 PM CDT Fax from pharmacy states Pt needs a PA for Dexcom G7 Sensors. documented in this encounter Plan of Treatment Not on file documented as of this encounter Visit Diagnoses Not on filedocumented in this encounter Care Teams Fireproof Door Maker Relationship Specialty Start Date End Date Gilberto Weathers MD [address] [place] [address] PCP - General Internal Medicine 01/13/16 Finn Harris MD [address] [place] [address] Endocrinology, Diabetes, and Metabolism 12/23/20 Wanda Bautista MD [address] [place] [address] Ophthalmology 12/31/20 Gilberto Weathers MD [address] [place] [address] Assigned PCP 01/05/21 Ky Marcos MD [address] [place] [address] Physician Endocrinology, Diabetes, and Metabolism 02/20/22 Ky Marcos MD [address] [place] [address] Assigned Endocrinology Provider 07/04/22 Na Ibarra RPH [address] [place] [address] Pharmacist Pharmacist 12/21/22 documented as of this encounter
--- OUTSIDE RECORDS SUMMARY | 2023-10-31 18:24 | XMS_ITS | Encounter Summary ---
Author Organization [place] Address [address] [place] [address] Care Team Providers Care Event Promotions Coordinator Name Role Phone Gilberto Weathers MD Primary Care Provider [phone] Finn Harris MD Unavailable Shirin vailable Wanda Bautista MD Unavailable [phone] Gilberto Weathers MD Unavailable [phone] Finn Harris MD Unavailable Shirin vailable Wanda Bautista MD Unavailable [phone] Mariah Mcmanus [facility] Unavailable [phone] Sarah Castañeda [facility] Unavailable [phone] [facility] Unavailable [phone] Ky Marcos MD Unavailable Ky Marcos MD Unavailable Na Ibarra [facility] Unavailable [phone] Encounter Details Date Type Department Care Team (Late st Contact Info) Description 05/13/2021 Documentation Only INTERFACED REPORT Unknown, [...] PHQ-2 Answer Date Recorded PHQ-2 Score 0 03/10/2021 Sex and Gender Information Value Date Recorded Sex Assigned at Male 09/01/2021 8:47 AM CDT Gender Identity Male 09/01/2021 8:47 AM CDT Sexual Orientation Straight 09/01/2021 8: 47 AM CDT COVID-19 Exposure Response Date Recorded In the last month, have you been in contact with someone who was confirmed or suspected to have Coronavirus / COVID-19? Unable to assess 05/12/2021 10:58 AM CS T documented as of this encounter Plan of Treatment Not on file documented as of this encounter Visit Diagnoses Not on filedocumented in this encounter Additional Health Concerns Infection Onset Date Last Indicated Resolved Time COVID-19 05/12/2021 05/12/2021 06/02/2021 11:3 9 PM MEDICAL STAFF PHYSICIAN Rule Out COVID-19 06/10/2021 06/10/2021 06/10/2021 6:57 PM MEDICAL STAFF PHYSICIAN Rule Out COVID-19 10/28/2021 10/28/2021 10/29/2021 11:41 AM CDT Rule Out COVID-19 09/14/2023 09/14/2023 09/14/2023 6:00 PM CDT documented as of this encounter Care Teams Event Promotions Coordinator Relationship Specialty Start Date End Date Gilberto Weathers MD [address] [address] PCP - General Internal Medicine 01/13/16 Finn Harris MD [address] [address] Endocrinology, Diabetes, and Metabolism 12/23/20 Wanda Bautista MD [address] [place] [address] Ophthalmology 12/31/20 Gilberto Weathers MD [address] [place] [address] Assigned PCP 01/05/21 Finn Harris MD NO INFO AVAILABLE Assigned Endocrinology Provider 02/09/21 07/03/22 Wanda Bautista MD [address] [place] [address] Assigned Surgical Provider 02/02/21 09/11/22 Mariah Mcmanus, [facility] [address] [address] Assigned MTM Pharmacist 10/18/2102/06 Sarah Castañeda [facility] [address] [facility] [address] Pharmacist 02/03/22 02/23/22 Mariah Mcmanus, [facility] [address] [address] Assigned MTM Pharmacist 02/18/2202/21 Ky Marcos MD [address] [place] [address] Physician Endocrinology, Diabetes, and Metabolism 02/20/22 Ky Marcos MD [address] [place] [address] Assigned Endocrinology Provider 07/04/22 FredNa rogers RPH [address] [place] [address] Pharmacist Pharmacist 12/21/22 documented as of this encounter
--- OUTSIDE RECORDS SUMMARY | 2023-10-31 18:24 | XMS_ITS | Encounter Summary ---
Author Organization [place] Address [address] [place] [address] Care Team Providers Care Winder Hand Name Role Phone Gilberto Weathers MD Primary Care Provider [phone] Finn Harris MD Unavailable Shirin vailable Wanda Bautista MD Unavailable [phone] Gilberto Weathers MD Unavailable [phone] Finn Harris MD Unavailable Shirin vailable Wanda Bautista MD Unavailable [phone] Mariah Mcmanus [facility] Unavailable [phone] Ky Marcos MD Unavailable Ky Marcos MD Unavailable Na Ibarra [facility] Unavailable [phone] Encounter Details Date Type Department Care Team (Late st Contact Info) Description 06/09/2022 [facility] [address] 3rd [place] [address] [place] Social History Tobacco Use Types Packs/Day Years [...] PHQ-2 Answer Date Recorded PHQ-2 Score 0 02/17/2022 Sex and Gender Information Value Date Recorded [...] documented as of this encounter Care Teams Winder Hand Relationship Specialty Start Date End Date Gilberto Weathers MD [address] [place] [address] PCP - General Internal Medicine 01/13/16 Finn Harris MD [address] [place] [address] Endocrinology, Diabetes, and Metabolism 12/23/20 Wanda Bautista MD [address] [place] [address] Ophthalmology 12/31/20 Gilberto Weathers MD [address] [place] [address] Assigned PCP 01/05/21 Finn Harris MD NO INFO AVAILABLE Assigned Endocrinology Provider 02/09/21 07/03/22 Wanda Bautista MD [address] [place] [address] Assigned Surgical Provider 02/02/21 09/11/22 Mariah Mcmanus [facility] [address] [facility] [address] [place] [address] Assigned MTM Pharmacist 02/18/2202/21 Ky Marcos MD [address] [place] [address] Physician Endocrinology, Diabetes, and Metabolism 02/20/22 Ky Marcos MD [address] [place] [address] Assigned Endocrinology Provider 07/04/22 Na Ibarra [facility] [address] [place] [address] Pharmacist Pharmacist 12/21/22 documented as of this encounter
--- OUTSIDE RECORDS SUMMARY | 2023-10-31 18:24 | XMS_ITS | Encounter Summary ---
Author Organization [place] Address [address] [place] [address] Care Team Providers Care Auricular Acupuncturist Name Role Phone Gilberto Weathers MD Primary Care Provider [phone] Finn Harris MD Unavailable Shirin Wanda Eubanks MD Unavailable [phone] Gilberto Weathers MD Unavailable [phone] Ky Marcos MD Unavailable Ky Marcos MD Unavailable Na Ibarra [facility] Unavailable [phone] Reason for Visit * Reason Onset Date Comments Refill Request 08/12/2023 Ozempic Encounter Details Date Type Department Care Team (Late st Contact Info) Description 08/12/[address] [place] [address] Gilberto Weathers MD [address] [place] [address] Refill Request (Ozempic) Social History Tobacco Use Types Packs/Day Years [...] encounter Miscellaneous Notes * Telephone Encounter - Sadie Neumann - 08/12/2023 3:55 PM CDT Left voicemail and Engage Mobilityhart message for patient to call back to schedule annual preventative appointment. * Telephone Encounter - Gilberto Weathers MD - 08/12/2023 3:43 PM CDT Needs to be seen in clinic for annual check and will discuss treatment. * Telephone Encounter - Valentina Dumont - 08/12/2023 7:48 AM CDT Ozempic Last Written Prescription Date: Last Fill Quantity: , # refills: Last Office Visit: VV 06/04/23 Future Office visit: Routing refill request to provider for review/approval because: Drug not active on patient's medication list documented in this encounter Plan of Treatment Not on file documented as of this encounter Visit Diagnoses Not on filedocumented in this encounter Care Teams Auricular Acupuncturist Relationship Specialty Start Date End Date Gilberto Weathers MD [address] [place] [address] PCP - General Internal Medicine 01/13/16 Finn Harris MD [address] [place] [address] Endocrinology, Diabetes, and Metabolism 12/23/20 Wanda Bautista MD [address] [place] [address] Ophthalmology 12/31/20 Gilberto Weathers MD [address] [place] [address] Assigned PCP 01/05/21 Ky Marcos MD [address] [place] [address] Physician Endocrinology, Diabetes, and Metabolism 02/20/22 Ky Marcos MD [address] [place] [address] Assigned Endocrinology Provider 07/04/22 Na Ibarra RPH [address] [place] [address] Pharmacist Pharmacist 12/21/22 documented as of this encounter
--- OUTSIDE RECORDS SUMMARY | 2023-10-31 18:24 | XMS_ITS | Encounter Summary ---
Author Organization [place] Address [address] [place] [address] Care Team Providers Care Grove Superintendent Name Role Phone Gilberto Weathers MD Primary Care Provider [phone] Finn Harris MD Unavailable Shirin vailable Wanda Bautista MD Unavailable [phone] Gilberto Weathers MD Unavailable [phone] Finn Harris MD Unavailable Shirin vailable Wanda Bautista MD Unavailable [phone] Mariah Mcmanus [facility] Unavailable [phone] Sarah Castañeda [facility] Unavailable [phone] Mariah Mcmanus [facility] Unavailable Ky Marcos MD Unavailable Ky Marcos MD Unavailable Na Ibarra [facility] Unavailable [phone] Encounter Details Date Type Department Care Team (Late st Contact Info) Description 12/04/2021 [facility] [place] [address] [place] [address] Mariah Mcmanus, [facility] [address] [facility] [address] [place] [address] Social History Tobacco Use Types [...] documented as of this encounter Care Teams Grove Superintendent Relationship Specialty Start Date End Date Gilberto Weathers MD [address] [place] [address] PCP - General Internal Medicine 01/13/16 Finn Harris MD [address] [place] [address] Endocrinology, Diabetes, and Metabolism 12/23/20 Wanda Bautista MD [address] [place] [address] Ophthalmology 12/31/20 Gilberto Weathers MD [address] [place] [address] Assigned PCP 01/05/21 Finn Harris MD NO INFO AVAILABLE Assigned Endocrinology Provider 02/09/21 07/03/22 Wanda Bautista MD [address] [place] [address] Assigned Surgical Provider 02/02/21 09/11/22 Mariah Mcmanus, [facility] [address] [facility] [address] [place] [address] Assigned MTM Pharmacist 10/18/2102/06 Sarah Castañeda [facility] [address] [facility] [place] [address] Pharmacist 02/03/22 02/23/22 Mariah Mcmanus, [facility] [address] [facility] [address] [place] [address] Assigned MTM Pharmacist 02/18/2202/21 Ky Marcos MD [address] [place] [address] Physician Endocrinology, Diabetes, and Metabolism 02/20/22 Ky Marcos MD [address] [place] [address] Assigned Endocrinology Provider 07/04/22 Na Ibarra [facility] [address] [place] [address] Pharmacist Pharmacist 12/21/22 documented as of this encounter
--- OUTSIDE RECORDS SUMMARY | 2023-10-31 18:24 | XMS_ITS | Encounter Summary ---
Author Organization [place] Address [address] [place] [address] Care Team Providers Care Adjustment Clerk Name Role Phone Gilberto Weathers MD Primary Care Provider [phone] Finn Harris MD Unavailable Shirin Wanda Eubanks MD Unavailable [phone] Gilberto Weathers MD Unavailable [phone] Ky Marcos MD Unavailable Ky Marcos MD Unavailable Na Ibarra [facility] Unavailable [phone] Encounter Details Date Type Department Care Team (Latest Contact Info) Description 09/14/2023 Travel Social History Tobacco Use Types Packs/Day [...] documented as of this encounter Care Teams Adjustment Clerk Relationship Specialty Start Date End Date Gilberto Weathers MD [address] [place] [address] PCP - General Internal Medicine 01/13/16 Finn Harris MD [address] [place] [address] Endocrinology, Diabetes, and Metabolism 12/23/20 Wanda Bautista MD [address] [place] [address] Ophthalmology 12/31/20 Gilberto Weathers MD [address] [place] [address] Assigned PCP 01/05/21 Ky Marcos MD [address] [facility] [place] [address] Physician Endocrinology, Diabetes, and Metabolism 02/20/22 Ky Marcos MD [address] [facility] [place] [address] Assigned Endocrinology Provider 07/04/22 Na Ibarra [facility] [address] [place] [address] Pharmacist Pharmacist 12/21/22 documented as of this encounter
--- OUTSIDE RECORDS SUMMARY | 2023-10-31 18:24 | XMS_ITS | Encounter Summary ---
Author Organization [place] Address [address] [place] [address] Care Team Providers Care Lucerne Farmer Name Role Phone Gilberto Weathers MD Primary Care Provider [phone] Finn Harris MD Unavailable Shirin vailable Wanda Bautista MD Unavailable [phone] Gilberto Weathers MD Unavailable [phone] Finn Harris MD Unavailable Shirin vailable Wanda Bautista MD Unavailable [phone] Mariah Mcmanus [facility] Unavailable [phone] Sarah Castañeda [facility] Unavailable Mariah Mcmanus [facility] Unavailable Ky Marcos MD Unavailable Ky Marcos MD Unavailable Na Ibarra [facility] Unavailable [phone] Encounter Details Date Type Department Care Team (Late st Contact Info) Description 01/06/2022 [facility] [place] [address] [place] [address] Mariah Mcmanus, [facility] [address] [facility] [address] [place] [address] Social History Tobacco Use Types [...] documented as of this encounter Care Teams Lucerne Farmer Relationship Specialty Start Date End Date Gilberto Weathers MD [address] [place] [address] PCP - General Internal Medicine 01/13/16 Finn Harris MD [address] [place] [address] Endocrinology, Diabetes, and Metabolism 12/23/20 Wanda Bautista MD [address] [place] [address] Ophthalmology 12/31/20 Gilberto Weathers MD [address] [place] [address] Assigned PCP 01/05/21 Finn Harris MD NO INFO AVAILABLE Assigned Endocrinology Provider 02/09/21 07/03/22 Wanda Bautista MD [address] [place] [address] Assigned Surgical Provider 02/02/21 09/11/22 Mariah Mcmanus, [facility] [address] [facility] [address] [place] [address] Assigned MTM Pharmacist 10/18/2102/06 Sarah Castañeda [facility] [address] [facility] [place] [address] Pharmacist 02/03/22 02/23/22 Mariah Mcmanus, [facility] [address] [facility] [address] [place] [address] Assigned MTM Pharmacist 02/18/2202/21 Ky Marcos MD [address] [place] [address] Physician Endocrinology, Diabetes, and Metabolism 02/20/22 Ky Marcos MD [address] [place] [address] Assigned Endocrinology Provider 07/04/22 Na Ibarra [facility] [address] [place] [address] Pharmacist Pharmacist 12/21/22 documented as of this encounter
--- OUTSIDE RECORDS SUMMARY | 2023-10-31 18:24 | XMS_ITS | Encounter Summary ---
Author Organization [place] Address [address] [place] [address] Care Team Providers Care Mechanical Specialist Name Role Phone Gilberto Weathers MD Primary Care Provider [phone] Finn Harris MD Unavailable Shirin Wanda Eubanks MD Unavailable [phone] Gilberto Weathers MD Unavailable [phone] Ky Marcos MD Unavailable Ky Marcos MD Unavailable Na Ibarra [facility] Unavailable [phone] Reason for Visit * Reason Onset Date Comments Prior Auth - Medication 08/31/2023 Continuo us Blood Gluc Sensor (DEXCOM G7 SENSOR) MISC - [place] not needed/Duplicate Encounter Details Date Type Department Care Team (Late st Contact Info) Description 08/31/[address] [place] [address] [place] [address] Gilberto Weathers MD [address] [place] [address] Prior Auth - Medication (Continuous Blood Gluc Sensor (DEXCOM G7 SENSOR) MISC - [place] not needed/Duplicate) Social History Tobacco Use Types Packs/Day Years [...] Telephone Encounter - Kevin Breen - 08/31/2023 1:20 PM CDT Prior Authorization Not Needed per Insurance Medication: DEXCOM G7 SENSOR [facility] Insurance Company: [employer] [phone] Expected CoPay: $ Pharmacy Filling the Rx: [id number] [place], [place] - [address] [facility] Pharmacy Notified: n Patient Notified: n Plan sees this as duplicate request. Determination will be made with the carbon printer PA. documented in this encounter Plan of Treatment Not on file documented as of this encounter Visit Diagnoses Not on filedocumented in this encounter Care Teams Mechanical Specialist Relationship Specialty Start Date End Date Gilberto Weathers MD [address] [place] [address] PCP - General Internal Medicine 01/13/16 Finn Harris MD [address] [place] [address] Endocrinology, Diabetes, and Metabolism 12/23/20 Wanda Bautista MD [address] [place] [address] Ophthalmology 12/31/20 Gilberto Weathers MD [address] [place] [address] Assigned PCP 01/05/21 Ky Marcos MD [address] [place] [address] Physician Endocrinology, Diabetes, and Metabolism 02/20/22 Ky Marcos MD [address] [place] [address] Assigned Endocrinology Provider 07/04/22 Na Ibarra [facility] [address] [place] [address] Pharmacist Pharmacist 12/21/22 documented as of this encounter
--- OUTSIDE RECORDS SUMMARY | 2023-10-31 18:24 | XMS_ITS | Encounter Summary ---
Author Organization [place] Address [address] [place] [address] Care Team Providers Care Manager Business Systems Name Role Phone Gilberto Weathers MD Primary Care Provider [phone] Finn Harris MD Unavailable Shirin Wanda Eubanks MD Unavailable [phone] Gilberto Weathers MD Unavailable [phone] Ky Marcos MD Unavailable Ky Marcos MD Unavailable Na Ibarra [facility] Unavailable [phone] Reason for Visit * Reason Onset Date Comments Patient Request 08/09/2023 Encounter Details Date Type Department Care Team (Late st Contact Info) Description 08/09/[address] [place] [address] Gilberto Weathers MD [address] [place] [address] Patient Request Social History Tobacco Use Types Packs/Day Years [...] * Telephone Encounter - Sadie Neumann - 08/09/2023 4:49 PM CDT Spoke with patient and advised him to discuss with pharmacist the differences in the meters but letpatient know prescription was sent to pharmacy. * Telephone Encounter - Gilberto Weathers MD - 08/09/2023 4:30 PM CDT Called in Dexcom 7 He can discuss differences with pharmacy or DM eduction. * Telephone Encounter - Chanel Vieyra - 08/09/2023 4:00 PM CDT Patient states insurance does not cover the Madina 3. His insurance will cover the Dexcom G7 if a new prescription can be sent to the pharmacy. The patient also had questions about the differences between the Madina 3 and Dexcom G7 and would like a phone call to discuss the differences between the two. documented in this encounter Plan of Treatment Not on file documented as of this encounter Visit Diagnoses Diagnosis Type 1 diabetes mellitus with other specified complication (H)- Primary documented in this encounter Care Teams Manager Business Systems Relationship Specialty Start Date End Date Gilberto Weathers MD [address] [place] [address] PCP - General Internal Medicine 01/13/16 Finn Harris MD [address] [place] [address] Endocrinology, Diabetes, and Metabolism 12/23/20 Wanda Bautista MD [address] [place] [address] Ophthalmology 12/31/20 Gilberto Weathers MD [address] [place] [address] Assigned PCP 01/05/21 Ky Marcos MD [address] [place] [address] Physician Endocrinology, Diabetes, and Metabolism 02/20/22 Ky Marcos MD [address] [place] [address] Assigned Endocrinology Provider 07/04/22 Na Ibarra RPH [address] [place] [address] Pharmacist Pharmacist 12/21/22 documented as of this encounter
--- OUTSIDE RECORDS SUMMARY | 2023-10-31 18:25 | XMS_ITS | Encounter Summary ---
Author Organization [place] Address [address] [place] [address] Care Team Providers Care Surveillance Investigator Name Role Phone Gilberto Weathers MD Primary Care Provider [phone] Abbie Molina APRN PATTERNMAKER APPRENTICE WOOD Unavailable [phone] Gilberto Weathers MD Unavailable [phone] Gilberto Weathers MD Unavailable Kiki Acevedo [facility] Unavailable Mariah Mcmanus [facility] Unavailable [phone] Nancy Martin HOUSE DESIGNER Unavailable Du Serrano MD Unavailable Nancy Martin HOUSE DESIGNER Unavailable Sheila Haney MD Unavailable Finn Harris MD Unavailable Shirin vailable Wanda Bautista MD Unavailable Gilberto Weathers MD Unavailable Finn Harris MD Unavailable Shirin vailable Wanda Bautista MD Unavailable [phone] Mariah Mcmanus [facility] Unavailable Sarah Castañeda [facility] Unavailable Mariah Mcmanus [facility] Unavailable Ky Marcos MD Unavailable Ky Marcos MD Unavailable Na Ibarra [facility] Unavailable [phone] Reason for Visit * Reason Onset Date Comments Diabetes Education 06/10/2017 Encounter Details Date Type Department Care Team (Late st Contact Info) Description 06/10/2017 Telephone [facility] [address] [place] [address] Abbie Molina APRN PATTERNMAKER APPRENTICE WOOD [address] [place] [address] Diabetes Education Social History Tobacco Use Types Packs/Day Years Used Date Smoking Tobacco: Every Day Cigarettes 0.3 5 Smokeless Tobacco: Never Alcohol Use Standard Drinks/Week Comments No 0 (1 standard drink = 0.6 oz pur e alcohol) Sex and Gender Information Value Date Recorded Sex Assigned at Male 09/01/2021 8:47 AM CDT Gender Identity Male 09/01/2021 8:47 AM CDT Sexual Orientation Straight 09/01/2021 8: 47 AM CDT documented as of this encounter Miscellaneous Notes * Telephone Encounter - Anish Chavez - 06/10/2017 12:59 PM CST Diabetes Education Scheduling Outreach #1: Call to patient to schedule. Invalid phone number. Plan for 2nd outreach attempt within 1 week. Anish Chavez [facility] Sched[facility] SECURITY CONSULTANT documented in this encounter Plan of Treatment Not on file documented as of this encounter Visit Diagnoses Not on filedocumented in this encounter Additional Health Concerns Infection Onset Date Last Indicated Resolved Time Rule Out COVID-19 05/12/2021 05/12/2021 05/12/2021 12:08 PM SAP SECURITY CONSULTANT COVID-19 05/12/2021 05/12/2021 06/02/2021 11:3 9 PM SAP SECURITY CONSULTANT Rule Out COVID-19 06/10/2021 06/10/2021 06/10/2021 6:57 PM SAP SECURITY CONSULTANT Rule Out COVID-19 10/28/2021 10/28/202110/2910/29/2021 11:41 AM CDT Rule Out COVID-19 09/14/2023 09/14/2023 09/14/2023 6:00 PM CDT documented as of this encounter Care Teams Surveillance Investigator Relationship Specialty Start Date End Date Gilberto Weathers MD [address] [place] [address] PCP - General Internal Medicine 01/13/16 Abbie Molina APRN PATTERNMAKER APPRENTICE WOOD [address] [place], [place] [address] PCP - Assigned PCP 06/06/17 06/04/18 Gilberto Weathers MD [address] [place] [address] PCP - Assigned PCP 06/05/18 07/26/18 Gilberto Weathers MD [address] [place] [address] Assigned PCP 06/05/18 03/18/19 Kiki Acevedo, [facility] [address] [place] [address] Pharmacist Pharmacist 11/08/18 04/29/21 Mariah Mcmanus, [facility] [address] [facility] [address] [place] [address] Pharmacist Pharmacist 12/01/18 01/04/19 Nancy Martin, HOUSE DESIGNER [address] [facility], [address] [address] Assigned PCP 03/19/19 03/16/20 Du Serrano MD [address] [place] [address] Assigned PCP 03/17/20 03/30/20 Nancy Martin HOUSE DESIGNER [address] [facility], [address] [address] Assigned PCP 03/31/20 12/14/20 Sheila Haney MD [address] [place] [address] Assigned PCP 12/15/20 01/04/21 Finn Harris MD [address] [place] [address] Endocrinology, Diabetes, and Metabolism 12/23/20 Wanda Bautista MD [address] [place] [address] MD Ophthalmology 12/31/20 Gilberto Weathers MD [address] [place] [address] Assigned PCP 01/05/21 Finn Harris MD NO INFO AVAILABLE Assigned Endocrinology Provider 02/09/21 07/03/22 Wanda Bautista MD [address] [place] [address] Assigned Surgical Provider 02/02/21 09/11/22 Mariah Mcamnus, [facility] [address] [place], [place] [address] [place] [address] Assigned MTM Pharmacist 10/18/2102/06 Sarah Castañeda [facility] [address] [place] [address] Pharmacist 02/03/22 02/23/22 Mariah Mcmanus, [facility] [address] [facility] [address] [place] [address] Assigned MTM Pharmacist 02/18/2202/21 Ky Marcos MD [address] [place] [address] Physician Endocrinology, Diabetes, and Metabolism 02/20/22 Ky Marcos MD [address] [place] [address] Assigned Endocrinology Provider 07/04/22 Na Ibarra [facility] [address] [place] [address] Pharmacist Pharmacist 12/21/22 documented as of this encounter
--- OUTSIDE RECORDS SUMMARY | 2023-10-31 18:25 | XMS_ITS | Clinical Summary ---
Author Organization [employer] [facility] Address [place], [place] [address] Care Team Providers Care Tugboat Captain Name Role Phone Pcp, No Primary Care Provider Unavailabl e Allergies No known active allergies Medications Medication Sig Dispensed Refills Start Date End Date Status acetaminophen (Tylenol Extra Strength) 500 mg tablet Take 1,000 mg by mouth 3 times daily if needed. Max acetaminophen dose: 4000mg in 24 hrs. Active Insulin Lamont, Disposable, (Viki Pen Needle) 32 gauge x 5/32Indications:Un controlled type 2 diabetes mellitus with hyperglycemia, without long-term current use of insulin (HC) Use as directed once daily with Lantus insulin 100 Each 12/09/2020 Active Lantus Solostar U-100 Insulin 100 unit/mL (3 mL) penIndications:Type 2 diabetes mellitus with hyperglycemia, without long-term current use of insulin (HC) Inject 20 units subcutaneously before bedtime. 15 mL 12/09/2020 Active metFORMIN (GLUCOPHAGE) 500 mg tabletIndications:U ncontrolled type 2 diabetes mellitus with hyperglycemia, without long-term current use of insulin (HC) Take 1 Tablet (500 mg) by mouth 2 times daily with meals. 180 Tablet 12/09/2020 Active ondansetron (ZOFRAN ODT) 4 mg disintegrating tabletIndications:V omiting in adult Place 1 Tablet (4 mg) on the tongue every 8 hours if needed for Nausea/Vomiting. 10 Tablet 01/07/2023 Active methylPREDNISolone (Medrol, [place],) 4 mg tabletIndications:F rambo-like symptoms Take by mouth as instructed per packaging. 21 Tablet 01/23/2023 Active Active Problems Problem Noted Date Diagnosed Date Type 2 diabetes mellitus wit h hyperglycemia, without long-term current use of insulin 12/09/2020 Slow transit constipation 12/09/2020 Flu-like symptoms 12/09/2020 Encounters Date Type Department Care Team Description 09/15/2023 Orders Only [facility] [address] [place] [address] Luly Villa PA 1 scan: (1-Ord) 09/14/2023 09/14/2023 3:35 PM CDT Office Visit [facility] [address] [place] [address] Arelis Villalba PA Headache 09/14/2023 Travel from Last 3 Months Family History Medical History Relation Name Comments Hypertension Father Relation Name Status Comments Father Social History Tobacco Use Types Packs/Day Years Used Date Smoking Tobacco: Every Day Cigarettes 0.5 11.4 Started: 2012 Passive Smoke Exposure: Current Smokeless Tobacco: Never Tobacco Cessation:Ready to Q uit: Not Asked; Counseling Given: Not Answered Alcohol Use Standard Drinks/Week Comments No 0 (1 standard drink = 0.6 oz pur e alcohol) Sex and Gender Information Value Date Recorded Sex Assigned at Not on file Gender Identity Not on file Sexual Orientation Not on file Obstetrics History Last Filed Vital Signs Vital Sign Reading Time Taken Comments Blood Pressure 114/59 09/14/2023 3:39 PM CDT Pulse 92 09/14/2023 3:39 PM CDT Temperature 36.2 ??C (97.1 ??F) 09/14/2023 3:39 PM CD T Respiratory Rate 16 09/14/2023 3:39 PM CDT Oxygen Saturation 97% 09/14/2023 3:39 PM CDT Inhaled Oxygen Concentration - - Weight 87.1 kg (192 lb) 09/14/2023 3:39 PM CDT Height 175.3 cm (5' 9) 01/06/2023 11:48 PM CDT Body Mass Index 28.35 01/06/2023 11:48 PM CDT Plan of Treatment Health Maintenance Due Date Last Done Comments Tdap 1995 Depression screening for age 12+ 1996 Hepatitis C screening for ag e 18-79 2002 Tetanus booster 2004 Lipids for age 35-44 2019 COVID-19 vaccine series (3 - 2022- season) 2023 08/27/2021, 08/24/2020 BMI (ht and wt on same day) for age 18+ 11/16/2023 11/15/2022 Influenza for age 9-49 01/23/2024 HIV for age 15-65 Completed 03/22/2014 Pneumococcal series for age 6-64 Aged Out No longer eligible b ased on patient's age to complete this topic Procedures Procedure Name Priority Date/Time Associated Diagnosis Comments EKG 12 LEAD Routine 09/14/2023 12:00 AM CDT Chest pain, unspecified type ANTI HIV 1/2 Routine 03/22/2014 11:17 AM CDT Urticaria from Last 3 Months or Most Recently Relevant to Health Maintenance Results * EKG 12 LEAD (09/14/2023 12:00 AM CDT) Luly MORIN EKG ORD * ANTI HIV 1/2 (03/22/2014 11:17 AM CDT) HIV-1/HIV-2 ANTIBODY Non-Reacti ve Non-Reacti ve 03/22/2014 7:11 PM CDT [facility] Blood specimen (specimen) BLOOD SPECIMEN / Unknown Venipuncture / Unknown 03/22/2014 11:17 AM CDT 03/22/2014 11:17 AM CDT Narrative [facility] - 03/22/2014 7:11 PM CDT HIV-1 p24 and HIV-1/HIV-2 Ab not detected Dottie DOMINGO SEND OUTS [facility] [address] [place] [address], [place] from Last 3 Months or Most Recently Relevant to Health Maintenance Advance Directives * Full Code (Latest Code Status on File) Date Activated Date Inactivated Comments 12/09/2020 5:21 AM 12/09/2020 11:13 PM Question Answer Comments Code Status Discussion: Not Discussed Care Teams Tugboat Captain Relationship Specialty Start Date End Date Pcp, No . PCP - General 02/15/14
--- OUTSIDE RECORDS SUMMARY | 2023-10-31 18:25 | XMS_ITS | Encounter Summary ---
Author Organization [facility] Address [address] [place] [address] Care Team Providers Care Spray Unit Feeder Name Role Phone Gilberto Weathers MD Primary Care Provider [phone] Gilberto Weathers MD Unavailable [phone] Kiki Acevedo [facility] Unavailable Mariah Mcmanus [facility] Unavailable Nancy Martin [employer] Unavailable Du Serrano MD Unavailable [phone] Nancy Martin [employer] Unavailable [phone] Sheila Haney MD Unavailable Finn Harris MD Unavailable Shirin vailable Wanda Bautista MD Unavailable [phone] Gilberto Weathers MD Unavailable [phone] Finn Harris MD Unavailable Shirin vailable Wanda Bautista MD Unavailable [phone] Mariah Mcmanus [facility] Unavailable Sarah Castañeda [facility] Unavailable [phone] Mariah Mcmanus [facility] Unavailable [phone] Ky Marcos MD Unavailable Ky Marcos MD Unavailable Na Ibarra [facility] Unavailable [phone] Encounter Details Date Type Department Care Team (Late st Contact Info) Description 12/01/2018 MyC Medical Advice [facility] [address] [email or web address] [address] [place] [address] Mariah Mcmanus, [facility] [address] [facility] [place] [address] [place], [place] [id number] Social History Tobacco Use Types Packs/Day Years Used Date Smoking Tobacco: Every Day Cigarettes 0.3 5 Smokeless Tobacco: Never Alcohol Use Standard Drinks/Week Comments No 0 (1 standard drink = 0.6 oz pur e alcohol) PHQ-2 Answer Date Recorded PHQ-2 Score 0 06/01/2018 Sex and Gender Information Value Date Recorded [...] Out COVID-19 05/12/2021 05/12/2021 05/12/2021 12:08 PM PRINCIPAL TRAINER COVID-19 05/12/2021 05/12/2021 06/02/2021 11:3 9 PM PRINCIPAL TRAINER Rule Out COVID-19 06/10/2021 06/10/2021 06/10/2021 6:57 PM PRINCIPAL TRAINER Rule Out COVID-19 10/28/2021 10/28/2021 10/29/2021 11:41 AM CDT Rule Out COVID-19 09/14/2023 09/14/2023 09/14/2023 6:00 PM CDT documented as of this encounter Care Teams Spray Unit Feeder Relationship Specialty Start Date End Date Gilberto Weathers MD [address] [place], [place] [id number] PCP - General Internal Medicine 01/13/16 Gilberto Weathers MD [address] [place], [place] [id number] Assigned PCP 06/05/18 03/18/19 Kiki Acevedo [facility] [address] [place] [address] Pharmacist Pharmacist 11/08/18 04/29/21 Mariah Mcmanus, [facility] [address] [facility] [place] [address] [place] [address] Pharmacist Pharmacist 12/01/18 01/04/19 Nancy Martin, [employer] [address] [address] Assigned PCP 03/19/19 03/16/20 Du Serrano MD [address] [place] [id number] Assigned PCP 03/17/20 03/30/20 Nancy Martin, [employer] [address] [place] [address] Assigned PCP 03/31/20 12/14/20 Sheila Haney MD [address] [place] [address] Assigned PCP 12/15/20 01/04/21 Finn Harris MD [address] [place] [address] Endocrinology, Diabetes, and Metabolism 12/23/20 Wanda Bautista MD [address] [place] [address] Ophthalmology 12/31/20 Gilberto Weathers MD [address] [place] [address] Assigned PCP 01/05/21 Finn Harris MD NO INFO AVAILABLE Assigned Endocrinology Provider 02/09/21 07/03/22 Wanda Bautista MD [address] [place], [place] [address] Assigned Surgical Provider 02/02/21 09/11/22 Mariah Mcmanus, [facility] [address] [address] Assigned MTM Pharmacist 10/18/2102/06 Sarah Castañeda [facility] [address] [place] [address] [place] [address] Pharmacist 02/03/22 02/23/22 Mariah Mcmanus, [facility] [address] [address] Assigned MTM Pharmacist 02/18/2202/21 Ky Marcos MD [address] [place] [address] Physician Endocrinology, Diabetes, and Metabolism 02/20/22 Ky Marcos MD [address] [place] [address] Assigned Endocrinology Provider 07/04/22 Na Ibarra [facility] [address] [place] [address] Pharmacist Pharmacist 12/21/22 documented as of this encounter
[2023-10-31 18:51] LABS: Creatinine, Point-of-Care* 0.6 mg/dl (0.6-1.3)
[2023-10-31 18:52] LABS: Basophils Absolute Auto 0.02 K/uL (0.00-0.30); Basophils Percent Auto 0.3 % (0.0-3.0); Eosinophils Absolute Auto 0.19 K/uL (0.00-0.50); Eosinophils Percent Auto 2.5 % (0.0-7.0); HCO3 VBG 26 mmol/L (21-28); Hematocrit 43.4 % (37.0-53.0); Hemoglobin* 14.5 gm/dL (13.5-17.5); Immature Granulocytes Abs Auto 0.01 K/uL (0.00-0.30); Immature Granulocytes Pct Auto 0.1 %; Lymphocytes Absolute Auto 3.13 K/uL (0.90-2.90); Lymphocytes Percent Auto 41.7 % (20-44); Mean Corpuscular HGB Conc 33 gm/dL (32-36); Mean Corpuscular Hemoglobin 31 pg (26-34); Mean Corpuscular Volume 91 fL (80-100); Monocytes Percent Auto 8.8 % (0.0-11.0); Neutrophils Absolute Auto 3.49 K/uL (1.7-7.0); Neutrophils Percent Auto 46.6 % (42.0-72.0); PCO2 VBG 37 mmHG (40-50); PO2 VBG 77.5 mmHG (25-47); Platelet Count* 332 K/uL (140-440); RDW Coefficient of Variation % 13.2 % (11.5-15.5); Red Blood Count 4.76 m/uL (4.30-5.90)
[2023-10-31 19:02] LABS: Slide Review Reflex No
[2023-10-31 19:11] LABS: Chloride* 104 mmol/L (96-114); Potassium* 4.1 mmol/L (3.6-5.1); Sodium* 133 mmol/L (135-149)
[2023-10-31 19:12] LABS: INR 0.92 (0.91-1.10); Prothrombin Time 12.9 Seconds
[2023-10-31 19:14] LABS: Anion Gap 3 mEq/L (7-15); Blood Urea Nitrogen* 14 mg/dL (5-24); Carbon Dioxide* 26 mmol/L (20-32); Creatinine* 0.6 mg/dL (0.5-1.5); Est. Creatinine Clearance* 165.29; Estimated Glomerular Filt Rate 126 ml/min; Partial Thromboplastin Time* 27 Seconds (23-33)
[2023-10-31 19:15] LABS: Calcium* 8.7 mg/dL (8.4-10.6); Magnesium* 2.2 mg/dL (1.5-2.6)
[2023-10-31 19:20] LABS: C Reactive Protein* < 0.5 mg/dL (0.5-1.0)
[2023-10-31 19:22] LABS: Glucose* 374 mg/dL (60-115)
[2023-10-31] MEDS: 0.9 % SODIUM CHLORIDE 1000 ml 1,000 ML IV (19:26)
[2023-10-31] MEDS: ONDANSETRON 2 MG/ML inj 4 MG IVP (19:31)
[2023-10-31] MEDS: MORPHINE 4 MG/ML INJ IVP (19:31)
[2023-10-31 19:45] VITALS: BP 120/79; PULSE 82; RESP 16; O2SAT 98
--- NOTE | 2023-10-31 19:57 | CRLHL7_ITS ---
For Patients: As a result of the Century Cures Act, medical imaging exams and procedure reports are released immediately into your electronic medical record. You may view this report before your referring provider. If you have questions, please contact your health care provider. Indication: Vertigo, ataxia of left arm Technique: Noncontrast sagittal T1 weighted, axial FLAIR, axial T2 weighted, and axial diffusion weighted sequences are provided. Comparison: CT 10/31/2023 Findings: The ventricles, sulci and gyri are normal size, shape and contour for age. The midline structures are centrally located with no evidence of shift. There are no suspicious intra or extra-axial fluid collections. No region of restricted diffusion. Expected flow voids in the cavernous carotids and basilar artery. Small air-fluid level in the left maxillary sinus and mild mucosal thickening in the bilateral maxillary sinuses. The pituitary gland, optic chiasm, pineal gland, and cerebellar tonsils are unremarkable. Impression: 1. Unremarkable noncontrast MRI of the brain. 2. Small air-fluid level in the left maxillary sinus and mild mucosal thickening in the bilateral maxillary sinuses Dictated by Ahmet Shelton MD @ 10/31/2023 8:52:42 PM (Electronically Signed)
[2023-10-31 20:50] VITALS: BP 119/74; PULSE 77; RESP 16; O2SAT 99
[2023-10-31 20:55] LABS: Glucose, Point-of-Care* 225 mg/dl (60-115)
== END 2023-10-31 21:48 | disposition home or self-care (01) ==
PROVIDERS: Emergency Provider Emergency Medicine; PCP Internal Medicine
DX: G43.909 Migraine, unspecified, not intractable, without status migrainosus (principal); J32.9 Chronic sinusitis, unspecified
CPT/HCPCS: 36415; 70450; 70496; 70498; 70551; 80048; 82565; 82803; 82947; 83735; 84484; 85025; 85610; 85730; 86140; 93005; 96374; 96375; 99284; 99285; J2270; J2405; J7030; Q9967

== ENCOUNTER 2024-02-22 20:55 | Emergency (ER) | payer OTHER, SELFPAY ==
[2024-02-22 21:01] VITALS: BP 124/69; PULSE 87; RESP 18; TEMP 36.9; O2SAT 99; BMI 28.9
--- NOTE | 2024-02-22 21:15 | ED_ITS ---
HPI - General Adult General Date Seen: 02/22/24 Chief complaint: Ear/Nose/Throat Problem Stated complaint: Severe pain in left ear and head-L side Time Seen by Provider: 02/22/24 21:07 History of Present Illness HPI narrative: 38-year-old male with a history of adult onset but insulin-dependent diabetes and history of sinusitis presenting to the ER today with left ear pain and left- sided headache that began today . We woke up this morning he was have his some pain in his left urinary got worse this afternoon around 1:00 p.m.. It is not radiating from the year up to the left temporoparietal side of his head. He does not have any injury to his ear. He does wear ear plugs at work ([place] for [employer] [place] No recent fever. No recent cough or nasal congestion. No sore throat. He has diabetes and manages it with an insulin pump. He has a continuous glucose monitor and sugars been well controlled today. No other symptoms. No fever or chills. No head trauma. No neck stiffness. No blurry vision. No focal numbness or weakness in his arms or legs. Related Data Home Medications ?Medication ?Instructions ?Recorded ?Confirmed atorvastatin 20 mg tablet 20 mg PO QHS 03/05/22 02/22/24 fluticasone propionate 50 1 spray intranasal DAILY PRN 03/05/22 02/22/24 mcg/actuation nasal spray,suspension (Allergy Relief (fluticasone)) insulin aspart U-100 100 unit/mL 1 sliding scale dose subcut 03/05/22 02/22/24 (3 mL) subcutaneous pen USEASDIRECTD insulin glargine 100 unit/mL (3 26 unit subcut QPM 03/05/22 02/22/24 mL) subcutaneous pen metformin 500 mg tablet 500 mg PO BID 03/05/22 02/22/24 omeprazole 20 mg capsule,delayed 20 mg PO DAILY 03/05/22 02/22/24 release Allergies Allergy/AdvReac Type Severity Reaction Status Date / Time No Known Drug Allergies Allergy Verified 02/22/24 21:04 [facility] Medical History Hyperlipidemia ?E78.5 - Hyperlipidemia, unspecified (ICD-10) GERD (gastroesophageal reflux disease) ?K21.9 - Gastro-esophageal reflux disease without esophagitis (ICD-10) DM (diabetes mellitus), type 2 ?E11.9 - Type 2 diabetes mellitus without complications (ICD-10) Surgical History No significant past surgical history Social History Smoking Status: Current every day smoker What tobacco products do you use: cigarettes Do you use any of these nicotine containing products: None Second hand tobacco smoke exposure: No How often do you have a drink containing alcohol: never How often do you have six or more drinks on one occasion: Never AUDIT-C Alcohol total score: 0 Non-prescribed substance use: denies use Exam Narrative: Exam Narrative: Constitutional: Appears well-developed and well-nourished. Alert. Conversant. Non toxic. HENT: Head: Atraumatic. No depressed skull fracture, Raccoon Eyes, Larson's sign, or hemotympanum. Face normal Right ear: TM, canal, mastoid, pinnae are normal. Left ear: TM is erythematous and bulging with opaque fluid behind it. Suspicious for otitis media. No evidence for perforation. Canal appears normal. Pinna of the ear is normal. Mastoid normal. Palpation of left side of the head reveals no tenderness. There is no swelling or induration of the scalp. No shingles. Nose: Nose normal. No rhinorrhea. Mouth/Throat: Oral mucosa is clear and moist. no trismus. Pharynx normal. Tonsils symmetric. No tonsillar enlargement, erythema, or exudate. Eyes: Conjunctivae normal. EOM normal. Pupils equal, round, and reactive to light. No scleral icterus. Neck: Normal range of motion. Neck supple. No tracheal deviation present. Cardiovascular: Normal rate, regular rhythm. No gallop. No friction rub. No murmur heard. Pulmonary/Chest: Effort normal. No stridor. No respiratory distress. No wheezes. No rales. No rhonchi . Musculoskeletal: RUE: Normal range of motion. No tenderness. No deformity LUE: Normal range of motion. No tenderness. No deformity RLE: Normal range of motion. No edema. No tenderness. No deformity LLE: Normal range of motion. No edema. No tenderness. No deformity Lymph: No cervical adenopathy. Neurological: Alert and oriented to person, place, and time. Normal strength. CN II-VII intact. No sensory deficit. GCS eye subscore is 4. GCS verbal subscore is 5. GCS motor subscore is 6. Normal coordination Skin: Skin is warm and dry. No rash noted. No pallor. Normal capillary refill. Psychiatric: Normal mood. Normal affect. Const: Vital Signs, click to edit/add: Vital Signs - 24 hr 02/22/24 21:01 Temperature 98.5 F Pulse Rate [Right Pulse Oximeter] 87 Respiratory Rate 18 Blood Pressure [Ri ght Upper Arm] 124/69 Pulse Oximetry 99 Oxygen Delivery Me thod Room Air Course Vital Signs Vital signs: Initial Vital Signs Temperature 98.5 F 02/22/24 21:01 Temperature Source Temporal Artery Scan 02/22/24 21:01 Pulse Rate 87 02/22/24 21:01 Respiratory Rate 18 02/22/24 21:01 Blood Pressure 124/69 02/22/24 21:01 Blood Pressure Mean 87 02/22/24 21:01 Blood Pressure Position Sitting 02/22/24 21:01 Pulse Oximetry 99 02/22/24 21:01 Oxygen Delivery Method Room Air 02/22/24 21:01 Vital Signs Temperature 98.5 F 02/22/24 21:01 Pulse Rate 87 02/22/24 21:01 Respiratory Rate 18 02/22/24 21:01 Blood Pressure 124/69 02/22/24 21:01 Pulse Oximetry 99 02/22/24 21:01 Oxygen Delivery Method Room Air 02/22/24 21:01 Temperature 98.5 F 02/22/24 21:01 Pulse Rate 87 02/22/24 21:01 Respiratory Rate 18 02/22/24 21:01 Blood Pressure 124/69 02/22/24 21:01 Pulse Oximetry 99 02/22/24 21:01 Oxygen Delivery Method Room Air 02/22/24 21:01 Medications Administered Medications: Discontinued Medications Generic Name Dose Route Start Last Admin Trade Name Freq PRN Reason Stop Dose Admin Ibuprofen 600 mg 02/22/24 21:29 02/22/24 21:39 Ibuprofen 600 Mg Tablet PO 02/22/24 21:30 600 mg ONCE ONE Administration Medical Decision Making [facility] Narrative Medical decision making narrative: This patient presents for evaluation of left ear pain and left-sided headache. Symptoms began mildly this morning and got worse at about 1:00 p.m. today.. The patient has an exam consistent with acute otitis media. There is no sign of mastoiditis, meningitis, perforation, mass, dental abscess, or peritonsillar abscess. Although he is diabetic his sugars well controlled. There is no fever here. At this point I do not think he needs advanced imaging to look for mastoiditis, brain abscess, or other complication of otitis media. There is no evidence of otitis externa. No foreign body. The patient will be started on antibiotics ([facility] for amoxicillin). Ibuprofen administered for pain here in the ER. He has to drive home. [facility] prescriptions for [place] that he can use if needed for pain relief at home.. Return if increasing pain, fever, decrease in hearing, swelling or pain of the mastoid, ear discharge, or severe headache. Follow-up with primary physician in 24-48 hours if not improving. Discharge Plan Discharge Clinical Impression: Otitis media, Headache Patient Disposition: Home, Self-Care Condition: Stable Instructions: Ear Infection (ED), Acute Headache (DC) Additional Instructions: As we discussed, please return to the ER right away if you have worsening or severe headache, any fever, hearing loss, blurry vision, nausea or vomiting, or any other problems. Typically will take 24-48 hours for an ear infection to start get better on antibiotics. If you are having pain you can use ibuprofen or Tylenol if needed for pain relief. If these medications are ineffective you can use the prescription pain killer, [place]. Use caution with [place] because it causes dizziness, drowsiness, and you should not drive. [place] can also lead to constipation. [place] can be addictive. Prescriptions: No Action insulin glargine 100 unit/mL (3 mL) insulin pen 26 unit subcut QPM insulin aspart U-100 100 unit/mL (3 mL) insulin pen 1 sliding scale dose subcut USEASDIRECTD Patient Comments: 4 units before breakfast, 8 units before lunch, 8 units before dinner atorvastatin 20 mg tablet 20 mg PO QHS metformin 500 mg tablet 500 mg PO BID omeprazole 20 mg capsule,delayed release(DR/EC) 20 mg PO DAILY fluticasone propionate [Allergy Relief (fluticasone)] 50 mcg/actuation spray,suspension 1 spray intranasal DAILY PRN Rx Instructions: administer into each nostril Follow Up/Referrals: Gilberto Weathers MD [Primary Care Provider] - Stand Alone Forms: [employer] Instructions
--- OUTSIDE RECORDS SUMMARY | 2024-02-22 21:32 | XMS_ITS | Encounter Summary ---
Author Organization [facility] Address [address] [place] [address] Care Team Providers Care Rail Car Operator Name Role Phone Gilberto Weathers MD Primary Care Provider [phone] Finn Harris MD Unavailable Shirin vaWanda Alatorre MD Unavailable [phone] Gilberto Weathers MD Unavailable [phone] yK Marcos MD Unavailable Na Ibarra [facility] Unavailable [phone] Encounter Details Date Type Department Care Team (Late st Contact Info) Description 02/07/2024 MyC Medical Advice [address] [address] Alisia Eason, [employer] Social History Tobacco Use Types Packs/Day Years Used Date Smoking Tobacco: Every Day Cigarettes 0.5 5 Passive Smoke Exposure: Current Smokeless Tobacco: Never Alcohol Use Standard Drinks/Week Comments No 0 (1 standard drink = 0.6 oz pur e alcohol) Social Connection and Isolation Panel [NHANES] A nswer Date Recorded Frequency of Communication with Friends and Fami ly Not on file 11/23/2023 How often do you get together with friends or re latives? Once a week 11/23/2023 Attends Bahai Services Not on file 11/22 Active Member of Clubs or Organizations Not on f ile 11/23/2023 Attends Club or Organization Meetings Not on timoteo e 11/23/2023 Marital Status Not on file 11/23/2023 PHQ-2 Answer Date Recorded PHQ-2 Score 0 06/04/2023 [employer] [place] [employer] - Occupational Stress Questionnaire Answer Date Recorded Do you feel stress - tense, restless, nervous, or anxious, or unable to sleep at night because your mind is troubled all the time - these days? To some extent 11/23/2023 Exercise Vital Sign Answer Date Recorde d On average, how many days pe r week do you engage in moderate to strenuous exercise (like a brisk walk)? 2 days Minutes of Exercise per Session Not on file 11/23/2023 Adolescent Education Answer Date Record ed Getting School Help Needed Not on file 02/12 Food Insecurity Answer Date Recorded Within the past 12 months, d id you worry that your food would run out before you got money to buy more? No 11/23/2023 Within the past 12 months, d id the food you bought just not last and you didn? t have money to get more? No 11/23/2023 Housing Stability Answer Date Recorded Do you have housing? (Sal bond is defined as stable permanent housing and does not include staying ouside in a car, in a tent, in an abandoned building, in an overnight residential, or couch-surfing.) Yes 11/23/2023 Are you worried about losing your housing? Yes 11/23/2023 Financial Resource Strain Answer Date R ecorded Within the past 12 months, h ave you or your family members you live with been unable to get utilities (heat, electricity) when it was really needed? No 11/23/2023 Transportation Needs Answer Date Record ed Within the past 12 months, h as lack of transportation kept you from medical appointments, getting your medicines, non-medical meetings or appointments, work, or from getting things that you need? No 11/23/2023 Interpersonal Safety Answer Date Record ed Do you feel physically and e motionally safe where you currently live? Yes 11/23/2023 Within the past 12 months, h ave you been hit, slapped, kicked or otherwise physically hurt by someone? No 11/23/2023 Within the past 12 months, h ave you been humiliated or emotionally abused in other ways by your partner or ex-partner? No 11/23/2023 Sex and Gender Information Value Date Recorded Sex Assigned at Male 09/01/2021 8:47 AM CDT Gender Identity Male 09/01/2021 8:47 AM CDT Sexual Orientation Straight 09/01/2021 8: 47 AM CDT documented as of this encounter Plan of Treatment Not on file documented as of this encounter Visit Diagnoses Not on filedocumented in this encounter Care Teams Rail Car Operator Relationship Specialty Start Date End Date Gilberto Weathers MD [address] [place] [address] PCP - General Internal Medicine 01/13/16 Finn Harris MD [address] [place] [address] Endocrinology, Diabetes, and Metabolism 12/23/20 Wanda Bautista MD [address] [place] [address] MD Ophthalmology 12/31/20 Gilberto Weathers MD [address] [place] [address] Assigned PCP 01/05/21 Ky Marcos MD [address] [place] [address] Physician Endocrinology, Diabetes, and Metabolism 02/20/22 Na Ibarra [facility] [address] [place] [address] Pharmacist Pharmacist 12/21/22 documented as of this encounter
--- OUTSIDE RECORDS SUMMARY | 2024-02-22 21:32 | XMS_ITS | Encounter Summary ---
Author Organization [facility] Address [address] [place] [address] Care Team Providers Care Plastic Outfitter Name Role Phone Gilberto Weathers MD Primary Care Provider [phone] Finn Harris MD Unavailable Shirin Wanda Eubanks MD Unavailable [phone] Gilberto Weathers MD Unavailable [phone] Ky Marcos MD Unavailable Ky Marcos MD Unavailable Na Ibarra [facility] Unavailable [phone] Reason for Visit * Reason Onset Date Comments Forms 12/26/2023 Encounter Details Date Type Department Care Team (Late st Contact Info) Description 12/26/2023 [facility] Medical Advice [address] [place] [address] Gilberto Weathers MD [address] [place] [address] Forms Social History Tobacco Use Types Packs/Day Years [...] re latives? Once a week 11/23/2023 Attends [employer] Not on file 11/22 Active Member of Clubs or Organizations Not on f ile 11/23/2023 Attends Club or Organization Meetings Not on timoteo e 11/23/2023 Marital Status Not on file 11/23/2023 PHQ-2 Answer Date Recorded PHQ-2 Score 0 06/04/2023 [facility] [place] of Occupat ional Health - Occupational Stress [...] in an abandoned building, in an overnight assisted, or couch-surfing.) Yes 11/23/2023 Are you worried [...] Telephone Encounter - Mervat Miranda RN - 12/29/2023 4:44 PM CDT Call to pt. Emailed to pt, so he can sign form. Also faxed to [facility]. * Telephone Encounter - Gilberto Weathers MD - 12/29/2023 4:39 PM CDT Form is ready * Telephone Encounter - Mervat Miranda RN - 12/29/2023 4:24 PM CDT PT has called twice regarding this. Today is the deadline. * Telephone Encounter - Mervat Miranda RN - 12/27/2023 8:54 AM CDT See his [employer] message and attachment. Work letter was done on 11/23/[address] Weathers due to his Type 1 diabetes. documented in this encounter Plan of Treatment Not on file documented as of this encounter Visit Diagnoses Not on filedocumented in this encounter Care Teams Plastic Outfitter Relationship Specialty Start Date End Date Gilberto Weathers MD [address] [place] [address] PCP - General Internal Medicine 01/13/16 Finn Harris MD [address] [place] [address] Endocrinology, Diabetes, and Metabolism 12/23/20 Wanda Bautista MD [address] [place] [address] Ophthalmology 12/31/20 iGlberto Weathers MD [address] [place] [address] Assigned PCP 01/05/21 Ky Marcos MD [address] [place] [address] Physician Endocrinology, Diabetes, and Metabolism 02/20/22 Ky Marcos MD [address] [place] [address] Assigned Endocrinology Provider 07/04/22 01/13/24 Na Ibarra RPH [address] [place] [address] Pharmacist Pharmacist 12/21/22 documented as of this encounter
--- OUTSIDE RECORDS SUMMARY | 2024-02-22 21:32 | XMS_ITS | Referral Summary ---
Author Organization [place] Address [address] [place] [address] Care Team Providers Care Ceramist Name Role Phone Gilberto Weathers MD Primary Care Provider [phone] Norma Harris MD Unavailable Shirin Wanda Eubanks MD Unavailable [phone] Gilberto Weathers MD Unavailable [phone] Ky Marcos MD Unavailable Na Ibarra [facility] Unavailable [phone] Encounters Date Type Department Care Team Description 02/07/2024 My[facility] Medical Advice [address] [address] Alisia Eason DOCK BOSS 12/26/2023 MyC Medical Advice [facility] [address] [facility] [address] [place] [phone] Gilberto Weathers MD Forms 11/23/2023 12:20 PM CDT Ancillary Procedure [facility] [address] [facility] [address] [place] [phone] Gilberto Weathers MD Encounter for preventative adult health care examination; Acute cough 11/23/2023 Travel 11/23/2023 11:30 AM CDT Office Visit [facility] [address] [facility] [address] [place] [phone] Gilberto Weathers MD Encounter for preventative adult health care examination (Primary Dx); Acute cough; Type 1 diabetes mellitus with other specified complication (H); Hyperlipidemia LDL goal <100 11/22/2023 Telephone [place] [address] [place] [address] Gilberto Weathers MD Same Day Appointment (Virtual ) from Last 3 Months Allergies No known [...] MCG/ACT nasal sprayIndications:Co ngestion of paranasal sinus [place] 1-2 sprays into both nostrils daily 16 [...] for constipation 02/11/2021 Active Continuous Blood Gluc Internet Designer (FREESTYLE JONI 2 READER) DEVIIndications:Typ e 1 diabetes mellitus without complication (H) 1 each daily 1 each 12/03/2021 Active psyllium (METAMUCIL/KONSYL) 58.6 % powderIndications:C hronic idiopathic constipation Take 18 g (1 Tablespoonful) by mouth daily 283 g 1 02/17/2022 Active Additional Information Patient not taking.Reported on 11/23/2023 Continuous Blood Gluc Sensor (FREESTYLE JONI 2 [...] each 3 06/04/2023 Active Continuous Blood Gluc Internet Designer (FREESTYLE JONI 3 READER) DEVIIndications:Typ e 2 diabetes mellitus with hyperglycemia, with long-term current use of insulin (H) 1 Act 4 times daily 2 each 3 06/04/2023 Active metFORMIN (GLUCOPHAGE) 500 MG [...] 10 days 9 each 5 08/09/2023 Active insulin glargine (LANTUS PEN) 100 UNIT/ML pen Inject 30 Units Subcutaneous at bedtime 30 mL 3 11/23/2023 Active insulin aspart (NOVOLOG PEN) 100 UNIT/ML pen Take 4 units before breakfast, 8 units before lunch and 8 units before supper Take 1/2 doses if blood sugars are 80-100 Hold the dose if blood sugars are less than 80. Max dose 20 units daily If blood sugar is over 150 add 2 units to above If over 200 add 4 units If over 250 add 5 units If over 300 add 6 units 15 mL 3 11/23/2023 Active atorvastatin (LIPITOR) 20 MG tabletIndications:H yperlipidemia LDL goal <100 Take 1 tablet (20 mg) by mouth daily 90 tablet 3 11/24/2023 Active Active Problems Problem Noted Date Diagnosed [...] re latives? Once a week 11/23/2023 Attends [employer] Services Not on file 11/22 Active Member of Clubs or Organizations Not on f ile 11/23/2023 Attends Club or Organization Meetings Not on timoteo e 11/23/2023 Marital Status Not on file 11/23/2023 PHQ-2 Answer Date Recorded PHQ-2 Score 0 06/04/2023 [facility] - Occupational Stress Questionnaire Answer Date Recorded [...] Date Recorded Do you have housing? (Sal g is defined as stable permanent housing and does not include staying ouside in a car, in a tent, in an abandoned building, in an overnight retirement, or couch-surfing.) Yes 11/23/2023 Are you worried [...] Sign Reading Time Taken Comments Blood Pressure 124/78 11/23/2023 11:21 AM CDT Pulse 104 11/23/2023 11:21 AM CDT Temperature 36.6 ??C (97.8 ??F) 11/23/2023 1 1:21 AM CDT Respiratory Rate 16 11/23/2023 11:2 1 AM CDT Oxygen Saturation 99% 11/23/2023 11: 21 AM CDT Inhaled Oxygen Concentration - - Weight 85.1 kg (187 lb 11.2 oz) 024 11:21 AM CDT Height 180.3 cm (5' 11) 11/23/2023 11: 21 AM CDT Body Mass Index 26.18 11/23/2023 11:21 AM CDT Plan of Treatment Not on file Procedures Procedure Name Priority Date/Time Associated Diagnosis Comments XR CHEST 2 VIEWS Routine 11/23/2023 12:2 1 PM CDT Encounter for preventative adult health care examination Acute cough UA MICROSCOPIC WITH REFLEX TO CULTURE Routine 11/23/2023 12:04 PM CDT Encounter for preventative adult health care examination ROUTINE UA WITH MICROSCOPIC REFLEX TO CULTURE Routine 11/23/2023 12:04 PM CDT Encounter for preventative adult health care examination ALBUMIN RANDOM URINE QUANTITATIVE Routine 11/23/2023 12:03 PM CDT Encounter for preventative adult health care examination HEMOGLOBIN A1C Routine 11/23/2023 11:58 AM CDT Encounter for preventative adult health care examination TSH WITH FREE T4 REFLEX Routine 11/23/2023 11:58 AM CDT Encounter for preventative adult health care examination COMPREHENSIVE METABOLIC PANEL Routine 11/23/2023 11:58 AM CDT Encounter for preventative adult health care examination CBC WITH PLATELETS Routine 11/23/2023 11 :58 AM CDT Encounter for preventative adult health care examination LIPID REFLEX TO DIRECT LDL PANEL Routine 11/23/2023 11:58 AM CDT Encounter for preventative adult health care examination from Last 3 Months Results * XR Chest 2 Views (11/23/2023 12:21 PM CDT) Anatomical Region Laterality Modality Chest Computed Radiogr aphy Impressions 11/23/2023 2:23 PM CDT IMPRESSION: Negative chest. Lungs clear. NORMA FARMER MD SYSTEM ID: ??[id number] Narrative 11/23/2023 2:23 PM CDT CHEST TWO VIEWS ??11/23/2023 12:21 PM HISTORY: ??Acute cough. COMPARISON: 09/14/2023. Procedure Note Norma Farmer MD - 11/23/2023 CHEST TWO VIEWS 11/23/2023 12:21 PM HISTORY: Acute cough. COMPARISON: 09/14/2023. IMPRESSION: Negative chest. Lungs clear. NORMA FARMER MD SYSTEM ID: [id number] Gilberto Weathers MD IMG DIAGNOSTIC IMAG ING ORDERABLES * (ABNORMAL) UA Microscopic with Reflex to Culture (11/23/2023 12:04 PM CDT) Bacteria Urine None Seen None Seen /HPF SUSANA 11/23/2023 12:32 PM CDT [facility] RBC Urine 0-2 0-2 /HPF /HPF SUSANA 11/23/2023 12:32 PM CDT [facility] WBC Urine 0-5 0-5 /HPF /HPF SUSANA 11/23/2023 12:32 PM CDT [facility] Squamous Epithelials Urine Few(A) None Seen /LPF SUSANA 11/23/2023 12:32 PM CDT [facility] Mucus Urine Present(A ) None Seen /LPF SUSANA 11/23/2023 12:32 PM CDT [facility] Urine URINE SPECIMEN OBTAINED BY CLEAN CATCH PROCEDURE / Unknown Non-blood Collection / Unknown 11/23/2023 12:04 PM CDT 11/23/2023 12:04 PM CDT Narrative [facility] - 11/23/2023 12:32 PM CDT Urine Culture not indicated Gilberto Weathers MD LAB - URINE ORDERAB LES [facility] [address], [address] [place] [address], [facility] [phone] * (ABNORMAL) UA with Microscopic reflex to Culture - lab collect (11/23/2023 12:04 PM CDT) Color Urine Yellow Colorless, Straw, Light Yellow, Yellow 11/23/2023 12:07 PM CDT [facility] Appearance Urine Clear Clear 11/23/19 12:07 PM CDT [facility] Glucose Urine >=1000(A) Negative mg/dL 11/23/2023 12:07 PM CDT [facility] Bilirubin Urine Negative Negative 12:07 PM CDT [facility] Ketones Urine Negative Negative mg/dL 11/23/2023 12:07 PM CDT [facility] Specific [place] Urine 1.020 1.003 - 1.035 11/23/2023 12:07 PM CDT [facility] Blood Urine Negative Negative 11/23/2023 12:07 PM CDT [facility] pH Urine 6.0 5.0 - 7.0 11/23/2023 12:07 PM CDT [facility] Protein Albumin Urine Negative Negative mg/dL 11/23/2023 12:07 PM CDT [facility] Urobilinogen Urine 0.2 0.2, 1.0 E.U./dL 11/23/2023 12:07 PM CDT [facility] Nitrite Urine Negative Negative 11/23/2023 12:07 PM CDT [facility] Leukocyte Esterase Urine Negative Negative 11/23/2023 12:07 PM CDT [facility] Urine URINE SPECIMEN OBTAINED BY CLEAN CATCH PROCEDURE / Unknown Non-blood Collection / Unknown 11/23/2023 12:04 PM CDT 11/23/2023 12:04 PM CDT Gilberto Weathers MD LAB - URINE ORDERAB LES [facility] [address], [address] [place] [address], [facility] [phone] * Albumin Random Urine Quantitative with Creat Ratio (11/23/2023 12:03 PM CDT) Creatinine Urine mg/dL 107.0 mg/dL 11/24/2023 3:00 AM CDT [facility] Comment:The reference ranges have not been established in urine creatinine. The results should be integrated into the clinical context for interpretation. Albumin Urine mg/L <12.0 mg/L 2023 3:00 AM CDT [facility] Comment:The reference ranges have not been established in urine albumin. The results should be integrated into the clinical context for interpretation. Albumin Urine mg/g Cr 11/24/2023 3:00 AM CDT [facility] Comment: Unable to calculate, urine albumin and/or urine creatinine is outside detectable limits. Microalbuminuria is defined as an albumin:creatinine ratio of 17 to 299 for males and 25 to 299 for females. A ratio of albumin:creatinine of 300 or higher is indicative of overt proteinuria. Due to biologic variability, positive results should be confirmed by a second, first-morning random or 24-hour timed urine specimen. If there is discrepancy, a third specimen is recommended. When 2 out of 3 results are in the microalbuminuria range, this is evidence for incipient nephropathy and warrants increased efforts at glucose control, blood pressure control, and institution of therapy with an iqdoxytysll-pkvqucpnsg-hpqqke (TIP) inhibitor (if the patient can tolerate it). ?? Urine URINE SPECIMEN OBTAINED BY CLEAN CATCH PROCEDURE / Unknown Non-blood Collection / Unknown 11/23/2023 12:03 PM CDT 11/23/2023 12:04 PM CDT Gilberto Weathers MD LAB - URINE ORDERAB LES [facility] [address] [facility], [address] * TSH with free T4 reflex (11/23/2023 11:58 AM CDT) TSH 0.50 0.30 - 4.20 uIU/mL 11/24/2023 2:20 AM CDT [facility] Blood BLOOD SPECIMEN / Unknown Venipuncture / Unknown 11/23/2023 11:58 AM CDT 11/23/2023 11:58 AM CDT Gilberto Weathers MD LAB - BLOOD ORDERAB LES [facility] [address] [facility], [address] * (ABNORMAL) Lipid panel reflex to direct LDL Fasting (11/23/2023 11:58 AM CDT) Cholesterol 201(H) <200 mg/dL 11/24/2023 2:21 AM CDT [facility] Triglycerides 194(H) <150 mg/dL 11/24/2023 2:21 AM CDT [facility] Direct Measure HDL 47 >=40 mg/dL 11/24/2023 2:21 AM CDT [facility] LDL Cholesterol Calculated 115(H) <=100 mg/dL 11/24/2023 2:21 AM CDT [facility] Non HDL Cholesterol 154(H) <130 mg/dL 11/24/2023 2:21 AM CDT [facility] Patient Fasting > 8hrs? Yes 11/24/2023 2:21 AM CDT [facility] Blood BLOOD SPECIMEN / Unknown Venipuncture / Unknown 11/23/2023 11:58 AM CDT 11/23/2023 11:58 AM CDT Narrative [facility] - 11/24/2023 2:21 AM CDT Cholesterol Desirable: ??<200 mg/dL Triglycerides Normal: ??Less than 150 mg/dL Borderline High: ??150-199 mg/dL High: ??200-499 mg/dL Very High: ??Greater than or equal to 500 mg/dL Direct Measure HDL Female: ??Greater than or equal to 50 mg/dL Male: ??Greater than or equal to 40 mg/dL LDL Cholesterol Desirable: ??<100mg/dL Above Desirable: ??100-129 mg/dL Borderline High: ??130-159 mg/dL High: ??160-189 mg/dL Very High: ??>= 190 mg/dL Non HDL Cholesterol Desirable: ??130 mg/dL Above Desirable: ??130-159 mg/dL Borderline High: ??160-189 mg/dL High: ??190-219 mg/dL Very High: ??Greater than or equal to 220 mg/dL Gilberto Weathers MD LAB - BLOOD ORDERAB LES [facility] [address] [facility], [address] [place] [address] * (ABNORMAL) Hemoglobin A1c (11/23/2023 11:58 AM CDT) Hemoglobin A1C 11.9(H) 0.0 - 5.6 % 11/23/2023 12:25 PM CDT [facility] Comment: Normal <5.7% Prediabetes 5.7-6.4% ?? Diabetes 6.5% or higher Note: Adopted from ADA consensus guidelines. Blood BLOOD SPECIMEN / Unknown Venipuncture / Unknown 11/23/2023 11:58 AM CDT 11/23/2023 11:58 AM CDT Narrative [facility] - 11/23/2023 12:25 PM CDT Results confirmed by repeat test. Gilberto Weathers MD LAB - BLOOD ORDERAB LES [facility] [address], [address] [place] [address], [facility] [phone] * (ABNORMAL) Comprehensive metabolic panel (BMP + Alb, Alk Phos, ALT, AST, Total. Bili, TP) (11/23/2023 11:58 AM CDT) Sodium 137 135 - 145 mmol/L 11/24/2023 2:20 AM CDT [facility] Potassium 4.9 3.4 - 5.3 mmol/L 11/24/2023 2:20 AM CDT [facility] Carbon Dioxide (CO2) 28 22 - 29 mmol/L 11/24/2023 2:20 AM CDT [facility] Anion Gap 7 7 - 15 mmol/L 11/24/2023 2:20 AM CDT [facility] Urea Nitrogen 9.9 6.0 - 20.0 mg/dL 11/24/2023 2:20 AM CDT [facility] Creatinine 0.75 0.67 - 1.17 mg/dL 11/24/2023 2:20 AM CDT [facility] GFR Estimate >90 >60 mL/min/1. 73m2 11/24/2023 2:20 AM CDT [facility] Comment:eGFR calculated usin 2020 CKD-EPI equation. Calcium 9.3 8.6 - 10.0 mg/dL 11/24/2023 2:20 AM CDT [facility] Chloride 102 98 - 107 mmol/L 11/24/2023 2:20 AM CDT [facility] Glucose 342(H) 70 - 99 mg/dL 11/24/2023 2:20 AM CDT [facility] Alkaline Phosphatase 122 40 - 150 U/L 11/24/2023 2:20 AM CDT [facility] AST 15 0 - 45 U/L 11/24/2023 2:20 AM CDT [facility] Comment:Reference intervals for this test were updated on 11/02/2022 to more accurately reflect our healthy population. There may be differences in the flagging of prior results with similar values performed with this method. Interpretation of those prior results can be made in the context of the updated reference intervals. ALT 15 0 - 70 U/L 11/24/2023 2:20 AM CDT [facility] Comment:Reference intervals for this test were updated on 11/02/2022 to more accurately reflect our healthy population. There may be differences in the flagging of prior results with similar values performed with this method. Interpretation of those prior results can be made in the context of the updated reference intervals. Protein Total 6.8 6.4 - 8.3 g/dL 11/24/2023 2:20 AM CDT [facility] Albumin 3.9 3.5 - 5.2 g/dL 11/24/2023 2:20 AM CDT [facility] Bilirubin Total 0.2 <=1.2 mg/dL 11/24/2023 2:20 AM CDT [facility] Patient Fasting > 8hrs? Yes 11/24/2023 2:20 AM CDT [facility] Blood BLOOD SPECIMEN / Unknown Venipuncture / Unknown 11/23/2023 11:58 AM CDT 11/23/2023 11:58 AM CDT Gilberto Weathers MD LAB - BLOOD ORDERAB LES [facility] [address] [facility], [address] [place] [address] * CBC with platelets (11/23/2023 11:58 AM CDT) WBC Count 7.1 4.0 - 11.0 10e3/uL 11/23/2023 12:01 PM CDT [facility] RBC Count 4.94 4.40 - 5.90 10e6/uL 11/23/2023 12:01 PM CDT [facility] Hemoglobin 15.4 13.3 - 17.7 g/dL 11/23/2023 12:01 PM CDT [facility] Hematocrit 45.4 40.0 - 53.0 % 11/23/2023 12:01 PM CDT [facility] MCV 92 78 - 100 fL 11/23/2023 12:01 PM CDT [facility] MCH 31.2 26.5 - 33.0 pg 11/23/2023 12:01 PM CDT [facility] MCHC 33.9 31.5 - 36.5 g/dL 11/23/2023 12:01 PM CDT [facility] RDW 13.0 10.0 - 15.0 % 11/23/2023 12:01 PM CDT [facility] Platelet Count 320 150 - 450 10e3/uL 11/23/2023 12:01 PM CDT [facility] Blood BLOOD SPECIMEN / Unknown Venipuncture / Unknown 11/23/2023 11:58 AM CDT 11/23/2023 11:58 AM CDT Gilberto Weathers MD LAB - BLOOD ORDERAB LES Performing Organization Address City/State/[facility] Co de Phone Number [facility] [address], [address] [place] [address], [facility] [phone] from Last 3 Months Advance Directives For more information, please contact: [phone] * Full Code (Latest Code Status on File) Date Activated Date Inactivated Comments 02/01/2015 9:38 AM 03/11/2019 3:00 AM * Full Code Date Activated Date Inactivated Comments 01/31/2015 6:45 PM 02/01/2015 9:38 AM * Full Code Date Activated Date Inactivated Comments 10/15/2014 9:34 AM 01/31/2015 6:45 PM * Full Code Date Activated Date Inactivated Comments 10/14/2014 4:50 PM 10/15/2014 9:34 AM Care Teams Ceramist Relationship Specialty Start Date End Date Gilberto Weathers MD [address] [place] [address] PCP - General Internal Medicine 01/13/16 Norma Harris MD [address] [place] [address] Endocrinology, Diabetes, and Metabolism 12/23/20 Wanda Bautista MD [address] [place] [address] Ophthalmology 12/31/20 Gilberto Weathers MD [address] [place] [address] Assigned PCP 01/05/21 Ky Marcos MD [facility] [place] [address] Physician Endocrinology, Diabetes, and Metabolism 02/20/22 Na Ibarra [facility] [address] [place] [address] Pharmacist Pharmacist 12/21/22
--- OUTSIDE RECORDS SUMMARY | 2024-02-22 21:32 | XMS_ITS | Encounter Summary ---
Author Organization [place] Address [address] [place] [address] Care Team Providers Care Manager Staffing Name Role Phone Gilberto Weathers MD Primary Care Provider [phone] Finn Harris MD Unavailable Shirin Wanda Eubanks MD Unavailable [phone] Gilberto Weathers MD Unavailable [phone] Ky Marcos MD Unavailable Ky Marcos MD Unavailable Na Ibarra [facility] Unavailable [phone] Reason for Visit * Diagnostic Imaging XR (Routine) - Pending Review Specialty Diagnoses / Procedures Referred By Jon barker Referred To Contact Radiology. Diagnoses Encounter for preventative adult health care examination Acute cough Procedures XR Chest 2 Views Gilberto Weathers MD [address] [place] [address] Referral ID Status Reason Start Date Expiration Date V isits Requested Visits Authorized [id number] Pending Review 11/23/2023 11/22/2024 1 1 Encounter Details Date Type Department Care Team (Latest Contact Info) Description 11/23/2023 12:20 PM CDT Ancillary Procedure [facility] [address] [place] [address] Gilberto Weathers MD [address] [place] [address] Encounter for preventative adult health care examination; Acute cough Social History Tobacco Use Types Packs/Day Years [...] re latives? Once a week 11/23/2023 Attends [employer] Not on file 11/22 Active Member of Clubs or Organizations Not on f ile 11/23/2023 Attends Club or Organization Meetings Not on timoteo e 11/23/2023 Marital Status Not on file 11/23/2023 PHQ-2 Answer Date Recorded PHQ-2 Score 0 06/04/2023 [facility] [place] [facility] Occupat ional Health - Occupational Stress [...] Answer Date Recorded Do you have housing? (Melissain g is defined as stable permanent housing and does not include staying ouside in a car, in a tent, in an abandoned building, in an overnight senior care, or couch-surfing.) Yes 11/23/2023 Are you worried [...] preventative adult health care examination Acute cough documented in this encounter Results * XR Chest 2 Views (11/23/2023 12:21 PM CDT) Anatomical Region Laterality Modality Chest Computed Radiogr aphy Impressions 11/23/2023 2:23 PM CDT IMPRESSION: Negative chest. Lungs clear. FINN FARMER MD SYSTEM ID: ??[id number] Narrative 11/23/2023 2:23 PM CDT CHEST TWO VIEWS ??11/23/2023 12:21 PM HISTORY: ??Acute cough. COMPARISON: 09/14/2023. Procedure Note Finn Farmer MD - 11/23/2023 CHEST TWO VIEWS 11/23/2023 12:21 PM HISTORY: Acute cough. COMPARISON: 09/14/2023. IMPRESSION: Negative chest. Lungs clear. FINN FARMER MD SYSTEM ID: [id number] Gilberto Weathers MD IMG DIAGNOSTIC IMAG ING ORDERABLES documented in this encounter Visit Diagnoses Diagnosis Encounter for preventative adult health care examination Acute cough documented in this encounter Care Teams Manager Staffing Relationship Specialty Start Date End Date Gilberto Weathers MD [address] [place] [address] PCP - General Internal Medicine 01/13/16 Finn Harris MD [address] [place] [address] Endocrinology, Diabetes, and Metabolism 12/23/20 Wanda Bautista MD [address] [place] [address] Ophthalmology 12/31/20 Gilberto Weathers MD [address] [place] [address] Assigned PCP 01/05/21 Ky Marcos MD [address] [place] [address] Physician Endocrinology, Diabetes, and Metabolism 02/20/22 Ky Marcos MD [address] [place] [address] Assigned Endocrinology Provider 07/04/22 01/13/24 Na Ibarra [facility] [address] [place], [place] [address] Pharmacist Pharmacist 12/21/22 documented as of this encounter
--- OUTSIDE RECORDS SUMMARY | 2024-02-22 21:32 | XMS_ITS | Clinical Summary ---
Author Organization [facility] Address [address] [place] [address] Care Team Providers Care Rivet Thrower Name Role Phone Gilberto Weathers MD Primary Care Provider [phone] Norma Harris MD Unavailable Shirin Wanda Eubanks MD Unavailable [phone] Gilberto Weathers MD Unavailable [phone] Ky Marcos MD Unavailable Na Ibarra [facility] Unavailable [phone] Allergies No known active allergies Medications Medication [...] MCG/ACT nasal sprayIndications:Co ngestion of paranasal sinus [place] 1-2 sprays into both nostrils daily 16 [...] for constipation 02/11/2021 Active Continuous Blood Gluc Lockstitch [place] (FREESTYLE JONI 2 READER) DEVIIndications:Typ e 1 [...] each 3 06/04/2023 Active Continuous Blood Gluc Lockstitch [place]mer (FREESTYLE JONI 3 READER) DEVIIndications:Typ e 2 [...] 1 06/04/2023 Active Continuous Blood Gluc Sensor (EmgoCOM G7 SENSOR) MISCIndications:Typ e 1 diabetes mellitus [...] Care Team Description 02/07/2024 MyC Medical Advice [address] [address] Alisia Eason CMA 12/26/2023 MyC Medical Advice [facility] [address] [facility] [place] [address] Gilberto Weathers MD Forms 11/23/2023 12:20 PM CDT Ancillary Procedure [address] [place] [address] Gilberto Weathers MD Encounter for preventative adult health care examination; Acute cough 11/23/2023 11:30 AM CDT Office Visit [facility] [address] [facility] [address] [place] [address] Gilberto Weathers MD Encounter for preventative adult health care examination (Primary Dx); Acute cough; Type 1 diabetes mellitus with other specified complication (H); Hyperlipidemia LDL goal <100 11/23/2023 Travel 11/22/[address] [place] [address] Gilberto Weathers MD Same Day Appointment (Virtual ) from Last 3 Months Immunizations Name Administration [...] re latives? Once a week 11/23/2023 Attends Jehovah'S Witness Services Not on file 11/22 Active Member of Clubs or Organizations Not on f ile 11/23/2023 Attends Club or Organization Meetings Not on timoteo e 11/23/2023 Marital Status Not on file 11/23/2023 PHQ-2 Answer Date Recorded PHQ-2 Score 0 06/04/2023 [facility] - Occupational Stress [...] Answer Date Recorded Do you have housing? (Housin g is defined as stable permanent housing and does not include staying ouside in a car, in a tent, in an abandoned building, in an overnight half-way, or couch-surfing.) Yes 11/23/2023 Are you worried [...] 11/23/2023 11:21 AM CDT Plan of Treatment Health Maintenance Due Date Last Done Comments DIABETIC FOOT EXAM 1984 Pneumococcal Vaccine: Pediatrics (0 to 5 Years) and At-Risk Patients (6 to 64 Years) (1 of 2 - PCV) 1990 HEPATITIS C SCREENING 2002 EYE EXAM 03/10/2022 03/10/2021, 02/21, 01/28/2021, Additional history exists COVID-19 Vaccine ( season) 2024 08/27/2021, 08/24/2020 INFLUENZA VACCINE (#1) 2024 A1C 05/25/2024 11/23/2023, 08/22, 12/10/2020, Additional history exists ANNUAL REVIEW OF HM ORDERS 06/04/2024 06/04/2023, NICOTINE/TOBACCO CESSATION COUNSELING Q 1 YR 06/04/2024 06/04/2023, 09/01/2021, 02/11/2021, Additional history exists BMP 11/22/2024 11/23/2023, 08/23, 11/04/2018, Additional history exists LIPID 11/22/2024 11/23/2023, 08/0 01/2021, 11/04/2018, Additional history exists MICROALBUMIN 11/22/2024 11/23/2023, 08/22, 06/01/2017, Additional history exists YEARLY PREVENTIVE VISIT 11/22/2024 11/23/19 24, 11/03/2018, 01/13/2016 DTAP/TDAP/TD IMMUNIZATION (4 - Td or Tdap) 03/17/2026 03/17/2016, 07/03/1999, 07/03/1999, Additional history exists ADVANCE CARE PLANNING 11/22/2028 11/23/2023 , 12/10/2020 (Declined) HEPATITIS B IMMUNIZATION Completed 000, 12/17/1998, 08/15/1998 MENINGITIS IMMUNIZATION Aged Out 12/02/2001 [...] Lungs clear. NORMA FARMER MD SYSTEM ID: ??[id number] Narrative 11/23/2023 2:23 PM CDT CHEST TWO VIEWS ??11/23/2023 12:21 PM HISTORY: ??Acute cough. COMPARISON: 09/14/2023. Procedure Note Norma Farmer MD - 11/23/2023 CHEST TWO VIEWS 11/23/2023 12:21 PM HISTORY: Acute cough. COMPARISON: 09/14/2023. IMPRESSION: Negative chest. Lungs clear. NORMA FARMER MD SYSTEM ID: [id number] Gilberto Weathers MD IMG DIAGNOSTIC IMAG ING [...] LAB - URINE ORDERAB LES [facility] [place] [facility] [address] [place] [address], [facility] [phone] * (ABNORMAL) UA with Microscopic reflex to [...] 11/23/2023 12:07 PM CDT [facility] Specific [place] Urine 1.020 1.003 - 1.035 11/23/2023 12:07 [...] Weathers MD LAB - URINE ORDERAB LES IN LABORATORY [facility] [place] [facility] [address], [address] [place] [address], [facility] [phone] * Albumin Random Urine Quantitative with Creat [...] control, and institution of therapy with an fgewlgqjuzy-rqrmlabhsk-fracyt (TIP) inhibitor (if the patient can tolerate it). ?? Urine URINE SPECIMEN OBTAINED BY CLEAN CATCH PROCEDURE / Unknown Non-blood Collection / Unknown 11/23/2023 12:03 PM CDT 11/23/2023 12:04 PM CDT Gilberto Weathers MD LAB - URINE ORDERAB LES Performing Organization Address City/[facility]/ZIP Co de Phone Number [facility] [address] [facility], [address] * TSH with free T4 reflex (11/23/2023 11:58 AM CDT) TSH 0.50 0.30 - 4.20 uIU/mL 11/24/2023 2:20 AM CDT [facility] Blood BLOOD SPECIMEN / Unknown Venipuncture / Unknown 11/23/2023 11:58 AM CDT 11/23/2023 11:58 AM CDT Gilberto Weathers MD LAB - BLOOD ORDERAB LES Performing Organization Address City/[facility]/ZIP Co de Phone Number [facility] [address] [facility], [address] * (ABNORMAL) Lipid panel reflex to [...] LAB - BLOOD ORDERAB LES [facility] [address] [facility], [address] [place] [address] * (ABNORMAL) Hemoglobin A1c (11/23/2023 11:58 AM CDT) Hemoglobin A1C 11.9(H) 0.0 - 5.6 % 11/23/2023 12:25 PM CDT [facility] Comment: Normal <5.7% Prediabetes 5.7-6.4% ?? Diabetes 6.5% or higher Note: Adopted from ADA consensus guidelines. Blood BLOOD SPECIMEN / Unknown Venipuncture / Unknown 11/23/2023 11:58 AM CDT 11/23/2023 11:58 AM CDT Narrative [facility] - 11/23/2023 12:25 PM CDT Results confirmed by repeat test. Gilberto Weathers MD LAB - BLOOD ORDERAB LES [facility] [place] [facility] [address], [address] [place] [address], [facility] [phone] * (ABNORMAL) Comprehensive metabolic panel (BMP + [...] LAB - BLOOD ORDERAB LES [facility] [address] [facility], [address] [place] [address], [facility] * CBC with platelets (11/23/2023 11:58 AM [...] LAB - BLOOD ORDERAB LES [facility] LAB[facility]ATORY [facility] [place] [facility] [address], [address] [place] [address], [facility] [phone] from Last 3 Months Advance Directives For more information, please contact: [phone] * Full Code (Latest Code Status on File) Date Activated Date Inactivated Comments 02/01/2015 9:38 AM 03/11/2019 3:00 AM * Full Code Date Activated Date Inactivated Comments 01/31/2015 6:45 PM 02/01/2015 9:38 AM * Full Code Date Activated Date Inactivated Comments 10/15/2014 9:34 AM 01/31/2015 6:45 PM * Full Code Date Activated Date Inactivated Comments 10/14/2014 4:50 PM 10/15/2014 9:34 AM Care Teams Rivet Thrower Relationship Specialty Start Date End Date Gilberto Weathers MD [address] [place] [address] PCP - General Internal Medicine 01/13/16 Norma Harris MD [address] [place] [address] Endocrinology, Diabetes, and Metabolism 12/23/20 Wanda Bautista MD [address] [place] [address] Ophthalmology 12/31/20 Gilberto Weathers MD [address] [place] [address] Assigned PCP 01/05/21 Ky Marcos MD [facility] [place] [address] Physician Endocrinology, Diabetes, and Metabolism 02/20/22 Na Ibarra [facility] [address] [place] [address] Pharmacist Pharmacist 12/21/22
--- OUTSIDE RECORDS SUMMARY | 2024-02-22 21:33 | XMS_ITS | Encounter Summary ---
Author Organization [place] Address [address] [place] [address] Care Team Providers Care Immunology Teacher Name Role Phone Gilberto Weathers MD Primary Care Provider [phone] Finn Harris MD Unavailable Shirin Wanda Eubanks MD Unavailable [phone] Gilberto Weathers MD Unavailable [phone] Ky Marcos MD Unavailable Ky Marcos MD Unavailable Na Ibarra [facility] Unavailable [phone] Encounter Details Date Type Department Care Team (Late st Contact Info) Description 08/12/2023 MyC Medical Advice [address] [place] [phone] Sadie Neumann Social History Tobacco Use Types [...] documented as of this encounter Care Teams Immunology Teacher Relationship Specialty Start Date End Date Gilberto Weathers MD [address] [place] [address] PCP - General Internal Medicine 01/13/16 Finn Harris MD [address] [place] [address] Endocrinology, Diabetes, and Metabolism 12/23/20 Wanda Bautista MD [address] [place] [address] MD Ophthalmology 12/31/20 Gilberto Weathers MD [address] [place] [address] Assigned PCP 01/05/21 Ky Marcos MD [address] [place] [address] Physician Endocrinology, Diabetes, and Metabolism 02/20/22 Ky Marcos MD [address] [place] [address] Assigned Endocrinology Provider 07/04/22 01/13/24 Na Ibarra [facility] [address] [place] [address] Pharmacist Pharmacist 12/21/22 documented as of this encounter
--- OUTSIDE RECORDS SUMMARY | 2024-02-22 21:33 | XMS_ITS | Encounter Summary ---
Author Organization [facility] Address [address] [place] [address]. [place] [address] Care Team Providers Care Enterprise Records Analyst Name Role Phone Gilberto Weathers MD Primary Care Provider [phone] Kiki Acevedo [facility] Unavailable [phone] Finn Harris MD Unavailable Shirin vailable Wanda Bautista MD Unavailable [phone] Gilberto Weathers MD Unavailable [phone] Finn Harris MD Unavailable Shirin vailable Wanda Bautista MD Unavailable [phone] Mariah Mcmanus [facility] Unavailable [phone] Sarah Castañeda [facility] Unavailable [phone] SchwMariah louis [facility] Unavailable [phone] Ky Marcos MD Unavailable Ky Marcos MD Unavailable Na Ibarra [facility] Unavailable [phone] Encounter Details Date Type Department Care Team (Late st Contact Info) Description 02/05/2021 [facility] [address] [address] Finn Harris MD NO INFO [...] Out COVID-19 05/12/2021 05/12/2021 05/12/2021 12:08 PM CONTENT DEVELOPMENT SPECIALIST COVID-19 05/12/2021 05/12/2021 06/02/2021 11:3 9 PM CONTENT DEVELOPMENT SPECIALIST Rule Out COVID-19 06/10/2021 06/10/2021 06/10/2021 6:57 PM CONTENT DEVELOPMENT SPECIALIST Rule Out COVID-19 10/28/2021 10/28/2021 10/29/2021 11:41 AM CDT Rule Out COVID-19 09/14/2023 09/14/2023 09/14/2023 6:00 PM CDT documented as of this encounter Care Teams Enterprise Records Analyst Relationship Specialty Start Date End Date Gilberto Weathers MD [address] [place] [address] PCP - General Internal Medicine 01/13/16 Kiki Acevedo, [facility] [address] [place] [address] Pharmacist Pharmacist 11/08/18 04/29/21 Finn Harris MD [address] [place] [address] Endocrinology, Diabetes, and Metabolism 12/23/20 Wanda Bautista MD [address] [place] [address] Ophthalmology 12/31/20 Gilberto Weathers MD [address] [place] [address] Assigned PCP 01/05/21 Finn Harris MD NO INFO AVAILABLE Assigned Endocrinology Provider 02/09/21 07/03/22 Wanda Bautista MD [address] [place] [address] Assigned Surgical Provider 02/02/21 09/11/22 Mariah Mcmanus, [facility] [address] [address] Assigned MTM Pharmacist 10/18/2102/06 Sarah Castañeda, [facility] [address] [place] [address] [place] [address] Pharmacist 02/03/22 02/23/22 Mariah Mcmanus, [facility] [address] [address] Assigned MTM Pharmacist 02/18/2202/21 Ky Marcos MD [address] [place] [address] Physician Endocrinology, Diabetes, and Metabolism 02/20/22 Ky Marcos MD [address] [place] [address] Assigned Endocrinology Provider 07/04/22 01/13/24 Na Ibarra [facility] [address] [place] [address] Pharmacist Pharmacist 12/21/22 documented as of this encounter
--- OUTSIDE RECORDS SUMMARY | 2024-02-22 21:33 | XMS_ITS | Encounter Summary ---
Author Organization [facility] Address [address] [place] [address] Care Team Providers Care Criminal Attorney Name Role Phone Gilberto Weathers MD Primary Care Provider [phone] Gilberto Weathers MD Unavailable [phone] Kiki Acevedo [facility] Unavailable Mariah Mcmanus [facility] Unavailable Nancy Martin DIRECTOR MEDICAL AFFAIRS Unavailable [phone] Du Serrano MD Unavailable [phone] Nancy Martin DIRECTOR MEDICAL AFFAIRS Unavailable [phone] Sheila Haney MD Unavailable Finn Harris MD Unavailable Shirin vailable Wanda Bautista MD Unavailable [phone] Gilberto Weathers MD Unavailable Finn Harris MD Unavailable Shirin vailable Wanda Bautista MD Unavailable [phone] Mariah Mcmanus [facility] Unavailable [phone] Sarah Castañeda [facility] Unavailable [phone] Mariah Mcmanus [facility] Unavailable [phone] Ky Marcos MD Unavailable Ky Marcos MD Unavailable Na Ibarra [facility] Unavailable Encounter Details Date Type Department Care Team (Late st Contact Info) Description 12/01/2018 MyC Medical Advice [facility] [address] [facility] [address] [facility] [address] [place] [address] Mariah Mcmanus, [facility] [address] [facility] [address] [place], [place] [address] Social History Tobacco Use Types Packs/Day Years [...] Out COVID-19 05/12/2021 05/12/2021 05/12/2021 12:08 PM AIR BAG BUILDER COVID-19 05/12/2021 05/12/2021 06/02/2021 11:3 9 PM AIR BAG BUILDER Rule Out COVID-19 06/10/2021 06/10/2021 06/10/2021 6:57 PM AIR BAG BUILDER Rule Out COVID-19 10/28/2021 10/28/2021 10/29/2021 11:41 AM CDT Rule Out COVID-19 09/14/2023 09/14/2023 09/14/2023 6:00 PM CDT documented as of this encounter Care Teams Criminal Attorney Relationship Specialty Start Date End Date Gilberto Weathers MD [address] [place], [place] [id number] PCP - General Internal Medicine 01/13/16 Gilberto Weathers MD [address] [place], [place] [address] Assigned PCP 06/05/18 03/18/19 Kiki Acevedo [facility] [address] [place] [address] Pharmacist Pharmacist 11/08/18 04/29/21 Mariah Mcmanus, [facility] [address] [facility] [address] [place] [address] Pharmacist Pharmacist 12/01/18 01/04/19 Nancy Martin, DIRECTOR MEDICAL AFFAIRS [address] [address] Assigned PCP 03/19/19 03/16/20 Du Serrano MD [address] [place] [id number] Assigned PCP 03/17/20 03/30/20 Nancy Martin, [facility] MEDICAL AFFAIRS [address] [place] [address] Assigned PCP 03/31/20 12/14/20 Sheila Haney MD [address] [place] [address] Assigned PCP 12/15/20 01/04/21 Finn Harris MD [address] [place] [address] Endocrinology, Diabetes, and Metabolism 12/23/20 Wanda Bautista MD [address] [place] [address] Ophthalmology 12/31/20 Gilberto Weathers MD [address] [place] [address] Assigned PCP 01/05/21 Finn Harris MD NO INFO AVAILABLE Assigned Endocrinology Provider 02/09/21 07/03/22 Wanda Bautista MD [address] [place] [address] Assigned Surgical Provider 02/02/21 09/11/22 Mariah Mcmanus, [facility] [address] [address] Assigned MTM Pharmacist 10/18/2102/06 Sarah Castañeda [facility] [address] [place] [address] [place] [address] Pharmacist 02/03/22 02/23/22 Mariah Mcmanus, [facility] [address] [address] Assigned MTM Pharmacist 02/18/2202/21 Ky Marcos MD [address] [place] [address] Physician Endocrinology, Diabetes, and Metabolism 02/20/22 Ky Marcos MD [address] [place] [address] Assigned Endocrinology Provider 07/04/22 01/13/24 Na Ibarra [facility] [address] [place] [address] Pharmacist Pharmacist 12/21/22 documented as of this encounter
--- OUTSIDE RECORDS SUMMARY | 2024-02-22 21:33 | XMS_ITS | Encounter Summary ---
Author Organization [place] Address [address] [place] [address] Care Team Providers Care Cat Cracker Operator Name Role Phone Gilberto Weathers MD Primary Care Provider Abbie Molina APRN SUPERVISOR [employer] Unavailable [phone] Gilberto Weathers MD Unavailable [phone] Gilberto Weathers MD Unavailable [phone] Kiki Acevedo [facility] Unavailable Mariah Mcmanus [facility] Unavailable [phone] Nancy Martin MAILS SUPERVISOR Unavailable Du Serrano MD Unavailable [phone] Nancy Martin MAILS SUPERVISOR Unavailable Sheila Haney MD Unavailable Finn Harris MD Unavailable Shirin vailable Wanda Bautista MD Unavailable [phone] Gilberto Weathers MD Unavailable Finn Harris MD Unavailable Shirin vailable Wanda Bautista MD Unavailable [phone] Mariah Mcmanus [facility] Unavailable Sarah Castañeda [facility] Unavailable Mariah Mcmanus [facility] Unavailable Ky Marcos MD Unavailable Ky Marcos MD Unavailable Na Ibarra [facility] Unavailable [phone] Reason for Visit * Reason Onset Date Comments Diabetes Education 06/10/2017 Encounter Details Date Type Department Care Team (Late st Contact Info) Description 06/10/[address] [facility] [address] [place] [address] Abbie Molina APRN SUPERVISOR [employer] [address] [place] [address] Diabetes Education Social History Tobacco [...] outreach attempt within 1 week. Anish Chavez [place] [facility] Scheduling /MOULD OPERATOR documented in this encounter Plan of Treatment Not on file documented as of this encounter Visit Diagnoses Not on filedocumented in this encounter Additional Health Concerns Infection Onset Date Last Indicated Resolved Time Rule Out COVID-19 05/12/2021 05/12/2021 05/12/2021 12:08 PM RIP/MOULD OPERATOR COVID-19 05/12/2021 05/12/2021 06/02/2021 11:3 9 PM RIP/MOULD OPERATOR Rule Out COVID-19 06/10/2021 06/10/2021 06/10/2021 6:57 PM RIP/MOULD OPERATOR Rule Out COVID-19 10/28/2021 10/28/202110/2910/29/2021 11:41 AM CDT Rule Out COVID-19 09/14/2023 09/14/2023 09/14/2023 6:00 PM CDT documented as of this encounter Care Teams Cat Cracker Operator Relationship Specialty Start Date End Date Gilberto Weathers MD [address] [place] [address] PCP - General Internal Medicine 01/13/16 Abbie Molina APRN SUPER[employer] [address] [place], [place] [address] PCP - Assigned PCP 06/06/17 06/04/18 Gilberto Weathers MD [address] [place] [address] PCP - Assigned PCP 06/05/18 07/26/18 Gilberto Weathers MD [address] [place] [address] Assigned PCP 06/05/18 03/18/19 Kiki Acevedo, [facility] [address] [place] [address] Pharmacist Pharmacist 11/08/18 04/29/21 Mariah Mcmanus, [facility] [address] [facility] [address] [place] [address] Pharmacist Pharmacist 12/01/18 01/04/19 Nancy Martin, MAILS SUPERVISOR [address] [facility], [address] [address] Assigned PCP 03/19/19 03/16/20 Du Serrano MD [address] [place] [address] Assigned PCP 03/17/20 03/30/20 Nancy Martin MAILS SUPERVISOR [address] [facility], [address] [address] Assigned PCP 03/31/20 12/14/20 Sheila Haney MD [address] [place] [address] Assigned PCP 12/15/20 01/04/21 Finn Harris MD [address] [place] [address] Endocrinology, Diabetes, and Metabolism 12/23/20 Wanda Bautista MD [address] [place] [address] MD Ophthalmology 12/31/20 Gilberto Weathers MD [address] [place] [address] Assigned PCP 01/05/21 Finn Harris MD NO INFO AVAILABLE Assigned Endocrinology Provider 02/09/21 07/03/22 Wanda Bautista MD [address] [place] [address] Assigned Surgical Provider 02/02/21 09/11/22 Mariah Mcmanus, [facility] [address] [place], [place] [address] [place] [address] Assigned MTM Pharmacist 10/18/2102/06 Sarah Castañeda [facility] [address] [facility] [address] Pharmacist 02/03/22 02/23/22 Mariah Mcmanus, [facility] [address] [facility] [address] [place] [address] Assigned MTM Pharmacist 02/18/2202/21 Ky Marcos MD [address] [place] [address] Physician Endocrinology, Diabetes, and Metabolism 02/20/22 Ky Marcos MD [address] [place] [address] Assigned Endocrinology Provider 07/04/22 01/13/24 Na Ibarra [facility] [address] [place] [address] Pharmacist Pharmacist 12/21/22 documented as of this encounter
--- OUTSIDE RECORDS SUMMARY | 2024-02-22 21:33 | XMS_ITS | Encounter Summary ---
Author Organization [facility] Address [address] [place] [address] Care Team Providers Care Powered Bridge Specialist Name Role Phone Gilberto Weathers MD Primary Care Provider [phone] Finn Harris MD Unavailable Shirin vailable Wanda Bautista MD Unavailable [phone] Gilberto Weathers MD Unavailable [phone] Finn Harris MD Unavailable Shirin vailable Wanda Bautista MD Unavailable [phone] Mariah Mcmanus [facility] Unavailable [phone] Sarah Castañeda [facility] Unavailable [phone] [facility] Unavailable [phone] Ky Marcos MD Unavailable Ky Marcos MD Unavailable Na Ibarra [facility] Unavailable [phone] Encounter Details Date Type Department Care Team [...] COVID-19 05/12/2021 05/12/2021 06/02/2021 11:3 9 PM CLASSROOM AIDE Rule Out COVID-19 06/10/2021 06/10/2021 06/10/2021 6:57 PM CLASSROOM AIDE Rule Out COVID-19 10/28/2021 10/28/2021 10/29/2021 11:41 AM CDT Rule Out COVID-19 09/14/2023 09/14/2023 09/14/2023 6:00 PM CDT documented as of this encounter Care Teams Powered Bridge Specialist Relationship Specialty Start Date End Date Gilberto Weathers MD [address] [address] PCP - General Internal Medicine 01/13/16 Finn Harris MD [address] [address] Endocrinology, Diabetes, and Metabolism 12/23/20 Wanda Bautista MD [address] [place] [address] Ophthalmology 12/31/20 Gilberto Weathers MD [address] [place] [address] Assigned PCP 01/05/21 Finn Harris MD NO INFO AVAILABLE Assigned Endocrinology Provider 02/09/21 07/03/22 Wanda Bautista MD [address] [place] [address] Assigned Surgical Provider 02/02/21 09/11/22 Mariah Mcmanus, [facility] [address] [address] Assigned MTM Pharmacist 10/18/2102/06 [facility] [address] [facility] [place] [address] Pharmacist 02/03/22 02/23/22 Mariah Mcmanus, [facility] [address] [address] Assigned MTM Pharmacist 02/18/2202/21 Ky Marcos MD [address] [place] [address] Physician Endocrinology, Diabetes, and Metabolism 02/20/22 Ky Marcos MD [address] [place] [address] Assigned Endocrinology Provider 07/04/22 01/13/24 Na Ibarra [facility] [address] [place] [address] Pharmacist Pharmacist 12/21/22 documented as of this encounter
--- OUTSIDE RECORDS SUMMARY | 2024-02-22 21:33 | XMS_ITS ---
Author Organization [place] Address [address] [place] [address] Care Team Providers Care Supervisor Toy Assembly Name Role Phone Gilberto Weathers MD Primary Care Provider [phone] Finn Harris MD Unavailable Shirin Wanda Eubanks MD Unavailable [phone] Gilberto Weathers MD Unavailable [phone] Ky Marcos MD Unavailable Na Ibarra [facility] Unavailable [phone] Diabetes Self-Management Education Status:Identified (Enrolling) Start date:12/27/2023 Continued Care and Services Coordination
--- OUTSIDE RECORDS SUMMARY | 2024-02-22 21:33 | XMS_ITS | Encounter Summary ---
Author Organization [place] Address [address] [place] [address] Care Team Providers Care Sock Boarder Name Role Phone Gilberto Weathers MD Primary Care Provider [phone] Finn Harris MD Unavailable Shirin vailable Wanda Bautista MD Unavailable [phone] Gilberto Weathers MD Unavailable [phone] Finn Harris MD Unavailable Shirin vailable Wanda Bautista MD Unavailable [phone] Mariah Mcmanus [facility] Unavailable Sarah Castañeda [facility] Unavailable Mariah Mcmanus [facility] Unavailable Ky Marcos MD Unavailable Ky Marcos MD Unavailable Na Ibarra [facility] Unavailable [phone] Encounter Details Date Type Department Care Team (Late st Contact Info) Description 12/04/2021 [facility] Medical Advice [address] [place] [address] Mariah Mcmanus, [facility] [address] [facility] [address] [place] [address] Social History Tobacco Use Types [...] documented as of this encounter Care Teams Sock Boarder Relationship Specialty Start Date End Date Gilberto Weathers MD [address] [place] [address] PCP - General Internal Medicine 01/13/16 Finn Harris MD [address] [place] [address] Endocrinology, Diabetes, and Metabolism 12/23/20 Wanda Bautista MD [address] [place] [address] Ophthalmology 12/31/20 Gilberto Weathers MD [address] [place] [address] Assigned PCP 01/05/21 Finn Harris MD NO INFO AVAILABLE Assigned Endocrinology Provider 02/09/21 07/03/22 Wanda Bautista MD [address] [place] [address] Assigned Surgical Provider 02/02/21 09/11/22 Mariah Mcmanus, [facility] 420 [facility] [address] [place] [address] Assigned MTM Pharmacist 10/18/2102/06 Sarah Castañeda [facility] [address] [place] [address] Pharmacist 02/03/22 02/23/22 Mariah Mcmanus, [facility] [address] [facility] [address] [place] [address] Assigned MTM Pharmacist 02/18/2202/21 Ky Marcos MD [address] [place] [address] Physician Endocrinology, Diabetes, and Metabolism 02/20/22 Ky Marcos MD [address] [place] [address] Assigned Endocrinology Provider 07/04/22 01/13/24 Na Ibarra [facility] [address] [place] [address] Pharmacist Pharmacist 12/21/22 documented as of this encounter
--- OUTSIDE RECORDS SUMMARY | 2024-02-22 21:33 | XMS_ITS | Encounter Summary ---
Author Organization [facility] Address [address] [place] [address] Care Team Providers Care Chemical Lab Technician Name Role Phone Gilberto Weathers MD Primary Care Provider [phone] Finn Harris MD Unavailable Shirin Wanda Eubanks MD Unavailable [phone] Gilberto Weathers MD Unavailable [phone] Ky Marcos MD Unavailable Ky Marcos MD Unavailable Na Ibarra [facility] Unavailable [phone] Encounter Details Date Type Department Care Team (Latest Contact Info) Description 11/23/2023 Travel Social History Tobacco Use Types Packs/Day [...] re latives? Once a week 11/23/2023 Attends Church Services Not on file 11/22 Active Member of Clubs or Organizations Not on f ile 11/23/2023 Attends Club or Organization Meetings Not on timoteo e 11/23/2023 Marital Status Not on file 11/23/2023 PHQ-2 Answer Date Recorded PHQ-2 Score 0 06/04/2023 [facility] [place] of Occupat ional Health - Occupational Stress [...] in an abandoned building, in an overnight usp, or couch-surfing.) Yes 11/23/2023 Are you worried [...] on filedocumented in this encounter Care Teams Chemical Lab Technician Relationship Specialty Start Date End Date Gilberto Weathers MD [address] [place] [address] PCP - General Internal Medicine 01/13/16 Finn Harris MD [address] [place] [address] Endocrinology, Diabetes, and Metabolism 12/23/20 Wanda Bautista MD [address] [place] [address] Ophthalmology 12/31/20 Gilberto Weathers MD [address] [place] [address] Assigned PCP 01/05/21 Ky Marcos MD [address] [place] [address] Physician Endocrinology, Diabetes, and Metabolism 02/20/22 Ky Marcos MD [address] [place] [address] Assigned Endocrinology Provider 07/04/22 01/13/24 Na Ibarra [facility] [address] [place] [address] Pharmacist Pharmacist 12/21/22 documented as of this encounter
--- OUTSIDE RECORDS SUMMARY | 2024-02-22 21:33 | XMS_ITS | Encounter Summary ---
Author Organization [place] Address [address] [place] [address] Care Team Providers Care Environmental Health And Safety Leader Name Role Phone Gilberto Weathers MD Primary Care Provider [phone] Finn Harris MD Unavailable Shirin Wanda Eubanks MD Unavailable [phone] Gilberto Weathers MD Unavailable [phone] Ky Marcos MD Unavailable Ky Marcos MD Unavailable Na Ibarra [facility] Unavailable [phone] Reason for Visit * Reason Onset Date Comments Same Day Appointment 11/22/2023 Virtual Encounter Details Date Type Department Care Team (Late st Contact Info) Description 11/22/[address] [place] [address] Gilberto Weathers MD [address] [place] [address] Same Day Appointment (Virtual ) Social History Tobacco Use Types Packs/Day Years [...] Answer Date Recorded PHQ-2 Score 0 06/04/2023 [facility] - Occupational Stress Questionnaire Answer Date [...] in an abandoned building, in an overnight long-term, or couch-surfing.) Yes 11/23/2023 Are you worried [...] encounter Miscellaneous Notes * Telephone Encounter - Domitila Forman - 11/22/2023 4:25 PM CDT Pt called stating that he was calling to scheduled. Pt scheduled per provider note. Domitila Real Title Supervisor * Telephone Encounter - Gilberto Weathers MD - 11/22/2023 3:29 PM CDT I can see him in clinic tomorrow at 11:30 He needs office visit for his annual physical, not VV. * Telephone Encounter - Joana Johnson RN - 11/22/2023 2:43 PM CDT See below message patient is returning call and would like to be seen today says is awaiting call back about this. Please review and advise. Says he needs to be seen says he's diabetic and has appointment at end of month for endocrine. Kayla has missed a lot of work due to this and needs letter for employer. Can VV be rescheduled so he can further discuss with Dr. Weathers? Joana Johnson R.N. * Telephone Encounter - Corrina Ambrose - 11/22/2023 1:46 PM CDT Reason for Call: Appointment Request Patient requesting this type of appt: follow up on documentaion Requested provider: Gilberto Weathers Reason patient unable to be scheduled: missed appt for today. When does patient want to be seen/preferred time: Same day Comments: Patient thought his appt for today was later today, however, it was at 12:55 and he missed his virtual appt. He would like to know if Dr. Weathers would still have time to accommodate a virtual for today. Eihter way, please call patient back to let him know. Could we [facility] this information to [facility] or would you prefer to receive a phone call?: Patient would prefer a phone call Okay to leave a detailed message?: Yes at Cell number on file: Telephone Information: Call taken on 11/22/2023 at 1:46 PM by CORRINA AMBROSE documented in this encounter Plan of Treatment Not on file documented as of this encounter Visit Diagnoses Not on filedocumented in this encounter Care Teams Environmental Health And Safety Leader Relationship Specialty Start Date End Date Gilberto Weathers MD [address] [place] [address] PCP - General Internal Medicine 01/13/16 Finn Harris MD [address] [place] [address] Endocrinology, Diabetes, and Metabolism 12/23/20 Wanda Bautista MD [address] [place] [address] Ophthalmology 12/31/20 Gilberto Weathers MD [address] [address] Assigned PCP 01/05/21 Ky Marcos MD [address] [place] [address] Physician Endocrinology, Diabetes, and Metabolism 02/20/22 Ky Marcos MD [address] [place] [address] Assigned Endocrinology Provider 07/04/22 01/13/24 Na Ibarra RPH [address] [place] [address] Pharmacist Pharmacist 12/21/22 documented as of this encounter
--- OUTSIDE RECORDS SUMMARY | 2024-02-22 21:33 | XMS_ITS | Encounter Summary ---
Author Organization [facility] Address [address] [place] [address] Care Team Providers Care Title One Teacher Name Role Phone Gilberto Weathers MD Primary Care Provider [phone] Kiki Acevedo [facility] Unavailable Nancy Martin WASHING MACHINE MECHANIC Unavailable Du Serrano MD Unavailable [phone] Nancy Martin WASHING MACHINE MECHANIC Unavailable Sheila Haney MD Unavailable Finn Harris MD Unavailable Shirin vailable Wanda Bautista MD Unavailable Gilberto Weathers MD Unavailable Finn Harris MD Unavailable Shirin vailable Wanda Bautista MD Unavailable Mariah Mcmanus [facility] Unavailable Sarah Castañeda [facility] Unavailable [phone] Mariah Mcmanus [facility] Unavailable Ky Marcos MD Unavailable Ky Marcos MD Unavailable Na Ibarra [facility] Unavailable Reason for Visit * Reason Onset Date Comments Forms 03/27/2019 Work forms Encounter Details Date Type Department Care Team (Late st Contact Info) Description 03/27/2019 [facility] Medical Advice [facility] [address] [place] [address] Gilberto Weathers MD [address] [place] [address] Forms (Work forms) Social History Tobacco Use [...] Mervat Miranda RN - 03/27/2019 3:55 PM PROVIDER ENGAGEMENT EXECUTIVE See his Zapl[employer] message. He missed his appt today. IDER ENGAGEMENT EXECUTIVE documented in this encounter Plan of Treatment Not on file documented as of this encounter Visit Diagnoses Not on filedocumented in this encounter Additional Health Concerns Infection Onset Date Last Indicated Resolved Time Rule Out COVID-19 05/12/2021 05/12/2021 05/12/2021 12:08 PM PROVIDER ENGAGEMENT EXECUTIVE COVID-19 05/12/2021 05/12/2021 06/02/2021 11:3 9 PM PROVIDER ENGAGEMENT EXECUTIVE Rule Out COVID-19 06/10/2021 06/10/2021 06/10/2021 6:57 PM PROVIDER ENGAGEMENT EXECUTIVE Rule Out COVID-19 10/28/2021 10/28/2021 10/29/2021 11:41 AM CDT Rule Out COVID-19 09/14/2023 09/14/2023 09/14/2023 6:00 PM CDT documented as of this encounter Care Teams Title One Teacher Relationship Specialty Start Date End Date Gilberto Weathers MD [address] [place] [address] PCP - General Internal Medicine 01/13/16 Kiki Acevedo [facility] [address] [address] Pharmacist Pharmacist 11/08/18 04/29/21 Nancy Martin WASHING MACHINE MECHANIC [address] [place] [address] Assigned PCP 03/19/19 03/16/20 Du Serrano MD [address] [place] [address] Assigned PCP 03/17/20 03/30/20 Nancy Martin NP [address] [place] [address] Assigned PCP 03/31/20 12/14/20 Sheila Haney MD [address] [place] [address] Assigned PCP 12/15/20 01/04/21 Finn Harris MD [address] [place] [address] Endocrinology, Diabetes, and Metabolism 12/23/20 Wanda Bautista MD [address] [place] [address] Ophthalmology 12/31/20 Gilberto Weathers MD [address] [place] [address] Assigned PCP 01/05/21 Finn Harris MD NO INFO AVAILABLE Assigned Endocrinology Provider 02/09/21 07/03/22 Wanda Bautista MD [address] [place] [address] Assigned Surgical Provider 02/02/21 09/11/22 Mariah Mcmanus, [facility] [address] [address] Assigned MTM Pharmacist 10/18/2102/06 Sarah Castañeda [facility] [address] [facility] [place] [address] Pharmacist 02/03/22 02/23/22 Mariah Mcmanus, [facility] [address] [address] Assigned MTM Pharmacist 02/18/2202/21 Ky Marcos MD [address] [place] [address] Physician Endocrinology, Diabetes, and Metabolism 02/20/22 Ky Marcos MD [address] [place] [address] Assigned Endocrinology Provider 07/04/22 01/13/24 Na Ibarra [facility] [place] [address] Pharmacist Pharmacist 12/21/22 documented as of this encounter
--- OUTSIDE RECORDS SUMMARY | 2024-02-22 21:33 | XMS_ITS | Encounter Summary ---
Author Organization [facility] Address [address] [place] [address] Care Team Providers Care Director Consumer Name Role Phone Gilberto Weathers MD Primary Care Provider [phone] Finn Harris MD Unavailable Shirin Wanda Eubanks MD Unavailable [phone] Gilberto Weathers MD Unavailable [phone] Ky Marcos MD Unavailable Ky Marcos MD Unavailable Na Ibarra [facility] Unavailable [phone] Encounter Details Date Type Department Care Team (Late st Contact Info) Description 11/12/2023 [facility] Medical Advice [address] [place] [phone] Wanda Stewart, WAREHOUSE PACKAGING SUPERVISOR Social History Tobacco Use Types Packs/Day Years [...] filedocumented in this encounter Care Teams Director Consumer Relationship Specialty Start Date End Date Gilberto Weathers MD [address] [place] [address] PCP - General Internal Medicine 01/13/16 Finn Harris MD [address] [place] [address] Endocrinology, Diabetes, and Metabolism 12/23/20 Wanda Bautista MD [address] [place] [address] MD Ophthalmology 12/31/20 Gilberto Weathers MD [address] [place] [address] Assigned PCP 01/05/21 Ky Marcos MD [address] [place] [address] Physician Endocrinology, Diabetes, and Metabolism 02/20/22 Ky Marcos MD [address] [facility] [place] [address] Assigned Endocrinology Provider 07/04/22 01/13/24 Na Ibarra R[facility] [address] [place], [place] [address] Pharmacist Pharmacist 12/21/22 documented as of this encounter
--- OUTSIDE RECORDS SUMMARY | 2024-02-22 21:33 | XMS_ITS | Encounter Summary ---
Author Organization [place] Address [address] [place] [address] Care Team Providers Care Statistical Typist Name Role Phone Gilberto Weathers MD Primary Care Provider [phone] Finn Harris MD Unavailable Shirin vailable Wanda Bautista MD Unavailable [phone] Gilberto Weathers MD Unavailable [phone] Finn Harris MD Unavailable Shirin vailable Wanda Bautista MD Unavailable [phone] Mariah Mcmanus [facility] Unavailable [phone] Ky Marcos MD Unavailable Ky Marcos MD Unavailable Na Ibarra [facility] Unavailable [phone] Encounter Details Date Type Department Care Team (Late st Contact Info) Description 06/09/2022 [facility] [address] [place] [address] [place] Social History Tobacco Use Types Packs/Day Years [...] documented as of this encounter Care Teams Statistical Typist Relationship Specialty Start Date End Date Gilberto Weathers MD [address] [place] [address] PCP - General Internal Medicine 01/13/16 Finn Harris MD [address] [place] [address] Endocrinology, Diabetes, and Metabolism 12/23/20 Wanda Bautista MD [address] [place] [address] Ophthalmology 12/31/20 Gilberto Weathers MD [address] [place] [address] Assigned PCP 01/05/21 Finn Harris MD NO INFO AVAILABLE Assigned Endocrinology Provider 02/09/21 07/03/22 Wanda Bautista MD [address] [place] [address] Assigned Surgical Provider 02/02/21 09/11/22 Mariah Mcmanus, [facility] 420 [facility] [address] [place] [address] Assigned MTM Pharmacist 02/18/2202/21 Ky Marcos MD [address] [place] [address] Physician Endocrinology, Diabetes, and Metabolism 02/20/22 Ky Marcos MD [address] [place] [address] Assigned Endocrinology Provider 07/04/22 01/13/24 Na Ibarra, [facility] [address] [place], [place] [address] Pharmacist Pharmacist 12/21/22 documented as of this encounter
--- OUTSIDE RECORDS SUMMARY | 2024-02-22 21:33 | XMS_ITS | Encounter Summary ---
Author Organization [facility] Address [address] [place] [address]. [place] [address] Care Team Providers Care Terrazzo Finisher Name Role Phone Gilberto Weathers MD Primary Care Provider [phone] Kiki Acevedo [facility] Unavailable Finn Harris MD Unavailable Shirin vailable Wanda Bautista MD Unavailable [phone] Gilberto Weathers MD Unavailable [phone] Finn Harris MD Unavailable Shirin vailable Wanda Bautista MD Unavailable [phone] Mariah Mcmanus [facility] Unavailable [phone] Sarah Castañeda [facility] Unavailable [phone] SchwMariah louis [facility] Unavailable [phone] Ky Marcos MD Unavailable Ky Marcos MD Unavailable Na Ibarra [facility] Unavailable [phone] Encounter Details Date Type Department Care Team (Late st Contact Info) Description 02/04/2021 [facility] [place] [address] [address] Nohelia Harmon Social History Tobacco [...] Out COVID-19 05/12/2021 05/12/2021 05/12/2021 12:08 PM WASTE DISPOSAL LEAKAGE TESTER COVID-19 05/12/2021 05/12/2021 06/02/2021 11:3 9 PM WASTE DISPOSAL LEAKAGE TESTER Rule Out COVID-19 06/10/2021 06/10/2021 06/10/2021 6:57 PM WASTE DISPOSAL LEAKAGE TESTER Rule Out COVID-19 10/28/2021 10/28/2021 10/29/2021 11:41 AM CDT Rule Out COVID-19 09/14/2023 09/14/2023 09/14/2023 6:00 PM CDT documented as of this encounter Care Teams Terrazzo Finisher Relationship Specialty Start Date End Date Gilberto Weathers MD [address] [place] [address] PCP - General Internal Medicine 01/13/16 Kiki Acevedo, [facility] [address] [place] [address] Pharmacist Pharmacist 11/08/18 04/29/21 Finn Harris MD [address] [place] [address] Endocrinology, Diabetes, and Metabolism 12/23/20 Wanda Bautista MD [address] [place] [address] Ophthalmology 12/31/20 Gilberto Weathers MD [address] [place] [address] Assigned PCP 01/05/21 Finn Harris MD NO INFO AVAILABLE Assigned Endocrinology Provider 02/09/21 07/03/22 Wanda Bautista MD [address] [place], [place] [address] Assigned Surgical Provider 02/02/21 09/11/22 Mariah Mcmanus, [facility] 420 [facility] [address] [place], [place] [address] Assigned MTM Pharmacist 10/18/2102/06 [facility] [address] [place] [address] [place] [address] Pharmacist 02/03/22 02/23/22 [facility] 420 [facility] [address] [place] [address] Assigned MTM Pharmacist 02/18/2202/21 Ky Marcos MD [address] [place] [address] Physician Endocrinology, Diabetes, and Metabolism 02/20/22 Ky Marcos MD [address] [place] [address] Assigned Endocrinology Provider 07/04/22 01/13/24 Na Ibarra [facility] [address] [place] [address] Pharmacist Pharmacist 12/21/22 documented as of this encounter
--- OUTSIDE RECORDS SUMMARY | 2024-02-22 21:33 | XMS_ITS | Encounter Summary ---
Author Organization [place] Address [address] [place] [address] Care Team Providers Care Inshore Undersea Warfare Officer Name Role Phone Yves Weathers MD Primary Care Provider [phone] Norma Harris MD Unavailable Shirin Wanda Eubanks MD Unavailable [phone] Yves Weathers MD Unavailable [phone] Ky Marcos MD Unavailable Ky Marcos MD Unavailable Na Ibarra [facility] Unavailable [phone] Reason for Referral * Diagnostic Imaging XR (Routine) - Pending Review Specialty Diagnoses / Procedures Referred By Jon barker Referred To Contact Radiology. Diagnoses Encounter for preventative adult health care examination Acute cough Procedures XR Chest 2 Views Yves Weathers MD [address] [place] [address] Referral ID Status Reason Start Date Expiration Date V isits Requested Visits Authorized [id number] Pending Review 11/23/2023 11/22/2024 1 1 * Consultation (Routine: Next available opening) - Pending Review Specialty Diagnoses / Procedures Referred By Jon barker Referred To Contact Endocrinology, Diabetes, and Metabolism Diagnoses Type 2 diabetes mellitus with hyperglycemia, with long-term current use of insulin (H) Yves Weathers MD [address] [place] [address] Referral ID Status Reason Start Date Expiration Date V isits Requested Visits Authorized [id number] Pending Review 11/23/2023 11/22/2024 1 1 Question Answer Reason for Referral: Diabetes Scheduling Instructions: [facility] will call you to coordinate your care as prescribed by the provider. If you don? t hear from a student services representative within 2 business days, please call [phone]. Comments Please be aware that coverage of these services is subject to the terms and limitations of your health insurance plan. Call member services at your health plan with any benefit or coverage questions. [facility] will call you to coordinate your care as prescribed by the provider. If you don? t hear from a student services representative within 2 business days, please call [phone]. Reason for Visit * Reason Comments Physical fasting Encounter Details Date Type Department Care Team (Late st Contact Info) Description 11/23/2023 11:30 AM CDT Office Visit [address] [place] [address] Yves Weathers MD [address] [place] [address] Encounter for preventative adult health care examination (Primary Dx); Acute cough; Type 1 diabetes mellitus with other specified complication (H); Hyperlipidemia LDL goal <100 Social History Tobacco Use Types Packs/Day Years [...] re latives? Once a week 11/23/2023 Attends Muslim Services Not on file 11/22 Active Member of Clubs or Organizations Not on f ile 11/23/2023 Attends Club or Organization Meetings Not on timoteo e 11/23/2023 Marital Status Not on file 11/23/2023 PHQ-2 Answer Date Recorded PHQ-2 Score 0 06/04/2023 [facility] of Occupat ional Health - Occupational Stress [...] in an abandoned building, in an overnight correction, or couch-surfing.) Yes 11/23/2023 Are you worried [...] Mass Index 26.18 11/23/2023 11:21 AM CDT documented in this encounter Progress Notes * Yves Weathers MD - 11/23/2023 11:30 AM CDT Preventive Care Visit [facility] Yves Weathers MD, Internal Medicine Nov 23, 2023 Assessment & Plan Encounter for preventative adult health care examination advised regular aerobic activity, low cholesterol, low salt diet, wearing seat belt, self examinations, sunscreen protection.Obtain screening cholesterol, immunizations reviewed. - Lipid panel reflex to direct LDL Fasting - CBC with platelets - Comprehensive metabolic panel (BMP + Alb, Alk Phos, ALT, AST, Total. Bili, TP) - TSH with free T4 reflex - UA with Microscopic reflex to Culture - lab collect - Albumin Random Urine Quantitative with Creat Ratio - XR Chest 2 Views; Future - Hemoglobin A1c - UA Microscopic with Reflex to Culture Acute cough Assess CXR - XR Chest 2 Views; Future - OFFICE/OUTPT VISIT,EST,LEVL III Type 1 diabetes mellitus with other specified complication (H) Increase Lantus and intensify insulin sliding scale Refer to endocrinology for possible insulin pump Patient has been advised of split billing requirements and indicates understanding: Yes BMI Estimated body mass index is 26.18 kg/m?? as calculated from the following: Height as of this encounter: 1.803 m (5' 11). Weight as of this encounter: 85.1 kg (187 lb 11.2 oz). Counseling Appropriate preventive services were discussed with this patient, including applicable screening asappropriate for fall prevention, nutrition, physical activity, Tobacco-use cessation, weight loss and cognition. Checklist reviewing preventive services available has been given to the patient. Reviewed patient's diet, addressing concerns and/or questions. He is at risk for lack of exercise and has been provided with information to increase physical activity for the benefit of his well-being. See Patient Instructions Subjective Ana is a 38 year old, presenting for the following: Physical (fasting) 11/23/2023 11:16 AM Additional Questions Roomed by shilpa Accompanied by self 11/23/2023 11:16 AM Patient Reported Additional Medications Patient reports taking the following new medications none Health Care Directive Patient does not have a Health Care Directive or Living Will: Discussed advance care planning with patient; information given to patient to review. HPI Has H/O DM. On diet , exercise and insulin. Blood sugars are not controlled- always over 150, up to350. Has LE, feet parestesias. No hypoglycemias. Has complaints of cough with phlegm production, for a week. Feels tired. No CP or SOB. Smokes cigarettes 10 / day 11/23/2023 General Health How would you rate your overall physical health? Excellent Feel stress (tense, anxious, or unable to sleep) To some extent (!) STRESS CONCERN 11/23/2023 Nutrition Three or more servings of calcium each day? (!) I DON'T KNOW Diet: I don't know How many servings of fruit and vegetables per day? (!) I DON'T KNOW How many sweetened beverages each day? (!) I DON'T KNOW 11/23/2023 Exercise Days per week of moderate/strenous exercise 2 days (!) EXERCISE CONCERN 11/23/2023 Social Factors Frequency of gathering with friends or relatives Once a week Worry food won't last until get money to buy more No Food not last or not have enough money for food? No Do you have housing? (Housing is defined as stable permanent housing and does not include staying ouside in a car, in a tent, in an abandoned building, in an overnight correction, or couch-surfing.) Yes Are you worried about losing your housing? Yes Lack of transportation? No Unable to get utilities (heat,electricity)? No Want help with housing or utility concern? (!) YES (!) HOUSING CONCERN PRESENT 11/23/2023 Dental Dentist two times every year? Yes 11/23/2023 TB Screening Were you born outside of the [place]? No Today's PHQ-2 Score: 06/04/2023 10:47 AM PHQ-2 (??1998 [employer]) Q1: Little interest or pleasure in doing things 0 Q2: Feeling down, depressed or hopeless 0 PHQ-2 Score 0 11/23/2023 Substance Use Alcohol more than 3/day or more than 7/wk Not Applicable Do you use any other substances recreationally? No Social History Tobacco Use Smoking status: Every Day Current packs/day: 0.50 Average packs/day: 0.5 packs/day for 5.0 years (2.5 ttl pk-yrs) Types: Cigarettes Passive exposure: Current Smokeless tobacco: Never Vaping Use Vaping status: Never Used Substance Use Topics Alcohol use: No Alcohol/week: 0.0 standard drinks of alcohol Drug use: No 11/23/2023 STI Screening New sexual partner(s) since last STI/HIV test? No 11/23/2023 Contraception/Family Planning Questions about contraception or family planning No Reviewed and updated as needed this visit by Provider Lab work is in process Labs reviewed in [facility] Review of Systems Constitutional, HEENT, cardiovascular, pulmonary, GI, , musculoskeletal, neuro, skin, endocrine and psych systems are negative, except as otherwise noted. Objective Exam BP 124/78 (BP Location: Right arm, Patient Position: Sitting, Cuff Size: Adult Regular) Pulse 104 Temp 97.8 ??F (36.6 ??C) (Oral) Resp 16 Ht 1.803 m (5' 11) Wt 85.1 kg (187 lb 11.2 oz) SpO2 99% BMI 26.18 kg/m?? Estimated body mass index is 26.18 kg/m?? as calculated from the following: Height as of this encounter: 1.803 m (5' 11). Weight as of this encounter: 85.1 kg (187 lb 11.2 oz). Physical Exam GENERAL: alert and no distress EYES: Eyes grossly normal to inspection, PERRL and conjunctivae and sclerae normal HENT: ear canals and TM's normal, nose and mouth without ulcers or lesions NECK: no adenopathy, no asymmetry, masses, or scars RESP: lungs clear to auscultation - no rales, rhonchi or wheezes CV: regular rate and rhythm, normal S1 S2, no S3 or S4, no murmur, click or rub, no peripheral edema ABDOMEN: soft, nontender, no hepatosplenomegaly, no masses and bowel sounds normal MS: no gross musculoskeletal defects noted, no edema SKIN: no suspicious lesions or rashes NEURO: Normal strength and tone, mentation intact and speech normal PSYCH: mentation appears normal, affect normal/bright Signed Electronically by: Yves Weathers MD documented in this encounter Miscellaneous Notes * Addendum Note - Yves Weathers MD - 11/23/2023 11:30 AM CDTAddended by: YVES WEATHERS on: 11/24/2023 11:48 AM Modules accepted: Orders documented in this encounter Plan of Treatment Scheduled Referrals Name Type Priority Associated Diagnoses Order Schedule Adult Endocrinology Tram Operator Referral Referral Routine: Next available opening Expected: 11/23/2023 (Approximate), Expires: 11/22/2024 documented as of this encounter Procedures Procedure Name Priority Date/Time Associated Diagnosis Comments UA MICROSCOPIC WITH REFLEX TO CULTURE Routine [...] Encounter for preventative adult health care examination documented in this encounter Results * XR Chest 2 Views (11/23/2023 12:21 PM CDT) Anatomical Region Laterality Modality Chest Computed Radiogr aphy Impressions 11/23/2023 2:23 PM CDT IMPRESSION: Negative chest. Lungs clear. NORMA FARMER MD SYSTEM ID: ??[id number] Narrative 11/23/2023 2:23 PM CDT CHEST TWO VIEWS ??11/23/2023 12:21 PM HISTORY: ??Acute cough. COMPARISON: 09/14/2023. Procedure Note Norma Farmer MD - 11/23/2023 CHEST TWO VIEWS 11/23/2023 12:21 PM HISTORY: Acute cough. COMPARISON: 09/14/2023. IMPRESSION: Negative chest. Lungs clear. NORMA FARMER MD SYSTEM ID: [id number] Yves Weathers MD IMG DIAGNOSTIC IMAG ING ORDERABLES [...] 12:32 PM CDT Urine Culture not indicated Yves Weathers MD LAB - URINE ORDERAB LES RI LABORATORY [facility] [address], [address] [place] [address], [facility] [phone] * (ABNORMAL) UA with Microscopic reflex to [...] 11/23/2023 12:07 PM CDT RI LABORATORY Specific [place] Urine 1.020 1.003 - 1.035 11/23/2023 12:07 [...] 12:04 PM CDT 11/23/2023 12:04 PM CDT Yves Weathers MD LAB - URINE ORDERAB LES RI LABORATORY [facility] [address], [address] [place] [address], [facility] [phone] * Albumin Random Urine Quantitative with Creat [...] control, and institution of therapy with an dnjydfzvudr-nqdifhufkm-ruxhgx (TIP) inhibitor (if the patient can tolerate it). ?? Urine URINE SPECIMEN OBTAINED BY CLEAN CATCH PROCEDURE / Unknown Non-blood Collection / Unknown 11/23/2023 12:03 PM CDT 11/23/2023 12:04 PM CDT Yves Weathers MD LAB - URINE ORDERAB LES [facility] LABORATORY [facility] [address] [facility], [address] [place] [address], [facility] * (ABNORMAL) Hemoglobin A1c (11/23/2023 11:58 AM [...] PM CDT Results confirmed by repeat test. Yves Weathers MD LAB - BLOOD ORDERAB LES RI LABORATORY [facility] [address], [address] [place] [address], [facility] [phone] * TSH with free T4 reflex (11/23/2023 11:58 AM CDT) TSH 0.50 0.30 - 4.20 uIU/mL 11/24/2023 2:20 AM CDT UU LABORATORY Blood BLOOD SPECIMEN / Unknown Venipuncture / Unknown 11/23/2023 11:58 AM CDT 11/23/2023 11:58 AM CDT Yves Weathers MD LAB - BLOOD ORDERAB LES [facility] LAB[facility]ATORY [facility] [address] [facility], [address] [place] [phone], [facility] * (ABNORMAL) Comprehensive metabolic panel (BMP + Alb, Alk Phos, ALT, AST, Total. Bili, TP) (11/23/2023 11:58 AM CDT) [facility] Sodium 137 135 - 145 mmol/L 11/24/2023 [...] 11:58 AM CDT 11/23/2023 11:58 AM CDT Yves Weathers MD LAB - BLOOD ORDERAB LES [facility] LAB[facility]ATORY [facility] [address] [facility], [address] [phone] * CBC with platelets (11/23/2023 11:58 AM [...] 11:58 AM CDT 11/23/2023 11:58 AM CDT Yves Weathers MD LAB - BLOOD ORDERAB LES RI LABORATORY [facility] [address], [address] [place] [address], [facility] [phone] * (ABNORMAL) Lipid panel reflex to direct [...] ??Greater than or equal to 220 mg/dL Yves Weathers MD LAB - BLOOD ORDERAB LES U LABORATORY [facility] [address] [facility], [address] [place] [address], [facility] documented in this encounter Visit Diagnoses Diagnosis Encounter for preventative adult health care examination- Primary Acute cough Type 1 diabetes mellitus with other specified complication (H) Hyperlipidemia LDL goal <100 Other and unspecified hyperlipidemia Encounter for preventative adult health care examination Acute cough documented in this encounter Care Teams Inshore Undersea Warfare Officer Relationship Specialty Start Date End Date Yves Weathers MD [address] [place] [address] PCP - General Internal Medicine 01/13/16 Norma Harris MD [address] [place] [address] Endocrinology, Diabetes, and Metabolism 12/23/20 Wanda Bautista MD [address] [place] [address] Ophthalmology 12/31/20 Yves Weathers MD [address] [place] [address] Assigned PCP 01/05/21 Ky Marcos MD [address] [place] [address] Physician Endocrinology, Diabetes, and Metabolism 02/20/22 Ky Marcos MD [address] [place] [address] Assigned Endocrinology Provider 07/04/22 01/13/24 Na Ibarra [facility] [address] [place] [address] Pharmacist Pharmacist 12/21/22 documented as of this encounter
--- OUTSIDE RECORDS SUMMARY | 2024-02-22 21:33 | XMS_ITS | Clinical Summary ---
Author Organization [facility] Address [place], [place] [address] Care Team Providers Care Council On Aging Director Name Role Phone Pcp, No Primary Care Provider Unavailabl e Allergies No known active allergies Medications Medication Sig Dispensed Refills Start Date End Date Status acetaminophen (Tylenol Extra Strength) 500 mg tablet Take 1,000 mg by mouth 3 times daily if needed. Max acetaminophen dose: 4000mg in 24 hrs. Active Insulin [place], Disposable, (Viki Pen Needle) 32 gauge x [...] Slow transit constipation 12/09/2020 Flu-like symptoms 12/09/2020 Family History Medical History Relation Name Comments Hypertension Father Relation Name Status Comments Father Social History Tobacco Use Types Packs/Day Years Used Date Smoking Tobacco: Every Day Cigarettes 0.5 11.7 Started: 2012 Passive Smoke Exposure: Current Smokeless [...] booster 2004 Lipids for age 35-44 2019 BMI (ht and wt on same day) for age 18+ 11/16/2023 11/15/2022 COVID-19 vaccine series ( season) 2024 08/27/2021, 08/24/2020 Influenza for age 9-49 01/23/2024 HIV for age 15-65 Completed 03/22/2014 Pneumococcal series for age 6-64 Aged Out No longer eligible b ased on patient's age to complete this topic Procedures Procedure Name Priority Date/Time Associated Diagnosis Comments ANTI HIV 1/2 Routine 03/22/2014 11:17 AM CDT Urticaria from Last 3 Months or Most Recently Relevant to Health Maintenance Results * ANTI HIV 1/2 (03/22/2014 11:17 AM CDT) HIV-1/HIV-2 ANTIBODY Non-Reacti ve Non-Reacti ve 03/22/2014 7:11 PM CDT [facility] Blood specimen (specimen) BLOOD SPECIMEN / Unknown Venipuncture / Unknown 03/22/2014 11:17 AM CDT 03/22/2014 11:17 AM CDT [facility]arrative [facility] - 03/22/2014 7:11 PM CDT HIV-1 p24 and HIV-1/HIV-2 Ab not detected Dottie DOMINGO SEND OUTS [facility] [address] [place] [address], from Last 3 Months or Most Recently Relevant to Health Maintenance Advance Directives * Full Code (Latest Code Status on File) Date Activated Date Inactivated Comments 12/09/2020 5:21 AM 12/09/2020 11:13 PM Question Answer Comments Code Status Discussion: Not Discussed Care Teams Council On Aging Director Relationship Specialty Start Date End Date Pcp, No . PCP - General 02/15/14
--- OUTSIDE RECORDS SUMMARY | 2024-02-22 21:33 | XMS_ITS | Encounter Summary ---
Author Organization [place] Address [address] [place] [address] Care Team Providers Care Collar Baster Name Role Phone Gilberto Weathers MD Primary Care Provider [phone] Finn Harris MD Unavailable Shirin vailable Wanda Bautista MD Unavailable [phone] Gilberto Weathers MD Unavailable [phone] Finn Harris MD Unavailable Shirin vailable Wanda Bautista MD Unavailable [phone] Mariah Mcmanus [facility] Unavailable Sarah Castañeda [facility] Unavailable Mariah Mcmanus [facility] Unavailable [phone] Ky Marcos MD Unavailable Ky Marcos MD Unavailable Na Ibarra [facility] Unavailable [phone] Encounter Details Date Type Department Care Team (Late st Contact Info) Description 01/06/2022 [facility] Medical Advice [address] [place] [address] Mariah Mcmanus, [facility] [address] [facility] [address] [place] [address] Social History Tobacco Use Types [...] documented as of this encounter Care Teams Collar Baster Relationship Specialty Start Date End Date Gilberto Weathers MD [address] [place] [address] PCP - General Internal Medicine 01/13/16 Finn Harris MD [address] [place] [address] Endocrinology, Diabetes, and Metabolism 12/23/20 Wanda Bautista MD [address] [place] [address] Ophthalmology 12/31/20 Gilberto Weathers MD [address] [place] [address] Assigned PCP 01/05/21 Finn Harris MD NO INFO AVAILABLE Assigned Endocrinology Provider 02/09/21 07/03/22 Wanda Bautista MD [address] [place] [address] Assigned Surgical Provider 02/02/21 09/11/22 Mariah Mcmanus, [facility] [address] [facility] [address] [place] [address] Assigned MTM Pharmacist 10/18/2102/06 Sarah Castañeda [facility] [address] [place] [address] Pharmacist 02/03/22 02/23/22 Mariah Mcmanus, [facility] [address] [facility] [address] [place] [address] Assigned MTM Pharmacist 02/18/2202/21 Ky Marcos MD [address] [place] [address] Physician Endocrinology, Diabetes, and Metabolism 02/20/22 Ky Marcos MD [address] [place] [address] Assigned Endocrinology Provider 07/04/22 01/13/24 Na Ibarra [facility] [address] [place] [address] Pharmacist Pharmacist 12/21/22 documented as of this encounter
[2024-02-22] MEDS: IBUPROFEN 600 MG TABLET PO (21:39)
== END 2024-02-22 21:50 | disposition home or self-care (01) ==
PROVIDERS: Emergency Provider Emergency Medicine; PCP Internal Medicine
DX: H66.92 Otitis media, unspecified, left ear (principal); R51.9 Headache, unspecified
CPT/HCPCS: 99282; 99283; A9270